=== PATIENT | female | born 1965 | race Two or more races ===

== ENCOUNTER 2020-04-25 14:45 | Outpatient (REF) | payer MEDICARE, MEDICAID, SELFPAY | END 2020-04-25 14:46 | disposition home or self-care (01) | LOC: HO.LAB 14:45 | PROVIDERS: PCP Internal Medicine; Visit Provider Internal Medicine | DX: Z20.828 Contact with and (suspected) exposure to other viral communicable diseases (principal) | CPT/HCPCS: 36415; 87635 ==

== ENCOUNTER 2020-06-30 12:10 | Outpatient (REF) | payer MEDICARE, MEDICAID, SELFPAY ==
--- NOTE | 2020-06-30 | MM_ITS ---
EXAMINATION: MM SCREENING DIGITAL BREAST TOMOSYNTHESIS, BILATERAL CLINICAL INFORMATION: Screening. Asymptomatic. The lifetime risk of breast cancer based on the Tyrer-Cuzick Model is 10.1%. COMPARISON: Mammography: February 19, 2019 and studies dating back to October 31, 2016 TECHNIQUE: Digital breast tomosynthesis is performed in both the craniocaudal and mediolateral oblique views along with computer-aided detection (CAD). Synthesized 2D images are generated from the tomosynthesis. FINDINGS: The breasts are heterogeneously dense, which may obscure small masses (ACR BI-RADS breast composition Category c). There are no significant masses, abnormal calcifications, or other abnormalities. MM/MM tomosynthesis screening BI IMPRESSION: There are no significant changes from prior study. ASSESSMENT: BI-RADS 1: Negative RECOMMENDATION: Routine annual mammography screening. This patient's information was entered into a reminder system with a target due date for their next mammogram.
== END 2020-06-30 12:11 | disposition home or self-care (01) ==
LOC: HO.MAMMO 12:10
PROVIDERS: PCP Internal Medicine; Visit Provider Internal Medicine
DX: M05.9 Rheumatoid arthritis with rheumatoid factor, unspecified (principal); F17.210 Nicotine dependence, cigarettes, uncomplicated; Z12.31 Encounter for screening mammogram for malignant neoplasm of breast; Z79.899 Other long term (current) drug therapy; Z79.891 Long term (current) use of opiate analgesic
CPT/HCPCS: 77063; 77067; Q3014

== ENCOUNTER 2020-07-11 11:06 | Outpatient (REF) | payer MEDICARE, MEDICAID, SELFPAY | END 2020-07-11 11:07 | disposition home or self-care (01) | LOC: HO.LAB 11:06 | PROVIDERS: PCP Internal Medicine; Visit Provider Internal Medicine | DX: Z20.828 Contact with and (suspected) exposure to other viral communicable diseases (principal); K59.4 Anal spasm; K64.9 Unspecified hemorrhoids; K21.9 Gastro-esophageal reflux disease without esophagitis; K59.04 Chronic idiopathic constipation | CPT/HCPCS: C9803; Q3014; U0003 ==

== ENCOUNTER 2020-07-26 11:30 | Outpatient (REF) | payer MEDICARE, MEDICAID, SELFPAY | END 2020-07-26 11:31 | disposition home or self-care (01) | LOC: HO.LAB 11:30 | PROVIDERS: Visit Provider Internal Medicine | DX: Z20.828 Contact with and (suspected) exposure to other viral communicable diseases (principal) | CPT/HCPCS: 36415; C9803; U0003 ==

== ENCOUNTER 2020-09-22 12:34 | Outpatient (REF) | payer MEDICARE, MEDICAID, SELFPAY ==
[2020-09-22 13:20] LABS: Hemoglobin 11.7 g/dl (12.0-16.0); MANUAL DIFF FLAG SCAN; Red Cell Distribution Width 14.6 % (11.0-16.0); SCAN SMEAR FLAG 1
[2020-09-22 13:22] LABS: Basophils Absolute Auto 0.1 X10*3/uL (0.0-0.2); Basophils Percent Auto 0.9 % (0-2); Eosinophils Absolute Auto 0.1 X10*3/uL (0.0-0.4); Eosinophils Percent Auto 1.6 % (0-4); Hematocrit 36.7 % (37-47); Imm Gran Abs Auto 0.02 X10*3/uL (0.00-0.03); Imm Gran Pct Auto 0.3 % (0.0-0.4); Mean Corpuscular HGB Conc 31.9 g/dl (31.0-35.0); Mean Corpuscular Hemoglobin 29.5 pg (27.0-33.0); Mean Corpuscular Volume 92.7 fL (80-98); Mean Platelet Volume 13.9 fL (9.4-12.3); Monocytes Absolute Auto 0.4 X10*3/uL (0.1-1.2); Monocytes Percent Auto 6.4 % (2-11); Neutrophils Absolute Auto 3.3 X10*3/uL (2.0-8.3); Neutrophils Percent Auto 56.8 % (45-73); Platelet Count 131 X10*3/uL (160-400); Red Blood Count 3.96 X10*6/uL (4.20-5.50); White Blood Count 5.7 X10*3/uL (4.8-10.8)
[2020-09-22 13:28] LABS: PLT ABN DIST 1
[2020-09-22 13:40] LABS: Alanine Aminotransferase 41 U/L (0-31); Albumin Level 4.4 g/dL (3.5-5.0); Alkaline Phosphatase 91 U/L (39-117); Anion Gap 10 (12-20); Aspartate Amino Transferase 25 U/L (5-31); Bilirubin Total 0.6 mg/dL (0.0-1.0); Blood Urea Nitrogen 14 mg/dL (9-16); C Reactive Protein 0.05 mg/dL (< or = 0.50); Calcium 10.3 mg/dL (8.4-10.2); Carbon Dioxide 26 mmol/L (22-29); Chloride 109 mmol/L (96-108); Estimated Glomerular Filt Rate > 60; Glucose Random 94 mg/dL (60-115); Potassium 4.3 mmol/L (3.3-5.1); Sodium 141 mmol/L (135-145); Total Protein 6.6 g/dL (6.5-8.0)
[2020-09-22 14:19] LABS: Erythrocyte Sedimentation Rate 2 MM/HR (0-20)
[2020-09-26 13:47] LABS: Calcium (PTHI) 10.4 mg/dL (8.6-10.4); PTHI 111 pg/mL (14-64)
== END 2020-09-22 12:35 | disposition home or self-care (01) ==
LOC: HO.LAB 12:34
PROVIDERS: PCP Student in an Organized Health Care Education/Training Program; Visit Provider Internal Medicine
DX: M05.9 Rheumatoid arthritis with rheumatoid factor, unspecified (principal); E21.2 Other hyperparathyroidism; E78.00 Pure hypercholesterolemia, unspecified; I10 Essential (primary) hypertension
CPT/HCPCS: 36415; 80053; 83970; 85025; 85652; 86140

== ENCOUNTER → 2020-09-28 14:59 | Outpatient (BNVA) | payer MEDICARE, MEDICAID, SELFPAY | PROVIDERS: PCP Internal Medicine; Visit Provider Student in an Organized Health Care Education/Training Program | DX: M05.9 Rheumatoid arthritis with rheumatoid factor, unspecified (principal); F17.200 Nicotine dependence, unspecified, uncomplicated; Z79.899 Other long term (current) drug therapy; Z71.6 Tobacco abuse counseling | CPT/HCPCS: 99212 ==

== ENCOUNTER → 2020-10-04 13:07 | Outpatient (BNVA) | payer MEDICARE, MEDICAID, SELFPAY | PROVIDERS: PCP Internal Medicine; Visit Provider Nurse Practitioner | DX: K59.04 Chronic idiopathic constipation (principal); K21.9 Gastro-esophageal reflux disease without esophagitis; K64.9 Unspecified hemorrhoids; K59.4 Anal spasm; R13.11 Dysphagia, oral phase | CPT/HCPCS: Q3014 ==

== ENCOUNTER 2020-10-19 14:28 | Outpatient (REF) | payer MEDICARE, MEDICAID, SELFPAY ==
--- NOTE | ~2020-10-19 | FL_ITS ---
EXAMINATION: FL BARIUM SWALLOW, MODIFIED CLINICAL INFORMATION: Dysphagia. COMPARISON: None TECHNIQUE: Lateral fluoroscopy was provided in upright sitting chair with oral administration of various consistencies of liquid and solid food by the speech therapist. FINDINGS: On oral administration of thin, thick liquids, semisolid and solid food, there is normal propagation of bolus from the oral cavity through the pharynx into the esophagus without any evidence of obstruction, narrowing. No laryngeal penetration or aspiration seen. FLUOROSCOPY TIME: 1.3 minutes. DOSE AREA PRODUCT: 1.064 uGy-m2 (microgray-meter squared). FL/FL barium swallow modified IMPRESSION: 1. Unremarkable modified barium swallow exam. 2. Correlate with speech therapy results.
== END 2020-10-19 14:29 | disposition home or self-care (01) ==
LOC: HO.XRAY 14:28
PROVIDERS: Visit Provider Nurse Practitioner
DX: R13.11 Dysphagia, oral phase (principal)
CPT/HCPCS: 74230; 92611

== ENCOUNTER 2020-11-29 11:52 | Outpatient (REF) | payer MEDICARE, MEDICAID, SELFPAY ==
[2020-11-29 13:19] LABS: MANUAL DIFF FLAG NO
[2020-11-29 13:42] LABS: Basophils Absolute Auto 0.1 X10*3/uL (0.0-0.2); Basophils Percent Auto 0.5 % (0-2); Eosinophils Absolute Auto 0.2 X10*3/uL (0.0-0.4); Eosinophils Percent Auto 1.7 % (0-4); Hematocrit 41.3 % (37-47); Hemoglobin 13.2 g/dl (12.0-16.0); Imm Gran Abs Auto 0.03 X10*3/uL (0.00-0.03); Imm Gran Pct Auto 0.3 % (0.0-0.4); Lymphocytes Absolute Auto 1.4 X10*3/uL (1.2-4.9); Lymphocytes Percent Auto 13.5 % (20-40); Mean Corpuscular Hemoglobin 29.5 pg (27.0-33.0); Mean Corpuscular Volume 92.2 fL (80-98); Mean Platelet Volume 13.6 fL (9.4-12.3); Monocytes Absolute Auto 0.4 X10*3/uL (0.1-1.2); Monocytes Percent Auto 3.9 % (2-11); Neutrophils Absolute Auto 8.3 X10*3/uL (2.0-8.3); Neutrophils Percent Auto 80.1 % (45-73); Platelet Count 161 X10*3/uL (160-400); Red Blood Count 4.48 X10*6/uL (4.20-5.50); Red Cell Distribution Width 15.7 % (11.0-16.0); White Blood Count 10.4 X10*3/uL (4.8-10.8)
[2020-11-29 13:50] LABS: Alanine Aminotransferase 23 U/L (0-31); Albumin Level 4.7 g/dL (3.5-5.0); Alkaline Phosphatase 92 U/L (39-117); Anion Gap 13 (12-20); Aspartate Amino Transferase 29 U/L (5-31); Bilirubin Total 0.8 mg/dL (0.0-1.0); Blood Urea Nitrogen 15 mg/dL (9-16); C Reactive Protein 0.08 mg/dL (< or = 0.50); Calcium 11.5 mg/dL (8.4-10.2); Carbon Dioxide 27 mmol/L (22-29); Chloride 105 mmol/L (96-108); Estimated Glomerular Filt Rate > 60; Glucose Random 104 mg/dL (60-115); Potassium 4.4 mmol/L (3.3-5.1); Sodium 141 mmol/L (135-145); Total Protein 7.5 g/dL (6.5-8.0)
[2020-11-29 14:33] LABS: Erythrocyte Sedimentation Rate 5 MM/HR (0-20)
== END 2020-11-29 11:53 | disposition home or self-care (01) ==
LOC: HO.LAB 11:52
PROVIDERS: PCP Internal Medicine; Visit Provider Student in an Organized Health Care Education/Training Program
DX: M05.9 Rheumatoid arthritis with rheumatoid factor, unspecified (principal)
CPT/HCPCS: 36415; 80053; 85025; 85652; 86140

== ENCOUNTER → 2020-12-01 14:23 | Outpatient (BNVA) | payer MEDICARE, MEDICAID, SELFPAY | PROVIDERS: PCP Internal Medicine; Visit Provider Student in an Organized Health Care Education/Training Program | DX: M05.9 Rheumatoid arthritis with rheumatoid factor, unspecified (principal); M77.01 Medial epicondylitis, right elbow; Z79.899 Other long term (current) drug therapy | CPT/HCPCS: 99212 ==

== ENCOUNTER 2021-03-03 06:42 | Outpatient (REF) | payer MEDICARE, MEDICAID, SELFPAY ==
--- NOTE | ~2021-03-03 | CT_ITS ---
EXAMINATION: CT ABDOMEN AND PELVIS WITHOUT CONTRAST CLINICAL INFORMATION: Right upper quadrant pain. COMPARISON: CT abdomen/pelvis dated 05/10/2018. Renal ultrasound dated 04/01/2019. TECHNIQUE: Multidetector volumetric imaging was performed from the superior aspect of the liver through the pubic symphysis. Sagittal and coronal reformatted images were obtained on the technologist's workstation. This CT examination was performed using dose optimization techniques as appropriate, variously including the following: *Automated exposure control *Adjustment of mA and/or kV according to patient size (this includes techniques or standardized protocols for targeted exams where dose is matched to indication/reason for exam; i.e. extremities or head) *Use of iterative reconstruction technique DLP: 349 mGy-cm FINDINGS: LUNG BASES: Within the visualized lung bases, there are new small cystic foci with mild peripheral wall thickening, which may represent areas of bronchiectasis versus dilated airspaces. Findings are new when compared to the prior examination. LIVER, GALLBLADDER, AND BILIARY TREE: The liver is normal in size, shape, and attenuation. No focal hepatic lesion or biliary ductal dilatation is present. The gallbladder is nondistended with no evidence of radiopaque gallstones, gallbladder wall thickening, or obvious pericholecystic inflammatory changes. PANCREAS: Unremarkable. SPLEEN: Unremarkable. ADRENAL GLANDS: Unremarkable. KIDNEYS AND URETERS: The kidneys are normal in size, shape, and attenuation. There is a distal right ureteral stone measuring approximately 0.8 x 0.7 x 0.9 cm and 1121 Hounsfield units. This is located approximately 1 cm proximal to the right ureterovesicular junction. There is [id number] right-sided hydroureteronephrosis. No left-sided renal or ureteral stone. No left-sided hydronephrosis or hydroureter. BLADDER: Unremarkable. GASTROINTESTINAL TRACT: No bowel wall thickening or associated inflammatory change. No small or large bowel obstruction. Unremarkable appendix. PERITONEAL CAVITY: No intra-abdominal free air or free fluid. No intra-abdominal mass or organized fluid collection/abscess formation. ABDOMINAL WALL: No significant hernia is appreciated. LYMPH NODES: No significant lymphadenopathy, however, evaluation is limited without IV contrast. VASCULAR: Unremarkable. PELVIC VISCERA: The uterus and adnexa are unremarkable. OSSEOUS STRUCTURES: Unremarkable. CT/CT abdomen pelvis wo con IMPRESSION: 1. Distal right ureteral stone measuring up to 0.9 cm located approximately 1 cm proximal to the right ureterovesicular junction. There is [id number] proximal right-sided hydroureteronephrosis. 2. Small cystic foci within the visualized lung bases with peripheral wall thickening, new when compared to the prior examination. This may represent bronchiectasis versus dilated airspaces. If there is clinical concern, dedicated CT imaging of the chest could help further evaluate.
[2021-03-03] MEDS: Barium Sulfate Oral (Mocha) 450 ML ORAL.SUSP 900 ML PO (09:06)
[2021-03-03 10:22] LABS: MANUAL DIFF FLAG NO
[2021-03-03 10:33] LABS: Basophils Absolute Auto 0.1 X10*3/uL (0.0-0.2); Basophils Percent Auto 0.9 % (0-2); Eosinophils Absolute Auto 0.2 X10*3/uL (0.0-0.4); Eosinophils Percent Auto 2.7 % (0-4); Hemoglobin 11.9 g/dl (12.0-16.0); Imm Gran Abs Auto 0.01 X10*3/uL (0.00-0.03); Imm Gran Pct Auto 0.1 % (0.0-0.4); Lymphocytes Absolute Auto 2.4 X10*3/uL (1.2-4.9); Lymphocytes Percent Auto 31.5 % (20-40); Mean Corpuscular HGB Conc 32.2 g/dl (31.0-35.0); Monocytes Absolute Auto 0.5 X10*3/uL (0.1-1.2); Monocytes Percent Auto 6.5 % (2-11); Neutrophils Absolute Auto 4.4 X10*3/uL (2.0-8.3); Neutrophils Percent Auto 58.3 % (45-73); Platelet Count 129 X10*3/uL (160-400); Red Blood Count 4.11 X10*6/uL (4.20-5.50); Red Cell Distribution Width 15.3 % (11.0-16.0); White Blood Count 7.5 X10*3/uL (4.8-10.8)
[2021-03-03 10:44] LABS: Alanine Aminotransferase 20 U/L (0-31); Albumin Level 4.3 g/dL (3.5-5.0); Alkaline Phosphatase 80 U/L (39-117); Anion Gap 12 (12-20); Aspartate Amino Transferase 22 U/L (5-31); Bilirubin Total 0.3 mg/dL (0.0-1.0); Blood Urea Nitrogen 14 mg/dL (9-16); C Reactive Protein 0.07 mg/dL (< or = 0.50); Calcium 8.9 mg/dL (8.4-10.2); Carbon Dioxide 27 mmol/L (22-29); Chloride 109 mmol/L (96-108); Estimated Glomerular Filt Rate > 60; Glucose Random 80 mg/dL (60-115); Potassium 4.5 mmol/L (3.3-5.1); Sodium 143 mmol/L (135-145); Total Protein 6.9 g/dL (6.5-8.0)
[2021-03-03 11:14] LABS: Erythrocyte Sedimentation Rate 3 MM/HR (0-20)
== END 2021-03-03 06:43 | disposition home or self-care (01) ==
LOC: HO.CT 06:42
PROVIDERS: Absent Provider Student in an Organized Health Care Education/Training Program; PCP Internal Medicine; Visit Provider Internal Medicine
DX: M05.9 Rheumatoid arthritis with rheumatoid factor, unspecified (principal); R10.11 Right upper quadrant pain; N13.39 Other hydronephrosis
CPT/HCPCS: 36415; 74176; 80053; 85025; 85652; 86140

== ENCOUNTER → 2021-03-09 12:24 | Outpatient (BNVA) | payer MEDICARE, MEDICAID, SELFPAY | PROVIDERS: PCP Internal Medicine; Visit Provider Nurse Practitioner Family | DX: M05.9 Rheumatoid arthritis with rheumatoid factor, unspecified (principal); M77.01 Medial epicondylitis, right elbow; Z79.899 Other long term (current) drug therapy | CPT/HCPCS: 99212 ==

== ENCOUNTER → 2021-03-30 12:30 | Outpatient (BNVA) | payer MEDICARE, MEDICAID, SELFPAY | PROVIDERS: PCP Internal Medicine; Visit Provider Nurse Practitioner Family | DX: M05.9 Rheumatoid arthritis with rheumatoid factor, unspecified (principal); Z79.899 Other long term (current) drug therapy | CPT/HCPCS: 99212 ==

== ENCOUNTER → 2021-04-03 13:18 | Outpatient (BNVA) | payer MEDICARE, MEDICAID, SELFPAY | PROVIDERS: PCP Internal Medicine; Visit Provider Nurse Practitioner | CPT/HCPCS: Q3014 ==

== ENCOUNTER 2021-04-05 14:06 | Outpatient (REF) | payer MEDICARE, MEDICAID, SELFPAY ==
[2021-04-05 15:12] LABS: Anion Gap 13 (12-20); Blood Urea Nitrogen 9 mg/dL (9-16); Carbon Dioxide 27 mmol/L (22-29); Chloride 107 mmol/L (96-108); Estimated Glomerular Filt Rate > 60; Potassium 3.8 mmol/L (3.3-5.1); Sodium 143 mmol/L (135-145)
== END 2021-04-05 14:07 | disposition home or self-care (01) ==
LOC: HO.LAB 14:06
PROVIDERS: PCP Internal Medicine; Visit Provider Internal Medicine Nephrology
DX: E83.52 Hypercalcemia (principal); I10 Essential (primary) hypertension
CPT/HCPCS: 36415; 80051; 82310; 82565; 84520

== ENCOUNTER 2021-05-05 11:19 | Outpatient (REF) | payer MEDICARE, MEDICAID, SELFPAY ==
[2021-05-05 11:56] LABS: MANUAL DIFF FLAG NO
[2021-05-05 12:01] LABS: Basophils Percent Auto 0.5 % (0-2); Eosinophils Absolute Auto 0.2 X10*3/uL (0.0-0.4); Eosinophils Percent Auto 2.3 % (0-4); Hematocrit 38.4 % (37-47); Hemoglobin 12.7 g/dl (12.0-16.0); Imm Gran Abs Auto 0.02 X10*3/uL (0.00-0.03); Imm Gran Pct Auto 0.3 % (0.0-0.4); Mean Corpuscular HGB Conc 33.1 g/dl (31.0-35.0); Mean Corpuscular Hemoglobin 29.6 pg (27.0-33.0); Mean Corpuscular Volume 89.5 fL (80-98); Mean Platelet Volume 12.3 fL (9.4-12.3); Monocytes Absolute Auto 0.5 X10*3/uL (0.1-1.2); Monocytes Percent Auto 6.4 % (2-11); Neutrophils Absolute Auto 4.8 X10*3/uL (2.0-8.3); Neutrophils Percent Auto 63.5 % (45-73); Platelet Count 178 X10*3/uL (160-400); Red Blood Count 4.29 X10*6/uL (4.20-5.50); Red Cell Distribution Width 15.5 % (11.0-16.0); White Blood Count 7.5 X10*3/uL (4.8-10.8)
[2021-05-05 12:38] LABS: Alanine Aminotransferase 14 U/L (0-31); Albumin Level 4.6 g/dL (3.5-5.0); Alkaline Phosphatase 66 U/L (39-117); Anion Gap 12 (12-20); Aspartate Amino Transferase 19 U/L (5-31); Bilirubin Total 0.5 mg/dL (0.0-1.0); Blood Urea Nitrogen 13 mg/dL (9-16); Calcium 9.1 mg/dL (8.4-10.2); Carbon Dioxide 26 mmol/L (22-29); Chloride 108 mmol/L (96-108); Cholesterol 196 mg/dL; Estimated Glomerular Filt Rate > 60; Glucose Random 91 mg/dL (60-115); HDL Cholesterol 96 mg/dL; LDL Cholesterol Calculated 91 mg/dl; Potassium 4.6 mmol/L (3.3-5.1); Sodium 141 mmol/L (135-145); Total Protein 7.1 g/dL (6.5-8.0); Triglycerides 49 mg/dL
[2021-05-08 13:41] LABS: Calcium (PTHI) 8.8 mg/dL (8.6-10.4); PTHI 27 pg/mL (14-64)
== END 2021-05-05 11:20 | disposition home or self-care (01) ==
LOC: HO.LAB 11:19
PROVIDERS: PCP Internal Medicine; Visit Provider Internal Medicine
DX: Z00.01 Encounter for general adult medical examination with abnormal findings (principal); I10 Essential (primary) hypertension; N13.39 Other hydronephrosis; R10.11 Right upper quadrant pain
CPT/HCPCS: 36415; 80053; 80061; 83970; 85025

== ENCOUNTER 2021-05-25 12:15 | Outpatient (REF) | payer MEDICARE, MEDICAID, SELFPAY ==
[2021-05-25 13:00] LABS: Basophils Absolute Auto 0.1 X10*3/uL (0.0-0.2); Basophils Percent Auto 0.4 % (0-2); Lymphocytes Absolute Auto 2.1 X10*3/uL (1.2-4.9); MANUAL DIFF FLAG SCAN; Neutrophils Percent Auto 72.8 % (45-73); SCAN SMEAR FLAG 1
[2021-05-25 13:02] LABS: Eosinophils Absolute Auto 0.1 X10*3/uL (0.0-0.4); Eosinophils Percent Auto 0.8 % (0-4); Hematocrit 40.4 % (37.0-47.0); Hemoglobin 13.1 g/dl (12.0-16.0); Imm Gran Abs Auto 0.06 X10*3/uL (0.00-0.03); Imm Gran Pct Auto 0.5 % (0.0-0.4); Lymphocytes Percent Auto 18.7 % (20-40); Mean Corpuscular HGB Conc 32.4 g/dl (31.0-35.0); Mean Corpuscular Hemoglobin 29.4 pg (27.0-33.0); Mean Corpuscular Volume 90.6 fL (80.0-98.0); Mean Platelet Volume 13.7 fL (9.4-12.3); Monocytes Absolute Auto 0.8 X10*3/uL (0.1-1.2); Monocytes Percent Auto 6.8 % (2-11); PLT CLUMP 1; Red Blood Count 4.46 X10*6/uL (4.20-5.50); Red Cell Distribution Width 15.6 % (11.0-16.0)
[2021-05-25 13:15] LABS: PLT ABN DIST 1
[2021-05-25 13:21] LABS: Platelet Count 151 X10*3/uL (160-400); White Blood Count 11.4 X10*3/uL (4.8-10.8)
[2021-05-25 13:22] LABS: SLIDE REVIEW VERIFIED
[2021-05-25 13:34] LABS: Alanine Aminotransferase 28 U/L (0-31); Albumin Level 4.7 g/dL (3.5-5.0); Alkaline Phosphatase 72 U/L (39-117); Anion Gap 14 (12-20); Aspartate Amino Transferase 29 U/L (5-31); Bilirubin Total 0.5 mg/dL (0.0-1.0); Blood Urea Nitrogen 16 mg/dL (9-16); C Reactive Protein 0.08 mg/dL (< or = 0.50); Carbon Dioxide 25 mmol/L (22-29); Chloride 108 mmol/L (96-108); Estimated Glomerular Filt Rate > 60; Glucose Random 95 mg/dL (60-115); Sodium 142 mmol/L (135-145); Total Protein 7.7 g/dL (6.5-8.0)
[2021-05-25 13:52] LABS: Erythrocyte Sedimentation Rate 5 MM/HR (0-20)
== END 2021-05-25 12:16 | disposition home or self-care (01) ==
LOC: HO.LAB 12:15
PROVIDERS: PCP Internal Medicine; Visit Provider Nurse Practitioner Family
DX: M05.9 Rheumatoid arthritis with rheumatoid factor, unspecified (principal); K59.04 Chronic idiopathic constipation; K21.9 Gastro-esophageal reflux disease without esophagitis; Z80.0 Family history of malignant neoplasm of digestive organs; Z79.899 Other long term (current) drug therapy
CPT/HCPCS: 36415; 80053; 85025; 85652; 86140; Q3014

== ENCOUNTER 2021-05-29 12:58 | Outpatient (REF) | payer MEDICARE, MEDICAID, SELFPAY ==
--- NOTE | ~2021-05-29 | XR_ITS ---
EXAMINATION: XR HAND, RIGHT XR HAND, LEFT CLINICAL INFORMATION: Rheumatoid arthritis COMPARISON: None TECHNIQUE: Right hand, 3 views Left ankle, 3 views FINDINGS: Right hand: Bones have normal alignment throughout the hand or wrist. The joint spaces of the wrist are well-preserved. There is 0.3 cm of ulna negative variance. The metacarpophalangeal joints and proximal interphalangeal joints are unremarkable. Small osteophytes and mild joint space narrowing at second and third DIP joints. No periarticular osteoporosis, erosions or periostitis. Left hand: Bones have normal alignment throughout the hand or wrist. The joint spaces of the wrist are well-preserved. There is 0.3 cm of ulna negative variance. The metacarpophalangeal joints and proximal interphalangeal joints are unremarkable. Small osteophytes are noted at several interphalangeal joints. No periarticular osteoporosis, erosions or periostitis. XR/XR hand LT min 3V IMPRESSION: * No radiographic evidence of rheumatoid arthritis in either hand or wrist. 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
--- NOTE | ~2021-05-29 | XR_ITS ---
EXAMINATION: XR HAND, RIGHT XR HAND, LEFT CLINICAL INFORMATION: Rheumatoid arthritis COMPARISON: None TECHNIQUE: Right hand, 3 views Left ankle, 3 views FINDINGS: Right hand: Bones have normal alignment throughout the hand or wrist. The joint spaces of the wrist are well-preserved. There is 0.3 cm of ulna negative variance. The metacarpophalangeal joints and proximal interphalangeal joints are unremarkable. Small osteophytes and mild joint space narrowing at second and third DIP joints. No periarticular osteoporosis, erosions or periostitis. Left hand: Bones have normal alignment throughout the hand or wrist. The joint spaces of the wrist are well-preserved. There is 0.3 cm of ulna negative variance. The metacarpophalangeal joints and proximal interphalangeal joints are unremarkable. Small osteophytes are noted at several interphalangeal joints. No periarticular osteoporosis, erosions or periostitis. XR/XR hand RT min 3V IMPRESSION: * No radiographic evidence of rheumatoid arthritis in either hand or wrist. 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
== END 2021-05-29 12:59 | disposition home or self-care (01) ==
LOC: HO.XRAY 12:58
PROVIDERS: PCP Internal Medicine; Visit Provider Nurse Practitioner Family
DX: M05.9 Rheumatoid arthritis with rheumatoid factor, unspecified (principal); M79.641 Pain in right hand; M79.642 Pain in left hand; Z79.899 Other long term (current) drug therapy
CPT/HCPCS: 73130; 99212

== ENCOUNTER 2021-06-05 11:47 | Outpatient (REF) | payer MEDICARE, MEDICAID, SELFPAY ==
[2021-06-05 12:16] LABS: Basophils Absolute Auto 0.1 X10*3/uL (0.0-0.2); Basophils Percent Auto 0.8 % (0-2); Eosinophils Absolute Auto 0.2 X10*3/uL (0.0-0.4); Eosinophils Percent Auto 1.6 % (0-4); Imm Gran Abs Auto 0.04 X10*3/uL (0.00-0.03); Imm Gran Pct Auto 0.4 % (0.0-0.4); MANUAL DIFF FLAG SCAN; SCAN SMEAR FLAG 1
[2021-06-05 12:17] LABS: Hematocrit 40.8 % (37.0-47.0); Hemoglobin 13.2 g/dl (12.0-16.0); Lymphocytes Absolute Auto 2.1 X10*3/uL (1.2-4.9); Lymphocytes Percent Auto 21.3 % (20-40); Mean Corpuscular HGB Conc 32.4 g/dl (31.0-35.0); Mean Corpuscular Hemoglobin 29.5 pg (27.0-33.0); Mean Corpuscular Volume 91.1 fL (80.0-98.0); Mean Platelet Volume 13.8 fL (9.4-12.3); Monocytes Absolute Auto 0.5 X10*3/uL (0.1-1.2); Monocytes Percent Auto 5.2 % (2-11); Neutrophils Absolute Auto 6.8 x10*3/uL (2.0-8.3); Neutrophils Percent Auto 70.7 % (45-73); Platelet Count 152 X10*3/uL (160-400); Red Blood Count 4.48 X10*6/uL (4.20-5.50); Red Cell Distribution Width 15.4 % (11.0-16.0); White Blood Count 9.7 X10*3/uL (4.8-10.8)
[2021-06-05 12:19] LABS: PLT ABN DIST 1
[2021-06-05 12:35] LABS: SLIDE REVIEW VERIFIED
[2021-06-05 12:51] LABS: Alanine Aminotransferase 60 U/L (0-31); Albumin Level 4.6 g/dL (3.5-5.0); Alkaline Phosphatase 80 U/L (39-117); Anion Gap 16 (12-20); Aspartate Amino Transferase 50 U/L (5-31); Bilirubin Total 0.4 mg/dL (0.0-1.0); Blood Urea Nitrogen 14 mg/dL (9-16); Calcium 9.1 mg/dL (8.4-10.2); Carbon Dioxide 24 mmol/L (22-29); Chloride 107 mmol/L (96-108); Estimated Glomerular Filt Rate > 60; Glucose Random 98 mg/dL (60-115); Potassium 4.6 mmol/L (3.3-5.1); Sodium 142 mmol/L (135-145); Total Protein 7.5 g/dL (6.5-8.0)
== END 2021-06-05 11:48 | disposition home or self-care (01) ==
LOC: HO.LAB 11:47
PROVIDERS: PCP Internal Medicine; Visit Provider Internal Medicine
DX: Z00.00 Encounter for general adult medical examination without abnormal findings (principal); I10 Essential (primary) hypertension; F32.9 Major depressive disorder, single episode, unspecified; F41.8 Other specified anxiety disorders
CPT/HCPCS: 36415; 80053; 85025

== ENCOUNTER 2021-07-27 13:56 | Outpatient (REF) | payer MEDICARE, MEDICAID, SELFPAY ==
[2021-07-27 14:48] LABS: Basophils Absolute Auto 0.1 X10*3/uL (0.0-0.2); Basophils Percent Auto 0.9 % (0-2); Hematocrit 41.5 % (37.0-47.0); Imm Gran Abs Auto 0.03 X10*3/uL (0.00-0.03); Imm Gran Pct Auto 0.4 % (0.0-0.4); MANUAL DIFF FLAG SCAN; SCAN SMEAR FLAG 1
[2021-07-27 14:49] LABS: Eosinophils Absolute Auto 0.1 X10*3/uL (0.0-0.4); Eosinophils Percent Auto 1.5 % (0-4); Hemoglobin 13.5 g/dl (12.0-16.0); Lymphocytes Absolute Auto 1.6 X10*3/uL (1.2-4.9); Lymphocytes Percent Auto 20.6 % (20-40); Mean Corpuscular HGB Conc 32.5 g/dl (31.0-35.0); Mean Corpuscular Hemoglobin 28.4 pg (27.0-33.0); Mean Corpuscular Volume 87.2 fL (80.0-98.0); Mean Platelet Volume 14.3 fL (9.4-12.3); Monocytes Absolute Auto 0.4 X10*3/uL (0.1-1.2); Monocytes Percent Auto 5.4 % (2-11); Neutrophils Absolute Auto 5.7 x10*3/uL (2.0-8.3); Neutrophils Percent Auto 71.2 % (45-73); Platelet Count 150 X10*3/uL (160-400); Red Blood Count 4.76 X10*6/uL (4.20-5.50); Red Cell Distribution Width 13.4 % (11.0-16.0); White Blood Count 7.9 X10*3/uL (4.8-10.8)
[2021-07-27 14:52] LABS: PLT ABN DIST 1
[2021-07-27 15:14] LABS: Alanine Aminotransferase 15 U/L (0-31); Albumin Level 4.5 g/dL (3.5-5.0); Alkaline Phosphatase 87 U/L (39-117); Anion Gap 13 (12-20); Aspartate Amino Transferase 20 U/L (5-31); Bilirubin Total 0.4 mg/dL (0.0-1.0); Blood Urea Nitrogen 13 mg/dL (9-16); C Reactive Protein 0.14 mg/dL (< or = 0.50); Calcium 9.3 mg/dL (8.4-10.2); Carbon Dioxide 25 mmol/L (22-29); Chloride 109 mmol/L (96-108); Estimated Glomerular Filt Rate > 60; Glucose Random 94 mg/dL (60-115); Potassium 4.4 mmol/L (3.3-5.1); Sodium 143 mmol/L (135-145); Total Protein 7.4 g/dL (6.5-8.0)
[2021-07-27 15:50] LABS: Erythrocyte Sedimentation Rate 4 MM/HR (0-20)
== END 2021-07-27 13:57 | disposition home or self-care (01) ==
LOC: HO.LAB 13:56
PROVIDERS: PCP Internal Medicine; Visit Provider Nurse Practitioner Family
DX: M05.9 Rheumatoid arthritis with rheumatoid factor, unspecified (principal); Z79.899 Other long term (current) drug therapy
CPT/HCPCS: 36415; 80053; 85025; 85652; 86140

== ENCOUNTER → 2021-07-31 11:32 | Outpatient (BNVA) | payer MEDICARE, MEDICAID, SELFPAY | PROVIDERS: PCP Internal Medicine; Visit Provider Nurse Practitioner Family | DX: M05.9 Rheumatoid arthritis with rheumatoid factor, unspecified (principal); Z79.899 Other long term (current) drug therapy | CPT/HCPCS: 99212 ==

== ENCOUNTER 2021-08-30 12:43 | Outpatient (REF) | payer MEDICARE, MEDICAID, SELFPAY ==
[2021-08-30 13:11] LABS: MANUAL DIFF FLAG NO
[2021-08-30 14:02] LABS: Basophils Percent Auto 0.6 % (0-2); Eosinophils Absolute Auto 0.1 X10*3/uL (0.0-0.4); Eosinophils Percent Auto 1.1 % (0-4); Hemoglobin 12.9 g/dl (12.0-16.0); Imm Gran Abs Auto 0.02 X10*3/uL (0.00-0.03); Imm Gran Pct Auto 0.3 % (0.0-0.4); Lymphocytes Absolute Auto 1.7 X10*3/uL (1.2-4.9); Lymphocytes Percent Auto 23.8 % (20-40); Mean Corpuscular HGB Conc 33.1 g/dl (31.0-35.0); Mean Corpuscular Hemoglobin 28.4 pg (27.0-33.0); Mean Corpuscular Volume 85.7 fL (80.0-98.0); Mean Platelet Volume 13.2 fL (9.4-12.3); Monocytes Absolute Auto 0.4 X10*3/uL (0.1-1.2); Monocytes Percent Auto 5.9 % (2-11); Neutrophils Percent Auto 68.3 % (45-73); Platelet Count 147 X10*3/uL (160-400); Red Blood Count 4.55 X10*6/uL (4.20-5.50); Red Cell Distribution Width 14.6 % (11.0-16.0); White Blood Count 7.3 X10*3/uL (4.8-10.8)
[2021-08-30 14:39] LABS: Erythrocyte Sedimentation Rate 4 MM/HR (0-20)
[2021-08-30 14:45] LABS: Iron 112 mcg/dL (30-160); Percent Iron Saturation 36 % (15-50); Total Iron Binding Capacity 315 mcg/dL (228-428); Unsaturated Iron Binding 203 ug/dL
[2021-08-30 14:52] LABS: Ferritin 96 ng/mL (10-250)
[2021-08-30 14:57] LABS: Alanine Aminotransferase 12 U/L (0-31); Albumin Level 4.5 g/dL (3.5-5.0); Alkaline Phosphatase 72 U/L (39-117); Anion Gap 11 (12-20); Aspartate Amino Transferase 19 U/L (5-31); Bilirubin Total 0.4 mg/dL (0.0-1.0); C Reactive Protein 0.09 mg/dL (< or = 0.50); Carbon Dioxide 26 mmol/L (22-29); Chloride 108 mmol/L (96-108); Estimated Glomerular Filt Rate > 60; Glucose Random 96 mg/dL (60-115); Potassium 4.5 mmol/L (3.3-5.1); Sodium 140 mmol/L (135-145); Total Protein 7.2 g/dL (6.5-8.0)
[2021-08-30 15:48] LABS: Blood Urea Nitrogen 12 mg/dL (9-16); Calcium 9.5 mg/dL (8.4-10.2)
[2021-08-31 10:29] LABS: HBsAGNum1 0.15 S/CO (0.00-0.99); Hepatitis B Surface Antigen Negative (Negative); ~HepC Num1 0.08 S/CO (0.00-0.79); ~Hepatitis C Antibody Nonreactive (Nonreactive)
[2021-08-31 11:28] LABS: HBS Num1 0.23 mIU/mL (0-7.99); HBc Num1 0.06 S/CO (0.00-0.79); Hepatitis B Core Antibody Nonreactive (Nonreactive); ~Hepatitis B Surface Antibody NONREACTIVE (Nonreactive)
[2021-09-01 09:14] LABS: ~Hepatitis A Antibody IgM Nonreactive (Nonreactive)
[2021-09-01 11:51] LABS: Anti Nuclear Antibody Screen NEGATIVE (NEGATIVE)
[2021-09-04 13:27] LABS: Smooth Muscle Antibody <20 U (<20)
== END 2021-08-30 12:44 | disposition home or self-care (01) ==
LOC: HO.LAB 12:43
PROVIDERS: Absent Provider Nurse Practitioner Family; PCP Internal Medicine; Visit Provider Internal Medicine
DX: E89.2 Postprocedural hypoparathyroidism (principal); F32.5 Major depressive disorder, single episode, in full remission; I10 Essential (primary) hypertension; R74.01 Elevation of levels of liver transaminase levels; M05.9 Rheumatoid arthritis with rheumatoid factor, unspecified; Z79.899 Other long term (current) drug therapy
CPT/HCPCS: 36415; 80053; 82728; 83540; 85025; 85652; 86015; 86038; 86039; 86140; 86704; 86706; 86709; 86803; 87340

== ENCOUNTER 2021-09-12 13:50 | Outpatient (REF) | payer MEDICARE, MEDICAID, SELFPAY ==
--- NOTE | ~2021-09-12 | US_ITS ---
EXAMINATION: US RETROPERITONEAL LIMITED (RENAL ONLY) CLINICAL INFORMATION: No calculus of ureter. COMPARISON: CT abdomen pelvis 03/03/2021. X-ray KUB 04/01/2019. Ultrasound renal 04/01/2019. TECHNIQUE: Real-time imaging of the kidneys and bladder. FINDINGS: RIGHT KIDNEY: 10.9 x 3.6 x 5.1 cm (SAG x AP x TRV). The kidney is normal in size, contour, and echogenicity. Renal cortical thickness is normal. There is a tiny punctate echogenic focus with twinkle artifact in the midpole questionable for a stone. No hydronephrosis. The visualized right proximal ureter is slightly dilated. LEFT KIDNEY: 10.2 x 4.4 x 4.2 cm (SAG x AP x TRV). The kidney is normal in size, contour, and echogenicity. Renal cortical thickness is normal. No calculi or focal parenchymal lesions. No hydronephrosis. US/US renal BI IMPRESSION: Question tiny right renal stone. No hydronephrosis. Mild dilatation of the visualized proximal right ureter. Normal left kidney.
== END 2021-09-12 13:51 | disposition home or self-care (01) ==
LOC: HO.US 13:50
PROVIDERS: Visit Provider Urology
DX: N20.1 Calculus of ureter (principal)
CPT/HCPCS: 76775

== ENCOUNTER 2021-09-28 13:24 | Outpatient (REF) | payer MEDICARE, MEDICAID, SELFPAY ==
--- NOTE | ~2021-09-28 | MM_ITS ---
EXAMINATION: BONE DENSITOMETRY CLINICAL INDICATION: Postmenopausal. COMPARISON: Baseline BD dated 02/04/2018. TECHNIQUE: Using a Rapid Vocabulary DXA System (software version: 13.1) manufactured by [employer], dual-energy x-ray absorptiometry was performed of the lumbar spine and left hip. The images are of good technical quality. Summary results are attached. FINDINGS: AP SPINE L1-L4: Current: BMD 0.894 g/cm2, Z-score -1.3, T-score -2.4, osteopenia, 5.9% decrease from baseline (<5% change is not significant). Baseline: BMD 0.950 g/cm2. LEFT FEMUR, NECK: Current: BMD 0.670 g/cm2, Z-score -1.5, T-score -2.6, osteoporosis. Baseline: BMD 0.777 g/cm2. LEFT FEMUR, TOTAL: Current: BMD 0.704 g/cm2, Z-score -1.6, T-score -2.4, osteopenia, 11.7% decrease from baseline (<5% change is not significant). Baseline: BMD 0.797 g/cm2. IDENTIFIED RISK FACTORS: Rheumatoid arthritis, tobacco use (current smoker), height loss, glucocorticoids (chronic), menopause. HISTORY OF FRACTURE: None listed. MEDICATIONS: Calcium supplements or multivitamin, vitamin D. MM/XR DEXA axial skeleton IMPRESSION: 1. DIAGNOSIS: Osteoporosis based on the lowest T-score value of -2.6 in the femoral neck applying World Health Organization criteria. 2. 10-YEAR FRACTURE RISK PREDICTION, FRAX: According to the guidelines, FRAX calculation should only be performed on patients in the osteopenia bone density category. Therefore, FRAX was not performed on this patient. 3. Treatment Recommendations: NOF guidelines recommend consideration for treatment in postmenopausal women and men age 50 and older presenting with the following: -A hip or vertebral (clinical or morphometric) fracture. -T-score less than or equal to -2.5 at the femoral neck or spine after appropriate evaluation to exclude secondary causes. -Low bone mass at the hip or spine and a 10-year fracture probability by FRAX of greater than or equal to 3% for hip fracture or greater than or equal to 20% for major osteoporotic fracture based on the [place] adapted WHO algorithm. 4. Other Recommendations: All treatment decisions require clinical judgment and consideration of individual patient factors, including patient preferences, comorbidities, previous drug use, risk factors not captured in the FRAX model (e.g. frailty, falls, vitamin D deficiency, increased bone turnover, interval significant decline in bone density) and possible under or overestimation of fracture risk by FRAX. Additional medical evaluation for secondary cause of low bone mineral density may be appropriate. FUTURE SCAN RECOMMENDATION: People with diagnosed cases of osteoporosis or at high risk for fracture should have regular bone mineral density tests. For patients eligible for Medicare, routine testing is allowed once every 2 years. The testing frequency can be increased to one year for patients who have rapidly progressing disease, those who are receiving or discontinuing medical therapy to restore bone mass, or have additional risk factors.
--- NOTE | ~2021-09-28 | MM_ITS ---
EXAMINATION: MM SCREENING DIGITAL BREAST TOMOSYNTHESIS, BILATERAL CLINICAL INFORMATION: Screening. Asymptomatic. The lifetime risk of breast cancer based on the Tyrer-Cuzick Model is 13%. COMPARISON: Mammography: 06/30/2020, 02/19/2019, 02/04/2018 TECHNIQUE: Digital breast tomosynthesis is performed in both the craniocaudal and mediolateral oblique views along with computer-aided detection (CAD). Synthesized 2D images are generated from the tomosynthesis. FINDINGS: There are scattered areas of fibroglandular density (ACR BI-RADS breast composition Category b). There are no significant masses, abnormal calcifications, or other abnormalities. There is stable parenchymal asymmetry mid upper right breast similar to prior studies. No developing density. There are stable calcifications central and central inner right breast on CC view similar to prior exams. The axilla and skin contours are unremarkable. No significant changes. MM/MM tomosynthesis screening BI IMPRESSION: No mammographic evidence of malignancy. ASSESSMENT: BI-RADS 2: Benign RECOMMENDATION: Routine annual mammography screening. This patient's information was entered into a reminder system with a target due date for their next mammogram.
== END 2021-09-28 13:25 | disposition home or self-care (01) ==
LOC: HO.MAMMO 13:24
PROVIDERS: PCP Internal Medicine; Visit Provider Internal Medicine
DX: Z12.31 Encounter for screening mammogram for malignant neoplasm of breast (principal); Z13.820 Encounter for screening for osteoporosis; M81.0 Age-related osteoporosis without current pathological fracture; M05.9 Rheumatoid arthritis with rheumatoid factor, unspecified; Z78.0 Asymptomatic menopausal state; E27.49 Other adrenocortical insufficiency; F17.200 Nicotine dependence, unspecified, uncomplicated; Z79.899 Other long term (current) drug therapy
CPT/HCPCS: 77063; 77067; 77080

== ENCOUNTER → 2021-11-01 11:30 | Outpatient (BNVA) | payer MEDICARE, MEDICAID, SELFPAY | PROVIDERS: PCP Internal Medicine; Visit Provider Nurse Practitioner Family | DX: M05.9 Rheumatoid arthritis with rheumatoid factor, unspecified (principal); Z79.899 Other long term (current) drug therapy | CPT/HCPCS: 99212 ==

== ENCOUNTER → 2021-11-23 16:26 | Outpatient (BNVA) | payer OTHER, MEDICAID, SELFPAY | PROVIDERS: PCP Internal Medicine; Visit Provider Nurse Practitioner | DX: Z13.89 Encounter for screening for other disorder (principal) ==

== ENCOUNTER 2022-01-09 13:35 | Outpatient (REF) | payer MEDICARE, MEDICAID, SELFPAY ==
[2022-01-09 13:45] LABS: MANUAL DIFF FLAG NO
[2022-01-09 13:53] LABS: Basophils Percent Auto 0.4 % (0-2); Eosinophils Absolute Auto 0.1 X10*3/uL (0.0-0.4); Eosinophils Percent Auto 1.1 % (0-4); Hematocrit 38.5 % (37.0-47.0); Hemoglobin 12.5 g/dl (12.0-16.0); Imm Gran Abs Auto 0.05 X10*3/uL (0.00-0.03); Imm Gran Pct Auto 0.5 % (0.0-0.4); Lymphocytes Absolute Auto 1.8 X10*3/uL (1.2-4.9); Mean Corpuscular HGB Conc 32.5 g/dl (31.0-35.0); Mean Corpuscular Hemoglobin 28.5 pg (27.0-33.0); Mean Corpuscular Volume 87.7 fL (80.0-98.0); Mean Platelet Volume 12.8 fL (9.4-12.3); Monocytes Absolute Auto 0.5 X10*3/uL (0.1-1.2); Monocytes Percent Auto 4.5 % (2-11); Neutrophils Absolute Auto 7.7 x10*3/uL (2.0-8.3); Neutrophils Percent Auto 75.5 % (45-73); Platelet Count 150 X10*3/uL (160-400); Red Blood Count 4.39 X10*6/uL (4.20-5.50); White Blood Count 10.1 X10*3/uL (4.8-10.8)
[2022-01-09 15:06] LABS: Erythrocyte Sedimentation Rate 6 MM/HR (0-20)
[2022-01-09 15:54] LABS: Alanine Aminotransferase 12 U/L (0-31); Alkaline Phosphatase 73 U/L (39-117); Anion Gap 13 (12-20); Aspartate Amino Transferase 18 U/L (5-31); Bilirubin Total 0.2 mg/dL (0.0-1.0); Blood Urea Nitrogen 8 mg/dL (9-16); Calcium 8.6 mg/dL (8.4-10.2); Carbon Dioxide 25 mmol/L (22-29); Chloride 107 mmol/L (96-108); Estimated Glomerular Filt Rate > 60; Glucose Random 119 mg/dL (60-115); Potassium 4.8 mmol/L (3.3-5.1); Sodium 140 mmol/L (135-145); Total Protein 6.5 g/dL (6.5-8.0)
== END 2022-01-09 13:36 | disposition home or self-care (01) ==
LOC: HO.LAB 13:35
PROVIDERS: PCP Internal Medicine; Visit Provider Nurse Practitioner Family
DX: M05.9 Rheumatoid arthritis with rheumatoid factor, unspecified (principal)
CPT/HCPCS: 36415; 80053; 85025; 85652; 86140

== ENCOUNTER 2022-02-05 11:44 | Outpatient (REF) | payer MEDICARE, MEDICAID, SELFPAY ==
--- NOTE | ~2022-02-05 | XR_ITS ---
EXAMINATION: XR KNEE, RIGHT CLINICAL INFORMATION: Osteoarthritis. COMPARISON: 05/15/2019. TECHNIQUE: Four views of the right knee. FINDINGS: There is no evidence of acute fracture or dislocation of the right knee. Right knee joint spaces are maintained. There is minimal spurring undersurface of the patella. There is minimal amount of patella fluid. XR/XR knee RT 4V IMPRESSION: No significant bony abnormality of the right knee identified.
[2022-02-05 11:57] LABS: MANUAL DIFF FLAG NO
[2022-02-05 12:30] LABS: Mean Platelet Volume 13.3 fL (9.4-12.3); Monocytes Percent Auto 5.9 % (2-11); Neutrophils Percent Auto 72.5 % (45-73); SCAN SMEAR FLAG 1
[2022-02-05 12:33] LABS: Basophils Absolute Auto 0.1 X10*3/uL (0.0-0.2); Basophils Percent Auto 0.5 % (0-2); Eosinophils Absolute Auto 0.1 X10*3/uL (0.0-0.4); Eosinophils Percent Auto 0.6 % (0-4); Hematocrit 39.1 % (37.0-47.0); Hemoglobin 12.7 g/dl (12.0-16.0); Imm Gran Abs Auto 0.03 X10*3/uL (0.00-0.03); Imm Gran Pct Auto 0.3 % (0.0-0.4); Lymphocytes Percent Auto 20.2 % (20-40); Mean Corpuscular HGB Conc 32.5 g/dl (31.0-35.0); Mean Corpuscular Volume 86.1 fL (80.0-98.0); Monocytes Absolute Auto 0.6 X10*3/uL (0.1-1.2); Neutrophils Absolute Auto 7.1 x10*3/uL (2.0-8.3); Platelet Count 174 X10*3/uL (160-400); Red Blood Count 4.54 X10*6/uL (4.20-5.50); Red Cell Distribution Width 14.7 % (11.0-16.0); White Blood Count 9.8 X10*3/uL (4.8-10.8)
[2022-02-05 12:35] LABS: PLT ABN DIST 1
[2022-02-05 13:04] LABS: Alanine Aminotransferase 11 U/L (0-31); Albumin Level 4.5 g/dL (3.5-5.0); Alkaline Phosphatase 79 U/L (39-117); Anion Gap 13 (12-20); Aspartate Amino Transferase 17 U/L (5-31); Bilirubin Total 0.5 mg/dL (0.0-1.0); Blood Urea Nitrogen 10 mg/dL (9-16); Calcium 8.8 mg/dL (8.4-10.2); Carbon Dioxide 26 mmol/L (22-29); Chloride 107 mmol/L (96-108); Cholesterol 198 mg/dL; Estimated Glomerular Filt Rate > 60; Glucose Random 89 mg/dL (60-115); HDL Cholesterol 84 mg/dL; LDL Cholesterol Calculated 106 mg/dl; Potassium 4.5 mmol/L (3.3-5.1); Sodium 141 mmol/L (135-145); Total Protein 7.2 g/dL (6.5-8.0); Triglycerides 44 mg/dL
[2022-02-05 13:24] LABS: Thyroid Stimulating Hormone 0.86 uIU/mL (0.32-4.0); Vitamin D 25-OH Total 36.5 ng/mL (>30)
== END 2022-02-05 11:45 | disposition home or self-care (01) ==
LOC: HO.XRAY 11:44
PROVIDERS: PCP Internal Medicine; Visit Provider Internal Medicine
DX: D69.6 Thrombocytopenia, unspecified (principal); M17.11 Unilateral primary osteoarthritis, right knee; E21.0 Primary hyperparathyroidism; G89.29 Other chronic pain; I10 Essential (primary) hypertension; M79.7 Fibromyalgia
CPT/HCPCS: 36415; 73564; 80053; 80061; 82306; 84443; 85025

== ENCOUNTER → 2022-04-12 11:49 | Outpatient (BNVA) | payer MEDICARE, MEDICAID, SELFPAY | PROVIDERS: PCP Internal Medicine; Visit Provider Urology | DX: N20.0 Calculus of kidney (principal) | CPT/HCPCS: 51798; 99202 ==

== ENCOUNTER 2022-05-23 14:37 | Outpatient (REF) | payer MEDICARE, MEDICAID, SELFPAY ==
[2022-05-23 15:30] LABS: Anion Gap 15 (12-20); Blood Urea Nitrogen 12 mg/dL (9-16); Calcium 9.5 mg/dL (8.4-10.2); Carbon Dioxide 26 mmol/L (22-29); Chloride 104 mmol/L (96-108); Estimated Glomerular Filt Rate > 60; Potassium 4.1 mmol/L (3.3-5.1); Sodium 141 mmol/L (135-145)
[2022-05-24 15:57] LABS: Calcium (PTHI) 9.4 mg/dL (8.6-10.4); PTHI 37 pg/mL (16-77)
== END 2022-05-23 14:38 | disposition home or self-care (01) ==
LOC: HO.LAB 14:37
PROVIDERS: PCP Internal Medicine; Visit Provider Internal Medicine Nephrology
DX: I10 Essential (primary) hypertension (principal); N20.0 Calculus of kidney
CPT/HCPCS: 36415; 80051; 82310; 82565; 83970; 84520

== ENCOUNTER → 2022-05-29 12:30 | Outpatient (BNVA) | payer MEDICARE, MEDICAID, SELFPAY | PROVIDERS: PCP Internal Medicine; Referring Provider Internal Medicine; Visit Provider Nurse Practitioner | DX: K59.04 Chronic idiopathic constipation (principal); K21.9 Gastro-esophageal reflux disease without esophagitis; K64.9 Unspecified hemorrhoids | CPT/HCPCS: 99212 ==

== ENCOUNTER 2022-06-20 15:12 | Outpatient (REF) | payer MEDICARE, MEDICAID, SELFPAY ==
--- NOTE | 2022-06-20 10:00 | EMG_ITS ---
Please see scanned EMG / Nerve Conduction Report. MTDD
== END 2022-06-20 15:13 | disposition home or self-care (01) ==
LOC: HO.NEURO 15:12
PROVIDERS: PCP Internal Medicine; Visit Provider Internal Medicine
DX: R20.1 Hypoesthesia of skin (principal)
CPT/HCPCS: 95885; 95913

== ENCOUNTER 2022-08-23 14:24 | Outpatient (REF) | payer MEDICARE, MEDICAID, SELFPAY ==
--- NOTE | ~2022-08-23 | XR_ITS ---
EXAMINATION: XR THORACIC SPINE XR LUMBAR SPINE CLINICAL INFORMATION: Fall, pain. COMPARISON: None TECHNIQUE: 3 views thoracic spine and 3 views lumbar spine. FINDINGS: Thoracic Spine: There is mild levoscoliosis mid dorsal spine centered at T5-T6 disc level. Thoracic kyphosis is maintained normal. No acute fracture, dislocation or subluxation seen. There is mild ventral spondylosis mid dorsal spine. No aggressive lytic or sclerotic process. The paravertebral soft tissues are normal. Lumbar Spine: There is normal lumbar lordosis. Loss of L5-S1 disc height is seen. The rest of the disc heights are normal. There is mild superior endplate deformity L3 vertebra of unknown age. There is moderate right L4-L5 facet joint arthropathy and hypertrophy. No aggressive lytic or sclerotic process seen. The paravertebral soft tissues are normal. The SI joints are symmetric and normal. XR/XR thoracic spine 2V IMPRESSION: Mild thoracic levoscoliosis centered at T5-T6 disc level. Minimal ventral spondylosis mid dorsal spine. Mild degenerative disc changes L5-S1 disc level. Mild superior endplate deformity L3 vertebra.
--- NOTE | ~2022-08-23 | XR_ITS ---
EXAMINATION: XR THORACIC SPINE XR LUMBAR SPINE CLINICAL INFORMATION: Fall, pain. COMPARISON: None TECHNIQUE: 3 views thoracic spine and 3 views lumbar spine. FINDINGS: Thoracic Spine: There is mild levoscoliosis mid dorsal spine centered at T5-T6 disc level. Thoracic kyphosis is maintained normal. No acute fracture, dislocation or subluxation seen. There is mild ventral spondylosis mid dorsal spine. No aggressive lytic or sclerotic process. The paravertebral soft tissues are normal. Lumbar Spine: There is normal lumbar lordosis. Loss of L5-S1 disc height is seen. The rest of the disc heights are normal. There is mild superior endplate deformity L3 vertebra of unknown age. There is moderate right L4-L5 facet joint arthropathy and hypertrophy. No aggressive lytic or sclerotic process seen. The paravertebral soft tissues are normal. The SI joints are symmetric and normal. XR/XR lumbar spine 2-3V IMPRESSION: Mild thoracic levoscoliosis centered at T5-T6 disc level. Minimal ventral spondylosis mid dorsal spine. Mild degenerative disc changes L5-S1 disc level. Mild superior endplate deformity L3 vertebra.
== END 2022-08-23 14:25 | disposition home or self-care (01) ==
LOC: HO.XRAY 14:24
PROVIDERS: PCP Internal Medicine; Visit Provider Internal Medicine
DX: M54.50 Low back pain, unspecified (principal); M54.6 Pain in thoracic spine; Z91.81 History of falling
CPT/HCPCS: 72070; 72100

== ENCOUNTER 2022-09-01 14:36 | Emergency (ER) | payer MEDICARE, MEDICAID, SELFPAY ==
--- NOTE | ~2022-09-01 | CT_ITS ---
EXAMINATION: CT CHEST WITHOUT CONTRAST CLINICAL INFORMATION: Status post fall COMPARISON: None TECHNIQUE: Multidetector volumetric CT imaging of the chest was done. Axial MIP volume rendering provided. Sagittal and coronal reformatted images were obtained. This CT examination was performed using dose optimization techniques as appropriate, variously including the following: *Automated exposure control *Adjustment of mA and/or kV according to patient size (this includes techniques or standardized protocols for targeted exams where dose is matched to indication/reason for exam; i.e. extremities or head) *Use of iterative reconstruction technique DLP: 252 mGy-cm FINDINGS: DURABLE MEDICAL EQUIPMENT TECHNICIAN: Unremarkable LUNGS: The lungs are clear with no evidence of inflammation or nodules. MEDIASTINUM: The mediastinum is normal. CORONARY ARTERY CALCIFICATION: None visualized on this study. PLEURA: There is no pleural effusion. No pleural mass or thickening. AXILLA: No lymphadenopathy. UPPER ABDOMEN: Unremarkable. OSSEOUS STRUCTURES: Unremarkable. CT/CT chest wo IV con IMPRESSION: Unremarkable examination. Fleischner guidelines were followed.
--- NOTE | ~2022-09-01 | CT_ITS ---
EXAMINATION: CT ABDOMEN AND PELVIS WITHOUT CONTRAST CLINICAL INFORMATION: Lumbar back pain COMPARISON: Radiograph of lumbar spine from 08/23/[address] scan of the abdomen from 03/03/2020 TECHNIQUE: Multidetector volumetric imaging was performed from the superior aspect of the liver through the pubic symphysis. Sagittal and coronal reformatted images were obtained on the technologist's workstation. This CT examination was performed using dose optimization techniques as appropriate, variously including the following: *Automated exposure control *Adjustment of mA and/or kV according to patient size (this includes techniques or standardized protocols for targeted exams where dose is matched to indication/reason for exam; i.e. extremities or head) *Use of iterative reconstruction technique DLP: 479 mGy-cm FINDINGS: LUNG BASES: The visualized lung bases are unremarkable. LIVER, GALLBLADDER, AND BILIARY TREE: The liver is normal in size, shape, and attenuation. No focal hepatic lesion or biliary ductal dilatation is present. The gallbladder is unremarkable with no evidence of radiopaque gallstones, gallbladder wall thickening, or obvious pericholecystic inflammatory changes. PANCREAS: Unremarkable. SPLEEN: Unremarkable. ADRENAL GLANDS: Unremarkable. KIDNEYS AND URETERS: The kidneys are normal in size, shape, and attenuation. No hydronephrosis, hydroureter, or calculi seen. No perinephric stranding. BLADDER: Unremarkable. GASTROINTESTINAL TRACT: The small and large bowel are unremarkable. The appendix is unremarkable. ABDOMINAL WALL: No significant hernia is appreciated. LYMPH NODES: Normal. VASCULAR: Unremarkable. PELVIC VISCERA: Unremarkable. OSSEOUS STRUCTURES: There is new since 2020 compression deformities with Schmorl's hernia of L3 and L2 vertebral bodies with mild wedging deformity of L3 there are degenerative changes at the level of L5-S1 with vacuum phenomenon. There is mild levoscoliosis. CT/CT abdomen pelvis wo IV con IMPRESSION: Compression deformities of L2 and L3 vertebral bodies. Degenerative changes at the level of L5-S1. Fleischner guidelines were followed.
--- NOTE | ~2022-09-01 | CT_ITS ---
EXAMINATION: NONCONTRAST HEAD CT NONCONTRAST CERVICAL SPINE CT INDICATION INFORMATION: Pain status post fall COMPARISON: Brain MRI 05/10/2018, MRI cervical spine 04/26/2022 TECHNIQUE: Separate noncontrast CT examinations of the head and cervical spine were performed. Coronal and sagittal images were created for each examination at the technologist workstation. This CT examination was performed using dose optimization techniques as appropriate, variously including the following: *Automated exposure control *Adjustment of mA and/or kV according to patient size (this includes techniques or standardized protocols for targeted exams where dose is matched to indication/reason for exam; i.e. extremities or head) *Use of iterative reconstruction technique DLP: 979 mGy-cm FINDINGS: HEAD: No intra or extra-axial fluid collection, hemorrhage, or mass. No ventriculomegaly. No midline shift or herniation. Basal cisterns are patent. Butler-white matter differentiation is maintained. No territorial encephalomalacia. No significant volume loss. There is no abnormal attenuation within the brain parenchyma. No calvarial fracture or soft tissue abnormality. Mild mucosal thickening and/or foamy secretions in the dependent aspect of the left maxillary antrum. Paranasal sinuses and mastoid air cells are otherwise normally aerated. CERVICAL SPINE: Alignment: Straightening of the normal cervical lordosis. Minimal trace grade 1 anterolisthesis at C2-C3 and C3-C4. No additional subluxation. Vertebra: No acute fracture. No prevertebral soft tissue swelling. Degenerative disc disease: Mild disc degenerative change at C4-C5 and C5-C6 with mild disc height loss, endplate sclerosis and proliferative change. Small posterior disc osteophyte complexes at these levels resulting in mild to moderate central canal narrowing. Left-sided predominant uncovertebral osteoarthritis at C5-C6 Other findings: No cervical lymphadenopathy. Visualized major salivary glands and thyroid gland are unremarkable. Visualized lung apices are clear. Couple of surgical clips noted in the lower neck to the thyroid gland. CT/CT cervical spine wo IV con IMPRESSION: 1. No intracranial hemorrhage or calvarial fracture. 2. No traumatic subluxation or acute cervical spine fracture. 3. Mild degenerative disc disease at C4-C5 and C5-C6, similar to prior MRI.
[2022-09-01 14:42] VITALS: BP 207/92; PULSE 74; RESP 18; TEMP 36.3; O2SAT 98; BMI 26.5
--- NOTE | 2022-09-01 14:43 | ED_ITS ---
HPI - Back Pain/Injury General Chief Complaint: Back Pain/Injury <YUKI Ahn - Last Filed: 09/01/22 14:49> Stated Complaint: back pain <YUKI Ahn Last Filed: 09/01/22 14:49> Time Seen by Provider: 09/01/22 14:56 <YUKI Ahn - Last Filed: 09/01/22 14:49> Source: patient <YKUI Danielle Last Filed: 09/01/22 18:46> Mode of arrival: ambulatory <YUKI Danielle Last Filed: 09/01/22 18:46> Limitations: no limitations <YUKI Danielle Last Filed: 09/01/22 18:46> History of Present Illness HPI Narrative: Patient is a 57 year old assigned female at with a history of chronic back pain presenting to the emergency department today with right sided neck pain and right sided low back pain. Patient states that 2 weeks ago she twisted the wrong way to the left and ever since she has had increased right sided neck and low back pain. Patient states that she usually uses a cane to ambulate and takes opiate pain medication but the her usual pain medication isn't helping. Patient denies any dizziness, lightheadedness, abdominal pain, nausea, vomiting, fever, chills, blurry vision, double vision, loss of vision, chest pain, difficulty breathing, shortness of breath, night sweats, pain with urination, increased urinary frequency, increased urinary urgency, blood in her urine or stool, syncope or a near syncopal episode, recent trauma or falls, bowel incontinence, bladder incontinence, bowel retention, bladder retention, or any other complaints at this time. <YUKI Danielle - Last Filed: 09/01/22 18:46> MD elicited complaint: back pain <YUKI Danielle Last Filed: 09/01/22 18:46> Pertinent past history: prior back pain <YUKI Danielle Last Filed: 09/01/22 18:46> Onset (ago): week(s) (2) <YUKI Danielle Last Filed: 09/01/22 18:46> Timing: intermittent <YUKI Danielle Last Filed: 09/01/22 18:46> Severity: mild <YUKI Danielle - Last Filed: 09/01/22 18:46> Pain scale (0-10): 2 <YUKI Danielle - Last Filed: 09/01/22 18:46> Similar Symptoms Previously: Yes <YUKI Danielle - Last Filed: 09/01/22 18:46> Quality: dull <YUKI Danielle - Last Filed: 09/01/22 18:46> Location: lumbar spine <YUKI Danielle - Last Filed: 09/01/22 18:46> Exacerbating factors: none <YUKI Danielle - Last Filed: 09/01/22 18:46> Relieving factors: none <YUKI Danielle - Last Filed: 09/01/22 18:46> Context: turning/twisting <YUKI Danielle - Last Filed: 09/01/22 18:46> Associated symptoms: denies other symptoms <YUKI Danielle - Last Filed: 09/01/22 18:46> Related Data Home Medications: Home Medications Medication Instructions Recorded Confirmed budesonide 90 mcg/actuation breath 2 inh inhalation BID 06/30/20 04/12/22 activated powder inhaler (Pulmicort Flexhaler) gabapentin 800 mg tablet 800 mg PO BID 06/30/20 04/12/22 loratadine 10 mg capsule 10 mg PO DAILY 06/30/20 04/12/22 lorazepam 1 mg tablet 1 mg PO BEDTIME PRN 06/30/20 04/12/22 metoprolol succinate 100 mg 100 mg PO DAILY 06/30/20 04/12/22 tablet,extended release 24 hr naproxen 500 mg tablet (Naprosyn) 500 mg PO BID 06/30/20 04/12/22 nifedipine 60 mg tablet,extended 60 mg PO DAILY 06/30/20 04/12/22 release valsartan 320 mg tablet 320 mg PO DAILY 06/30/20 04/12/22 zolpidem 10 mg tablet 10 mg PO BEDTIME PRN 06/30/20 04/12/22 oxycodone 10 mg tablet 10 mg PO Q6H PRN severe pain 10/04/20 04/12/22 mirtazapine 15 mg tablet 15 mg PO BEDTIME 05/29/21 04/12/22 pregabalin 150 mg capsule 150 mg PO BEDTIME 05/29/21 04/12/22 albuterol sulfate 90 mcg/actuation 0 mcg inhalation 04/12/22 04/12/22 aerosol inhaler cetirizine 10 mg tablet 10 mg PO DAILY 04/12/22 04/12/22 lidocaine 5 % topical patch 0 patch topical 04/12/22 04/12/22 mirtazapine 30 mg tablet 30 mg PO BEDTIME 04/12/22 04/12/22 mirtazapine 7.5 mg tablet 7.5 mg PO BEDTIME 04/12/22 04/12/22 montelukast 10 mg tablet 10 mg PO DAILY 04/12/22 04/12/22 prednisolone acetate 1 % eye 1 drp ophthalmic (eye) DAILY 04/12/22 04/12/22 drops,suspension pregabalin 300 mg capsule 300 mg PO BID 04/12/22 04/12/22 triamcinolone acetonide 55 mcg 1 spray intranasal DAILY 04/12/22 04/12/22 nasal spray aerosol valacyclovir 1 gram tablet 0 mg PO 04/12/22 04/12/22 valsartan 320 1 tab PO DAILY 04/12/22 04/12/22 mg-hydrochlorothiazide 25 mg tablet Previous Rx's Medication Instructions Recorded tizanidine 6 mg capsule 6 mg PO BEDTIME PRN muscle 10/24/21 spasticity #30 caps methotrexate sodium 2.5 mg tablet 25 mg PO QWEEK #40 tabs 01/09/22 folic acid 1 mg tablet 1 mg PO DAILY #90 tabs 01/16/22 diclofenac sodium 1 % topical gel 2 g topical BID #100 grams 03/06/22 polyethylene glycol 3350 17 gram 17 g PO DAILY #28 ea 05/10/22 oral powder packet hydrocortisone 2.5 % topical cream 1 appl IN BID #60 grams 05/29/22 with perineal applicator linaclotide 290 mcg capsule 290 mcg PO DAILY #30 caps 05/29/22 (Linzess) rabeprazole 20 mg tablet,delayed 20 mg PO BID 30 days #60 tabs 05/29/22 release (AcipHex) simethicone 180 mg capsule 180 mg PO QID #120 caps 05/29/22 dicyclomine 20 mg tablet 20 mg PO QID #120 tabs 05/30/22 <YUKI Ahn Last Filed: 09/01/22 14:49> Allergies/Adverse Reactions: Allergies Allergy/AdvReac Type Severity Reaction Status Date / Time Penicillins [PENICILLINS] Allergy Intermediate RASH/HIVES Verified 05/29/22 12:36 dexamethasone Allergy Eye Verified 09/01/22 14:51 Swelling <YUKI Ahn Last Filed: 09/01/22 14:49> Review of Systems Constitutional: Constitutional: Reports no additional constitutional complaints, Denies chills, Denies fever(s) and Denies night sweats <YUKI Danielle Last Filed: 09/01/22 18:46> Eyes: Eyes: Reports no additional eye complaints, Denies blurry vision, Denies change in vision, Denies diplopia, Denies eye discharge, Denies loss of vision and Denies eye pain <YUKI Danielle Last Filed: 09/01/22 18:46> ENT: Denies dizziness and Reports neck pain <YUKI Danielle Last Filed: 09/01/22 18:46> Cardiovascular: Cardiovascular: Reports no additional cardiovascular complaints, Denies chest pain, Denies lightheadedness, Denies Loss of Consciousness and Denies dyspnea <YUKI Danielle Last Filed: 09/01/22 18:46> Respiratory: Respiratory: Reports no additional respiratory complaints and Denies dyspnea <YUKI Danielle Last Filed: 09/01/22 18:46> Gastrointestinal: Gastrointestinal: Reports no additional gastrointestinal complaints, Denies abdominal pain, Denies melena, Denies hematochezia, Denies change in bowel habits and Denies change in stool character <YUKI Danielle Last Filed: 09/01/22 18:46> Genitourinary: Genitourinary: Denies hematuria, Denies urinary frequency, Denies dysuria, Denies urinary incontinence, Denies urinary hesitancy and Denies urinary urgency <YUKI Danielle Last Filed: 09/01/22 18:46> Musculoskeletal: Musculoskeletal: Reports no additional musculoskeletal complaints, Reports back pain, Reports neck pain, Denies numbness and Denies tingling <YUKI Danielle Last Filed: 09/01/22 18:46> Neurologic: Denies dizziness, Denies loss of vision, Denies numbness and Denies tingling <YUKI Danielle - Last Filed: 09/01/22 18:46> Psychiatric: Psychiatric: Reports no additional psychiatric complaints <YUKI Danielle - Last Filed: 09/01/22 18:46> Endocrine: Endocrine: Reports no additional endocrine complaints <YUKI Danielle - Last Filed: 09/01/22 18:46> Hematologic/Lymphatic: Hematologic/Lymphatic: Reports no additional hematologic/lymphatic complaints <YUKI Danielle - Last Filed: 09/01/22 18:46> Allergic/Immunologic: Allergic/Immunologic: Reports no additional allergic/immunologic complaints <YUKI Danielle - Last Filed: 09/01/22 18:46> [facility] Past Medical History Attestation statement: The following information was validated with the patient. <YUKI Danielle - Last Filed: 09/01/22 18:46> Source: old records reviewed and nursing notes reviewed <YUKI Danielle - Last Filed: 09/01/22 18:46> Medical History: Medical History Hx of hemorrhoids Seropositive rheumatoid arthritis Urinary urgency <YUKI Ahn - Last Filed: 09/01/22 14:49> Surgical History: Surgical History History of esophagogastroduodenoscopy (EGD) Hx of colonoscopy <YUKI Ahn - Last Filed: 09/01/22 14:49> Family History Family History: Family History Father Cancer Mother Colon cancer HTN (hypertension) Diabetes Breast cancer Brother Lupus HTN (hypertension) Kidney transplanted Sister HTN (hypertension) Cancer Liver transplanted Other FH: cancer FH: mental illness <YUKI Ahn - Last Filed: 09/01/22 14:49> Social History Social History: Social History Household Members: Spouse Housing: House Alcohol intake: current Alcohol intake frequency: holidays/special occasions only Cigarettes Per Day: 10 Years Smoked: 43 Advance Directives: No Advance Directives Information Provided: No <YUKI Ahn Last Filed: 09/01/22 14:49> Physical Exam Vital Signs: Vital Signs: Last Vital Signs Temp 97.4 F 09/01/22 14:42 Pulse 65 09/01/22 17:18 Resp 18 09/01/22 14:42 BP 144/82 H 09/01/22 17:18 Pulse Ox 94 09/01/22 17:18 O2 Del Method 09/01/22 17:18 BMI result Body Mass Index 26.5 <YUKI Ahn - Last Filed: 09/01/22 14:49> Vital Signs: Last Vital Signs Temp 97.4 F 09/01/22 14:42 Pulse 65 09/01/22 17:18 Resp 18 09/01/22 14:42 BP 144/82 H 09/01/22 17:18 Pulse Ox 94 09/01/22 17:18 O2 Del Method 09/01/22 17:18 BMI result Body Mass Index 26.5 <YUKI Danielle - Last Filed: 09/01/22 18:46> Const: General: cooperative, no acute distress, alert and awake <YUKI Danielle - Last Filed: 09/01/22 18:46> Nutritional Appearance: well nourished <YUKI Danielle - Last Filed: 09/01/22 18:46> Orientation/consciousness: patient oriented x3 <YUKI Danielle Last Filed: 09/01/22 18:46> Limitations: no limitations <YUKI Danielle Last Filed: 09/01/22 18:46> HEENT: Head: Yes normal to inspection and Yes atraumatic <YUKI Danielle - Last Filed: 09/01/22 18:46> Ears: hearing grossly normal bilaterally and external ears normal <YUKI Danielle Last Filed: 09/01/22 18:46> General nose exam: Normal external nose present, no nasal discharge noted and no epistaxis <YUKI Danielle Last Filed: 09/01/22 18:46> Face and sinus: Yes normal facial exam, No abrasion and No laceration <YUKI Danielle Last Filed: 09/01/22 18:46> Mouth: Normal oral and palatal mucosa present, no drooling and no muffled voice <Teetee Patel NH - Last Filed: 09/01/22 18:46> Eyes: General: appearance normal, both eyes and all related structures <Teetee Patel NH - Last Filed: 09/01/22 18:46> Periorbital: periorbital findings normal <Teetee Patel NH - Last Filed: 09/01/22 18:46> Eyelids: Yes eyelids normal <Teetee Patel NH - Last Filed: 09/01/22 18:46> Conjunctivae: conjunctivae normal <Teetee Patel NH - Last Filed: 06/13 18:46> Pupils: Equal, round and reactive pupils present <Teetee Patel NH - Last Filed: 09/01/22 18:46> EOM: EOMs intact bilaterally <Teetee Patel NH - Last Filed: 09/01/22 18:46> Neck: Neck: Yes normal visual inspection, Yes full ROM and Yes no lymphadenopathy <Teetee Patel NH - Last Filed: 09/01/22 18:46> Chest: Chest palpation & inspection: normal inspection of the chest <Teetee Patel NH - Last Filed: 09/01/22 18:46> Resp: Effort & Inspection: normal respiratory effort and able to speak in complete sentences <Teetee Patel NH - Last Filed: 09/01/22 18:46> Cardio: Rate: regular rate <Teetee Patel NH - Last Filed: 09/01/22 18:46> Rhythm: regular rhythm <Teetee Patel NH - Last Filed: 09/01/22 18:46> GI: Inspection: Yes normal to inspection <Teetee Cabrerapadmini NH - Last Filed: 09/01/22 18:46> Palpation (GI): Soft to palpation, not firm, nontender, no guarding and not rigid <Teetee Patel NH - Last Filed: 09/01/22 18:46> : General: Yes no CVA tenderness <Teetee Cabrerapadmini NH - Last Filed: 09/01/22 18:46> Back/Spine/Pelvis: Back: no CVA tenderness <YUKI Danielle - Last Filed: 09/01/22 18:46> Cervical Spine: normal cervical lordosis and cervical ROM normal <YUKI Danielle - Last Filed: 09/01/22 18:46> Thoracic/Lumbar Spine: thoracic and lumbar spine normal to inspection and thoraco-lumbar ROM normal <YUKI Danielle - Last Filed: 09/01/22 18:46> Neuro: General: patient oriented x3 and moves all extremities <YUKI Danielle - Last Filed: 09/01/22 18:46> Cranial nerves: Yes Equal, round and reactive pupils present <YUKI Danielle - Last Filed: 09/01/22 18:46> Cognition (Neuro): normal cognition <YUKI Danielle - Last Filed: 06/13 18:46> Motor exam (neuro): 5/5 motor strength present throughout <YUKI Danielle - Last Filed: 09/01/22 18:46> Sensory Exam: Normal double simultaneous stimulation for sensation <Teetee Patel NH - Last Filed: 09/01/22 18:46> Coordination: [id number] test normal <YUKI Danielle - Last Filed: 09/01/22 18:46> Extrem: General: Yes normal to inspection, Yes full ROM and Yes capillary refill normal <YUKI Danielle - Last Filed: 09/01/22 18:46> Psych: Appearance: grossly normal <YUKI Danielle - Last Filed: 09/01/22 18:46> Mental Status: mental status grossly normal <YUKI Danielle - Last Filed: 09/01/22 18:46> Affect: normal affect <YUKI Danielle - Last Filed: 09/01/22 18:46> Attitude: cooperative <YUKI Danielle - Last Filed: 09/01/22 18:46> Thought process: Normal thought process present <YUKI Danielle - Last Filed: 09/01/22 18:46> Thought content: Normal thought content present <YUKI Danielle - Last Filed: 09/01/22 18:46> Insight: Good insight present (Psych) <YUKI Danielle - Last Filed: 09/01/22 18:46> Course Course Course Narrative: HILL-14:45PM 57yoF with a PMHX of HTN and rheumatoid arthritis who is presenting to the ED with complaints of right sided neck pain/swelling radiating down to her lower back /entire right side including arm and leg. This has been present for the past 2 weeks. Reports that she was seen by her primary care provider recently and had some x-rays which were negative for any acute processes although patient not having worsening pain. Denies any fevers, rashes, recent falls or trauma. Her blood pressure is noted to be elevated in triage although patient reports she just took her blood pressure medication 1 hour to prior to arrival when she has anxiety when she is in the doctor's office. On exam she has tenderness to the right paracervical musculature. No mid cervical tenderness of puffs or deformities noted. Limited range of motion due to pain. No meningeal signs are noted. No rashes are noted signs of trauma. When I reviewed the patient's Mass Pat she just filled 10 mg oxycodone on 08/11/2021 for a 20 day course along with gabapentin prescription. Plan: Patient to be seen in emergency minor care and taken decided the patient needs imaging or not. It appears muscular skeletal to me in nature. She did not fall. Therefore at this time I do not believe she needs a CT scan. <YUKI Ahn - Last Filed: 09/01/22 14:49> Medications Administered Discontinued Medications Generic Name Dose Route Start Last Admin Trade Name Freq PRN Reason Stop Dose Admin Cyclobenzaprine HCl 5 mg 09/01/22 16:40 09/01/22 16:54 Cyclobenzaprine Hcl 5 Mg Tablet PO 09/01/22 16:41 5 mg ONCE ONE Administration Hydromorphone HCl 1 mg 09/01/22 16:40 09/01/22 16:54 Hydromorphone Hcl 1 Mg/Ml Syringe IM 09/01/22 16:41 1 mg ONCE ONE Administration Protocol <YUKI Ahn - Last Filed: 09/01/22 14:49> Medications Administered Discontinued Medications Generic Name Dose Route Start Last Admin Trade Name Freq PRN Reason Stop Dose Admin Cyclobenzaprine HCl 5 mg 09/01/22 16:40 09/01/22 16:54 Cyclobenzaprine Hcl 5 Mg Tablet PO 09/01/22 16:41 5 mg ONCE ONE Administration Hydromorphone HCl 1 mg 09/01/22 16:40 09/01/22 16:54 Hydromorphone Hcl 1 Mg/Ml Syringe IM 09/01/22 16:41 1 mg ONCE ONE Administration Protocol <YUKI Danielle - Last Filed: 09/01/22 18:46> Medical Decision Making Medical Decision Making MDM Narrative: Patient is a 57 year old assigned female at with a history of chronic back pain presenting to the emergency department today with right sided neck and low back pain. Patient's physical exam was unremarkable. Patient's blood work was unremarkable. Patient's head, c-spine, chest, and abdomen/pelvis CTs showed no acute process. However, patient's abdomen/pelvis CT did show some compression deformity in the lumbar spine. This is not consistent with the patient's reported context of when the pain started and I suspect it is chronic in nature. Patient's CT of the cervical spine did show some degenerative disc changes which is consistent with the patient's pain. I explained my physical exam findings as well as all test results to the patient. I answered all questions asked by the patient. Patient received IM Dilaudid and PO Flexeril which she stated helped her symptoms significantly. I stressed the importance of the patient taking her medication as prescribed. I stressed the importance of the patient following up with her primary care provider. I stressed the importance of the patient returning to the emergency department immediately if her symptoms were to worsen or if she were to develop any dizziness, shortness of breath, difficulty breathing, chest pain, blurry vision, loss of vision, nausea, vomiting, abdominal pain, fever, chills, back pain, or any other complaints. Patient verbalized agreement and understanding with this treatment plan and discharge. <YUKI Danielle - Last Filed: 09/01/22 18:46> Differential Diagnosis Differential Diagnoses: The differential diagnosis associated with the presentation includes <YUKI Danielle - Last Filed: 09/01/22 18:46> acute on chronic back pain <YUKI Danielle Last Filed: 09/01/22 18:46> Lab Data MDM Lab Attestation statement: I reviewed the patient's lab results. <YUKI Danielle Last Filed: 09/01/22 18:46> Result Diagrams: 09/01/22 16:26 09/01/22 16:26 <YUKI Ahn - Last Filed: 09/01/22 14:49> Labs: Lab Results 09/01/22 09/01/22 Range/Units 16:26 16:26 WBC 8.8 (4.8-10.8) X10*3/uL RBC 4.70 (4.20-5.50) X10*6/uL Hgb 13.4 (12.0-16.0) g/dl Hct 40.6 (37.0-47.0) % MCV 86.4 (80.0-98.0) fL MCH 28.5 (27.0-33.0) pg MCHC 33.0 (31.0-35.0) g/dl RDW 14.9 (11.0-16.0) % Plt Count 142 L (160-400) X10*3/uL MPV 12.6 H (9.4-12.3) fL Immature Gran % (Auto) Cancelled Neut % (Auto) Cancelled Lymph % (Auto) Cancelled [place] % (Auto) Cancelled Eos % (Auto) Cancelled Baso % (Auto) Cancelled Lymph # (Auto) Cancelled [place] # (Auto) Cancelled Eos # (Auto) Cancelled Baso # (Auto) Cancelled Abs Immat Gran (auto) Cancelled Absolute Neuts (auto) Cancelled Absolute Nucleated RBC 0.000 (0.0-0.012) X10*3/uL Nucleated RBC % (auto) 0.0 (0.0-0.2) /100WBC Neutrophils % (Manual) 61 (45-73) % Band Neutrophils % 0 L (3-5) % Lymphocytes % (Manual) 27 (20-40) % Monocytes % (Manual) 8 (2-11) % Eosinophils % (Manual) 4 (0-4) % Abs Neuts (Manual) 5.4 (2.0-8.3) X10*3/uL Lymphocytes # (Manual) 2.4 (1.2-4.9) X10*3/uL Monocytes # (Manual) 0.7 (0.1-1.2) X10*3/uL Eosinophils # (Manual) 0.4 (0.0-0.4) X10*3/uL Platelet Estimate NORMAL (NORMAL) Plt Morphology Comment NORMAL RBC Morphology NORMAL Sodium 142 (135-145) mmol/L Potassium 4.5 (3.3-5.1) mmol/L Chloride 107 (96-108) mmol/L Carbon Dioxide 27 (22-29) mmol/L Anion Gap 13 (12-20) BUN 16 (9-16) mg/dL Creatinine 0.77 (0.5-1.4) mg/dL Estim Creat Clear Calc 73.7 Estimated GFR > 60 Random Glucose 88 (60-115) mg/dL Calcium 9.5 (8.4-10.2) mg/dL Total Bilirubin 0.5 (0.0-1.0) mg/dL AST 19 (5-31) U/L ALT 18 (0-31) U/L Alkaline Phosphatase 154 H (39-117) U/L Total Protein 7.5 (6.5-8.0) g/dL Albumin 4.7 (3.5-5.0) g/dL <YUKI Ahn - Last Filed: 09/01/22 14:49> Lab Results 09/01/22 09/01/22 Range/Units 16:26 16:26 WBC 8.8 (4.8-10.8) X10*3/uL RBC 4.70 (4.20-5.50) X10*6/uL Hgb 13.4 (12.0-16.0) g/dl Hct 40.6 (37.0-47.0) % MCV 86.4 (80.0-98.0) fL MCH 28.5 (27.0-33.0) pg MCHC 33.0 (31.0-35.0) g/dl RDW 14.9 (11.0-16.0) % Plt Count 142 L (160-400) X10*3/uL MPV 12.6 H (9.4-12.3) fL Immature Gran % (Auto) Cancelled Neut % (Auto) Cancelled Lymph % (Auto) Cancelled [place] % (Auto) Cancelled Eos % (Auto) Cancelled Baso % (Auto) Cancelled Lymph # (Auto) Cancelled [place] # (Auto) Cancelled Eos # (Auto) Cancelled Baso # (Auto) Cancelled Abs Immat Gran (auto) Cancelled Absolute Neuts (auto) Cancelled Absolute Nucleated RBC 0.000 (0.0-0.012) X10*3/uL Nucleated RBC % (auto) 0.0 (0.0-0.2) /100WBC Neutrophils % (Manual) 61 (45-73) % Band Neutrophils % 0 L (3-5) % Lymphocytes % (Manual) 27 (20-40) % Monocytes % (Manual) 8 (2-11) % Eosinophils % (Manual) 4 (0-4) % Abs Neuts (Manual) 5.4 (2.0-8.3) X10*3/uL Lymphocytes # (Manual) 2.4 (1.2-4.9) X10*3/uL Monocytes # (Manual) 0.7 (0.1-1.2) X10*3/uL Eosinophils # (Manual) 0.4 (0.0-0.4) X10*3/uL Platelet Estimate NORMAL (NORMAL) Plt Morphology Comment NORMAL RBC Morphology NORMAL Sodium 142 (135-145) mmol/L Potassium 4.5 (3.3-5.1) mmol/L Chloride 107 (96-108) mmol/L Carbon Dioxide 27 (22-29) mmol/L Anion Gap 13 (12-20) BUN 16 (9-16) mg/dL Creatinine 0.77 (0.5-1.4) mg/dL Estim Creat Clear Calc 73.7 Estimated GFR > 60 Random Glucose 88 (60-115) mg/dL Calcium 9.5 (8.4-10.2) mg/dL Total Bilirubin 0.5 (0.0-1.0) mg/dL AST 19 (5-31) U/L ALT 18 (0-31) U/L Alkaline Phosphatase 154 H (39-117) U/L Total Protein 7.5 (6.5-8.0) g/dL Albumin 4.7 (3.5-5.0) g/dL <YUKI Danielle - Last Filed: 09/01/22 18:46> Radiology Impression Radiologist Impression: My interpretation is in agreement with the radiologist's impression of these imaging studies. EXAMINATION: CT ABDOMEN AND PELVIS WITHOUT CONTRAST? CLINICAL INFORMATION: Lumbar back pain? COMPARISON: Radiograph of lumbar spine from 08/23/[address] scan of the abdomen from 03/03/2020 TECHNIQUE: Multidetector volumetric imaging was performed from the superior aspect of the liver through the pubic symphysis. Sagittal and coronal reformatted images were obtained on the technologist's workstation.? This CT examination was performed using dose optimization techniques as appropriate, variously including the following: *Automated exposure control *Adjustment of mA and/or kV according to patient size (this includes techniques or standardized protocols for targeted exams where dose is matched to indication/reason for exam; i.e. extremities or head) *Use of iterative reconstruction technique DLP: 479 mGy-cm FINDINGS: LUNG BASES: The visualized lung bases are unremarkable.? LIVER, GALLBLADDER, AND BILIARY TREE: The liver is normal in size, shape, and attenuation. No focal hepatic lesion or biliary ductal dilatation is present. The gallbladder is unremarkable with no evidence of radiopaque gallstones, gallbladder wall thickening, or obvious pericholecystic inflammatory changes.? PANCREAS: Unremarkable.? SPLEEN: Unremarkable.? ADRENAL GLANDS: Unremarkable.? KIDNEYS AND URETERS: The kidneys are normal in size, shape, and attenuation. No hydronephrosis, hydroureter, or calculi seen. No perinephric stranding. ? BLADDER: Unremarkable.? GASTROINTESTINAL TRACT: The small and large bowel are unremarkable. The appendix is unremarkable.? ABDOMINAL WALL: No significant hernia is appreciated.? LYMPH NODES: Normal. VASCULAR: Unremarkable. PELVIC VISCERA: Unremarkable.? OSSEOUS STRUCTURES: There is new since 2020 compression deformities with Schmorl's hernia of L3 and L2 vertebral bodies with mild wedging deformity of L3 there are degenerative changes at the level of L5-S1 with vacuum phenomenon. There is mild levoscoliosis.? CT/CT abdomen pelvis wo IV con IMPRESSION: Compression deformities of L2 and L3 vertebral bodies. Degenerative changes at the level of L5-S1. ? Fleischner guidelines were followed. Dictated By: Yann Solis MD Signed By: Electronically signed by Yann Solis MD 09/01/22 1718 -- EXAMINATION: CT CHEST WITHOUT CONTRAST CLINICAL INFORMATION: Status post fall? COMPARISON: None? TECHNIQUE: Multidetector volumetric CT imaging of the chest was done. Axial MIP volume rendering provided. Sagittal and coronal reformatted images were obtained.? This CT examination was performed using dose optimization techniques as appropriate, variously including the following: *Automated exposure control *Adjustment of mA and/or kV according to patient size (this includes techniques or standardized protocols for targeted exams where dose is matched to indication/reason for exam; i.e. extremities or head) *Use of iterative reconstruction technique DLP: 252 mGy-cm FINDINGS: PHARMACEUTICAL COMPOUNDING SUPERVISOR: Unremarkable LUNGS: The lungs are clear with no evidence of inflammation or nodules. ? MEDIASTINUM: The mediastinum is normal.? CORONARY ARTERY CALCIFICATION: None visualized on this study. PLEURA: There is no pleural effusion. No pleural mass or thickening.? AXILLA: No lymphadenopathy.? UPPER ABDOMEN: Unremarkable.? OSSEOUS STRUCTURES: Unremarkable.? CT/CT chest wo IV con IMPRESSION: Unremarkable examination.? ? Fleischner guidelines were followed. Dictated By: Yann Solis MD Signed By: Electronically signed by Yann Solis MD 09/01/22 1634 EXAMINATION: NONCONTRAST HEAD CT NONCONTRAST CERVICAL SPINE CT INDICATION INFORMATION: Pain status post fall COMPARISON: Brain MRI 05/10/2018, MRI cervical spine 04/26/2022 TECHNIQUE: Separate noncontrast CT examinations of the head and cervical spine were performed. Coronal and sagittal images were created for each examination at the technologist workstation. This CT examination was performed using dose optimization techniques as appropriate, variously including the following: *Automated exposure control *Adjustment of mA and/or kV according to patient size (this includes techniques or standardized protocols for targeted exams where dose is matched to indication/reason for exam; i.e. extremities or head) *Use of iterative reconstruction technique DLP: 979 mGy-cm FINDINGS: HEAD: No intra or extra-axial fluid collection, hemorrhage, or mass. No ventriculomegaly. No midline shift or herniation. Basal cisterns are patent. Butelr-white matter differentiation is maintained. No territorial encephalomalacia. ?No significant volume loss. There is no abnormal attenuation within the brain parenchyma. No calvarial fracture or soft tissue abnormality. ?Mild mucosal thickening and/or foamy secretions in the dependent aspect of the left maxillary antrum. Paranasal sinuses and mastoid air cells are otherwise normally aerated. CERVICAL SPINE: Alignment: Straightening of the normal cervical lordosis. Minimal trace grade 1 anterolisthesis at C2-C3 and C3-C4. No additional subluxation. Vertebra: No acute fracture. No prevertebral soft tissue swelling. Degenerative disc disease: Mild disc degenerative change at C4-C5 and C5-C6 with mild disc height loss, endplate sclerosis and proliferative change. Small posterior disc osteophyte complexes at these levels resulting in mild to moderate central canal narrowing. Left-sided predominant uncovertebral osteoarthritis at C5-C6 Other findings: No cervical lymphadenopathy. Visualized major salivary glands and thyroid gland are unremarkable. Visualized lung apices are clear. Couple of surgical clips noted in the lower neck to the thyroid gland. CT/CT head/brain wo IV con IMPRESSION: 1.? No intracranial hemorrhage or calvarial fracture. 2.? No traumatic subluxation or acute cervical spine fracture. 3.? Mild degenerative disc disease at C4-C5 and C5-C6, similar to prior MRI. Dictated By: Godwin Dawson Signed By: Electronically signed by Godwin?Samir 09/01/22 1659 <YUKI Danielle - Last Filed: 09/01/22 18:46> Discharge Plan Discharge Clinical Impression: Low back pain <YUKI Ahn - Last Filed: 09/01/22 14:49> Patient Disposition: Home, Self-Care <YUKI Ahn - Last Filed: 09/01/22 14:49> Instructions: Back Pain (ED) <YUKI Ahn - Last Filed: 09/01/22 14:49> Additional Instructions: Follow up with your primary care provider and your pain specialist. Return to the emergency department immediately if your symptoms worsen or if you develop any dizziness, shortness of breath, difficulty breathing, chest pain, blurry vision, loss of vision, nausea, vomiting, abdominal pain, fever, chills, back pain, or any other complaints. <YUKI Ahn - Last Filed: 09/01/22 14:49> Prescriptions: No Action tizanidine 6 mg capsule 6 mg PO BEDTIME PRN (Reason: muscle spasticity) Qty: 30 5RF methotrexate sodium 2.5 mg tablet 25 mg PO QWEEK Qty: 40 2RF Rx Instructions: 10 tabs once weekly folic acid 1 mg tablet 1 mg PO DAILY Qty: 90 1RF diclofenac sodium 1 % gel 2 g topical BID Qty: 100 3RF Rx Instructions: apply 2gram to affected area twice daily as needed. Do not use with oral naproxen. polyethylene glycol 3350 17 gram powder in packet 17 g PO DAILY Qty: 28 0RF dicyclomine 20 mg tablet 20 mg PO QID Qty: 120 0RF oxycodone 10 mg tablet 10 mg PO Q6H PRN (Reason: severe pain) nifedipine 60 mg tablet extended release 60 mg PO DAILY valsartan 320 mg tablet 320 mg PO DAILY Pulmicort Flexhaler 90 mcg/actuation aerosol powdr breath activated 2 inh inhalation BID metoprolol succinate 100 mg tablet extended release 24 hr 100 mg PO DAILY zolpidem 10 mg tablet 10 mg PO BEDTIME PRN lorazepam 1 mg tablet 1 mg PO BEDTIME PRN gabapentin 800 mg tablet 800 mg PO BID loratadine 10 mg capsule 10 mg PO DAILY naproxen [Naprosyn] 500 mg tablet 500 mg PO BID mirtazapine 15 mg tablet 15 mg PO BEDTIME pregabalin 150 mg capsule 150 mg PO BEDTIME albuterol sulfate 90 mcg/actuation HFA aerosol inhaler 0 mcg inhalation mirtazapine 7.5 mg tablet 7.5 mg PO BEDTIME mirtazapine 30 mg tablet 30 mg PO BEDTIME pregabalin 300 mg capsule 300 mg PO BID montelukast 10 mg tablet 10 mg PO DAILY lidocaine 5 % adhesive patch,medicated 0 patch topical triamcinolone acetonide 55 mcg aerosol,spray 1 spray intranasal DAILY prednisolone acetate 1 % drops,suspension 1 drp ophthalmic (eye) DAILY valacyclovir 1 gram tablet 0 mg PO cetirizine 10 mg tablet 10 mg PO DAILY valsartan-hydrochlorothiazide 320-25 mg tablet 1 tab PO DAILY simethicone 180 mg capsule 180 mg PO QID Qty: 120 6RF rabeprazole [AcipHex] 20 mg tablet,delayed release (DR/EC) 20 mg PO BID 30 Days Qty: 60 6RF hydrocortisone 2.5 % cream with perineal applicator 1 appl IN BID Qty: 60 6RF Linzess 290 mcg capsule 290 mcg PO DAILY Qty: 30 6RF <YUKI Ahn - Last Filed: 09/01/22 14:49> Referrals: Jackie Watt MD [Primary Care Provider] - <YUKI Ahn - Last Filed: 09/01/22 14:49> Interventions: ED Discharge Assessment Last Done: 09/01/22 17:40 <YUKI Ahn - Last Filed: 09/01/22 14:49> Discharge Date/Time: 09/01/22 17:40 <YUKI Ahn - Last Filed: 09/01/22 14:49> Print Language: Wallisian <YUKI Ahn - Last Filed: 09/01/22 14:49>
[2022-09-01 16:37] LABS: Hematocrit 40.6 % (37.0-47.0); Hemoglobin 13.4 g/dl (12.0-16.0); Mean Corpuscular Hemoglobin 28.5 pg (27.0-33.0); Mean Corpuscular Volume 86.4 fL (80.0-98.0); Mean Platelet Volume 12.6 fL (9.4-12.3); Platelet Count 142 X10*3/uL (160-400); Red Cell Distribution Width 14.9 % (11.0-16.0)
[2022-09-01 16:38] LABS: WBC ABN SCTR FOR CBC 1
[2022-09-01 16:51] LABS: Alanine Aminotransferase 18 U/L (0-31); Albumin Level 4.7 g/dL (3.5-5.0); Alkaline Phosphatase 154 U/L (39-117); Anion Gap 13 (12-20); Aspartate Amino Transferase 19 U/L (5-31); Bilirubin Total 0.5 mg/dL (0.0-1.0); Blood Urea Nitrogen 16 mg/dL (9-16); Calcium 9.5 mg/dL (8.4-10.2); Carbon Dioxide 27 mmol/L (22-29); Chloride 107 mmol/L (96-108); Creatinine Clr Calc Pharmacy 73.7; Estimated Glomerular Filt Rate > 60; Glucose Random 88 mg/dL (60-115); Potassium 4.5 mmol/L (3.3-5.1); Sodium 142 mmol/L (135-145); Total Protein 7.5 g/dL (6.5-8.0)
[2022-09-01] MEDS: HYDROmorphone HCl 1 MG/ML SYRINGE IM (16:54)
[2022-09-01] MEDS: Cyclobenzaprine HCl 5 MG TABLET PO (16:54)
[2022-09-01 17:03] LABS: Eosinophils Percent Manual 4 % (0-4); Lymphocytes Percent Manual 27 % (20-40); Monocytes Percent Manual 8 % (2-11); Neutrophils Percent Manual 61 % (45-73)
[2022-09-01 17:04] LABS: Band Neutrophils Percent 0 % (3-5); Platelet Estimate NORMAL (NORMAL); Platelet Morphology Comment NORMAL; RBC Morphology NORMAL
[2022-09-01 17:05] LABS: Eosinophils Absolute Manual 0.4 X10*3/uL (0.0-0.4); Lymphocytes Absolute Manual 2.4 X10*3/uL (1.2-4.9); Monocytes Absolute Manual 0.7 X10*3/uL (0.1-1.2); Neutrophils Absolute Manual 5.4 X10*3/uL (2.0-8.3); White Blood Count 8.8 X10*3/uL (4.8-10.8)
[2022-09-01 17:18] VITALS: BP 144/82; PULSE 65; O2SAT 94
== END 2022-09-01 17:40 | disposition home or self-care (01) ==
PROVIDERS: Physician Assistant Medical; Emergency Provider Student in an Organized Health Care Education/Training Program; PCP Internal Medicine
DX: M54.50 Low back pain, unspecified (principal); M05.9 Rheumatoid arthritis with rheumatoid factor, unspecified; Z87.891 Personal history of nicotine dependence; Z79.891 Long term (current) use of opiate analgesic; Z79.899 Other long term (current) drug therapy
CPT/HCPCS: 36415; 70450; 71250; 72125; 74176; 80053; 85007; 85027; 96372; 99284; J1170

== ENCOUNTER 2022-09-19 13:52 | Outpatient (REF) | payer MEDICARE, MEDICAID, SELFPAY ==
--- NOTE | ~2022-09-19 | US_ITS ---
EXAMINATION: US RETROPERITONEAL LIMITED (RENAL ONLY) CLINICAL INFORMATION: Calculus of kidney. COMPARISON: CT abdomen and pelvis 09/01/2022. Ultrasound renal 09/12/2021. TECHNIQUE: Real-time imaging of the kidneys. FINDINGS: RIGHT KIDNEY: 10.0 x 3.5 x 5.2 cm (SAG x AP x TRV). The kidney is normal in size, contour, and echogenicity. Renal cortical thickness is normal. No calculi or focal parenchymal lesions. No hydronephrosis. There is calcification in the upper pole with no twinkle artifact seen. It measures 0.5 x 0.3 cm. LEFT KIDNEY: 10.3 x 3.7 x 5.0 cm (SAG x AP x TRV). The kidney is normal in size, contour, and echogenicity. Renal cortical thickness is normal. No focal parenchymal lesions or hydronephrosis. There is echogenic stone in midpole measuring 0.4 x 0.1 cm and lower pole measuring 0.3 x 0.3 cm. US/US renal BI IMPRESSION: 1. Obstructive calculi mid and lower pole left kidney. No caliectasis. Few echogenic calcification upper pole right kidney with no twinkle artifact. 2. There is no caliectasis or hydronephrosis.
== END 2022-09-19 13:53 | disposition home or self-care (01) ==
LOC: HO.US 13:52
PROVIDERS: PCP Internal Medicine; Visit Provider Urology
DX: N20.0 Calculus of kidney (principal)
CPT/HCPCS: 76775

== ENCOUNTER 2022-10-25 13:42 | Outpatient (REF) | payer MEDICARE, MEDICAID, SELFPAY ==
[2022-10-25 13:53] LABS: MANUAL DIFF FLAG NO
[2022-10-25 14:32] LABS: Basophils Absolute Auto 0.1 X10*3/uL (0.0-0.2); Basophils Percent Auto 1.1 % (0-2); Eosinophils Absolute Auto 0.2 X10*3/uL (0.0-0.4); Eosinophils Percent Auto 2.1 % (0-4); Hematocrit 41.9 % (37.0-47.0); Hemoglobin 13.6 g/dl (12.0-16.0); Imm Gran Abs Auto 0.02 X10*3/uL (0.00-0.03); Imm Gran Pct Auto 0.3 % (0.0-0.4); Lymphocytes Absolute Auto 1.8 X10*3/uL (1.2-4.9); Mean Corpuscular HGB Conc 32.5 g/dl (31.0-35.0); Mean Corpuscular Hemoglobin 28.2 pg (27.0-33.0); Mean Corpuscular Volume 86.9 fL (80.0-98.0); Mean Platelet Volume 13.7 fL (9.4-12.3); Monocytes Absolute Auto 0.5 X10*3/uL (0.1-1.2); Monocytes Percent Auto 6.4 % (2-11); Neutrophils Absolute Auto 4.5 x10*3/uL (2.0-8.3); Neutrophils Percent Auto 64.1 % (45-73); Platelet Count 166 X10*3/uL (160-400); Red Blood Count 4.82 X10*6/uL (4.20-5.50); Red Cell Distribution Width 14.2 % (11.0-16.0)
[2022-10-25 14:33] LABS: Alanine Aminotransferase 14 U/L (0-31); Albumin Level 4.6 g/dL (3.5-5.0); Alkaline Phosphatase 96 U/L (39-117); Anion Gap 14 (12-20); Aspartate Amino Transferase 21 U/L (5-31); Bilirubin Total 0.7 mg/dL (0.0-1.0); Blood Urea Nitrogen 8 mg/dL (9-16); Calcium 9.1 mg/dL (8.4-10.2); Carbon Dioxide 27 mmol/L (22-29); Chloride 108 mmol/L (96-108); Estimated Glomerular Filt Rate > 60; Glucose Random 111 mg/dL (60-115); Potassium 4.2 mmol/L (3.3-5.1); Sodium 145 mmol/L (135-145); Total Protein 7.3 g/dL (6.5-8.0)
[2022-10-25 14:48] LABS: Vitamin D 25-OH Total 47.5 ng/mL (>30)
[2022-10-29 21:49] LABS: PTHI 34 pg/mL (16-77)
== END 2022-10-25 13:43 | disposition home or self-care (01) ==
LOC: HO.LAB 13:42
PROVIDERS: PCP Internal Medicine; Visit Provider Internal Medicine
DX: I10 Essential (primary) hypertension (principal); M06.9 Rheumatoid arthritis, unspecified; M65.841 Other synovitis and tenosynovitis, right hand; M80.80XD Other osteoporosis with current pathological fracture, unspecified site, subsequent encounter for fracture with routine healing
CPT/HCPCS: 36415; 80053; 82306; 83970; 85025

== ENCOUNTER → 2022-10-26 10:42 | Outpatient (BNVA) | payer MEDICARE, MEDICAID, SELFPAY | PROVIDERS: PCP Internal Medicine; Visit Provider Urology | DX: N20.0 Calculus of kidney (principal); R82.994 Hypercalciuria; N39.8 Other specified disorders of urinary system | CPT/HCPCS: 99212 ==

== ENCOUNTER 2022-10-29 12:25 | Outpatient (REF) | payer MEDICARE, MEDICAID, SELFPAY ==
--- NOTE | ~2022-10-29 | MM_ITS ---
EXAMINATION: MM SCREENING DIGITAL BREAST TOMOSYNTHESIS, BILATERAL CLINICAL INFORMATION: Screening. Asymptomatic. The lifetime risk of breast cancer based on the Tyrer-Cuzick Model is 14. COMPARISON: Mammography: 09/28/2021, 06/30/2020, 02/19/2019 TECHNIQUE: Digital breast tomosynthesis is performed in both the craniocaudal and mediolateral oblique views along with computer-aided detection (CAD). Synthesized 2D images are generated from the tomosynthesis. FINDINGS: There are scattered areas of fibroglandular density (ACR BI-RADS breast composition Category b). Parenchymal pattern is similar to prior exams. Denser breast tissue composition in the upper outer quadrants is similar to prior studies with chronic asymmetry right upper outer quadrant. No developing density or architectural abnormality. No abnormal calcifications. There are some small stable grouped calcifications lower right breast, and posterior medial lower left breast corresponding to the dermal calcifications on tomography. The axilla are unremarkable. There are no significant changes. MM/MM tomosynthesis screening BI IMPRESSION: No mammographic evidence of malignancy. ASSESSMENT: BI-RADS 2: Benign RECOMMENDATION: Routine annual mammography screening. This patient's information was entered into a reminder system with a target due date for their next mammogram.
[2022-10-29 15:58] LABS: MANUAL DIFF FLAG NO
[2022-10-29 17:16] LABS: Basophils Absolute Auto 0.1 X10*3/uL (0.0-0.2); Basophils Percent Auto 0.9 % (0-2); Eosinophils Absolute Auto 0.1 X10*3/uL (0.0-0.4); Eosinophils Percent Auto 1.6 % (0-4); Hematocrit 39.7 % (37.0-47.0); Imm Gran Abs Auto 0.03 X10*3/uL (0.00-0.03); Imm Gran Pct Auto 0.3 % (0.0-0.4); Lymphocytes Absolute Auto 2.2 X10*3/uL (1.2-4.9); Mean Corpuscular HGB Conc 32.7 g/dl (31.0-35.0); Mean Corpuscular Hemoglobin 28.3 pg (27.0-33.0); Mean Corpuscular Volume 86.5 fL (80.0-98.0); Mean Platelet Volume 14.1 fL (9.4-12.3); Monocytes Absolute Auto 0.5 X10*3/uL (0.1-1.2); Monocytes Percent Auto 5.3 % (2-11); Neutrophils Absolute Auto 5.9 x10*3/uL (2.0-8.3); Neutrophils Percent Auto 66.9 % (45-73); Platelet Count 153 X10*3/uL (160-400); Red Blood Count 4.59 X10*6/uL (4.20-5.50); Red Cell Distribution Width 14.1 % (11.0-16.0); White Blood Count 8.8 X10*3/uL (4.8-10.8)
[2022-10-29 17:58] LABS: Alanine Aminotransferase 16 U/L (0-31); Albumin Level 4.3 g/dL (3.5-5.0); Alkaline Phosphatase 80 U/L (39-117); Anion Gap 13 (12-20); Aspartate Amino Transferase 26 U/L (5-31); Bilirubin Total 0.6 mg/dL (0.0-1.0); Blood Urea Nitrogen 10 mg/dL (9-16); C Reactive Protein 0.45 mg/dL (< or = 0.50); Calcium 8.8 mg/dL (8.4-10.2); Carbon Dioxide 24 mmol/L (22-29); Chloride 108 mmol/L (96-108); Estimated Glomerular Filt Rate > 60; Glucose Random 75 mg/dL (60-115); Sodium 141 mmol/L (135-145); Total Protein 6.6 g/dL (6.5-8.0)
[2022-10-29 18:02] LABS: Erythrocyte Sedimentation Rate 5 MM/HR (0-20)
[2022-10-31 04:39] LABS: HBS Num1 0.46 mIU/mL (0-7.99); HBc Num1 0.09 S/CO (0.00-0.79); HBsAGNum1 0.28 S/CO (0.00-0.99); Hepatitis A Antibody IgM 0.15 Index (0-0.79); Hepatitis B Core Antibody Nonreactive (Nonreactive); Hepatitis B Surface Antigen Negative (Negative); ~HepC Num1 0.11 S/CO (0.00-0.79); ~Hepatitis A Antibody IgM Nonreactive (Nonreactive); ~Hepatitis B Surface Antibody NONREACTIVE (Nonreactive); ~Hepatitis C Antibody Nonreactive (Nonreactive)
[2022-10-31 13:42] LABS: TS Negative Control Passed; TS Panel A 0; TS Panel B 0; TS Positive Control Passed; TSpotTB Negative (Negative)
== END 2022-10-29 12:26 | disposition home or self-care (01) ==
LOC: HO.MAMMO 12:25
PROVIDERS: Absent Provider Nurse Practitioner Family; PCP Internal Medicine; Visit Provider Internal Medicine
DX: M05.9 Rheumatoid arthritis with rheumatoid factor, unspecified (principal); M81.0 Age-related osteoporosis without current pathological fracture; K21.9 Gastro-esophageal reflux disease without esophagitis; K59.4 Anal spasm; Z12.31 Encounter for screening mammogram for malignant neoplasm of breast; Z79.899 Other long term (current) drug therapy; Z11.59 Encounter for screening for other viral diseases; Z72.89 Other problems related to lifestyle
CPT/HCPCS: 36415; 77063; 77067; 80053; 85025; 85652; 86140; 86481; 86704; 86706; 86709; 86803; 87340; 99212

== ENCOUNTER 2022-11-07 12:06 | Outpatient (REF) | payer MEDICARE, MEDICAID, SELFPAY ==
--- NOTE | ~2022-11-07 | XR_ITS ---
EXAMINATION: XR HAND, RIGHT CLINICAL INFORMATION: Pain COMPARISON: Previous x-ray May 2021 TECHNIQUE: PA, lateral, and oblique views of the right hand. FINDINGS: Bone alignment is normal. No fracture or dislocation. There is mild osteoarthritis at the DIP joint of the second finger with joint space narrowing and osteophyte formation. Joint spaces are otherwise normal. Soft tissues are normal. 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
== END 2022-11-07 12:07 | disposition home or self-care (01) ==
LOC: HO.HOSX 12:06
PROVIDERS: Visit Provider Orthopaedic Surgery
DX: M65.311 Trigger thumb, right thumb (principal); M65.4 Radial styloid tenosynovitis [de Quervain]; M25.641 Stiffness of right hand, not elsewhere classified; M05.9 Rheumatoid arthritis with rheumatoid factor, unspecified; G56.02 Carpal tunnel syndrome, left upper limb
CPT/HCPCS: 73130; 99202

== ENCOUNTER → 2022-11-13 14:00 | Outpatient (BNVA) | payer MEDICARE, MEDICAID, SELFPAY | PROVIDERS: PCP Internal Medicine; Visit Provider Nurse Practitioner Family | DX: M05.9 Rheumatoid arthritis with rheumatoid factor, unspecified (principal); M81.0 Age-related osteoporosis without current pathological fracture | CPT/HCPCS: 99212 ==

== ENCOUNTER 2022-11-22 08:51 | Outpatient (REF) | payer MEDICARE, MEDICAID, SELFPAY ==
[2022-11-22 09:51] LABS: MANUAL DIFF FLAG NO
[2022-11-22 10:29] LABS: Basophils Absolute Auto 0.1 X10*3/uL (0.0-0.2); Basophils Percent Auto 1.2 % (0-2); Eosinophils Absolute Auto 0.2 X10*3/uL (0.0-0.4); Eosinophils Percent Auto 3.1 % (0-4); Hematocrit 39.5 % (37.0-47.0); Hemoglobin 12.8 g/dl (12.0-16.0); Imm Gran Abs Auto 0.01 X10*3/uL (0.00-0.03); Imm Gran Pct Auto 0.1 % (0.0-0.4); Lymphocytes Absolute Auto 2.2 X10*3/uL (1.2-4.9); Lymphocytes Percent Auto 29.2 % (20-40); Mean Corpuscular HGB Conc 32.4 g/dl (31.0-35.0); Mean Corpuscular Hemoglobin 28.1 pg (27.0-33.0); Mean Corpuscular Volume 86.6 fL (80.0-98.0); Mean Platelet Volume 13.5 fL (9.4-12.3); Monocytes Absolute Auto 0.6 X10*3/uL (0.1-1.2); Monocytes Percent Auto 7.8 % (2-11); Neutrophils Absolute Auto 4.3 x10*3/uL (2.0-8.3); Neutrophils Percent Auto 58.6 % (45-73); Platelet Count 150 X10*3/uL (160-400); Red Blood Count 4.56 X10*6/uL (4.20-5.50); Red Cell Distribution Width 14.6 % (11.0-16.0); White Blood Count 7.4 X10*3/uL (4.8-10.8)
[2022-11-22 10:41] LABS: D Dimer High Sensitivity 360 NG/ML
[2022-11-22 11:09] LABS: Erythrocyte Sedimentation Rate 8 MM/HR (0-20)
[2022-11-22 11:11] LABS: Anion Gap 13 (12-20); Blood Urea Nitrogen 8 mg/dL (9-16); Calcium 8.9 mg/dL (8.4-10.2); Carbon Dioxide 26 mmol/L (22-29); Chloride 105 mmol/L (96-108); Estimated Glomerular Filt Rate > 60; Glucose Random 89 mg/dL (60-115); Potassium 4.3 mmol/L (3.3-5.1); Sodium 140 mmol/L (135-145)
[2022-11-22 11:17] LABS: Troponin-I High Sensitivity < 2.7 ng/L (<3.5-17.0)
== END 2022-11-22 08:52 | disposition home or self-care (01) ==
LOC: HO.LAB 08:51
PROVIDERS: PCP Internal Medicine; Visit Provider Hospitalist
DX: J44.9 Chronic obstructive pulmonary disease, unspecified (principal); I26.99 Other pulmonary embolism without acute cor pulmonale; R07.9 Chest pain, unspecified; R91.8 Other nonspecific abnormal finding of lung field; F17.200 Nicotine dependence, unspecified, uncomplicated
CPT/HCPCS: 36415; 80048; 84484; 85025; 85379; 85652; 99202

== ENCOUNTER 2022-11-23 11:23 | Outpatient (REF) | payer MEDICARE, MEDICAID, SELFPAY ==
--- NOTE | ~2022-11-23 | CT_ITS ---
EXAMINATION: CT ANGIOGRAM OF THE CHEST WITH AND WITHOUT CONTRAST (CT PULMONARY ANGIOGRAM FOR PE) CLINICAL INFORMATION: Reason for Exam R07.9 - Chest pain, unspecified COMPARISON: Previous chest CT August 2022 and chest CTA October 2022 TECHNIQUE: Prior to contrast administration, noncontrast localization images were obtained. Subsequently, multidetector volumetric imaging was performed from the thoracic inlet to below the diaphragms following the administration of 65 mL Omnipaque 350 intravenous contrast. No contrast reaction reported Sagittal, coronal, and MIP oblique sagittal reformatted images were obtained on the CT workstation, uploaded to PACS, and reviewed. This CT examination was performed using dose optimization techniques as appropriate, variously including the following: *Automated exposure control *Adjustment of mA and/or kV according to patient size (this includes techniques or standardized protocols for targeted exams where dose is matched to indication/reason for exam; i.e. extremities or head) *Use of iterative reconstruction technique Total exam dose-length product 104 mGy-cm FINDINGS: QUALITY OF STUDY/CONTRAST BOLUS: Satisfactory. PULMONARY ARTERIES: No pulmonary emboli. Stable curvilinear density in the left lower lobe pulmonary artery extending into proximal segmental branches, for example coronal reconstructed image 62 from most recent exam October 2022 but new from older exam August 2022. THORACIC AORTA: No aneurysm. LUNG: There were scattered areas of mild increased peribronchial attenuation and bronchial wall thickening seen, greatest in the left lower lobe suggestive of bronchitis. Previously identified scattered groundglass attenuation peribronchial nodular opacities on October 2022 exam appear improved. There is heterogeneous attenuation of the lungs likely representing hypoventilatory changes. There are 2 adjacent 3 mm left lower lobe superior segment nodules axial image 22 series 5. In retrospect these are stable from 2022 exam. The lungs are otherwise clear. PLEURA: No pleural effusion or pneumothorax. MEDIASTINUM: Upper normal heart size. No pericardial effusion. No hilar or mediastinal lymphadenopathy. No evidence of septal bowing or right heart strain. CORONARY ARTERY CALCIFICATION: None visualized on this study. CHEST WALL/AXILLA: Asymmetric density in the right lateral breast. Correlation with mammogram findings recommended. OSSEOUS STRUCTURES: No acute or suspicious osseous abnormality. Degenerative changes of the spine. UPPER ABDOMEN: Unremarkable. No reflux of contrast into the hepatic veins to suggest elevated right heart pressures. CT/CT angio chest PE protocol IMPRESSION: No evidence of pulmonary embolism. Stable curvilinear radiopaque density in the left lower lobe pulmonary artery. Clinical correlation recommended. Probable mild bronchitis and airways disease. This is greatest in the left lower lobe. Previously identified bilateral lower lobe groundglass attenuation nodules October 2022 appear improved. Stable solid left lower lobe pulmonary nodules. Moderate to severe coronary artery calcification. According to the UPDATED 2017 Fleischner Society recommendations, the advised follow-up imaging for less than 6 mm solid nodule: Low risk, no chest CT follow-up and high risk, optional chest CT follow-up in one year. VTE: negative
[2022-11-23] MEDS: iohexoL 350 MG/ML 100 ML INFUS..BTL IV (12:06)
== END 2022-11-23 11:24 | disposition home or self-care (01) ==
LOC: HO.CT 11:23
PROVIDERS: PCP Internal Medicine; Visit Provider Hospitalist
DX: R07.9 Chest pain, unspecified (principal); I26.99 Other pulmonary embolism without acute cor pulmonale
CPT/HCPCS: 71275; Q9967

== ENCOUNTER 2022-12-05 15:42 | Outpatient (REF) | payer MEDICARE, MEDICAID, SELFPAY ==
[2022-12-05 16:09] LABS: Imm Gran Abs Auto 0.02 X10*3/uL (0.00-0.03); Imm Gran Pct Auto 0.3 % (0.0-0.4); Lymphocytes Absolute Auto 2.1 X10*3/uL (1.2-4.9); Red Cell Distribution Width 14.6 % (11.0-16.0); SCAN SMEAR FLAG 1
[2022-12-05 16:11] LABS: Basophils Absolute Auto 0.1 X10*3/uL (0.0-0.2); Basophils Percent Auto 0.9 % (0-2); Eosinophils Absolute Auto 0.1 X10*3/uL (0.0-0.4); Eosinophils Percent Auto 1.4 % (0-4); Hematocrit 40.1 % (37.0-47.0); Hemoglobin 13.2 g/dl (12.0-16.0); Lymphocytes Percent Auto 29.9 % (20-40); Mean Corpuscular HGB Conc 32.9 g/dl (31.0-35.0); Mean Corpuscular Hemoglobin 28.6 pg (27.0-33.0); Mean Corpuscular Volume 86.8 fL (80.0-98.0); Monocytes Absolute Auto 0.5 X10*3/uL (0.1-1.2); Monocytes Percent Auto 6.9 % (2-11); Neutrophils Absolute Auto 4.2 x10*3/uL (2.0-8.3); Neutrophils Percent Auto 60.6 % (45-73); Platelet Count 143 X10*3/uL (160-400); Red Blood Count 4.62 X10*6/uL (4.20-5.50)
[2022-12-05 16:20] LABS: MANUAL DIFF FLAG NO; PLT ABN DIST 1
[2022-12-05 16:50] LABS: Alanine Aminotransferase 13 U/L (0-31); Albumin Level 4.5 g/dL (3.5-5.0); Alkaline Phosphatase 88 U/L (39-117); Anion Gap 12 (12-20); Aspartate Amino Transferase 21 U/L (5-31); Bilirubin Total 0.6 mg/dL (0.0-1.0); Blood Urea Nitrogen 10 mg/dL (9-16); C Reactive Protein 0.14 mg/dL (< or = 0.50); Calcium 9.6 mg/dL (8.4-10.2); Carbon Dioxide 30 mmol/L (22-29); Chloride 104 mmol/L (96-108); Estimated Glomerular Filt Rate > 60; Glucose Random 97 mg/dL (60-115); Potassium 3.8 mmol/L (3.3-5.1); Sodium 142 mmol/L (135-145); Total Protein 7.2 g/dL (6.5-8.0)
[2022-12-05 17:29] LABS: Erythrocyte Sedimentation Rate 4 MM/HR (0-20)
== END 2022-12-05 15:43 | disposition home or self-care (01) ==
LOC: HO.LAB 15:42
PROVIDERS: PCP Internal Medicine; Visit Provider Nurse Practitioner Family
DX: M05.9 Rheumatoid arthritis with rheumatoid factor, unspecified (principal)
CPT/HCPCS: 36415; 80053; 85025; 85652; 86140

== ENCOUNTER → 2022-12-11 13:53 | Outpatient (BNVA) | payer MEDICARE, MEDICAID, SELFPAY | PROVIDERS: PCP Internal Medicine; Visit Provider Nurse Practitioner Family | DX: M81.0 Age-related osteoporosis without current pathological fracture (principal); M05.9 Rheumatoid arthritis with rheumatoid factor, unspecified | CPT/HCPCS: 99202; 99212 ==

== ENCOUNTER 2022-12-12 12:58 | Outpatient (REF) | payer MEDICARE, MEDICAID, SELFPAY ==
[2022-12-12 16:18] LABS: Phosphorus 3.1 mg/dL (2.7-4.5)
== END 2022-12-12 12:59 | disposition home or self-care (01) ==
LOC: HO.LAB 12:58
PROVIDERS: Absent Provider Internal Medicine Endocrinology, Diabetes & Metabolism; PCP Internal Medicine; Visit Provider Nurse Practitioner
DX: Z01.818 Encounter for other preprocedural examination (principal); K64.9 Unspecified hemorrhoids; K59.04 Chronic idiopathic constipation; K21.9 Gastro-esophageal reflux disease without esophagitis; K59.4 Anal spasm; M81.0 Age-related osteoporosis without current pathological fracture
CPT/HCPCS: 36415; 84100; 99212

== ENCOUNTER 2022-12-25 07:38 | Outpatient (REF) | payer MEDICARE, MEDICAID, SELFPAY | END 2022-12-25 07:39 | disposition home or self-care (01) | LOC: HO.HOSX 07:38 | PROVIDERS: Visit Provider Orthopaedic Surgery | DX: Z13.89 Encounter for screening for other disorder (principal) ==

== ENCOUNTER → 2023-01-01 11:23 | Outpatient (BNVA) | payer MEDICARE, MEDICAID, SELFPAY | PROVIDERS: PCP Internal Medicine; Visit Provider Internal Medicine Endocrinology, Diabetes & Metabolism | DX: M81.0 Age-related osteoporosis without current pathological fracture (principal) | CPT/HCPCS: 96372; J3111 ==

== ENCOUNTER 2023-01-02 12:56 | Outpatient (REF) | payer MEDICARE, MEDICAID, SELFPAY ==
--- NOTE | 2023-01-02 14:09 | PFT_ITS ---
Forced vital capacity 81%, FEV1 83%. FEF 25/75 is 85% and MVV 88%. Post bronchodilator therapy, there is a significant improvement in FEF 25/75. Total lung capacity 95%. Residual volume 113%. Diffusion capacity 74%. CONCLUSION: The pulmonary function test is basically normal, but exaggerated response to bronchodilator therapy indicates possible small airway obstructive disorder/mild bronchial asthma. Clinical correlation is recommended. MD BENSON Barrow/HERMAN / [phone]
== END 2023-01-02 12:57 | disposition home or self-care (01) ==
LOC: HO.RESP 12:56
PROVIDERS: PCP Internal Medicine; Visit Provider Hospitalist
DX: J44.9 Chronic obstructive pulmonary disease, unspecified (principal)
CPT/HCPCS: 94060; 94727; 94729

== ENCOUNTER → 2023-01-21 10:58 | Outpatient (BNVA) | payer MEDICARE, MEDICAID, SELFPAY | PROVIDERS: Visit Provider Urology | DX: R82.994 Hypercalciuria (principal); N20.0 Calculus of kidney; N39.8 Other specified disorders of urinary system; E21.3 Hyperparathyroidism, unspecified | CPT/HCPCS: 51798; 99212 ==

== ENCOUNTER → 2023-01-23 12:44 | Outpatient (BNVA) | payer MEDICARE, MEDICAID, SELFPAY | PROVIDERS: PCP Internal Medicine; Visit Provider Nurse Practitioner | DX: K21.9 Gastro-esophageal reflux disease without esophagitis (principal); K59.04 Chronic idiopathic constipation; K64.9 Unspecified hemorrhoids; K59.4 Anal spasm; R13.10 Dysphagia, unspecified | CPT/HCPCS: 99212 ==

== ENCOUNTER → 2023-01-24 11:09 | Outpatient (BNVA) | payer MEDICARE, MEDICAID, SELFPAY | PROVIDERS: PCP Internal Medicine; Visit Provider Hospitalist | DX: I26.99 Other pulmonary embolism without acute cor pulmonale (principal); I25.10 Atherosclerotic heart disease of native coronary artery without angina pectoris; R07.9 Chest pain, unspecified; R91.8 Other nonspecific abnormal finding of lung field; J44.9 Chronic obstructive pulmonary disease, unspecified | CPT/HCPCS: 99212 ==

== ENCOUNTER 2023-01-31 10:24 | Outpatient (REF) | payer MEDICARE, MEDICAID, SELFPAY ==
--- NOTE | 2023-01-31 | EMG_ITS ---
Right median and ulnar motor and sensory studies were performed. Right radial sensory studies were performed. Paraspinal muscles were tested with a needle. IMPRESSION: [id number]-[id number] right median neuropathy across carpal tunnel. MD CHLOE Navas/HERMAN / [phone]
== END 2023-01-31 10:25 | disposition home or self-care (01) ==
LOC: HO.NEURO 10:24
PROVIDERS: PCP Internal Medicine; Visit Provider Internal Medicine
DX: G56.01 Carpal tunnel syndrome, right upper limb (principal)
CPT/HCPCS: 95886; 95910

== ENCOUNTER 2023-02-01 11:32 | Outpatient (AMB) | payer MEDICARE, MEDICAID, SELFPAY ==
--- NOTE | 2023-02-01 13:22 | AM.OFFVISNUR ---
Intake Intake Visit Reasons: Evenity #2 Allergies Penicillins [PENICILLINS] Allergy (Intermediate, Verified 01/24/23 11:26) RASH/HIVES alendronate sodium Allergy (Verified 01/24/23 11:26) Wheezing dexamethasone Allergy (Verified 01/24/23 11:26) Eye Swelling Office Meds [id number] Performing Provider: Roddy Queen MD Administered by: Joe Castro RN on 02/01/23 11:45 Dose Route Admin Location Lot Number Expiration Date [facility] [employer] 210 mg subcut abdomen bilateral SQ [id number] 04/20/25 49961-260-86 AMGEN Comments: consent obtained for evenity injections. Coding Diagnoses Assessment & Plan Assessment & Plan Orders: Orders AMB Romosozumab Injection Patient Supplied Today M81.0 - Age-related osteoporosis without current pathological fracture
== END 2023-02-01 12:02 | disposition home or self-care (01) ==
PROVIDERS: PCP Internal Medicine; Visit Provider Internal Medicine Endocrinology, Diabetes & Metabolism
DX: M81.0 Age-related osteoporosis without current pathological fracture (principal)

== ENCOUNTER → 2023-02-01 11:32 | Outpatient (BNVA) | payer MEDICARE, MEDICAID, SELFPAY | PROVIDERS: PCP Internal Medicine; Visit Provider Internal Medicine Endocrinology, Diabetes & Metabolism | DX: M81.0 Age-related osteoporosis without current pathological fracture (principal) | CPT/HCPCS: 96372; J3111 ==

== ENCOUNTER 2023-02-20 10:54 | Outpatient (REF) | payer MEDICARE, MEDICAID, SELFPAY ==
--- NOTE | ~2023-02-20 | CT_ITS ---
EXAMINATION: CT ABDOMEN AND PELVIS WITHOUT CONTRAST CLINICAL INFORMATION: Renal calculus. COMPARISON: 09/01/2022 TECHNIQUE: Multidetector volumetric imaging was performed from the superior aspect of the liver through the pubic symphysis. Sagittal and coronal reformatted images were obtained on the technologist's workstation. This CT examination was performed using dose optimization techniques as appropriate, variously including the following: *Automated exposure control *Adjustment of mA and/or kV according to patient size (this includes techniques or standardized protocols for targeted exams where dose is matched to indication/reason for exam; i.e. extremities or head) *Use of iterative reconstruction technique DLP: 315 mGy-cm FINDINGS: LUNG BASES: Bronchial amaro are chronically mildly thickened. Mild atelectasis within lung bases. No acute findings in the bases compared to 11/23/2022. Again noted is linear hyperdensity within a left lower lobe pulmonary artery suspected to represent cement embolization from lumbar vertebral augmentation procedure. LIVER: The liver has normal size, shape, and attenuation. No evidence of liver mass. GALLBLADDER AND BILIARY TREE: Gallbladder is without radiopaque stones, wall thickening or pericholecystic fluid. No dilated bile ducts. PANCREAS: Normal. No edema, pancreatic ductal dilatation or mass. SPLEEN: Normal. ADRENAL GLANDS: Normal. KIDNEYS AND URETERS: The kidneys have normal size and cortical thickness. No perinephric edema. No urolithiasis or hydroureteronephrosis. BLADDER: Normal. No calculi or wall thickening. BOWEL AND PERITONEUM: Stomach is unremarkable. No dilated loops of bowel. The appendix is normal. No overt bowel wall thickening or mesenteric fat stranding. No free fluid or pneumoperitoneum. ABDOMINAL WALL: Unremarkable. VASCULATURE: There is atherosclerotic calcification of abdominal aorta and iliac arteries without aneurysm. LYMPH NODES: No pathologic sized lymph nodes in the abdomen or pelvis. No inguinal lymphadenopathy. PELVIC VISCERA: No evidence of uterine or adnexal mass. No pelvic free fluid. MUSCULOSKELETAL: Mild levocurvature of the degenerated lumbar spine and cement augmentation of compression fractures of L2 and L3 vertebra. Mild extrusion of cement through the L2 superior endplate into the central third of the disc space. At L5-S1, there is [id number] loss of the disc space, vacuum disc phenomenon, endplate sclerosis, disc bulge, vertebral osteophyte formation and moderate facet arthropathy. CT/CT abdomen pelvis wo IV con IMPRESSION: * No CT imaging evidence of urinary tract calculi or hydronephrosis. * Compared to 09/01/2022, there has been interval vertebral cement augmentation of compressed L2 and L3 vertebra.
== END 2023-02-20 10:55 | disposition home or self-care (01) ==
LOC: HO.CT 10:54
PROVIDERS: Visit Provider Urology
DX: N20.0 Calculus of kidney (principal)
CPT/HCPCS: 74176

== ENCOUNTER 2023-03-04 14:20 | Outpatient (REF) | payer MEDICARE, MEDICAID, SELFPAY ==
[2023-03-04 15:03] LABS: Basophils Absolute Auto 0.1 X10*3/uL (0.0-0.2); Basophils Percent Auto 1.6 % (0-2); Eosinophils Absolute Auto 0.1 X10*3/uL (0.0-0.4); Eosinophils Percent Auto 2.2 % (0-4); Imm Gran Abs Auto 0.01 X10*3/uL (0.00-0.03); Imm Gran Pct Auto 0.2 % (0.0-0.4); MANUAL DIFF FLAG SCAN; Mean Corpuscular HGB Conc 32.5 g/dl (31.0-35.0); Mean Corpuscular Volume 83.9 fL (80.0-98.0); SCAN SMEAR FLAG 1
[2023-03-04 15:05] LABS: Hematocrit 34.5 % (37.0-47.0); Hemoglobin 11.2 g/dl (12.0-16.0); Lymphocytes Absolute Auto 1.7 X10*3/uL (1.2-4.9); Lymphocytes Percent Auto 33.5 % (20-40); Mean Corpuscular Hemoglobin 27.3 pg (27.0-33.0); Monocytes Absolute Auto 0.5 X10*3/uL (0.1-1.2); Monocytes Percent Auto 9.4 % (2-11); Neutrophils Absolute Auto 2.7 x10*3/uL (2.0-8.3); Neutrophils Percent Auto 53.1 % (45-73); Platelet Count 141 X10*3/uL (160-400); Red Blood Count 4.11 X10*6/uL (4.20-5.50); Red Cell Distribution Width 14.7 % (11.0-16.0)
[2023-03-04 15:24] LABS: PLT ABN DIST 1
[2023-03-04 15:40] LABS: Erythrocyte Sedimentation Rate 6 MM/HR (0-20)
[2023-03-04 16:06] LABS: SLIDE REVIEW VERIFIED
[2023-03-05 01:54] LABS: Alanine Aminotransferase 14 U/L (0-31); Albumin Level 4.2 g/dL (3.5-5.0); Alkaline Phosphatase 85 U/L (39-117); Anion Gap 10 (12-20); Aspartate Amino Transferase 20 U/L (5-31); Bilirubin Total 0.5 mg/dL (0.0-1.0); Blood Urea Nitrogen 11 mg/dL (9-16); C Reactive Protein 0.26 mg/dL (< or = 0.50); Calcium 8.3 mg/dL (8.4-10.2); Carbon Dioxide 27 mmol/L (22-29); Chloride 107 mmol/L (96-108); Estimated Glomerular Filt Rate > 60; Glucose Random 88 mg/dL (60-115); Potassium 4.3 mmol/L (3.3-5.1); Sodium 140 mmol/L (135-145)
== END 2023-03-04 14:21 | disposition home or self-care (01) ==
LOC: HO.LAB 14:20
PROVIDERS: Visit Provider Nurse Practitioner Family
DX: M05.9 Rheumatoid arthritis with rheumatoid factor, unspecified (principal)
CPT/HCPCS: 36415; 80053; 85025; 85652; 86140

== ENCOUNTER → 2023-03-05 11:01 | Outpatient (BNVA) | payer MEDICARE, MEDICAID, SELFPAY | PROVIDERS: PCP Internal Medicine; Visit Provider Internal Medicine Endocrinology, Diabetes & Metabolism ==

== ENCOUNTER 2023-03-05 11:12 | Outpatient (REF) | payer MEDICARE, MEDICAID, SELFPAY ==
[2023-03-05 13:24] LABS: Albumin Level 4.2 g/dL (3.5-5.0)
[2023-03-05 13:43] LABS: Vitamin D 25-OH Total 62.3 ng/mL (>30)
[2023-03-07 09:14] LABS: Calcium (PTHI) 8.5 mg/dL (8.6-10.4); PTHI 47 pg/mL (16-77)
== END 2023-03-05 11:13 | disposition home or self-care (01) ==
LOC: HO.10HDL 11:12
PROVIDERS: Visit Provider Internal Medicine Endocrinology, Diabetes & Metabolism
DX: M81.0 Age-related osteoporosis without current pathological fracture (principal)
CPT/HCPCS: 36415; 82040; 82306; 83970

== ENCOUNTER 2023-03-07 10:21 | Outpatient (AMB) | payer MEDICARE, MEDICAID, SELFPAY ==
--- NOTE | 2023-03-07 10:42 | MHC.OFFVIS ---
Intake Vital Signs 03/07/23 10:43 Height 5 ft 3 in Weight 138 lb 3.677 oz BMI 24.5 BP 158/60 H Blood Pressure Location Lt brachial Position Sitting Pulse 74 Pulse Source Pulse Oximeter Temp 97.3 F Temp Source Skin Pulse Oximetry (%) 96 Oxygen Delivery Method Room Air Intake Visit Reasons: rheumatoid arthritis Intake Note: Here for RA follow up. 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 She is now on leflunomide 20 mg daily since the spring. She initially thought it was helping but now she is not quite sure. She describes widespread bone pains . These are present most days but vary in severity. Some days she feels like she cannot move. Usually she has pain in the mornings mostly across the IP joints in the fingers. She notes a few of them are deformed. She is on a host of medications including long-acting oxycodone, Lyrica 300 b.i.d., bedtime tizanidine p.r.n., diclofenac 75 mg twice a day, folic acid 1 mg daily and monthly Evenity for osteoporosis. She was recently told that her calcium was low so she is on increased calcium supplement as well as vitamin-D. There is a prior history of a parathyroidectomy for hyperparathyroidism. For anxiety she is on buspirone, lorazepam, zolpidem. Besides Rheumatology she also sees Pain Management, Psychiatry and Neurology. [facility] Medical History (Updated 03/07/23 @ 14:15 by Godwin Johnson MD) Chest pain COPD (chronic obstructive pulmonary disease) Coronary artery calcification seen on CAT scan Dyspnea Hx of hemorrhoids Pulmonary emboli Pulmonary nodules Seropositive rheumatoid arthritis Urinary urgency Surgical History History of esophagogastroduodenoscopy (EGD) Hx of colonoscopy Family History Father Cancer Mother Colon cancer HTN (hypertension) Diabetes Breast cancer Brother Lupus HTN (hypertension) Kidney transplanted Sister HTN (hypertension) Cancer Liver transplanted Other FH: cancer FH: mental illness Social History (Updated 03/07/23 @ 10:51 by DANIELA Wylie) Household Members: None Housing: House Alcohol intake: former Patient Tobacco Use Status: Former Tobacco user Cigarettes Per Day: 5 Years Smoked: 43 Review of Systems Const Details: Low energy and fatigue. Negative for appetite change, weight change, fever, chills, malaise Eyes Details: Negative for vision change, dry eyes,headaches and dizziness Card Details: Negative chest pain, edema and syncope Resp Details: Negative for SOB, cough and wheezing GI Details: Intermittent heartburn, bloating and constipation. These are chronic complaints. Negative diarrhea and bloody stool. Skin/Breast Details: Negative for itching, rash, hives, Raynaud's symptoms, sun sensitivity, and skin cancer Psych Details: Anxiety and depression apparently controlled with current medications. Lamotrigine was apparently recently discontinued. Endo Details: Negative for polyuria and polydypsia Mason/Lymph Details: Negative for excessive bruising or bleeding. Physical Exam Vital Signs: Last Vital Signs Temp 97.3 F 03/07/23 10:43 Pulse 74 03/07/23 10:43 BP 158/60 H 03/07/23 10:43 Pulse Ox 96 03/07/23 10:43 Oxygen Delivery Method Room Air 03/07/23 10:43 BMI result Body Mass Index 24.5 APPEARANCE: Patient in no acute distress EYES no redness, pupils equal and reactive to light, eyelids normal EARS: External ear normal, canal clear and tympanic membrane normal. NOSE/SINUS: Airflow through both nares, no nasal discharge, no bleeding THROAT: Oral mucosa moist, no ulcerations NECK: No thyromegaly or masses, no adenopathy, trachea midline. HEART: Regulrar rhythm, S1-S2 heard, no murmurs, rubs or gallops. LUNG: Clear to percussion and auscultation ABD: Normal bowel sounds, no organomegaly, masses or tenderness. EXTREMITIES: No edema, no calf tenderness, normal peripheral pulses. JOINT EXAM: Cervical Spine:? Full range of motion with mild pain at the extremes.? Slight tenderness to palpation of the cervical spinal muscles. Thoracic Spine:? No tenderness on palpation. Lumbar Spine: Mild pain with flexion at 60 degrees. There is spinal and paraspinal muscle tenderness. Multiple small healed scars. Hands: LEFT:? Slight tenderness but no swelling in the MCP joints. There is bony enlargement of the 2nd through 4th PIP joints. These there is mild tenderness in those joints, perhaps more prominent at the 2nd PIP. There is mild tenderness and bony enlargement at the 2nd and 3rd DIPs.? No erythema or increased warmth. No thenar atrophy or sensory loss. ? RIGHT: Mild pain with range of motion in the 2nd 3rd fingers. There is slight tenderness but no swelling in the MCP joints. There is mild bony enlargement of the thumb IP and in all the PIP joints. The 2nd 3rd have mild tenderness. Their range of motion is slightly diminished. There is mild bony enlargement and tenderness at the 2nd and 5th distal interphalangeal joints. No sensory loss or thenar atrophy. Wrists:? Right: Slight pain with flexion extension at 75 degrees with some slight tenderness but no swelling. Left: Normal pain-free range of motion without tenderness, swelling, increased warmth or erythema. Elbows: LEFT: Full range of motion without tenderness, swelling, increased warmth or erythema. ? RIGHT:? Full range of motion without tenderness, swelling, increased warmth or erythema. Shoulders: Full range of motion without pain. No tenderness, weakness, swelling, increased warmth or erythema. Hip bursa:? Mild trochanteric tenderness. Knees:? Normal pain-free range of motion with mild patellofemoral crepitus. There is slight medial compartment tenderness without effusion, soft tissue swelling, increased warmth or erythema.? Ankles:? Full motion with mild tenderness. No? swelling, increased warmth or erythema.? Tenderness reported to palpation throughout. ? Feet: Diffuse tenderness over the heel, instep, MTP region and toes. However there is no swelling, increased warmth or erythema.? Tender points: Tenderness to digital palpation at the occiput, trapezius, second rib, lateral epicondyle, knees, greater trochanter and gluteal area bilaterally. ? Results Reviewed Results Reviewed: Laboratory Tests 08/03/04/23 03/04/23 14:28 14:28 14:28 WBC 5.0 Hgb 11.2 L ESR 6 Creatinine 0.81 AST 20 ALT 14 C-Reactive Protein 0.[address] [address] XRay Report Signed Patient: Brisa Romero I MR#: [id number] : 1965 Acct:[id number] Age/Sex: 56 / F ADM Date: 05/29/[address]: Andreea Medina NP Ordering Physician: Andreea Medina NP Date of Service: 05/29/21 Procedure(s): XR hand LT min 3V Accession Number(s): [id number] cc: Andreea Medina NP~ EXAMINATION: XR HAND, RIGHT XR HAND, LEFT CLINICAL INFORMATION: Rheumatoid arthritis? COMPARISON: None? TECHNIQUE: Right hand, 3 views Left ankle, 3 views? FINDINGS: Right hand: Bones have normal alignment throughout the hand or wrist. The joint spaces of the wrist are well-preserved. There is 0.3 cm of ulna negative variance. The metacarpophalangeal joints and proximal interphalangeal joints are unremarkable. Small osteophytes and mild joint space narrowing at second and third DIP joints. No periarticular osteoporosis, erosions or periostitis. Left hand:? Bones have normal alignment throughout the hand or wrist. The joint spaces of the wrist are well-preserved. There is 0.3 cm of ulna negative variance. The metacarpophalangeal joints and proximal interphalangeal joints are unremarkable. Small osteophytes are noted at several interphalangeal joints. No periarticular osteoporosis, erosions or periostitis. XR/XR hand LT min 3V IMPRESSION: *? No radiographic evidence of rheumatoid arthritis in either hand or wrist. *? Mild osteoarthrosis affecting several interphalangeal joints of both hands.? Dictated By: LUL LEE MD Assessment & Plan Assessment & Plan (1) Osteoporosis: Comment: fragility fractures requiring kyphoplasty 10/08/2022. DEXA from September 2021 with T-score of-2.6 in the femoral neck. Patient has a history of hyperparathyroidism and underwent surgery to remove 2 parathyroid glands 12/05/2020. Previously following with [facility] endocrine. New referral placed [facility] endocrine Code(s): M81.0 - Age-related osteoporosis without current pathological fracture Qualifiers: Presence of current pathological fracture: with current pathological fracture (2) Osteoarthritis of hands, bilateral: Code(s): M19.041 - Primary osteoarthritis, right hand; M19.042 - Primary osteoarthritis, left hand (3) Fibromyalgia: Code(s): M79.7 - Fibromyalgia (4) ferry hand current use of immunosuppressive drug: Code(s): Z79.899 - Other shelter (current) drug therapy (5) Seropositive rheumatoid arthritis: Comment: Methotrexate: prior to 2018- October 2021 Leflunomide: October 2022 to present Code(s): M05.9 - Rheumatoid arthritis with rheumatoid factor, unspecified Plan The patient remains with many widespread pains. On exam I do not see signs of an active inflammatory arthritis. The acute phase reactants are normal. I would conclude that the RA is under fairly good control with current treatment. She none the less has widespread pain likely due to some osteoarthritis in the lumbar spine, cervical spine, and the hands. Additionally she has many widespread tender points consistent with underlying fibromyalgia. She is on a host of medications including a long-acting opioid. It is not clearly they all help her a whole lot but it would be difficult to try to taper her off these medicines. The folic acid is not needed as she is no longer on the methotrexate. I encouraged her to try to remain physically active in spite of her pains. She does take some oral diclofenac but wants to try additional medications so we will add some topical diclofenac. I do not think that will add enough to systemically make a difference in terms of side effects for her. She is tolerating the leflunomide so we will continue with that for the RA. We will see her back in 3 months with lab work before that visit. Today's visit reviewing her history and explaining her different causes of musculoskeletal pain took 38 minutes. Orders: Orders Alanine Aminotransferase Today M05.9 - Rheumatoid arthritis with rheumatoid factor, unspecified, Z79.899 - Other silk examiner (current) drug therapy Aspartate Amino Transferase Today M05.9 - Rheumatoid arthritis with rheumatoid factor, unspecified, Z79.899 - Other silk examiner (current) drug therapy Creatinine Today M05.9 - Rheumatoid arthritis with rheumatoid factor, unspecified, Z79.899 - Other shelter (current) drug therapy C Reactive Protein Today M05.9 - Rheumatoid arthritis with rheumatoid factor, unspecified Complete Blood Count Auto Diff Today M05.9 - Rheumatoid arthritis with rheumatoid factor, unspecified, Z79.899 - Other shelter (current) drug therapy Erythrocyte Sedimentation Rate Today M05.9 - Rheumatoid arthritis with rheumatoid factor, unspecified Medications: New diclofenac sodium 1% to affected joints 1 - 2 grams topical BID 100 grams 3RF Discontinued folic acid Discontinued Reason: Patient Completed Course 1 mg PO DAILY 90 tabs 1RF Coding Level of Care Code Est Pt Level 4 (89016) Diagnoses Osteoporosis M81.0 Presence of current pathological fracture: with current pathological fracture Osteoarthritis of hands, bilateral M19.041; M19.042 Fibromyalgia M79.7 ferry hand current use of immunosuppressive drug Z79.899 Seropositive rheumatoid arthritis M05.9
[2023-03-07 10:43] VITALS: BP 158/60; PULSE 74; TEMP 36.3; O2SAT 96; BMI 24.5
== END 2023-03-07 11:37 | disposition home or self-care (01) ==
PROVIDERS: PCP Internal Medicine; Visit Provider Internal Medicine Rheumatology
DX: M05.79 Rheumatoid arthritis with rheumatoid factor of multiple sites without organ or systems involvement (principal); M81.0 Age-related osteoporosis without current pathological fracture; M19.041 Primary osteoarthritis, right hand; M19.042 Primary osteoarthritis, left hand; M79.7 Fibromyalgia; Z79.899 Other long term (current) drug therapy
CPT/HCPCS: 99214

== ENCOUNTER → 2023-03-07 10:21 | Outpatient (BNVA) | payer MEDICARE, MEDICAID, SELFPAY | PROVIDERS: PCP Internal Medicine; Visit Provider Internal Medicine Rheumatology | DX: M81.0 Age-related osteoporosis without current pathological fracture (principal); M19.041 Primary osteoarthritis, right hand; M19.042 Primary osteoarthritis, left hand; M79.7 Fibromyalgia; M05.9 Rheumatoid arthritis with rheumatoid factor, unspecified; Z79.899 Other long term (current) drug therapy | CPT/HCPCS: 99212 ==

== ENCOUNTER 2023-03-13 10:35 | Outpatient (AMB) | payer MEDICARE, MEDICAID, SELFPAY ==
[2023-03-13 10:48] VITALS: BP 142/92; PULSE 76; BMI 24.4
--- NOTE | 2023-03-13 10:48 | MHC.OFFVIS ---
Intake Vital Signs 03/13/23 10:48 Height 5 ft 3 in Weight 138 lb 0.15 oz BMI 24.4 BP 142/92 H Blood Pressure Location Lt brachial Position Sitting Pulse 76 Pulse Source Pulse Oximeter Intake Visit Reasons: F/up osteoporosis Intake Note: Patient present today for Osteoporosis follow up visit. 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 Accompanied by: Self / Same As Patient Allergies Penicillins [PENICILLINS] Allergy (Intermediate, Verified 03/13/23 10:50) RASH/HIVES alendronate sodium Allergy (Verified 03/13/23 10:50) Wheezing dexamethasone Allergy (Verified 03/13/23 10:50) Eye Swelling Medication List - Last Reconciled 03/13/23 by Roddy Queen MD albuterol sulfate 90 mcg/actuation 2 inhalations inhalation QID alum-mag hydroxide-simeth 400-400-40 mg/5 mL (Mylanta Maximum Strength) 5 mL PO QID PRN bisacodyl (Dulcolax (bisacodyl)) 10 mg (2 x 5 mg) PO BEDTIME 30 days buspirone 7.5 mg PO BID calcium citrate 500 mg (2 x 250 mg calcium) PO BID cholecalciferol (vitamin D3) 50 mcg PO DAILY diclofenac sodium 1% 1 - 2 grams topical BID dicyclomine 20 mg PO QID famotidine (Pepcid) 40 mg PO BID fesoterodine ER (Toviaz) 4 mg PO DAILY 30 days fluticasone propionate 50 mcg/actuation sprays intranasal hydrocortisone 2.5% [address] BID leflunomide 20 mg PO DAILY lidocaine 5% 2 patches topical DAILY linaclotide (Linzess) 290 mcg PO DAILY lorazepam 1 mg PO BID PRN metoprolol succinate ER 100 mg PO DAILY montelukast 10 mg PO DAILY naloxone 4 mg/actuation 0 sprays intranasal nifedipine ER 60 mg PO DAILY oxycodone 10 mg PO Q6H PRN oxycodone ER 20 mg PO BID polyethylene glycol 3350 17 grams PO DAILY pregabalin 300 mg PO BID rabeprazole 20 mg PO BID romosozumab-aqqg (Evenity) 210 mg (2.34 mL) subcut .monthly simethicone 180 mg PO QID Symbicort 160-4.5 mcg/actuation (budesonide-formoterol) 2 puffs inhalation BID 30 days NS tizanidine 6 mg PO BEDTIME PRN valacyclovir 1,000 mg PO TID valsartan-hydrochlorothiazide 320-25 mg 1 tab PO DAILY varenicline mg PO zolpidem 10 mg PO BEDTIME HPI HPI Comments History of Present Illness Details 57 YO Female with PMHx hyperparathyroidism status post parathyroid surgery 12/05/20 is seen in consultation at the request of PCP for Osteoporosis. She has previous seen a [facility] [employer] [facility] diagnosed in few yrs ago . Never Received treatment in the past except for alendronate on 11/13/22. history of pathologic fracture fragility fractures requiring kyphoplasty 10/08/2022. Has few servings of dietary calcium per day Not Takes Calcium supplement Not Takes IU of Vitamin D daily. takes PPI, anticoagulant, antiepileptic not taking glucocorticoid medication. 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 Has dentures No planned upcoming dental work or extractions. Does smoke DXA dated 09/28/21 : EXAMINATION: BONE DENSITOMETRY CLINICAL INDICATION: Postmenopausal. COMPARISON: Baseline BD dated 02/04/2018. TECHNIQUE: Using a [employer] DXA System (software version: 13.1) manufactured by [employer] dual-energy x-ray absorptiometry was performed of the lumbar spine and left hip. The images are of good technical quality. Summary results are attached. FINDINGS: AP SPINE L1-L4: Current: BMD 0.894 g/cm2, Z-score -1.3, T-score -2.4, osteopenia, 5.9% decrease from baseline (<5% change is not significant). Baseline: BMD 0.950 g/cm2. LEFT FEMUR, NECK: Current: BMD 0.670 g/cm2, Z-score -1.5, T-score -2.6, osteoporosis. Baseline: BMD 0.777 g/cm2. LEFT FEMUR, TOTAL: Current: BMD 0.704 g/cm2, Z-score -1.6, T-score -2.4, osteopenia, 11.7% decrease from baseline (<5% change is not significant). Baseline: BMD 0.797 g/cm2. IDENTIFIED RISK FACTORS: Rheumatoid arthritis, tobacco use (current smoker), height loss, glucocorticoids (chronic), menopause. HISTORY OF FRACTURE: None listed. MEDICATIONS: Calcium supplements or multivitamin, vitamin D. MM/XR DEXA axial skeleton IMPRESSION: 1. DIAGNOSIS: Osteoporosis based on the lowest T-score value of -2.6 in the femoral neck applying World Health Organization criteria.? ? Labs: [facility] Medical History (Updated 03/13/23 @ 11:09 by Roddy Queen MD) Chest pain COPD (chronic obstructive pulmonary disease) Coronary artery calcification seen on CAT scan Dyspnea Hx of hemorrhoids Hypocalcemia Pulmonary emboli Pulmonary nodules Seropositive rheumatoid arthritis Urinary urgency Surgical History History of esophagogastroduodenoscopy (EGD) Hx of colonoscopy Family History Father Cancer Mother Colon cancer HTN (hypertension) Diabetes Breast cancer Brother Lupus HTN (hypertension) Kidney transplanted Sister HTN (hypertension) Cancer Liver transplanted Other FH: cancer FH: mental illness Social History Household Members: None Housing: House Alcohol intake: former Patient Tobacco Use Status: Former Tobacco user Cigarettes Per Day: 5 Years Smoked: 43 Physical Exam Vital Signs: Last Vital Signs Pulse 76 03/13/23 10:48 BP 142/92 H 03/13/23 10:48 BMI result Body Mass Index 24.4 Assessment & Plan Assessment & Plan (1) Osteoporosis: Comment: fragility fractures requiring kyphoplasty 10/08/2022. DEXA from September 2021 with T-score of-2.6 in the femoral neck. Patient has a history of hyperparathyroidism and underwent surgery to remove 2 parathyroid glands 12/05/2020. Previously following with [facility] endocrine. New referral placed [facility] endocrine Code(s): M81.0 - Age-related osteoporosis without current pathological fracture Qualifiers: Presence of current pathological fracture: with current pathological fracture Plan: This is a 57-year-old female with a history of primary hyperparathyroidism status post parathyroidectomy with normalization of calcium and PTH with recent vertebral of fragility fracture and kyphoplasty. Secondary workup was negative . She received 2 injections of Evenity recently had a slightly low calcium and last dose was held The plan is to continue increased calcium and current vitamin-D supplementation. Will check magnesium and repeat calcium and albumin and if calcium normalizes will resume Evenity . Less likely possibility is the patient has post-surgical hypoparathyroidism and needs activated vitamin-D in combination (2) Hypocalcemia: Code(s): E83.51 - Hypocalcemia Orders: Orders Free T4 (Free Thyroxine) 4 Weeks M81.0 - Age-related osteoporosis without current pathological fracture Thyroid Stimulating Hormone 4 Weeks M81.0 - Age-related osteoporosis without current pathological fracture Magnesium Today E83.51 - Hypocalcemia Coding Level of Care Code Est Pt Level 3 (52506) Diagnoses Osteoporosis M81.0 Presence of current pathological fracture: with current pathological fracture Hypocalcemia E83.51
== END 2023-03-13 12:27 | disposition home or self-care (01) ==
PROVIDERS: PCP Internal Medicine; Visit Provider Internal Medicine Endocrinology, Diabetes & Metabolism
DX: M81.0 Age-related osteoporosis without current pathological fracture (principal); E83.51 Hypocalcemia
CPT/HCPCS: 99213

== ENCOUNTER → 2023-03-13 10:35 | Outpatient (BNVA) | payer MEDICARE, MEDICAID, SELFPAY | PROVIDERS: Visit Provider Internal Medicine Endocrinology, Diabetes & Metabolism ==

== ENCOUNTER 2023-03-13 11:36 | Outpatient (REF) | payer MEDICARE, MEDICAID, SELFPAY ==
[2023-03-13 19:08] LABS: Albumin Level 4.3 g/dL (3.5-5.0); Calcium 9.2 mg/dL (8.4-10.2); Magnesium 2.1 mg/dL (1.6-2.6)
== END 2023-03-13 11:37 | disposition home or self-care (01) ==
LOC: HO.10HDL 11:36
PROVIDERS: Visit Provider Internal Medicine Endocrinology, Diabetes & Metabolism
DX: M81.0 Age-related osteoporosis without current pathological fracture (principal); E83.51 Hypocalcemia; Z79.899 Other long term (current) drug therapy
CPT/HCPCS: 36415; 82040; 82310; 83735; 99212

== ENCOUNTER 2023-03-14 15:14 | Outpatient (AMB) | payer MEDICARE, MEDICAID, SELFPAY ==
--- NOTE | 2023-03-14 15:25 | AM.OFFVISNUR ---
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
== END 2023-03-14 15:37 | disposition home or self-care (01) ==
PROVIDERS: PCP Internal Medicine; Visit Provider Internal Medicine Endocrinology, Diabetes & Metabolism
DX: M81.0 Age-related osteoporosis without current pathological fracture (principal)

== ENCOUNTER → 2023-03-14 15:14 | Outpatient (BNVA) | payer MEDICARE, MEDICAID, SELFPAY | PROVIDERS: PCP Internal Medicine; Visit Provider Internal Medicine Endocrinology, Diabetes & Metabolism | DX: M81.0 Age-related osteoporosis without current pathological fracture (principal) | CPT/HCPCS: 96372; J3111 ==

== ENCOUNTER 2023-03-27 10:22 | Outpatient (AMB) | payer MEDICARE, MEDICAID, SELFPAY ==
--- NOTE | 2023-03-27 10:36 | A.OFFVIS_ITS ---
Intake Vital Signs 03/27/23 10:37 Height 5 ft 3 in Weight 134 lb 7.712 oz BMI 23.8 BP 144/82 H Blood Pressure Location Lt brachial Position Sitting Pulse 65 Intake Visit Reasons: NPV/Chest Pain/Juan Meraz Intake Note: New patient from Dr Meraz c/o chest pains at times at rest and with activity Occupational Therapist Per Diem Required: No Allergies Penicillins [PENICILLINS] Allergy (Intermediate, Verified 03/13/23 10:50) RASH/HIVES alendronate sodium Allergy (Verified 03/13/23 10:50) Wheezing dexamethasone Allergy (Verified 03/13/23 10:50) Eye Swelling Medication List - Last Reconciled 03/27/23 by Pito Sahni MD albuterol sulfate 90 mcg/actuation 2 inhalations inhalation QID alum-mag hydroxide-simeth 400-400-40 mg/5 mL (Mylanta Maximum Strength) 5 mL PO QID PRN bisacodyl (Dulcolax (bisacodyl)) 10 mg (2 x 5 mg) PO BEDTIME 30 days buspirone 7.5 mg PO BID calcium citrate 500 mg (2 x 250 mg calcium) PO BID cholecalciferol (vitamin D3) 50 mcg PO DAILY diclofenac sodium 1% 1 - 2 grams topical BID dicyclomine 20 mg PO QID famotidine (Pepcid) 40 mg PO BID fesoterodine ER (Toviaz) 4 mg PO DAILY 30 days fluticasone propionate 50 mcg/actuation sprays intranasal hydrocortisone 2.5% 1 appl ND BID leflunomide 20 mg PO DAILY lidocaine 5% 2 patches topical DAILY linaclotide (Linzess) 290 mcg PO DAILY lorazepam 1 mg PO BID PRN metoprolol succinate ER 100 mg PO DAILY montelukast 10 mg PO DAILY naloxone 4 mg/actuation 0 sprays intranasal nifedipine ER 60 mg PO DAILY oxycodone 10 mg PO Q6H PRN oxycodone ER 20 mg PO BID polyethylene glycol 3350 17 grams PO DAILY pregabalin 300 mg PO BID rabeprazole 20 mg PO BID romosozumab-aqqg (Evenity) 210 mg (2.34 mL) subcut .monthly simethicone 180 mg PO QID Symbicort 160-4.5 mcg/actuation (budesonide-formoterol) 2 puffs inhalation BID 30 days NS tizanidine 6 mg PO BEDTIME PRN valacyclovir 1,000 mg PO DAILY valsartan-hydrochlorothiazide 320-25 mg 1 tab PO DAILY varenicline mg PO zolpidem 10 mg PO BEDTIME HPI HPI Comments History of Present Illness Details Thank you for referring Brisa in cardiology consultation today for precordial chest discomfort and shortness of breath. She has the pleasant 57-year-old female with significant musculoskeletal issues including rheumatoid arthritis, osteoarthritis, spine disease, COPD, longstanding hypertension. Patient recently had lumbar compression fracture related osteoporosis and underwent vertebroplasty and had unfortunately in embolic event of the cement into 1 of her pulmonary arteries. Multiple imaging with chest CT EF shown no significant pulmonary embolism and preserved perfusion into the pulmonary arteries. She is referred here because since then she has been experiencing precordial chest tightness pressure is a with exertion associated with shortness of breath. However this discomfort does happen including at rest sometimes with anxiety and sometimes without. Symptoms last for few minutes and then subside slowly. She has never had any prolonged episodes. She has not been hospitalized for the same. She also complains of palpitations at that time. She has not had any lightheadedness, loss of consciousness. No heart failure symptoms. She has limited exercise capacity due to her back and arthritis issue and walks with help of a cane. She also has been diagnosed with COPD although PFTs as suggestive overall normal pulmonary functions with small airway obstructive disorder/asthma [facility] Medical History Chest pain COPD (chronic obstructive pulmonary disease) Coronary artery calcification seen on CAT scan Dyspnea Hx of hemorrhoids Hypocalcemia Pulmonary emboli Pulmonary nodules Seropositive rheumatoid arthritis Urinary urgency Surgical History History of esophagogastroduodenoscopy (EGD) Hx of colonoscopy Family History Father Cancer Mother Colon cancer HTN (hypertension) Diabetes Breast cancer Brother Lupus HTN (hypertension) Kidney transplanted Sister HTN (hypertension) Cancer Liver transplanted Other FH: cancer FH: mental illness Social History Household Members: None Housing: House Alcohol intake: former Patient Tobacco Use Status: Former Tobacco user Cigarettes Per Day: 5 Years Smoked: 43 Review of Systems Const Denies chills, Denies daytime sleepiness, Denies fatigue, Denies fever(s), Denies frequent falls, Denies poor appetite, Denies snoring, Denies stops breathing during sleep, Denies weakness, Denies weight gain and Denies weight loss Eyes Denies loss of vision ENT Denies dizziness and Denies hearing loss Card Denies chest pain, Denies claudication, Denies leg edema, Denies lightheadedness, Denies palpitations, Denies dyspnea, Denies dyspnea on exertion and Denies orthopnea Resp Denies cough, Denies excessive phlegm production, Denies dyspnea, Denies dyspnea on exertion, Denies snoring and Denies wheezing GI Denies abdominal pain, Denies hematochezia, Denies change in bowel habits, Denies nausea and Denies vomiting Denies urinary frequency and Denies dysuria Musc Denies arthralgias, Denies muscle weakness, Denies numbness and Denies other (frequent falls) Skin/Breast Denies nail changes and Denies rash Neuro Denies Abnormal speech present, Denies dizziness, Denies frequent falls, Denies loss of vision, Denies memory loss, Denies numbness and Denies weakness Psych Denies depression and Denies memory loss Endo Denies fatigue and Denies palpitations Mason/Lymph Reports easy bruising and Reports other (anemia) Aller/Immun Denies wheezing Physical Exam Vital Signs: Last Vital Signs Pulse 65 03/27/23 10:37 BP 144/82 H 03/27/23 10:37 BMI result Body Mass Index 23.8 Const General: cooperative, comfortable, no acute distress, alert and awake Nutritional Appearance: average body habitus Orientation/consciousness: patient oriented x3 Limitations: ambulation with cane HEENT Head: Yes normocephalic and Yes atraumatic Neck Neck: Yes trachea midline, Yes supple and Yes no JVD Resp Effort & Inspection: normal respiratory effort Auscultation: clear to auscultation bilaterally Cardio Jugular venous distension: no JVD Palpation: normal PMI Rate: regular rate Rhythm: regular rhythm Heart sounds: S1 normal heart sound present, S2 normal heart sound present, no click, no gallops, no murmurs and no rubs GI Auscultation: normal bowel sounds Skin General skin exam: no rashes or lesions noted Neuro General: patient oriented x3 and no focal motor deficits Speech: No Abnormal speech present Extrem General: Yes no clubbing, cyanosis or edema Office Procedures EKG Details: EKG shows normal sinus rhythm with normal EKG 95803-[id number], Complete Assessment & Plan Assessment & Plan (1) Atypical chest pain: Code(s): R07.89 - Other chest pain Plan: Patient with both exertion non exertional chest pain with symptoms of precordial chest pressure. Symptoms atypical for myocardial ischemia although with limited exercise capacity this is difficult to evaluate. Given her risk factors I would suggest her to undergo a vasodilating myocardial perfusion imaging to assess for myocardial ischemia. Will also suggest an echocardiogram to evaluate for hypertensive heart disease and with LV systolic and diastolic function to evaluate for right ventricular systolic pressure. Further treatment based on the findings. Currently a blood pressure is well optimized. Continue current medical therapy. Further treatment based on the findings of the test results. Will follow up in the clinic after 6 weeks. Thank you for allowing me to partake in her care Coding Level of Care Code New Pt Level 4 (94242) Diagnoses Atypical chest pain R07.89 CPT Codes EKG - CPT: 88552-[id number], Complete ([id number])
[2023-03-27 10:37] VITALS: BP 144/82; PULSE 65; BMI 23.8
== END 2023-03-27 11:21 | disposition home or self-care (01) ==
PROVIDERS: PCP Internal Medicine; Visit Provider Internal Medicine Cardiovascular Disease
DX: R07.89 Other chest pain (principal)
CPT/HCPCS: 93010; 99204

== ENCOUNTER → 2023-03-27 10:22 | Outpatient (BNVA) | payer MEDICARE, MEDICAID, SELFPAY | PROVIDERS: PCP Internal Medicine; Visit Provider Internal Medicine Cardiovascular Disease | DX: R07.2 Precordial pain (principal); R06.02 Shortness of breath; I10 Essential (primary) hypertension | CPT/HCPCS: 93005; 99202 ==

== ENCOUNTER 2023-05-08 11:41 | Outpatient (AMB) | payer MEDICARE, MEDICAID, SELFPAY ==
--- NOTE | 2023-05-08 11:44 | A.OFFVIS_ITS ---
Intake Intake Visit Reasons: 6m follow up Intake Note: Patient presents today for a follow-up Nephrolithiasis & Voiding Dysfunction: Meds- None Allergies to Antibiotic- Penicillin Blood Thinner- None PVR- 0 mL Circular Knife Cutter Machine Required: No Accompanied by: Self / Same As Patient Allergies Penicillins [PENICILLINS] Allergy (Intermediate, Verified 05/08/23 11:50) RASH/HIVES alendronate sodium Allergy (Verified 05/08/23 11:50) Wheezing dexamethasone Allergy (Verified 05/08/23 11:50) Eye Swelling HPI HPI Comments History of Present Illness Details Brisa is a 58-year-old female who presents today to the office for a follow-up. 05/08/23? She is being followed for nephrolithiasis and LUTS of urgency and incomplete bladder emptying.?FU s/p CTAP. She has a history of hypercalciuria and status post hyper parathyroidectomy in November 2020. Past Medical history: Hypertension, rheumatoid arthritis, and chronic back pain.? She has history of pulmonary embolism and was on blood thinner.?She has quit smoking and is on nicotine 20 mg patches The patient is using cane to ambulate due to lower back pain and rheumatoid arthritis and braces for both knees She was last seen by me on 01/21/23.? Discussed timed void every 2-3 hours during that time. Toviaz 4 mg QD was ordered during that time. I reviewed the CT abdomen/pelvis results from 02/20/[address] imaging evidence of urinary tract calculi or hydronephrosis. 05/08/23: Evaluation today?UA?Leukocytes : 15 Cecilia/uL; blood: negative; protein: 1 +; bladder scan PVR: 0 mL. 05/08/23: Plan: Cont Monitor Kidneys OAB - Toviaz 4 mg daily PFSH Medical History Chest pain COPD (chronic obstructive pulmonary disease) Coronary artery calcification seen on CAT scan Dyspnea Hx of hemorrhoids Hypocalcemia Pulmonary emboli Pulmonary nodules Seropositive rheumatoid arthritis Urinary urgency Surgical History History of esophagogastroduodenoscopy (EGD) Hx of colonoscopy Family History Father Cancer Mother Colon cancer HTN (hypertension) Diabetes Breast cancer Brother Lupus HTN (hypertension) Kidney transplanted Sister HTN (hypertension) Cancer Liver transplanted Other FH: cancer FH: mental illness Social History Household Members: None Housing: House Alcohol intake: former Patient Tobacco Use Status: Former Tobacco user Cigarettes Per Day: 5 Years Smoked: 43 Review of Systems Const All systems reviewed & are unremarkable except as noted in HPI and below Reports no additional complaints Eyes Reports no additional complaints ENT Reports no additional complaints Card Denies dyspnea Resp Denies cough and Denies dyspnea GI Reports no additional complaints Reports no additional complaints Musc Reports no additional complaints Skin/Breast Denies rash and Denies unusual bruising Neuro Reports no additional complaints Psych Reports no additional complaints Endo Reports no additional complaints Mason/Lymph Reports no additional complaints Aller/Immun Reports no additional complaints Office Procedures Post Void Residual Post Residual Void Post Void Residual (PVR): 0 48968-Dvoc Void Residual by ultrasound Results AMB Urinalysis, Automated UA Leukoctes 15 Cecilia/uL Last Edit by DANIELA Go on 05/08/23 12:07 UA Nitrite Negative Last Edit by DANIELA Go on 05/08/23 12:07 UA Urobilinogen 0.2 mg/dL Last Edit by DANIELA Go on 05/08/23 12:0 7 UA Protein 30 mg/dL Last Edit by DANIELA Go on 05/08/23 12:07 1+ Naila Rowley 05/08/23 12:07 UA pH 6.0 Last Edit by DANIELA Go on 05/08/23 12:07 UA Blood 0 Art/uL Last Edit by DANIELA Go on 05/08/23 12:07 UA Specific [place] 1.015 Last Edit by DANIELA Go on 05/08/23 12: 07 UA Ketone Negative Last Edit by DANIELA Go on 05/08/23 12:07 UA Bilirubin 0 mg/dL Last Edit by DANIELA Go on 05/08/23 12:07 UA Glucose 0 mg/dL Last Edit by DANIELA Go on 05/08/23 12:07 Results Reviewed Results Reviewed: Laboratory Last Values Urine pH (Auto) 6.0 05/08/23 11:50 Specific [place] (Auto) 1.015 05/08/23 11:50 Urine Protein (Auto) 30 mg/dL 05/08/23 11:50 Glucose (UA)(Auto) 0 mg/dL 05/08/23 11:50 Urine Ketones (Auto) Negative 05/08/23 11:50 Urine Blood (Auto) 0 Art/uL 05/08/23 11:50 Urine Nitrite (Auto) Negative 05/08/23 11:50 Urine Bilirubin (Auto) 0 mg/dL 05/08/23 11:50 Urine Urobilinogen (Auto) 0.2 mg/dL 05/08/23 11:50 Leukocyte Esterase (Auto) 15 Cecilia/uL 05/08/23 11:50 Date of Service: 02/20/23 EXAMINATION: CT ABDOMEN AND PELVIS WITHOUT CONTRAST CLINICAL INFORMATION: Renal calculus. COMPARISON: 09/01/2022 FINDINGS: LUNG BASES: Bronchial amaro are chronically mildly thickened. Mild atelectasis within lung bases. No acute findings in the bases compared to 11/23/2022. Again noted is linear hyperdensity within a left lower lobe pulmonary artery suspected to represent cement embolization from lumbar vertebral augmentation procedure. LIVER: The liver has normal size, shape, and attenuation. No evidence of liver mass. GALLBLADDER AND BILIARY TREE: Gallbladder is without radiopaque stones, wall thickening or pericholecystic fluid. No dilated bile ducts. PANCREAS: Normal. No edema, pancreatic ductal dilatation or mass. SPLEEN: Normal. ADRENAL GLANDS: Normal. KIDNEYS AND URETERS: The kidneys have normal size and cortical thickness. No perinephric edema. No urolithiasis or hydroureteronephrosis. BLADDER: Normal. No calculi or wall thickening. BOWEL AND PERITONEUM: Stomach is unremarkable. No dilated loops of bowel. The appendix is normal. No overt bowel wall thickening or mesenteric fat stranding. No free fluid or pneumoperitoneum. ABDOMINAL WALL: Unremarkable. VASCULATURE: There is atherosclerotic calcification of abdominal aorta and iliac arteries without aneurysm. LYMPH NODES: No pathologic sized lymph nodes in the abdomen or pelvis. No inguinal lymphadenopathy. PELVIC VISCERA: No evidence of uterine or adnexal mass. No pelvic free fluid. MUSCULOSKELETAL: Mild levocurvature of the degenerated lumbar spine and cement augmentation of compression fractures of L2 and L3 vertebra. Mild extrusion of cement through the L2 superior endplate into the central third of the disc space. At L5-S1, there is [id number] loss of the disc space, vacuum disc phenomenon, endplate sclerosis, disc bulge, vertebral osteophyte formation and moderate facet arthropathy. IMPRESSION: * No CT imaging evidence of urinary tract calculi or hydronephrosis. * Compared to 09/01/2022, there has been interval vertebral cement augmentation of compressed L2 and L3 vertebra Assessment & Plan Assessment & Plan (1) Hypercalciuria: Code(s): R82.994 - Hypercalciuria (2) Nephrolithiasis: Code(s): N20.0 - Calculus of kidney (3) Voiding dysfunction: Code(s): N39.8 - Other specified disorders of urinary system (4) Hyperparathyroidism: Comment: 2 parathyroid glands removed 12/05/2020 Was following with Endocrine at [facility] in 2020 Code(s): E21.3 - Hyperparathyroidism, unspecified Plan Cont Monitor Kidneys OAB - Toviaz 4 mg daily Orders: Orders AMB Urinalysis Automated 05/08/23 Z13.9 - Encounter for screening, unspecified AMB Post Void Residual by ultrasound 05/08/23 N39.8 - Other specified disorders of urinary system Patient Instructions: The patient had an opportunity to ask questions regarding treatment plan. All questions were answered. Imaging, Laboratory studies and physical exam results were discussed and reviewed in detail. No major barriers to understanding were identified. The patient expressed understanding and agreement with the above treatment plan.? ? ? The patient is aware they should contact our office by phone for worsening of their current condition or the appearance of new symptoms. Compliance is encouraged with any medications and followup testing that is ordered.? ? ? It is a privilege to be allowed the opportunity to participate in the urologic care of your patient. If you have any questions or concerns regarding treatment for the above conditions please do not hesitate to contact me. The office telephone contact is [phone].? ? ? This note is constructed in part using voice recognition software. While every effort has been made to ensure accuracy protective signal repairer errors may have been included.? ? ? Yours sincerely,? ? ? Jt Witt MD? Coding Level of Care Code Est Pt Level 3 (84451) Diagnoses Hypercalciuria R82.994 Nephrolithiasis N20.0 Voiding dysfunction N39.8 Hyperparathyroidism E21.3 CPT Codes Post Residual Void - PVR CPT Code: 25746-Nzst Void Residual by ultrasound ([id number])
== END 2023-05-08 12:25 | disposition home or self-care (01) ==
PROVIDERS: Visit Provider Urology
DX: R82.994 Hypercalciuria (principal); N20.0 Calculus of kidney; N39.8 Other specified disorders of urinary system; E21.3 Hyperparathyroidism, unspecified
CPT/HCPCS: 99213

== ENCOUNTER → 2023-05-08 11:41 | Outpatient (BNVA) | payer MEDICARE, MEDICAID, SELFPAY | PROVIDERS: Visit Provider Urology | DX: N20.0 Calculus of kidney (principal); N39.8 Other specified disorders of urinary system; R82.994 Hypercalciuria; E21.3 Hyperparathyroidism, unspecified | CPT/HCPCS: 51798; 81003; 99212 ==

== ENCOUNTER 2023-05-09 10:02 | Outpatient (REF) | payer MEDICARE, MEDICAID, SELFPAY ==
[2023-05-09 10:44] LABS: MANUAL DIFF FLAG NO
[2023-05-09 10:55] LABS: Basophils Absolute Auto 0.1 X10*3/uL (0.0-0.2); Basophils Percent Auto 1.7 % (0-2); Eosinophils Absolute Auto 0.2 X10*3/uL (0.0-0.4); Eosinophils Percent Auto 4.6 % (0-4); Hematocrit 38.6 % (37.0-47.0); Hemoglobin 12.6 g/dl (12.0-16.0); Imm Gran Abs Auto 0.01 X10*3/uL (0.00-0.03); Imm Gran Pct Auto 0.2 % (0.0-0.4); Lymphocytes Absolute Auto 1.5 X10*3/uL (1.2-4.9); Lymphocytes Percent Auto 27.8 % (20-40); Mean Corpuscular HGB Conc 32.6 g/dl (31.0-35.0); Mean Corpuscular Hemoglobin 27.3 pg (27.0-33.0); Mean Corpuscular Volume 83.7 fL (80.0-98.0); Monocytes Absolute Auto 0.3 X10*3/uL (0.1-1.2); Monocytes Percent Auto 5.5 % (2-11); Neutrophils Absolute Auto 3.2 x10*3/uL (2.0-8.3); Neutrophils Percent Auto 60.2 % (45-73); Platelet Count 161 X10*3/uL (160-400); Red Blood Count 4.61 X10*6/uL (4.20-5.50); Red Cell Distribution Width 14.7 % (11.0-16.0); White Blood Count 5.3 X10*3/uL (4.8-10.8)
[2023-05-09 11:06] LABS: Alanine Aminotransferase 10 U/L (0-31); Albumin Level 4.5 g/dL (3.5-5.0); Alkaline Phosphatase 59 U/L (39-117); Anion Gap 13 (12-20); Aspartate Amino Transferase 15 U/L (5-31); Bilirubin Total 0.4 mg/dL (0.0-1.0); Blood Urea Nitrogen 14 mg/dL (9-16); Calcium 9.3 mg/dL (8.4-10.2); Carbon Dioxide 26 mmol/L (22-29); Chloride 105 mmol/L (96-108); Cholesterol 197 mg/dL (<200); Estimated Glomerular Filt Rate > 60; Glucose Random 96 mg/dL (60-115); HDL Cholesterol 89 mg/dL (>40); LDL Cholesterol Calculated 94 mg/dL (<100); Potassium 3.8 mmol/L (3.3-5.1); Sodium 140 mmol/L (135-145); Total Protein 7.5 g/dL (6.5-8.0); Triglycerides 74 mg/dL (<150)
[2023-05-09 11:11] LABS: Alanine Aminotransferase 10 U/L (0-31); Aspartate Amino Transferase 15 U/L (5-31); C Reactive Protein 0.13 mg/dL (< or = 0.50); Estimated Glomerular Filt Rate > 60
[2023-05-09 11:20] LABS: Free T4 (Free Thyroxine) 1.25 ng/dL (0.71-1.85); Vitamin D 25-OH Total 65.7 ng/mL (>30)
[2023-05-09 11:33] LABS: Erythrocyte Sedimentation Rate 4 MM/HR (0-20)
== END 2023-05-09 10:03 | disposition home or self-care (01) ==
LOC: HO.10HDL 10:02
PROVIDERS: Internal Medicine Endocrinology, Diabetes & Metabolism; Internal Medicine Rheumatology; Visit Provider Internal Medicine
DX: M05.9 Rheumatoid arthritis with rheumatoid factor, unspecified (principal); I10 Essential (primary) hypertension; K21.9 Gastro-esophageal reflux disease without esophagitis; M81.8 Other osteoporosis without current pathological fracture; N39.498 Other specified urinary incontinence; Z72.0 Tobacco use; Z79.899 Other long term (current) drug therapy
CPT/HCPCS: 36415; 80053; 80061; 82306; 82565; 84439; 84443; 84450; 84460; 85025; 85652; 86140

== ENCOUNTER 2023-06-04 11:01 | Outpatient (AMB) | payer MEDICARE, MEDICAID, SELFPAY ==
--- NOTE | 2023-06-04 11:06 | A.OFFVIS_ITS ---
Intake Vital Signs 06/04/23 11:09 Height 5 ft 3 in Weight 128 lb 1.417 oz BMI 22.7 BP 164/108 H Blood Pressure Location Lt brachial Position Sitting Pulse 84 Pulse Source Pulse Oximeter Temp 97.5 F Temp Source Skin Pulse Oximetry (%) 98 Oxygen Delivery Method Room Air Intake Visit Reasons: RA Intake Note: Patient presents today to follow up on RA. Last seen by Dr. Johnson on 03/07/23. c/o right hand 3th to 5th finger pain, swelling, and stiffness. Reports having to trouble extending fingers. c/o jourdan hip pain causing trouble at night, R > L. Director Of Cardiac Rehabilitation Required: No Accompanied by: Self / Same As Patient Allergies [id number] [From Evenity] Allergy (Severe, Verified 06/04/23 11:14) Hives Penicillins [PENICILLINS] Allergy (Intermediate, Verified 06/04/23 11:08) RASH/HIVES alendronate sodium Allergy (Verified 06/04/23 11:08) Wheezing dexamethasone Allergy (Verified 06/04/23 11:08) Eye Swelling Medication List - Last Reconciled 06/04/23 by Godwin Johnson MD albuterol sulfate 90 mcg/actuation 2 inhalations inhalation QID bisacodyl (Dulcolax (bisacodyl)) 10 mg (2 x 5 mg) PO BEDTIME 30 days buspirone 10 mg PO BID calcium citrate 500 mg (2 x 250 mg calcium) PO BID cetirizine 10 mg PO DAILY diclofenac sodium 1% 1 - 2 grams topical BID dicyclomine 20 mg PO QID famotidine 40 mg PO BID fesoterodine ER (Toviaz) 4 mg PO DAILY 30 days fluticasone propionate 50 mcg/actuation sprays intranasal hydrocortisone 2.5% 1 appl MO BID leflunomide 20 mg PO DAILY lidocaine 5% 2 patches topical DAILY linaclotide (Linzess) 290 mcg PO DAILY lorazepam 1 mg PO BID PRN metoprolol succinate ER 100 mg PO DAILY montelukast 10 mg PO DAILY naloxone 4 mg/actuation 0 sprays intranasal naproxen 500 mg PO BID nifedipine ER 60 mg PO DAILY oxycodone 10 mg PO Q6H PRN oxycodone ER 20 mg PO BID polyethylene glycol 3350 17 grams PO DAILY prednisolone acetate 1% drps ophthalmic (eye) prednisolone sodium phosphate 2 mg PO QID pregabalin 300 mg PO BID rabeprazole 20 mg PO BID simethicone 180 mg PO QID Symbicort 160-4.5 mcg/actuation (budesonide-formoterol) 2 puffs inhalation BID 30 days NS tizanidine 6 mg PO BEDTIME PRN triamcinolone acetonide (Nasacort) 1 spray intranasal DAILY valacyclovir 1,000 mg PO DAILY valsartan-hydrochlorothiazide 320-25 mg 1 tab PO DAILY zolpidem 10 mg PO BEDTIME HPI HPI Comments History of Present Illness Details The patient returns for evaluation of her rheumatoid arthritis and osteoarthritis. She remains on leflunomide 20 mg daily, OxyContin, Lyrica, tizanidine p.r.n., naproxen 500 b.i.d. p.r.n. and tizanidine at bedtime. She reports that there was some low back pain radiating to the buttock and down the leg. This is known to be sciatica. It was worse before but is somewhat better now but still present. She also gets stiffness and pain around the 2nd and 3rd fingers in the right hand. There was no injury involved. She was treated with Evenity monthly injections for her osteoporosis. Unfortunately she developed an allergy to it so it had to be stopped. I am not sure what the next plan would be for treatment of her osteoporosis. [facility], [facility] Medical History Chest pain COPD (chronic obstructive pulmonary disease) Coronary artery calcification seen on CAT scan Dyspnea Hx of hemorrhoids Hypocalcemia Pulmonary emboli Pulmonary nodules Seropositive rheumatoid arthritis Urinary urgency Surgical History History of esophagogastroduodenoscopy (EGD) Hx of colonoscopy Family History Father Cancer Mother Colon cancer HTN (hypertension) Diabetes Breast cancer Brother Lupus HTN (hypertension) Kidney transplanted Sister HTN (hypertension) Cancer Liver transplanted Other FH: cancer FH: mental illness Social History Household Members: None Housing: House Alcohol intake: former Patient Tobacco Use Status: Former Tobacco user Cigarettes Per Day: 5 Years Smoked: 43 Review of Systems Const Details: Some fatigue and low energy at times. Negative for appetite change, weight change, fever, chills, malaise Eyes Details: Negative for vision change, dry eyes,headaches and dizziness ENT Details: Negative for hearing change, tinnitus, oral ulcer, nose bleeds and oral dryness. Card Details: Negative chest pain, edema and syncope Resp Details: Negative for SOB, cough and wheezing GI Details: Negative indigestion/heartburn, nausea, abdominal pain, bowel changes, diarrhea, constipation and bloody stool. Psych Details: Negative for anxiety, depression and stress Endo Details: Negative for polyuria and polydypsia Mason/Lymph Details: Negative for excessive bruising or bleeding. Physical Exam Vital Signs: Last Vital Signs Temp 97.5 F 06/04/23 11:09 Pulse 84 06/04/23 11:09 BP 164/108 H 06/04/23 11:09 Pulse Ox 98 06/04/23 11:09 Oxygen Delivery Method Room Air 06/04/23 11:09 BMI result Body Mass Index 22.7 APPEARANCE: Patient in no acute distress EXTREMITIES: No edema, no calf tenderness, normal peripheral pulses. JOINT EXAM: Cervical Spine:? Full range of motion with mild pain at the extremes.? Slight tenderness to palpation of the cervical spinal muscles. Thoracic Spine:? No tenderness on palpation. Lumbar Spine: Mild pain with flexion at 60 degrees. There is spinal and paraspinal muscle tenderness. Multiple small healed scars. Hands: LEFT:? Slight tenderness but no swelling in the MCP joints. There is bony enlargement of the 2nd through 4th PIP joints. These there is mild tenderness in those joints, perhaps more prominent at the 2nd PIP. There is mild tenderness and bony enlargement at the 2nd and 3rd DIPs.? No erythema or increased warmth. No thenar atrophy or sensory loss. ? RIGHT: Mild pain with range of motion in the 2nd and 3rd fingers. There is slight tenderness but no swelling in the MCP joints. There is mild bony enlargement of the thumb IP and in all the PIP joints. The 2nd 3rd have mild tenderness. Their range of motion is slightly diminished. There is mild bony enlargement and tenderness at the 2nd and 5th distal interphalangeal joints. No sensory loss or thenar atrophy. Wrists:? Right: Slight pain with flexion extension at 75 degrees with some slight tenderness but no swelling. Left: Normal pain-free range of motion without tenderness, swelling, increased warmth or erythema. Elbows: LEFT: Full range of motion without tenderness, swelling, increased warmth or erythema. ? RIGHT:? Full range of motion without tenderness, swelling, increased warmth or erythema. Shoulders: Full range of motion without pain. No tenderness, weakness, swelling, increased warmth or erythema. Hip bursa:? Mild trochanteric tenderness. Knees:? Normal pain-free range of motion with mild patellofemoral crepitus. There is slight medial compartment tenderness without effusion, soft tissue swelling, increased warmth or erythema.? Ankles:? Full motion with mild tenderness. No? swelling, increased warmth or erythema.? Tenderness reported to palpation throughout. ? Feet: Diffuse tenderness over the heel, instep, MTP region and toes. However there is no swelling, increased warmth or erythema.? Tender points: Tenderness to digital palpation at the occiput, trapezius, second rib, lateral epicondyle, knees, greater trochanter and gluteal area bilaterally. ? Results Reviewed Results Reviewed: Laboratory Tests 05/09/23 10:15 WBC 5.3 Hgb 12.6 ESR 4 Creatinine 0.73 AST 15 ALT 10 C-Reactive Protein 0.13 Assessment & Plan Assessment & Plan (1) Osteoarthritis of hands, bilateral: Code(s): M19.041 - Primary osteoarthritis, right hand; M19.042 - Primary osteoarthritis, left hand (2) nursing home current use of immunosuppressive drug: Code(s): Z79.899 - Other usp (current) drug therapy (3) Fibromyalgia: Code(s): M79.7 - Fibromyalgia (4) Osteoporosis: Comment: fragility fractures requiring kyphoplasty 10/08/2022. DEXA from September 2021 with T-score of-2.6 in the femoral neck. Patient has a history of hyper parathyroidism and underwent surgery to remove 2 parathyroid glands 12/05/2020. Previously following with [facility] endocrine. New referral placed [facility] [place] endocrine Code(s): M81.0 - Age-related osteoporosis without current pathological fracture Qualifiers: Presence of current pathological fracture: with current pathological fracture (5) Seropositive rheumatoid arthritis: Comment: Methotrexate: prior to 2017- October 2021 Leflunomide: October 2022 to present Code(s): M05.9 - Rheumatoid arthritis with rheumatoid factor, unspecified Plan The patient is complaining quite a bit about her right hand pain. This is mostly about the 2nd 3rd fingers where she has findings of bony enlargement for the most part suggesting osteoarthritis. The blood work again looks good with normal acute phase reactants suggesting that she does not have much in the way of active inflammatory disease. Additionally, she does have many tender points consistent with fibromyalgia. She has been using some topical diclofenac on these fingers without much improvement. I told her I thought the findings in the hand were more consistent with osteoarthritis and that we did not have additional treatment to offer for her at the present time. She is already on multiple medications for pain and fibromyalgia so that could be playing into her discomfort. I recommended some heat on the area and gentle stretching every day. We will continue with the leflunomide as above as the inflammatory arthritis seems controlled with current treatment adn the blood work looks good. She will need to follow through with endocrine evaluation for her osteoporosis at this point. Follow-up at 3 months with blood work before the visit is recommended. Orders: Orders Creatinine Today M05.9 - Rheumatoid arthritis with rheumatoid factor, unspecified, Z79.899 - Other usp (current) drug therapy Erythrocyte Sedimentation Rate Today M05.9 - Rheumatoid arthritis with rheumatoid factor, unspecified Alanine Aminotransferase Today M05.9 - Rheumatoid arthritis with rheumatoid factor, unspecified, Z79.899 - Other senior human resources representative (current) drug therapy C Reactive Protein Today M05.9 - Rheumatoid arthritis with rheumatoid factor, unspecified Complete Blood Count Auto Diff Today M05.9 - Rheumatoid arthritis with rheumatoid factor, unspecified, Z79.899 - Other senior human resources representative (current) drug therapy Aspartate Amino Transferase Today M05.9 - Rheumatoid arthritis with rheumatoid factor, unspecified, Z79.899 - Other senior human resources representative (current) drug therapy Coding Level of Care Code Est Pt Level 4 (37531) Diagnoses Osteoarthritis of hands, bilateral M19.041; M19.042 career development facilitator current use of immunosuppressive drug Z79.899 Fibromyalgia M79.7 Osteoporosis M81.0 Presence of current pathological fracture: with current pathological fracture Seropositive rheumatoid arthritis M05.9
[2023-06-04 11:09] VITALS: BP 164/108; PULSE 84; TEMP 36.4; O2SAT 98; BMI 22.7
== END 2023-06-04 11:57 | disposition home or self-care (01) ==
PROVIDERS: PCP Internal Medicine; Visit Provider Internal Medicine Rheumatology
DX: M19.041 Primary osteoarthritis, right hand (principal); M19.042 Primary osteoarthritis, left hand; Z79.899 Other long term (current) drug therapy; M79.7 Fibromyalgia; M81.0 Age-related osteoporosis without current pathological fracture; M05.79 Rheumatoid arthritis with rheumatoid factor of multiple sites without organ or systems involvement
CPT/HCPCS: 99214

== ENCOUNTER → 2023-06-04 11:01 | Outpatient (BNVA) | payer MEDICARE, MEDICAID, SELFPAY | PROVIDERS: PCP Internal Medicine; Visit Provider Internal Medicine Rheumatology | DX: M19.041 Primary osteoarthritis, right hand (principal); M19.042 Primary osteoarthritis, left hand; M79.7 Fibromyalgia; M81.0 Age-related osteoporosis without current pathological fracture; M05.9 Rheumatoid arthritis with rheumatoid factor, unspecified; Z79.899 Other long term (current) drug therapy | CPT/HCPCS: 99212 ==

== ENCOUNTER 2023-06-05 13:39 | Outpatient (AMB) | payer MEDICARE, MEDICAID, SELFPAY ==
[2023-06-05 13:44] VITALS: BP 204/110; PULSE 106; BMI 22.5
--- NOTE | 2023-06-05 13:44 | HO.NEPHOV_ITS ---
HPI HPI Comments History of Present Illness Details Brisa was seen in the office for her uncontrolled hypertension. She has rheumatological issues and is followed by her retail area manager. She has history of parathyroidectomy with normalization of serum calcium and blood pressure for a while but lately her blood pressure has not been very controlled. She also has had pulmonary embolism and had been on anticoagulation. She has a brother who developed ESRD due to lupus nephritis. She had denies chest pain, shortness of breath, nausea, vomiting, diarrhea, proximal nocturnal dyspnea or orthopnea. She claims to be compliant with her diet and medications. Her renal functions had been stable. [facility] Medical History Chest pain COPD (chronic obstructive pulmonary disease) Coronary artery calcification seen on CAT scan Dyspnea Hx of hemorrhoids Hypocalcemia Pulmonary emboli Pulmonary nodules Seropositive rheumatoid arthritis Urinary urgency Surgical History History of esophagogastroduodenoscopy (EGD) Hx of colonoscopy Family History Father Cancer Mother Colon cancer HTN (hypertension) Diabetes Breast cancer Brother Lupus HTN (hypertension) Kidney transplanted Sister HTN (hypertension) Cancer Liver transplanted Other FH: cancer FH: mental illness Household Members: None Housing: House Alcohol intake: former Patient Tobacco Use Status: Former Tobacco user Cigarettes Per Day: 5 Years Smoked: 43 Vital Signs 06/05/23 13:44 06/05/23 14:31 Height 5 ft 3 in Weight 127 lb 2 oz BMI 22.5 BP 204/110 H 160/100 H Blood Pressure Location Rt brachial Position Sitting Pulse 106 H Pulse Source Pulse Oximeter Physical Exam Vital Signs: Last Vital Signs Pulse 106 H 06/05/23 13:44 BP 160/100 H 06/05/23 14:31 BMI result Body Mass Index 22.5 Const General: comfortable and no acute distress Orientation/consciousness: patient oriented x3 HEENT Head: Yes normocephalic Mouth: Normal oral and palatal mucosa present Eyes EOM: EOMs intact bilaterally Neck Neck: Yes supple Resp Auscultation: clear to auscultation bilaterally Cardio Jugular venous distension: no JVD Rate: regular rate GI Palpation (GI): Soft to palpation Auscultation: normal bowel sounds General: Yes no CVA tenderness Back/Spine/Pelvis Back: no CVA tenderness Skin General skin exam: no rashes or lesions noted Neuro General: patient oriented x3 and moves all extremities Extrem General: Yes no pedal edema Assessment & Plan Assessment & Plan (1) Nephrolithiasis: Code(s): N20.0 - Calculus of kidney (2) Hypertension: Code(s): I10 - Essential (primary) hypertension Qualifiers: Hypertension type: primary hypertension Qualified Code(s): I10 - Essential (primary) hypertension Plan Brisa has longstanding hypertension and is on multiple antihypertensive medications. Blood pressure had been fairly well controlled but lately is quite labile. She has no history of known retinopathy, left ventricular hypertrophy, proteinuria or renal dysfunction. She is on multiple antihypert ensive medications . she had hypercalcemia with the primary hyperparathyroidism and had undergone parathyroid surgery. She should be on a low-sodium diet. I plan to check a renin, aldosterone, Doppler of her renal arteries, antiphospholipid antibody, urinalysis, urine protein creatinine ratio among other workup. She is going to be followed up for ongoing monitoring and continued care. All her questions were answered. Time spent retrieving data, documentation and patient encounter 33 minutes. Coding Level of Care Code Est Pt Level 4 (77698) Diagnoses Nephrolithiasis N20.0 Primary hypertension I10 Hypertension type: primary hypertension
[2023-06-05 14:31] VITALS: BP 160/100
== END 2023-06-05 14:41 | disposition home or self-care (01) ==
PROVIDERS: PCP Internal Medicine; Visit Provider Internal Medicine Nephrology
DX: N20.0 Calculus of kidney (principal); I10 Essential (primary) hypertension
CPT/HCPCS: 99214

== ENCOUNTER → 2023-06-05 13:39 | Outpatient (BNVA) | payer MEDICARE, MEDICAID, SELFPAY | PROVIDERS: PCP Internal Medicine; Visit Provider Internal Medicine Nephrology | DX: N20.0 Calculus of kidney (principal); I10 Essential (primary) hypertension | CPT/HCPCS: 99212 ==

== ENCOUNTER 2023-06-12 13:45 | Outpatient (AMB) | payer MEDICARE, MEDICAID, SELFPAY ==
[2023-06-12 14:03] VITALS: BP 120/74; PULSE 72; BMI 22.4
--- NOTE | 2023-06-12 14:03 | HO.NEPHOV ---
HPI HPI Comments History of Present Illness Details Brisa was seen in the office for her uncontrolled hypertension. She has rheumatoid arthritis and is followed by her bottom painter. She has history of parathyroidectomy with normalization of serum calcium and blood pressure for a while but lately her blood pressure has not been very controlled. She also has had pulmonary embolism and had been on anticoagulation. She had a brother who developed ESRD due to lupus nephritis. She had denies chest pain, shortness of breath, nausea, vomiting, diarrhea, proximal nocturnal dyspnea or orthopnea. She claims to be compliant with her diet and medications. Her renal functions had been stable. At the last visit, her medications were adjusted and blood pressure is better controlled. [facility] Medical History Chest pain COPD (chronic obstructive pulmonary disease) Coronary artery calcification seen on CAT scan Dyspnea Hx of hemorrhoids Hypocalcemia Pulmonary emboli Pulmonary nodules Seropositive rheumatoid arthritis Urinary urgency Surgical History History of esophagogastroduodenoscopy (EGD) Hx of colonoscopy Family History Father Cancer Mother Colon cancer HTN (hypertension) Diabetes Breast cancer Brother Lupus HTN (hypertension) Kidney transplanted Sister HTN (hypertension) Cancer Liver transplanted Other FH: cancer FH: mental illness Household Members: None Housing: House Alcohol intake: former Patient Tobacco Use Status: Former Tobacco user Cigarettes Per Day: 5 Years Smoked: 43 Vital Signs 06/12/23 14:03 Height 5 ft 3 in Weight 126 lb 8 oz BMI 22.4 BP 120/74 Blood Pressure Location Lt brachial Position Sitting Pulse 72 Pulse Source Pulse Oximeter Physical Exam Vital Signs: Last Vital Signs Pulse 72 06/12/23 14:03 BP 120/74 06/12/23 14:03 BMI result Body Mass Index 22.4 Const General: comfortable and no acute distress Orientation/consciousness: patient oriented x3 HEENT Head: Yes normocephalic Mouth: Normal oral and palatal mucosa present Eyes EOM: EOMs intact bilaterally Neck Neck: Yes supple Resp Auscultation: clear to auscultation bilaterally Cardio Jugular venous distension: no JVD Rate: regular rate GI Palpation (GI): Soft to palpation Auscultation: normal bowel sounds General: Yes no CVA tenderness Back/Spine/Pelvis Back: no CVA tenderness Skin General skin exam: no rashes or lesions noted Neuro General: patient oriented x3 and moves all extremities Extrem General: Yes no pedal edema Assessment & Plan Assessment & Plan (1) Seropositive rheumatoid arthritis: Comment: Methotrexate: prior to 2018- October 2021 Leflunomide: October 2022 to present Code(s): M05.9 - Rheumatoid arthritis with rheumatoid factor, unspecified (2) Proteinuria: Code(s): R80.9 - Proteinuria, unspecified Qualifiers: Proteinuria type: other Qualified Code(s): R80.8 - Other proteinuria (3) Hypertension: Code(s): I10 - Essential (primary) hypertension Qualifiers: Hypertension type: primary hypertension Qualified Code(s): I10 - Essential (primary) hypertension Plan Brisa has longstanding hypertension and is on multiple antihypertensive medications. Blood pressure is better controlled since last visit. She has no history of known retinopathy, left ventricular hypertrophy, proteinuria or renal dysfunction. She is on multiple antihypertensive medications . she had hypercalcemia with the primary hyperparathyroidism and had undergone parathyroid surgery. She should be on a low-sodium diet. I plan to check a renin, aldosterone, Doppler of her renal arteries, antiphospholipid antibody, urinalysis, urine protein creatinine ratio among other workup with time if needed. She is going to be followed up for ongoing monitoring and continued care. All her questions were answered. Time spent retrieving data, documentation and patient encounter 23 minutes Orders: Orders Anti DNA DS Antibody 06/12/23 I10 - Essential (primary) hypertension, M05.9 - Rheumatoid arthritis with rheumatoid factor, unspecified, R80.9 - Proteinuria, unspecified Complement C3 06/12/23 I10 - Essential (primary) hypertension, M05.9 - Rheumatoid arthritis with rheumatoid factor, unspecified, R80.9 - Proteinuria, unspecified Protein Creatinine Ratio, Ur 06/12/23 I10 - Essential (primary) hypertension, M05.9 - Rheumatoid arthritis with rheumatoid factor, unspecified, R80.9 - Proteinuria, unspecified Complement C4 06/12/23 I10 - Essential (primary) hypertension, M05.9 - Rheumatoid arthritis with rheumatoid factor, unspecified, R80.9 - Proteinuria, unspecified UA and rflx microscopic 06/12/23 I10 - Essential (primary) hypertension, M05.9 - Rheumatoid arthritis with rheumatoid factor, unspecified, R80.9 - Proteinuria, unspecified Coding Level of Care Code Est Pt Level 3 (49976) Diagnoses Seropositive rheumatoid arthritis M05.9 Other proteinuria R80.8 Proteinuria type: other Primary hypertension I10 Hypertension type: primary hypertension
== END 2023-06-12 15:01 | disposition home or self-care (01) ==
PROVIDERS: PCP Internal Medicine; Visit Provider Internal Medicine Nephrology
DX: I10 Essential (primary) hypertension (principal); M05.9 Rheumatoid arthritis with rheumatoid factor, unspecified; Z79.631 Long term (current) use of antimetabolite agent; E89.2 Postprocedural hypoparathyroidism; R80.8 Other proteinuria; Z84.1 Family history of disorders of kidney and ureter
CPT/HCPCS: 99214

== ENCOUNTER → 2023-06-12 13:45 | Outpatient (BNVA) | payer MEDICARE, MEDICAID, SELFPAY | PROVIDERS: PCP Internal Medicine; Visit Provider Internal Medicine Nephrology | DX: E83.51 Hypocalcemia (principal); R80.8 Other proteinuria; M05.9 Rheumatoid arthritis with rheumatoid factor, unspecified; I10 Essential (primary) hypertension | CPT/HCPCS: 99212 ==

== ENCOUNTER 2023-07-17 12:24 | Outpatient (AMB) | payer MEDICARE, MEDICAID, SELFPAY ==
--- NOTE | 2023-07-17 12:28 | A.OFFVIS_ITS ---
Intake Intake Visit Reasons: 8w follow up Intake Note: Patient presents today via telephone for afollow-up on Nephrolithiasis & Voiding Dysfunction: Meds- Toviaz Allergies to Antibiotic- Penicillin Blood Thinner- None L Electronic Warfare Technician Required: No Accompanied by: Self / Same As Patient Allergies romosozumab-[id number] [From Evenity] Allergy (Severe, Verified 07/25/23 13:50) Hives Penicillins [PENICILLINS] Allergy (Intermediate, Verified 07/25/23 13:50) RASH/HIVES alendronate sodium Allergy (Verified 07/25/23 13:50) Wheezing dexamethasone Allergy (Verified 07/25/23 13:50) Eye Swelling HPI HPI Comments History of Present Illness Details Brisa is a 58-year-old female who presents today to the office for a Telehealth follow-up. Video attempted 07/17/23? She is being followed for nephrolithiasis and LUTS of urgency and incomplete bladder emptying.? The pt states she is doing well, denies dysuria or hematuria or flank pain. She has a history of hypercalciuria and status post hyper parathyroidectomy in November 2020. Past Medical history: Hypertension, rheumatoid arthritis, and chronic back pain.? She has history of pulmonary embolism and was on blood thinner.?She has quit smoking and is on nicotine 20 mg patches The patient is using cane to ambulate due to lower back pain and rheumatoid arthritis and braces for both knees OAB therapy plan includes behaviorial modification-- timed void every 2-3 hours, Toviaz 4 mg QD Review of chart: Results: CT abdomen/pelvis --- 02/20/[address] imaging evidence of urinary tract calculi or hydronephrosis. 07/17/23: Plan: Cont Monitor Kidneys OAB - Toviaz 4 mg daily, Timed voiding. FU in 9 months, renal US prior [facility] Medical History Hypocalcemia Coronary artery calcification seen on CAT scan Dyspnea Pulmonary nodules COPD (chronic obstructive pulmonary disease) Chest pain Pulmonary emboli Urinary urgency Hx of hemorrhoids Seropositive rheumatoid arthritis Surgical History History of esophagogastroduodenoscopy (EGD) Hx of colonoscopy Family History Father Cancer Mother Colon cancer HTN (hypertension) Diabetes Breast cancer Brother Lupus HTN (hypertension) Kidney transplanted Sister HTN (hypertension) Cancer Liver transplanted Other FH: cancer FH: mental illness Social History Household Members: None Housing: House Alcohol intake: former Patient Tobacco Use Status: Former Tobacco user Cigarettes Per Day: 5 Years Smoked: 43 Assessment & Plan Assessment & Plan (1) Hypercalciuria: Code(s): R82.994 - Hypercalciuria (2) Nephrolithiasis: Code(s): N20.0 - Calculus of kidney (3) Voiding dysfunction: Code(s): N39.8 - Other specified disorders of urinary system (4) Hyperparathyroidism: Comment: 2 parathyroid glands removed 12/05/2020 Was following with Endocrine at [facility] in 2020 Code(s): E21.3 - Hyperparathyroidism, unspecified Plan Cont Monitor Kidneys OAB - Toviaz 4 mg daily, Timed voiding. FU in 9 months, renal US prior Patient Instructions: The patient had an opportunity to ask questions regarding treatment plan. All questions were answered. Imaging, Laboratory studies and physical exam results were discussed and reviewed in detail. No major barriers to understanding were identified. The patient expressed understanding and agreement with the above treatment plan. The patient is aware they should contact our office by phone for worsening of their current condition or the appearance of new symptoms. Compliance is encouraged with any medications and followup testing that is ordered. It is a privilege to be allowed the opportunity to participate in the urologic care of your patient. If you have any questions or concerns regarding treatment for the above conditions please do not hesitate to contact me. The office telephone contact is [phone]. This note is constructed in part using voice recognition software. While every effort has been made to ensure accuracy toll ticket clerk errors may have been included. Yours sincerely, Jt Witt MD Telehealth Telehealth Location of provider rendering services: practice address Location of patient: address on file Patient Identification confirmed using: Name, : Yes Telehealth method: voice only Patient verbally consented to treatment: Yes Patient verbally consented to billing insurance company: Yes Patient informed of any privacy concerns related to visit: Yes Minutes spent on Phone/Video with Pt.: 19 Coding Level of Care Code Tele Est Pt Level 4 (49229) Diagnoses Hypercalciuria R82.994 Nephrolithiasis N20.0 Voiding dysfunction N39.8 Hyperparathyroidism E21.3
== END 2023-07-17 16:30 | disposition home or self-care (01) ==
LOC: HO.HUSH 12:24
PROVIDERS: PCP Internal Medicine; Visit Provider Urology
DX: R82.994 Hypercalciuria (principal); N20.0 Calculus of kidney; N39.8 Other specified disorders of urinary system; E21.3 Hyperparathyroidism, unspecified
CPT/HCPCS: 99442

== ENCOUNTER → 2023-07-17 12:24 | Outpatient (BNVA) | payer MEDICARE, MEDICAID, SELFPAY | PROVIDERS: PCP Internal Medicine; Visit Provider Urology ==

== ENCOUNTER 2023-07-18 13:09 | Outpatient (AMB) | payer MEDICARE, MEDICAID, SELFPAY ==
[2023-07-18 13:29] VITALS: BP 142/80; PULSE 87; O2SAT 98; BMI 22.4
--- NOTE | 2023-07-18 13:29 | A.OFFVIS_ITS ---
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 After the procedure the patient developed significant shortness of breath and chest discomfort. She did undergo a CTA at [facility] which I personally reviewed demonstrating a left pulmonary cement emboli. The patient was treated initially was her outcome for about a month. Then she was taking off. She has noticed increasing shortness of breath with minimal activity moderate severity. Also developing chest discomfort. She continues to smoke cigarettes. We did talk about the importance of her quitting. We did talk about the findings on the CT scan also demonstrating pulmonary nodules that need close follow-up. And a brief walking oximetry the patient maintain a pulse ox of 98% which is reassuring and the heart rate was stable. Will plan to get blood works including a D-dimer at this time. If the D-dimer is elevated will go ahead and request a CTA to rule out thromboembolic disease. We know that that cement can be thrombogenic and can increase the risk of clotting. 01/24/2023 the patient is here for pulmona ry follow-up visit. Overall the patient has been doing well. She is working on quitting smoking altogether. She is using the patch. The patient still having some dyspnea on exertion mild in severity. Overall doing better. She did have blood work during the last visit and she did have an elevated D-dimer therefore she underwent a CTA. She still had the area of residual cement within the pulmonary vasculature on the left hemithorax but otherwise no evidence of any thromboembolic disease. The patient's ground-glass opacities have subsided the patient also has pulmonary nodules some of them have improved as well. She will need some degree follow-up for the pulmonary nodule specially with high risk with her smoking history. She also has significant coronary artery disease that is described as moderately severe calcifications of the coronary arteries. Patient does have dyspnea on exertion and has complained of some chest pressure at times. Therefore I will have her undergo an EKG and also a stress test. Patient may benefit from Cardiology consultation if any abnormalities noted. 07/18/2023 the patient is here for a pulmonary follow-up visit. Overall the patient has been doing fairly well from a respiratory status. She does complaint of back pain. Been bothering her significant amount. She is going to be evaluated for sciatica soon. In the meantime we did review her CT scan of the chest that she had back in November 2022 demonstrating the persistence amount of her vessels secondary to her kyphoplasty. In addition to that underlying pu lmonary nodules. She is a high-risk patient because of her smoking history. The patient will need to have a repeat CT scan in a year from her last 1 was be November 2023. she will continue with current respiratory therapy. Will follow-up in December after her CT scan. [facility] Medical History Chest pain COPD (chronic obstructive pulmonary disease) Coronary artery calcification seen on CAT scan Dyspnea Hx of hemorrhoids Hypocalcemia Pulmonary emboli Pulmonary nodules Seropositive rheumatoid arthritis Urinary urgency Surgical History History of esophagogastroduodenoscopy (EGD) Hx of colonoscopy Family History Father Cancer Mother Colon cancer HTN (hypertension) Diabetes Breast cancer Brother Lupus HTN (hypertension) Kidney transplanted Sister HTN (hypertension) Cancer Liver transplanted Other FH: cancer FH: mental illness Social History Household Members: None Housing: House Alcohol intake: former Patient Tobacco Use Status: Former Tobacco user Cigarettes Per Day: 5 Years Smoked: 43 Review of Systems Const Denies fatigue, Denies fever(s), Denies night sweats, Denies poor appetite and Denies weight loss Eyes Details: glasses Reports requires corrective lenses ENT Denies dysphagia Card Denies chest pain and Reports dyspnea on exertion Resp Reports cough and Reports dyspnea on exertion GI Denies dysphagia Musc Reports abnormal gait, Reports back pain and Reports myalgias Skin/Breast Denies pruritus, Denies lesions, Denies rash and Denies jaundice Neuro Denies Abnormal speech present and Reports abnormal gait Psych Reports mood swings Endo Denies fatigue Mason/Lymph Denies as per HPI, Denies easy bleeding and Denies easy bruising Physical Exam Vital Signs: Last Vital Signs Pulse 87 07/18/23 13:29 BP 142/80 H 07/18/23 13:29 Pulse Ox 98 07/18/23 13:29 Oxygen Delivery Method Room Air 07/18/23 13:29 BMI result Body Mass Index 22.4 Const General: cooperative, no acute distress, alert and awake Nutritional Appearance: well nourished Orientation/consciousness: patient oriented x3 Limitations: no limitations HEENT Head: Yes normal to inspection and Yes atraumatic Neck Neck: Yes normal visual inspection, Yes full ROM and Yes no lymphadenopathy Chest Chest palpation & inspection: normal inspection of the chest Resp Effort & Inspection: normal respiratory effort and able to speak in complete sentences Auscultation: no rhonchi, no wheezes and diminished lung sounds Cardio Rate: regular rate Rhythm: regular rhythm GI Palpation (GI): Soft to palpation General: Yes no CVA tenderness Back/Spine/Pelvis Back: no CVA tenderness Neuro General: patient oriented x3 and moves all extremities Speech: No Abnormal speech present Extrem General: Yes normal to inspection Assessment & Plan Assessment & Plan (1) Pulmonary emboli: Code(s): I26.99 - Other pulmonary embolism without acute cor pulmonale Qualifiers: Pulmonary embolism type: unspecified Chronicity: chronic Acute cor pulmonale presence: unspecified Qualified Code(s): I27.82 - Chronic pulmonary embolism (2) Chest pain: Code(s): R07.9 - Chest pain, unspecified Qualifiers: Chest pain type: unspecified Qualified Code(s): R07.9 - Chest pain, unspecified (3) COPD (chronic obstructive pulmonary disease): Code(s): J44.9 - Chronic obstructive pulmonary disease, unspecified Qualifiers: COPD type: chronic bronchitis Chronic bronchitis type: simple Qualified Code(s): J41.0 - Simple chronic bronchitis (4) Pulmonary nodules: Code(s): R91.8 - Other nonspecific abnormal finding of lung field (5) Coronary artery calcification seen on CAT scan: Code(s): I25.10 - Atherosclerotic heart disease of cahto coronary artery without angina pectoris Plan continue Symbicort BISI as needed continue EKG Smoking cessation CT chest 11/2023 F/U 6 months Orders: Orders CT chest wo IV con 11/27/23 R91.8 - Other nonspecific abnormal finding of lung field Medications: New prednisone PO daily; Take 2 tabs daily x 5 days, then 1 tab daily x 5 days 10 days 15 tabs 0RF Coding Level of Care Code Est Pt Level 4 (57041) Diagnoses Chronic pulmonary embolism, unspecified pulmonary embolism type, unspecified whether acute cor pulmonale present I27.82 Pulmonary embolism type: unspecified Chronicity: chronic Acute cor pulmonale presence: unspecified Chest pain, unspecified type R07.9 Chest pain type: unspecified Simple chronic bronchitis J41.0 COPD type: chronic bronchitis Chronic bronchitis type: simple Pulmonary nodules R91.8 Coronary artery calcification seen on CAT scan I25.10 Time Spent (min) 17
== END 2023-07-18 13:57 | disposition home or self-care (01) ==
PROVIDERS: PCP Internal Medicine; Visit Provider Hospitalist
DX: I27.82 Chronic pulmonary embolism (principal); R07.9 Chest pain, unspecified; J41.0 Simple chronic bronchitis; R91.8 Other nonspecific abnormal finding of lung field; I25.10 Atherosclerotic heart disease of native coronary artery without angina pectoris
CPT/HCPCS: 99214

== ENCOUNTER → 2023-07-18 13:09 | Outpatient (BNVA) | payer MEDICARE, MEDICAID, SELFPAY | PROVIDERS: PCP Internal Medicine; Visit Provider Hospitalist | DX: I27.82 Chronic pulmonary embolism (principal); I25.10 Atherosclerotic heart disease of native coronary artery without angina pectoris; R91.8 Other nonspecific abnormal finding of lung field; J41.0 Simple chronic bronchitis; R07.9 Chest pain, unspecified | CPT/HCPCS: 99212 ==

== ENCOUNTER → 2023-07-19 08:00 | Outpatient (REF) | payer MEDICARE, MEDICAID, SELFPAY ==
--- NOTE | ~2023-07-19 | NM_ITS ---
Myocardial perfusion study Indication: Atherosclerotic heart disease to evaluate for myocardial ischemia Technique: The patient was brought in for a Lexiscan perfusion study on 07/19/2023. Patient performed low-level exercise and was injected 0.4 mg of Lexiscan intravenously. Within a minute of injection, 25 mCi of sestamibi was given intravenously. Images were obtained using the SPECT gamma camera interlaced with the gating device. Images were obtained in supine position. Resting perfusion study was performed on 07/23/2023. Patient was administered 25 mCi of sestamibi intravenously at rest. Images were then obtained in supine position. Images obtained with and without CT attenuation. Total DLP 75 mGy-cm. Images were processed with the software and compared side to side in short axis, horizontal long axis and vertical long axis views. Findings: The stress perfusion study showed non attenuated images show normal uptake of radiotracer in all segments of LV myocardium. Attenuation corrected images show mildly reduced uptake in the apex of the LV myocardium. The gated study shows normal LV systolic function with calculated LVEF of 56%. LV cavity is normal in size. The gated study shows normal systolic wall thickening and contraction of segments. Resting study shows no change in perfusion pattern compared to stress perfusion study. Gating at rest reveals normal systolic wall motion with ejection fraction at 57%. The findings are consistent with normal myocardial perfusion. NM/NM cardiolite stress test Impression: 1. Myocardial perfusion imaging study shows normal myocardial perfusion 2. Gated LVEF is 56% 3. Transient ischemic dilatation not present EKG is nondiagnostic for ischemia
--- NOTE | 2023-07-19 08:02 | CA_ITS ---
Transthoracic Echocardiogram Patient (Last, First, Middle): Brisa Romero I Gender: Female Date of : 1965 Age: 58 Procedure Date: 07/19/2023 Procedure Type: Transthoracic Echocardiogram Location: OP Height: 160.02 cm Weight: 58.06 kg BSA: 1.60 m2 Heart Rate: bpm BP: 160 / 96 mmHg Enrollment Consultant: TO Referring MD: Pito Sahni MD Symptoms: I25.10 - Atherosclerotic heart disease of [place] coronary artery without... Study Quality: Adequate ECG Rhythm: Sinus Conclusions: - The left ventricular systolic function is normal. The calculated ejection fraction is 65% by biplane method. - No obvious valvular pathology seen on this study. Findings Left Ventricle Normal left ventricular cavity size. The left ventricular systolic function is normal. The calculated ejection fraction is 65% by biplane method. There is no evidence of regional wall motion abnormalities. Diastolic function is normal for age. LV peak GLS -21.3%. Right Ventricle Normal right ventricular cavity size and systolic function. Atria Both atria are normal in size. Aortic Valve There is a normal trileaflet aortic valve. There is no aortic valve stenosis. There is no aortic valve regurgitation. Mitral Valve The mitral valve appears normal. There is trace mitral valve regurgitation. There is no mitral valve stenosis. Pulmonic Valve The pulmonic valve is likely normal. Tricuspid Valve Normal tricuspid valve structure. There is mild tricuspid valve regurgitation. There is no evidence of pulmonary hypertension. Great Vessels The aortic annulus, sinuses of valsalva, and asc aorta are normal in size. Small plaque is seen in the sino tubular ridge. Venous The inferior vena cava is normal in size and collapses greater than 50% with inspiration. Pericardium/Pleural There is no evidence of pericardial effusion. Prior Study Comparison No prior study available for comparison. Recommendations, Care & Conclusions No obvious valvular pathology seen on this study. Measurements 2D Linear Measurements IVSd: 1.11 0.6-0.9/0.6-1.0 cm LVIDd: 4.43 3.9-5.3/4.2-5.9 cm LVIDd Index: 2.77 2.4-3.2/2.2-3.1 cm/m2 LVIDs: 2.99 2.0-3.6 cm LVPWd: 0.82 0.7-1.1 cm LA Diam: 3.30 2.7-3.8/3.0-4.0 cm LAIDs Index: 2.06 1.5-2.3 cm/m2 LV Mass: 177.64 67-162/88-224 g LV Mass Index: 111.02 43-95/49-115 g/m2 LVOT Diam: 2.00 3.0+(-)1.3 cm 2D Systolic Function EF 4C: 66.60 >55% EF 2C: 63.60 >55% EF BiP: 64.60 >55% Mitral Valve MV Pk E: 0.51 MV PK A: 0.60 MV Decel Time: 278.00 E/A: 0.90 E'Lateral: 6.64 E'Medial: 6.31 E/E' Med: 8.10 E/E' Lat: 7.70 PHT: 81.00 MVA PHT: 2.72 Decel Fergus: 1.85 Aortic Valve AoV Pk Anival: 1.34 AoV Mn Anival: 0.96 AoV VTI: 0.30 AoV Pk Grad: 7.00 Aov Mn Grad: 4.00 BOBBY Cont.VTI: 2.31 LVOT LVOT Pk Anival: 0.99 LVOT Mn Anival: 0.64 LVOT VTI: 0.22 LVOT Pk Grad: 4.00 LVOT Mn Grad: 2.00 LVOT Diam: 2.00 LVOT Area: 3.14 Diastolic Function MV Pk E: 0.51 MV Pk A: 0.60 E/A: 0.90 E'Medial: 6.31 E/E' Med: 8.10 E' Laterial: 6.64 E/E' Lat: 7.70 Right Ventricle TAPSE (mm): 22.20 TVS' Anival: 8.81 Tricuspid Valve TR Pk Anival: 2.52 TR Pk Grad: 25.00 RA Press: 3.00 RVSP: 28.00 Great Vessels Aorta Sinus of Valsalva: 2.79 2.0-3.5 cm Ao Asc: 2.70 2.1-3.4 cm Updated in Other Vendor System with Status of Final Shan Quintana MD electronically signed on 07/21/2023 12:07:22 PM with status of Final
--- NOTE | 2023-07-19 08:02 | CA_ITS ---
Acquisition Time: 2023-07-19 09:07:30 Total Exercise Time: 00:02:00 Test Indications: CP, SOB Medications: SEE H Protocol: LEXISCAN Max HR: 112 BPM 69% of Pred: 161 BPM Max BP: 172/090 mmHG Max Work Load: 1.6 METS Pharmacological stress test with Lexiscan injection, while walking slow on treadmill, with mild shortness of breath, without arrythmia, with elevated BP at baseline and no significant change with injection, with nondiagnostic EKG for ischemia.In recovery she was treated with Aminophylline 75mg IVP to reverse Lexiscan. She had not taken her antihypertensives yet today. Had her take them at the completion of the test. Nuclear images pending. Test reviewed with Dr Quintana Referred By: Pito Sahni Overread By: CONY DIEGO
== END ==
LOC: HO.CARD 08:00
PROVIDERS: PCP Internal Medicine; Visit Provider Internal Medicine Cardiovascular Disease
DX: R07.89 Other chest pain (principal); I25.10 Atherosclerotic heart disease of native coronary artery without angina pectoris; J44.9 Chronic obstructive pulmonary disease, unspecified
CPT/HCPCS: 78452; 93017; 93306; 93356; A9500; J0280; J2785

== ENCOUNTER → 2023-07-19 08:02 | Outpatient (BNV) | payer MEDICARE, MEDICAID, SELFPAY | PROVIDERS: PCP Internal Medicine; Visit Provider Nurse Practitioner Family | DX: I25.10 Atherosclerotic heart disease of native coronary artery without angina pectoris (principal) | CPT/HCPCS: 78452; 93016; 93018; 93306 ==

== ENCOUNTER 2023-07-25 10:27 | Outpatient (AMB) | payer MEDICARE, MEDICAID, SELFPAY ==
[2023-07-25 10:31] VITALS: BP 126/80; PULSE 92; BMI 21.1
--- NOTE | 2023-07-25 10:31 | MHC.OFFVIS ---
Intake Vital Signs 07/25/23 10:31 Height 5 ft 3 in Weight 119 lb 0.794 oz BMI 21.1 BP 126/80 Blood Pressure Location Lt brachial Position Sitting Pulse 92 Intake Visit Reasons: f/up after testing Intake Note: Follow-up after echo and stress c/o sob at times still and can have chest tightness Deportation Officer Required: No Allergies romosozumab-aqqg [From Evenity] Allergy (Severe, Verified 07/18/23 13:31) Hives Penicillins [PENICILLINS] Allergy (Intermediate, Verified 07/18/23 13:31) RASH/HIVES alendronate sodium Allergy (Verified 07/18/23 13:31) Wheezing dexamethasone Allergy (Verified 07/18/23 13:31) Eye Swelling Medication List - Last Reconciled 07/25/23 by Pito Sahni MD albuterol sulfate 90 mcg/actuation 2 inhalations inhalation QID bisacodyl (Dulcolax (bisacodyl)) 10 mg (2 x 5 mg) PO BEDTIME 30 days buspirone 10 mg PO BID calcium citrate 500 mg (2 x 250 mg calcium) PO BID cetirizine 10 mg PO DAILY cholecalciferol (vitamin D3) 50 mcg PO DAILY diclofenac sodium 1% 1 - 2 grams topical BID dicyclomine 20 mg PO QID famotidine 40 mg PO BID fesoterodine ER (Toviaz) 4 mg PO DAILY 30 days fluticasone propionate 50 mcg/actuation sprays intranasal leflunomide 20 mg PO DAILY lidocaine 5% 2 patches topical DAILY linaclotide (Linzess) 290 mcg PO DAILY lorazepam 1 mg PO BID PRN metoprolol succinate ER 100 mg PO DAILY montelukast 10 mg PO DAILY naloxone 4 mg/actuation 0 sprays intranasal naproxen 500 mg PO BID nifedipine ER 60 mg PO BID oxycodone 10 mg PO Q6H PRN oxycodone ER 20 mg PO BID polyethylene glycol 3350 17 grams PO DAILY prednisolone acetate 1% drps ophthalmic (eye) prednisolone sodium phosphate 2 mg PO QID prednisone PO daily; Take 2 tabs daily x 5 days, then 1 tab daily x 5 days 10 days pregabalin 300 mg PO BID rabeprazole 20 mg PO BID simethicone 180 mg PO QID Symbicort 160-4.5 mcg/actuation (budesonide-formoterol) 2 puffs inhalation BID 30 days NS tizanidine 6 mg PO BEDTIME PRN triamcinolone acetonide (Nasacort) 1 spray intranasal DAILY valacyclovir 1,000 mg PO DAILY valsartan-hydrochlorothiazide 320-25 mg 1 tab PO DAILY zolpidem 10 mg PO BEDTIME HPI HPI Comments History of Present Illness Details Brisa comes for follow-up. Recent cardiac workup within normal limits. Myocardial perfusion imaging shows no ischemia. Echocardiogram shows normal structure of the heart. She continues to have intermittent episodes of chest tightness also has exertional shortness of breath. Only using bronchodilators. [facility] Medical History Hypocalcemia Coronary artery calcification seen on CAT scan Dyspnea Pulmonary nodules COPD (chronic obstructive pulmonary disease) Chest pain Pulmonary emboli Urinary urgency Hx of hemorrhoids Seropositive rheumatoid arthritis Surgical History History of esophagogastroduodenoscopy (EGD) Hx of colonoscopy Family History Father Cancer Mother Colon cancer HTN (hypertension) Diabetes Breast cancer Brother Lupus HTN (hypertension) Kidney transplanted Sister HTN (hypertension) Cancer Liver transplanted Other FH: cancer FH: mental illness Social History Household Members: None Housing: House Alcohol intake: former Patient Tobacco Use Status: Former Tobacco user Cigarettes Per Day: 5 Years Smoked: 43 Review of Systems Const Denies chills, Denies fatigue, Denies fever(s), Denies frequent falls, Denies weakness, Denies weight gain and Denies weight loss ENT Denies dizziness Card Denies chest pain, Denies leg edema, Denies lightheadedness, Denies palpitations, Denies dyspnea, Denies dyspnea on exertion, Denies orthopnea and Denies other (loss of consciousness) Resp Denies cough, Denies dyspnea and Denies dyspnea on exertion GI Denies hematochezia and Denies change in stool character Musc Denies abnormal gait, Denies muscle weakness, Denies numbness, Denies radiating pain into limb and Denies tingling Neuro Denies Abnormal speech present, Denies abnormal gait, Denies dizziness, Denies frequent falls, Denies numbness, Denies tingling and Denies weakness Endo Denies fatigue and Denies palpitations Physical Exam Vital Signs: Last Vital Signs Pulse 92 07/25/23 10:31 BP 126/80 07/25/23 10:31 BMI result Body Mass Index 21.1 Const General: cooperative, comfortable, no acute distress, alert and awake Nutritional Appearance: average body habitus Orientation/consciousness: patient oriented x3 Limitations: ambulation with cane Neck Neck: Yes trachea midline, Yes supple and Yes no JVD Resp Effort & Inspection: normal respiratory effort Auscultation: clear to auscultation bilaterally Cardio Jugular venous distension: no JVD Palpation: normal PMI Rate: regular rate Rhythm: regular rhythm Heart sounds: S1 normal heart sound present, S2 normal heart sound present, no click, no gallops, no murmurs and no rubs Neuro General: patient oriented x3 and no focal motor deficits Speech: No Abnormal speech present Extrem General: Yes no clubbing, cyanosis or edema Assessment & Plan Assessment & Plan (1) Coronary artery calcification seen on CAT scan: Code(s): I25.10 - Atherosclerotic heart disease of [place] coronary artery without angina pectoris Plan: Coronary artery calcifications surrogate marker for underlying coronary atherosclerosis although there is no evidence of obstructive coronary artery disease by myocardial perfusion imaging. Echocardiogram also shows normal structure of the heart. Patient's symptoms of chest tightness and shortness of breath do not appear to be related to cardiac etiology and probably related to underlying bronchospastic airway disease. Pursue follow-up with Pulmonary for managing her symptoms. From cardiac perspective I would suggest to continue aggressive medical therapy blood pressure is currently optimized. Her LDL is 94 mg/dL with suggest statin therapy with atorvastatin 20 mg daily to target goal LDL closer to 60 mg/dL to reduce acute events as well as chronic progressive atherosclerotic disease and complications. This was discussed with her. She understands agrees. Will take the liberty to prescribe the same and follow-up lipid panel in 2 months time. Thank you for allowing me to partake in the care. Will follow-up in 1 year's time Coding Level of Care Code Est Pt Level 3 (67140) Diagnoses Coronary artery calcification seen on CAT scan I25.10
== END 2023-07-25 10:48 | disposition home or self-care (01) ==
PROVIDERS: PCP Internal Medicine; Visit Provider Internal Medicine Cardiovascular Disease
DX: I25.10 Atherosclerotic heart disease of native coronary artery without angina pectoris (principal)
CPT/HCPCS: 99213

== ENCOUNTER → 2023-07-25 10:27 | Outpatient (BNVA) | payer MEDICARE, MEDICAID, SELFPAY | PROVIDERS: PCP Internal Medicine; Visit Provider Internal Medicine Cardiovascular Disease | DX: I25.10 Atherosclerotic heart disease of native coronary artery without angina pectoris (principal) | CPT/HCPCS: 99212 ==

== ENCOUNTER 2023-07-25 10:56 | Outpatient (REF) | payer MEDICARE, MEDICAID, SELFPAY ==
[2023-07-25 14:18] LABS: Alanine Aminotransferase 11 U/L (0-31); Aspartate Amino Transferase 17 U/L (5-31); C Reactive Protein 0.12 mg/dL (< or = 0.50); Estimated Glomerular Filt Rate > 60
[2023-07-25 14:37] LABS: Basophils Absolute Auto 0.1 X10*3/uL (0.0-0.2); Basophils Percent Auto 1.2 % (0-2); Eosinophils Absolute Auto 0.2 X10*3/uL (0.0-0.4); Eosinophils Percent Auto 2.3 % (0-4); Hematocrit 41.7 % (37.0-47.0); Hemoglobin 13.8 g/dl (12.0-16.0); Imm Gran Abs Auto 0.02 X10*3/uL (0.00-0.03); Imm Gran Pct Auto 0.3 % (0.0-0.4); Lymphocytes Absolute Auto 1.7 X10*3/uL (1.2-4.9); Lymphocytes Percent Auto 25.8 % (20-40); MANUAL DIFF FLAG SCAN; Mean Corpuscular HGB Conc 33.1 g/dl (31.0-35.0); Mean Corpuscular Hemoglobin 28.3 pg (27.0-33.0); Mean Corpuscular Volume 85.5 fL (80.0-98.0); Monocytes Absolute Auto 0.4 X10*3/uL (0.1-1.2); Monocytes Percent Auto 5.3 % (2-11); Neutrophils Absolute Auto 4.3 x10*3/uL (2.0-8.3); Neutrophils Percent Auto 65.1 % (45-73); PLT CLUMP 1; Red Blood Count 4.88 X10*6/uL (4.20-5.50); Red Cell Distribution Width 16.5 % (11.0-16.0); SCAN SMEAR FLAG 1
[2023-07-25 14:53] LABS: Platelet Count 173 X10*3/uL (160-400); White Blood Count 6.6 X10*3/uL (4.8-10.8)
[2023-07-25 14:54] LABS: SLIDE REVIEW VERIFIED
[2023-07-30 21:59] LABS: Anti DNA DS Antibody 1 IU/mL
== END 2023-07-25 10:57 | disposition home or self-care (01) ==
LOC: HO.10HDL 10:56
PROVIDERS: Internal Medicine Rheumatology; Visit Provider Internal Medicine Nephrology
DX: M05.9 Rheumatoid arthritis with rheumatoid factor, unspecified (principal); M81.0 Age-related osteoporosis without current pathological fracture; E83.51 Hypocalcemia; R80.9 Proteinuria, unspecified; I10 Essential (primary) hypertension; Z78.0 Asymptomatic menopausal state; Z79.899 Other long term (current) drug therapy
CPT/HCPCS: 36415; 81003; 82565; 82570; 84156; 84450; 84460; 85025; 85652; 86140; 86160; 86225; 99212

== ENCOUNTER 2023-07-25 13:43 | Outpatient (AMB) | payer MEDICARE, MEDICAID, SELFPAY ==
--- NOTE | 2023-07-25 13:44 | A.OFFVIS_ITS ---
Intake Vital Signs 07/25/23 13:45 Height 5 ft 3 in Weight 120 lb 13.013 oz BMI 21.4 BP 150/70 H Blood Pressure Location Lt brachial Position Sitting Pulse 63 Pulse Source Pulse Oximeter Intake Visit Reasons: Osteoporosis Intake Note: Patient present today for Osteoporosis follow up visit. 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 Accompanied by: Self / Same As Patient Allergies romosozumab-aqqg [From Evenity] Allergy (Severe, Verified 07/25/23 13:50) Hives Penicillins [PENICILLINS] Allergy (Intermediate, Verified 07/25/23 13:50) RASH/HIVES alendronate sodium Allergy (Verified 07/25/23 13:50) Wheezing dexamethasone Allergy (Verified 07/25/23 13:50) Eye Swelling Medication List - Last Reconciled 07/25/23 by Roddy Queen MD albuterol sulfate 90 mcg/actuation 2 inhalations inhalation QID atorvastatin 20 mg PO DAILY bisacodyl (Dulcolax (bisacodyl)) 10 mg (2 x 5 mg) PO BEDTIME 30 days buspirone 10 mg PO BID calcium citrate 500 mg (2 x 250 mg calcium) PO BID cetirizine 10 mg PO DAILY cholecalciferol (vitamin D3) 50 mcg PO DAILY diclofenac sodium 1% 1 - 2 grams topical BID dicyclomine 20 mg PO QID famotidine 40 mg PO BID fesoterodine ER (Toviaz) 4 mg PO DAILY 30 days fluticasone propionate 50 mcg/actuation sprays intranasal leflunomide 20 mg PO DAILY lidocaine 5% 2 patches topical DAILY linaclotide (Linzess) 290 mcg PO DAILY lorazepam 1 mg PO BID PRN metoprolol succinate ER 100 mg PO DAILY montelukast 10 mg PO DAILY naloxone 4 mg/actuation 0 sprays intranasal naproxen 500 mg PO BID nifedipine ER 60 mg PO BID oxycodone 10 mg PO Q6H PRN oxycodone ER 20 mg PO BID polyethylene glycol 3350 17 grams PO DAILY prednisolone acetate 1% drps ophthalmic (eye) prednisolone sodium phosphate 2 mg PO QID prednisone PO daily; Take 2 tabs daily x 5 days, then 1 tab daily x 5 days 10 days pregabalin 300 mg PO BID rabeprazole 20 mg PO BID simethicone 180 mg PO QID Symbicort 160-4.5 mcg/actuation (budesonide-formoterol) 2 puffs inhalation BID 30 days NS tizanidine 6 mg PO BEDTIME PRN triamcinolone acetonide (Nasacort) 1 spray intranasal DAILY valacyclovir 1,000 mg PO DAILY valsartan-hydrochlorothiazide 320-25 mg 1 tab PO DAILY zolpidem 10 mg PO BEDTIME HPI HPI Comments History of Present Illness Details 58 YO Female with PMHx hyperparathyroid ism status post parathyroid surgery 12/05/20 is seen in consultation at the request of PCP for Osteoporosis. She has previous seen a [facility] diagnosed in few yrs ago . Never Received treatment in the past except for alendronate on 11/13/22. history of pathologic fracture fragility fractures requiring kyphoplasty 10/08/2022. Has few servings of dietary calcium per day Not Takes Calcium supplement Not Takes IU of Vitamin D daily. takes PPI, anticoagulant, antiepileptic not taking glucocorticoid medication. 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 Has dentures No planned upcoming dental work or extractions. Does smoke DXA dated 09/28/21 : EXAMINATION: BONE DENSITOMETRY CLINICAL INDICATION: Postmenopausal. COMPARISON: Baseline BD dated 02/04/2018. TECHNIQUE: Using a [employer] DXA System (software version: 13.1) manufactured by [employer], eliel l-energy x-ray absorptiometry was performed of the lumbar spine and left hip. The images are of good technical quality. Summary results are attached. FINDINGS: AP SPINE L1-L4: Current: BMD 0.894 g/cm2, Z-score -1.3, T-score -2.4, osteopenia, 5.9% decrease from baseline (<5% change is not significant). Baseline: BMD 0.950 g/cm2. LEFT FEMUR, NECK: Current: BMD 0.670 g/cm2, Z-score -1.5, T-score -2.6, osteoporosis. Baseline: BMD 0.777 g/cm2. LEFT FEMUR, TOTAL: Current: BMD 0.704 g/cm2, Z-score -1.6, T-score -2.4, osteopenia, 11.7% decrease from baseline (<5% change is not significant). Baseline: BMD 0.797 g/cm2. IDENTIFIED RISK FACTORS: Rheumatoid arthritis, tobacco use (current smoker), height loss, glucocorticoids (chronic), menopause. HISTORY OF FRACTURE: None listed. MEDICATIONS: Calcium supplements or multivitamin, vitamin D. MM/XR DEXA axial skeleton IMPRESSION: 1. DIAGNOSIS: Osteoporosis based on the lowest T-score value of -2.6 in the femoral neck applying World Health Organization criteria.? ? Labs: Took Evenity 2 doses with rash in mouth, chest pain , rash and difficulty breathing - SOB remains after stopping . However want s to re[facility]iate [facility] Medical History Hypocalcemia Coronary artery calcification seen on CAT scan Dyspnea Pulmonary nodules COPD (chronic obstructive pulmonary disease) Chest pain Pulmonary emboli Urinary urgency Hx of hemorrhoids Seropositive rheumatoid arthritis Surgical History History of esophagogastroduodenoscopy (EGD) Hx of colonoscopy Family History Father Cancer Mother Colon cancer HTN (hypertension) Diabetes Breast cancer Brother Lupus HTN (hypertension) Kidney transplanted Sister HTN (hypertension) Cancer Liver transplanted Other FH: cancer FH: mental illness Social History Household Members: None Housing: House Alcohol intake: former Patient Tobacco Use Status: Former Tobacco user Cigarettes Per Day: 5 Years Smoked: 43 Assessment & Plan Assessment & Plan (1) Osteoporosis: Comment: fragility fractures requiring kyphoplasty 10/08/2022. DEXA from September 2021 with T-score of-2.6 in the femoral neck. Patient has a history of hyperparathyro idism and underwent surgery to remove 2 parathyroid glands 12/05/2020. Previously following with [facility] endocrine. [place] [facility] [place](s[place] M81.0 - Age-related osteoporosis without current pathological fracture Qualifiers: Presence of current pathological fracture: with current pathological fracture Plan: This is a 58-year-old female with a history of primary hyperparathyroidism status post parathyroidectomy with normalization of calcium and PTH with recent vertebral of fragility fracture and kyphoplasty. Secondary workup was negative . She received 2 injections of Evenity recently had a slightly low calcium and last dose was held. She was also experiencing symptoms while taking the Evenity but would like to reinitate The plan is to renitiate Evenity. If issues arise, will switch to different anabolic (2) Hypocalcemia: Code(s): E83.51 - Hypocalcemia Plan: Resolved Coding Level of Care Code Est Pt Level 3 (94134) Diagnoses Osteoporosis M81.0 Presence of current pathological fracture: with current pathological fracture Hypocalcemia E83.51
[2023-07-25 13:45] VITALS: BP 150/70; PULSE 63; BMI 21.4
== END 2023-07-25 14:13 | disposition home or self-care (01) ==
PROVIDERS: PCP Internal Medicine; Visit Provider Internal Medicine Endocrinology, Diabetes & Metabolism
DX: M81.0 Age-related osteoporosis without current pathological fracture (principal); E83.51 Hypocalcemia
CPT/HCPCS: 99213

== ENCOUNTER 2023-07-31 09:59 | Outpatient (REF) | payer MEDICARE, MEDICAID, SELFPAY ==
--- NOTE | ~2023-07-31 | FL_ITS ---
EXAMINATION: XR FLUOROSCOPY UPPER GI WITH AIR CLINICAL INFORMATION: Reflux. Dysphagia. COMPARISON: None TECHNIQUE: Fluoroscopic air contrast upper GI examination was performed utilizing standard techniques with thin and thick barium and effervescent granules. Numerous spot images were obtained. FINDINGS: Lateral cine images of the oropharynx and hypopharynx demonstrate normal swallow mechanism with normal epiglottic inversion and soft palate elevation. There was trace laryngeal penetration above the cords with the thick barium. No subglottic or tracheal aspiration is seen. No nasopharyngeal reflux present. Hypopharyngeal structures appear normal without evidence of mass or diverticulum. There was no significant cricopharyngeal achalasia. Surgical clips are present in the neck, consistent with prior history of parathyroidectomy. Dual and single contrast images of the esophagus demonstrate normal caliber, contour, and mucosal pattern. No evidence of stricture, mass, or ulcerations identified. Primary esophageal peristalsis was normal. Nonpropulsive tertiary contractions are noted in the mid and distal esophagus. A small type I hiatal hernia is present. No significant gastroesophageal reflux was seen during the course of the examination and on reflux views. Dual contrast and single contrast images of the stomach demonstrated mildly diffusely thickened gastric folds, possibly on the basis of poor retention of effervescent granule gas and suboptimal distention, although gastritis not excluded. Contrast freely passed into the gastric antrum and duodenal bulb without delay. Single and air-contrast images of the duodenal bulb demonstrate no abnormality. The duodenal sweep has a normal appearance, course, and mucosal fold appearance. The imaged proximal jejunum has a normal fold pattern and caliber. Vertebroplasty changes are noted in the L2 and L3 vertebral bodies. FLUOROSCOPY TIME: 4 minutes 19 seconds Number of Spot Images: 12 Number of Cine: 10 DOSE AREA PRODUCT: 2002 uGy-m2 (microgray-meter squared) FL/FL barium swallow with air IMPRESSION: 1. Trace laryngeal penetration with thick barium. No gross subglottic aspiration. 2. Postsurgical changes in the neck consistent with prior history of parathyroidectomy. 3. Mild esophageal dysmotility. 4. Small type I hiatal hernia. 5. Thickened gastric folds present, possibly due to poor distention due to loss of insufflation from effervescent granules, although gastritis is also a possibility. Consider follow-up with EGD. 6. Vertebroplasty changes noted in the L2 and L3 vertebral bodies. This procedure was performed by Sunday Loya PA-C, and supervised by Dr. Waller
== END 2023-07-31 10:00 | disposition home or self-care (01) ==
LOC: HO.XRAY 09:59
PROVIDERS: PCP Internal Medicine; Visit Provider Nurse Practitioner
DX: K21.9 Gastro-esophageal reflux disease without esophagitis (principal); R13.10 Dysphagia, unspecified
CPT/HCPCS: 74221

== ENCOUNTER → 2023-07-31 10:01 | Outpatient (BNV) | payer MEDICARE, MEDICAID, SELFPAY | PROVIDERS: PCP Internal Medicine; Visit Provider Radiology Diagnostic Radiology | DX: R13.10 Dysphagia, unspecified (principal); K21.9 Gastro-esophageal reflux disease without esophagitis | CPT/HCPCS: 74221 ==

== ENCOUNTER 2023-09-04 10:59 | Outpatient (AMB) | payer MEDICARE, MEDICAID, SELFPAY ==
[2023-09-04 11:10] VITALS: BP 130/74; PULSE 83; TEMP 36.1; O2SAT 96; BMI 21.1
--- NOTE | 2023-09-04 11:10 | A.OFFVIS_ITS ---
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 Reports having neck injection done 2 weeks ago by [facility]. 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 Ledezma, 58yoF returns for follow-up of her rheumatoid arthritis and osteoarthritis. She remains on leflunomide 20 mg daily, OxyContin, Lyrica, tizanidine p.r.n., naproxen 500 b.i.d. p.r.n. and tizanidine at bedtime. She presents today with warm, erythematous hands with swelling to multiple PIPs and DROM in her fingers. She says that the stiffness in the fingers is worse in the mornings. Her wrists, ankle hurt and reports that there was low back pain radiating to the buttock and down the leg. She reports her hands have been like that since before her last visit 05/2023, She was at some point switched from MTX to Leflunomide because her hands were not improving on the MTX. She states the Leflunomide is not helping just as the MTX. Evinity was stopped due to side effect but no new treatment started for her osteoporosis as yet. Osteoporosis: PMHx hyperparathyroidism status post parathyroid surgery 12/05/20 First diagnosed in few yrs ago Never Received treatment in the past except for alendronate on 11/13/22. history of pathologic fracture fragility fractures requiring kyphoplasty 10/08/2022. Has few servings of dietary calcium per day takes PPI, anticoagulant, antiepileptic not taking glucocorticoid medication. Not Does weight bearing exercise Has history of Kidney stones: Has family history of Osteoporosis and hip fracture in maternal grandmother Does smoke She was treated with Evenity monthly injections for her osteoporosis. Unfortunately she developed an allergy to it so it had to be stopped. 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 [facility] Medical History Hypocalcemia Coronary artery calcification seen on CAT scan Dyspnea Pulmonary nodules COPD (chronic obstructive pulmonary disease) Chest pain Pulmonary emboli Urinary urgency Hx of hemorrhoids Seropositive rheumatoid arthritis Surgical History History of esophagogastroduodenoscopy (EGD) Hx of colonoscopy Family History Father Cancer Mother Colon cancer HTN (hypertension) Diabetes Breast cancer Brother Lupus HTN (hypertension) Kidney transplanted Sister HTN (hypertension) Cancer Liver transplanted Other FH: cancer FH: mental illness Social History Household Members: None Housing: House Alcohol intake: former Patient Tobacco Use Status: Former Tobacco user Cigarettes Per Day: 5 Years Smoked: 43 Review of Systems Const All systems reviewed & are unremarkable except as noted in HPI and below Physical Exam Vital Signs: Last Vital Signs Temp 97 F 09/04/23 11:10 Pulse 83 09/04/23 11:10 BP 130/74 09/04/23 11:10 Pulse Ox 96 09/04/23 11:10 Oxygen Delivery Method Room Air 09/04/23 11:10 BMI result Body Mass Index 21.1 APPEARANCE: Patient in no acute distress HEART:? Regular rhythm, S1-S2 heard, no murmurs, rubs or gallops. LUNG:? Clear to percussion and auscultation EXTREMITIES: No edema, no calf tenderness, normal peripheral pulses. JOINT EXAM: Lumbar Spine: Mild pain with flexion at 60 degrees. There is spinal and paraspinal muscle tenderness. Multiple small healed scars. Hands: LEFT:? Tenderness and redness but no swelling in the MCP joints. There is bony enlargement of the 2nd through 4th PIP joints. There is tenderness, swelling and redness and warmth in those joints, perhaps more prominent at the 2nd and third PIP. There is tenderness and bony enlargement at the 2nd and 3rd DIPs.? No thenar atrophy or sensory loss. ? RIGHT: Pain and stiffness with range of motion in the 2nd and 3rd fingers. There is tenderness and warmth but no swelling in the MCP joints. There is mild bony enlargement of the thumb IP and in all the PIP joints. The 2nd 3rd have tenderness, swelling and warmth. Their range of motion is diminished. There is mild bony enlargement and tenderness at the 2nd and 5th distal interphalangeal joints. No sensory loss or thenar atrophy. Wrists:? Right: Pain with flexion extension at 75 degrees with slight tenderness and warmth but no swelling. Left: Normal pain-free range of motion but tenderness, trace swelling, increased warmth and erythema. Elbows: LEFT: Full range of motion without tenderness, swelling, increased warmth or erythema. ? RIGHT:? Full range of motion without tenderness, swelling, increased warmth or erythema. Shoulders: Full range of motion without pain. No tenderness, weakness, swelling, increased warmth or erythema. Hip bursa:? Mild trochanteric tenderness. Knees:? Normal pain-free range of motion with mild patellofemoral crepitus. There is slight medial compartment tenderness without effusion, soft tissue swelling, increased warmth or erythema.? Ankles:? Full motion with mild tenderness. No? swelling, increased warmth or erythema.? Tenderness reported to palpation throughout. ? Feet: Diffuse tenderness over the heel, instep, MTP region and toes. However there is no swelling, increased warmth or erythema.? Tender points: Tenderness to digital palpation at the occiput, trapezius, second rib, lateral epicondyle, knees, greater trochanter and gluteal area bilaterally. ? Results Reviewed Results Reviewed: Laboratory Tests 10/29/22 05/09/23 07/25/23 15:57 10:15 11:00 WBC RBC Hgb Plt Count ESR BUN 14 Creatinine 0.79 Estimated GFR > 60 AST ALT C-Reactive Protein Hepatitis A IgM Ab Nonreactive Hep Bs Antigen Negative Hep Bs Antibody NONREACTIVE Hep B Core Total Ab Nonreactive Hepatitis C Ab (EIA) Nonreactive TB Test (T-Spot) Com Negative TB Test Nil Control Passed TB Test Positive Cntrl Passed 07/25/23 11:00 WBC 6.6 RBC 4.88 Hgb 13.8 Plt Count 173 ESR 5 BUN Creatinine Estimated GFR AST 17 ALT 11 C-Reactive Protein 0.12 Hepatitis A IgM Ab Hep Bs Antigen Hep Bs Antibody Hep B Core Total Ab Hepatitis C Ab (EIA) TB Test (T-Spot) Com TB Test Nil Control TB Test Positive Cntrl Assessment & Plan Assessment & Plan (1) Osteoarthritis of hands, bilateral: Code(s): M19.041 - Primary osteoarthritis, right hand; M19.042 - Primary osteoarthritis, left hand Qualifiers: Osteoarthritis type: primary Qualified Code(s): M19.041 - Primary osteoarthritis, right hand; M19.042 - Primary osteoarthritis, left hand (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 DEXA from September 2021 with T-score of-2.6 in the femoral neck. Patient has a history of hyperparathyroidism and underwent surgery to remove 2 parathyroid glands 12/05/2020. Previously following with [facility] endocrine. [place] [facility] [place] Code(s): M81.0 - Age-related osteoporosis without current pathological fracture Qualifiers: Osteoporosis type: age-related Presence of current pathological fracture: with current pathological fracture (5) Seropositive rheumatoid arthritis: Comment: Methotrexate: prior to 2018- October 2021 Leflunomide: October 2022 to present Code(s): M05.9 - Rheumatoid arthritis with rheumatoid factor, unspecified Plan #SeroPos RA: The patient continues to complain quite a bit about her hands as she did at prior visit. On PE, they were stiff, swollen, erythematous and tender. She also has some OA and she has been using some topical diclofenac on these fingers without much improvement. I think she needs additional coverage and so I will add on HUMIRA 40 mg QOW. She will continue the Leflunomide 20mg QD. Will will consider to reduce Leflunomide once HUMIRA onboard and is effective. I will also prescribe a course of prednisone in the meantime #FM/OA:Additionally, she does have many tender points consistent with fibromyalgia that no doubt adds to her discomfort. I continue to recommended gentle stretching every day and activities that encourage relaxation. #Assisted Use: The labs are WNL to continue Leflunomide and patient denies any side effects from the medication. TB and Hep panel are ok to start HUMIRA. I discussed with patient that she should hold HUMIRA for fevers, infection, non- healing wound, surgery or cancer diagnosis. We will continue to monitor CBC and CMP. #Osteoporosis: She will need to follow with endocrine evaluation for her osteoporosis. Follow-up at 3 months with blood work before the visit is recommended. I spent 40 minutes reviewing chart, evaluating patient, documenting and ordering. 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
== END 2023-09-04 11:54 | disposition home or self-care (01) ==
PROVIDERS: PCP Internal Medicine; Visit Provider Nurse Practitioner Family
DX: M05.79 Rheumatoid arthritis with rheumatoid factor of multiple sites without organ or systems involvement (principal); M19.041 Primary osteoarthritis, right hand; M19.042 Primary osteoarthritis, left hand; Z79.899 Other long term (current) drug therapy; M79.7 Fibromyalgia; M81.0 Age-related osteoporosis without current pathological fracture
CPT/HCPCS: 99215

== ENCOUNTER → 2023-09-04 10:59 | Outpatient (BNVA) | payer MEDICARE, MEDICAID, SELFPAY | PROVIDERS: PCP Internal Medicine; Visit Provider Nurse Practitioner Family | DX: M19.041 Primary osteoarthritis, right hand (principal); M19.042 Primary osteoarthritis, left hand; M79.7 Fibromyalgia; M81.0 Age-related osteoporosis without current pathological fracture; M05.9 Rheumatoid arthritis with rheumatoid factor, unspecified; Z79.899 Other long term (current) drug therapy | CPT/HCPCS: 99212 ==

== ENCOUNTER 2023-09-18 13:20 | Outpatient (AMB) | payer MEDICARE, MEDICAID, SELFPAY ==
[2023-09-18 13:29] VITALS: BP 160/100; PULSE 98; O2SAT 98; BMI 20.6
--- NOTE | 2023-09-18 13:29 | HO.NEPHOV_ITS ---
HPI HPI Comments History of Present Illness Details Brisa was seen in the office for her uncontrolled hypertension. 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 She has history of parathyroidectomy with normalization of serum calcium and blood pressure for a while but lately her blood pressure has not been very controlled. She also has had pulmonary embolism and had been on anticoagulation. She had a brother who developed ESRD due to lupus nephritis. She had denies chest pain, shortness of breath, nausea, vomiting, diarrhea, proximal nocturnal dyspnea or orthopnea. She claims to be compliant with her diet and medications. Her renal functions had been stable. She has been having flare of RA and is on prednisone. She is on leflunomide. She is being contemplating to start on Esther. She has been taking Valsartan / HCTZ bid and nifedipine once a day( got herself mixed up) [facility] Medical History Hypocalcemia Coronary artery calcification seen on CAT scan Dyspnea Pulmonary nodules COPD (chronic obstructive pulmonary disease) Chest pain Pulmonary emboli Urinary urgency Hx of hemorrhoids Seropositive rheumatoid arthritis Surgical History History of esophagogastroduodenoscopy (EGD) Hx of colonoscopy Family History Father Cancer Mother Colon cancer HTN (hypertension) Diabetes Breast cancer Brother Lupus HTN (hypertension) Kidney transplanted Sister HTN (hypertension) Cancer Liver transplanted Other FH: cancer FH: mental illness Social History Household Members: None Housing: House Alcohol intake: former Patient Tobacco Use Status: Former Tobacco user Cigarettes Per Day: 5 Years Smoked: 43 Vital Signs 09/18/23 13:29 Height 5 ft 3 in Weight 116 lb 8 oz BMI 20.6 BP 160/100 H Blood Pressure Location Lt brachial Position Sitting Pulse 98 Pulse Source Pulse Oximeter Pulse Oximetry (%) 98 Oxygen Delivery Method Room Air Physical Exam Vital Signs: Last Vital Signs Pulse 98 09/18/23 13:29 BP 180/120 H 09/18/23 13:29 Pulse Ox 98 09/18/23 13:29 Oxygen Delivery Method Room Air 09/18/23 13:29 BMI result Body Mass Index 20.6 Const General: comfortable and no acute distress Orientation/consciousness: patient oriented x3 HEENT Head: Yes normocephalic Mouth: Normal oral and palatal mucosa present Eyes EOM: EOMs intact bilaterally Neck Neck: Yes supple Resp Auscultation: clear to auscultation bilaterally Cardio Jugular venous distension: no JVD Rate: regular rate GI Palpation (GI): Soft to palpation Auscultation: normal bowel sounds General: Yes no CVA tenderness Back/Spine/Pelvis Back: no CVA tenderness Skin General skin exam: no rashes or lesions noted Neuro General: patient oriented x3 and moves all extremities Extrem General: Yes no pedal edema Assessment & Plan Assessment & Plan (1) Hypertension: Code(s): I10 - Essential (primary) hypertension Qualifiers: Hypertension type: primary hypertension Qualified Code(s): I10 - Essential (primary) hypertension Plan Brisa has longstanding hypertension and is on multiple antihypertensive medications. Blood pressure is better controlled since last visit. She has no history of known retinopathy, left ventricular hypertrophy, proteinuria or renal dysfunction. She is on multiple antihypertensive medications . She had hypercalcemia with the primary hyperparathyroidism and had undergone parathyroid surgery. She should be on a low-sodium diet. She should continue metoprolol 100 mg daily along with Nifedipine 120 mg daily and Valsartan/HCTZ 320/25 mg AM. I plan to start Spironolactone 25 mg next week if her BP remains labile. I plan to check a renin, aldosterone, Doppler of her renal arteries, antiphospholipid antibody, urinalysis, urine protein creatinine ratio among other workup with time if needed. She is going to be followed up for ongoing monitoring and continued care. All her questions were answered. Medications: Changed From nifedipine ER 120 mg PO DAILY To nifedipine ER 120 mg (2 x 60 mg) PO DAILY 180 tabs 3RF 90 days Coding Level of Care Code Est Pt Level 4 (74726) Diagnoses Primary hypertension I10 Hypertension type: primary hypertension Results Reviewed Nephrology Results: Hgb 13.8 g/dl (12.0-16.0) 07/25/23 WBC 6.6 X10*3/uL (4.8-10.8) 07/25/23 Plt Count 173 X10*3/uL (160-400) 07/25/23 Creatinine 0.79 mg/dL (0.5-1.4) 07/25/23 Urine Protein Negative mg/dL (Neg-Trace) 07/25/23 Urine Creatinine 59.91 mg/dL 07/25/23 Protein/Creatinin Ratio TNP 07/25/23
== END 2023-09-18 14:09 | disposition home or self-care (01) ==
PROVIDERS: PCP Internal Medicine; Visit Provider Internal Medicine Nephrology
DX: I10 Essential (primary) hypertension (principal)
CPT/HCPCS: 99214

== ENCOUNTER → 2023-09-18 13:20 | Outpatient (BNVA) | payer MEDICARE, MEDICAID, SELFPAY | PROVIDERS: PCP Internal Medicine; Visit Provider Internal Medicine Nephrology | DX: M05.9 Rheumatoid arthritis with rheumatoid factor, unspecified (principal); M25.442 Effusion, left hand; M25.441 Effusion, right hand; I10 Essential (primary) hypertension; Z79.899 Other long term (current) drug therapy | CPT/HCPCS: 99212 ==

== ENCOUNTER 2023-09-18 14:20 | Outpatient (AMB) | payer MEDICARE, MEDICAID, SELFPAY ==
--- NOTE | 2023-09-18 14:23 | MHC.OFFVIS ---
Intake Vital Signs 09/18/23 14:24 Height 5 ft 3 in Weight 115 lb 11.883 oz BMI 20.5 BP 180/100 H Blood Pressure Location Rt brachial Position Sitting Respiration 15 Pulse 96 Pulse Source Pulse Oximeter Pulse Oximetry (%) 97 Oxygen Delivery Method Room Air Intake Visit Reasons: cont rt hand pain/swelling Allergies [id number] [From Evenity] Allergy (Severe, Verified 09/19/23 15:25) Hives Penicillins [PENICILLINS] Allergy (Intermediate, Verified 09/19/23 15:25) RASH/HIVES alendronate sodium Allergy (Verified 09/19/23 15:25) Wheezing dexamethasone Allergy (Verified 09/19/23 15:25) Eye Swelling Medication List - Last Reconciled 09/18/23 by Deepthi Orona RN adalimumab (Humira(CF) Pen) 40 mg (0.4 mL) subcut Q2W albuterol sulfate 90 mcg/actuation 2 inhalations inhalation QID atorvastatin 20 mg PO DAILY bisacodyl 10 mg (2 x 5 mg) PO BEDTIME buspirone 10 mg PO BID calcium citrate 500 mg (2 x 250 mg calcium) PO BID cetirizine 10 mg PO DAILY cholecalciferol (vitamin D3) 50 mcg PO DAILY diclofenac sodium 1% 1 - 2 grams topical BID dicyclomine 20 mg PO QID famotidine 40 mg PO BID fesoterodine ER (Toviaz) 4 mg PO DAILY 30 days fluticasone propionate 50 mcg/actuation sprays intranasal leflunomide 20 mg PO DAILY lidocaine 5% 2 patches topical DAILY linaclotide (Linzess) 290 mcg PO DAILY lorazepam 1 mg PO BID PRN metoprolol succinate ER 100 mg PO DAILY mometasone-formoterol 200-5 mcg/actuation (Dulera) 2 puffs inhalation Q12H 30 days montelukast 10 mg PO DAILY naloxone 4 mg/actuation 0 sprays intranasal naproxen 500 mg PO BID nifedipine ER 120 mg (2 x 60 mg) PO DAILY 90 days oxycodone 10 mg PO Q6H PRN oxycodone ER 20 mg PO BID polyethylene glycol 3350 17 grams PO DAILY prednisolone acetate 1% drps ophthalmic (eye) prednisolone sodium phosphate 2 mg PO QID prednisone take two tablets per day for 2 weeks, then 1 tablet per day x 1 week. pregabalin 300 mg PO BID rabeprazole 20 mg PO BID simethicone 180 mg PO QID tizanidine 6 mg PO BEDTIME PRN triamcinolone acetonide (Nasacort) 1 spray intranasal DAILY valacyclovir 1,000 mg PO DAILY valsartan-hydrochlorothiazide 320-25 mg 1 tab PO DAILY zolpidem 10 mg PO BEDTIME HPI HPI Comments History of Present Illness Details Ms. Brisa Romero 58-year-old female presents today as a walk-in for urgent visit due to swelling to her right PIP joint and hand pain. She is currently on a prednisone taper. Upon inquiry the patient but her Humira. She was off the misunderstanding that she needed to finish the prednisone before starting Humira [facility] Medical History (Updated 09/22/23 @ 22:22 by Gabrielle Mendez [facility]) Swelling of finger joint of right hand Swelling of finger joint of left hand Hypocalcemia Coronary artery calcification seen on CAT scan Dyspnea Pulmonary nodules COPD (chronic obstructive pulmonary disease) Chest pain Pulmonary emboli Urinary urgency Hx of hemorrhoids Seropositive rheumatoid arthritis Surgical History History of esophagogastroduodenoscopy (EGD) Hx of colonoscopy Family History Father Cancer Mother Colon cancer HTN (hypertension) Diabetes Breast cancer Brother Lupus HTN (hypertension) Kidney transplanted Sister HTN (hypertension) Cancer Liver transplanted Other FH: cancer FH: mental illness Social History Household Members: None Housing: House Alcohol intake: former Patient Tobacco Use Status: Former Tobacco user Cigarettes Per Day: 5 Years Smoked: 43 Review of Systems Const All systems reviewed & are unremarkable except as noted in HPI and below Physical Exam Vital Signs: Last Vital Signs Pulse 96 09/18/23 14:24 Resp 15 09/18/23 14:24 BP 180/100 H 09/18/23 14:24 Pulse Ox 97 09/18/23 14:24 Oxygen Delivery Method Room Air 09/18/23 14:24 BMI result Body Mass Index 20.5 APPEARANCE: Patient in no acute distress HEART:? Regular rhythm, S1-S2 heard, no murmurs, rubs or gallops. LUNG:? Clear to auscultation EXTREMITIES: No edema, no calf tenderness, normal peripheral pulses. JOINT EXAM: Hands: LEFT:? Tenderness and redness but no swelling in the MCP joints. There is bony enlargement of the 2nd through 4th PIP joints. There is tenderness, swelling and redness and warmth in those joints, perhaps more prominent at the 2nd and third PIP. There is tenderness and bony enlargement at the 2nd and 3rd DIPs.? No thenar atrophy or sensory loss. ? RIGHT: Pain and stiffness with range of motion in the 2nd and 3rd fingers. There is tenderness and warmth but no swelling in the MCP joints. There is mild bony enlargement of the thumb IP and in all the PIP joints. The 2nd 3rd have tenderness, swelling and warmth. Their range of motion is diminished. There is mild bony enlargement and tenderness at the 2nd and 5th distal interphalangeal joints. No sensory loss or thenar atrophy. Wrists:? Right: Pain with flexion extension at 75 degrees with slight tenderness and warmth but no swelling. Left: Normal pain-free range of motion but tenderness, trace swelling, increased warmth and erythema. Feet: Diffuse tenderness over the heel, instep, MTP region and toes. However there is no swelling, increased warmth or erythema.? ? 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 I will also extend her prednisone taper so that she will have adequate coverage until Humira onboards. # long-term use: The patient will also schedule a Humira teaching session with the nurse. I also discussed with the patient when to hold the medication in the event of fevers, infections, surgery, and nonhealing wounds. I spent 25 minutes with the patient assessing, educating and counseling the patient and documenting Medications: Changed From prednisone take two tablets per day for 2 weeks, then 1 tablet per day x 1 week. 40 tabs 0RF M05.9 - Rheumatoid arthritis with rheumatoid factor, unspecified To prednisone take 4 tablets per day for 3 days, 3 tablets per day for 3 days, 2 tablets per day for 3 days 1 tablets per day for 3 days stopped. 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
[2023-09-18 14:24] VITALS: BP 180/100; PULSE 96; RESP 15; O2SAT 97; BMI 20.5
== END 2023-09-18 15:06 | disposition home or self-care (01) ==
PROVIDERS: PCP Internal Medicine; Visit Provider Nurse Practitioner Family
DX: M05.79 Rheumatoid arthritis with rheumatoid factor of multiple sites without organ or systems involvement (principal); M25.442 Effusion, left hand; M25.441 Effusion, right hand; Z79.899 Other long term (current) drug therapy
CPT/HCPCS: 99214

== ENCOUNTER → 2023-09-19 13:29 | Outpatient (BNVA) | payer MEDICARE, MEDICAID, SELFPAY | PROVIDERS: PCP Internal Medicine; Visit Provider Nurse Practitioner Family | DX: M06.9 Rheumatoid arthritis, unspecified (principal); Z71.89 Other specified counseling | CPT/HCPCS: 99211 ==

== ENCOUNTER 2023-09-23 15:31 | Outpatient (AMB) | payer MEDICARE, MEDICAID, SELFPAY ==
[2023-09-23 15:34] VITALS: BP 162/92; PULSE 87; BMI 20.3
--- NOTE | 2023-09-23 15:34 | MHC.OFFVIS ---
Intake Vital Signs 09/23/23 15:34 Height 5 ft 3 in Weight 114 lb 13.773 oz BMI 20.3 BP 162/92 H Blood Pressure Location Lt brachial Position Sitting Pulse 87 Pulse Source Pulse Oximeter Intake Visit Reasons: f/u osteoporosis-confirmed Intake Note: Patient present today for Osteoporosis follow up visit. 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 Accompanied by: Self / Same As Patient Allergies romosozumab-aqqg [From Evenity] Allergy (Severe, Verified 09/23/23 15:40) Hives Penicillins [PENICILLINS] Allergy (Intermediate, Verified 09/23/23 15:40) RASH/HIVES alendronate sodium Allergy (Verified 09/23/23 15:40) Wheezing dexamethasone Allergy (Verified 09/23/23 15:40) Eye Swelling adalimumab [From Humira] Adverse Reaction (Intermediate, Verified 09/23/23 15:40) Chest Pain HPI HPI Comments History of Present Illness Details 58 YO Female with PMHx hyperparathyroidism status post parathyroid surgery 12/05/20 is seen in consultation at the request of PCP for Osteoporosis. She has previous seen a [facility] diagnosed in few yrs ago . Never Received treatment in the past except for alendronate on 11/13/22. history of pathologic fracture fragility fractures requiring kyphoplasty 10/08/2022. Has few servings of dietary calcium per day Not Takes Calcium supplement Not Takes IU of Vitamin D daily. takes PPI, anticoagulant, antiepileptic not taking glucocorticoid medication. 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 Has dentures No planned upcoming dental work or extractions. Does smoke DXA dated 09/28/21 : EXAMINATION: BONE DENSITOMETRY CLINICAL INDICATION: Postmenopausal. COMPARISON: Baseline BD dated 02/04/2018. TECHNIQUE: Using a [employer] DXA System (software version: 13.1) manufactured by [employer], dual-energy x-ray absorptiometry was performed of the lumbar spine and left hip. The images are of good technical quality. Summary results are attached. FINDINGS: AP SPINE L1-L4: Current: BMD 0.894 g/cm2, Z-score -1.3, T-score -2.4, osteopenia, 5.9% decrease from baseline (<5% change is not significant). Baseline: BMD 0.950 g/cm2. LEFT FEMUR, NECK: Current: BMD 0.670 g/cm2, Z-score -1.5, T-score -2.6, osteoporosis. Baseline: BMD 0.777 g/cm2. LEFT FEMUR, TOTAL: Current: BMD 0.704 g/cm2, Z-score -1.6, T-score -2.4, osteopenia, 11.7% decrease from baseline (<5% change is not significant). Baseline: BMD 0.797 g/cm2. IDENTIFIED RISK FACTORS: Rheumatoid arthritis, tobacco use (current smoker), height loss, glucocorticoids (chronic), menopause. HISTORY OF FRACTURE: None listed. MEDICATIONS: Calcium supplements or multivitamin, vitamin D. MM/XR DEXA axial skeleton IMPRESSION: 1. DIAGNOSIS: Osteoporosis based on the lowest T-score value of -2.6 in the femoral neck applying World Health Organization criteria.? ? Labs: Took Evenity 2 doses with rash in mouth, chest pain , rash and difficulty breathing - SOB remains after stopping . [facility] Medical History (Updated 09/22/23 @ 22:22 by ANA MARÍA Adler-RAMÍREZ) Swelling of finger joint of right hand Swelling of finger joint of left hand Hypocalcemia Coronary artery calcification seen on CAT scan Dyspnea Pulmonary nodules COPD (chronic obstructive pulmonary disease) Chest pain Pulmonary emboli Urinary urgency Hx of hemorrhoids Seropositive rheumatoid arthritis Surgical History History of esophagogastroduodenoscopy (EGD) Hx of colonoscopy Family History Father Cancer Mother Colon cancer HTN (hypertension) Diabetes Breast cancer Brother Lupus HTN (hypertension) Kidney transplanted Sister HTN (hypertension) Cancer Liver transplanted Other FH: cancer FH: mental illness Social History Household Members: None Housing: House Alcohol intake: former Patient Tobacco Use Status: Former Tobacco user Cigarettes Per Day: 5 Years Smoked: 43 Physical Exam Vital Signs: Last Vital Signs Pulse 87 09/23/23 15:34 BP 162/92 H 09/23/23 15:34 BMI result Body Mass Index 20.3 Assessment & Plan Assessment & Plan (1) Osteoporosis: Comment: fragility fractures requiring kyphoplasty 10/08/2022. DEXA from September 2021 with T-score of-2.6 in the femoral neck. Patient has a history of hyperparathyroidism and underwent surgery to remove 2 parathyroid glands 12/05/2020. Previously following with [facility] endocrine. New referral placed [facility] endocrine Code(s): M81.0 - Age-related osteoporosis without current pathological fracture Qualifiers: Osteoporosis type: age-related Presence of current pathological fracture: with current pathological fracture Plan: This is a 58-year-old female with a history of primary hyperparathyroidism status post parathyroidectomy with normalization of calcium and PTH with recent vertebral of fragility fracture and kyphoplasty. Secondary workup was negative . She received 2 injections of Evenity recently had a slightly low calcium and last dose was held. Hypocalcemia resolved. She was also experiencing symptoms while taking the Evenity but would like to reinitate The plan is to renitiate Evenity. Patient will call nurse when she is ready to resume theEvenity injections (2) Hypocalcemia: Code(s): E83.51 - Hypocalcemia Plan: Resolved Coding Level of Care Code Est Pt Level 3 (58327) Diagnoses Osteoporosis M81.0 Osteoporosis type: age-related Presence of current pathological fracture: with current pathological fracture Hypocalcemia E83.51
== END 2023-09-23 15:57 | disposition home or self-care (01) ==
PROVIDERS: PCP Internal Medicine; Visit Provider Internal Medicine Endocrinology, Diabetes & Metabolism
DX: M81.0 Age-related osteoporosis without current pathological fracture (principal)
CPT/HCPCS: 99213

== ENCOUNTER → 2023-09-23 15:31 | Outpatient (BNVA) | payer MEDICARE, MEDICAID, SELFPAY | PROVIDERS: PCP Internal Medicine; Visit Provider Internal Medicine Endocrinology, Diabetes & Metabolism | DX: M81.0 Age-related osteoporosis without current pathological fracture (principal); E83.51 Hypocalcemia | CPT/HCPCS: 99212 ==

== ENCOUNTER 2023-09-24 11:56 | Outpatient (REF) | payer MEDICARE, MEDICAID, SELFPAY ==
[2023-09-24 14:30] LABS: Cholesterol 184 mg/dL (<200); HDL Cholesterol 94 mg/dL (>40); LDL Cholesterol Calculated 80 mg/dL (<100); Triglycerides 52 mg/dL (<150)
== END 2023-09-24 11:57 | disposition home or self-care (01) ==
LOC: HO.10HDL 11:56
PROVIDERS: Visit Provider Internal Medicine Cardiovascular Disease
DX: I25.10 Atherosclerotic heart disease of native coronary artery without angina pectoris (principal)
CPT/HCPCS: 36415; 80061

== ENCOUNTER 2023-09-25 14:52 | Outpatient (AMB) | payer MEDICARE, MEDICAID, SELFPAY ==
--- NOTE | 2023-09-25 15:13 | HO.NEPHOV ---
HPI HPI Comments History of Present Illness Details Brisa was seen in the office for her uncontrolled hypertension. 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 She has history of parathyroidectomy with normalization of serum calcium and blood pressure for a while but lately her blood pressure has not been very controlled. She also has had pulmonary embolism and had been on anticoagulation. She had a brother who developed ESRD due to lupus nephritis. She had denies chest pain, nausea, vomiting, diarrhea, proximal nocturnal dyspnea or orthopnea. She claims to be compliant with her diet and medications. Her renal functions had been stable. She has been having flare of RA and is on prednisone. She is on leflunomide. She is being contemplating to start on Esther. [facility] Medical History (Updated 09/22/23 @ 22:22 by JOSE Adler) Swelling of finger joint of right hand Swelling of finger joint of left hand Hypocalcemia Coronary artery calcification seen on CAT scan Dyspnea Pulmonary nodules COPD (chronic obstructive pulmonary disease) Chest pain Pulmonary emboli Urinary urgency Hx of hemorrhoids Seropositive rheumatoid arthritis Surgical History History of esophagogastroduodenoscopy (EGD) Hx of colonoscopy Family History Father Cancer Mother Colon cancer HTN (hypertension) Diabetes Breast cancer Brother Lupus HTN (hypertension) Kidney transplanted Sister HTN (hypertension) Cancer Liver transplanted Other FH: cancer FH: mental illness Social History Household Members: None Housing: House Alcohol intake: former Patient Tobacco Use Status: Former Tobacco user Cigarettes Per Day: 5 Years Smoked: 43 Vital Signs 09/25/23 15:14 Height 5 ft 3 in Weight 114 lb BMI 20.2 BP 124/70 Blood Pressure Location Lt brachial Position Sitting Pulse 94 Pulse Source Pulse Oximeter Pulse Oximetry (%) 96 Oxygen Delivery Method Room Air Physical Exam Vital Signs: Last Vital Signs Pulse 94 09/25/23 15:14 BP 152/84 H 09/25/23 15:14 Pulse Ox 96 09/25/23 15:14 Oxygen Delivery Method Room Air 09/25/23 15:14 BMI result Body Mass Index 20.2 Const General: comfortable and no acute distress Orientation/consciousness: patient oriented x3 HEENT Head: Yes normocephalic Mouth: Normal oral and palatal mucosa present Eyes EOM: EOMs intact bilaterally Neck Neck: Yes supple Resp Auscultation: clear to auscultation bilaterally Cardio Jugular venous distension: no JVD Rate: regular rate GI Palpation (GI): Soft to palpation Auscultation: normal bowel sounds General: Yes no CVA tenderness Back/Spine/Pelvis Back: no CVA tenderness Skin General skin exam: no rashes or lesions noted Neuro General: patient oriented x3 and moves all extremities Extrem General: Yes no pedal edema Assessment & Plan Assessment & Plan (1) Hypertension: Code(s): I10 - Essential (primary) hypertension Qualifiers: Hypertension type: primary hypertension Qualified Code(s): I10 - Essential (primary) hypertension Plan Brisa has longstanding hypertension and is on multiple antihypertensive medications. Blood pressure is better controlled since last visit. She has no history of known retinopathy, left ventricular hypertrophy, proteinuria or renal dysfunction. She is on multiple antihypertensive medications . She had hypercalcemia with the primary hyperparathyroidism and had undergone parathyroid surgery. She should be on a low-sodium diet. She should continue metoprolol 100 mg daily along with Nifedipine 120 mg daily and Valsartan/HCTZ 320/25 mg AM. I plan to start Spironolactone 25 mg next week if her BP remains labile. I ordered Doppler of renal arteries. I plan to check a renin, aldosterone, antiphospholipid antibody, urinalysis, urine protein creatinine ratio among other workup with time if needed. She is going to be followed up for ongoing monitoring and continued care. All her questions were answered. Orders: Orders US renal BI Today I10 - Essential (primary) hypertension US renal doppler Today I10 - Essential (primary) hypertension Coding Level of Care Code Est Pt Level 4 (05972) Diagnoses Primary hypertension I10 Hypertension type: primary hypertension Results Reviewed Nephrology Results: No Data to Display
[2023-09-25 15:14] VITALS: BP 124/70; PULSE 94; O2SAT 96; BMI 20.2
== END 2023-09-25 15:36 | disposition home or self-care (01) ==
PROVIDERS: PCP Internal Medicine; Visit Provider Internal Medicine Nephrology
DX: I10 Essential (primary) hypertension (principal)
CPT/HCPCS: 99214

== ENCOUNTER → 2023-09-25 14:52 | Outpatient (BNVA) | payer MEDICARE, MEDICAID, SELFPAY | PROVIDERS: PCP Internal Medicine; Visit Provider Internal Medicine Nephrology | DX: I10 Essential (primary) hypertension (principal) | CPT/HCPCS: 99212 ==

== ENCOUNTER 2023-10-01 07:04 | Day surgery (SDC) | payer MEDICARE, MEDICAID, SELFPAY ==
--- NOTE | 2023-09-27 12:07 | HO.ANESPROP2 ---
Documented by User: Annamarie Milan NP 09/27/23 12:13 HPI - Anesthesia Eval Consult details Narrative: 58yo F for Upper Endoscopy and Colonoscopy 07/2023 Cardiac w/u was negative. Pt with intermit chest tightness and sob. Unlikely cardiac etiology. Follows [facility] renal for htn. Stable at 09/25/23 office visit. 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) Fibromyalgia (Acute) Osteoarthritis of hands, bilateral (Acute) Coronary artery calcification seen on CAT scan (Acute) Pulmonary nodules (Acute) COPD (chronic obstructive pulmonary disease) (Acute) Pulmonary emboli (Acute) Hyperparathyroidism (Acute) History of carpal tunnel surgery of right wrist (Acute) Carpal tunnel syndrome of left wrist (Acute) Osteoporosis (Acute) Voiding dysfunction (Acute) Hypercalciuria (Acute) Nephrolithiasis (Acute) Family history of colon cancer in mother (Acute) Chronic idiopathic constipation (Acute) GERD (gastroesophageal reflux disease) (Acute) Bleeding hemorrhoids (Acute) Proctalgia fugax (Acute) Seropositive rheumatoid arthritis (Acute) Past Medical History Medical History Hx of nephrolithotomy with removal of calculi Swelling of finger joint of right hand Swelling of finger joint of left hand Hypocalcemia Coronary artery calcification seen on CAT scan Dyspnea Pulmonary nodules COPD (chronic obstructive pulmonary disease) Chest pain Pulmonary emboli Urinary urgency Hx of hemorrhoids Seropositive rheumatoid arthritis Family History Family History Father Cancer Mother Colon cancer HTN (hypertension) Diabetes Breast cancer Brother Lupus HTN (hypertension) Kidney transplanted Sister HTN (hypertension) Cancer Liver transplanted Other FH: cancer FH: mental illness Surgical History Surgical History Hx of tubal ligation Hx of hand surgery Hx of parathyroidectomy Hx of kyphoplasty History of back surgery History of esophagogastroduodenoscopy (EGD) Hx of colonoscopy Social History Social History Household Members: None Housing: House Alcohol intake: former Patient Tobacco Use Status: Current everyday Tobacco user Tobacco use type: Cigarette Cigarettes Per Day: 5 Years Smoked: 43 Use of substances other than those prescribed or required for medical reasons: No Are you DNR?: No Advance Directives: No Advance Directives Information Provided: Yes Meds Allergies Allergy/AdvReac Type Severity Reaction Status Date / Time romosozumab-aqqg Allergy Severe Hives Verified 10/01/23 07:34 [From Evenity] Penicillins [PENICILLINS] Allergy Intermediate RASH/HIVES Verified 10/01/23 07:34 dexamethasone Allergy Eye Verified 10/01/23 07:34 Swelling adalimumab [From Humira] AdvReac Intermediate Chest Pain Verified 10/01/23 07:34 Home Medications Medication Instructions Recorded Confirmed Last Taken Type metoprolol succinate 100 mg 100 mg PO DAILY 06/30/20 10/01/23 10/01/23 06:30 History tablet,extended release 24 hr oxycodone 10 mg tablet 10 mg PO Q6H PRN severe pain 10/04/20 10/01/23 Unknown History montelukast 10 mg tablet 10 mg PO DAILY 04/12/22 10/01/23 Unknown History valsartan 320 1 tab PO DAILY 04/12/22 10/01/23 Unknown History mg-hydrochlorothiazide 25 mg tablet albuterol sulfate 90 mcg/actuation 2 inh inhalation QID 10/29/22 10/01/23 Unknown History aerosol inhaler fluticasone propionate 50 spray intranasal 10/29/22 09/19/23 Unknown History mcg/actuation nasal spray,suspension lorazepam 1 mg tablet 1 mg PO BID PRN (Drug) Ingestion 10/29/22 10/01/23 Unknown History zolpidem 10 mg tablet 10 mg PO BEDTIME 10/29/22 10/01/23 Unknown History oxycodone 20 mg tablet,crush 20 mg PO BID 11/13/22 10/01/23 Unknown History resistant,extended release 12 hr lidocaine 5 % topical patch 2 patch topical DAILY 11/22/22 10/01/23 Unknown History naloxone 4 mg/actuation nasal spray 0 spray intranasal 11/22/22 09/19/23 Unknown History pregabalin 300 mg capsule 300 mg PO BID 11/22/22 10/01/23 Unknown History valacyclovir 1 gram tablet 1,000 mg PO DAILY 03/27/23 10/01/23 Unknown History buspirone 10 mg tablet 10 mg PO BID 06/04/23 10/01/23 Unknown History cetirizine 10 mg tablet 10 mg PO DAILY 06/04/23 10/01/23 Unknown History naproxen 500 mg tablet 500 mg PO BID 06/04/23 10/01/23 Unknown History prednisolone acetate 1 % eye drp ophthalmic (eye) 06/04/23 09/19/23 Unknown History drops,suspension prednisolone sodium phosphate 5 mg 2 mg PO QID 06/04/23 09/19/23 Unknown History base/5 mL (6.7 mg/5 mL) oral soln triamcinolone acetonide 55 mcg 1 spray intranasal DAILY 06/04/23 10/01/23 Unknown History nasal spray aerosol (Nasacort) Exam Pertinent Lab Results Pertinent Lab Results: Laboratory Tests 05/09/23 05/09/23 07/25/23 10:15 10:15 11:00 WBC Hgb Hct Plt Count Sodium 140 Potassium 3.8 Chloride 105 Carbon Dioxide 26 BUN 14 Creatinine 0.79 07/25/23 11:00 WBC 6.6 Hgb 13.8 Hct 41.7 Plt Count 173 Sodium Potassium Chloride Carbon Dioxide BUN Creatinine Narrative Narrative: EKG 03/2023 normal sinus rhythm with normal EKG ECHO 06/2023 Conclusions: - The left ventricular systolic function is normal. The calculated ejection fraction is 65% by biplane method. - No obvious valvular pathology seen on this study. NM cardiolite stress test 06/2023 Impression: 1. Myocardial perfusion imaging study shows normal myocardial perfusion 2. Gated LVEF is 56% 3. Transient ischemic dilatation not present EKG is nondiagnostic for ischemia Assessment and Plan Assessment Anesthesia Assessment: Chart Reviewed Documented by User: Татьяна Morrell MD 10/01/23 08:25 [facility] Past Medical History Medical History Hx of nephrolithotomy with removal of calculi Swelling of finger joint of right hand Swelling of finger joint of left hand Hypocalcemia Coronary artery calcification seen on CAT scan Dyspnea Pulmonary nodules COPD (chronic obstructive pulmonary disease) Chest pain Pulmonary emboli Urinary urgency Hx of hemorrhoids Seropositive rheumatoid arthritis Family History Family History Father Cancer Mother Colon cancer HTN (hypertension) Diabetes Breast cancer Brother Lupus HTN (hypertension) Kidney transplanted Sister HTN (hypertension) Cancer Liver transplanted Other FH: cancer FH: mental illness Family history of problems with anesthesia: No Surgical History Surgical History Hx of tubal ligation Hx of hand surgery Hx of parathyroidectomy Hx of kyphoplasty History of back surgery History of esophagogastroduodenoscopy (EGD) Hx of colonoscopy History of Problems with Anesthesia: No Social History Social History Household Members: None Housing: House Alcohol intake: former Patient Tobacco Use Status: Current everyday Tobacco user Tobacco use type: Cigarette Cigarettes Per Day: 5 Years Smoked: 43 Use of substances other than those prescribed or required for medical reasons: No Are you DNR?: No Advance Directives: No Advance Directives Information Provided: Yes Meds Allergies Allergy/AdvReac Type Severity Reaction Status Date / Time romosozumab-aqqg Allergy Severe Hives Verified 10/01/23 07:34 [From Evenity] Penicillins [PENICILLINS] Allergy Intermediate RASH/HIVES Verified 10/01/23 07:34 dexamethasone Allergy Eye Verified 10/01/23 07:34 Swelling adalimumab [From Humira] AdvReac Intermediate Chest Pain Verified 10/01/23 07:34 Home Medications Medication Instructions Recorded Confirmed Last Taken Type metoprolol succinate 100 mg 100 mg PO DAILY 06/30/20 10/01/23 10/01/23 06:30 History tablet,extended release 24 hr oxycodone 10 mg tablet 10 mg PO Q6H PRN severe pain 10/04/20 10/01/23 Unknown History montelukast 10 mg tablet 10 mg PO DAILY 04/12/22 10/01/23 Unknown History valsartan 320 1 tab PO DAILY 04/12/22 10/01/23 Unknown History mg-hydrochlorothiazide 25 mg tablet albuterol sulfate 90 mcg/actuation 2 inh inhalation QID 10/29/22 10/01/23 Unknown History aerosol inhaler fluticasone propionate 50 spray intranasal 10/29/22 09/19/23 Unknown History mcg/actuation nasal spray,suspension lorazepam 1 mg tablet 1 mg PO BID PRN (Drug) Ingestion 10/29/22 10/01/23 Unknown History zolpidem 10 mg tablet 10 mg PO BEDTIME 10/29/22 10/01/23 Unknown History oxycodone 20 mg tablet,crush 20 mg PO BID 11/13/22 10/01/23 Unknown History resistant,extended release 12 hr lidocaine 5 % topical patch 2 patch topical DAILY 11/22/22 10/01/23 Unknown History naloxone 4 mg/actuation nasal spray 0 spray intranasal 11/22/22 09/19/23 Unknown History pregabalin 300 mg capsule 300 mg PO BID 11/22/22 10/01/23 Unknown History valacyclovir 1 gram tablet 1,000 mg PO DAILY 03/27/23 10/01/23 Unknown History buspirone 10 mg tablet 10 mg PO BID 06/04/23 10/01/23 Unknown History cetirizine 10 mg tablet 10 mg PO DAILY 06/04/23 10/01/23 Unknown History naproxen 500 mg tablet 500 mg PO BID 06/04/23 10/01/23 Unknown History prednisolone acetate 1 % eye drp ophthalmic (eye) 06/04/23 09/19/23 Unknown History drops,suspension prednisolone sodium phosphate 5 mg 2 mg PO QID 06/04/23 09/19/23 Unknown History base/5 mL (6.7 mg/5 mL) oral soln triamcinolone acetonide 55 mcg 1 spray intranasal DAILY 06/04/23 10/01/23 Unknown History nasal spray aerosol (Nasacort) Exam Airway Mallampati Class: II TM Dist: >3cm Neck ROM: Full Heart: rrr Lungs: cta Assessment and Plan Assessment Anesthesia Assessment: Anesthesia Plan Discussed Final Anesthetic Review Family History of Problems with Anesthesia: No History of Problems with Anesthesia: No NPO: Yes ASA Class: III Final Preanesthetic Review: No Changes in Pt Med Stat, Meds/Allgs Chart Reviewed, Consent Obtained/Reviewed and Anes Risks/Benef Reviewed Patient Risk: Intermediate Procedure Risk: Low Anesthetic Plan Anesthetic Plan: MAC: Disposition: Standard PACU
--- NOTE | 2023-10-01 06:13 | MHC.SHP ---
Pre-Procedural Eval Section A - 24 Hr Update-Section A only Date of Service: 10/01/23 Section B - Complete if H&P > 30 days Chief Complaint: hemorrhoids,idiopathic constipation,reflux disease Details of Present Illness: mother CRC Relevant Family History (Specify if Yes): Yes Relevant Social History: Tobacco Use Present Medications: see Short Stay Collaborative assessment Medical History: Significant History (Hx of nephrolithotomy with removal of calculi Swelling of finger joint of right hand Swelling of finger joint of left hand Hypocalcemia Coronary artery calcification seen on CAT scan Dyspnea Pulmonary nodules COPD (chronic obstructive pulmonary disease) Chest pain Pulmonary emboli Urinary urgency Hx) History of Previous Operations: Relevant previous surgery/procedure and date(s) (Hx of tubal ligation Hx of hand surgery Hx of parathyroidectomy Hx of kyphoplasty History of back surgery History of esophagogastroduodenoscopy (EGD) Hx of colonoscopy) Allergies: Allergies Allergy/AdvReac Type Severity Reaction Status Date / Time romosozumab-aqqg Allergy Severe Hives Verified 09/25/23 15:13 [From Evenity] Penicillins [PENICILLINS] Allergy Intermediate RASH/HIVES Verified 09/25/23 15:13 alendronate sodium Allergy Wheezing Verified 09/25/23 15:13 dexamethasone Allergy Eye Verified 09/25/23 15:13 Swelling adalimumab [From Humira] AdvReac Intermediate Chest Pain Verified 09/25/23 15:13 Review of Systems Sugical H&P ROS: Negative: Constitution, Cardiovascular, Respiratory, Neurological, Psychiatric, Hem-Onc, Allergic/Immunologic, Gastrointestinal, Genitourinary, Musculoskeletal, Integumentary, Endocrine and Eyes/Ears/Nose/Throat Exam Surgical H&P Exam: Normal: HEENT, Normal: Heart, Normal: Lungs, Normal: Extremities, Normal: Abdomen, Normal: Skin and Normal: Neurological Plan Diagnosis/Plan: Unchanged I have reviewed the history and physical and performed a pertinent physical examination on my patient. No changes have occurred unless specified. Time Spent With Patient Time: Total time managing care of this patient today ____ minutes.
[2023-10-01 07:30] VITALS: BMI 20.5
[2023-10-01 07:50] VITALS: BP 140/87; PULSE 79; RESP 16; TEMP 36.4; O2SAT 98
[2023-10-01] MEDS: Lactated Ringers 1,000 ML 100 ML IVCONT (08:04)
--- NOTE | 2023-10-01 08:51 | W.PM.OPN ---
Operative Note Operative Note Date of Service: 10/01/23 Narrative: Operative Information Procedure Description: EGD, Colonoscopy Indication: GERD, dysphagia, hx of colon poylps and FH of CRC Anesthesia: [] FLEXIBLE TRANSORAL UPPER GASTROINTESTINAL ENDOSCOPY AND COLONOSCOPY PROCEDURE NOTE UPPER ENDOSCOPY Consent: Indications for the procedure and potential complications of bleeding, perforation, reaction to medications and missed diagnosis were discussed with the patient and informed consent was obtained. Instrument: Olympus GIF H 190 J mid size upper endoscope Monitoring: Vital signs and clinical assessment, continuous EKG monitoring, Pulse oximetry, Carbon Dioxide monitoring and blood pressure monitoring were done throughout the procedure. Procedure: The patient was placed in the left lateral decubitis position and pre-procedure medications were administered and a bite block was placed. The endoscope was inserted into the mouth and advanced under direct vision to the third part of duodenum. A careful inspection was made as the upper endoscope was withdrawn including a retroflexed examination of the proximal stomach; Findings and interventions are described below. Findings: Larynx:normal Esophagus: GE junction at 35 cm, diaphragm hiatus at 35 cm, mild esophagitis, bx taken from GEJ, distal and proximal esophagus, balloon dilation of LES and UES to 20 mm, no tears seen Stomach: Patchy erythema with few erosions seen in distal body. Biopsies were obtained. Grade 2 flap valve on retroflexed examination of the cardia. Duodenum: Mild bulbar duodenitis, bx taken Intervention: Biopsies as noted above, balloon dilation COLONOSCOPY Instrument: Olympus variable stiffness pediatric scope 190L Colonoscopy Monitoring: Vital signs and clinical assessment, continuous EKG monitoring, Pulse oximetry, Carbon Dioxide monitoring and blood pressure monitoring were done throughout the procedure. Colon withdrawal time was 13 minutes. Procedure: The patient was placed in the left lateral decubitis position and pre-procedure medications were administered. After a digital rectal examination of the ano-rectum, the video colonoscope was inserted into the rectum and advanced through the colon to the cecum/TI. The colonoscope was slowly withdrawn in a retrograde panoramic fashion and the colon mucosa was carefully examined including a retroflexed view of the rectum. Findings and interventions are described below. Procedure Difficulty:moderate Findings: Terminal Ileum-normal Cecum:normal Ascending Colon: normal Transverse Colon -normal Descending Colon:normal Sigmoid Colon: normal Rectum: Retroflexion with small internal hemorrhoids, grade I Anorectum - normal Colon preparation: Kincaid Bowel Preparation Scale Right colon; 2 Transverse colon: 2 Left colon; 2 (0 = Unprepared colon segment with mucosa not seen due to solid stool that cannot be cleared. 1 = Portion of mucosa of the colon segment seen, but other areas of the colon segment not well seen due to staining, residual stool and/or opaque liquid. 2 = Minor amount of residual staining, small fragments of stool and/or opaque liquid, but mucosa of colon segment seen well. 3 = Entire mucosa of colon segment seen well with no residual staining, small fragments of stool or opaque liquid) Impression and Post Procedure Diagnosis: Endoscopy Findings: gastritis duodenitis mild esophagitis Colonoscopy Findings: internal hemorrhoids Plan: Await Pathology results Repeat Colonoscopy in 5 years due to FH of CRC or earlier if clinically indicated High fiber diet leaflet avoid straining at stool, epsom salts and sitz bath, anusol supps or cream check compliance with PPI, consider changing naprosyn to celebrex --if ongoing dysphagia, manometry or MORALES Above findings were reviewed with the patient and relevant handouts were provided if indicated.
[2023-10-01 09:20] VITALS: BP 106/65; PULSE 65; RESP 14; TEMP 36.1; O2SAT 100
[2023-10-01 09:35] VITALS: BP 134/78; PULSE 71; RESP 16; TEMP 36.6; O2SAT 97
--- NOTE | 2023-10-01 10:09 | PC.NURSE ---
dr. lomax visited patient in discharge.
== END 2023-10-01 10:10 | disposition home or self-care (01) ==
PROVIDERS: PCP Internal Medicine; Visit Provider Internal Medicine Gastroenterology
PROC: (CPT 43249; principal; 2023-10-01 08:30)
DX: K29.60 Other gastritis without bleeding (principal); K20.80 Other esophagitis without bleeding; K29.80 Duodenitis without bleeding; K64.8 Other hemorrhoids; K21.9 Gastro-esophageal reflux disease without esophagitis; K59.04 Chronic idiopathic constipation; Z86.010 Personal history of colon polyps; Z80.0 Family history of malignant neoplasm of digestive organs; J44.9 Chronic obstructive pulmonary disease, unspecified; M05.9 Rheumatoid arthritis with rheumatoid factor, unspecified; Z86.711 Personal history of pulmonary embolism; Z79.899 Other long term (current) drug therapy
CPT/HCPCS: 43249; 43239; G0105; 88305; 88313; 88342; C1726; J2704

== ENCOUNTER → 2023-10-01 07:04 | Outpatient (BNV) | payer MEDICARE, MEDICAID, SELFPAY | PROVIDERS: PCP Internal Medicine; Visit Provider Internal Medicine Gastroenterology | DX: Z12.11 Encounter for screening for malignant neoplasm of colon (principal); Z86.010 Personal history of colon polyps; Z80.0 Family history of malignant neoplasm of digestive organs; K64.0 First degree hemorrhoids; K21.00 Gastro-esophageal reflux disease with esophagitis, without bleeding; R13.10 Dysphagia, unspecified; K29.70 Gastritis, unspecified, without bleeding; K29.80 Duodenitis without bleeding | CPT/HCPCS: 43239; 43249; G0105 ==

== ENCOUNTER 2023-10-17 08:58 | Outpatient (REF) | payer MEDICARE, MEDICAID, SELFPAY ==
--- NOTE | ~2023-10-17 | US_ITS ---
EXAMINATION: ULTRASOUND RENAL WITH DOPPLER CLINICAL INFORMATION: Hypertension COMPARISON: CT without contrast from 02/20/2023 TECHNIQUE: Real-time grayscale, color Doppler, and duplex Doppler evaluation of the kidneys and renal vasculature was performed. FINDINGS: RENAL MEASUREMENTS: Right: 10.4 x 4.0 x 5.0 cm (Sag x AP x TV) Left: 10.3 x 4.5 x 4.6 cm (Sag x AP x TV) The renal parenchyma appears normal. No hydronephrosis. Multiple punctate nonshadowing echogenic foci seen in the bilateral kidneys which could represent nonshadowing stones however none were present on the prior exam and are likely artifactual in nature. These measure up to 2-3 mm in size bilaterally DOPPLER INTERROGATION: Aorta: 51.2 cm/sec Right Main Renal Artery: Proximal: 128 cm/sec Mid: 91.8 cm/sec Distal: 122 cm/sec Right Segmental Renal Artery Resistive Indices: Upper: 0.73 Mid: 0.77 Lower: 0.73 Left Main Renal Artery: Proximal: 97.6 cm/sec Mid: 102 cm/sec Distal: 61.2 cm/sec Left Segmental Renal Artery Resistive Indices: Upper: 0.81 Mid: 0.73 Lower: 0.73 The bilateral renal veins are patent. US/US renal doppler IMPRESSION: 1. Normal appearance of the bilateral kidneys. No hydronephrosis. 2. Normal Doppler evaluation of the bilateral renal arteries.
--- NOTE | ~2023-10-17 | US_ITS ---
EXAMINATION: ULTRASOUND RENAL WITH DOPPLER CLINICAL INFORMATION: Hypertension COMPARISON: CT without contrast from 02/20/2023 TECHNIQUE: Real-time grayscale, color Doppler, and duplex Doppler evaluation of the kidneys and renal vasculature was performed. FINDINGS: RENAL MEASUREMENTS: Right: 10.4 x 4.0 x 5.0 cm (Sag x AP x TV) Left: 10.3 x 4.5 x 4.6 cm (Sag x AP x TV) The renal parenchyma appears normal. No hydronephrosis. Multiple punctate nonshadowing echogenic foci seen in the bilateral kidneys which could represent nonshadowing stones however none were present on the prior exam and are likely artifactual in nature. These measure up to 2-3 mm in size bilaterally DOPPLER INTERROGATION: Aorta: 51.2 cm/sec Right Main Renal Artery: Proximal: 128 cm/sec Mid: 91.8 cm/sec Distal: 122 cm/sec Right Segmental Renal Artery Resistive Indices: Upper: 0.73 Mid: 0.77 Lower: 0.73 Left Main Renal Artery: Proximal: 97.6 cm/sec Mid: 102 cm/sec Distal: 61.2 cm/sec Left Segmental Renal Artery Resistive Indices: Upper: 0.81 Mid: 0.73 Lower: 0.73 The bilateral renal veins are patent. US/US renal BI IMPRESSION: 1. Normal appearance of the bilateral kidneys. No hydronephrosis. 2. Normal Doppler evaluation of the bilateral renal arteries.
== END 2023-10-17 08:59 | disposition home or self-care (01) ==
LOC: HO.US 08:58
PROVIDERS: PCP Internal Medicine; Visit Provider Internal Medicine Nephrology
DX: I10 Essential (primary) hypertension (principal)
CPT/HCPCS: 76775; 93975

== ENCOUNTER 2023-10-18 14:44 | Outpatient (REF) | payer MEDICARE, MEDICAID, SELFPAY ==
[2023-10-22 15:47] LABS: H Pylori Breath Test Negative (Negative)
== END 2023-10-18 14:45 | disposition home or self-care (01) ==
LOC: HO.LNP 14:44
PROVIDERS: Visit Provider Internal Medicine Gastroenterology
DX: Z11.2 Encounter for screening for other bacterial diseases (principal)
CPT/HCPCS: 83013; 99211

== ENCOUNTER 2023-10-25 12:39 | Outpatient (AMB) | payer MEDICARE, MEDICAID, SELFPAY ==
--- NOTE | 2023-10-25 12:43 | A.OFFVIS_ITS ---
Intake Vital Signs 10/25/23 12:53 Height 5 ft 3 in Weight 116 lb 13.52 oz BMI 20.7 BP 135/82 Blood Pressure Location Lt brachial Position Sitting Pulse 80 Intake Visit Reasons: s/p double Allergies [id number] [From Evenity] Allergy (Severe, Verified 10/25/23 12:53) Hives Penicillins [PENICILLINS] Allergy (Intermediate, Verified 10/25/23 12:53) RASH/HIVES dexamethasone Allergy (Verified 10/25/23 12:53) Eye Swelling adalimumab [From Humira] Adverse Reaction (Intermediate, Verified 10/25/23 12:53) Chest Pain HPI s/p double HPI Details Assessment & Plan (1) GERD (gastroesophageal reflux diseas e): Code(s): K21.9 - Gastro-esophageal reflux disease without esophagitis Plan: She is very unhappy with the new check in system. She continues to have very bad GERD despite being on the AcipHex bid. BUT her anxiety is very bad and she takes daily diclofenac. We will get HP stool, barium swallow and EGD added to her colonoscopy. She cannot identify any other new medication she did start a new osteoporosis medication but her heartburn problems proceeded this. Prior to that she was on alendronate which does contribute to GERD so this is probably move in a better direction. (Sammy (romosozumab-aqqg)) Will add famotidine for breakthrough, but educated to us prn since she has osteoporosis. She continues on her Linzess, dicyclomine, simethicone with good control of her bowels.. She also has bisacodyl for p.r.n. use for her constipation. She also uses Proctosol cream when she has hemorrhoidal complications with good results. The she continues to struggle with back pain after her compression fractures and she says that she is going to need more work on her back before it alleviates her symptoms. ROV after barium swallow. (2) Chronic idiopathic constipation: Code(s): K59.04 - Chronic idiopathic constipation (3) Bleeding hemorrhoids: Code(s): K64.9 - Unspecified hemorrhoids (4) Proctalgia fugax: Code(s): K59.4 - Anal spasm (5) Dysphagia: Code(s): R13.10 - Dysphagia, unspecified Orders: Orders FL barium swallow Today K21.9 - Gastro-eso phageal reflux dis ease without esoph agitis, R13.10 - D ysphagia, unspecif ied H pylori Ag Stool Today R13.10 - Dysphagia , unspecified Medications: New famotidine (Pepcid ) 40 mg PO BID 60 t abs 3RF K21.9 - Gastro-eso phageal reflux dis ease without esoph agitis, R13.10 - D ysphagia, unspecif ied LABS: Laboratory Tests 10/18/23 12:31 H. pylori Breath T est Negative BARIUM SWALLOW 07/31/23 FINDINGS: Lateral cine images of the oropharynx and hypopharynx demonstrate normal swallow mechanism with normal epiglottic inversion and soft palate elevation. There was trace laryngeal penetration above the cords with the thick barium. No subglottic or tracheal aspiration is seen. No nasopharyngeal reflux present. Hypopharyngeal structures appear normal without evidence of mass or diverticulum. There was no significant cricopharyngeal achalasia. Surgical clips are present in the neck, consistent with prior history of parathyroidectomy. Dual and single contrast images of the esophagus demonstrate normal caliber, contour, and mucosal pattern. No evidence of stricture, mass, or ulcerations identified. Primary esophageal peristalsis was normal. Nonpropulsive tertiary contractions are noted in the mid and distal esophagus. A small type I hiatal hernia is present. No significant gastroesophageal reflux was seen during the course of the examination and on reflux views. Dual contrast and single contrast images of the stomach demonstrated mildly diffusely thickened gastric folds, possibly on the basis of poor retention of effervescent granule gas and suboptimal distention, although gastritis not excluded. Contrast freely passed into the gastric antrum and duodenal bulb without delay. Single and air-contrast images of the duodenal bulb demonstrate no abnormality. The duodenal sweep has a normal appearance, course, and mucosal fold appearance. The imaged proximal jejunum has a normal fold pattern and caliber. Vertebroplasty changes are noted in the L2 and L3 vertebral bodies. FLUOROSCOPY TIME: 4 minutes 19 seconds Number of Spot Images: 12 Number of Cine: 10 DOSE AREA PRODUCT: 2002 uGy-m2 (microgray-meter squared) FL/FL barium swallow with air IMPRESSION: 1. Trace laryngeal penetration with thic k barium. No gross subglottic aspiration. 2. Postsurgical changes in the neck cons istent with prior history of parathyroidectomy. 3. Mild esophageal dysmotility. 4. Small type I hiatal hernia. 5. Thickened gastric folds present, poss ibly due to poor distention due to loss of insufflation from effervescent granules, although gastritis is also a possibility. Consider follow-up with EGD. 6. Vertebroplasty changes noted in the L 2 and L3 vertebral bodies. EGD/COLONOSCOPY 10/01/23 Findings: Larynx:normal Esophagus: GE junction at 35 cm, diaphragm hiatus at 35 cm, mild esophagitis, bx taken from GEJ, distal and proximal esophagus, balloon dilation of LES and UES to 20 mm, no tears seen Stomach: Patchy erythema with few erosions seen in distal body. Biopsies were obtained. Grade 2 flap valve on retroflexed examination of the cardia. Duodenum: Mild bulbar duodenitis, bx taken Findings: Terminal Ileum-normal Cecum:normal Ascending Colon: normal Transverse Colon -normal Descending Colon:normal Sigmoid Colon: normal Rectum: Retroflexion with small internal hemorrhoids, grade I Anorectum - normal Impression and Post Procedure Diagnosis: Endoscopy Findings: gastritis duodenitis mild esophagitis Colonoscopy Findings: internal hemorrhoids Plan: Await Pathology results Repeat Colonoscopy in 5 years due to FH of CRC or earlier if clinically indicated High fiber diet leaflet avoid straining at stool, epsom salts and sitz bath, anusol supps or cream check compliance with PPI, consider changing naprosyn to celebrex --if ongoing dysphagia, manometry or MORALES BIOPSY Received: 10/01/23 Diagnosis A. Duodenum, biopsy: Chronic inactive duodenitis. B. Stomach, biopsy: Antral-type and oxyntic mucosa with moderate chronic inactive inflammation; no Helicobacter organisms seen. C. GE junction, biopsy: - Cardiofundic-type mucosa with mild chr onic inactive inflammation; no intestinal metaplasia seen. - No squamous epithelium seen. D. Esophagus, distal, biopsy: Squamous epithelium within normal limits; no inflammation seen. E. Esophagus, proximal, biopsy: Squamous epithelium within normal limits; no inflammation seen CORRESPONDENCE On 05/10/23 @ 09:14 Beatriz Shipman Wrote To SarikaOctober noted, i will add an alert for july to reach out to patient to reschedule then, will need the clearance in place first Beatriz Shipman removed from item. On 05/10/23 @ 09:03 Jelly Brar Wrote To Beatriz Shipman (2) yes notified OR- will need to be R/S sometime in July. On 05/10/23 @ 08:53 Beatriz Shipman Wrote To SarikaOctober (2) is this being canceld again? On 05/10/23 @ 08:45 Jelly Brar Wrote To SarikaOctober (2) Sorry procedure is 06/06, not 05/27. On 05/10/23 @ 08:43 Jelly Brar Wrote To SarikaOctober (2) Looks like she did not have her echo/ stress test on 05/07, she is rescheduled for 07/19. Her EGD/[place] is 05/27 with F/U appt on 06/20- October would you like me to cancel this appt? I will call her to cancel, and notify OR. On 04/09/23 @ 15:48 Jelly Brar Wrote To Jelly Brar noted On 04/09/23 @ 15:35 Wendy Baum Wrote To Jelly Brar I say have her PCP tell us when it is okay to proceed before rescheduling. On 04/09/23 @ 11:23 Jelly Brar Wrote To SarikaOctober spoke with patient regarding upper endoscopy/ colonoscopy on 04/12 that she will need to R/S and have cardiology workup first. Patient reported her PCP wanted her to put her procedures on hold also since she was having S/E from [facility] - currently off this. Patients upper/ colo R/S for 05/27. On 04/09/23 @ 10:57 Jelly Brar Wrote To SarikaOctober Trip October, * see notes below. Looks like Brisa's upper Endo and colo will have to be R/S. Do you need to put in cardiac pre op exam? not sure how that works. On 04/09/23 @ 10:28 Annamarie Milan Wrote To Jelly Brar Trip [place], Looks like Dr Sahni wants her to have an echo and a stress due to complaints of chest pain. We should have those results before proceeding with GI procedures. Thanks. On 04/09/23 @ 09:38 Jelly Brar Wrote To Annamarie Milan Trip De Luna, looking ahead, Brisa was seen by cardiology (Dr. Sahni) on 03/27 for chest pain and SOB having this since she underwent Vertebroplasty in september and small amt of cement went into left P.A. She has f/u in cardiology 05/13, looks like she is having an echo. Should I message cardiology if the procedure should be postponed until further w/u? thoughts? TY TODAY'S VISIT She is on bid Aciphex, famotidine for breakthrough, but educated to us prn since she has osteoporosis. She continues on her Linzess, dicyclomine, simethicone with good control of her bowels.. She also has bisacodyl for p.r.n. use for her constipation. She also uses Proctosol cream when she has hemorrhoidal complications with good results. Her uncle a few weeks ago from stomach ca. She had a very upset stomach from drinking the HP prep and from holding her aciphex for 2 weeks (Dr. Braga ordered). She was also given carafate but this did not help at all. Her stomach has settled after restarting her rabeprazole. For now she is satisfied with her GI regimen and agreeable to a 6 month follow- up. [facility] Medical History Hx of nephrolithotomy with removal of calculi Swelling of finger joint of right hand Swelling of finger joint of left hand Hypocalcemia Coronary artery calcification seen on CAT scan Dyspnea Pulmonary nodules COPD (chronic obstructive pulmonary disease) Chest pain Pulmonary emboli Urinary urgency Hx of hemorrhoids Seropositive rheumatoid arthritis Surgical History Hx of tubal ligation Hx of hand surgery Hx of parathyroidectomy Hx of kyphoplasty History of back surgery History of esophagogastroduodenoscopy (EGD) Hx of colonoscopy Family History Father Cancer Mother Colon cancer HTN (hypertension) Diabetes Breast cancer Brother Lupus HTN (hypertension) Kidney transplanted Sister HTN (hypertension) Cancer Liver transplanted Other FH: cancer FH: mental illness Social History Household Members: None Housing: House Alcohol intake: former Patient Tobacco Use Status: Current everyday Tobacco user Tobacco use type: Cigarette Cigarettes Per Day: 5 Years Smoked: 43 Review of Systems Const Denies fatigue, Denies fever(s), Denies night sweats, Denies poor appetite and Denies weight loss Eyes Details: glasses Reports requires corrective lenses ENT Reports Normal hearing present, Denies dental pain, Denies dysphagia, Denies hearing loss, Denies mouth pain, Denies odynophagia, Denies throat swelling, Denies tongue swelling and Reports other (Dentition adequate) Card Reports no additional complaints Resp Reports no additional complaints GI Details: Denies abdominal pain, Denies melena, Denies bloating, Denies hematochezia, Reports constipation, Reports GI cramping, Denies dysphagia, Denies excessive flatus, Denies early satiety, Reports dyspepsia, Reports heartburn, Denies diarrhea, Denies nausea, Denies odynophagia, Denies vomiting and Denies hematemesis Musc Reports back pain Skin/Breast Denies pruritus, Denies lesions, Denies rash and Denies jaundice Neuro Reports Normal hearing present and Denies Abnormal speech present Endo Denies fatigue Aller/Immun Denies throat swelling and Denies tongue swelling Physical Exam Vital Signs: Last Vital Signs Pulse 80 10/25/23 12:53 BP 135/82 10/25/23 12:53 BMI result Body Mass Index 20.7 Const General: cooperative, no acute distress, well developed and well groomed Nutritional Appearance: average body habitus and well nourished Orientation/consciousness: oriented to person, oriented to place and oriented to time Limitations: No language barrier HEENT Head: Yes normocephalic and Yes atraumatic Eyes General: appearance normal, both eyes and all related structures Pupils: Equal, round and reactive pupils present Neck Neck: Yes normal visual inspection and Yes no lymphadenopathy Thyroid: Thyroid normal Resp Effort & Inspection: normal respiratory effort and able to speak in complete sentences Auscultation: clear to auscultation bilaterally Cardio Rate: regular rate Rhythm: regular rhythm Heart sounds: Normal, physiologic split S2 sound present Peripheral pulses: radial pulses present and posterior tibial pulses present GI Inspection: No distended and No Abdominal panniculus present Palpation (GI): Soft to palpation, nontender, no guarding, not rigid and No hepatosplenomegaly present Percussion: Yes normal to percussion Auscultation: normal bowel sounds Rectal Exam - Female: deferred Skin General skin exam: no rashes or lesions noted, turgor normal, skin not dry, no jaundice, No spider nevi and no striae Rashes: no rashes Nails: normal Neuro General: oriented to person, oriented to place and oriented to time Cranial nerves: Yes Equal, round and reactive pupils present and Yes Normal hearing present Speech: No Abnormal speech present Extrem General: Yes normal to inspection, No clubbing, No cyanosis and No edema Psych Appearance: grossly normal and well kempt Mental Status: mental status grossly normal Speech and movement: Normal speech and movement present Affect: normal affect Attitude: cooperative Thought process: Normal thought process present and not confabulating Thought content: Normal thought content present Insight: Fair insight present (Psych) and Limited insight present (Psych) Judgement: Fair judgement present (Psych) and Limited judgement present (Psych) Results Reviewed Results Reviewed: Laboratory Tests 10/18/23 12:31 H. pylori Breath Test Negative BARIUM SWALLOW 07/31/23 FINDINGS: Lateral cine images of the oropharynx and hypopharynx demonstrate normal swallow mechanism with normal epiglottic inversion and soft palate elevation. There was trace laryngeal penetration above the cords with the thick barium. No subglottic or tracheal aspiration is seen. No nasopharyngeal reflux present. Hypopharyngeal structures appear normal without evidence of mass or diverticulum. There was no significant cricopharyngeal achalasia. Surgical clips are present in the neck, consistent with prior history of parathyroidectomy. Dual and single contrast images of the esophagus demonstrate normal caliber, contour, and mucosal pattern. No evidence of stricture, mass, or ulcerations identified. Primary esophageal peristalsis was normal. Nonpropulsive tertiary contractions are noted in the mid and distal esophagus. A small type I hiatal hernia is present. No significant gastroesophageal reflux was seen during the course of the examination and on reflux views. Dual contrast and single contrast images of the stomach demonstrated mildly diffusely thickened gastric folds, possibly on the basis of poor retention of effervescent granule gas and suboptimal distention, although gastritis not excluded. Contrast freely passed into the gastric antrum and duodenal bulb without delay. Single and air-contrast images of the duodenal bulb demonstrate no abnormality. The duodenal sweep has a normal appearance, course, and mucosal fold appearance. The imaged proximal jejunum has a normal fold pattern and caliber. Vertebroplasty changes are noted in the L2 and L3 vertebral bodies. FLUOROSCOPY TIME: 4 minutes 19 seconds Number of Spot Images: 12 Number of Cine: 10 DOSE AREA PRODUCT: 2002 uGy-m2 (microgray-meter squared) FL/FL barium swallow with air IMPRESSION: 1. Trace laryngeal penetration with thick barium. No gross subglottic aspiration. 2. Postsurgical changes in the neck consistent with prior history of parathyroidectomy. 3. Mild esophageal dysmotility. 4. Small type I hiatal hernia. 5. Thickened gastric folds present, possibly due to poor distention due to loss of insufflation from effervescent granules, although gastritis is also a possibility. Consider follow-up with EGD. 6. Vertebroplasty changes noted in the L2 and L3 vertebral bodies. EGD/COLONOSCOPY 10/01/23 Findings: Larynx:normal Esophagus: GE junction at 35 cm, diaphragm hiatus at 35 cm, mild esophagitis, bx taken from GEJ, distal and proximal esophagus, balloon dilation of LES and UES to 20 mm, no tears seen Stomach: Patchy erythema with few erosions seen in distal body. Biopsies were obtained. Grade 2 flap valve on retroflexed examination of the cardia. Duodenum: Mild bulbar duodenitis, bx taken Findings: Terminal Ileum-normal Cecum:normal Ascending Colon: normal Transverse Colon -normal Descending Colon:normal Sigmoid Colon: normal Rectum: Retroflexion with small internal hemorrhoids, grade I Anorectum - normal Impression and Post Procedure Diagnosis: Endoscopy Findings: gastritis duodenitis mild esophagitis Colonoscopy Findings: internal hemorrhoids Plan: Await Pathology results Repeat Colonoscopy in 5 years due to FH of CRC or earlier if clinically indicated High fiber diet leaflet avoid straining at stool, epsom salts and sitz bath, anusol supps or cream check compliance with PPI, consider changing naprosyn to celebrex --if ongoing dysphagia, manometry or MORALES BIOPSY Received: 10/01/23 Diagnosis A. Duodenum, biopsy: Chronic inactive duodenitis. B. Stomach, biopsy: Antral-type and oxyntic mucosa with moderate chronic inactive inflammation; no Helicobacter organisms seen. C. GE junction, biopsy: - Cardiofundic-type mucosa with mild chronic inactive inflammation; no intestinal metaplasia seen. - No squamous epithelium seen. D. Esophagus, distal, biopsy: Squamous epithelium within normal limits; no inflammation seen. E. Esophagus, proximal, biopsy: Squamous epithelium within normal limits; no inflammation seen Assessment & Plan Assessment & Plan (1) GERD (gastroesophageal reflux disease): Code(s): K21.9 - Gastro-esophageal reflux disease without esophagitis (2) Chronic idiopathic constipation: Code(s): K59.04 - Chronic idiopathic constipation (3) Proctalgia fugax: Code(s): K59.4 - Anal spasm Plan She is on bid Aciphex, famotidine for breakthrough, but educated to us prn since she has osteoporosis. She continues on her Linzess, dicyclomine, simethicone with good control of her bowels.. She also has bisacodyl for p.r.n. use for her constipation. She also uses Proctosol cream when she has hemorrhoidal complications with good results. Her uncle a few weeks ago from stomach ca. She had a very upset stomach from drinking the HP prep and from holding her aciphex for 2 weeks (Dr. Braga ordered). She was also given carafate but this did not help at all. Her stomach has settled after restarting her rabeprazole. For now she is satisfied with her GI regimen and agreeable to a 6 month follow- up. Medications: Refilled dicyclomine 20 mg PO QID 120 tabs 2RF simethicone 180 mg PO QID 120 caps 2RF R14.0 - Abdominal distension (gaseous) bisacodyl 10 mg (2 x 5 mg) PO BEDTIME 60 tabs 6RF K59.04 - Chronic idiopathic constipation linaclotide (Linzess) 290 mcg PO DAILY 30 caps 6RF K59.04 - Chronic idiopathic constipation Discontinued sucralfate (Carafate) swish in mouth and swallow; use after food/drink Discontinued Reason: Doctor's Order 10 mL PO QID 1,000 mL 0RF Coding Level of Care Code Est Pt Level 3 (68190) Diagnoses GERD (gastroesophageal reflux disease) K21.9 Chronic idiopathic constipation K59.04 Proctalgia fugax K59.4
[2023-10-25 12:53] VITALS: BP 135/82; PULSE 80; BMI 20.7
== END 2023-10-25 13:44 | disposition home or self-care (01) ==
PROVIDERS: PCP Internal Medicine; Visit Provider Nurse Practitioner
DX: K21.9 Gastro-esophageal reflux disease without esophagitis (principal); K59.04 Chronic idiopathic constipation; K59.4 Anal spasm
CPT/HCPCS: 99213

== ENCOUNTER → 2023-10-25 12:39 | Outpatient (BNVA) | payer MEDICARE, MEDICAID, SELFPAY | PROVIDERS: PCP Internal Medicine; Visit Provider Nurse Practitioner | DX: K21.9 Gastro-esophageal reflux disease without esophagitis (principal); K59.04 Chronic idiopathic constipation; K59.4 Anal spasm | CPT/HCPCS: 99212 ==

== ENCOUNTER 2023-10-30 12:38 | Outpatient (REF) | payer MEDICARE, MEDICAID, SELFPAY ==
[2023-10-30 14:18] LABS: Basophils Absolute Auto 0.1 X10*3/uL (0.0-0.2); Basophils Percent Auto 1.1 % (0-2); Eosinophils Absolute Auto 0.1 X10*3/uL (0.0-0.4); Eosinophils Percent Auto 1.1 % (0-4); Hematocrit 39.3 % (37.0-47.0); Hemoglobin 12.9 g/dl (12.0-16.0); Imm Gran Abs Auto 0.02 X10*3/uL (0.00-0.03); Imm Gran Pct Auto 0.4 % (0.0-0.4); Lymphocytes Absolute Auto 1.4 X10*3/uL (1.2-4.9); Lymphocytes Percent Auto 25.9 % (20-40); MANUAL DIFF FLAG SCAN; Mean Corpuscular HGB Conc 32.8 g/dl (31.0-35.0); Mean Corpuscular Hemoglobin 29.1 pg (27.0-33.0); Mean Corpuscular Volume 88.7 fL (80.0-98.0); Monocytes Absolute Auto 0.3 X10*3/uL (0.1-1.2); Monocytes Percent Auto 5.5 % (2-11); Neutrophils Absolute Auto 3.6 x10*3/uL (2.0-8.3); PLT CLUMP 1; Red Blood Count 4.43 X10*6/uL (4.20-5.50); Red Cell Distribution Width 13.8 % (11.0-16.0); SCAN SMEAR FLAG 1
[2023-10-30 14:30] LABS: Platelet Count 121 X10*3/uL (160-400); White Blood Count 5.5 X10*3/uL (4.8-10.8)
[2023-10-30 14:31] LABS: SLIDE REVIEW VERIFIED
[2023-10-30 14:52] LABS: Alanine Aminotransferase 9 U/L (0-31); Aspartate Amino Transferase 15 U/L (5-31); C Reactive Protein 0.25 mg/dL (< or = 0.50); Estimated Glomerular Filt Rate > 60
[2023-10-30 14:55] LABS: Erythrocyte Sedimentation Rate 10 MM/HR (0-20)
== END 2023-10-30 12:39 | disposition home or self-care (01) ==
LOC: HO.LAB 12:38
PROVIDERS: PCP Internal Medicine; Visit Provider Nurse Practitioner Family
DX: M05.9 Rheumatoid arthritis with rheumatoid factor, unspecified (principal); Z79.899 Other long term (current) drug therapy
CPT/HCPCS: 36415; 82565; 84450; 84460; 85025; 85652; 86140

== ENCOUNTER 2023-11-01 12:54 | Outpatient (REF) | payer MEDICARE, MEDICAID, SELFPAY | END 2023-11-01 12:55 | disposition home or self-care (01) | LOC: HO.MAMMO 12:54 | PROVIDERS: PCP Internal Medicine; Visit Provider Internal Medicine | DX: Z12.31 Encounter for screening mammogram for malignant neoplasm of breast (principal) | CPT/HCPCS: 77063; 77067 ==

== ENCOUNTER → 2023-11-01 13:00 | Outpatient (BNV) | payer MEDICARE, MEDICAID, SELFPAY | PROVIDERS: PCP Internal Medicine; Visit Provider Radiology Diagnostic Radiology | DX: Z12.31 Encounter for screening mammogram for malignant neoplasm of breast (principal) | CPT/HCPCS: 77063; 77067 ==

== ENCOUNTER 2023-11-06 13:40 | Outpatient (AMB) | payer MEDICARE, MEDICAID, SELFPAY ==
--- NOTE | 2023-11-06 13:47 | MHC.OFFVIS ---
Vital Signs 11/06/23 13:55 Height 5 ft 3 in Weight 115 lb 15.41 oz BMI 20.5 BP 128/76 Blood Pressure Location Rt brachial Position Sitting Pulse 93 Pulse Source Pulse Oximeter Pulse Oximetry (%) 99 Oxygen Delivery Method Room Air Intake Visit Reasons: RA Intake Note: Patient last seen 09/18/23, presents today for follow up. 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 Brisa Romero 58-year-old female presents today as a walk-in for urgent visit due to swelling to her right PIP joint and hand pain. She is currently on a prednisone taper. She did start Humira and had 2 injections but can not tell if it has making a difference. [facility] Medical History Hx of nephrolithotomy with removal of calculi Swelling of finger joint of right hand Swelling of finger joint of left hand Hypocalcemia Coronary artery calcification seen on CAT scan Dyspnea Pulmonary nodules COPD (chronic obstructive pulmonary disease) Chest pain Pulmonary emboli Urinary urgency Hx of hemorrhoids Seropositive rheumatoid arthritis Surgical History Hx of tubal ligation Hx of hand surgery Hx of parathyroidectomy Hx of kyphoplasty History of back surgery History of esophagogastroduodenoscopy (EGD) Hx of colonoscopy Family History Father Cancer Mother Colon cancer HTN (hypertension) Diabetes Breast cancer Brother Lupus HTN (hypertension) Kidney transplanted Sister HTN (hypertension) Cancer Liver transplanted Other FH: cancer FH: mental illness Social History Household Members: None Housing: House Alcohol intake: former Patient Tobacco Use Status: Current everyday Tobacco user Tobacco use type: Cigarette Cigarettes Per Day: 5 Years Smoked: 43 Review of Systems Const All systems reviewed & are unremarkable except as noted in HPI and below Physical Exam Vital Signs: Last Vital Signs Pulse 93 11/06/23 13:55 BP 128/76 11/06/23 13:55 Pulse Ox 99 11/06/23 13:55 Oxygen Delivery Method Room Air 11/06/23 13:55 BMI result Body Mass Index 20.5 APPEARANCE: Patient in no acute distress HEART:? Regular rhythm, S1-S2 heard, no murmurs, rubs or gallops. LUNG:? Clear to auscultation EXTREMITIES: No edema, no calf tenderness, normal peripheral pulses. JOINT EXAM: Hands: LEFT:? Most of the Tenderness and redness to the MCP, DIP and PIP joints has resolved except 3rd PIP joint. There is bony enlargement of the 2nd through 4th PIP joints. ? RIGHT: Resolved Pain and stiffness with range of motion in the 2nd and 3rd fingers. There is no more tenderness and warmth but no swelling in the MCP joints. There is mild bony enlargement of the thumb IP and in all the PIP joints. The 2nd 3rd have tenderness, swelling and warmth is resolved. Their range of motion is diminished. There is mild bony enlargement and but no more tenderness at the 2nd and 5th distal interphalangeal joints. No sensory loss or thenar atrophy. Wrists:? Right: Mild Pain with flexion extension at 75 degrees with slight tenderness and warmth but no swelling. Left: Normal pain-free range of motion but no tenderness, trace swelling, increased warmth and erythema. Feet: Diffuse tenderness over the heel, instep, MTP region and toes. However there is no swelling, increased warmth or erythema.? ? Assessment & Plan Assessment & Plan (1) Seropositive rheumatoid arthritis: Comment: Methotrexate: prior to 2018- October 2021 Leflunomide: October 2022 to present Humira 2023 Code(s): M05.9 - Rheumatoid arthritis with rheumatoid factor, unspecified Category: Medical (2) Swelling of finger joint of right hand: Code(s): M25.441 - Effusion, right hand Category: Medical (3) intermediate current use of immunosuppressive drug: Code(s): Z79.899 - Other terminal operator (current) drug therapy Category: Medical Plan #SeroPos RA/hand pain and swelling: The patient will continue Humira 40 mg every other week and continue leflunomide 20 mg per day. Most of the swelling to her hands are resolved except for the 3rd PIP left. ESR/CRP within normal range. The patient has a complex picture with osteoporosis. She is concerned whether the Humira can be taken in addition with her osteoporosis medication. We will stop Prednisone. #Long-term use: Continuous lab monitoring of CBC and CMP - within normal range to continue Medications. I also discussed with the patient when to hold the medication in the event of fevers, infections, surgery, and nonhealing wounds. Obtain labs before next visit I spent 25 minutes with the patient assessing, educating and counseling the patient and documenting Coding Level of Care Code Est Pt Level 3 (77507) Complex EM visit Add On G2211 Diagnoses Seropositive rheumatoid arthritis M05.9 Swelling of finger joint of right hand M25.441 intermediate current use of immunosuppressive drug Z79.899
[2023-11-06 13:55] VITALS: BP 128/76; PULSE 93; O2SAT 99; BMI 20.5
== END 2023-11-06 14:27 | disposition home or self-care (01) ==
PROVIDERS: PCP Internal Medicine; Visit Provider Nurse Practitioner Family
DX: M05.79 Rheumatoid arthritis with rheumatoid factor of multiple sites without organ or systems involvement (principal); M25.441 Effusion, right hand; Z79.899 Other long term (current) drug therapy
CPT/HCPCS: 99213; G2211

== ENCOUNTER → 2023-11-06 13:40 | Outpatient (BNVA) | payer MEDICARE, MEDICAID, SELFPAY | PROVIDERS: PCP Internal Medicine; Visit Provider Nurse Practitioner Family | DX: M05.9 Rheumatoid arthritis with rheumatoid factor, unspecified (principal); M25.441 Effusion, right hand; Z79.899 Other long term (current) drug therapy | CPT/HCPCS: 99212 ==

== ENCOUNTER 2023-11-08 13:22 | Outpatient (AMB) | payer MEDICARE, MEDICAID, SELFPAY ==
[2023-11-08 13:37] VITALS: BP 130/80; PULSE 75; O2SAT 98; BMI 20.8
--- NOTE | 2023-11-08 13:37 | HO.NEPHOV ---
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 She has history of parathyroidectomy with normalization of serum calcium and blood pressure for a while but lately her blood pressure has not been very controlled. She also has had pulmonary embolism and had been on anticoagulation. She had a brother who developed ESRD due to lupus nephritis. She had denies chest pain, nausea, vomiting, diarrhea, proximal nocturnal dyspnea or orthopnea. She claims to be compliant with her diet and medications. Her renal functions had been stable. She has been having flare of RA and is on prednisone. She is on leflunomide. She started on Esther. [facility] Medical History Hx of nephrolithotomy with removal of calculi Swelling of finger joint of right hand Swelling of finger joint of left hand Hypocalcemia Coronary artery calcification seen on CAT scan Dyspnea Pulmonary nodules COPD (chronic obstructive pulmonary disease) Chest pain Pulmonary emboli Urinary urgency Hx of hemorrhoids Seropositive rheumatoid arthritis Surgical History Hx of tubal ligation Hx of hand surgery Hx of parathyroidectomy Hx of kyphoplasty History of back surgery History of esophagogastroduodenoscopy (EGD) Hx of colonoscopy Family History Father Cancer Mother Colon cancer HTN (hypertension) Diabetes Breast cancer Brother Lupus HTN (hypertension) Kidney transplanted Sister HTN (hypertension) Cancer Liver transplanted Other FH: cancer FH: mental illness Social History Household Members: None Housing: House Alcohol intake: former Patient Tobacco Use Status: Current everyday Tobacco user Tobacco use type: Cigarette Cigarettes Per Day: 5 Years Smoked: 43 Physical Exam Vital Signs: Last Vital Signs Pulse 75 11/08/23 13:37 BP 142/80 H 11/08/23 13:37 Pulse Ox 98 11/08/23 13:37 Oxygen Delivery Method Room Air 11/08/23 13:37 BMI result Body Mass Index 20.8 Const General: comfortable and no acute distress Orientation/consciousness: patient oriented x3 HEENT Head: Yes normocephalic Mouth: Normal oral and palatal mucosa present Eyes EOM: EOMs intact bilaterally Neck Neck: Yes supple Resp Auscultation: clear to auscultation bilaterally Cardio Jugular venous distension: no JVD Rate: regular rate GI Palpation (GI): Soft to palpation Auscultation: normal bowel sounds General: Yes no CVA tenderness Back/Spine/Pelvis Back: no CVA tenderness Skin General skin exam: no rashes or lesions noted Neuro General: patient oriented x3 and moves all extremities Extrem General: Yes no pedal edema Results Reviewed Nephrology Results: Hgb 12.9 g/dl (12.0-16.0) 10/30/23 WBC 5.5 X10*3/uL (4.8-10.8) 10/30/23 Plt Count 121 X10*3/uL (160-400) L 10/30/23 Creatinine 0.72 mg/dL (0.5-1.4) 10/30/23 Renal US 10/17/23 Assessment & Plan Assessment & Plan (1) Hypertension: Code(s): I10 - Essential (primary) hypertension Category: Medical Qualifiers: Hypertension type: primary hypertension Qualified Code(s): I10 - Essential (primary) hypertension Plan Brisa has longstanding hypertension and is on multiple antihypertensive medications. Blood pressure is better controlled since last visit. She has no history of known retinopathy, left ventricular hypertrophy, proteinuria or renal dysfunction. She is on multiple antihypertensive medications . She had hypercalcemia with the primary hyperparathyroidism and had undergone parathyroid surgery. She should be on a low-sodium diet. She should continue metoprolol 100 mg daily along with Nifedipine 120 mg daily and Valsartan/HCTZ 320/25 mg AM. I plan to start Spironolactone 25 mg next week if her BP remains labile. Doppler of renal arteries were normal. I plan to check a renin, aldosterone, antiphospholipid antibody, urinalysis, urine protein creatinine ratio among other workup with time if needed. She is going to be followed up for ongoing monitoring and continued care. All her questions were answered.
== END 2023-11-08 13:59 | disposition home or self-care (01) ==
PROVIDERS: PCP Internal Medicine; Visit Provider Internal Medicine Nephrology
DX: I10 Essential (primary) hypertension (principal)
CPT/HCPCS: 99214

== ENCOUNTER → 2023-11-08 13:22 | Outpatient (BNVA) | payer MEDICARE, MEDICAID, SELFPAY | PROVIDERS: PCP Internal Medicine; Visit Provider Internal Medicine Nephrology | DX: I10 Essential (primary) hypertension (principal) | CPT/HCPCS: 99212 ==

== ENCOUNTER 2023-11-28 11:06 | Outpatient (REF) | payer MEDICARE, MEDICAID, SELFPAY ==
--- NOTE | ~2023-11-28 | CT_ITS ---
EXAMINATION: CT CHEST WITHOUT CONTRAST CLINICAL INFORMATION: Pulmonary nodule follow-up. COMPARISON: CTA chest 09/23/2022, 09/01/2022. TECHNIQUE: Multidetector volumetric CT imaging of the chest was done. Axial MIP volume rendering provided. Sagittal and coronal reformatted images were obtained. This CT examination was performed using dose optimization techniques as appropriate, variously including the following: *Automated exposure control *Adjustment of mA and/or kV according to patient size (this includes techniques or standardized protocols for targeted exams where dose is matched to indication/reason for exam; i.e. extremities or head) *Use of iterative reconstruction technique DLP: 123 mGy-cm FINDINGS: LUNGS: Stable 4 mm and 3 mm pulmonary nodules in the superior segment of the left lower lobe. Mild centrilobular emphysema. Diffuse airway wall thickening consistent with chronic airways disease. Cystic changes in the bilateral lower lobes are stable. Subpleural reticular changes may reflect early interstitial disease and are unchanged. No consolidation. MEDIASTINUM: No adenopathy. No aortic aneurysm. No pericardial effusion. High density material at the bifurcation of the left lower lobe pulmonary arteries consistent with an embolized vertebral augmentation cement and unchanged compared to previous imaging. CORONARY ARTERY CALCIFICATION: None visualized on this study. PLEURA: There is no pleural effusion. No pleural mass or thickening. AXILLA: No lymphadenopathy. UPPER ABDOMEN: Unremarkable. OSSEOUS STRUCTURES: Degenerative changes in the spine. Vertebral augmentation cement at L2 incompletely visualized. CT/CT chest wo IV con IMPRESSION: Stable sub-6 mm pulmonary nodules in the left lower lobe for which no imaging follow-up is recommended as per Fleischner Society guidelines. Mild emphysema. Chronic airways disease. Stable subpleural reticular changes may reflect early/mild interstitial lung disease. Fleischner guidelines were followed.
== END 2023-11-28 11:07 | disposition home or self-care (01) ==
LOC: HO.CT 11:06
PROVIDERS: PCP Internal Medicine; Visit Provider Hospitalist
DX: R91.8 Other nonspecific abnormal finding of lung field (principal)
CPT/HCPCS: 71250

== ENCOUNTER 2024-01-02 11:08 | Outpatient (REF) | payer MEDICARE, MEDICAID, SELFPAY ==
[2024-01-02 13:11] LABS: MANUAL DIFF FLAG NO
[2024-01-02 13:25] LABS: Basophils Absolute Auto 0.1 X10*3/uL (0.0-0.2); Basophils Percent Auto 1.1 % (0-2); Eosinophils Absolute Auto 0.1 X10*3/uL (0.0-0.4); Eosinophils Percent Auto 1.6 % (0-4); Hemoglobin 11.9 g/dl (12.0-16.0); Imm Gran Abs Auto 0.01 X10*3/uL (0.00-0.03); Imm Gran Pct Auto 0.2 % (0.0-0.4); Lymphocytes Absolute Auto 1.8 X10*3/uL (1.2-4.9); Lymphocytes Percent Auto 30.8 % (20-40); Mean Corpuscular HGB Conc 33.1 g/dl (31.0-35.0); Mean Corpuscular Hemoglobin 28.6 pg (27.0-33.0); Mean Corpuscular Volume 86.5 fL (80.0-98.0); Mean Platelet Volume 13.4 fL (9.4-12.3); Monocytes Absolute Auto 0.5 X10*3/uL (0.1-1.2); Monocytes Percent Auto 8.8 % (2-11); Neutrophils Absolute Auto 3.3 x10*3/uL (2.0-8.3); Neutrophils Percent Auto 57.5 % (45-73); Platelet Count 157 X10*3/uL (160-400); Red Blood Count 4.16 X10*6/uL (4.20-5.50); Red Cell Distribution Width 14.8 % (11.0-16.0); White Blood Count 5.7 X10*3/uL (4.8-10.8)
[2024-01-02 14:09] LABS: Alanine Aminotransferase 12 U/L (0-31); Alkaline Phosphatase 61 U/L (39-117); Anion Gap 9 (12-20); Aspartate Amino Transferase 18 U/L (5-31); Bilirubin Total 0.4 mg/dL (0.0-1.0); Blood Urea Nitrogen 8 mg/dL (9-16); Calcium 8.6 mg/dL (8.4-10.2); Carbon Dioxide 27 mmol/L (22-29); Chloride 108 mmol/L (96-108); Cholesterol 192 mg/dL (<200); Erythrocyte Sedimentation Rate 6 MM/HR (0-20); Estimated Glomerular Filt Rate > 60; Glucose Random 87 mg/dL (60-115); HDL Cholesterol 84 mg/dL (>40); LDL Cholesterol Calculated 95 mg/dL (<100); Potassium 3.7 mmol/L (3.3-5.1); Sodium 141 mmol/L (135-145); Total Protein 6.8 g/dL (6.5-8.0); Triglycerides 66 mg/dL (<150)
== END 2024-01-02 11:09 | disposition home or self-care (01) ==
LOC: HO.10HDL 11:08
PROVIDERS: Visit Provider Nurse Practitioner Family
DX: M05.9 Rheumatoid arthritis with rheumatoid factor, unspecified (principal); E78.5 Hyperlipidemia, unspecified; Z79.899 Other long term (current) drug therapy
CPT/HCPCS: 36415; 80053; 80061; 85025; 85652; 86140

== ENCOUNTER 2024-01-17 15:29 | Outpatient (AMB) | payer MEDICARE, MEDICAID, SELFPAY ==
[2024-01-17 15:30] VITALS: BP 158/60; PULSE 82; O2SAT 97; BMI 21.1
--- NOTE | 2024-01-17 15:30 | MHC.OFFVIS ---
Vital Signs 01/17/24 15:30 Height 5 ft 3 in Weight 119 lb 0.794 oz BMI 21.1 BP 158/60 H Blood Pressure Location Rt brachial Position Sitting Pulse 82 Pulse Source Pulse Oximeter Pulse Oximetry (%) 97 Oxygen Delivery Method Room Air Intake Visit Reasons: RA Intake Note: Pt last seen by Gabrielle on 11/06/23 presents today for follow up. States Harvey is not helping her anymore. 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 Accompanied by: Self / Same As Patient Allergies romosozumab-aqqg [From Evenity] Allergy (Severe, Verified 01/17/24 15:42) Hives Penicillins [PENICILLINS] Allergy (Intermediate, Verified 01/17/24 15:42) RASH/HIVES dexamethasone Allergy (Verified 01/17/24 15:42) Eye Swelling adalimumab [From Humira] Adverse Reaction (Intermediate, Verified 01/17/24 15:42) Chest Pain Medication List - Last Reconciled 01/17/24 by Freddy Burden MD acetaminophen ER 650 mg PO TID PRN adalimumab (Humira(CF) Pen) 40 mg (0.4 mL) subcut Q2W albuterol sulfate 90 mcg/actuation 2 inhalations inhalation QID atorvastatin 40 mg PO DAILY 90 days bisacodyl 10 mg (2 x 5 mg) PO BEDTIME buspirone 15 mg PO BID calcium citrate 500 mg (2 x 250 mg calcium) PO BID celecoxib 100 mg PO DAILY cetirizine 10 mg PO DAILY cholecalciferol (vitamin D3) 50 mcg PO DAILY diclofenac sodium 1% 1 - 2 grams topical BID dicyclomine 20 mg PO QID famotidine 40 mg PO BID fesoterodine ER 4 mg PO DAILY fluticasone propionate 50 mcg/actuation sprays intranasal hydrocortisone 2.5% 1 appl DE BID leflunomide 20 mg PO DAILY lidocaine 5% 2 patches topical DAILY linaclotide (Linzess) 290 mcg PO DAILY lorazepam 1 mg PO BID PRN metoprolol succinate ER 100 mg PO DAILY mometasone-formoterol 200-5 mcg/actuation (Dulera) 2 puffs inhalation Q12H 30 days montelukast 10 mg PO DAILY naloxone 4 mg/actuation 0 sprays intranasal nifedipine ER 120 mg (2 x 60 mg) PO DAILY 90 days oxycodone 10 mg PO Q6H PRN oxycodone ER 20 mg PO BID polyethylene glycol 3350 17 grams PO DAILY prednisolone acetate 1% drps ophthalmic (eye) prednisolone sodium phosphate 2 mg PO QID pregabalin 300 mg PO BID rabeprazole 20 mg PO BID simethicone 180 mg PO QID tizanidine 6 mg PO BEDTIME PRN triamcinolone acetonide (Nasacort) 1 spray intranasal DAILY valacyclovir 1,000 mg PO DAILY valsartan-hydrochlorothiazide 320-25 mg 1 tab PO DAILY zolpidem 10 mg PO BEDTIME HPI Comments Details: This is a 58-year-old female with seropositive RA who presents for follow-up. She was last seen by Gabrielle Roman 2 months ago. She states that once the prednisone was discontinued she was starting to have more joint pain or swelling. She was started on prednisone taper by her PCP. She is having more pain hands, wrists, fingers. She is having some blurry vision that she attributes to Humira. Patient stated that she is doing reasonably well while she is on methotrexate, then when she went to [facility] her methotrexate was discontinued, when she returned back to [facility] Rheumatology she was started on leflunomide, Humira was added afterwards. She states that she has had episodes suggestive of Raynaud's almost all her life. [facility] Medical History (Updated 01/17/24 @ 16:29 by Freddy Burden MD) Hx of nephrolithotomy with removal of calculi Swelling of finger joint of right hand Swelling of finger joint of left hand Hypocalcemia Coronary artery calcification seen on CAT scan Dyspnea Pulmonary nodules COPD (chronic obstructive pulmonary disease) Chest pain Pulmonary emboli Urinary urgency Hx of hemorrhoids Seropositive rheumatoid arthritis Surgical History Hx of tubal ligation Hx of hand surgery Hx of parathyroidectomy Hx of kyphoplasty History of back surgery History of esophagogastroduodenoscopy (EGD) Hx of colonoscopy Family History Father Cancer Mother Colon cancer HTN (hypertension) Diabetes Breast cancer Brother Lupus HTN (hypertension) Kidney transplanted Sister HTN (hypertension) Cancer Liver transplanted Other FH: cancer FH: mental illness Social History Household Members: None Housing: House Alcohol intake: former Patient Tobacco Use Status: Current everyday Tobacco user Tobacco use type: Cigarette Cigarettes Per Day: 5 Years Smoked: 43 Review of Systems [facility] [place] arthralgias, Reports joint swelling and Reports stiffness Physical Exam Vital Signs: Last Vital Signs Pulse 82 01/17/24 15:30 BP 158/60 H 01/17/24 15:30 Pulse Ox 97 01/17/24 15:30 Oxygen Delivery Method Room Air 01/17/24 15:30 BMI result Body Mass Index 21.1 Const General: cooperative, healthy appearing and comfortable Nutritional Appearance: average body habitus Orientation/consciousness: patient oriented x3 Limitations: ambulation with cane HEENT Head: Yes normocephalic and Yes atraumatic Mouth: moist mucous membranes Resp Effort & Inspection: normal respiratory effort and able to speak in complete sentences Auscultation: clear to auscultation bilaterally Cardio Rate: regular rate Rhythm: regular rhythm Skin General skin exam: no rashes or lesions noted Neuro General: patient oriented x3 Extrem Other: Left 3rd MCP swelling and tenderness Left 2nd and 3rd PIP swelling and tenderness Right 3rd PIP swelling and tenderness Finger and toe Nailfold capillaroscopy shows multiple dilated loops, few parallel hemorrhages Assessment & Plan Assessment & Plan (1) Seropositive rheumatoid arthritis: Comment: +RF+CCP dx 2018 Methotrexate: prior to 2018- October 2021 effective per patient Leflunomide: October 2022 to present not effective Humira 2023 Code(s): M05.9 - Rheumatoid arthritis with rheumatoid factor, unspecified Category: Medical Plan: This is a 58-year-old female with seropositive RA who presents for follow-up. This is her 1st visit with me. She used to follow-up with Gabrielle Roman. She is on leflunomide 20 mg daily and Humira 40 mg every other week she is also on prednisone prescribed by her PCP. On exam she has multiple swollen and tender joints. Patient stated that she had done much better when she was taking methotrexate. DC leflunomide and Humira. 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 Brother with lupus. Few dilated loops on nailfold capillaroscopy. History suggestive of Raynaud's. Mild interstitial changes on CT chest. Mild esophageal dysmotility on barium swallow. Will order comprehensive serology to rule out any overlap with other autoimmune rheumatic diseases Plan I spent 47 minutes reviewing patient's chart, looking at old EMR chart, evaluating patient, ordering diagnostic workup, counseling patient and documenting in the chart Orders: Orders Complete Blood Count Auto Diff 2 Months Z79.899 - Other ocean transportation intermediary (current) drug therapy Comprehensive Met. Panel 2 Months Z79.899 - Other senior living (current) drug therapy Erythrocyte Sedimentation Rate 2 Months Z79.899 - Other ocean transportation intermediary (current) drug therapy Beta-2 Glycoprotein Antibody 2 Months D68.61 - Antiphospholipid syndrome Cardiolipin Antibodies 2 Months D68.61 - Antiphospholipid syndrome Anti Extractable Nuclear Ag 2 Months M32.9 - Systemic lupus erythematosus, unspecified Anti DNA DS Antibody 2 Months M32.9 - Systemic lupus erythematosus, unspecified MSA Panel Extended 2 Months G72.9 - Myopathy, unspecified Scleroderma 12 Panel 2 Months M34.9 - Systemic sclerosis, unspecified Creatine Kinase Total 2 Months G72.9 - Myopathy, unspecified C Reactive Protein 2 Months Z79.899 - Other senior living (current) drug therapy Lupus Anticoagulant Panel 2 Months D68.61 - Antiphospholipid syndrome Complement C3 2 Months M32.9 - Systemic lupus erythematosus, unspecified Complement C4 2 Months M32.9 - Systemic lupus erythematosus, unspecified DNA Double Stranded-Crithidia 2 Months M32.9 - Systemic lupus erythematosus, unspecified Protein Creatinine Ratio, Ur 2 Months M32.9 - Systemic lupus erythematosus, unspecified Sjogren's Antibodies 2 Months M32.9 - Systemic lupus erythematosus, unspecified UA w Microscopic 2 Months M32.9 - Systemic lupus erythematosus, unspecified Medications: New methotrexate sodium 20 mg (8 x 2.5 mg) PO QWEEK 64 tabs 0RF folic acid 1 mg PO DAILY 90 tabs 1RF Discontinued adalimumab (Humira(CF) Pen) Discontinued Reason: Doctor's Order 40 mg (0.4 mL) subcut Q2W 2 ea 2RF leflunomide Discontinued Reason: Doctor's Order 20 mg PO DAILY 90 tabs 0RF M05.9 - Rheumatoid arthritis with rheumatoid factor, unspecified Coding Level of Care Code Est Pt Level 5 (49237) Complex EM visit Add On G2211 Diagnoses Seropositive rheumatoid arthritis M05.9 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
== END 2024-01-17 16:15 | disposition home or self-care (01) ==
PROVIDERS: PCP Internal Medicine; Visit Provider Student in an Organized Health Care Education/Training Program
DX: M05.79 Rheumatoid arthritis with rheumatoid factor of multiple sites without organ or systems involvement (principal); Z79.899 Other long term (current) drug therapy; R76.8 Other specified abnormal immunological findings in serum
CPT/HCPCS: 99215; G2211

== ENCOUNTER → 2024-01-17 15:29 | Outpatient (BNVA) | payer MEDICARE, MEDICAID, SELFPAY | PROVIDERS: PCP Internal Medicine; Visit Provider Student in an Organized Health Care Education/Training Program | DX: M05.9 Rheumatoid arthritis with rheumatoid factor, unspecified (principal); R76.8 Other specified abnormal immunological findings in serum; Z79.899 Other long term (current) drug therapy | CPT/HCPCS: 99212 ==

== ENCOUNTER 2024-01-21 10:55 | Outpatient (AMB) | payer MEDICARE, MEDICAID, SELFPAY ==
[2024-01-21 11:05] VITALS: BP 136/70; PULSE 73; O2SAT 97; BMI 21.1
--- NOTE | 2024-01-21 11:05 | A.OFFVIS_ITS ---
Vital Signs 01/21/24 11:05 Height 5 ft 3 in Weight 119 lb 0.794 oz BMI 21.1 BP 136/70 Blood Pressure Location Lt brachial Position Sitting Pulse 73 Pulse Source Pulse Oximeter Pulse Oximetry (%) 97 Oxygen Delivery Method Room Air Intake Visit Reasons: copd Physical Damage Appraiser Required: No Allergies [id number] [From Evenity] Allergy (Severe, Verified 01/21/24 11:08) Hives Penicillins [PENICILLINS] Allergy (Intermediate, Verified 01/21/24 11:08) RASH/HIVES dexamethasone Allergy (Verified 01/21/24 11:08) Eye Swelling adalimumab [From Humira] Adverse Reaction (Intermediate, Verified 01/21/24 11:08) Chest Pain HPI Comments Details: The patient is a 58 year woman with known history of tobacco dependency who apparently underwent a kyphoplasty for compression fractures back in September 2022. After the procedure the patient developed significant shortness of breath and chest discomfort. She did undergo a CTA at [facility] which I personally reviewed demonstrating a left pulmonary cement emboli. The patient was treated initially was her outcome for about a month. Then she was taking off. She has noticed increasing shortness of breath with minimal activity moderate severity. Also developing chest discomfort. She continues to smoke cigarettes. We did talk about the importance of her quitting. We did talk about the findings on the CT scan also demonstrating pulmonary nodules that need close follow-up. And a brief walking oximetry the patient maintain a pulse ox of 98% which is reas suring and the heart rate was stable. Will plan to get blood works including a D-dimer at this time. If the D-dimer is elevated will go ahead and request a CTA to rule out thromboembolic disease. We know that that cement can be thrombogenic and can increase the risk of clotting. 01/24/2023 the patient is here for pulmonary follow-up visit. Overall the patient has been doing well. She is working on quitting smoking altogether. She is using the patch. The patient still having some dyspnea on exertion mild in severity. Overall doing better. She did have blood work during the last visit and she did have an elevated D-dimer therefore she underwent a CTA. She still had the area of residual cement within the pulmonary vasculature on the left hemithorax but otherwise no evidence of any thromboembolic disease. The patient's ground-glass opacities have subsided the patient also has pulmonary nodules some of them have improved as well. She will need some degree follow-up for the pulmonary nodule specially with high risk with her smoking history. She also has significant coronary artery disease that is described as moderately severe calcifications of the coronary arteries. Patient does have dyspnea on exertion and has complained of some chest pressure at times. Therefore I will have her undergo an EKG and also a stress test. Patient may benefit from Cardiology consultation if any abnormalities noted. 07/18/2023 the patient is here for a pulmonary follow-up visit. Overall the patient has been doing fairly well from a respiratory status. She does complaint of back pain. Been bothering her significant amount. She is going to be evaluated for sciatica soon. In the meantime we did review her CT scan of the chest that she had back in November 2022 demonstrating the persistence amount of her vessels secondary to her kyphoplasty. In addition to that underlying pulmonary nodules. She is a high-risk patient because of her smoking history. The patient will need to have a repeat CT scan in a year from her last 1 was be November 2023. she will continue with current respiratory therapy. Will follow-up in December after her CT scan. 01/21/2024 the patient is here for a pulmonary follow-up visit. Overall the patient has been doing okay. She has been developing worsening chest congestion. Also some chest tightness. In addition to that her arthritis has been more active. She had been on biologic therapy for her rheumatoid arthritis and then switched over to methotrexate. She has been on methotrexate now just for several weeks. Still not controlling her arthritis. We did talk about methotrexate be in an excellent medication for rheumatoid arthritis. Although the patient is aware that in some cases it can result in worsening adverse pulmonary symptoms. She did have a CT scan in November which is personally reviewed. I do not believe she was on the methotrexate done. She had a slight area of ground-glass opacity. She also has evidence of chronic bronchitis. We are going to go ahead and treat her for bronchitis with doxycycline. She is going to try to provide us with a sputum culture. In the meantime the patient also has some wheezing and will place her on low dose prednisone taper to see if we can provide some relief. Will monitor closely her symptoms. If the patient continues to have worsening cough, will consider additional imaging at that po int. To make sure that she has not developing any adverse effects from the medication. She continues with respiratory therapy. Will follow-up until 3 months. If she does not worsening symptoms prior to this she will call for an earlier assessment. [facility] Medical History (Updated 01/21/24 @ 22:29 by John Meraz MD) Bronchitis Hx of nephrolithotomy with removal of calculi Swelling of finger joint of right hand Swelling of finger joint of left hand Hypocalcemia Coronary artery calcification seen on CAT scan Dyspnea Pulmonary nodules COPD (chronic obstructive pulmonary disease) Chest pain Pulmonary emboli Urinary urgency Hx of hemorrhoids Seropositive rheumatoid arthritis Surgical History Hx of tubal ligation Hx of hand surgery Hx of parathyroidectomy Hx of kyphoplasty History of back surgery History of esophagogastroduodenoscopy (EGD) Hx of colonoscopy Family History Father Cancer Mother Colon cancer HTN (hypertension) Diabetes Breast cancer Brother Lupus HTN (hypertension) Kidney transplanted Sister HTN (hypertension) Cancer Liver transplanted Other FH: cancer FH: mental illness Social History Household Members: None Housing: House Alcohol intake: former Patient Tobacco Use Status: Current everyday Tobacco user Tobacco use type: Cigarette Cigarettes Per Day: 5 Years Smoked: 43 Review of Systems Const Denies fatigue, Denies fever(s), Denies night sweats, Denies poor appetite and Denies weight loss Eyes Details: glasses Reports requires corrective lenses ENT Denies dysphagia Card Denies chest pain and Reports dyspnea on exertion Resp Reports chest congestion, Reports cough, Reports dyspnea on exertion and Reports wheezing GI Denies dysphagia Musc Reports abnormal gait, Reports back pain, Reports myalgias, Reports arthralgias, Reports joint swelling and Reports limited range of motion Skin/Breast Denies pruritus, Denies lesions, Denies rash and Denies jaundice Neuro Denies Abnormal speech present and Reports abnormal gait Psych Reports mood swings Endo Denies fatigue Mason/Lymph Denies as per HPI, Denies easy bleeding and Denies easy bruising Aller/Immun Reports wheezing Physical Exam Vital Signs: Last Vital Signs Pulse 73 01/21/24 11:05 BP 136/70 01/21/24 11:05 Pulse Ox 97 01/21/24 11:05 Oxygen Delivery Method Room Air 01/21/24 11:05 BMI result Body Mass Index 21.1 Const General: cooperative, no acute distress, alert and awake Nutritional Appearance: well nourished Orientation/consciousness: patient oriented x3 Limitations: no limitations HEENT Head: Yes normal to inspection and Yes atraumatic Neck Neck: Yes normal visual inspection, Yes full ROM and Yes no lymphadenopathy Chest Chest palpation & inspection: normal inspection of the chest Resp Effort & Inspection: normal respiratory effort Auscultation: no rhonchi, wheezes and diminished lung sounds Cardio Rate: regular rate Rhythm: regular rhythm GI Palpation (GI): Soft to palpation General: Yes no CVA tenderness Back/Spine/Pelvis Back: no CVA tenderness Neuro General: patient oriented x3 and moves all extremities Speech: No Abnormal speech present Extrem General: Yes normal to inspection Assessment & Plan Assessment & Plan (1) Pulmonary emboli: Code(s): I26.99 - Other pulmonary embolism without acute cor pulmonale Category: Medical Qualifiers: Acute cor pulmonale presence: unspecified Chronicity: chronic Pulmonary embolism type: unspecified Qualified Code(s): I27.82 - Chronic pulmonary embolism (2) Chest pain: Code(s): R07.9 - Chest pain, unspecified Category: Medical Qualifiers: Chest pain type: unspecified Qualified Code(s): R07.9 - Chest pain, unspecified (3) COPD (chronic obstructive pulmonary disease): Code(s): J44.9 - Chronic obstructive pulmonary disease, unspecified Category: Medical Qualifiers: COPD type: COPD with acute lower respiratory infection Qualified Code(s): J44.0 - Chronic obstructive pulmonary disease with (acute) lower respiratory infection (4) Pulmonary nodules: Code(s): R91.8 - Other nonspecific abnormal finding of lung field Category: Medical (5) Coronary artery calcification seen on CAT scan: Code(s): I25.10 - Atherosclerotic heart disease of [place] coronary artery without angina pectoris Category: Medical (6) Bronchitis: Code(s): J40 - Bronchitis, not specified as acute or chronic Category: Medical Plan stop Dulera start Breo 200 start Doxycycline start prednisone taper sputum cx BISI as needed Smoking cessation F/U 3-4 months Orders: Orders Sputum Cult + Gram stain Today J40 - Bronchitis, not specified as acute or chronic Medications: New prednisone PO daily; Take tabs daily x 10 days, then 1 tab daily x 10 days 30 tabs 0RF 20 days fluticasone furoate-vilanterol 200-25 mcg/dose (Breo Ellipta) 1 inh inhalation DAILY 60 ea 11RF 30 days Coding Level of Care Code Est Pt Level 4 (56460) Diagnoses Chronic pulmonary embolism, unspecified pulmonary embolism type, unspecified whether acute cor pulmonale present I27.82 Acute cor pulmonale presence: unspecified Chronicity: chronic Pulmonary embolism type: unspecified Chest pain, unspecified type R07.9 Chest pain type: unspecified Chronic obstructive pulmonary disease with acute lower respiratory infection J44.0 COPD type: COPD with acute lower respiratory infection Pulmonary nodules R91.8 Coronary artery calcification seen on CAT scan I25.10 Bronchitis J40 Time Spent (min) 17
== END 2024-01-21 11:34 | disposition home or self-care (01) ==
PROVIDERS: PCP Internal Medicine; Visit Provider Hospitalist
DX: I27.82 Chronic pulmonary embolism (principal); R07.9 Chest pain, unspecified; J44.0 Chronic obstructive pulmonary disease with (acute) lower respiratory infection; R91.8 Other nonspecific abnormal finding of lung field; I25.10 Atherosclerotic heart disease of native coronary artery without angina pectoris; J40 Bronchitis, not specified as acute or chronic
CPT/HCPCS: 99214

== ENCOUNTER → 2024-01-21 10:55 | Outpatient (BNVA) | payer MEDICARE, MEDICAID, SELFPAY | PROVIDERS: PCP Internal Medicine; Visit Provider Hospitalist | DX: I27.82 Chronic pulmonary embolism (principal); R07.9 Chest pain, unspecified; J44.0 Chronic obstructive pulmonary disease with (acute) lower respiratory infection; R91.8 Other nonspecific abnormal finding of lung field; I25.10 Atherosclerotic heart disease of native coronary artery without angina pectoris; J40 Bronchitis, not specified as acute or chronic | CPT/HCPCS: 99212 ==

== ENCOUNTER 2024-01-28 12:37 | Outpatient (REF) | payer MEDICARE, MEDICAID, SELFPAY | END 2024-01-28 12:38 | disposition home or self-care (01) | LOC: HO.LNP 12:37 | PROVIDERS: Visit Provider Hospitalist | DX: J40 Bronchitis, not specified as acute or chronic (principal) | CPT/HCPCS: 87070; 87205 ==

== ENCOUNTER 2024-02-26 16:31 | Outpatient (REF) | payer MEDICARE, MEDICAID, SELFPAY ==
[2024-02-26 16:48] LABS: MANUAL DIFF FLAG NO
[2024-02-26 17:36] LABS: Basophils Absolute Auto 0.1 X10*3/uL (0.0-0.2); Basophils Percent Auto 0.9 % (0-2); Eosinophils Absolute Auto 0.1 X10*3/uL (0.0-0.4); Eosinophils Percent Auto 2.1 % (0-4); Hematocrit 35.5 % (37.0-47.0); Hemoglobin 11.8 g/dl (12.0-16.0); Imm Gran Abs Auto 0.03 X10*3/uL (0.00-0.03); Imm Gran Pct Auto 0.4 % (0.0-0.4); Lymphocytes Absolute Auto 1.7 X10*3/uL (1.2-4.9); Lymphocytes Percent Auto 24.9 % (20-40); Mean Corpuscular HGB Conc 33.2 g/dl (31.0-35.0); Mean Corpuscular Hemoglobin 29.5 pg (27.0-33.0); Mean Corpuscular Volume 88.8 fL (80.0-98.0); Mean Platelet Volume 12.5 fL (9.4-12.3); Monocytes Absolute Auto 0.5 X10*3/uL (0.1-1.2); Neutrophils Absolute Auto 4.3 x10*3/uL (2.0-8.3); Neutrophils Percent Auto 64.7 % (45-73); Platelet Count 191 X10*3/uL (160-400); Red Cell Distribution Width 16.7 % (11.0-16.0); White Blood Count 6.7 X10*3/uL (4.8-10.8)
[2024-02-26 17:41] LABS: Alanine Aminotransferase 20 U/L (0-31); Albumin Level 4.4 g/dL (3.5-5.0); Alkaline Phosphatase 87 U/L (39-117); Anion Gap 13 (12-20); Aspartate Amino Transferase 24 U/L (5-31); Bilirubin Total 0.3 mg/dL (0.0-1.0); Blood Urea Nitrogen 10 mg/dL (9-16); C Reactive Protein 0.18 mg/dL (< or = 0.50); Calcium 9.7 mg/dL (8.4-10.2); Carbon Dioxide 29 mmol/L (22-29); Chloride 103 mmol/L (96-108); Estimated Glomerular Filt Rate > 60; Glucose Random 81 mg/dL (60-115); Potassium 3.6 mmol/L (3.3-5.1); Sodium 141 mmol/L (135-145); Total Protein 7.4 g/dL (6.5-8.0)
[2024-02-26 17:44] LABS: Appearance Urine Clear; Color Urine Yellow; Glucose Urine UA Negative (Negative); Leukocyte Esterase Urine Trace (Negative); Nitrite Urine Negative (Negative); PH 7.5 (5.0-9.0); Specific Gravity - Urine <= 1.005 (1.005-1.025); UMIC TRIGGER UA YES; Urine Blood Negative (Negative); Urine Ketones Negative (Negative); Urine Protein Negative (Neg-Trace)
[2024-02-26 17:48] LABS: Bacteria Urine None Seen (None Seen); Hyaline Casts Urine 0-2 /LPF (0-2); RBC Urine 0-2 /HPF (0-2); Squamous Epithelial Cell Urine 0-2 /HPF (0-2); WBC Urine 0-5 /HPF (0-5)
[2024-02-26 18:00] LABS: Erythrocyte Sedimentation Rate 11 MM/HR (0-20)
[2024-02-26 18:23] LABS: Total Protein Urine Random < 7 mg/dL (<12)
[2024-02-27 14:08] LABS: Anti DNA DS Antibody 1 IU/mL; Antibody to SS-A Antigen <1.0 NEG AI (<1.0 NEG); Antibody to SS-B Antigen <1.0 NEG AI (<1.0 NEG); SM/Ribonucleoprotein Ab <1.0 NEG AI (<1.0 NEG); Smith Protein <1.0 NEG AI (<1.0 NEG)
[2024-02-27 17:13] LABS: Complement C3 57 mg/dL (83-193)
[2024-02-27 19:38] LABS: Cardiolipin IgG Ab <2.0 GPL-U/mL; Cardiolipin IgM Ab <2.0 MPL-U/mL
[2024-03-05 08:23] LABS: PTT (LAC) Screen 36 sec (<=40)
[2024-03-05 21:33] LABS: Centromere Protein A Ab <11 SI (<11); Centromere Protein B Ab <11 SI (<11); Fibrillarin Ab <11 SI (<11); PM SCL 100 Ab <11 SI (<11); PM SCL 75 Ab <11 SI (<11); RNA Polymerase III RP11 Ab <11 SI (<11); RNA Polymerase III RP155 Ab <11 SI (<11); SCL-70 Extractable Nuclear Ab 21 SI (<11); Th-To Ab <11 SI (<11); U1 SNRNP RNP 70KD <11 SI (<11); U1 SNRNP RNP A <11 SI (<11); U1 SNRNP RNP C <11 SI (<11)
[2024-03-06 01:24] LABS: Cytosolic 5'nuc 1A Ab IgG <5 Units; Ej Ab <11 SI (<11); HMGCR Ab IgG <2 CU (<20); Jo-1 Ab <11 SI (<11); MDA5 Ab <11 SI (<11); Mi-2 alpha Ab <11 SI (<11); Mi-2 beta Ab 14 SI (<11); NXP-2 (MJ) Ab <11 SI (<11); Oj Ab <11 SI (<11); Pl-12 Ab <11 SI (<11); Pl-7 Ab 41 SI (<11); SRP Ab <11 SI (<11); TIF1 gamma Ab <11 SI (<11)
[2024-03-08 16:09] LABS: DNAds, Crithidia Antibody Negative (Negative)
[2024-03-08 23:09] LABS: Beta-2 Glycoprotein IgA <2.0 U/mL (<20.0); Beta-2 Glycoprotein IgG <2.0 U/mL (<20.0); Beta-2 Glycoprotein IgM <2.0 U/mL (<20.0)
== END 2024-02-26 16:32 | disposition home or self-care (01) ==
LOC: HO.LAB 16:31
PROVIDERS: PCP Internal Medicine; Visit Provider Student in an Organized Health Care Education/Training Program
DX: M34.9 Systemic sclerosis, unspecified (principal); M32.9 Systemic lupus erythematosus, unspecified; D68.61 Antiphospholipid syndrome; G72.9 Myopathy, unspecified; Z79.899 Other long term (current) drug therapy
CPT/HCPCS: 36415; 80053; 81001; 82550; 82570; 83516; 83520; 84156; 84182; 85025; 85597; 85598; 85613; 85652; 85730; 86140; 86146; 86147; 86160; 86225; 86235; 86255

== ENCOUNTER 2024-03-04 15:49 | Outpatient (AMB) | payer MEDICARE, MEDICAID, SELFPAY ==
[2024-03-04 15:55] VITALS: BP 148/84; PULSE 85; O2SAT 98; BMI 21.2
--- NOTE | 2024-03-04 15:55 | MHC.OFFVIS ---
Vital Signs 03/04/24 15:55 Height 5 ft 3 in Weight 119 lb 14.903 oz BMI 21.2 BP 148/84 H Blood Pressure Location Lt brachial Position Sitting Pulse 85 Pulse Source Pulse Oximeter Pulse Oximetry (%) 98 Oxygen Delivery Method Room Air Intake Visit Reasons: RA/cm Intake Note: Patient is here for follow up on RA today. Accompanied by: Significant Other Allergies romosozumab-aqqg [From Evenity] Allergy (Severe, Verified 01/21/24 11:08) Hives Penicillins [PENICILLINS] Allergy (Intermediate, Verified 01/21/24 11:08) RASH/HIVES dexamethasone Allergy (Verified 01/21/24 11:08) Eye Swelling adalimumab [From Humira] Adverse Reaction (Intermediate, Verified 01/21/24 11:08) Chest Pain Medication List - Last Reconciled 03/04/24 by Freddy Burden MD acetaminophen ER 650 mg PO TID PRN albuterol sulfate 90 mcg/actuation 2 inhalations inhalation QID atorvastatin 40 mg PO DAILY 90 days bisacodyl 10 mg (2 x 5 mg) PO BEDTIME Breo Ellipta 200-25 mcg/dose (fluticasone furoate-vilanterol) 1 inh inhalation DAILY 30 days NS buspirone 15 mg PO BID calcium citrate 500 mg (2 x 250 mg calcium) PO BID celecoxib 100 mg PO DAILY cetirizine 10 mg PO DAILY cholecalciferol (vitamin D3) 50 mcg PO DAILY diclofenac sodium 1% 1 - 2 grams topical BID dicyclomine 20 mg PO QID doxycycline monohydrate 100 mg PO BID 14 days famotidine 40 mg PO BID fesoterodine ER 4 mg PO DAILY fluticasone propionate 50 mcg/actuation sprays intranasal folic acid 1 mg PO DAILY hydrocortisone 2.5% (Procto-Med HC) 1 appl NC BID PRN lidocaine 5% 2 patches topical DAILY linaclotide (Linzess) 290 mcg PO DAILY lorazepam 1 mg PO BID PRN methotrexate sodium 20 mg (8 x 2.5 mg) PO QWEEK metoprolol succinate ER 100 mg PO DAILY mometasone-formoterol 200-5 mcg/actuation (Dulera) 2 puffs inhalation Q12H 30 days montelukast 10 mg PO DAILY naloxone 4 mg/actuation 0 sprays intranasal nifedipine ER 120 mg (2 x 60 mg) PO DAILY 90 days oxycodone 10 mg PO Q6H PRN oxycodone ER 20 mg PO BID polyethylene glycol 3350 17 grams PO DAILY prednisolone acetate 1% drps ophthalmic (eye) prednisolone sodium phosphate 2 mg PO QID prednisone PO daily; Take tabs daily x 10 days, then 1 tab daily x 10 days 20 days pregabalin 300 mg PO BID rabeprazole 20 mg PO BID simethicone 180 mg PO QID tizanidine 6 mg PO BEDTIME PRN triamcinolone acetonide (Nasacort) 1 spray intranasal DAILY valacyclovir 1,000 mg PO DAILY valsartan-hydrochlorothiazide 320-25 mg 1 tab PO DAILY zolpidem 10 mg PO BEDTIME HPI Comments Details: This is a 58-year-old female with seropositive RA who presents for follow-up. She states that she has not been doing well recently. She continues to have pain and swelling of her fingers. Symptoms are more severe in the morning. Particularly of her right 3rd PIP, right 3rd DIP and right 2nd DIP. She also Has pain and swelling of her toes. [facility] Medical History Bronchitis Hx of nephrolithotomy with removal of calculi Swelling of finger joint of right hand Swelling of finger joint of left hand Hypocalcemia Coronary artery calcification seen on CAT scan Dyspnea Pulmonary nodules COPD (chronic obstructive pulmonary disease) Chest pain Pulmonary emboli Urinary urgency Hx of hemorrhoids Seropositive rheumatoid arthritis Surgical History Hx of tubal ligation Hx of hand surgery Hx of parathyroidectomy Hx of kyphoplasty History of back surgery History of esophagogastroduodenoscopy (EGD) Hx of colonoscopy Family History Father Cancer Mother Colon cancer HTN (hypertension) Diabetes Breast cancer Brother Lupus HTN (hypertension) Kidney transplanted Sister HTN (hypertension) Cancer Liver transplanted Other FH: cancer FH: mental illness Social History Household Members: None Housing: House Alcohol intake: former Patient Tobacco Use Status: Current everyday Tobacco user Tobacco use type: Cigarette Cigarettes Per Day: 5 Years Smoked: 43 Female Reproductive History Menstrual Total pregnancies: 3 Number of Living Children: 3 Review of Systems [facility] Reports arthralgias, Reports joint swelling and Reports stiffness Physical Exam Vital Signs: Last Vital Signs Pulse 85 03/04/24 15:55 BP 148/84 H 03/04/24 15:55 Pulse Ox 98 03/04/24 15:55 Oxygen Delivery Method Room Air 03/04/24 15:55 BMI result Body Mass Index 21.2 Const General: cooperative, healthy appearing and comfortable Nutritional Appearance: average body habitus Orientation/consciousness: patient oriented x3 Limitations: ambulation with cane HEENT Head: Yes normocephalic and Yes atraumatic Mouth: moist mucous membranes Resp Effort & Inspection: normal respiratory effort and able to speak in complete sentences Auscultation: clear to auscultation bilaterally Cardio Rate: regular rate Rhythm: regular rhythm Skin General skin exam: no rashes or lesions noted Neuro General: patient oriented x3 Extrem Other: Prominent Heberden's and Antione's nodes bilaterally Right 3rd PIP swelling and tenderness Right 2nd DIP swelling and tenderness Finger and toe Nailfold capillaroscopy shows multiple dilated loops, few parallel hemorrhages Assessment & Plan Assessment & Plan (1) Seropositive rheumatoid arthritis: Comment: +RF+CCP dx 2018 Methotrexate: prior to 2018- October 2021 effective per patient Leflunomide: October 2022 DC 12/2023 not effective Humira 2023 DC 12/2023 ineffective MTX restarted 12/2023 Code(s): M05.9 - Rheumatoid arthritis with rheumatoid factor, unspecified Category: Medical Plan: This is a 58-year-old female with seropositive RA who presents for follow-up. She remains on methotrexate 20 mg weekly plus folic acid 1 mg daily. Upon evaluation today she has pain and swelling of her right 3rd PIP as well as multiple tender Heberden's nodes. Her symptoms today are likely due to osteoarthritis. Advised patient to follow-up with hand surgeon. She has done multiple surgical procedures with Dr. Henson in the past. Advised patient to follow-up with Dr. Henson, consider injection of right 3rd PIP I think her arthritic pains are due to degenerative arthritis today. 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 Brother with lupus. Few dilated loops on nailfold capillaroscopy. History suggestive of Raynaud's. Mild interstitial changes on CT chest. Mild esophageal dysmotility on barium swallow. Comprehensive serology to rule out any overlap with other autoimmune rheumatic diseases was ordered last visit, results pending (4) Osteoarthritis of hands, bilateral: Code(s): M19.041 - Primary osteoarthritis, right hand; M19.042 - Primary osteoarthritis, left hand Category: Medical Qualifiers: Osteoarthritis type: primary Qualified Code(s): M19.041 - Primary osteoarthritis, right hand; M19.042 - Primary osteoarthritis, left hand Plan: As mentioned above, follow-up with Dr. Henson. Other options include taking prednisone 2.5 mg daily chronically, patient does have known history of osteoporosis and steroids might further we can her bones however this would be a small dose. Advised patient to restart her osteoporosis treatment. (5) Osteoporosis: Comment: History of hyper parathyroidism and fragility fractures Code(s): M81.0 - Age-related osteoporosis without current pathological fracture Category: Medical Qualifiers: Osteoporosis type: age-related Presence of current pathological fracture: with current pathological fracture Encounter type: subsequent encounter Fracture healing: with routine healing Qualified Code(s): M80.00XD - Age-related osteoporosis with current pathological fracture, unspecified site, subsequent encounter for fracture with routine healing Plan: Return to Dr. Queen. Consider restarting therapy for osteoporosis Plan I spent 47 minutes reviewing patient's chart, looking at old EMR chart, evaluating patient, ordering diagnostic workup, counseling patient and documenting in the chart Orders: Orders Complete Blood Count Auto Diff 3 Months M05.9 - Rheumatoid arthritis with rheumatoid factor, unspecified C Reactive Protein 3 Months M05.9 - Rheumatoid arthritis with rheumatoid factor, unspecified Erythrocyte Sedimentation Rate 3 Months M05.9 - Rheumatoid arthritis with rheumatoid factor, unspecified Comprehensive Met. 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
== END 2024-03-04 16:24 | disposition home or self-care (01) ==
PROVIDERS: PCP Internal Medicine; Visit Provider Student in an Organized Health Care Education/Training Program
DX: M05.79 Rheumatoid arthritis with rheumatoid factor of multiple sites without organ or systems involvement (principal); Z79.899 Other long term (current) drug therapy; R76.8 Other specified abnormal immunological findings in serum; M19.041 Primary osteoarthritis, right hand; M19.042 Primary osteoarthritis, left hand; M80.00XD Age-related osteoporosis with current pathological fracture, unspecified site, subsequent encounter for fracture with routine healing
CPT/HCPCS: 99215; G2211

== ENCOUNTER → 2024-03-04 15:49 | Outpatient (BNVA) | payer MEDICARE, MEDICAID, SELFPAY | PROVIDERS: PCP Internal Medicine; Visit Provider Student in an Organized Health Care Education/Training Program | DX: M19.041 Primary osteoarthritis, right hand (principal); M19.042 Primary osteoarthritis, left hand; M05.9 Rheumatoid arthritis with rheumatoid factor, unspecified; R76.8 Other specified abnormal immunological findings in serum; M80.00XD Age-related osteoporosis with current pathological fracture, unspecified site, subsequent encounter for fracture with routine healing; X58.XXXD Exposure to other specified factors, subsequent encounter; Z79.899 Other long term (current) drug therapy | CPT/HCPCS: 99212 ==

== ENCOUNTER 2024-03-06 16:13 | Outpatient (AMB) | payer MEDICARE, MEDICAID, SELFPAY ==
--- NOTE | 2024-03-06 16:37 | HO.NEPHOV ---
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 She has rheumatoid arthritis and is followed by her machine helper. She has history of parathyroidectomy with normalization of serum calcium. She also has had pulmonary embolism and had been on anticoagulation. She had a brother who developed ESRD due to lupus nephritis. She had denies chest pain, nausea, vomiting, diarrhea, proximal nocturnal dyspnea or orthopnea. She claims to be compliant with her diet and medications. Her renal functions had been stable. She is on RA & is methotrexate. [facility] Medical History Bronchitis Hx of nephrolithotomy with removal of calculi Swelling of finger joint of right hand Swelling of finger joint of left hand Hypocalcemia Coronary artery calcification seen on CAT scan Dyspnea Pulmonary nodules COPD (chronic obstructive pulmonary disease) Chest pain Pulmonary emboli Urinary urgency Hx of hemorrhoids Seropositive rheumatoid arthritis Surgical History Hx of tubal ligation Hx of hand surgery Hx of parathyroidectomy Hx of kyphoplasty History of back surgery History of esophagogastroduodenoscopy (EGD) Hx of colonoscopy Family History Father Cancer Mother Colon cancer HTN (hypertension) Diabetes Breast cancer Brother Lupus HTN (hypertension) Kidney transplanted Sister HTN (hypertension) Cancer Liver transplanted Other FH: cancer FH: mental illness Social History Household Members: None Housing: House Alcohol intake: former Patient Tobacco Use Status: Current everyday Tobacco user Tobacco use type: Cigarette Cigarettes Per Day: 5 Years Smoked: 43 Review of Systems Const All systems reviewed & are unremarkable except as noted in HPI and below Physical Exam Vital Signs: Last Vital Signs Pulse 81 03/06/24 16:40 BP 122/80 03/06/24 16:40 Pulse Ox 97 03/06/24 16:40 Oxygen Delivery Method Room Air 03/06/24 16:40 BMI result Body Mass Index 21.1 Const General: comfortable and no acute distress Orientation/consciousness: patient oriented x3 HEENT Head: Yes normocephalic Mouth: Normal oral and palatal mucosa present Eyes EOM: EOMs intact bilaterally Neck Neck: Yes supple Resp Auscultation: clear to auscultation bilaterally Cardio Jugular venous distension: no JVD Rate: regular rate Heart sounds: Murmur heart sound present GI Palpation (GI): Soft to palpation Auscultation: normal bowel sounds Skin General skin exam: no rashes or lesions noted Neuro General: patient oriented x3 and moves all extremities Results Reviewed Nephrology Results: Hgb 11.8 g/dl (12.0-16.0) L 02/26/24 WBC 6.7 X10*3/uL (4.8-10.8) 02/26/24 Plt Count 191 X10*3/uL (160-400) 02/26/24 Sodium 141 mmol/L (135-145) 02/26/24 Potassium 3.6 mmol/L (3.3-5.1) 02/26/24 Chloride 103 mmol/L (96-108) 02/26/24 Carbon Dioxide 29 mmol/L (22-29) 02/26/24 BUN 10 mg/dL (9-16) 02/26/24 Creatinine 0.71 mg/dL (0.5-1.4) 02/26/24 Calcium 9.7 mg/dL (8.4-10.2) 02/26/24 Urine Protein Negative mg/dL (Neg-Trace) 02/26/24 Urine Creatinine 22.00 mg/dL 02/26/24 Protein/Creatinin Ratio TNP 02/26/24 Assessment & Plan Assessment & Plan (1) Hypertension: Code(s): I10 - Essential (primary) hypertension Category: Medical Qualifiers: Hypertension type: primary hypertension Qualified Code(s): I10 - Essential (primary) hypertension Plan Brisa has longstanding hypertension and is on multiple antihypertensive medications. Blood pressure is at goal now. She has no history of known retinopathy, left ventricular hypertrophy, proteinuria or renal dysfunction. She is on multiple antihypertensive medications . She had hypercalcemia with the primary hyperparathyroidism and had undergone parathyroid surgery. She should be on a low-sodium diet. Doppler of renal arteries were normal. She is going to be followed up for ongoing monitoring and continued care. All her questions were answered. Coding Level of Care Code Est Pt Level 4 (26534) Diagnoses Primary hypertension I10 Hypertension type: primary hypertension
[2024-03-06 16:40] VITALS: BP 122/80; PULSE 81; O2SAT 97; BMI 21.1
== END 2024-03-06 17:01 | disposition home or self-care (01) ==
PROVIDERS: PCP Internal Medicine; Visit Provider Internal Medicine Nephrology
DX: I10 Essential (primary) hypertension (principal)
CPT/HCPCS: 99214

== ENCOUNTER → 2024-03-06 16:13 | Outpatient (BNVA) | payer MEDICARE, MEDICAID, SELFPAY | PROVIDERS: PCP Internal Medicine; Visit Provider Internal Medicine Nephrology | DX: I10 Essential (primary) hypertension (principal); Z86.711 Personal history of pulmonary embolism; Z79.01 Long term (current) use of anticoagulants; Z79.899 Other long term (current) drug therapy | CPT/HCPCS: 99212 ==

== ENCOUNTER 2024-03-24 13:56 | Outpatient (AMB) | payer MEDICARE, MEDICAID, SELFPAY ==
--- NOTE | 2024-03-24 13:58 | A.OFFVIS_ITS ---
Vital Signs 03/24/24 14:01 Height 5 ft 3.09 in Weight 125 lb 14.143 oz BMI 22.2 BP 178/92 H Blood Pressure Location Rt brachial Position Sitting Pulse 65 Pulse Source Pulse Oximeter Intake Visit Reasons: Osteoporosis Intake Note: Patient present today for Osteoporosis follow up visit. 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 She has previous seen a [place] [facility] diagnosed in few yrs ago . Never Received treatment in the past except for alendronate on 11/13/22. history of pathologic fracture fragility fractures requiring kyphoplasty 10/08/2022. Has few servings of dietary calcium per day Not Takes Calcium supplement Not Takes IU of Vitamin D daily. takes PPI, anticoagulant, antiepileptic not taking glucocorticoid medication. 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 Has dentures No planned upcoming dental work or extractions. Does smoke DXA dated 09/28/21 : EXAMINATION: BONE DENSITOMETRY CLINICAL INDICATION: Postmenopausal. COMPARISON: Baseline BD dated 02/04/2018. TECHNIQUE: Using a [employer] DXA System (software version: 13.1) manufactured by [employer], dual-energy x-ray absorptiometry was performed of the lumbar spine and left hip. The images are of good technical quality. Summary results are attached. FINDINGS: AP SPINE L1-L4: Current: BMD 0.894 g/cm2, Z-score -1.3, T-score -2.4, osteopenia, 5.9% decrease from baseline (<5% change is not significant). Baseline: BMD 0.950 g/cm2. LEFT FEMUR, NECK: Current: BMD 0.670 g/cm2, Z-score -1.5, T-score -2.6, osteoporosis. Baseline: BMD 0.777 g/cm2. LEFT FEMUR, TOTAL: Current: BMD 0.704 g/cm2, Z-score -1.6, T-score -2.4, osteopenia, 11.7% decrease from baseline (<5% change is not significant). Baseline: BMD 0.797 g/cm2. IDENTIFIED RISK FACTORS: Rheumatoid arthritis, tobacco use (current smoker), height loss, glucocorticoids (chronic), menopause. HISTORY OF FRACTURE: None listed. MEDICATIONS: Calcium supplements or multivitamin, vitamin D. MM/XR DEXA axial skeleton IMPRESSION: 1. DIAGNOSIS: Osteoporosis based on the lowest T-score value of -2.6 in the femoral neck applying World Health Organization criteria.? ? Labs: Took Evenity 2 doses with rash in mouth, chest pain , rash and difficulty breathing - SOB remains after stopping . Reinitiated on steroids by Rheumatology [facility] Medical History Bronchitis Hx of nephrolithotomy with removal of calculi Swelling of finger joint of right hand Swelling of finger joint of left hand Hypocalcemia Coronary artery calcification seen on CAT scan Dyspnea Pulmonary nodules COPD (chronic obstructive pulmonary disease) Chest pain Pulmonary emboli Urinary urgency Hx of hemorrhoids Seropositive rheumatoid arthritis Surgical History Hx of tubal ligation Hx of hand surgery Hx of parathyroidectomy Hx of kyphoplasty History of back surgery History of esophagogastroduodenoscopy (EGD) Hx of colonoscopy Family History Father Cancer Mother Colon cancer HTN (hypertension) Diabetes Breast cancer Brother Lupus HTN (hypertension) Kidney transplanted Sister HTN (hypertension) Cancer Liver transplanted Other FH: cancer FH: mental illness Social History Household Members: None Housing: House Alcohol intake: former Patient Tobacco Use Status: Current everyday Tobacco user Tobacco use type: Cigarette Cigarettes Per Day: 5 Years Smoked: 43 Physical Exam Vital Signs: BMI result Body Mass Index 22.2 Assessment & Plan Assessment & Plan (1) Osteoporosis: Comment: History of hyper parathyroidism and fragility fractures Code(s): M81.0 - Age-related osteoporosis without current pathological fracture Category: Medical Qualifiers: Osteoporosis type: age-related Presence of current pathological fracture: with current pathological fracture Encounter type: subsequent encounter Fracture healing: with routine healing Qualified Code(s): M80.00XD - Age-related osteoporosis with current pathological fracture, unspecified site, subsequent encounter for fracture with routine healing Plan: This is a 58-year-old female with a history of primary hyperparathyroidism status post parathyroidectomy with normalization of calcium and PTH with recent vertebral of fragility fracture and kyphoplasty. Secondary workup was negative . She received 2 injections of Evenity recently had a slightly low calcium and last dose was held. Hypocalcemia resolved. She was also experiencing symptoms while taking the Evenity After long conversation with the patient, we decided to reinitiate Evenity for full 1 years course. Will try to get approval again for Evenity . Coding Level of Care Code Est Pt Level 3 (20451) Diagnoses Age-related osteoporosis with current pathological fracture with routine healing, subsequent encounter M80.00XD Osteoporosis type: age-related Presence of current pathological fracture: with current pathological fracture Encounter type: subsequent encounter Fracture healing: with routine healing
[2024-03-24 14:01] VITALS: BP 178/92; PULSE 65; BMI 22.2
== END 2024-03-24 14:35 | disposition home or self-care (01) ==
PROVIDERS: PCP Internal Medicine; Visit Provider Internal Medicine Endocrinology, Diabetes & Metabolism
DX: M80.00XD Age-related osteoporosis with current pathological fracture, unspecified site, subsequent encounter for fracture with routine healing (principal)
CPT/HCPCS: 99213

== ENCOUNTER → 2024-03-24 13:56 | Outpatient (BNVA) | payer MEDICARE, MEDICAID, SELFPAY | PROVIDERS: PCP Internal Medicine; Visit Provider Internal Medicine Endocrinology, Diabetes & Metabolism | DX: M80.00XD Age-related osteoporosis with current pathological fracture, unspecified site, subsequent encounter for fracture with routine healing (principal) | CPT/HCPCS: 99212 ==

== ENCOUNTER 2024-04-09 13:56 | Outpatient (AMB) | payer MEDICARE, MEDICAID, SELFPAY ==
--- NOTE | 2024-04-09 14:34 | AM.OFFVISNUR ---
Intake Visit Reasons: Evenity #1 Allergies romosozumab-aqqg [From Evenity] Allergy (Severe, Verified 03/24/24 14:07) Hives Penicillins [PENICILLINS] Allergy (Intermediate, Verified 03/24/24 14:07) RASH/HIVES dexamethasone Allergy (Verified 03/24/24 14:07) Eye Swelling adalimumab [From Humira] Adverse Reaction (Intermediate, Verified 03/24/24 14:07) Chest Pain Office Meds romosozumab-aqqg 210 mg/2.34 mL(105 mg/1.17 mL x2)subcutaneous syringe Performing Provider: Roddy Queen MD Performing Location: [facility] Administered by: Beatriz García RN on 04/09/24 14:34 Dose Route Admin Location Dispensed Lot Number Expiration Date NDC Produce Specialist 210 mg subcut bilateral upper arms 2.34 mL [id number] 07/21/25 74441-946-91 [facility] Comments: Restarting evenity injections per Dr. Queen We discussed the symptoms and she feels that the symptoms may not be related to the Evenity but due to her rheumatological problems as willing to restart it again . Consent form signed by patient. Pt tolerated injection well. Pt observed 15 minutes following injection without any adverse reactions. Pt advised to watch site for site reactions and to call us if they were to occur. Pt advised to iris the areas and to take a photo as well. Assessment & Plan Assessment & Plan Orders: Orders AMB Romosozumab Injection Patient Supplied Today M80.00XD - Age-related osteoporosis with current pathological fracture, unspecified site, subsequent encounter for fracture with routine healing Medications: New romosozumab-aqqg 210 mg (2.34 mL) subcut ONCE 2.34 mL 0RF M80.00XD - Age-related osteoporosis with current pathological fracture, unspecified site, subsequent encounter for fracture with routine healing
== END 2024-04-09 14:36 | disposition home or self-care (01) ==
PROVIDERS: PCP Internal Medicine
DX: M80.00XD Age-related osteoporosis with current pathological fracture, unspecified site, subsequent encounter for fracture with routine healing (principal)

== ENCOUNTER → 2024-04-09 13:56 | Outpatient (BNVA) | payer MEDICARE, MEDICAID, SELFPAY | PROVIDERS: PCP Internal Medicine | DX: M80.00XA Age-related osteoporosis with current pathological fracture, unspecified site, initial encounter for fracture (principal) | CPT/HCPCS: 96372; J3111 ==

== ENCOUNTER 2024-04-21 12:26 | Outpatient (REF) | payer MEDICARE, MEDICAID, SELFPAY ==
--- NOTE | ~2024-04-21 | US_ITS ---
EXAMINATION: US RETROPERITONEAL LIMITED (RENAL ONLY) CLINICAL INFORMATION: Calculus of kidney. COMPARISON: Ultrasound renal with Doppler 10/17/2023. CT abdomen and pelvis 02/20/2023. Renal ultrasound 09/19/2022. X-ray abdomen KUB 04/01/2019. TECHNIQUE: Real-time imaging of the kidneys. FINDINGS: RIGHT KIDNEY: 10.1 x 3.8 x 4.7 cm (SAG x AP x TRV). The kidney is normal in size, contour, and echogenicity. Renal cortical thickness is normal. No focal parenchymal lesions or hydronephrosis. There are two renal calculi in the lower pole measuring 0.2cm and the upper pole measuring 0.3cm. LEFT KIDNEY: 10.2 x 3.9 x 4.3 cm (SAG x AP x TRV). The kidney is normal in size, contour, and echogenicity. Renal cortical thickness is normal. No focal parenchymal lesions or hydronephrosis. There is a 0.3cm lower pole nonobstructing calculus. US/US renal BI IMPRESSION: Bilateral nonobstructing renal calculi. Electronically signed by: Allyson Leung MD 04/28/2024 09:24 AM EDT
== END 2024-04-21 12:27 | disposition home or self-care (01) ==
LOC: HO.US 12:26
PROVIDERS: PCP Internal Medicine; Visit Provider Urology
DX: N20.0 Calculus of kidney (principal)
CPT/HCPCS: 76775

== ENCOUNTER 2024-04-28 13:53 | Outpatient (AMB) | payer MEDICARE, MEDICAID, SELFPAY ==
[2024-04-28 14:03] VITALS: BP 128/60; PULSE 78; O2SAT 99; BMI 21.5
--- NOTE | 2024-04-28 14:03 | A.OFFVIS_ITS ---
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 After the procedure the patient developed significant shortness of breath and chest discomfort. She did undergo a CTA at [facility] which I personally reviewed demonstrating a left pulmonary cement emboli. The patient was treated initially was her outcome for about a month. Then she was taking off. She has noticed increasing shortness of breath with minimal activity moderate severity. Also developing chest discomfort. She continues to smoke cigarettes. We did talk about the importance of her quitting. We did talk about the findings on the CT scan also demonstrating pulmonary nodules that need close follow-up. And a brief walking oximetry the patient maintain a pulse ox of 98% which is reassuring and the heart rate was stable. Will plan to get blood works including a D-dimer at this time. If the D-dimer is elevated will go ahead and request a CTA to rule out thromboembolic disease. We know that that cement can be thrombogenic and can increase the risk of clotting. 01/24/2023 the patient is here for pulmonary follow-up visit. Overall the patient has been doing well. She is working on quitting smoking altogether. She is using the patch. The patient still having some dyspnea on exertion mild in severity. Overall doing better. She did have blood work during the last visit and she did have an elevated D-dimer therefore she underwent a CTA. She still had the area of residual cement within the pulmonary vasculature on the left hemithorax but otherwise no evidence of any thromboembolic disease. The patient's ground-glass opacities have subsided the patient also has pulmonary nodules some of them have improved as well. She will need some degree follow-up for the pulmonary nodule specially with high risk with her smoking history. She also has significant coronary artery disease that is described as moderately severe calcifications of the coronary arteries. Patient does have dyspnea on exertion and has complained of some chest pressure at times. Therefore I will have her undergo an EKG and also a stress test. Patient may benefit from Cardiology consultation if any abnormalities noted. 07/18/2023 the patient is here for a pulmonary follow-up visit. Overall the patient has been doing fairly well from a respiratory status. She does complaint of back pain. Been bothering her significant amount. She is going to be evaluated for sciatica soon. In the meantime we did review her CT scan of the chest that she had back in November 2022 demonstrating the persistence amount of her vessels secondary to her kyphoplasty. In addition to that underlying pulmonary nodules. She is a high-risk patient because of her smoking history. The patient will need to have a repeat CT scan in a year from her last 1 was be November 2023. she will continue with current respiratory therapy. Will follow-up in December after her CT scan. 01/21/2024 the patient is here for a pulmonary follow-up visit. Overall the patient has been doing okay. She has been developing worsening chest congestion. Also some chest tightness. In addition to that her arthritis has been more active. She had been on biologic therapy for her rheumatoid arthritis and then switched over to methotrexate. She has been on methotrexate now just for several weeks. Still not controlling her arthritis. We did talk about methotrexate be in an excellent medication for rheumatoid arthritis. Although the patient is aware that in some cases it can result in worsening adverse pulmonary symptoms. She did have a CT scan in November which is personally reviewed. I do not believe she was on the methotrexate done. She had a slight area of ground-glass opacity. She also has evidence of chronic bronchitis. We are going to go ahead and treat her for bronchitis with doxycycline. She is going to try to provide us with a sputum culture. In the meantime the patient also has some wheezing and will place her on low dose prednisone taper to see if we can provide some relief. Will monitor closely her symptoms. If the patient continues to have worsening cough, will consider additional imaging at that point. To make sure that she has not developing any adverse effects from the medication. She continues with respiratory therapy. Will follow-up until 3 months. If she does not worsening symptoms prior to this she will call for an earlier assessment. 04/28/2024 the patient is here for a pulmonary follow-up visit. The patient continues to struggle with her breathing. She has still having significant chest congestion shortness breath and chest tightness. She does not feel like the Breo has been helping. She did see her primary care doctor recently and she was placed on another course of antibiotics and prednisone. She felt better and then she stopped the prednisone. Once she stopped the prednisone her arthritis became very active. Therefore she started small dose again. She has also been cutting down the smoking. She is only smoking about 2 cigarettes a day. She needs to quit altogether. She is wanting to try the Nicorette gum. The patient is also following closely with Rheumatology. He again looked at her CT scan of the chest demonstrating some evidence of bronchitis. The patient also has pulmonary nodules. She will need to have follow-up. But at this point she does not need any additional imaging at this time. Will go ahead and treat her effec tively with maximizing her respiratory therapy, started her on azithromycin 3 times a week. The patient may also be a good candidate for Dalires to minimize her prednisone use in to improve her chronic bronchitis symptoms. She needs to be careful because she does not have too much weight to lose. If she notices significant weight loss then will have to either decrease it or stop it. The patient also monitor for any GI symptoms. [facility] Medical History Bronchitis Hx of nephrolithotomy with removal of calculi Swelling of finger joint of right hand Swelling of finger joint of left hand Hypocalcemia Coronary artery calcification seen on CAT scan Dyspnea Pulmonary nodules COPD (chronic obstructive pulmonary disease) Chest pain Pulmonary emboli Urinary urgency Hx of hemorrhoids Seropositive rheumatoid arthritis Surgical History Hx of tubal ligation Hx of hand surgery Hx of parathyroidectomy Hx of kyphoplasty History of back surgery History of esophagogastroduodenoscopy (EGD) Hx of colonoscopy Family History Father Cancer Mother Colon cancer HTN (hypertension) Diabetes Breast cancer Brother Lupus HTN (hypertension) Kidney transplanted Sister HTN (hypertension) Cancer Liver transplanted Other FH: cancer FH: mental illness Social History Household Members: None Housing: House Alcohol intake: former Patient Tobacco Use Status: Current everyday Tobacco user Tobacco use type: Cigarette Cigarettes Per Day: 5 Years Smoked: 43 Review of Systems Const Denies fatigue, Denies fever(s), Denies night sweats, Denies poor appetite and Denies weight loss Eyes Details: glasses Reports requires corrective lenses ENT Denies dysphagia Card Denies chest pain and Reports dyspnea on exertion Resp Reports chest congestion, Reports cough, Reports dyspnea on exertion and Reports wheezing GI Denies dysphagia Musc Reports abnormal gait, Reports back pain, Reports myalgias, Reports arthralgias, Reports joint swelling and Reports limited range of motion Skin/Breast Denies pruritus, Denies lesions, Denies rash and Denies jaundice Neuro Denies Abnormal speech present and Reports abnormal gait Psych Reports mood swings Endo Denies fatigue Mason/Lymph Denies as per HPI, Denies easy bleeding and Denies easy bruising Aller/Immun Reports wheezing Physical Exam Vital Signs: Last Vital Signs Pulse 78 04/28/24 14:03 BP 128/60 04/28/24 14:03 Pulse Ox 99 04/28/24 14:03 Oxygen Delivery Method Room Air 04/28/24 14:03 BMI result Body Mass Index 21.5 Const General: cooperative, no acute distress, alert and awake Nutritional Appearance: well nourished Orientation/consciousness: patient oriented x3 Limitations: no limitations HEENT Head: Yes normal to inspection and Yes atraumatic Neck Neck: Yes normal visual inspection, Yes full ROM and Yes no lymphadenopathy Chest Chest palpation & inspection: normal inspection of the chest Resp Effort & Inspection: normal respiratory effort and prolonged expiratory phase Auscultation: no rhonchi, wheezes and diminished lung sounds Cardio Rate: regular rate Rhythm: regular rhythm GI Palpation (GI): Soft to palpation General: Yes no CVA tenderness Back/Spine/Pelvis Back: no CVA tenderness Neuro General: patient oriented x3 and moves all extremities Speech: No Abnormal speech present Extrem General: Yes normal to inspection Results Reviewed Results Reviewed: [address] [address] [address] Scan Report Signed Patient: Brisa Romero I MR#: [id number] : 1965 Acct:[id number] Age/Sex: 58 / F ADM Date: 11/28/23 Loc: HO.CT Attending Dr: John Meraz MD Ordering Physician: John Meraz MD Date of Service: 11/28/23 Procedure(s): CT chest wo IV con Accession Number(s): [id number] cc: Jackie Watt MD; John Meraz MD~ EXAMINATION: CT CHEST WITHOUT CONTRAST CLINICAL INFORMATION: Pulmonary nodule follow-up. COMPARISON: CTA chest 09/23/2022, 09/01/2022. TECHNIQUE: Multidetector volumetric CT imaging of the chest was done. Axial MIP volume rendering provided. Sagittal and coronal reformatted images were obtained. This CT examination was performed using dose optimization techniques as appropriate, variously including the following: *Automated exposure control *Adjustment of mA and/or kV according to patient size (this includes techniques or standardized protocols for targeted exams where dose is matched to indication/reason for exam; i.e. extremities or head) *Use of iterative reconstruction technique DLP: 123 mGy-cm FINDINGS: LUNGS: Stable 4 mm and 3 mm pulmonary nodules in the superior segment of the left lower lobe. Mild centrilobular emphysema. Diffuse airway wall thickening consistent with chronic airways disease. Cystic changes in the bilateral lower lobes are stable. Subpleural reticular changes may reflect early interstitial disease and are unchanged. No consolidation. MEDIASTINUM: No adenopathy. No aortic aneurysm. No pericardial effusion. High density material at the bifurcation of the left lower lobe pulmonary arteries consistent with an embolized vertebral augmentation cement and unchanged compared to previous imaging. CORONARY ARTERY CALCIFICATION: None visualized on this study. PLEURA: There is no pleural effusion. No pleural mass or thickening. AXILLA: No lymphadenopathy. UPPER ABDOMEN: Unremarkable. OSSEOUS STRUCTURES: Degenerative changes in the spine. Vertebral augmentation cement at L2 incompletely visualized. CT/CT chest wo IV con IMPRESSION: Stable sub-6 mm pulmonary nodules in the left lower lobe for which no imaging follow-up is recommended as per Fleischner Society guidelines. Mild emphysema. Chronic airways disease. Stable subpleural reticular changes may reflect early/mild interstitial lung disease. Fleischner guidelines were followed. Dictated By: Williams Robert MD Signed By: <Electronically signed by Williams Robert MD in OV> 12/17/23 1039 DD/ 1137 TD/TT: Sexual Abuse Counsellor: AMIRA Assessment & Plan Assessment & Plan (1) COPD (chronic obstructive pulmonary disease): Code(s): J44.9 - Chronic obstructive pulmonary disease, unspecified Category: Medical Qualifiers: COPD type: COPD with acute lower respiratory infection Qualified Code(s): J44.0 - Chronic obstructive pulmonary disease with (acute) lower respiratory infection (2) Pulmonary nodules: Code(s): R91.8 - Other nonspecific abnormal finding of lung field Category: Medical (3) Coronary artery calcification seen on CAT scan: Code(s): I25.10 - Atherosclerotic heart disease of [place] coronary artery without angina pectoris Category: Medical (4) Bronchitis: Code(s): J40 - Bronchitis, not specified as acute or chronic Category: Medical (5) Pulmonary emboli: Code(s): I26.99 - Other pulmonary embolism without acute cor pulmonale Category: Medical Qualifiers: Acute cor pulmonale presence: unspecified Chronicity: chronic Pulmonary embolism type: unspecified Qualified Code(s): I27.82 - Chronic pulmonary embolism Plan stop Breo 200 start Breztri start Azithromycin MWF start Daliresp taper off Prednisone BISI as needed Smoking cessation: nicorette gum F/U 2 months Medications: New azithromycin Take 1 tablet on Saturday/Saturday/Saturday 250 mg PO 3XW 28 days 12 tabs 6RF K21.9 - Gastro-esophageal reflux disease without esophagitis kevdajlmni-[id number]-kcqstdlpyo 160-9-4.8 mcg/actuation (Breztri Aerosphere) 2 inhalations inhalation BID 10.7 grams 11RF roflumilast (Daliresp) 500 mcg PO DAILY 30 days 30 tabs 6RF Discontinued Breo Ellipta 200-25 mcg/dose (fluticasone furoate-vilanterol) Discontinued Reason: Doctor's Order 1 inh inhalation DAILY 30 days 60 ea 11RF NS Coding Level of Care Code Est Pt Level 4 (04447) Complex EM visit Add On G2211 Diagnoses Chronic obstructive pulmonary disease with acute lower respiratory infection J44.0 COPD type: COPD with acute lower respiratory infection Pulmonary nodules R91.8 Coronary artery calcification seen on CAT scan I25.10 Bronchitis J40 Chronic pulmonary embolism, unspecified pulmonary embolism type, unspecified whether acute cor pulmonale present I27.82 Acute cor pulmonale presence: unspecified Chronicity: chronic Pulmonary embolism type: unspecified Time Spent (min) 20
== END 2024-04-28 14:33 | disposition home or self-care (01) ==
PROVIDERS: PCP Internal Medicine; Visit Provider Hospitalist
DX: J44.0 Chronic obstructive pulmonary disease with (acute) lower respiratory infection (principal); R91.8 Other nonspecific abnormal finding of lung field; I25.10 Atherosclerotic heart disease of native coronary artery without angina pectoris; J40 Bronchitis, not specified as acute or chronic; I27.82 Chronic pulmonary embolism
CPT/HCPCS: 99214; G2211

== ENCOUNTER → 2024-04-28 13:53 | Outpatient (BNVA) | payer MEDICARE, MEDICAID, SELFPAY | PROVIDERS: PCP Internal Medicine; Visit Provider Hospitalist | DX: J44.0 Chronic obstructive pulmonary disease with (acute) lower respiratory infection (principal); J40 Bronchitis, not specified as acute or chronic; R91.8 Other nonspecific abnormal finding of lung field; I25.10 Atherosclerotic heart disease of native coronary artery without angina pectoris; I27.82 Chronic pulmonary embolism | CPT/HCPCS: 99212 ==

== ENCOUNTER 2024-04-30 14:46 | Outpatient (AMB) | payer MEDICARE, MEDICAID, SELFPAY ==
[2024-04-30 14:52] VITALS: BP 146/88; PULSE 90; BMI 21.8
--- NOTE | 2024-04-30 14:52 | MHC.OFFVIS ---
Vital Signs 04/30/24 14:52 Height 5 ft 3 in Weight 123 lb 0.287 oz BMI 21.8 BP 146/88 H Blood Pressure Location Lt brachial Position Sitting Pulse 90 Intake Visit Reasons: F/u 6 months [facility]IC Intake Note: Brisa presents to in office 6 months follow up of CIC. CC: Medical Supervisor Required: No Allergies Penicillins [PENICILLINS] Allergy (Intermediate, Verified 06/16/24 14:27) RASH/HIVES dexamethasone Allergy (Verified 06/16/24 14:27) Eye Swelling adalimumab [From Humira] Adverse Reaction (Intermediate, Verified 06/16/24 14:27) Chest Pain HPI HPI F/u 6 months CIC: Details: Assessment & Plan (1) GERD (gastroesophageal reflux disease): Code(s): K21.9 - Gastro-esophageal reflux disease without esophagitis (2) Chronic idiopathic constipation: Code(s): K59.04 - Chronic idiopathic constipation (3) Proctalgia fugax: Code(s): K59.4 - Anal spasm Plan She is on bid Aciphex, famotidine for breakthrough, but educated to us prn since she has osteoporosis. She continues on her Linzess, dicyclomine, simethicone with good control of her bowels.. She also has bisacodyl for p.r.n. use for her constipation. She also uses Proctosol cream when she has hemorrhoidal complications with good results. Her uncle a few weeks ago from stomach ca. She had a very upset stomach from drinking the HP prep and from holding her aciphex for 2 weeks (Dr. Braga ordered). She was also given carafate but this did not help at all. Her stomach has settled after restarting her rabeprazole. For now she is satisfied with her GI regimen and agreeable to a 6 month follow-up. Medications: Refilled dicyclomine 20 mg PO QID 120 tabs 2RF simethicone 180 mg PO QID 120 caps 2RF R14.0 - Abdominal distension (gaseous) bisacodyl 10 mg (2 x 5 mg) PO BEDTIME 60 tabs 6RF K59.04 - Chronic idiopathic constipation linaclotide (Linzess) 290 mcg PO DAILY 30 caps 6RF K59.04 - Chronic idiopathic constipation Discontinued sucralfate (Carafate) swish in mouth and swallow; use after food/drink Discontinued Reason: Doctor's Order 10 mL PO QID 1,000 mL 0RF Correspondence On 05/10/23 @ 09:14 Beatriz Shipman Wrote To Sarika noted, i will add an alert for july to reach out to patient to reschedule then, will need the clearance in place first Beatriz Shipman removed from item. On 05/10/23 @ 09:03 Jelly Brar Wrote To Beatriz Shipman (2) yes notified OR- will need to be R/S sometime in July. On 05/10/23 @ 08:53 Beatriz Shipman Wrote To SarikaOctober (2) is this being canceled again? On 05/10/23 @ 08:45 Jelly Brar Wrote To Sarika (2) Sorry procedure is 06/06, not 05/27. On 05/10/23 @ 08:43 Jelly Brar Wrote To Sarika (2) Looks like she did not have her echo/ stress test on 05/07, she is rescheduled for 07/19. Her EGD/[place] is 05/27 with F/U appt on 06/20- October would you like me to cancel this appt? I will call her to cancel, and notify OR. On 04/09/23 @ 15:48 Jelly Brar Wrote To Jelly Brar noted On 04/09/23 @ 15:35 Sarika Wrote To Jelly Brar I say have her PCP tell us when it is okay to proceed before rescheduling. On 04/09/23 @ 11:23 Jelly Brar Wrote To Sarika spoke with patient regarding upper endoscopy/ colonoscopy on 04/12 that she will need to R/S and have cardiology workup first. Patient reported her PCP wanted her to put her procedures on hold also since she was having S/E from [facility] - currently off this. Patients upper/ colo R/S for 05/27. On 04/09/23 @ 10:57 Jelly Brar Wrote To SarikaOctober Trip October, * see notes below. Looks like Brisa's upper Endo and colo will have to be R/S. Do you need to put in cardiac pre op exam? not sure how that works. On 04/09/23 @ 10:28 Annamarie Milan Wrote To Jelly Brar Trip [place], Looks like Dr Sahni wants her to have an echo and a stress due to complaints of chest pain. We should have those results before proceeding with GI procedures. Thanks. On 04/09/23 @ 09:38 Jelly Brar Wrote To Annamarie Milan Trip [place], looking ahead, Brisa was seen by cardiology (Dr. Sahni) on 03/27 for chest pain and SOB having this since she underwent Vertebroplasty in september and small amt of cement went into left P.A. She has f/u in cardiology 05/13, looks like she is having an echo. Should I message cardiology if the procedure should be postponed until further w/u? thoughts? TY TODAY'S VISIT She is on bid Aciphex, famotidine for breakthrough, but educated to us prn since she has osteoporosis. She continues on her Linzess, dicyclomine, simethicone with good control of her bowels.. She also has bisacodyl for p.r.n. use for her constipation. She also uses Proctosol cream when she has hemorrhoidal complications with good results. She was just dx'd with chronic bronchitis by Dr. Meraz. She has had some medication changes, and she has been on prednisone. She is feeling very bloated and is having a lot of loud flatulence - that comes w/o warning. She is now on Daliresp adn having diarrhea and bloating. Will decrease LInzess to 145mcg - she has not needed to use the bisacodyl which is reasonable. I am also going to advise that she stay away from the MiraLax. She is having a lot of bloating and was taking simethicone 4 times a day and this does not seem to be helping the problem so I think were going to stop this and her famotidine and put her on Creon to try to simplify her regimen and her pill complexity. She is going to continue on the rabeprazole for now and she is going to add Tums to her regimen for breakthrough heartburn which is still problem for her. I am not sure if this is due to bowel hyperactivity causing more reflux or the bloating but hopefully we can make this better going forward Return office visit in 4 weeks [facility] Medical History Bronchitis Hx of nephrolithotomy with removal of calculi Swelling of finger joint of right hand Swelling of finger joint of left hand Hypocalcemia Coronary artery calcification seen on CAT scan Dyspnea Pulmonary nodules COPD (chronic obstructive pulmonary disease) Chest pain Pulmonary emboli Urinary urgency Hx of hemorrhoids Seropositive rheumatoid arthritis Surgical History Hx of tubal ligation Hx of hand surgery Hx of parathyroidectomy Hx of kyphoplasty History of back surgery History of esophagogastroduodenoscopy (EGD) Hx of colonoscopy Family History Father Cancer Mother Colon cancer HTN (hypertension) Diabetes Breast cancer Brother Lupus HTN (hypertension) Kidney transplanted Sister HTN (hypertension) Cancer Liver transplanted Other FH: cancer FH: mental illness Social History Household Members: None Housing: House Alcohol intake: former Patient Tobacco Use Status: Current everyday Tobacco user Tobacco use type: Cigarette Cigarettes Per Day: 5 Years Smoked: 43 Review of Systems Const Denies fatigue, Denies fever(s), Denies night sweats, Denies poor appetite and Denies weight loss Eyes Details: glasses Reports requires corrective lenses ENT Reports Normal hearing present, Denies dental pain, Denies dysphagia, Denies hearing loss, Denies mouth pain, Denies odynophagia, Denies throat swelling, Denies tongue swelling and Reports other (Dentition adequate) Card Reports no additional complaints and Reports dyspnea on exertion Resp Reports dyspnea on exertion GI Details: Denies abdominal pain, Denies melena, Denies bloating, Denies hematochezia, Reports constipation, Denies GI cramping, Denies dysphagia, Denies excessive flatus, Denies early satiety, Reports heartburn, Reports diarrhea, Denies nausea, Denies odynophagia, Denies vomiting and Denies hematemesis Skin/Breast Denies pruritus, Denies lesions, Denies rash and Denies jaundice Neuro Reports Normal hearing present and Denies Abnormal speech present Endo Denies fatigue Aller/Immun Denies throat swelling and Denies tongue swelling Physical Exam Vital Signs: Last Vital Signs Pulse 90 04/30/24 14:52 BP 146/88 H 04/30/24 14:52 BMI result Body Mass Index 21.8 Const General: cooperative, no acute distress, well developed and well groomed Nutritional Appearance: average body habitus and well nourished Orientation/consciousness: oriented to person, oriented to place and oriented to time Limitations: No language barrier HEENT Head: Yes normocephalic and Yes atraumatic Eyes General: appearance normal, both eyes and all related structures Pupils: Equal, round and reactive pupils present Neck Neck: Yes normal visual inspection and Yes no lymphadenopathy Thyroid: Thyroid normal Resp Effort & Inspection: normal respiratory effort and able to speak in complete sentences Auscultation: clear to auscultation bilaterally Cardio Rate: regular rate Rhythm: regular rhythm Heart sounds: Normal, physiologic split S2 sound present Peripheral pulses: radial pulses present and posterior tibial pulses present GI Inspection: No distended and No Abdominal panniculus present Palpation (GI): Soft to palpation, nontender, no guarding, not rigid and No hepatosplenomegaly present Percussion: Yes normal to percussion Auscultation: normal bowel sounds Rectal Exam - Female: deferred Skin General skin exam: no rashes or lesions noted, turgor normal, skin not dry, no jaundice, No spider nevi and no striae Rashes: no rashes Nails: normal Neuro General: oriented to person, oriented to place and oriented to time Cranial nerves: Yes Equal, round and reactive pupils present and Yes Normal hearing present Speech: No Abnormal speech present Extrem General: Yes normal to inspection, No clubbing, No cyanosis and No edema Psych Appearance: grossly normal and well kempt Mental Status: mental status grossly normal Speech and movement: Normal speech and movement present Affect: normal affect Attitude: cooperative Thought process: Normal thought process present and not confabulating Thought content: Normal thought content present Insight: Fair insight present (Psych) Judgement: Fair judgement present (Psych) Assessment & Plan Assessment & Plan (1) GERD (gastroesophageal reflux disease): Code(s): K21.9 - Gastro-esophageal reflux disease without esophagitis Category: Medical (2) Chronic idiopathic constipation: Code(s): K59.04 - Chronic idiopathic constipation Category: Medical (3) Proctalgia fugax: Code(s): K59.4 - Anal spasm Category: Medical (4) Family history of colon cancer in mother: Comment: 09/2023 scope=neg exam repeat 5 years; 2018 scope hyperplastic polyps repeat 2022 Code(s): Z80.0 - Family history of malignant neoplasm of digestive organs Category: Medical Plan She is on bid Aciphex, famotidine for breakthrough, but educated to us prn since she has osteoporosis. She continues on her Linzess, dicyclomine, simethicone with good control of her bowels.. She also has bisacodyl for p.r.n. use for her constipation. She also uses Proctosol cream when she has hemorrhoidal complications with good results. She was just dx'd with chronic bronchitis by Dr. Meraz. She has had some medication changes, and she has been on prednisone. She is feeling very bloated and is having a lot of loud flatulence - that comes w/o warning. She is now on Daliresp and is having diarrhea and bloating. Will decrease LInzess to 145mcg - she has not needed to use the bisacodyl which is reasonable. I am also going to advise that she stay away from the MiraLax. She is having a lot of bloating and was taking simethicone 4 times a day and this does not seem to be helping the problem so I think were going to stop this and her famotidine and put her on Creon to try to simplify her regimen and her pill complexity. She is going to continue on the rabeprazole for now and she is going to add Tums to her regimen for breakthrough heartburn which is still problem for her. I am not sure if this is due to bowel hyperactivity causing more reflux or the bloating but hopefully we can make this better going forward Return office visit in 4 weeks Medications: New [id number] 24,000-76,000 -120,000 unit (Creon) 2 caps PO BID 120 caps 6RF 30 days K58.9 - Irritable bowel syndrome, unspecified linaclotide (Linzess) 145 mcg PO QAM 30 caps 6RF K59.04 - Chronic idiopathic constipation Discontinued famotidine Discontinued Reason: Doctor's Order 40 mg PO BID 180 tabs 0RF K21.9 - Gastro-esophageal reflux disease without esophagitis, R13.10 - Dysphagia, unspecified linaclotide Discontinued Reason: Doctor's Order 290 mcg PO DAILY 30 caps 6RF K59.04 - Chronic idiopathic constipation On Hold bisacodyl Hold Comment: Doctor's Order 10 mg (2 x 5 mg) PO BEDTIME 60 tabs 0RF K59.04 - Chronic idiopathic constipation bisacodyl Hold Comment: Doctor's Order 10 mg (2 x 5 mg) PO BEDTIME 60 tabs 6RF K59.04 - Chronic idiopathic constipation Coding Level of Care Code Est Pt Level 3 (66031) Diagnoses GERD (gastroesophageal reflux disease) K21.9 Chronic idiopathic constipation K59.04 Proctalgia fugax K59.4 Family history of colon cancer in mother Z80.0
== END 2024-04-30 16:02 | disposition home or self-care (01) ==
PROVIDERS: PCP Internal Medicine; Visit Provider Nurse Practitioner
DX: K21.9 Gastro-esophageal reflux disease without esophagitis (principal); K59.04 Chronic idiopathic constipation; K59.4 Anal spasm; Z80.0 Family history of malignant neoplasm of digestive organs
CPT/HCPCS: 99213

== ENCOUNTER → 2024-04-30 14:46 | Outpatient (BNVA) | payer MEDICARE, MEDICAID, SELFPAY | PROVIDERS: PCP Internal Medicine; Visit Provider Nurse Practitioner | DX: K59.04 Chronic idiopathic constipation (principal); K21.9 Gastro-esophageal reflux disease without esophagitis; K59.4 Anal spasm; R13.10 Dysphagia, unspecified; Z80.0 Family history of malignant neoplasm of digestive organs | CPT/HCPCS: 99212 ==

== ENCOUNTER 2024-05-07 13:59 | Outpatient (AMB) | payer MEDICARE, MEDICAID, SELFPAY ==
--- NOTE | 2024-05-07 14:32 | AM.OFFVISNUR ---
Intake Visit Reasons: evenity #2 Allergies Penicillins [PENICILLINS] Allergy (Intermediate, Verified 04/30/24 15:01) RASH/HIVES dexamethasone Allergy (Verified 04/30/24 15:01) Eye Swelling adalimumab [From Humira] Adverse Reaction (Intermediate, Verified 04/30/24 15:01) Chest Pain Office Meds romosozumab-aqqg 210 mg/2.34 mL(105 mg/1.17 mL x2)subcutaneous syringe Performing Provider: Roddy Queen MD Performing Location: [facility] Endocrinology Administered by: Beatriz García RN on 05/07/24 14:32 Dose Route Admin Location Dispensed Lot Number Expiration Date [facility] Medical Claims Assistant 210 mg subcut bilateral upper arms 2.34 mL [id number] 04/20/26 [id number] [facility] Comments: Consent form signed. Pt tolerated injection well. No adverse reactions with previous injections. Assessment & Plan Assessment & Plan Orders: Orders AMB Romosozumab Injection Patient Supplied Today M80.00XD - Age-related osteoporosis with current pathological fracture, unspecified site, subsequent encounter for fracture with routine healing Medications: New romosozumab-aqqg 210 mg (2.34 mL) subcut ONCE 2.34 mL 0RF M80.00XD - Age-related osteoporosis with current pathological fracture, unspecified site, subsequent encounter for fracture with routine healing
== END 2024-05-07 14:28 | disposition home or self-care (01) ==
PROVIDERS: PCP Internal Medicine
DX: M80.00XD Age-related osteoporosis with current pathological fracture, unspecified site, subsequent encounter for fracture with routine healing (principal)

== ENCOUNTER → 2024-05-07 13:59 | Outpatient (BNVA) | payer MEDICARE, MEDICAID, SELFPAY | PROVIDERS: PCP Internal Medicine | DX: M80.00XD Age-related osteoporosis with current pathological fracture, unspecified site, subsequent encounter for fracture with routine healing (principal) | CPT/HCPCS: 96372; J3111 ==

== ENCOUNTER 2024-05-21 12:52 | Outpatient (AMB) | payer MEDICARE, MEDICAID, SELFPAY ==
--- NOTE | 2024-05-21 10:43 | MHC.OFFVIS ---
Intake Visit Reasons: 9 Month F/U Intake Note: Patient is present for 9m f/u Urology Medication:fesoterodine Antibiotic Allergy:penicillins Blood Thinner:none Nitrogen Operator Required: No Allergies Penicillins [PENICILLINS] Allergy (Intermediate, Verified 05/21/24 13:01) RASH/HIVES dexamethasone Allergy (Verified 05/21/24 13:01) Eye Swelling adalimumab [From Humira] Adverse Reaction (Intermediate, Verified 05/21/24 13:01) Chest Pain Medication List - Last Reconciled 05/21/24 by Jt Witt MD acetaminophen ER 650 mg PO TID PRN albuterol sulfate mg inhalation albuterol sulfate 90 mcg/actuation 2 inhalations inhalation QID atorvastatin 40 mg PO DAILY 90 days azithromycin 250 mg PO 3XW 28 days bisacodyl 10 mg (2 x 5 mg) PO BEDTIME gwjuwtwnzp-hsnsrxkf-vnnfmqfitb 160-9-4.8 mcg/actuation (Breztri Aerosphere) 2 inhalations inhalation BID buspirone 15 mg PO BID celecoxib 100 mg PO DAILY cetirizine 10 mg PO DAILY cholecalciferol (vitamin D3) 50 mcg PO DAILY diclofenac sodium 1% 1 - 2 grams topical BID dicyclomine 20 mg PO QID fluticasone propionate 50 mcg/actuation sprays intranasal folic acid 1 mg PO DAILY hydrocortisone 2.5% (Procto-Med HC) 1 appl MA BID PRN lidocaine 5% 2 patches topical DAILY linaclotide (Linzess) 145 mcg PO QAM twyjbu-rzpqhbnd-orifogl 24,000-76,000 -120,000 unit (Creon) 2 caps PO BID 30 days lorazepam 1 mg PO BID PRN lurasidone 20 mg PO DAILY methotrexate sodium 20 mg (8 x 2.5 mg) PO QWEEK metoprolol succinate ER 100 mg PO DAILY mometasone-formoterol 200-5 mcg/actuation (Dulera) 2 puffs inhalation Q12H 30 days montelukast 10 mg PO DAILY naloxone 4 mg/actuation 0 sprays intranasal nebulizer and compressor (Vios Aerosol Delivery System) As directed nicotine (polacrilex) (Nicorette) 4 mg buccal Q4H PRN nifedipine ER 120 mg (2 x 60 mg) PO DAILY 90 days nortriptyline 10 mg PO BEDTIME oxycodone 10 mg PO Q6H PRN oxycodone mg PO oxycodone ER (OxyContin) 30 mg PO BID polyethylene glycol 3350 17 grams PO DAILY prednisolone acetate 1% drps ophthalmic (eye) prednisolone sodium phosphate mg PO prednisone mg PO pregabalin 300 mg PO BID rabeprazole 20 mg PO BID roflumilast (Daliresp) 500 mcg PO DAILY 30 days romosozumab-aqqg (Evenity) 210 mg (2.34 mL) subcut .qmonthly tamsulosin (Flomax) 0.4 mg PO BEDTIME tizanidine 6 mg PO BEDTIME PRN triamcinolone acetonide (Nasacort) 1 spray intranasal DAILY valacyclovir 1,000 mg PO DAILY valsartan-hydrochlorothiazide 320-25 mg 1 tab PO DAILY vibegron (Gemtesa) 75 mg PO DAILY zolpidem 10 mg PO BEDTIME HPI Comments Details: 05/21/24--Brisa is a 59-year-old female who is followed for nephrolithiasis and overactive bladder symptoms. Pt is on pain management, opiods for chronic back pain. History of hypercalcemia and hypercalciuria, hyperparathyroid, status post hyperparathyroidectomy in 2020. Discussed renal ultrasound results. renal ultrasound 04/21/2024 bilateral kidney stones 2-3 mm. Further evaluation with 24 hour urine. The patient is on Toviaz for urinary symptoms of urge. She states that she sometimes has the urge to go every hour and when she tries to urinate she has to bear down and push to empty the bladder. I instructed not to push when voiding. Will change medication therapy Gemtesa 75 mg daily and Flomax 0.4 mg at night. Review of chart: 07/17/23?Brisa is a 58-year-old female who presents today to the office for a Telehealth follow-up. Video attempted She is being followed for nephrolithiasis and LUTS of urgency and incomplete bladder emptying.? The pt states she is doing well, denies dysuria or hematuria or flank pain. She has a history of hypercalciuria and status post hyperparathyroidectomy in November 2020. Past Medical history: Hypertension, rheumatoid arthritis, and chronic back pain.? She has history of pulmonary embolism and was on blood thinner.?She has quit smoking and is on nicotine 20 mg patches The patient is using cane to ambulate due to lower back pain and rheumatoid arthritis and braces for both knees OAB therapy plan includes behaviorial modification-- timed void every 2-3 hours, Toviaz 4 mg QD Review of testing: Results: CT abdomen/pelvis --- 02/20/[address] imaging evidence of urinary tract calculi or hydronephrosis. PFSH Medical History Bronchitis Hx of nephrolithotomy with removal of calculi Swelling of finger joint of right hand Swelling of finger joint of left hand Hypocalcemia Coronary artery calcification seen on CAT scan Dyspnea Pulmonary nodules COPD (chronic obstructive pulmonary disease) Chest pain Pulmonary emboli Urinary urgency Hx of hemorrhoids Seropositive rheumatoid arthritis Surgical History Hx of tubal ligation Hx of hand surgery Hx of parathyroidectomy Hx of kyphoplasty History of back surgery History of esophagogastroduodenoscopy (EGD) Hx of colonoscopy Family History Father Cancer Mother Colon cancer HTN (hypertension) Diabetes Breast cancer Brother Lupus HTN (hypertension) Kidney transplanted Sister HTN (hypertension) Cancer Liver transplanted Other FH: cancer FH: mental illness Social History Household Members: None Housing: House Alcohol intake: former Patient Tobacco Use Status: Current everyday Tobacco user Tobacco use type: Cigarette Cigarettes Per Day: 5 Years Smoked: 43 Review of Systems Const All systems reviewed & are unremarkable except as noted in HPI and below Reports no additional complaints Eyes Reports no additional complaints ENT Reports no additional complaints Card Reports no additional complaints Resp Reports no additional complaints GI Reports no additional complaints Reports as per HPI Musc Reports no additional complaints Skin/Breast Reports system reviewed and no additional complaints, except as documented Neuro Reports no additional complaints Psych Reports no additional complaints Endo Reports no additional complaints Mason/Lymph Reports no additional complaints Aller/Immun Reports no additional complaints Results AMB Urinalysis, Automated UA Leukoctes 0 Cecilia/uL Last Edit by DRU Lugo on 05/21/24 13:12 UA Nitrite Negative Last Edit by DRU Lugo on 05/21/24 13:12 UA Urobilinogen 0.2 mg/dL Last Edit by DRU Lugo on 05/21/24 13:12 UA Protein 0 mg/dL Last Edit by DRU Lugo on 05/21/24 13:12 UA pH 7.0 Last Edit by Alejandrina Schwarz CCM on 05/21/24 13:12 UA Blood 0 Art/uL Last Edit by DRU Lugo on 05/21/24 13:12 UA Specific [place] 1.010 Last Edit by Alejandrina Schwarz CCM on 05/21/24 13:12 UA Ketone Negative Last Edit by DRU Lugo on 05/21/24 13:12 UA Bilirubin 0 mg/dL Last Edit by DRU Lugo on 05/21/24 13:12 UA Glucose 0 mg/dL Last Edit by Alejandrina Schwarz [facility] on 05/21/24 13:12 Results Reviewed Results Reviewed: Laboratory Last Values Urine pH (Auto) 7.0 05/21/24 13:11 Specific [place] (Auto) 1.010 05/21/24 13:11 Urine Protein (Auto) 0 mg/dL 05/21/24 13:11 Glucose (UA)(Auto) 0 mg/dL 05/21/24 13:11 Urine Ketones (Auto) Negative 05/21/24 13:11 Urine Blood (Auto) 0 Art/uL 05/21/24 13:11 Urine Nitrite (Auto) Negative 05/21/24 13:11 Urine Bilirubin (Auto) 0 mg/dL 05/21/24 13:11 Urine Urobilinogen (Auto) 0.2 mg/dL 05/21/24 13:11 Leukocyte Esterase (Auto) 0 Cecilia/uL 05/21/24 13:11 Date of Service: 04/21/24 US RETROPERITONEAL LIMITED (RENAL ONLY) CLINICAL INFORMATION: Calculus of kidney. COMPARISON: Ultrasound renal with Doppler 10/17/2023. CT abdomen and pelvis 02/20/2023. Renal ultrasound 09/19/2022. X-ray abdomen KUB 04/01/2019. TECHNIQUE: Real-time imaging of the kidneys. FINDINGS: RIGHT KIDNEY: 10.1 x 3.8 x 4.7 cm (SAG x AP x TRV). The kidney is normal in size, contour, and echogenicity. Renal cortical thickness is normal. No focal parenchymal lesions or hydronephrosis. There are two renal calculi in the lower pole measuring 0.2cm and the upper pole measuring 0.3cm. LEFT KIDNEY: 10.2 x 3.9 x 4.3 cm (SAG x AP x TRV). The kidney is normal in size, contour, and echogenicity. Renal cortical thickness is normal. No focal parenchymal lesions or hydronephrosis. There is a 0.3cm lower pole nonobstructing calculus. IMPRESSION: Bilateral nonobstructing renal calculi. Date of Service: 02/20/23 EXAMINATION: CT ABDOMEN AND PELVIS WITHOUT CONTRAST CLINICAL INFORMATION: Renal calculus. COMPARISON: 09/01/2022 FINDINGS: LUNG BASES: Bronchial amaro are chronically mildly thickened. Mild atelectasis within lung bases. No acute findings in the bases compared to 11/23/2022. Again noted is linear hyperdensity within a left lower lobe pulmonary artery suspected to represent cement embolization from lumbar vertebral augmentation procedure. LIVER: The liver has normal size, shape, and attenuation. No evidence of liver mass. GALLBLADDER AND BILIARY TREE: Gallbladder is without radiopaque stones, wall thickening or pericholecystic fluid. No dilated bile ducts. PANCREAS: Normal. No edema, pancreatic ductal dilatation or mass. SPLEEN: Normal. ADRENAL GLANDS: Normal. KIDNEYS AND URETERS: The kidneys have normal size and cortical thickness. No perinephric edema. No urolithiasis or hydroureteronephrosis. BLADDER: Normal. No calculi or wall thickening. BOWEL AND PERITONEUM: Stomach is unremarkable. No dilated loops of bowel. The appendix is normal. No overt bowel wall thickening or mesenteric fat stranding. No free fluid or pneumoperitoneum. ABDOMINAL WALL: Unremarkable. VASCULATURE: There is atherosclerotic calcification of abdominal aorta and iliac arteries without aneurysm. LYMPH NODES: No pathologic sized lymph nodes in the abdomen or pelvis. No inguinal lymphadenopathy. PELVIC VISCERA: No evidence of uterine or adnexal mass. No pelvic free fluid. MUSCULOSKELETAL: Mild levocurvature of the degenerated lumbar spine and cement augmentation of compression fractures of L2 and L3 vertebra. Mild extrusion of cement through the L2 superior endplate into the central third of the disc space. At L5-S1, there is obtjdenn-pf-eapycv loss of the disc space, vacuum disc phenomenon, endplate sclerosis, disc bulge, vertebral osteophyte formation and moderate facet arthropathy. IMPRESSION: * No CT imaging evidence of urinary tract calculi or hydronephrosis. * Compared to 09/01/2022, there has been interval vertebral cement augmentation of compressed L2 and L3 vertebra Assessment & Plan Assessment & Plan (1) Hypercalciuria: Code(s): R82.994 - Hypercalciuria Category: Medical (2) Nephrolithiasis: Code(s): N20.0 - Calculus of kidney Category: Medical (3) Voiding dysfunction: Code(s): N39.8 - Other specified disorders of urinary system Category: Medical (4) Hyperparathyroidism: Comment: 2 parathyroid glands removed 12/05/2020 Was following with Endocrine at [facility] in 2020 Code(s): E21.3 - Hyperparathyroidism, unspecified Category: Medical (5) Slowing of urinary stream: Code(s): R39.198 - Other difficulties with micturition Category: Medical Plan Cont Monitor Kidneys. Further evaluation with 24 hour urine. OAB - The patient is on Toviaz for urinary symptoms of urge. She states that she sometimes has the urge to go every hour and when she tries to urinate she has to bear down and push to empty the bladder. Will change medication therapy Gemtesa 75 mg daily and Slow urinary stream. Flomax 0.4 mg at night. Orders: Orders AMB Urinalysis Automated Today Z13.9 - Encounter for screening, unspecified Medications: New tamsulosin (Flomax) 0.4 mg PO BEDTIME 30 caps 3RF to help with urination vibegron (Gemtesa) 75 mg PO DAILY 30 tabs 3RF Discontinued fesoterodine ER Discontinued Reason: Doctor's Order 4 mg PO DAILY 30 tabs 5RF N32.81 - Overactive bladder Patient Instructions: The patient had an opportunity to ask questions regarding treatment plan. The patient expressed understanding and agreement with the above treatment plan. The patient is aware they should contact our office by phone for worsening of their current condition or the appearance of new symptoms. Compliance is encouraged with any medications and followup testing that is ordered. It is a privilege to be allowed the opportunity to participate in the urologic care of your patient. If you have any questions or concerns regarding treatment for the above conditions please do not hesitate to contact me. The office telephone contact is [phone]. This note is constructed in part using voice recognition software. While every effort has been made to ensure accuracy museum guide errors may have been included. Yours sincerely, Jt Witt MD Coding Level of Care Code Est Pt Level 4 (53075) Diagnoses Hypercalciuria R82.994 Nephrolithiasis N20.0 Voiding dysfunction N39.8 Hyperparathyroidism E21.3 Slowing of urinary stream R39.198
== END 2024-05-21 13:35 | disposition home or self-care (01) ==
LOC: HO.HUSH 12:53
PROVIDERS: PCP Internal Medicine; Visit Provider Urology
DX: R82.994 Hypercalciuria (principal); N20.0 Calculus of kidney; N39.8 Other specified disorders of urinary system; E21.3 Hyperparathyroidism, unspecified; R39.198 Other difficulties with micturition; Z13.9 Encounter for screening, unspecified
CPT/HCPCS: 99214

== ENCOUNTER → 2024-05-21 12:52 | Outpatient (BNVA) | payer MEDICARE, MEDICAID, SELFPAY | PROVIDERS: PCP Internal Medicine; Visit Provider Urology | DX: N20.0 Calculus of kidney (principal); R82.994 Hypercalciuria; E21.3 Hyperparathyroidism, unspecified; N39.8 Other specified disorders of urinary system; R39.198 Other difficulties with micturition | CPT/HCPCS: 81003; 99212 ==

== ENCOUNTER 2024-05-23 10:00 | Outpatient (REF) | payer MEDICARE, MEDICAID, SELFPAY ==
[2024-05-23 11:15] LABS: Calcium 9.5 mg/dL (8.4-10.2); Magnesium 2.2 mg/dL (1.6-2.6)
[2024-05-23 11:35] LABS: Thyroid Stimulating Hormone 1.63 uIU/mL (0.32-4.0)
== END 2024-05-23 10:01 | disposition home or self-care (01) ==
LOC: HO.LAB 10:00
PROVIDERS: PCP Internal Medicine; Visit Provider Internal Medicine
DX: M06.9 Rheumatoid arthritis, unspecified (principal); M54.50 Low back pain, unspecified; R25.2 Cramp and spasm; R53.83 Other fatigue
CPT/HCPCS: 36415; 82310; 83735; 84443

== ENCOUNTER 2024-05-28 12:22 | Outpatient (AMB) | payer MEDICARE, MEDICAID, SELFPAY ==
--- NOTE | 2024-05-28 12:40 | A.OFFVIS_ITS ---
Vital Signs 05/28/24 12:44 Height 5 ft 3 in Weight 123 lb 7.342 oz BMI 21.9 BP 138/83 Blood Pressure Location Lt brachial Position Sitting Pulse 81 Intake Visit Reasons: follow up Intake Note: Brisa presents in office today in follow up of CIC. CC: Patient c/o acid reflux and heartburn. She states that she would like to increase the Linzess. Digital Media Analyst Required: No Accompanied by: Self / Same As Patient Allergies Penicillins [PENICILLINS] Allergy (Intermediate, Verified 07/09/24 13:32) RASH/HIVES dexamethasone Allergy (Verified 07/09/24 13:32) Eye Swelling adalimumab [From Humira] Adverse Reaction (Intermediate, Verified 07/09/24 13:32) Chest Pain HPI HPI follow up: Details: Assessment & Plan (1) GERD (gastroesophageal reflux disease): Code(s): K21.9 - Gastro-esophageal reflux disease without esophagitis (2) Chronic idiopathic constipation: Code(s): K59.04 - Chronic idiopathic constipation (3) Proctalgia fugax: Code(s): K59.4 - Anal spasm Plan She is on bid Aciphex, famotidine for breakthrough, but educated to us prn since she has osteoporosis. She continues on her Linzess, dicyclomine, simethicone with good control of her bowels.. She also has bisacodyl for p.r.n. use for her constipation. She also uses Proctosol cream when she has hemorrhoidal complications with good results. Her uncle a few weeks ago from stomach ca. She had a very upset stomach from drinking the HP prep and from holding her aciphex for 2 weeks (Dr. Braga ordered). She was also given carafate but this did not help at all. Her stomach has settled after restarting her rabeprazole. For now she is satisfied with her GI regimen and agreeable to a 6 month follow- up. Medications: Refilled dicyclomine 20 mg PO QID 120 tabs 2RF simethicone 180 mg PO QID 120 caps 2RF R14.0 - Abdominal distension (gaseous) bisacodyl 10 mg (2 x 5 mg) PO BEDTIME 60 tabs 6RF K59.04 - Chronic idiopathic constipation linaclotide (Linzess) 290 mcg PO DAILY 30 caps 6RF K59.04 - Chronic idiopathic constipation Discontinued sucralfate (Carafate) swish in mouth and swallow; use after food/drink Discontinued Reason: Doctor's Order 10 mL PO QID 1,000 mL 0RF CORRESPONDENCE On 05/10/23 @ 09:14 Beatriz Shipman Wrote To Sarika noted, i will add an alert for july to reach out to patient to reschedule then, will need the clearance in place first Beatriz Shipman removed from item. On 05/10/23 @ 09:03 Jelly Brar Wrote To Beatriz Shipman (2) yes notified OR- will need to be R/S sometime in July. On 05/10/23 @ 08:53 Beatriz Shipman Wrote To Sarika (2) is this being canceld again? On 05/10/23 @ 08:45 Jelly Brar Wrote To Sarika (2) Sorry procedure is 06/06, not 05/27. On 05/10/23 @ 08:43 Jelly Brar Wrote To Sarika (2) Looks like she did not have her echo/ stress test on 05/07, she is rescheduled for 07/19. Her EGD/[place] is 05/27 with F/U appt on 06/20- October would you like me to cancel this appt? I will call her to cancel, and notify OR. On 04/09/23 @ 15:48 Jelly Brar Wrote To Jelly Brar noted On 04/09/23 @ 15:35 Wendy Baum Wrote To Jelly Brar I say have her PCP tell us when it is okay to proceed before rescheduling. On 04/09/23 @ 11:23 Jelly Brar Wrote To Sarika spoke with patient regarding upper endoscopy/ colonoscopy on 04/12 that she will need to R/S and have cardiology workup first. Patient reported her PCP wanted her to put her procedures on hold also since she was having S/E from [facility] - currently off this. Patients upper/ colo R/S for 05/27. On 04/09/23 @ 10:57 Jelly Brar Wrote To SarikaOctober Hi October, * see notes below. Looks like Brisa's upper Endo and colo will have to be R/S. Do you need to put in cardiac pre op exam? not sure how that works. On 04/09/23 @ 10:28 Annamarie Milan Wrote To Jelly Brar Trip [place], Looks like Dr Sahni wants her to have an echo and a stress due to complaints of chest pain. We should have those results before proceeding with GI procedures. Thanks. On 04/09/23 @ 09:38 Jelly Brar Wrote To Annamarie Milan Hi Annamarie, looking ahead, Brisa was seen by cardiology (Dr. Sahni) on 03/27 for chest pain and SOB having this since she underwent Vertebroplasty in september and small amt of cement went into left P.A. She has f/u in cardiology 05/13, looks like she is having an echo. Should I message cardiology if the procedure should be postponed until further w/u? thoughts? TY TODAY'S VISIT She is on bid Aciphex, famotidine, Linzess, dicyclomine, simethicone and Proctosol cream. The Linzess at 145 micro g is no longer moving her bowels well so will increase it to 290 micro g and add bisacodyl. Otherwise she feels her symptoms are well controlled. She is agreeable to six-month follow-up and will call for sooner appointment if this does not work. [facility] Medical History (Updated 07/28/24 @ 13:07 by Pito Sahni MD) Chest pain Atypical chest pain Bronchitis Hx of nephrolithotomy with removal of calculi Swelling of finger joint of right hand Swelling of finger joint of left hand Hypocalcemia Coronary artery calcification seen on CAT scan Dyspnea Pulmonary nodules COPD (chronic obstructive pulmonary disease) Pulmonary emboli Urinary urgency Hx of hemorrhoids Seropositive rheumatoid arthritis Surgical History Hx of tubal ligation Hx of hand surgery Hx of parathyroidectomy Hx of kyphoplasty History of back surgery History of esophagogastroduodenoscopy (EGD) Hx of colonoscopy Family History Father Cancer Mother Colon cancer HTN (hypertension) Diabetes Breast cancer Brother Lupus HTN (hypertension) Kidney transplanted Sister HTN (hypertension) Cancer Liver transplanted Other FH: cancer FH: mental illness Social History Household Members: None Housing: House Alcohol intake: former Patient Tobacco Use Status: Current everyday Tobacco user Tobacco use type: Cigarette Cigarettes Per Day: 4 Years Smoked: 43 Review of Systems Const Denies fatigue, Denies fever(s), Denies night sweats, Denies poor appetite and Denies weight loss ENT Reports Normal hearing present, Denies dental pain, Denies dysphagia, Denies hearing loss, Denies mouth pain, Denies odynophagia, Denies throat swelling, Denies tongue swelling and Reports other (Dentition adequate) Card Reports no additional complaints Resp Reports no additional complaints GI Details: Denies abdominal pain, Denies melena, Reports bloating, Denies hematochezia, Reports constipation, Reports GI cramping, Denies dysphagia, Denies excessive flatus, Denies early satiety, Reports heartburn, Denies diarrhea, Denies nausea, Denies odynophagia, Denies vomiting and Denies hematemesis Skin/Breast Denies pruritus, Denies lesions, Denies rash and Denies jaundice Neuro Reports Normal hearing present and Denies Abnormal speech present Endo Denies fatigue Aller/Immun Denies throat swelling and Denies tongue swelling Physical Exam Vital Signs: Last Vital Signs Pulse 81 05/28/24 12:44 BP 138/83 05/28/24 12:44 BMI result Body Mass Index 21.9 Const General: cooperative, no acute distress, well developed and well groomed Nutritional Appearance: average body habitus and well nourished Orientation/consciousness: oriented to person, oriented to place and oriented to time Limitations: No language barrier and ambulation with cane HEENT Head: Yes normocephalic and Yes atraumatic Eyes General: appearance normal, both eyes and all related structures Pupils: Equal, round and reactive pupils present Neck Neck: Yes normal visual inspection and Yes no lymphadenopathy Thyroid: Thyroid normal Resp Effort & Inspection: normal respiratory effort and able to speak in complete sentences Auscultation: clear to auscultation bilaterally Cardio Rate: regular rate Rhythm: regular rhythm Heart sounds: Normal, physiologic split S2 sound present Peripheral pulses: radial pulses present and posterior tibial pulses present GI Inspection: No distended and No Abdominal panniculus present Palpation (GI): Soft to palpation, nontender, no guarding, not rigid and No hepatosplenomegaly present Percussion: Yes normal to percussion Auscultation: normal bowel sounds Rectal Exam - Female: deferred Skin General skin exam: no rashes or lesions noted, turgor normal, skin not dry, no jaundice, No spider nevi and no striae Rashes: no rashes Nails: normal Neuro General: oriented to person, oriented to place and oriented to time Cranial nerves: Yes Equal, round and reactive pupils present and Yes Normal hearing present Speech: No Abnormal speech present Extrem General: Yes normal to inspection, No clubbing, No cyanosis and No edema Psych Appearance: grossly normal and well kempt Mental Status: mental status grossly normal Speech and movement: Normal speech and movement present Affect: normal affect Attitude: cooperative Thought process: Normal thought process present and not confabulating Thought content: Normal thought content present Insight: Fair insight present (Psych) Judgement: Fair judgement present (Psych) Assessment & Plan Assessment & Plan (1) Chronic idiopathic constipation: Code(s): K59.04 - Chronic idiopathic constipation Category: Medical (2) GERD (gastroesophageal reflux disease): Code(s): K21.9 - Gastro-esophageal reflux disease without esophagitis Category: Medical (3) Proctalgia fugax: Code(s): K59.4 - Anal spasm Category: Medical Plan She is on bid Aciphex, famotidine, Linzess, dicyclomine, simethicone and Proctosol cream. The Linzess at 145 micro g is no longer moving her bowels well so will increase it to 290 micro g and add bisacodyl. Otherwise she feels her symptoms are well controlled. She is agreeable to six-month follow-up and will call for sooner appointment if this does not work. Medications: New linaclotide (Linzess) 290 mcg PO QAM 30 caps 6RF 30 days K59.04 - Chronic idiopathic constipation simethicone after meals 180 mg PO QID 120 caps 3RF 30 days Changed From udwmez-jdqbmfyb-tymlpis 24,000-76,000 -120,000 unit 2 caps PO BID 30 days 120 caps 6RF K58.9 - Irritable bowel syndrome, unspecified To yjvxas-vbdsfybh-dnkpnjq 24,000-76,000 -120,000 unit (Creon) 2 caps PO BID 120 caps 6RF 30 days K58.9 - Irritable bowel syndrome, unspecified Refilled bisacodyl 10 mg (2 x 5 mg) PO BEDTIME 60 tabs 6RF K59.04 - Chronic idiopathic constipation rabeprazole 20 mg PO BID 60 tabs 6RF dicyclomine 20 mg PO QID 120 tabs 0RF Discontinued linaclotide Discontinued Reason: Doctor's Order 145 mcg PO QAM 30 caps 6RF K59.04 - Chronic idiopathic constipation Resumed bisacodyl 10 mg (2 x 5 mg) PO BEDTIME 60 tabs 0RF K59.04 - Chronic idiopathic constipation bisacodyl 10 mg (2 x 5 mg) PO BEDTIME 60 tabs 6RF K59.04 - Chronic idiopathic constipation Coding Level of Care Code Est Pt Level 3 (62033) Diagnoses Chronic idiopathic constipation K59.04 GERD (gastroesophageal reflux disease) K21.9 Proctalgia fugax K59.4
[2024-05-28 12:44] VITALS: BP 138/83; PULSE 81; BMI 21.9
== END 2024-05-28 13:37 | disposition home or self-care (01) ==
LOC: HO.HGI 12:22
PROVIDERS: PCP Internal Medicine; Visit Provider Nurse Practitioner
DX: K59.04 Chronic idiopathic constipation (principal); K21.9 Gastro-esophageal reflux disease without esophagitis; K59.4 Anal spasm
CPT/HCPCS: 99213

== ENCOUNTER → 2024-05-28 12:22 | Outpatient (BNVA) | payer MEDICARE, MEDICAID, SELFPAY | PROVIDERS: PCP Internal Medicine; Visit Provider Nurse Practitioner | DX: K59.04 Chronic idiopathic constipation (principal); K21.9 Gastro-esophageal reflux disease without esophagitis; K59.4 Anal spasm; K58.1 Irritable bowel syndrome with constipation; R14.0 Abdominal distension (gaseous); Z79.899 Other long term (current) drug therapy | CPT/HCPCS: 99212 ==

== ENCOUNTER 2024-06-04 13:53 | Outpatient (AMB) | payer MEDICARE, MEDICAID, SELFPAY ==
--- NOTE | 2024-06-04 14:51 | AM.OFFVISNUR ---
Intake Visit Reasons: evenity #3 Allergies Penicillins [PENICILLINS] Allergy (Intermediate, Verified 05/28/24 12:47) RASH/HIVES dexamethasone Allergy (Verified 05/28/24 12:47) Eye Swelling adalimumab [From Humira] Adverse Reaction (Intermediate, Verified 05/28/24 12:47) Chest Pain Office Meds romosozumab-aqqg 210 mg/2.34 mL(105 mg/1.17 mL x2)subcutaneous syringe Performing Provider: Roddy Queen MD Performing Location: [facility] [place] Endocrinology Administered by: Beatriz García RN on 06/04/24 14:51 Dose Route Admin Location Dispensed Lot Number Expiration Date NDC Fish Technologist 210 mg subcut bilateral upper arms 2.34 mL [id number] 04/20/26 13197-506-79 AMGEN Comments: Pt signed consent form. Pt tolerated injection well. Pt denies any problems with previous injections. Pt is seeing Dr. Queen on 06/16 Assessment & Plan Assessment & Plan Orders: Orders AMB Romosozumab Injection Patient Supplied Today M80.00XD - Age-related osteoporosis with current pathological fracture, unspecified site, subsequent encounter for fracture with routine healing Medications: New romosozumab-aqqg 210 mg (2.34 mL) subcut ONCE 2.34 mL 0RF M80.00XD - Age-related osteoporosis with current pathological fracture, unspecified site, subsequent encounter for fracture with routine healing
== END 2024-06-04 14:50 | disposition home or self-care (01) ==
PROVIDERS: PCP Internal Medicine
DX: M80.00XD Age-related osteoporosis with current pathological fracture, unspecified site, subsequent encounter for fracture with routine healing (principal)

== ENCOUNTER → 2024-06-04 13:53 | Outpatient (BNVA) | payer MEDICARE, MEDICAID, SELFPAY | PROVIDERS: PCP Internal Medicine | DX: M80.00XD Age-related osteoporosis with current pathological fracture, unspecified site, subsequent encounter for fracture with routine healing (principal) | CPT/HCPCS: 96372; J3111 ==

== ENCOUNTER 2024-06-11 12:37 | Outpatient (AMB) | payer MEDICARE, MEDICAID, SELFPAY ==
--- NOTE | 2024-06-11 12:38 | A.OFFVIS_ITS ---
Vital Signs 06/11/24 12:45 Height 5 ft 3 in Weight 125 lb 0.034 oz BMI 22.1 BP 138/80 Blood Pressure Location Lt brachial Position Sitting Pulse 80 Pulse Source Pulse Oximeter Pulse Oximetry (%) 97 Oxygen Delivery Method Room Air Intake Visit Reasons: RA/CM Intake Note: Patient presents for RA. Allergies Penicillins [PENICILLINS] Allergy (Intermediate, Verified 06/11/24 12:44) RASH/HIVES dexamethasone Allergy (Verified 06/11/24 12:44) Eye Swelling adalimumab [From Humira] Adverse Reaction (Intermediate, Verified 06/11/24 12:44) Chest Pain Medication List - Last Reconciled 06/11/24 by Freddy Burden MD albuterol sulfate mg inhalation albuterol sulfate 90 mcg/actuation 2 inhalations inhalation QID atorvastatin 40 mg PO DAILY 90 days azithromycin 250 mg PO 3XW 28 days bisacodyl 10 mg (2 x 5 mg) PO BEDTIME zxvnzxghcq-iecfridp-anjzwvwklk 160-9-4.8 mcg/actuation (Breztri Aerosphere) 2 inhalations inhalation BID buspirone 15 mg PO BID cetirizine 10 mg PO DAILY cholecalciferol (vitamin D3) 50 mcg PO DAILY diclofenac sodium 1% 1 - 2 grams topical BID dicyclomine 20 mg PO QID fluticasone propionate 50 mcg/actuation sprays intranasal folic acid 1 mg PO DAILY hydrocortisone 2.5% (Procto-Med HC) 1 appl CA BID PRN lidocaine 5% 2 patches topical DAILY linaclotide (Linzess) 290 mcg PO QAM 30 days gopeqf-krnylobo-kxwkkzx 24,000-76,000 -120,000 unit (Creon) 2 caps PO BID 30 days lorazepam 1 mg PO BID PRN lurasidone 20 mg PO DAILY methotrexate sodium 20.8 mg (8.32 x 2.5 mg) PO QWEEK metoprolol succinate ER 100 mg PO DAILY mometasone-formoterol 200-5 mcg/actuation (Dulera) 2 puffs inhalation Q12H 30 days montelukast 10 mg PO DAILY naloxone 4 mg/actuation 0 sprays intranasal nebulizer and compressor (Vios Aerosol Delivery System) As directed nicotine (polacrilex) (Nicorette) 4 mg buccal Q4H PRN nifedipine ER 120 mg (2 x 60 mg) PO DAILY 90 days nortriptyline 10 mg PO BEDTIME oxycodone 10 mg PO Q6H PRN oxycodone mg PO oxycodone ER (OxyContin) 30 mg PO BID polyethylene glycol 3350 17 grams PO DAILY prednisolone acetate 1% drps ophthalmic (eye) prednisolone sodium phosphate mg PO prednisolone sodium phosphate mg PO pregabalin 300 mg PO BID rabeprazole 20 mg PO BID roflumilast (Daliresp) 500 mcg PO DAILY 30 days romosozumab-aqqg (Evenity) 210 mg (2.34 mL) subcut .qmonthly simethicone 180 mg PO QID 30 days tamsulosin (Flomax) 0.4 mg PO BEDTIME tizanidine 6 mg PO BEDTIME PRN triamcinolone acetonide (Nasacort) 1 spray intranasal DAILY valacyclovir 1,000 mg PO DAILY valsartan-hydrochlorothiazide 320-25 mg 1 tab PO DAILY vibegron (Gemtesa) 75 mg PO DAILY zolpidem 10 mg PO BEDTIME HPI Comments Details: This is a 59-year-old female with seropositive RA who presents for follow-up. She states that she has not been doing well recently. She continues to have pain and swelling of her fingers. Symptoms are more severe in the morning. Particularly of her right 3rd PIP, right 3rd DIP and right 2nd DIP. She also Has pain and swelling of her toes. She stated that prednisone is only helpful for her joint pains when the dose is above 20 mg a day. 2.5 mg a day was not helpful. She has been having worsening burning pain on the outer aspect of her legs. She states that she was on pregabalin and gabapentin in the past. Gabapentin was discontinued. She has an appointment next week with her neurologist [facility] Medical History Bronchitis Hx of nephrolithotomy with removal of calculi Swelling of finger joint of right hand Swelling of finger joint of left hand Hypocalcemia Coronary artery calcification seen on CAT scan Dyspnea Pulmonary nodules COPD (chronic obstructive pulmonary disease) Chest pain Pulmonary emboli Urinary urgency Hx of hemorrhoids Seropositive rheumatoid arthritis Surgical History Hx of tubal ligation Hx of hand surgery Hx of parathyroidectomy Hx of kyphoplasty History of back surgery History of esophagogastroduodenoscopy (EGD) Hx of colonoscopy Family History Father Cancer Mother Colon cancer HTN (hypertension) Diabetes Breast cancer Brother Lupus HTN (hypertension) Kidney transplanted Sister HTN (hypertension) Cancer Liver transplanted Other FH: cancer FH: mental illness Social History Household Members: None Housing: House Alcohol intake: former Patient Tobacco Use Status: Current everyday Tobacco user Tobacco use type: Cigarette Cigarettes Per Day: 5 Years Smoked: 42 Female Reproductive History Menstrual Total pregnancies: 3 Number of Living Children: 3 Review of Systems Musc Reports arthralgias, Reports joint swelling and Reports stiffness Physical Exam Vital Signs: Last Vital Signs Pulse 80 06/11/24 12:45 BP 138/80 06/11/24 12:45 Pulse Ox 97 06/11/24 12:45 Oxygen Delivery Method Room Air 06/11/24 12:45 BMI result Body Mass Index 22.1 Const General: cooperative, healthy appearing and comfortable Nutritional Appearance: average body habitus Orientation/consciousness: patient oriented x3 Limitations: ambulation with cane HEENT Head: Yes normocephalic and Yes atraumatic Mouth: moist mucous membranes Resp Effort & Inspection: normal respiratory effort and able to speak in complete sentences Auscultation: clear to auscultation bilaterally Cardio Rate: regular rate Rhythm: regular rhythm Skin General skin exam: no rashes or lesions noted Neuro General: patient oriented x3 Extrem Other: Prominent Heberden's and Antione's nodes bilaterally Subtle Right 3rd PIP swelling and tenderness Right 2nd DIP swelling and tenderness Right 4th and 5th fingers nailfold capillaroscopy shows few dilated loops Proximal muscle strength 5/5 all 4 extremities Assessment & Plan Assessment & Plan (1) Seropositive rheumatoid arthritis: Comment: +RF+CCP dx 2017 Methotrexate: prior to 2018- October 2021 effective per patient Leflunomide: October 2022 DC 12/2023 not effective Hum2023 DC 12/2023 ineffective MTX restarted 12/2023 Code(s): M05.9 - Rheumatoid arthritis with rheumatoid factor, unspecified Category: Medical Plan: This is a 59-year-old female with seropositive RA who presents for follow-up. She remains on methotrexate 20 mg weekly plus folic acid 1 mg daily. She continues to complain of swelling and stiffness of her fingers. On exam however her symptoms are rather consistent with hand osteoarthritis. 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 Brother with lupus. Few dilated loops on nailfold capillaroscopy. History suggestive of Raynaud's. Mild interstitial changes on CT chest. Mild esophageal dysmotility on barium swallow. Comprehensive serologies showed mildly positive anti Scl 70 antibody as well as positive PL 7 antibody. On exam there is no skin thickening, no muscle weakness on exam. Continue to monitor patient for the development of overlap with another autoimmune rheumatic disease (4) Osteoarthritis of hands, bilateral: Code(s): M19.041 - Primary osteoarthritis, right hand; M19.042 - Primary osteoarthritis, left hand Category: Medical Qualifiers: Osteoarthritis type: primary Qualified Code(s): M19.041 - Primary osteoarthritis, right hand; M19.042 - Primary osteoarthritis, left hand Plan: Did not respond to Tylenol, Celebrex, naproxen, low doses of prednisone. I suggested re-evaluation by hand surgeon and consideration of cortisone injection. Patient is not interested. She is also not interested in going back to hand therapy. I suggested buying a paraffin wax machine. (5) Osteoporosis: Comment: History of hyper parathyroidism and fragility fractures Code(s): M81.0 - Age-related osteoporosis without current pathological fracture Category: Medical Qualifiers: Osteoporosis type: age-related Presence of current pathological fracture: with current pathological fracture Encounter type: subsequent encounter Fracture healing: with routine healing Qualified Code(s): M80.00XD - Age-related osteoporosis with current pathological fracture, unspecified site, subsequent encounter for fracture with routine healing Plan: Follows up with Dr. Queen. Recently restarted Evenity (6) Peripheral neuropathy: Code(s): G62.9 - Polyneuropathy, unspecified Category: Medical Qualifiers: Peripheral neuropathy type: idiopathic neuropathy, unspecified Qualified Code(s): G60.9 - Hereditary and idiopathic neuropathy, unspecified Plan: Slightly worsening symptoms. In the past patient was on gabapentin and Lyrica together. Patient has a follow-up appointment with neurologist next week Plan I spent 27 minutes reviewing patient's chart, looking at old EMR chart, evaluating patient, ordering diagnostic workup, counseling patient and documenting in the chart Orders: Orders Comprehensive Met. Panel 4 Months M05.9 - Rheumatoid arthritis with rheumatoid factor, unspecified Erythrocyte Sedimentation Rate 4 Months M05.9 - Rheumatoid arthritis with rheumatoid factor, unspecified Complement C4 4 Months M32.9 - Systemic lupus erythematosus, unspecified Complement C3 4 Months M32.9 - Systemic lupus erythematosus, unspecified Complete Blood Count Auto Diff 4 Months M05.9 - Rheumatoid arthritis with rheumatoid factor, unspecified C Reactive Protein 4 Months M05.9 - Rheumatoid arthritis with rheumatoid factor, unspecified Coding Level of Care Code Est Pt Level 4 (71088) Complex EM visit Add On G2211 Diagnoses Seropositive rheumatoid arthritis M05.9 residential methotrexate user Z79.899 RENETTA positive R76.8 Primary osteoarthritis of both hands M19.041; M19.042 Osteoarthritis type: primary Age-related osteoporosis with current pathological fracture with routine healing, subsequent encounter M80.00XD Osteoporosis type: age-related Presence of current pathological fracture: with current pathological fracture Encounter type: subsequent encounter Fracture healing: with routine healing Idiopathic peripheral neuropathy G60.9 Peripheral neuropathy type: idiopathic neuropathy, unspecified
[2024-06-11 12:45] VITALS: BP 138/80; PULSE 80; O2SAT 97; BMI 22.1
== END 2024-06-11 14:17 | disposition home or self-care (01) ==
PROVIDERS: PCP Internal Medicine; Visit Provider Student in an Organized Health Care Education/Training Program
DX: M05.79 Rheumatoid arthritis with rheumatoid factor of multiple sites without organ or systems involvement (principal); Z79.899 Other long term (current) drug therapy; R76.8 Other specified abnormal immunological findings in serum; M19.041 Primary osteoarthritis, right hand; M19.042 Primary osteoarthritis, left hand; M80.00XD Age-related osteoporosis with current pathological fracture, unspecified site, subsequent encounter for fracture with routine healing; G60.9 Hereditary and idiopathic neuropathy, unspecified
CPT/HCPCS: 99214; G2211

== ENCOUNTER → 2024-06-11 12:37 | Outpatient (BNVA) | payer MEDICARE, MEDICAID, SELFPAY | PROVIDERS: PCP Internal Medicine; Visit Provider Student in an Organized Health Care Education/Training Program | DX: M05.9 Rheumatoid arthritis with rheumatoid factor, unspecified (principal); M19.041 Primary osteoarthritis, right hand; M19.042 Primary osteoarthritis, left hand; M80.00XD Age-related osteoporosis with current pathological fracture, unspecified site, subsequent encounter for fracture with routine healing; R76.8 Other specified abnormal immunological findings in serum; G60.9 Hereditary and idiopathic neuropathy, unspecified; Z79.899 Other long term (current) drug therapy | CPT/HCPCS: 99212 ==

== ENCOUNTER 2024-06-16 13:55 | Outpatient (AMB) | payer MEDICARE, MEDICAID, SELFPAY ==
--- NOTE | 2024-06-16 14:18 | MHC.OFFVIS ---
Vital Signs 06/16/24 14:22 Height 5 ft 3 in Weight 130 lb 11.746 oz BMI 23.2 BP 118/62 Blood Pressure Location Rt brachial Position Sitting Pulse 72 Pulse Source Pulse Oximeter Intake Visit Reasons: f/u osteoporosis-lvm Intake Note: Patient present today for Osteoporosis follow up visit. Md Senior Research Scientist Required: No Accompanied by: Self / Same As Patient Allergies Penicillins [PENICILLINS] Allergy (Intermediate, Verified 06/16/24 14:27) RASH/HIVES dexamethasone Allergy (Verified 06/16/24 14:27) Eye Swelling adalimumab [From Humira] Adverse Reaction (Intermediate, Verified 06/16/24 14:27) Chest Pain Medication List - Last Reconciled 06/16/24 by Roddy Queen MD albuterol sulfate mg inhalation albuterol sulfate 90 mcg/actuation 2 inhalations inhalation QID atorvastatin 40 mg PO DAILY 90 days azithromycin 250 mg PO 3XW 28 days bisacodyl 10 mg (2 x 5 mg) PO BEDTIME viyhwpxfkl-twgagnfa-nnjaazhaqo 160-9-4.8 mcg/actuation (Breztri Aerosphere) 2 inhalations inhalation BID buspirone 15 mg PO BID cetirizine 10 mg PO DAILY cholecalciferol (vitamin D3) 50 mcg PO DAILY diclofenac sodium 1% 1 - 2 grams topical BID dicyclomine 20 mg PO QID fluticasone propionate 50 mcg/actuation sprays intranasal folic acid 1 mg PO DAILY hydrocortisone 2.5% (Procto-Med HC) 1 appl [place] BID PRN lidocaine 5% 2 patches topical DAILY linaclotide (Linzess) 290 mcg PO QAM 30 days jtlzlu-pmerqpae-oueuwsb 24,000-76,000 -120,000 unit (Creon) 2 caps PO BID 30 days lorazepam 1 mg PO BID PRN lurasidone 20 mg PO DAILY methotrexate sodium 20.8 mg (8.32 x 2.5 mg) PO QWEEK metoprolol succinate ER 100 mg PO DAILY mometasone-formoterol 200-5 mcg/actuation (Dulera) 2 puffs inhalation Q12H 30 days montelukast 10 mg PO DAILY naloxone 4 mg/actuation 0 sprays intranasal nebulizer and compressor ([employer] Aerosol Delivery System) As directed nicotine (polacrilex) (Nicorette) 4 mg buccal Q4H PRN nifedipine ER 120 mg (2 x 60 mg) PO DAILY 90 days nortriptyline 10 mg PO BEDTIME oxycodone 10 mg PO Q6H PRN oxycodone mg PO oxycodone ER (OxyContin) 30 mg PO BID polyethylene glycol 3350 17 grams PO DAILY prednisolone acetate 1% drps ophthalmic (eye) prednisolone sodium phosphate mg PO prednisolone sodium phosphate mg PO pregabalin 300 mg PO BID rabeprazole 20 mg PO BID roflumilast (Daliresp) 500 mcg PO DAILY 30 days romosozumab-aqqg (Evenity) 210 mg (2.34 mL) subcut .qmonthly simethicone 180 mg PO QID 30 days tamsulosin (Flomax) 0.4 mg PO BEDTIME tizanidine 6 mg PO BEDTIME PRN triamcinolone acetonide (Nasacort) 1 spray intranasal DAILY valacyclovir 1,000 mg PO DAILY valsartan-hydrochlorothiazide 320-25 mg 1 tab PO DAILY vibegron (Gemtesa) 75 mg PO DAILY zolpidem 10 mg PO BEDTIME HPI Comments Details: 59 YO Female with PMHx hyperparathyroidism status post parathyroid surgery 12/05/20 is seen in consultation at the request of PCP for Osteoporosis. She has previous seen a [facility] diagnosed in few yrs ago . Never Received treatment in the past except for alendronate on 11/13/22. history of pathologic fracture fragility fractures requiring kyphoplasty 10/08/2022. Has few servings of dietary calcium per day Not Takes Calcium supplement Not Takes IU of Vitamin D daily. takes PPI, anticoagulant, antiepileptic not taking glucocorticoid medication. 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 Has dentures No planned upcoming dental work or extractions. Does smoke DXA dated 09/28/21 : EXAMINATION: BONE DENSITOMETRY CLINICAL INDICATION: Postmenopausal. COMPARISON: Baseline BD dated 02/04/2018. TECHNIQUE: Using a [employer]Point DXA System (software version: 13.1) manufactured by [employer], dual-energy x-ray absorptiometry was performed of the lumbar spine and left hip. The images are of good technical quality. Summary results are attached. FINDINGS: AP SPINE L1-L4: Current: BMD 0.894 g/cm2, Z-score -1.3, T-score -2.4, osteopenia, 5.9% decrease from baseline (<5% change is not significant). Baseline: BMD 0.950 g/cm2. LEFT FEMUR, NECK: Current: BMD 0.670 g/cm2, Z-score -1.5, T-score -2.6, osteoporosis. Baseline: BMD 0.777 g/cm2. LEFT FEMUR, TOTAL: Current: BMD 0.704 g/cm2, Z-score -1.6, T-score -2.4, osteopenia, 11.7% decrease from baseline (<5% change is not significant). Baseline: BMD 0.797 g/cm2. IDENTIFIED RISK FACTORS: Rheumatoid arthritis, tobacco use (current smoker), height loss, glucocorticoids (chronic), menopause. HISTORY OF FRACTURE: None listed. MEDICATIONS: Calcium supplements or multivitamin, vitamin D. MM/XR DEXA axial skeleton IMPRESSION: 1. DIAGNOSIS: Osteoporosis based on the lowest T-score value of -2.6 in the femoral neck applying World Health Organization criteria.? ? Labs: Took Evenity 2 doses with rash in mouth, chest pain , rash and difficulty breathing - SOB remains after stopping . Reinitiated on steroids by Rheumatology. Jagjit are swollen and numbness and tingling in hands , hip and joint pain. PFSH Medical History Bronchitis Hx of nephrolithotomy with removal of calculi Swelling of finger joint of right hand Swelling of finger joint of left hand Hypocalcemia Coronary artery calcification seen on CAT scan Dyspnea Pulmonary nodules COPD (chronic obstructive pulmonary disease) Chest pain Pulmonary emboli Urinary urgency Hx of hemorrhoids Seropositive rheumatoid arthritis Surgical History Hx of tubal ligation Hx of hand surgery Hx of parathyroidectomy Hx of kyphoplasty History of back surgery History of esophagogastroduodenoscopy (EGD) Hx of colonoscopy Family History Father Cancer Mother Colon cancer HTN (hypertension) Diabetes Breast cancer Brother Lupus HTN (hypertension) Kidney transplanted Sister HTN (hypertension) Cancer Liver transplanted Other FH: cancer FH: mental illness Social History Household Members: None Housing: House Alcohol intake: former Patient Tobacco Use Status: Current everyday Tobacco user Tobacco use type: Cigarette Cigarettes Per Day: 5 Years Smoked: 43 Assessment & Plan Assessment & Plan (1) Osteoporosis: Comment: History of hyper parathyroidism and fragility fractures Code(s): M81.0 - Age-related osteoporosis without current pathological fracture Category: Medical Qualifiers: Encounter type: subsequent encounter Fracture healing: with routine healing Osteoporosis type: age-related Presence of current pathological fracture: with current pathological fracture Qualified Code(s): M80.00XD - Age-related osteoporosis with current pathological fracture, unspecified site, subsequent encounter for fracture with routine healing Plan: This is a [id number] female with a history of primary hyperparathyroidism status post parathyroidectomy with normalization of calcium and PTH with recent vertebral of fragility fracture and kyphoplasty. Secondary workup was negative . She is currently on Evenity for 3 mos duration Plan is to delay the next injection of Evenity for 3 weeks. If patient's symptoms of side, may introduce another dose of Evenity to see if they correlate. If symptoms correlate with the Evenity could switch to another anabolic like Tymlos at that point Coding Level of Care Code Est Pt Level 3 (01619) Diagnoses Age-related osteoporosis with current pathological fracture with routine healing, subsequent encounter M80.00XD Encounter type: subsequent encounter Fracture healing: with routine healing Osteoporosis type: age-related Presence of current pathological fracture: with current pathological fracture
[2024-06-16 14:22] VITALS: BP 118/62; PULSE 72; BMI 23.2
== END 2024-06-16 14:56 | disposition home or self-care (01) ==
PROVIDERS: PCP Internal Medicine; Visit Provider Internal Medicine Endocrinology, Diabetes & Metabolism
DX: M80.00XD Age-related osteoporosis with current pathological fracture, unspecified site, subsequent encounter for fracture with routine healing (principal)
CPT/HCPCS: 99213

== ENCOUNTER → 2024-06-16 13:55 | Outpatient (BNVA) | payer MEDICARE, MEDICAID, SELFPAY | PROVIDERS: PCP Internal Medicine; Visit Provider Internal Medicine Endocrinology, Diabetes & Metabolism | DX: M80.00XD Age-related osteoporosis with current pathological fracture, unspecified site, subsequent encounter for fracture with routine healing (principal); X58.XXXD Exposure to other specified factors, subsequent encounter | CPT/HCPCS: 99212 ==

== ENCOUNTER 2024-07-09 13:22 | Outpatient (AMB) | payer MEDICARE, MEDICAID, SELFPAY ==
[2024-07-09 13:27] VITALS: BP 132/74; PULSE 79; O2SAT 98; BMI 22.6
--- NOTE | 2024-07-09 13:27 | MHC.OFFVIS ---
Vital Signs 07/09/24 13:27 Height 5 ft 3 in Weight 127 lb 13.89 oz BMI 22.6 BP 132/74 Blood Pressure Location Rt brachial Position Sitting Pulse 79 Pulse Source Pulse Oximeter Pulse Oximetry (%) 98 Oxygen Delivery Method Room Air Intake Visit Reasons: COPD Allergies Penicillins [PENICILLINS] Allergy (Intermediate, Verified 07/09/24 13:32) RASH/HIVES dexamethasone Allergy (Verified 07/09/24 13:32) Eye Swelling adalimumab [From Humira] Adverse Reaction (Intermediate, Verified 07/09/24 13:32) Chest Pain HPI Comments Details: The patient is a 59 year woman with known history of tobacco dependency who apparently underwent a kyphoplasty for compression fractures back in September 2022. After the procedure the patient developed significant shortness of breath and chest discomfort. She did undergo a CTA at [facility] which I personally reviewed demonstrating a left pulmonary cement emboli. The patient was treated initially was her outcome for about a month. Then she was taking off. She has noticed increasing shortness of breath with minimal activity moderate severity. Also developing chest discomfort. She continues to smoke cigarettes. We did talk about the importance of her quitting. We did talk about the findings on the CT scan also demonstrating pulmonary nodules that need close follow-up. And a brief walking oximetry the patient maintain a pulse ox of 98% which is reassuring and the heart rate was stable. Will plan to get blood works including a D-dimer at this time. If the D-dimer is elevated will go ahead and request a CTA to rule out thromboembolic disease. We know that that cement can be thrombogenic and can increase the risk of clotting. 01/24/2023 the patient is here for pulmonary follow-up visit. Overall the patient has been doing well. She is working on quitting smoking altogether. She is using the patch. The patient still having some dyspnea on exertion mild in severity. Overall doing better. She did have blood work during the last visit and she did have an elevated D-dimer therefore she underwent a CTA. She still had the area of residual cement within the pulmonary vasculature on the left hemithorax but otherwise no evidence of any thromboembolic disease. The patient's ground-glass opacities have subsided the patient also has pulmonary nodules some of them have improved as well. She will need some degree follow-up for the pulmonary nodule specially with high risk with her smoking history. She also has significant coronary artery disease that is described as moderately severe calcifications of the coronary arteries. Patient does have dyspnea on exertion and has complained of some chest pressure at times. Therefore I will have her undergo an EKG and also a stress test. Patient may benefit from Cardiology consultation if any abnormalities noted. 07/18/2023 the patient is here for a pulmonary follow-up visit. Overall the patient has been doing fairly well from a respiratory status. She does complaint of back pain. Been bothering her significant amount. She is going to be evaluated for sciatica soon. In the meantime we did review her CT scan of the chest that she had back in November 2022 demonstrating the persistence amount of her vessels secondary to her kyphoplasty. In addition to that underlying pulmonary nodules. She is a high-risk patient because of her smoking history. The patient will need to have a repeat CT scan in a year from her last 1 was be November 2023. she will continue with current respiratory therapy. Will follow-up in December after her CT scan. 01/21/2024 the patient is here for a pulmonary follow-up visit. Overall the patient has been doing okay. She has been developing worsening chest congestion. Also some chest tightness. In addition to that her arthritis has been more active. She had been on biologic therapy for her rheumatoid arthritis and then switched over to methotrexate. She has been on methotrexate now just for several weeks. Still not controlling her arthritis. We did talk about methotrexate be in an excellent medication for rheumatoid arthritis. Although the patient is aware that in some cases it can result in worsening adverse pulmonary symptoms. She did have a CT scan in November which is personally reviewed. I do not believe she was on the methotrexate done. She had a slight area of ground-glass opacity. She also has evidence of chronic bronchitis. We are going to go ahead and treat her for bronchitis with doxycycline. She is going to try to provide us with a sputum culture. In the meantime the patient also has some wheezing and will place her on low dose prednisone taper to see if we can provide some relief. Will monitor closely her symptoms. If the patient continues to have worsening cough, will consider additional imaging at that point. To make sure that she has not developing any adverse effects from the medication. She continues with respiratory therapy. Will follow-up until 3 months. If she does not worsening symptoms prior to this she will call for an earlier assessment. 04/28/2024 the patient is here for a pulmonary follow-up visit. The patient continues to struggle with her breathing. She has still having significant chest congestion shortness breath and chest tightness. She does not feel like the Breo has been helping. She did see her primary care doctor recently and she was placed on another course of antibiotics and prednisone. She felt better and then she stopped the prednisone. Once she stopped the prednisone her arthritis became very active. Therefore she started small dose again. She has also been cutting down the smoking. She is only smoking about 2 cigarettes a day. She needs to quit altogether. She is wanting to try the Nicorette gum. The patient is also following closely with Rheumatology. He again looked at her CT scan of the chest demonstrating some evidence of bronchitis. The patient also has pulmonary nodules. She will need to have follow-up. But at this point she does not need any additional imaging at this time. Will go ahead and treat her effectively with maximizing her respiratory therapy, started her on azithromycin 3 times a week. The patient may also be a good candidate for Daliresp to minimize her prednisone use in to improve her chronic bronchitis symptoms. She needs to be careful because she does not have too much weight to lose. If she notices significant weight loss then will have to either decrease it or stop it. The patient also monitor for any GI symptoms. 07/09/2024 the patient is here for pulmonary follow-up visit. Overall the patient has been doing fair. She has significant arthritic bodies and significant swelling of her small joints due to her rheumatoid arthritis. She has been on the methotrexate 20 mg weekly and also has been under folic acid. Seems like it does help but not enough. She also has osteoporosis making it difficult to place her on prednisone. But at this time she looks extremely uncomfortable and I will send her some prednisone for her to taper down. The patient also has been having worsening respiratory symptoms. She finds that the azithromycin has been helpful although it does not help her throughout. Therefore will try to increase the dose of the 500 mg dose to see if this does more effective. If it does not work she can always call and we can think about another option. The patient continues with respiratory therapy and she does use it regularly. She also continues on the Daliresp. Which will continue for now as well. Therefore, the patient will try the additional medicines and will follow-up in a couple months and see there is any progress. She has any worsening issues she will call for an earlier assessment. [facility] Medical History Bronchitis Hx of nephrolithotomy with removal of calculi Swelling of finger joint of right hand Swelling of finger joint of left hand Hypocalcemia Coronary artery calcification seen on CAT scan Dyspnea Pulmonary nodules COPD (chronic obstructive pulmonary disease) Chest pain Pulmonary emboli Urinary urgency Hx of hemorrhoids Seropositive rheumatoid arthritis Surgical History Hx of tubal ligation Hx of hand surgery Hx of parathyroidectomy Hx of kyphoplasty History of back surgery History of esophagogastroduodenoscopy (EGD) Hx of colonoscopy Family History Father Cancer Mother Colon cancer HTN (hypertension) Diabetes Breast cancer Brother Lupus HTN (hypertension) Kidney transplanted Sister HTN (hypertension) Cancer Liver transplanted Other FH: cancer FH: mental illness Social History (Updated 07/09/24 @ 13:32 by Eli Moreno CMA) Household Members: None Housing: House Alcohol intake: former Patient Tobacco Use Status: Current everyday Tobacco user Tobacco use type: Cigarette Cigarettes Per Day: 4 Years Smoked: 43 Review of Systems Const Denies fatigue, Denies fever(s), Denies night sweats, Denies poor appetite and Denies weight loss Eyes Details: glasses Reports requires corrective lenses ENT Denies dysphagia Card Denies chest pain and Reports dyspnea on exertion Resp Reports chest congestion, Reports cough, Reports dyspnea on exertion and Reports wheezing GI Denies dysphagia Musc Reports abnormal gait, Reports back pain, Reports myalgias, Reports arthralgias, Reports joint swelling and Reports limited range of motion Skin/Breast Denies pruritus, Denies lesions, Denies rash and Denies jaundice Neuro Denies Abnormal speech present and Reports abnormal gait Psych Reports mood swings Endo Denies fatigue Mason/Lymph Denies as per HPI, Denies easy bleeding and Denies easy bruising Aller/Immun Reports wheezing Physical Exam Vital Signs: Last Vital Signs Pulse 79 07/09/24 13:27 BP 132/74 07/09/24 13:27 Pulse Ox 98 07/09/24 13:27 Oxygen Delivery Method Room Air 07/09/24 13:27 BMI result Body Mass Index 22.6 Const General: cooperative, no acute distress, alert and awake Nutritional Appearance: well nourished Orientation/consciousness: patient oriented x3 Limitations: no limitations HEENT Head: Yes normal to inspection and Yes atraumatic Neck Neck: Yes normal visual inspection, Yes full ROM and Yes no lymphadenopathy Chest Chest palpation & inspection: normal inspection of the chest Resp Effort & Inspection: normal respiratory effort and prolonged expiratory phase Auscultation: no rhonchi, no wheezes and diminished lung sounds Cardio Rate: regular rate Rhythm: regular rhythm GI Palpation (GI): Soft to palpation General: Yes no CVA tenderness Back/Spine/Pelvis Back: no CVA tenderness Neuro General: patient oriented x3 and moves all extremities Speech: No Abnormal speech present Extrem Right upper extremity: Extremity exam: right hand Details: tenderness and swelling Left upper extremity: hand Details: tenderness and swelling Office Procedures Flu Questionnaire Does the patient have a severe egg allergy?: No Does the patient have severe life threatening allergies?: No Does the patient have a fever or illness today?: No Has the patient ever had Guillain-Markham Syndrome?: No Has the patient ever had any past reaction to a flu shot?: No Immunizations Fluarix Triv [id number] (PF) 45 mcg (15 mcg x 3)/0.5 mL IM syringe Performing Provider: John Meraz MD Performing Location: [facility] Administered by: Lianet Oleary LPN on 07/09/24 14:09 Dose Route Admin Location Dispensed Lot Number Expiration Date NDC Cryptologic Technician Technical 0.5 mL IM Left Deltoid 0.5 mL [id number] 01/18/25 [id number] [employer] VIS Given Date VIS Provided VIS Publication Date 07/09/24 Single Vaccine 21 Eligibility Eligibility Date Funding Source Not [facility] Eligible 07/09/24 Private Assessment & Plan Assessment & Plan (1) COPD (chronic obstructive pulmonary disease): Code(s): J44.9 - Chronic obstructive pulmonary disease, unspecified Category: Medical Qualifiers: COPD type: COPD with acute lower respiratory infection Qualified Code(s): J44.0 - Chronic obstructive pulmonary disease with (acute) lower respiratory infection (2) Pulmonary nodules: Code(s): R91.8 - Other nonspecific abnormal finding of lung field Category: Medical (3) Coronary artery calcification seen on CAT scan: Code(s): I25.10 - Atherosclerotic heart disease of [place] coronary artery without angina pectoris Category: Medical (4) Bronchitis: Code(s): J40 - Bronchitis, not specified as acute or chronic Category: Medical (5) Pulmonary emboli: Code(s): I26.99 - Other pulmonary embolism without acute cor pulmonale Category: Medical Qualifiers: Acute cor pulmonale presence: unspecified Chronicity: chronic Pulmonary embolism type: unspecified Qualified Code(s): I27.82 - Chronic pulmonary embolism (6) Seropositive rheumatoid arthritis: Comment: +RF+CCP dx 2017 Methotrexate: prior to 2017- October 2021 effective per patient Leflunomide: October 2022 DC 12/2023 not effective Humira 2023 DC 12/2023 ineffective MTX restarted 12/2023 Code(s): M05.9 - Rheumatoid arthritis with rheumatoid factor, unspecified Category: Medical Plan Breztri increase Azithromycin 500mg MWF Daliresp taper Prednisone BISI as needed Smoking cessation: nicorette gum start nasonex nasal spray Flu shot F/U 2-3 months Orders: Orders Influenza [id number] Immunization Today J40 - Bronchitis, not specified as acute or chronic, J44.0 - Chronic obstructive pulmonary disease with (acute) lower respiratory infection Medications: New azithromycin Saturday, Saturday, Saturday 500 mg PO QWEEK 12 tabs 6RF 28 days prednisone 20 mg (4 x 5 mg) PO DAILY 120 tabs 1RF 30 days mometasone 50 mcg/actuation (Nasonex 24hr Allergy) administer into each nostril 2 sprays intranasal DAILY 17 grams 11RF 30 days Discontinued azithromycin Take 1 tablet on Saturday/Saturday/Saturday Discontinued Reason: Doctor's Order 250 mg PO 3XW 28 days 12 tabs 6RF K21.9 - Gastro-esophageal reflux disease without esophagitis Coding Level of Care Code Est Pt Level 4 (64083) Complex EM visit Add On G2211 Diagnoses Chronic obstructive pulmonary disease with acute lower respiratory infection J44.0 COPD type: COPD with acute lower respiratory infection Pulmonary nodules R91.8 Coronary artery calcification seen on CAT scan I25.10 Bronchitis J40 Chronic pulmonary embolism, unspecified pulmonary embolism type, unspecified whether acute cor pulmonale present I27.82 Acute cor pulmonale presence: unspecified Chronicity: chronic Pulmonary embolism type: unspecified Seropositive rheumatoid arthritis M05.9 Time Spent (min) 17
== END 2024-07-09 14:09 | disposition home or self-care (01) ==
PROVIDERS: PCP Internal Medicine; Visit Provider Hospitalist
DX: J44.0 Chronic obstructive pulmonary disease with (acute) lower respiratory infection (principal); R91.8 Other nonspecific abnormal finding of lung field; I25.10 Atherosclerotic heart disease of native coronary artery without angina pectoris; J40 Bronchitis, not specified as acute or chronic; I27.82 Chronic pulmonary embolism; M05.9 Rheumatoid arthritis with rheumatoid factor, unspecified
CPT/HCPCS: 99214; G2211

== ENCOUNTER → 2024-07-09 13:22 | Outpatient (BNVA) | payer MEDICARE, MEDICAID, SELFPAY | PROVIDERS: PCP Internal Medicine; Visit Provider Hospitalist | DX: J44.0 Chronic obstructive pulmonary disease with (acute) lower respiratory infection (principal); J40 Bronchitis, not specified as acute or chronic; R91.8 Other nonspecific abnormal finding of lung field; I25.10 Atherosclerotic heart disease of native coronary artery without angina pectoris; I27.82 Chronic pulmonary embolism; M05.9 Rheumatoid arthritis with rheumatoid factor, unspecified; K21.9 Gastro-esophageal reflux disease without esophagitis; F17.210 Nicotine dependence, cigarettes, uncomplicated; Z23 Encounter for immunization | CPT/HCPCS: 90471; 90656; 99212 ==

== ENCOUNTER 2024-07-21 13:45 | Outpatient (REF) | payer MEDICARE, MEDICAID, SELFPAY ==
[2024-07-21 14:14] LABS: Hematocrit 37.4 % (37.0-47.0); Hemoglobin 12.6 g/dl (12.0-16.0); Mean Corpuscular HGB Conc 33.7 g/dl (31.0-35.0); Mean Corpuscular Hemoglobin 28.5 pg (27.0-33.0); Mean Corpuscular Volume 84.6 fL (80.0-98.0); PLT CLUMP 1; Red Blood Count 4.42 X10*6/uL (4.20-5.50); Red Cell Distribution Width 15.6 % (11.0-16.0)
[2024-07-21 14:17] LABS: WBC ABN SCTR FOR CBC 1
[2024-07-21 14:33] LABS: Eosinophils Percent Manual 4 % (0-4); Lymphocytes Percent Manual 36 % (20-40); Monocytes Percent Manual 4 % (2-11); Neutrophils Percent Manual 56 % (45-73)
[2024-07-21 14:38] LABS: Alanine Aminotransferase 22 U/L (0-31); Albumin Level 4.1 g/dL (3.5-5.0); Alkaline Phosphatase 73 U/L (39-117); Anion Gap 9 (12-20); Aspartate Amino Transferase 24 U/L (5-31); Bilirubin Total 0.4 mg/dL (0.0-1.0); Blood Urea Nitrogen 10 mg/dL (9-16); C Reactive Protein < 0.10 mg/dL (< or = 0.50); Calcium 8.8 mg/dL (8.4-10.2); Carbon Dioxide 28 mmol/L (22-29); Chloride 106 mmol/L (96-108); Estimated Glomerular Filt Rate > 60; Glucose Random 83 mg/dL (60-115); Sodium 139 mmol/L (135-145)
[2024-07-21 14:39] LABS: RBC Morphology NORMAL; White Blood Count 10.2 X10*3/uL (4.8-10.8)
[2024-07-21 14:40] LABS: Band Neutrophils Percent 0 % (3-5); Neutrophils Absolute Manual 5.7 X10*3/uL (2.0-8.3)
[2024-07-21 14:51] LABS: Erythrocyte Sedimentation Rate 3 MM/HR (0-20)
== END 2024-07-21 13:46 | disposition home or self-care (01) ==
LOC: HO.LAB 13:45
PROVIDERS: PCP Internal Medicine; Visit Provider Student in an Organized Health Care Education/Training Program
DX: M05.9 Rheumatoid arthritis with rheumatoid factor, unspecified (principal)
CPT/HCPCS: 36415; 80053; 85007; 85027; 85652; 86140

== ENCOUNTER 2024-07-28 11:15 | Outpatient (AMB) | payer MEDICARE, MEDICAID, SELFPAY ==
[2024-07-28 11:17] VITALS: BP 120/82; PULSE 81; BMI 22.6
--- NOTE | 2024-07-28 11:17 | MHC.OFFVIS ---
Vital Signs 07/28/24 11:17 Height 5 ft 3 in Weight 127 lb 13.89 oz BMI 22.6 BP 120/82 Blood Pressure Location Lt brachial Position Sitting Pulse 81 Intake Visit Reasons: 1 year follow up Intake Note: 1 year follow-up with ekg feeling ok Shiatsu Therapist Required: No Allergies Penicillins [PENICILLINS] Allergy (Intermediate, Verified 07/09/24 13:32) RASH/HIVES dexamethasone Allergy (Verified 07/09/24 13:32) Eye Swelling adalimumab [From Humira] Adverse Reaction (Intermediate, Verified 07/09/24 13:32) Chest Pain Medication List - Last Reconciled 07/28/24 by Pito Sahni MD albuterol sulfate mg inhalation albuterol sulfate 90 mcg/actuation 2 inhalations inhalation QID atorvastatin 40 mg PO DAILY 90 days azithromycin 500 mg PO QWEEK 28 days bisacodyl 10 mg (2 x 5 mg) PO BEDTIME xtyfeelarv-rvxnpqwq-ammnmkidgc 160-9-4.8 mcg/actuation (Breztri Aerosphere) 2 inhalations inhalation BID buspirone 15 mg PO BID cetirizine 10 mg PO DAILY cholecalciferol (vitamin D3) 50 mcg PO DAILY diclofenac sodium 1% 1 - 2 grams topical BID dicyclomine 20 mg PO QID folic acid 1 mg PO DAILY hydrocortisone 2.5% (Procto-Med HC) 1 appl [place] BID PRN lidocaine 5% 2 patches topical DAILY linaclotide (Linzess) 290 mcg PO QAM 30 days ocloqd-vvqrknjg-hibxlfh 24,000-76,000 -120,000 unit (Creon) 2 caps PO BID 30 days lorazepam 1 mg PO BID PRN lurasidone 20 mg PO DAILY methotrexate sodium 20 mg (8 x 2.5 mg) PO QWEEK metoprolol succinate ER 100 mg PO DAILY montelukast 10 mg PO DAILY naloxone 4 mg/actuation 0 sprays intranasal nebulizer and compressor (Vios Aerosol Delivery System) As directed nicotine (polacrilex) (Nicorette) 4 mg buccal Q4H PRN nifedipine ER 120 mg (2 x 60 mg) PO DAILY 90 days nortriptyline 10 mg PO BEDTIME oxycodone mg PO oxycodone ER (OxyContin) 30 mg PO BID polyethylene glycol 3350 17 grams PO DAILY prednisolone acetate 1% drps ophthalmic (eye) prednisolone sodium phosphate mg PO prednisolone sodium phosphate mg PO prednisone 20 mg (4 x 5 mg) PO DAILY 30 days pregabalin 300 mg PO BID rabeprazole 20 mg PO BID roflumilast (Daliresp) 500 mcg PO DAILY 30 days romosozumab-aqqg (Evenity) 210 mg (2.34 mL) subcut .qmonthly simethicone 180 mg PO QID 30 days tamsulosin (Flomax) 0.4 mg PO BEDTIME tizanidine 6 mg PO BEDTIME PRN triamcinolone acetonide (Nasacort) 1 spray intranasal DAILY valacyclovir 1,000 mg PO DAILY valsartan-hydrochlorothiazide 320-25 mg 1 tab PO DAILY vibegron (Gemtesa) 75 mg PO DAILY zolpidem 10 mg PO BEDTIME HPI Comments Details: Brisa comes for follow-up, accompanied by her daughter. She has been following with Pulmonary closely. She is on optimal pulmonary therapy as per her. She continues to have exertional shortness of breath. However more recently she said over the last few months she has been having recurrent retrosternal chest tightness and pressure especially when she is anxious or under stressful situations. Symptoms then resolved after she relaxes. Symptoms happen about 2-3 times a week. Unfortunately she continues to smoke. She is currently on high-intensity statin therapy with atorvastatin 40 although her LDL is not well optimized. She says she has been taking it. She is currently not taking aspirin therapy. No obvious exertional symptoms but she is limited because of exertional shortness of breath. Currently on metoprolol 120 mg daily. [facility] Medical History (Updated 07/28/24 @ 13:07 by Pito Sahni MD) Chest pain Atypical chest pain Bronchitis Hx of nephrolithotomy with removal of calculi Swelling of finger joint of right hand Swelling of finger joint of left hand Hypocalcemia Coronary artery calcification seen on CAT scan Dyspnea Pulmonary nodules COPD (chronic obstructive pulmonary disease) Pulmonary emboli Urinary urgency Hx of hemorrhoids Seropositive rheumatoid arthritis Surgical History Hx of tubal ligation Hx of hand surgery Hx of parathyroidectomy Hx of kyphoplasty History of back surgery History of esophagogastroduodenoscopy (EGD) Hx of colonoscopy Family History Father Cancer Mother Colon cancer HTN (hypertension) Diabetes Breast cancer Brother Lupus HTN (hypertension) Kidney transplanted Sister HTN (hypertension) Cancer Liver transplanted Other FH: cancer FH: mental illness Social History Household Members: None Housing: House Alcohol intake: former Patient Tobacco Use Status: Current everyday Tobacco user Tobacco use type: Cigarette Cigarettes Per Day: 4 Years Smoked: 43 Review of Systems Const Denies chills, Denies fatigue, Denies fever(s), Denies frequent falls, Denies weakness, Denies weight gain and Denies weight loss ENT Denies dizziness Card Denies chest pain, Denies leg edema, Denies lightheadedness, Denies palpitations, Denies dyspnea, Denies dyspnea on exertion, Denies orthopnea and Denies other (loss of consciousness) Resp Denies cough, Denies dyspnea and Denies dyspnea on exertion GI Denies hematochezia and Denies change in stool character Musc Denies abnormal gait, Denies muscle weakness, Denies numbness, Denies radiating pain into limb and Denies tingling Neuro Denies Abnormal speech present, Denies abnormal gait, Denies dizziness, Denies frequent falls, Denies numbness, Denies tingling and Denies weakness Endo Denies fatigue and Denies palpitations Physical Exam Vital Signs: Last Vital Signs Pulse 81 07/28/24 11:17 BP 120/82 07/28/24 11:17 BMI result Body Mass Index 22.6 Const General: cooperative, comfortable, no acute distress, alert and awake Nutritional Appearance: average body habitus Orientation/consciousness: patient oriented x3 Limitations: ambulation with cane Neck Neck: Yes trachea midline, Yes supple and Yes no JVD Resp Effort & Inspection: normal respiratory effort Auscultation: clear to auscultation bilaterally Cardio Jugular venous distension: no JVD Palpation: normal PMI Rate: regular rate Rhythm: regular rhythm Heart sounds: S1 normal heart sound present, S2 normal heart sound present, no click, no gallops, no murmurs and no rubs Neuro General: patient oriented x3 and no focal motor deficits Speech: No Abnormal speech present Extrem General: Yes no clubbing, cyanosis or edema Office Procedures EKG Details: EKG shows normal sinus rhythm [place] [id number], Complete Assessment & Plan Assessment & Plan (1) Chest pain: Code(s): R07.9 - Chest pain, unspecified Category: Medical Qualifiers: Chest pain type: unspecified Qualified Code(s): R07.9 - Chest pain, unspecified Plan: Patient with increasing symptoms of retrosternal chest pain under stressful situation or under anxiety. Coronary artery disease needs to be ruled out given her presence of coronary disease calcium on CT scan of the chest. There is high likelihood of underlying obstructive coronary artery disease and/or vaso spasm. She is currently on dual therapy with nifedipine and metoprolol which are both dual antianginal agents. Will suggest her to undergo coronary CTA for further evaluation. Meanwhile I have advised her to take low-dose aspirin therapy. I am also going to start on isosorbide mononitrate 30 mg daily to improve her symptoms. This may help with vasospastic angina as well. Also advise complete smoking cessation. Also advised to increase her atorvastatin to 80 mg and add ezetimibe 10 mg to regimen. Follow-up lipid panel in 2 months. Target goal LDL closer to 60 mg/dL. Importance of medical therapy was discussed. (2) Hypertension: Code(s): I10 - Essential (primary) hypertension Category: Medical Qualifiers: Hypertension type: primary hypertension Qualified Code(s): I10 - Essential (primary) hypertension Plan: Hypertension which is currently overall well optimized on current medical therapy. Importance of good blood pressure control was discussed. Continue current therapy. Goal blood pressure less 130/84. Low-salt diet was discussed. Maintain activity level as tolerated. Will follow up in the clinic in 2 months time, sooner p.r.n.. Thank you for allowing me to partake in his care Coding Level of Care Code Est Pt Level 4 (48789) Complex EM visit Add On G2211 Diagnoses Chest pain, unspecified type R07.9 Chest pain type: unspecified Primary hypertension I10 Hypertension type: primary hypertension CPT Codes EKG - CPT: [id number], Complete ([id number])
== END 2024-07-28 12:56 | disposition home or self-care (01) ==
PROVIDERS: PCP Internal Medicine; Visit Provider Internal Medicine Cardiovascular Disease
DX: R07.9 Chest pain, unspecified (principal); I10 Essential (primary) hypertension
CPT/HCPCS: 93010; 99214; G2211

== ENCOUNTER → 2024-07-28 11:15 | Outpatient (BNVA) | payer MEDICARE, MEDICAID, SELFPAY | PROVIDERS: PCP Internal Medicine; Visit Provider Internal Medicine Cardiovascular Disease | DX: R07.9 Chest pain, unspecified (principal); I10 Essential (primary) hypertension | CPT/HCPCS: 93005; 99212 ==

== ENCOUNTER 2024-08-13 14:25 | Outpatient (AMB) | payer MEDICARE, MEDICAID, SELFPAY ==
--- NOTE | 2024-08-13 14:30 | A.OFFVIS_ITS ---
Vital Signs 08/13/24 14:32 Height 5 ft 3 in Weight 132 lb 15.02 oz BMI 23.5 BP 146/72 H Blood Pressure Location Rt brachial Position Sitting Pulse 92 Pulse Source Pulse Oximeter Intake Visit Reasons: Osteoporosis/evenity #4 Intake Note: Patient present today for Osteoporosis, Evenity number 4. 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 Required: No Accompanied by: Spouse Allergies Penicillins [PENICILLINS] Allergy (Intermediate, Verified 08/13/24 14:33) RASH/HIVES dexamethasone Allergy (Verified 08/13/24 14:33) Eye Swelling adalimumab [From Humira] Adverse Reaction (Intermediate, Verified 08/13/24 14:33) Chest Pain Medication List - Last Reconciled 08/13/24 by Roddy Queen MD albuterol sulfate mg inhalation albuterol sulfate 90 mcg/actuation 2 inhalations inhalation QID aspirin (Adult Low Dose Aspirin) 81 mg PO DAILY atorvastatin 80 mg PO DAILY azithromycin 500 mg PO QWEEK 28 days bisacodyl 10 mg (2 x 5 mg) PO BEDTIME khmsiukdqn-xfdmxjuw-eatkkllwmh 160-9-4.8 mcg/actuation (Breztri Aerosphere) 2 inhalations inhalation BID buspirone 15 mg PO BID cetirizine 10 mg PO DAILY cholecalciferol (vitamin D3) 50 mcg PO DAILY diclofenac sodium 1% 1 - 2 grams topical BID dicyclomine 20 mg PO QID ezetimibe 10 mg PO DAILY folic acid 1 mg PO DAILY hydrocortisone 2.5% (Procto-Med HC) 1 appl [place] BID PRN isosorbide mononitrate ER 30 mg PO DAILY lidocaine 5% 2 patches topical DAILY linaclotide (Linzess) 290 mcg PO QAM 30 days jhcpky-aqbkvbwg-hybmfrl 24,000-76,000 -120,000 unit (Creon) 2 caps PO BID 30 days lorazepam 1 mg PO BID PRN lurasidone 20 mg PO DAILY lurasidone mg PO DAILY methotrexate sodium 20 mg (8 x 2.5 mg) PO QWEEK metoprolol succinate ER 100 mg PO DAILY mometasone 50 mcg/actuation intranasal DAILY montelukast 10 mg PO DAILY naloxone 4 mg/actuation 0 sprays intranasal nebulizer and compressor (KartMe Aerosol Delivery System) As directed nicotine (polacrilex) (Nicorette) 4 mg buccal Q4H PRN nifedipine ER 120 mg (2 x 60 mg) PO DAILY 90 days nortriptyline 10 mg PO BEDTIME oxycodone mg PO oxycodone ER (OxyContin) 30 mg PO BID polyethylene glycol 3350 17 grams PO DAILY prednisolone acetate 1% drps ophthalmic (eye) prednisolone sodium phosphate mg PO prednisolone sodium phosphate mg PO prednisone 20 mg (4 x 5 mg) PO DAILY 30 days pregabalin 300 mg PO BID rabeprazole 20 mg PO BID roflumilast (Daliresp) 500 mcg PO DAILY 30 days romosozumab-aqqg (Evenity) 210 mg (2.34 mL) subcut .qmonthly simethicone 180 mg PO QID 30 days tamsulosin (Flomax) 0.4 mg PO BEDTIME tizanidine 6 mg PO BEDTIME PRN triamcinolone acetonide (Nasacort) 1 spray intranasal DAILY valacyclovir 1,000 mg PO DAILY valsartan-hydrochlorothiazide 320-25 mg 1 tab PO DAILY vibegron (Gemtesa) 75 mg PO DAILY zolpidem 10 mg PO BEDTIME HPI Comments Details: 59 YO Female with PMHx hyperparathyroidism status post parathyroid surgery 12/05/20 is seen in consultation at the request of PCP for Osteoporosis. She has previous seen a [facility] diagnosed in few yrs ago . Never Received treatment in the past except for alendronate on 11/13/22. history of pathologic fracture fragility fractures requiring kyphoplasty 10/08/2022. Has few servings of dietary calcium per day Not Takes Calcium supplement Not Takes IU of Vitamin D daily. takes PPI, anticoagulant, antiepileptic not taking glucocorticoid medication. 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 Has dentures No planned upcoming dental work or extractions. Does smoke DXA dated 09/28/21 : EXAMINATION: BONE DENSITOMETRY CLINICAL INDICATION: Postmenopausal. COMPARISON: Baseline BD dated 02/04/2018. TECHNIQUE: Using a [employer] DXA System (software version: 13.1) manufactured by [employer], dual-energy x-ray absorptiometry was performed of the lumbar spine and left hip. The images are of good technical quality. Summary results are attached. FINDINGS: AP SPINE L1-L4: Current: BMD 0.894 g/cm2, Z-score -1.3, T-score -2.4, osteopenia, 5.9% decrease from baseline (<5% change is not significant). Baseline: BMD 0.950 g/cm2. LEFT FEMUR, NECK: Current: BMD 0.670 g/cm2, Z-score -1.5, T-score -2.6, osteoporosis. Baseline: BMD 0.777 g/cm2. LEFT FEMUR, TOTAL: Current: BMD 0.704 g/cm2, Z-score -1.6, T-score -2.4, osteopenia, 11.7% decrease from baseline (<5% change is not significant). Baseline: BMD 0.797 g/cm2. IDENTIFIED RISK FACTORS: Rheumatoid arthritis, tobacco use (current smoker), height loss, glucocorticoids (chronic), menopause. HISTORY OF FRACTURE: None listed. MEDICATIONS: Calcium supplements or multivitamin, vitamin D. MM/XR DEXA axial skeleton IMPRESSION: 1. DIAGNOSIS: Osteoporosis based on the lowest T-score value of -2.6 in the femoral neck applying World Health Organization criteria.? ? Labs: Took Evenity 2 doses with rash in mouth, chest pain , rash and difficulty breathing - SOB remains after stopping . Reinitiated on steroids by Rheumatology. Jagjit are swollen and numbness and tingling in hands , hip and joint pain. We delayed the Evenity injection and patient has still persisted in having the same symptoms. [facility] Medical History (Updated 07/28/24 @ 13:07 by Pito Sahni MD) Chest pain Atypical chest pain Bronchitis Hx of nephrolithotomy with removal of calculi Swelling of finger joint of right hand Swelling of finger joint of left hand Hypocalcemia Coronary artery calcification seen on CAT scan Dyspnea Pulmonary nodules COPD (chronic obstructive pulmonary disease) Pulmonary emboli Urinary urgency Hx of hemorrhoids Seropositive rheumatoid arthritis Surgical History Hx of tubal ligation Hx of hand surgery Hx of parathyroidectomy Hx of kyphoplasty History of back surgery History of esophagogastroduodenoscopy (EGD) Hx of colonoscopy Family History Father Cancer Mother Colon cancer HTN (hypertension) Diabetes Breast cancer Brother Lupus HTN (hypertension) Kidney transplanted Sister HTN (hypertension) Cancer Liver transplanted Other FH: cancer FH: mental illness Social History Household Members: None Housing: House Alcohol intake: former Patient Tobacco Use Status: Current everyday Tobacco user Tobacco use type: Cigarette Cigarettes Per Day: 4 Years Smoked: 43 Physical Exam Vital Signs: BMI result Body Mass Index 23.5 Assessment & Plan Assessment & Plan (1) Osteoporosis: Comment: History of hyper parathyroidism and fragility fractures Code(s): M81.0 - Age-related osteoporosis without current pathological fracture Category: Medical Qualifiers: Osteoporosis type: age-related Presence of current pathological fracture: with current pathological fracture Encounter type: subsequent encounter Fracture healing: with routine healing Qualified Code(s): M80.00XD - Age-related osteoporosis with current pathological fracture, unspecified site, subsequent encounter for fracture with routine healing Plan: This is a 59-year-old female with a history of primary hyperparathyroidism status post parathyroidectomy with normalization of calcium and PTH with recent vertebral of fragility fracture and kyphoplasty. Secondary workup was negative . She is currently on Evenity for 3 mos duration. She c ontinues to have nonspecific symptoms even after not receiving Evenity Plan is to continue the Evenity injections. I did tell the patient that if she has a worsening of her symptoms after the injection to let me know if we feel it is correlated to the Evenity, can switch to another anabolic but patient at this point wants to continue with the Evenity injections Coding Level of Care Code Est Pt Level 3 (41049) Diagnoses Age-related osteoporosis with current pathological fracture with routine healing, subsequent encounter M80.00XD Osteoporosis type: age-related Presence of current pathological fracture: with current pathological fracture Encounter type: subsequent encounter Fracture healing: with routine healing
[2024-08-13 14:32] VITALS: BP 146/72; PULSE 92; BMI 23.5
== END 2024-08-13 15:18 | disposition home or self-care (01) ==
PROVIDERS: PCP Internal Medicine; Visit Provider Internal Medicine Endocrinology, Diabetes & Metabolism
DX: M80.00XD Age-related osteoporosis with current pathological fracture, unspecified site, subsequent encounter for fracture with routine healing (principal)
CPT/HCPCS: 99213

== ENCOUNTER → 2024-08-13 14:25 | Outpatient (BNVA) | payer MEDICARE, MEDICAID, SELFPAY | PROVIDERS: PCP Internal Medicine; Visit Provider Internal Medicine Endocrinology, Diabetes & Metabolism | DX: M80.00XD Age-related osteoporosis with current pathological fracture, unspecified site, subsequent encounter for fracture with routine healing (principal) | CPT/HCPCS: 96372; 99212; J3111 ==

== ENCOUNTER 2024-08-14 10:02 | Outpatient (REF) | payer MEDICARE, MEDICAID, SELFPAY ==
[2024-08-14 11:48] LABS: Anion Gap 11 (12-20); Blood Urea Nitrogen 13 mg/dL (9-16); Calcium 9.5 mg/dL (8.4-10.2); Carbon Dioxide 29 mmol/L (22-29); Chloride 100 mmol/L (96-108); Estimated Glomerular Filt Rate > 60; Glucose Random 85 mg/dL (60-115); Potassium 4.2 mmol/L (3.3-5.1); Sodium 136 mmol/L (135-145)
== END 2024-08-14 10:03 | disposition home or self-care (01) ==
LOC: HO.LAB 10:02
PROVIDERS: PCP Internal Medicine; Visit Provider Internal Medicine Cardiovascular Disease
DX: R07.9 Chest pain, unspecified (principal)
CPT/HCPCS: 36415; 80048

== ENCOUNTER → 2024-08-19 09:15 | Outpatient (REF) | payer MEDICARE, MEDICAID, SELFPAY ==
--- NOTE | 2024-08-19 09:24 | ECG_ITS ---
Test Reason : COPD Blood Pressure : */* mmHG Vent. Rate : 70 BPM Atrial Rate : 70 BPM P-R Int : 166 ms QRS Dur : 86 ms QT Int : 406 ms P-R-T Axes : 57 41 49 degrees QTcB Int : 438 ms Normal sinus rhythm Normal ECG When compared with ECG of 10-May-2018 13:03, No significant change was found Referred By: John Meraz Electronically Signed By: PERI STALLINGS
--- OUTSIDE RECORDS SUMMARY | 2024-08-19 10:46 | XMS_ITS | Clinical Summary ---
Author Organization [facility] Address [address] [place] [address] Phone Care Team Providers Care Validation Intern Name Role Phone Jackie Watt MD Primary Care Provider Allergies Active Allergy Reactions Criticality Noted Date Comments Bupropion Other (see comments) 10/05/2020 Citalopram Other (see comments) 10/05/2020 Duloxetine Other (see comments) 10/05/2020 Hydrochlorothiazide Other (see comments) 2020 Lisinopril Other (see comments) 10/05/2020 Nicotine Other (see comments) 10/05/2020 Penicillins Other (see comments) 10/05/2020 Medications albuterol HFA (PROVENTIL HFA;VENTOLIN HFA) 108 (90 Base) MCG/ACT inhaler Active folic acid (FOLVITE) 1 MG tablet Take 1 tablet by mouth 1 (one) time each day Active gabapentin (NEURONTIN) 800 MG tablet Take 1 tablet by mouth 1 (one) time each day Active lidocaine (LIDODERM) 5 % patch Active LORazepam (ATIVAN) 1 MG tablet Take 1 tablet by mouth 1 (one) time each day Active metoprolol succinate XL (TOPROL-XL) 100 MG 24 hr tablet Take 1 tablet by mouth 1 (one) time each day Active triamcinolone (NASACORT) 55 MCG/ACT nasal inhaler Active valsartan (DIOVAN) 320 MG tablet Take 1 tablet by mouth 1 (one) time each day Active zolpidem (AMBIEN) 10 MG tablet Take 1 tablet by mouth at bed time Active Hydrocortisone, Perianal, 2.5 % cream Active Linzess 290 MCG capsule Take 1 capsule by mouth 1 (one) time each day 1 Active Pulmicort Flexhaler 90 MCG/ACT inhaler INHALE 2 PUFFS BY MOUTH INTO THE LUNGS EVERY DAY 1 Active NIFEdipine CC (ADALAT CC) 60 MG 24 hr tablet Take 1 tablet by mouth 1 (one) time each day 1 Active oxyCODONE (ROXICODONE) 10 MG immediate release tablet TAKE 1 TABLET BY MOUTH EVERY 6 HOURS NEEDED FOR SEVERE PAIN 1 Active pregabalin (LYRICA) 150 MG capsule Take 1 capsule by mouth 2 (two) times a day 1 Active simethicone (MYLICON,GAS-X) 180 MG capsule Take 180 mg by mouth every 6 (six) hours if needed for flatulence Active RABEprazole (ACIPHEX) 20 MG EC tablet Take 20 mg by mouth 1 (one) time each day before breakfast Do not crush, chew, or split. Active cetirizine (ZyrTEC) 10 MG tablet Take 10 mg by mouth 1 (one) time each day Active montelukast (SINGULAIR) 10 MG tablet Take 10 mg by mouth every night Active KETOPROFEN EX Apply topically Active sulfacetamide-p rednisoLONE (BLEPHAMIDE) 10-0.2 % ophthalmic suspension 1 drop Active valACYclovir (Valtrex) 1 g tablet Take 1,000 mg by mouth 1 (one) time each day Active Active Problems Problem Noted Date Diagnosed Date Hypertension 05/10/2021 Renal stone 05/10/2021 Essential hypertension 10/05/2020 Hypercalcemia 10/05/2020 Family History Medical History Relation Comments Hypertension Father Diabetes Mother Heart disease Mother Hypertension Mother Kidney disease Sibling 1 Hypertension Sibling 2 Relation Status Comments Father Alive Mother Sibling 1 Sibling 2 Social History Tobacco Use Types Packs/Day Years Used Date Smoking Tobacco: Every Day Smokeless Tobacco: Never Tobacco Cessation:Ready to Q uit: Not Asked; Counseling Given: Not Answered Alcohol Use Standard Drinks/Week Comments Yes 0 (1 standard drink = 0.6 oz pure alcohol) Alcoholic Drinks/day: Occasional social drink Comments Unknown Sex and Gender Information Value Date Recorded Sex Assigned at Not on file Legal Sex Female 4:55 PM EST Gender Identity Not on file Sexual Orientation Not on file Last Filed Vital Signs Vital Sign Reading Time Taken Comments Blood Pressure 120/72 05/30/2022 3:56 PM EST Pulse 64 05/30/2022 3:56 PM EST Temperature - - Respiratory Rate - - Oxygen Saturation 97% 05/10/2021 1:58 PM EDT Inhaled Oxygen Concentration - - Weight 65.5 kg (144 lb 6.4 oz) 05/30/2022 3:56 P M EST Height 160 cm (5' 3 ) 04/06/2020 12:00 PM EDT Body Mass Index 25.58 04/06/2020 12:00 PM EDT Plan of Treatment Health Maintenance Due Date Last Done Comments Breast Cancer Screening 1965 Pneumococcal Vaccine: Pediat rics (0 to 5 Years) and At-Risk Patients (6 to 64 Years) (1 of 2 - PCV) 1970 Colorectal Cancer Screening: Annual FOBT 2013 Colorectal Cancer Screening: Colonoscopy 2013 Colorectal Cancer Screening: Sigmoidoscopy 2013 Influenza Vaccine (#1) 2024 Hepatitis B Vaccine Aged Out No longe r eligible based on patient's age to complete this topic Insurance [place]ID [place] ([id number]) [place] ([id number]) Care Teams Validation Intern Relationship Specialty Start Date End Date Jackie Watt MD [address] [place] [address] [address] [place], [place] PCP - General 08/01/20
== END ==
LOC: HO.CARD 09:15
PROVIDERS: PCP Internal Medicine; Visit Provider Hospitalist
DX: J44.9 Chronic obstructive pulmonary disease, unspecified (principal)
CPT/HCPCS: 93005

== ENCOUNTER 2024-09-04 14:16 | Outpatient (AMB) | payer MEDICARE, MEDICAID, SELFPAY ==
--- OUTSIDE RECORDS SUMMARY | 2024-09-04 14:18 | XMS_ITS | Clinical Summary ---
Author Organization [facility] Address [address] [place] [address] Phone Care Team Providers Care Line Fisher Name Role Phone Jackie Watt MD Primary [...] Insurance [place] ([id number]) [place] ([id number]) Care Teams Line Fisher Relationship Specialty Start Date End Date Jackie Watt MD [address] [place] [address] [address] [place], [place] PCP - General 08/01/20
--- NOTE | 2024-09-04 14:19 | HO.NEPHOV ---
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 She has history of parathyroidectomy with normalization of serum calcium. She also has had pulmonary embolism and had been on anticoagulation. She had a brother who developed ESRD due to lupus nephritis. She had denies chest pain, nausea, vomiting, diarrhea, proximal nocturnal dyspnea or orthopnea. She claims to be compliant with her diet and medications. Her renal functions had been stable. She is on RA & is methotrexate. [facility] Medical History (Updated 07/28/24 @ 13:07 by Pito Sahni MD) Chest pain Atypical chest pain Bronchitis Hx of nephrolithotomy with removal of calculi Swelling of finger joint of right hand Swelling of finger joint of left hand Hypocalcemia Coronary artery calcification seen on CAT scan Dyspnea Pulmonary nodules COPD (chronic obstructive pulmonary disease) Pulmonary emboli Urinary urgency Hx of hemorrhoids Seropositive rheumatoid arthritis Surgical History Hx of tubal ligation Hx of hand surgery Hx of parathyroidectomy Hx of kyphoplasty History of back surgery History of esophagogastroduodenoscopy (EGD) Hx of colonoscopy Family History Father Cancer Mother Colon cancer HTN (hypertension) Diabetes Breast cancer Brother Lupus HTN (hypertension) Kidney transplanted Sister HTN (hypertension) Cancer Liver transplanted Other FH: cancer FH: mental illness Social History Household Members: None Housing: House Alcohol intake: former Patient Tobacco Use Status: Current everyday Tobacco user Tobacco use type: Cigarette Cigarettes Per Day: 4 Years Smoked: 43 Review of Systems Const All systems reviewed & are unremarkable except as noted in HPI and below Physical Exam Vital Signs: Last Vital Signs Pulse 81 09/04/24 14:21 BP 170/90 H 09/04/24 14:21 Pulse Ox 97 09/04/24 14:21 Oxygen Delivery Method Room Air 09/04/24 14:21 BMI result Body Mass Index 24.0 Const General: comfortable and no acute distress Orientation/consciousness: patient oriented x3 HEENT Head: Yes normocephalic Mouth: Normal oral and palatal mucosa present Eyes EOM: EOMs intact bilaterally Neck Neck: Yes supple Resp Auscultation: clear to auscultation bilaterally Cardio Jugular venous distension: no JVD Rate: regular rate GI Palpation (GI): Soft to palpation Auscultation: normal bowel sounds General: Yes no CVA tenderness Back/Spine/Pelvis Back: no CVA tenderness Skin General skin exam: no rashes or lesions noted Neuro General: patient oriented x3 and moves all extremities Extrem General: Yes no pedal edema Results Reviewed Nephrology Results: Sodium 136 mmol/L (135-145) 08/14/24 Potassium 4.2 mmol/L (3.3-5.1) 08/14/24 Chloride 100 mmol/L (96-108) 08/14/24 Carbon Dioxide 29 mmol/L (22-29) 08/14/24 BUN 13 mg/dL (9-16) 08/14/24 Creatinine 0.66 mg/dL (0.5-1.4) 08/14/24 Calcium 9.5 mg/dL (8.4-10.2) 08/14/24 Assessment & Plan Assessment & Plan (1) Nephrolithiasis: Code(s): N20.0 - Calculus of kidney Category: Medical (2) Hypercalciuria: Code(s): R82.994 - Hypercalciuria Category: Medical (3) Hypertension: Code(s): I10 - Essential (primary) hypertension Category: Medical Qualifiers: Hypertension type: primary hypertension Qualified Code(s): I10 - Essential (primary) hypertension Plan Brisa has longstanding hypertension and is on multiple antihypertensive medications. Blood pressure is at goal now. She has no history of known retinopathy, left ventricular hypertrophy, proteinuria or renal dysfunction. She is on multiple antihypertensive medications . She had hypercalcemia with the primary hyperparathyroidism and had undergone parathyroid surgery. She should be on a low-sodium diet. Doppler of renal arteries were normal. She still has 2 small stones on right and one on the left. She is on HCTZ( on ARB/HCTZ).She is going to be followed up for ongoing monitoring and continued care. All her questions were answered. Orders: Orders UA and rflx microscopic 6 Months I10 - Essential (primary) hypertension, N20.0 - Calculus of kidney, R82.994 - Hypercalciuria Protein Creatinine Ratio, Ur 6 Months I10 - Essential (primary) hypertension, N20.0 - Calculus of kidney, R82.994 - Hypercalciuria Creatinine 6 Months I10 - Essential (primary) hypertension, N20.0 - Calculus of kidney, R82.994 - Hypercalciuria Blood Urea Nitrogen 6 Months I10 - Essential (primary) hypertension, N20.0 - Calculus of kidney, R82.994 - Hypercalciuria Electrolytes 6 Months I10 - Essential (primary) hypertension, N20.0 - Calculus of kidney, R82.994 - Hypercalciuria Coding Level of Care Code Est Pt Level 4 (69737) Diagnoses Nephrolithiasis N20.0 Hypercalciuria R82.994 Primary hypertension I10 Hypertension type: primary hypertension
[2024-09-04 14:21] VITALS: BP 170/90; PULSE 81; O2SAT 97; BMI 24.0
== END 2024-09-04 14:48 | disposition home or self-care (01) ==
PROVIDERS: PCP Internal Medicine; Visit Provider Internal Medicine Nephrology
DX: N20.0 Calculus of kidney (principal); R82.994 Hypercalciuria; I10 Essential (primary) hypertension
CPT/HCPCS: 99214

== ENCOUNTER → 2024-09-04 14:16 | Outpatient (BNVA) | payer MEDICARE, MEDICAID, SELFPAY | PROVIDERS: PCP Internal Medicine; Visit Provider Internal Medicine Nephrology | DX: I10 Essential (primary) hypertension (principal); N20.0 Calculus of kidney; R82.994 Hypercalciuria; M06.9 Rheumatoid arthritis, unspecified | CPT/HCPCS: 99212 ==

== ENCOUNTER 2024-09-10 13:21 | Outpatient (AMB) | payer MEDICARE, MEDICAID, SELFPAY ==
--- NOTE | 2024-09-10 14:02 | AM.OFFVISNUR ---
Intake Visit Reasons: Evenity #5 Allergies Penicillins [PENICILLINS] Allergy (Intermediate, Verified 09/04/24 14:21) RASH/HIVES dexamethasone Allergy (Verified 09/04/24 14:21) Eye Swelling adalimumab [From Humira] Adverse Reaction (Intermediate, Verified 09/04/24 14:21) Chest Pain Office Meds romosozumab-aqqg 210 mg/2.34 mL(105 mg/1.17 mL x2)subcutaneous syringe Performing Provider: Roddy Queen MD Performing Location: [facility] Administered by: Beatriz García RN on 09/10/24 14:02 Dose Route Admin Location Dispensed Lot Number Expiration Date ND Clam Sorter 210 mg subcut bilateral upper arms 2.34 mL [id number] 10/19/26 13309-325-97 [facility] Comments: Consent form signed by patient. Pt tolerated injection well and denies any problems with previous injections. Assessment & Plan Assessment & Plan Orders: Orders AMB Romosozumab Injection Patient Supplied Today M80.00XD - Age-related osteoporosis with current pathological fracture, unspecified site, subsequent encounter for fracture with routine healing Medications: New romosozumab-aqqg 210 mg (2.34 mL) subcut ONCE 2.34 mL 0RF M80.00XD - Age-related osteoporosis with current pathological fracture, unspecified site, subsequent encounter for fracture with routine healing Coding
--- OUTSIDE RECORDS SUMMARY | 2024-09-10 14:15 | XMS_ITS | Clinical Summary ---
Author Organization [facility] Address [address] [place] [address] Phone Care Team Providers Care Record Press Tender Name Role Phone Jackie Watt MD Primary [...] Insurance [place]ID [place] ([id number]) [place] ([id number]) Care Teams Record Press Tender Relationship Specialty Start Date End Date Jackie Watt MD [address] [place] [address] [address] [place], [place] PCP - General 08/01/20
== END 2024-09-10 14:04 | disposition home or self-care (01) ==
PROVIDERS: PCP Internal Medicine
DX: M80.00XD Age-related osteoporosis with current pathological fracture, unspecified site, subsequent encounter for fracture with routine healing (principal)

== ENCOUNTER → 2024-09-10 13:21 | Outpatient (BNVA) | payer MEDICARE, MEDICAID, SELFPAY | PROVIDERS: PCP Internal Medicine | DX: M80.00XD Age-related osteoporosis with current pathological fracture, unspecified site, subsequent encounter for fracture with routine healing (principal) | CPT/HCPCS: 96372; J3111 ==

== ENCOUNTER 2024-09-12 09:00 | Outpatient (REF) | payer MEDICARE, MEDICAID, SELFPAY ==
[2024-09-12 09:23] LABS: MANUAL DIFF FLAG NO
[2024-09-12 10:24] LABS: Basophils Absolute Auto 0.1 X10*3/uL (0.0-0.2); Eosinophils Absolute Auto 0.2 X10*3/uL (0.0-0.4); Eosinophils Percent Auto 3.4 % (0-4); Hematocrit 35.8 % (37.0-47.0); Hemoglobin 12.4 g/dl (12.0-16.0); Imm Gran Abs Auto 0.02 X10*3/uL (0.00-0.03); Imm Gran Pct Auto 0.3 % (0.0-0.4); Lymphocytes Percent Auto 29.2 % (20-40); Mean Corpuscular HGB Conc 34.6 g/dl (31.0-35.0); Mean Corpuscular Volume 83.8 fL (80.0-98.0); Mean Platelet Volume 13.3 fL (9.4-12.3); Monocytes Absolute Auto 0.4 X10*3/uL (0.1-1.2); Monocytes Percent Auto 6.3 % (2-11); Neutrophils Absolute Auto 4.1 x10*3/uL (2.0-8.3); Neutrophils Percent Auto 59.8 % (45-73); Platelet Count 151 X10*3/uL (160-400); Red Blood Count 4.27 X10*6/uL (4.20-5.50); Red Cell Distribution Width 14.8 % (11.0-16.0); White Blood Count 6.9 X10*3/uL (4.8-10.8)
[2024-09-12 10:31] LABS: Alanine Aminotransferase 16 U/L (0-31); Albumin Level 4.2 g/dL (3.5-5.0); Alkaline Phosphatase 94 U/L (39-117); Anion Gap 12 (12-20); Aspartate Amino Transferase 28 U/L (5-31); Bilirubin Total 0.5 mg/dL (0.0-1.0); Blood Urea Nitrogen 7 mg/dL (9-16); C Reactive Protein 0.73 mg/dL (< or = 0.50); Calcium 9.2 mg/dL (8.4-10.2); Carbon Dioxide 26 mmol/L (22-29); Chloride 105 mmol/L (96-108); Cholesterol 172 mg/dL (<200); Estimated Glomerular Filt Rate > 60; Glucose Random 88 mg/dL (60-115); HDL Cholesterol 81 mg/dL (>40); LDL Cholesterol Calculated 82 mg/dL (<100); Potassium 3.8 mmol/L (3.3-5.1); Sodium 139 mmol/L (135-145); Total Protein 7.5 g/dL (6.5-8.0); Triglycerides 48 mg/dL (<150)
[2024-09-12 11:29] LABS: Erythrocyte Sedimentation Rate 7 MM/HR (0-20)
[2024-09-14 09:44] LABS: Complement C3 118 mg/dL (83-193)
== END 2024-09-12 09:01 | disposition home or self-care (01) ==
LOC: HO.LAB 09:00
PROVIDERS: Absent Provider Student in an Organized Health Care Education/Training Program; PCP Internal Medicine; Visit Provider Internal Medicine
DX: I25.10 Atherosclerotic heart disease of native coronary artery without angina pectoris (principal); M32.9 Systemic lupus erythematosus, unspecified; M05.9 Rheumatoid arthritis with rheumatoid factor, unspecified; I10 Essential (primary) hypertension; M06.9 Rheumatoid arthritis, unspecified; M19.049 Primary osteoarthritis, unspecified hand; M79.7 Fibromyalgia; Z72.0 Tobacco use
CPT/HCPCS: 36415; 80053; 80061; 85025; 85652; 86140; 86160

== ENCOUNTER 2024-09-15 14:00 | Outpatient (AMB) | payer MEDICARE, MEDICAID, SELFPAY ==
--- NOTE | 2024-09-15 14:01 | MHC.OFFVIS ---
Vital Signs 09/15/24 14:02 Height 5 ft 3 in Weight 135 lb 9.349 oz BMI 24.0 BP 142/90 H Blood Pressure Location Lt brachial Position Sitting Pulse 75 Pulse Source Pulse Oximeter Pulse Oximetry (%) 96 Oxygen Delivery Method Room Air Intake Visit Reasons: COPD Allergies Penicillins [PENICILLINS] Allergy (Intermediate, Verified 09/15/24 14:06) RASH/HIVES dexamethasone Allergy (Verified 09/15/24 14:06) Eye Swelling adalimumab [From Humira] Adverse Reaction (Intermediate, Verified 09/15/24 14:06) Chest Pain HPI Comments Details: The patient is a 59 year woman with known history of tobacco dependency who apparently underwent a kyphoplasty for compression fractures back in September 2022. After the procedure the patient developed significant shortness of breath and chest discomfort. She did undergo a CTA at [email or web address] which I personally reviewed demonstrating a left pulmonary cement emboli. The patient was treated initially was her outcome for about a month. Then she was taking off. She has noticed increasing shortness of breath with minimal activity moderate severity. Also developing chest discomfort. She continues to smoke cigarettes. We did talk about the importance of her quitting. We did talk about the findings on the CT scan also demonstrating pulmonary nodules that need close follow-up. And a brief walking oximetry the patient maintain a pulse ox of 98% which is reassuring and the heart rate was stable. Will plan to get blood works including a D-dimer at this time. If the D-dimer is elevated will go ahead and request a CTA to rule out thromboembolic disease. We know that that cement can be thrombogenic and can increase the risk of clotting. 01/24/2023 the patient is here for pulmonary follow-up visit. Overall the patient has been doing well. She is working on quitting smoking altogether. She is using the patch. The patient still having some dyspnea on exertion mild in severity. Overall doing better. She did have blood work during the last visit and she did have an elevated D-dimer therefore she underwent a CTA. She still had the area of residual cement within the pulmonary vasculature on the left hemithorax but otherwise no evidence of any thromboembolic disease. The patient's ground-glass opacities have subsided the patient also has pulmonary nodules some of them have improved as well. She will need some degree follow-up for the pulmonary nodule specially with high risk with her smoking history. She also has significant coronary artery disease that is described as moderately severe calcifications of the coronary arteries. Patient does have dyspnea on exertion and has complained of some chest pressure at times. Therefore I will have her undergo an EKG and also a stress test. Patient may benefit from Cardiology consultation if any abnormalities noted. 07/18/2023 the patient is here for a pulmonary follow-up visit. Overall the patient has been doing fairly well from a respiratory status. She does complaint of back pain. Been bothering her significant amount. She is going to be evaluated for sciatica soon. In the meantime we did review her CT scan of the chest that she had back in November 2022 demonstrating the persistence amount of her vessels secondary to her kyphoplasty. In addition to that underlying pulmonary nodules. She is a high-risk patient because of her smoking history. The patient will need to have a repeat CT scan in a year from her last 1 was be November 2023. she will continue with current respiratory therapy. Will follow-up in December after her CT scan. 01/21/2024 the patient is here for a pulmonary follow-up visit. Overall the patient has been doing okay. She has been developing worsening chest congestion. Also some chest tightness. In addition to that her arthritis has been more active. She had been on biologic therapy for her rheumatoid arthritis and then switched over to methotrexate. She has been on methotrexate now just for several weeks. Still not controlling her arthritis. We did talk about methotrexate be in an excellent medication for rheumatoid arthritis. Although the patient is aware that in some cases it can result in worsening adverse pulmonary symptoms. She did have a CT scan in November which is personally reviewed. I do not believe she was on the methotrexate done. She had a slight area of ground-glass opacity. She also has evidence of chronic bronchitis. We are going to go ahead and treat her for bronchitis with doxycycline. She is going to try to provide us with a sputum culture. In the meantime the patient also has some wheezing and will place her on low dose prednisone taper to see if we can provide some relief. Will monitor closely her symptoms. If the patient continues to have worsening cough, will consider additional imaging at that point. To make sure that she has not developing any adverse effects from the medication. She continues with respiratory therapy. Will follow-up until 3 months. If she does not worsening symptoms prior to this she will call for an earlier assessment. 04/28/2024 the patient is here for a pulmonary follow-up visit. The patient continues to struggle with her breathing. She has still having significant chest congestion shortness breath and chest tightness. She does not feel like the Breo has been helping. She did see her primary care doctor recently and she was placed on another course of antibiotics and prednisone. She felt better and then she stopped the prednisone. Once she stopped the prednisone her arthritis became very active. Therefore she started small dose again. She has also been cutting down the smoking. She is only smoking about 2 cigarettes a day. She needs to quit altogether. She is wanting to try the Nicorette gum. The patient is also following closely with Rheumatology. He again looked at her CT scan of the chest demonstrating some evidence of bronchitis. The patient also has pulmonary nodules. She will need to have follow-up. But at this point she does not need any additional imaging at this time. Will go ahead and treat her effectively with maximizing her respiratory therapy, started her on azithromycin 3 times a week. The patient may also be a good candidate for Daliresp to minimize her prednisone use in to improve her chronic bronchitis symptoms. She needs to be careful because she does not have too much weight to lose. If she notices significant weight loss then will have to either decrease it or stop it. The patient also monitor for any GI symptoms. 07/09/2024 the patient is here for pulmonary follow-up visit. Overall the patient has been doing fair. She has significant arthritic bodies and significant swelling of her small joints due to her rheumatoid arthritis. She has been on the methotrexate 20 mg weekly and also has been under folic acid. Seems like it does help but not enough. She also has osteoporosis making it difficult to place her on prednisone. But at this time she looks extremely uncomfortable and I will send her some prednisone for her to taper down. The patient also has been having worsening respiratory symptoms. She finds that the azithromycin has been helpful although it does not help her throughout. Therefore will try to increase the dose of the 500 mg dose to see if this does more effective. If it does not work she can always call and we can think about another option. The patient continues with respiratory therapy and she does use it regularly. She also continues on the Daliresp. Which will continue for now as well. Therefore, the patient will try the additional medicines and will follow-up in a couple months and see there is any progress. She has any worsening issues she will call for an earlier assessment. 09/15/2024 the patient is here for a pulmonary follow-up visit. Overall she is doing better from a respiratory status. The addition of the azithromycin has been affecting beneficial. She did have an EKG which was normal. She also had a CTA demonstrating a single-vessel disease with 25% obstruction of the RCA. She will follow-up with cardiology. In the meantime the patient did have a CT scan of the chest back in 12/09/2023 which I personally reviewed demonstrating a 6 mm pulmonary nodule. She will need to have a repeat CT scan sometime in November of 2024. The patient continues to smoke so therefore she is high risk for cancer. In the meantime the patient continues to struggle with her arthritis. 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 The patient also has been struggling with her smoking. She has been finding of the Nicorette gum helpful. Although she needs more. Will go ahead and place her on a small patch of 7 mg and also she can do the Nicorette gum as needed. She will continue with the current respiratory regimen. She seems to be tolerating the medicines well. Will follow up sometime in December after her CT scan to address her 6 mm pulmonary nodule. [facility] Medical History (Updated 07/28/24 @ 13:07 by Pito Sahni MD) Chest pain Atypical chest pain Bronchitis Hx of nephrolithotomy with removal of calculi Swelling of finger joint of right hand Swelling of finger joint of left hand Hypocalcemia Coronary artery calcification seen on CAT scan Dyspnea Pulmonary nodules COPD (chronic obstructive pulmonary disease) Pulmonary emboli Urinary urgency Hx of hemorrhoids Seropositive rheumatoid arthritis Surgical History Hx of tubal ligation Hx of hand surgery Hx of parathyroidectomy Hx of kyphoplasty History of back surgery History of esophagogastroduodenoscopy (EGD) Hx of colonoscopy Family History Father Cancer Mother Colon cancer HTN (hypertension) Diabetes Breast cancer Brother Lupus HTN (hypertension) Kidney transplanted Sister HTN (hypertension) Cancer Liver transplanted Other FH: cancer FH: mental illness Social History Household Members: None Housing: House Alcohol intake: former Patient Tobacco Use Status: Current everyday Tobacco user Tobacco use type: Cigarette Cigarettes Per Day: 4 Years Smoked: 43 Review of Systems Const Denies fatigue, Denies fever(s), Denies night sweats, Denies poor appetite and Denies weight loss Eyes Details: glasses Reports requires corrective lenses ENT Denies dysphagia Card Denies chest pain and Reports dyspnea on exertion Resp Reports chest congestion, Reports cough, Reports dyspnea on exertion and Reports wheezing GI Denies dysphagia Musc Reports abnormal gait, Reports back pain, Reports myalgias, Reports arthralgias, Reports joint swelling and Reports limited range of motion Skin/Breast Denies pruritus, Denies lesions, Denies rash and Denies jaundice Neuro Denies Abnormal speech present and Reports abnormal gait Psych Reports mood swings Endo Denies fatigue Mason/Lymph Denies as per HPI, Denies easy bleeding and Denies easy bruising Aller/Immun Reports wheezing Physical Exam Vital Signs: Last Vital Signs Pulse 75 09/15/24 14:02 BP 142/90 H 09/15/24 14:02 Pulse Ox 96 09/15/24 14:02 Oxygen Delivery Method Room Air 09/15/24 14:02 BMI result Body Mass Index 24.0 Const General: cooperative, no acute distress, alert and awake Nutritional Appearance: well nourished Orientation/consciousness: patient oriented x3 Limitations: no limitations HEENT Head: Yes normal to inspection and Yes atraumatic Neck Neck: Yes normal visual inspection, Yes full ROM and Yes no lymphadenopathy Chest Chest palpation & inspection: normal inspection of the chest Resp Effort & Inspection: normal respiratory effort and No prolonged expiratory phase Auscultation: no rhonchi, no wheezes and diminished lung sounds Cardio Rate: regular rate Rhythm: regular rhythm GI Palpation (GI): Soft to palpation General: Yes no CVA tenderness Back/Spine/Pelvis Back: no CVA tenderness Neuro General: patient oriented x3 and moves all extremities Speech: No Abnormal speech present Extrem Right upper extremity: Extremity exam: right hand Details: tenderness and swelling Left upper extremity: hand Details: tenderness and swelling Assessment & Plan Assessment & Plan (1) COPD (chronic obstructive pulmonary disease): Code(s): J44.9 - Chronic obstructive pulmonary disease, unspecified Category: Medical Qualifiers: COPD type: COPD with acute lower respiratory infection Qualified Code(s): J44.0 - Chronic obstructive pulmonary disease with (acute) lower respiratory infection (2) Pulmonary nodules: Code(s): R91.8 - Other nonspecific abnormal finding of lung field Category: Medical (3) Coronary artery calcification seen on CAT scan: Code(s): I25.10 - Atherosclerotic heart disease of [place] coronary artery without angina pectoris Category: Medical (4) Pulmonary emboli: Code(s): I26.99 - Other pulmonary embolism without acute cor pulmonale Category: Medical Qualifiers: Acute cor pulmonale presence: unspecified Chronicity: chronic Pulmonary embolism type: unspecified Qualified Code(s): I27.82 - Chronic pulmonary embolism (5) Seropositive rheumatoid arthritis: Comment: +RF+CCP dx 2017 Methotrexate: prior to 2017- October 2021 effective per patient Leflunomide: October 2022 DC 12/2023 not effective Humira 2023 DC 12/2023 ineffective MTX restarted 12/2023 Code(s): M05.9 - Rheumatoid arthritis with rheumatoid factor, unspecified Category: Medical Plan [facility] Azithromycin 500mg MWF, EKG normal Daliresp taper Prednisone BISI as needed Smoking cessation: nicorette gum and low dose patch nasonex nasal spray CT chest 11/2024 F/U December 2024 Orders: Orders CT chest wo IV con 12/14/24 R91.8 - Other nonspecific abnormal finding of lung field Medications: New nicotine (Nicoderm CQ) 1 patch transdermal Q24H 28 ea 10RF 28 days prednisone 10 mg PO DAILY 30 tabs 1RF 30 days Refilled nicotine (polacrilex) (Nicorette) 4 mg buccal Q4H PRN 110 ea 1RF nicotine cravings Coding Level of Care Code Est Pt Level 4 (45238) Complex EM visit Add On G2211 Diagnoses Chronic obstructive pulmonary disease with acute lower respiratory infection J44.0 COPD type: COPD with acute lower respiratory infection Pulmonary nodules R91.8 Coronary artery calcification seen on CAT scan I25.10 Chronic pulmonary embolism, unspecified pulmonary embolism type, unspecified whether acute cor pulmonale present I27.82 Acute cor pulmonale presence: unspecified Chronicity: chronic Pulmonary embolism type: unspecified Seropositive rheumatoid arthritis M05.9 Time Spent (min) 17
[2024-09-15 14:02] VITALS: BP 142/90; PULSE 75; O2SAT 96; BMI 24.0
--- OUTSIDE RECORDS SUMMARY | 2024-09-15 17:32 | XMS_ITS | Clinical Summary ---
Author Organization [facility] Address [address] [place] [address] Phone Care Team Providers Care Carport Erector Name Role Phone Jackie Watt MD Primary [...] Insurance [place] ([id number]) [place] ([id number]) Care Teams Carport Erector Relationship Specialty Start Date End Date Jackie Watt MD [address] [place] [address] [address] [place], [place] PCP - General 08/01/20
== END 2024-09-15 14:28 | disposition home or self-care (01) ==
PROVIDERS: PCP Internal Medicine; Visit Provider Hospitalist
DX: J44.0 Chronic obstructive pulmonary disease with (acute) lower respiratory infection (principal); R91.8 Other nonspecific abnormal finding of lung field; I25.10 Atherosclerotic heart disease of native coronary artery without angina pectoris; I27.82 Chronic pulmonary embolism; M05.9 Rheumatoid arthritis with rheumatoid factor, unspecified
CPT/HCPCS: 99214; G2211

== ENCOUNTER → 2024-09-15 14:00 | Outpatient (BNVA) | payer MEDICARE, MEDICAID, SELFPAY | PROVIDERS: PCP Internal Medicine; Visit Provider Hospitalist | DX: J44.0 Chronic obstructive pulmonary disease with (acute) lower respiratory infection (principal); R91.8 Other nonspecific abnormal finding of lung field; I25.10 Atherosclerotic heart disease of native coronary artery without angina pectoris; I27.82 Chronic pulmonary embolism; M05.9 Rheumatoid arthritis with rheumatoid factor, unspecified; F17.210 Nicotine dependence, cigarettes, uncomplicated | CPT/HCPCS: 99212 ==

== ENCOUNTER 2024-10-02 13:51 | Outpatient (AMB) | payer MEDICARE, MEDICAID, SELFPAY ==
[2024-10-02 13:55] VITALS: BP 170/90; PULSE 74; BMI 24.1
--- NOTE | 2024-10-02 13:55 | MHC.OFFVIS ---
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 Allergies Penicillins [PENICILLINS] Allergy (Intermediate, Verified 10/02/24 13:59) RASH/HIVES dexamethasone Allergy (Verified 10/02/24 13:59) Eye Swelling adalimumab [From Humira] Adverse Reaction (Intermediate, Verified 10/02/24 13:59) Chest Pain Medication List - Last Reconciled 10/02/24 by HERMINIA Medrano albuterol sulfate mg inhalation albuterol sulfate 90 mcg/actuation 2 inhalations inhalation QID aspirin (Adult Low Dose Aspirin) 81 mg PO DAILY atorvastatin 80 mg PO DAILY azithromycin 500 mg PO QWEEK 28 days bisacodyl 10 mg (2 x 5 mg) PO BEDTIME dagdogzril-amstejui-alubxivftx 160-9-4.8 mcg/actuation (Breztri Aerosphere) 2 inhalations inhalation BID buspirone 15 mg PO BID cetirizine 10 mg PO DAILY cholecalciferol (vitamin D3) 50 mcg PO DAILY diclofenac sodium 1% 1 - 2 grams topical BID dicyclomine 20 mg PO QID ezetimibe 10 mg PO DAILY folic acid 1 mg PO DAILY isosorbide mononitrate ER 30 mg PO DAILY lidocaine 5% 2 patches topical DAILY linaclotide (Linzess) 290 mcg PO QAM 30 days qomche-pbmgiivv-yboxlmt 24,000-76,000 -120,000 unit (Creon) 2 caps PO BID 30 days lorazepam 1 mg PO BID lurasidone mg PO DAILY methotrexate sodium 20 mg (8 x 2.5 mg) PO QWEEK metoprolol succinate ER 100 mg PO DAILY mometasone 50 mcg/actuation intranasal DAILY montelukast 10 mg PO DAILY naloxone 4 mg/actuation 0 sprays intranasal nebulizer and compressor ([employer] Aerosol Delivery System) As directed nicotine (Nicoderm CQ) 1 patch transdermal Q24H 28 days nicotine (polacrilex) (Nicorette) 4 mg buccal Q4H PRN nifedipine ER 120 mg (2 x 60 mg) PO DAILY 90 days nortriptyline 10 mg PO BEDTIME oxycodone mg PO oxycodone ER (OxyContin) 30 mg PO BID polyethylene glycol 3350 17 grams PO DAILY prednisolone acetate 1% drps ophthalmic (eye) prednisolone sodium phosphate mg PO prednisolone sodium phosphate mg PO prednisone 20 mg (4 x 5 mg) PO DAILY 30 days pregabalin 300 mg PO BID Procto-Med HC 2.5% (hydrocortisone) 1 appl ME BID PRN NS rabeprazole 20 mg PO BID roflumilast (Daliresp) 500 mcg PO DAILY 30 days romosozumab-aqqg (Evenity) 210 mg (2.34 mL) subcut .qmonthly simethicone 180 mg PO QID 30 days simethicone (Gas-X Extra Strength) 125 mg PO TID PRN tamsulosin (Flomax) 0.4 mg PO BEDTIME tizanidine 6 mg PO BEDTIME PRN valacyclovir 1,000 mg PO DAILY valsartan-hydrochlorothiazide 320-25 mg 1 tab PO DAILY vibegron (Gemtesa) 75 mg PO DAILY zolpidem 10 mg PO BEDTIME HPI HPI 2m follow up: Details: Brisa is a 59-year-old female with past medical history of hypertension, hyperlipidemia, rheumatoid arthritis, who recently reported chest discomfort, who underwent a CTA of the coronaries and now presents for follow-up. Today she reports that her chest discomfort has improved overall. She has been experiencing a flare of her rheumatoid arthritis and has some generalized joint pains and swelling. She has been mostly sedentary overall in the last few weeks. She ambulates with a cane. She has chronic shortness of breath which she relates to her COPD. She has had no change to her breathing recently. No PND, orthopnea or edema. No heart palpitations, lightheadedness, presyncope, syncope. Continues to smoke 3-5 cigarettes per day. Tells me she has a piece of cement that travel to her left lung post kyphoplasty. Taking all meds as directed. is present. [facility] Medical History Chest pain Atypical chest pain Bronchitis Hx of nephrolithotomy with removal of calculi Swelling of finger joint of right hand Swelling of finger joint of left hand Hypocalcemia Coronary artery calcification seen on CAT scan Dyspnea Pulmonary nodules COPD (chronic obstructive pulmonary disease) Pulmonary emboli Urinary urgency Hx of hemorrhoids Seropositive rheumatoid arthritis Surgical History Hx of tubal ligation Hx of hand surgery Hx of parathyroidectomy Hx of kyphoplasty History of back surgery History of esophagogastroduodenoscopy (EGD) Hx of colonoscopy Family History Father Cancer Mother Colon cancer HTN (hypertension) Diabetes Breast cancer Brother Lupus HTN (hypertension) Kidney transplanted Sister HTN (hypertension) Cancer Liver transplanted Other FH: cancer FH: mental illness Social History Household Members: None Housing: House Alcohol intake: former Patient Tobacco Use Status: Current everyday Tobacco user Tobacco use type: Cigarette Cigarettes Per Day: 4 Years Smoked: 43 Review of Systems Const All systems reviewed & are unremarkable except as noted in HPI and below ENT Denies dizziness Card Denies chest pain, Denies chest pain at rest, Denies chest pain with activity, Denies rapid heart rate, Denies pedal edema, Denies edema, Denies leg edema, Denies lightheadedness, Denies palpitations, Reports dyspnea, Reports dyspnea on exertion and Denies orthopnea Resp Denies cough, Reports dyspnea and Reports dyspnea on exertion GI Denies hematochezia and Denies change in stool character Musc Details: Rheumatoid arthritis flare Reports abnormal gait (uses cane), Reports limited range of motion, Denies muscle cramps, Denies muscle weakness, Denies numbness, Denies radiating pain into limb, Reports stiffness and Denies tingling Neuro Reports abnormal gait (uses cane), Denies dizziness, Denies numbness and Denies tingling Endo Denies palpitations Physical Exam Vital Signs: Last Vital Signs Pulse 74 10/02/24 13:55 BP 170/90 H 10/02/24 13:55 BMI result Body Mass Index 24.1 Const General: cooperative, healthy appearing, comfortable and no acute distress Orientation/consciousness: patient oriented x3 Neck Neck: Yes normal visual inspection Resp Effort & Inspection: normal respiratory effort Auscultation: clear to auscultation bilaterally, no rales, no rhonchi and no wheezes Cardio Rate: regular rate Rhythm: regular rhythm Heart sounds: S1 normal heart sound present, S2 normal heart sound present, no gallops, no murmurs and no rubs Neuro General: patient oriented x3 Extrem Other: swelling of finger joints noted General: Yes normal to inspection, No no pedal edema and No calf tenderness Psych Appearance: grossly normal Mental Status: mental status grossly normal Speech and movement: Normal speech and movement present Assessment & Plan Assessment & Plan (1) Chest pain: Code(s): R07.9 - Chest pain, unspecified Category: Medical Qualifiers: Chest pain type: unspecified Qualified Code(s): R07.9 - Chest pain, unspecified Plan: History exertional shortness of breath and chest tightness when anxious or when in stressful situation. Cardiac risk factors of rheumatoid arthritis, hypertension, hyperlipidemia, smoking, sedentary. Pharmacological nuclear stress test done 07/23/2023 showed normal myocardial perfusion imaging. Echocardiogram done 07/19/2023 showed EF 65%, no valve or regional wall motion abnormalities. EKG done last visit shows normal sinus rhythm with nonspecific T-wave abnormality. She then had CTA of the coronary arteries done 08/19/2024 which shows only RCA with minimal stenosis, less than 25%. Remaining vessels normal. Test results reviewed with her in detail. Diagnosis of mild nonobstructive coronary artery disease discussed. Will continue with risk factor modification. Continue aspirin, atorvastatin. Continue the isosorbide as well as metoprolol, nifedipine, valsartan/hydrochlorothiazide for good blood pressure control. Signs and symptoms of angina reviewed with her. Cardiology follow-up 6 months, sooner if needed. (2) CAD (coronary artery disease): Comment: CTA of the coronary arteries, 08/19/2024, RCA minimal stenosis less than 25%, other vessels normal. Code(s): I25.10 - Atherosclerotic heart disease of [place] coronary artery without angina pectoris Category: Medical (3) Hyperlipidemia: Code(s): E78.5 - Hyperlipidemia, unspecified Category: Medical Plan: LDL goal less than 100, ideally less than 70. On last visit her atorvastatin was increased from 40 mg daily up to 80 mg daily. She has been experiencing increased joint pain which could be related to rheumatoid arthritis versus statin use. She is going to trial reduction of atorvastatin back to 40 mg daily to see if she has some improvement in the symptom. She does have a follow-up with Rheumatology as well. Labs that were done on 09/12/2024 showed LDL 82. (4) Hypertension: Code(s): I10 - Essential (primary) hypertension Category: Medical Qualifiers: Hypertension type: primary hypertension Qualified Code(s): I10 - Essential (primary) hypertension Plan: History of hypertension. Currently on isosorbide, metoprolol, nifedipine, valsartan/heart or thiazide. Blood pressure elevated today initially 170/90, recheck done by me 158/82. She says home blood pressures do run in the 130s over 80s at times, other times higher. She is currently experiencing pain which can contribute to elevated blood pressure readings. Her isosorbide is not needed for her coronary artery disease but I will keep it on her list for her hypertension. She is pursuing RA treatment, and trialing a reduction in her statin. She will periodically check blood pressures at home and call if her systolic is running consistently greater than 140. 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 Plan Time spent on chart review, documentation, interview and assessment Coding Level of Care Code Est Pt Level 4 (36326) Complex EM visit Add On G2211 Diagnoses Chest pain, unspecified type R07.9 Chest pain type: unspecified CAD (coronary artery disease) I25.10 Hyperlipidemia E78.5 Primary hypertension I10 Hypertension type: primary hypertension Time Spent (min) 30
--- OUTSIDE RECORDS SUMMARY | 2024-10-02 15:36 | XMS_ITS | Clinical Summary ---
Author Organization [facility] Address [address] [place] [address] Phone Care Team Providers Care Wire Frame Maker Name Role Phone Jackie Watt MD Primary Care Provider [phone] Allergies Active Allergy Reactions Criticality Noted Date [...] Insurance [place]ICA[place] ([id number]) [place] ([id number]) Care Teams Wire Frame Maker Relationship Specialty Start Date End Date Jackie Watt MD [address] [place] [address] [address] [place], [place] PCP - General 08/01/20
== END 2024-10-02 14:42 | disposition home or self-care (01) ==
LOC: HO.HCS 13:52
PROVIDERS: PCP Internal Medicine; Visit Provider Nurse Practitioner Family
DX: R07.9 Chest pain, unspecified (principal); I25.10 Atherosclerotic heart disease of native coronary artery without angina pectoris; E78.5 Hyperlipidemia, unspecified; I10 Essential (primary) hypertension
CPT/HCPCS: 99214; G2211

== ENCOUNTER → 2024-10-02 13:51 | Outpatient (BNVA) | payer MEDICARE, MEDICAID, SELFPAY | PROVIDERS: PCP Internal Medicine; Visit Provider Nurse Practitioner Family | DX: I10 Essential (primary) hypertension (principal); I25.10 Atherosclerotic heart disease of native coronary artery without angina pectoris; E78.5 Hyperlipidemia, unspecified; R07.9 Chest pain, unspecified; F17.210 Nicotine dependence, cigarettes, uncomplicated | CPT/HCPCS: 99212 ==

== ENCOUNTER 2024-10-06 12:22 | Outpatient (AMB) | payer MEDICARE, MEDICAID, SELFPAY ==
--- NOTE | 2024-10-06 12:32 | A.OFFVIS_ITS ---
Vital Signs 10/06/24 12:33 Height 5 ft 3 in Weight 131 lb 6.328 oz BMI 23.3 BP 138/82 Blood Pressure Location Lt brachial Position Sitting Pulse 84 Pulse Source Pulse Oximeter Pulse Oximetry (%) 97 Oxygen Delivery Method Room Air Intake Visit Reasons: RA Intake Note: Patient last seen by Doctor Freddy Burden on 06/11/24. Presents for RA follow up and test results. Patient states she is in a great deal of pain today, feels she may need more medication management for her RA. Allergies Penicillins [PENICILLINS] Allergy (Intermediate, Verified 10/06/24 12:36) RASH/HIVES dexamethasone Allergy (Verified 10/06/24 12:36) Eye Swelling adalimumab [From Humira] Adverse Reaction (Intermediate, Verified 10/06/24 12:36) Chest Pain Medication List - Last Reconciled 10/06/24 by Ruby Keen MD albuterol sulfate mg inhalation albuterol sulfate 90 mcg/actuation 2 inhalations inhalation QID aspirin (Adult Low Dose Aspirin) 81 mg PO DAILY atorvastatin 80 mg PO DAILY azithromycin 500 mg PO QWEEK 28 days bisacodyl 10 mg (2 x 5 mg) PO BEDTIME [id number]-ijuedlei-bsgyuyxbvz 160-9-4.8 mcg/actuation (Breztri Aerosphere) 2 inhalations inhalation BID buspirone 15 mg PO BID cetirizine 10 mg PO DAILY cholecalciferol (vitamin D3) 50 mcg PO DAILY diclofenac sodium 1% 1 - 2 grams topical BID dicyclomine 20 mg PO QID ezetimibe 10 mg PO DAILY folic acid 1 mg PO DAILY isosorbide mononitrate ER 30 mg PO DAILY lidocaine 5% 2 patches topical DAILY linaclotide (Linzess) 290 mcg PO QAM 30 days fimzlv-hwnyegjb-rzsqowf 24,000-76,000 -120,000 unit (Creon) 2 caps PO BID 30 days lorazepam 1 mg PO BID lurasidone mg PO DAILY methotrexate sodium 20 mg (8 x 2.5 mg) PO QWEEK metoprolol succinate ER 100 mg PO DAILY mometasone 50 mcg/actuation intranasal DAILY montelukast 10 mg PO DAILY naloxone 4 mg/actuation 0 sprays intranasal nebulizer and compressor (Vios Aerosol Delivery System) As directed nicotine (Nicoderm CQ) 1 patch transdermal Q24H 28 days nicotine (polacrilex) (Nicorette) 4 mg buccal Q4H PRN nifedipine ER 120 mg (2 x 60 mg) PO DAILY 90 days nortriptyline 10 mg PO BEDTIME oxycodone mg PO oxycodone ER (OxyContin) 30 mg PO BID polyethylene glycol 3350 17 grams PO DAILY prednisolone acetate 1% drps ophthalmic (eye) prednisolone sodium phosphate mg PO prednisolone sodium phosphate mg PO pregabalin 300 mg PO BID Procto-Med HC 2.5% (hydrocortisone) 1 appl NM BID PRN NS rabeprazole 20 mg PO BID roflumilast (Daliresp) 500 mcg PO DAILY 30 days romosozumab-aqqg (Evenity) 210 mg (2.34 mL) subcut .qmonthly simethicone 180 mg PO QID 30 days simethicone (Gas-X Extra Strength) 125 mg PO TID PRN tamsulosin (Flomax) 0.4 mg PO BEDTIME tizanidine 6 mg PO BEDTIME PRN valacyclovir 1,000 mg PO DAILY valsartan-hydrochlorothiazide 320-25 mg 1 tab PO DAILY vibegron (Gemtesa) 75 mg PO DAILY zolpidem 10 mg PO BEDTIME HPI Comments Details: Patient is a 59-year-old female with COPD, hypertension complicated by coronary artery disease, hyperlipidemia, hyperparathyroidism, GERD, osteoporosis, fibromyalgia and seropositive rheumatoid arthritis/likely overlap syndrome here today for follow up Interval History: Patient last seen 06/11/[address] Burden. At that time she was having joint pain especially involving her hands as well as her toes. This pain required her to take 20 mg of prednisolone daily. She also complained of worsening of the burning pain on the outer aspect of her legs for which she is following up with Neurology for. The exam at that time was more consistent with hand osteoarthritis and no changes were made to her medication. Today patient has been having worsening of her underlying disease. With a flare involving her hands, knees, elbows and shoulders. Rheumatologic History: Seropositive rheumatoid arthritis +RF+CCP dx 2018 Methotrexate: prior to 2017- October 2021 effective per patient Leflunomide: October 2022 DC 12/2023 not effective Hum2023 DC 12/2023 ineffective MTX restarted 12/2023 Overlap syndrome Few dilated loops on nailfold capillaroscopy. History suggestive of Raynaud's. Mild interstitial changes on CT chest. Mild esophageal dysmotility on barium swallow. Comprehensive serologies showed positive RENETTA, mildly positive anti Scl 70 antibody as well as positive PL 7 antibody. On exam there is no skin thickening, no muscle weakness on exam. Current Rheumatology Medication(s): Methotrexate 20 mg weekly Folic acid 1 mg daily Evenity (prescribed by Dr. Queen endocrinology) [facility] Medical History Chest pain Atypical chest pain Bronchitis Hx of nephrolithotomy with removal of calculi Swelling of finger joint of right hand Swelling of finger joint of left hand Hypocalcemia Coronary artery calcification seen on CAT scan Dyspnea Pulmonary nodules COPD (chronic obstructive pulmonary disease) Pulmonary emboli Urinary urgency Hx of hemorrhoids Seropositive rheumatoid arthritis Surgical History Hx of tubal ligation Hx of hand surgery Hx of parathyroidectomy Hx of kyphoplasty History of back surgery History of esophagogastroduodenoscopy (EGD) Hx of colonoscopy Family History Father Cancer Mother Colon cancer HTN (hypertension) Diabetes Breast cancer Brother Lupus HTN (hypertension) Kidney transplanted Sister HTN (hypertension) Cancer Liver transplanted Other FH: cancer FH: mental illness Social History Household Members: None Housing: House Alcohol intake: former Patient Tobacco Use Status: Current everyday Tobacco user Tobacco use type: Cigarette Cigarettes Per Day: 4 Years Smoked: 43 Review of Systems Const Details: Review of Systems Constitutional: Denies fever, chills, weight loss ENT: Denies vision changes, eye pain or eye redness, dental caries, dry mouth GI: Denies nausea, vomiting, diarrhea, abdominal pain, change in BM Pulm: Denies SOB, BYRD, hemoptysis, wheezing Cards: Denies chest pain, palpitations Skin: Denies Raynaud's, rash, nail changes, photosensitivity, 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 Well appearing and in no apparent painful distress HEENT Conjunctiva and sclera clear. ?Pupils equal round and reactive to light. ?No lymphadenopathy. ? CHEST/RESPIRATORY SYSTEM Normal respiratory effort and able to speak in complete sentences. ?Clear to auscultation bilaterally. ?No crackles, rales, rhonchi, wheezes heard. CARDIAC SYSTEM Regular rate and rhythm. ?S1 and S2 heard no murmurs. ?Radial pulses intact bilaterally MSK Hands: ?Unable to make a fist. Hands held in mild flexion with obvious swelling warmth and tenderness to palpation of several joints of the MCPs, PIPs and even DIPs. Wrists: ?Diffuse raise of motion secondary to pain. Swelling to bilateral wrists with tenderness to palpation and warmth. Elbows: Full range of motion. But pains at the extremes of motion. Tenderness to palpation bilaterally. Shoulders: Unable to do active range of motion due to pain. Hips: Examined in chair as patient not able to sit on the table. Unable to fully examined the hips. Knees: ?Full range of motion. ?Tenderness to palpation of bilateral knee joints. Ankles: Full range of motion. ?No tenderness, swelling, increased warmth or erythema.? Feet: ?Positive squeeze test with tenderness to palpation of several MTPs. Tender points:?No tenderness to palpation of the bilateral trapezius, supraspinatus, greater trochanters, anterior costochondral junctions, bilateral gluteal areas, bilateral suboccipital muscle insertions SKIN Skin intact without rashes. Results Reviewed Results Reviewed: Laboratory Tests 07/21/24 09/12/24 14:06 09:21 WBC 6.9 RBC 4.27 Hgb 12.4 Hct 35.8 L Plt Count 151 L ESR 7 Sodium 139 Potassium 3.8 Chloride 105 Carbon Dioxide 26 BUN 7 L Creatinine 0.67 Total Bilirubin 0.5 AST 28 ALT 16 Alkaline Phosphatase 94 C-Reactive Protein < 0.10 0.73 H Immunology labs 08/30/21 02/26/24 09/12/24 13:10 16:45 09:21 RENETTA Screen NEGATIVE Mi-2-Beta Ab [address]-7 Antibody 41 H Scl-70 Scleroderma Ab 21 H Complement C3 57 L 118 Complement C4 12 L 20 Infectious serologies 10/29/22 15:57 Hepatitis A IgM Ab Nonreactive Hep Bs Antigen Negative Hep Bs Antibody NONREACTIVE Hep B Core Total Ab Nonreactive Hepatitis C Ab (EIA) Nonreactive TB Test (T-Spot) Com Negative Assessment & Plan Assessment & Plan (1) Seropositive rheumatoid arthritis: Comment: +RF+CCP dx 2018 Methotrexate: prior to 2018- October 2021 effective per patient Leflunomide: October 2022 DC 12/2023 not effective Humira 2023 DC 12/2023 ineffective MTX restarted 12/2023 Code(s): M05.9 - Rheumatoid arthritis with rheumatoid factor, unspecified Category: Medical Plan: #Seropositive RA/Overlap syndrome Patient is a 59-year-old female with seropositive rheumatoid arthritis and likely connective tissue disease overlap syndrome based on positive RENETTA, positive PL 7 and mi 2 beta, Scl 70 and history of low complements which have now resolved. She also has a history of Raynaud's, ulcers and early ILD changes on CT done about a year ago. Today patient is definitely in a flare of her underlying arthritis as evidenced by synovitis involving almost every joint in her body. Despite methotrexate monotherapy. Given her overlap syndrome and her early ILD changes on CT scan the best medication moving forward would be tocilizumab which has shown good efficacy in RA as well as shown efficacy in ILD related to scleroderma/connective tissue disease. I also had a long discussion with the patient and the patient's daughter about her smoking. I explained to her that the smoking makes her rheumatoid arthritis that much more difficult to treat due to the citrullination of proteins with in the lungs which again we will then travel to the joint and insight inflammation. We will also start a prednisone taper. She is to continue the methotrexate at her current dose. Plan - Start Actemra 162mg SC every 2 weeks - Continue methotrexate 20mg weekly, split dosing - Folic acid 1mg daily, consider increasing if patient continues to complain of ulcers - Prednisone 15 mg for 2 weeks then 10 mg for 2 weeks and 5 mg for 2 weeks then stop - Labs today: CBC, CMP, ESR, CRP, hepatitis panel, T spot, C3, C4, double- stranded DNA, lipid panel - RTC 3 months - Labs before visit: CBC, CMP, ESR, CRP, lipid panel, C3, C4 (2) Osteoporosis: Comment: History of hyper parathyroidism and fragility fractures Code(s): M81.0 - Age-related osteoporosis without current pathological fracture Category: Medical Qualifiers: Osteoporosis type: age-related Presence of current pathological fracture: with current pathological fracture Encounter type: subsequent encounter Fracture healing: with routine healing Qualified Code(s): M80.00XD - Age-related osteoporosis with current pathological fracture, unspecified site, subsequent encounter for fracture with routine healing Plan: #Osteoporosis Patient with osteoporosis and a history of fragility fractures currently on Evenity as per endocrinology. (3) Encounter for monitoring tocilizumab therapy: Code(s): Z51.81 - Encounter for therapeutic drug level monitoring; Z79.620 - intermediate (current) use of immunosuppressive biologic Plan: #Long-term Use of Tocilizumab Discussed the risks and benefits of tocilizumab with the management of this patient's rheumatic condition. ? 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 Limit alcohol and avoid Bactrim ? Monitoring: ?CBC, BMP, LFTs every 3-4 months and hepatitis serologies as needed Plan I spent 45 minutes reviewing the record and labs, taking a history, examining the patient, discussing the treatment plan, ordering diagnostic work up, answered questions from the patient and the daughter and documenting in the medical record Orders: Orders C Reactive Protein Today M05.9 - Rheumatoid arthritis with rheumatoid factor, unspecified Erythrocyte Sedimentation Rate Today M05.9 - Rheumatoid arthritis with rheumatoid factor, unspecified Lipid Panel Today M05.9 - Rheumatoid arthritis with rheumatoid factor, unspecified Complement C4 Today M35.1 - Other overlap syndromes Complete Blood Count Auto Diff 3 Months M05.9 - Rheumatoid arthritis with rheumatoid factor, unspecified Comprehensive Met. Panel 3 Months M05.9 - Rheumatoid arthritis with rheumatoid factor, unspecified Complement C3 3 Months M05.9 - Rheumatoid arthritis with rheumatoid factor, unspecified Complement C4 3 Months M05.9 - Rheumatoid arthritis with rheumatoid factor, unspecified Erythrocyte Sedimentation Rate 3 Months M05.9 - Rheumatoid arthritis with rheumatoid factor, unspecified Complete Blood Count Auto Diff Today M05.9 - Rheumatoid arthritis with rheumatoid factor, unspecified Comprehensive Met. Panel Today M05.9 - Rheumatoid arthritis with rheumatoid factor, unspecified Hepatitis A,B,C Profile Today M05.9 - Rheumatoid arthritis with rheumatoid factor, unspecified T Spot TB Today M05.9 - Rheumatoid arthritis with rheumatoid factor, unspecified Complement C3 Today M35.1 - Other overlap syndromes Anti DNA DS Antibody Today M35.1 - Other overlap syndromes C Reactive Protein 3 Months M05.9 - Rheumatoid arthritis with rheumatoid factor, unspecified Anti DNA DS Antibody 3 Months M05.9 - Rheumatoid arthritis with rheumatoid factor, unspecified Lipid Panel 3 Months M05.9 - Rheumatoid arthritis with rheumatoid factor, unspecified Creatine Kinase Total Today M05.9 - Rheumatoid arthritis with rheumatoid factor, unspecified Aldolase Today M05.9 - Rheumatoid arthritis with rheumatoid factor, unspecified Medications: New tocilizumab-aazg 162 mg (0.9 mL) subcut Q2W 1.8 mL 5RF M05.9 - Rheumatoid arthritis with rheumatoid factor, unspecified prednisone Take 3 tablets daily for 14 days then 2 tablets for 14 days then 1 tablet for 14 days 5 mg PO DIRECTED 84 tabs 0RF M05.9 - Rheumatoid arthritis with rheumatoid factor, unspecified Changed From methotrexate sodium 20 mg (8 x 2.5 mg) PO QWEEK 102 tabs 0RF M05.9 - Rheumatoid arthritis with rheumatoid factor, unspecified To methotrexate sodium 20 mg (8 x 2.5 mg) PO QWEEK 90 days 104 tabs 1RF M05.9 - Rheumatoid arthritis with rheumatoid factor, unspecified Refilled folic acid 1 mg PO DAILY 90 tabs 1RF M05.9 - Rheumatoid arthritis with rheumatoid factor, unspecified Coding Level of Care Code Est Pt Level 5 (28354) Complex EM visit Add On G2211 Diagnoses Seropositive rheumatoid arthritis M05.9 Age-related osteoporosis with current pathological fracture with routine healing, subsequent encounter M80.00XD Osteoporosis type: age-related Presence of current pathological fracture: with current pathological fracture Encounter type: subsequent encounter Fracture healing: with routine healing Encounter for monitoring tocilizumab therapy Z51.81; Z79.620 Encounter for methotrexate monitoring Z51.81; Z79.631
[2024-10-06 12:33] VITALS: BP 138/82; PULSE 84; O2SAT 97; BMI 23.3
--- OUTSIDE RECORDS SUMMARY | 2024-10-06 14:39 | XMS_ITS | Clinical Summary ---
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
== END 2024-10-06 13:46 | disposition home or self-care (01) ==
LOC: HO.RHE 12:23
PROVIDERS: PCP Internal Medicine; Visit Provider Student in an Organized Health Care Education/Training Program
DX: M05.79 Rheumatoid arthritis with rheumatoid factor of multiple sites without organ or systems involvement (principal); M80.00XD Age-related osteoporosis with current pathological fracture, unspecified site, subsequent encounter for fracture with routine healing; Z51.81 Encounter for therapeutic drug level monitoring; Z79.620 Long term (current) use of immunosuppressive biologic; Z79.631 Long term (current) use of antimetabolite agent
CPT/HCPCS: 99215; G2211

== ENCOUNTER → 2024-10-06 12:22 | Outpatient (BNVA) | payer MEDICARE, MEDICAID, SELFPAY | PROVIDERS: PCP Internal Medicine; Visit Provider Student in an Organized Health Care Education/Training Program | DX: M05.9 Rheumatoid arthritis with rheumatoid factor, unspecified (principal); Z51.81 Encounter for therapeutic drug level monitoring; M80.00XD Age-related osteoporosis with current pathological fracture, unspecified site, subsequent encounter for fracture with routine healing; Z79.631 Long term (current) use of antimetabolite agent; Z79.620 Long term (current) use of immunosuppressive biologic | CPT/HCPCS: 99212 ==

== ENCOUNTER 2024-10-07 15:51 | Outpatient (AMB) | payer MEDICARE, MEDICAID, SELFPAY ==
--- NOTE | 2024-10-07 16:27 | AM.OFFVISNUR ---
Intake Visit Reasons: evenity #6 Allergies Penicillins [PENICILLINS] Allergy (Intermediate, Verified 10/06/24 12:36) RASH/HIVES dexamethasone Allergy (Verified 10/06/24 12:36) Eye Swelling adalimumab [From Humira] Adverse Reaction (Intermediate, Verified 10/06/24 12:36) Chest Pain Office Meds romosozumab-aqqg 210 mg/2.34 mL(105 mg/1.17 mL x2)subcutaneous syringe Performing Provider: Roddy Queen MD Performing Location: [facility] Administered by: Beatriz García RN on 10/07/24 16:27 Dose Route Admin Location Dispensed Lot Number Expiration Date [facility] Food Storeroom Clerk 210 mg subcut bilateral upper arms 2.34 mL [id number] 10/19/26 81432-749-04 [facility] Comments: Consent form signed by patient. Pt tolerated injection well. Pt denies any adverse reactions to previous injections. Assessment & Plan Assessment & Plan Orders: Orders AMB Romosozumab Injection Patient Supplied Today M80.00XD - Age-related osteoporosis with current pathological fracture, unspecified site, subsequent encounter for fracture with routine healing Medications: New romosozumab-aqqg 210 mg (2.34 mL) subcut ONCE 2.34 mL 0RF M80.00XD - Age-related osteoporosis with current pathological fracture, unspecified site, subsequent encounter for fracture with routine healing Coding
--- OUTSIDE RECORDS SUMMARY | 2024-10-07 17:41 | XMS_ITS | Clinical Summary ---
Author Organization [facility] Address [address] [place] [address] Phone Care Team Providers Care Change Management Coordinator Name Role Phone Jackie Watt MD Primary [...] Insurance [place] ([id number]) [place] ([id number]) Care Teams Change Management Coordinator Relationship Specialty Start Date End Date Jackie Watt MD [address] [place] [address] [address] [place], [place] PCP - General 08/01/20
== END 2024-10-07 16:23 | disposition home or self-care (01) ==
LOC: HO.ENCR 15:52
PROVIDERS: PCP Internal Medicine
DX: M80.00XD Age-related osteoporosis with current pathological fracture, unspecified site, subsequent encounter for fracture with routine healing (principal)

== ENCOUNTER → 2024-10-07 15:51 | Outpatient (BNVA) | payer MEDICARE, MEDICAID, SELFPAY | PROVIDERS: PCP Internal Medicine | DX: M80.00XA Age-related osteoporosis with current pathological fracture, unspecified site, initial encounter for fracture (principal) | CPT/HCPCS: 96372; J3111 ==

== ENCOUNTER 2024-10-10 09:56 | Outpatient (REF) | payer MEDICARE, MEDICAID, SELFPAY ==
[2024-10-10 11:11] LABS: Alanine Aminotransferase 13 U/L (0-31); Albumin Level 4.2 g/dL (3.5-5.0); Alkaline Phosphatase 96 U/L (39-117); Anion Gap 10 (12-20); Aspartate Amino Transferase 23 U/L (5-31); Bilirubin Total 0.4 mg/dL (0.0-1.0); Blood Urea Nitrogen 13 mg/dL (9-16); C Reactive Protein 0.26 mg/dL (< or = 0.50); Calcium 9.1 mg/dL (8.4-10.2); Carbon Dioxide 27 mmol/L (22-29); Chloride 105 mmol/L (96-108); Cholesterol 163 mg/dL (<200); Estimated Glomerular Filt Rate > 60; Glucose Random 82 mg/dL (60-115); HDL Cholesterol 75 mg/dL (>40); LDL Cholesterol Calculated 77 mg/dL (<100); Potassium 3.8 mmol/L (3.3-5.1); Sodium 138 mmol/L (135-145); Total Protein 7.5 g/dL (6.5-8.0); Triglycerides 56 mg/dL (<150)
[2024-10-10 11:22] LABS: Erythrocyte Sedimentation Rate 4 MM/HR (0-20)
[2024-10-12 04:16] LABS: HBS Num1 2.88 mIU/mL (0-7.99); HBc Num1 0.06 S/CO (0.00-0.79); HBsAGNum1 0.39 S/CO (0.00-0.99); Hepatitis A Antibody IgM 0.17 Index (0-0.79); Hepatitis B Core Antibody Nonreactive (Nonreactive); Hepatitis B Surface Antigen Negative (Negative); ~Hepatitis A Antibody IgM Nonreactive (Nonreactive); ~Hepatitis B Surface Antibody NONREACTIVE (Nonreactive); ~Hepatitis C Antibody Nonreactive (Nonreactive)
[2024-10-12 08:58] LABS: Complement C3 117 mg/dL (83-193)
[2024-10-12 18:04] LABS: Anti DNA DS Antibody 1 IU/mL
[2024-10-14 20:53] LABS: Aldolase 3.8 U/L (<=8.1)
== END 2024-10-10 09:57 | disposition home or self-care (01) ==
LOC: HO.LAB 09:56
PROVIDERS: PCP Internal Medicine; Visit Provider Student in an Organized Health Care Education/Training Program
DX: M05.9 Rheumatoid arthritis with rheumatoid factor, unspecified (principal); M35.1 Other overlap syndromes; Z13.6 Encounter for screening for cardiovascular disorders
CPT/HCPCS: 36415; 80053; 80061; 82085; 82550; 85652; 86140; 86160; 86225; 86704; 86706; 86709; 86803; 87340

== ENCOUNTER 2024-10-16 12:13 | Outpatient (REF) | payer MEDICARE, MEDICAID, SELFPAY ==
[2024-10-16 13:10] LABS: Imm Gran Abs Auto 0.04 X10*3/uL (0.00-0.03); Imm Gran Pct Auto 0.4 % (0.0-0.4); MANUAL DIFF FLAG SCAN; Red Cell Distribution Width 14.5 % (11.0-16.0); SCAN SMEAR FLAG 1
[2024-10-16 13:11] LABS: Basophils Absolute Auto 0.1 X10*3/uL (0.0-0.2); Basophils Percent Auto 0.9 % (0-2); Eosinophils Absolute Auto 0.2 X10*3/uL (0.0-0.4); Eosinophils Percent Auto 1.5 % (0-4); Hematocrit 39.3 % (37.0-47.0); Hemoglobin 13.4 g/dl (12.0-16.0); Lymphocytes Absolute Auto 3.3 X10*3/uL (1.2-4.9); Lymphocytes Percent Auto 32.5 % (20-40); Mean Corpuscular HGB Conc 34.1 g/dl (31.0-35.0); Mean Corpuscular Hemoglobin 28.2 pg (27.0-33.0); Mean Corpuscular Volume 82.7 fL (80.0-98.0); Monocytes Absolute Auto 0.5 X10*3/uL (0.1-1.2); Monocytes Percent Auto 5.1 % (2-11); Neutrophils Absolute Auto 6.1 x10*3/uL (2.0-8.3); Neutrophils Percent Auto 59.6 % (45-73); PLT CLUMP 1; Red Blood Count 4.75 X10*6/uL (4.20-5.50)
[2024-10-16 13:13] LABS: PLT ABN DIST 1; White Blood Count 10.3 X10*3/uL (4.8-10.8)
[2024-10-16 13:25] LABS: Mean Platelet Volume 13.6 fL (9.4-12.3); Platelet Count 167 X10*3/uL (160-400)
[2024-10-16 13:26] LABS: SLIDE REVIEW VERIFIED
[2024-10-19 19:19] LABS: TS Negative Control Passed; TS Panel A 0; TS Panel B 0; TS Positive Control Passed; TSpotTB Negative (Negative)
== END 2024-10-16 12:14 | disposition home or self-care (01) ==
LOC: HO.LAB 12:13
PROVIDERS: PCP Internal Medicine; Visit Provider Student in an Organized Health Care Education/Training Program
DX: M05.9 Rheumatoid arthritis with rheumatoid factor, unspecified (principal)
CPT/HCPCS: 36415; 85025; 86481

== ENCOUNTER 2024-10-30 15:57 | Outpatient (AMB) | payer MEDICARE, MEDICAID, SELFPAY ==
--- NOTE | 2024-10-30 15:58 | MHC.OFFVIS ---
Intake Visit Reasons: 14w/[employer]/med review Allergies Penicillins [PENICILLINS] Allergy (Intermediate, Verified 10/30/24 15:58) RASH/HIVES dexamethasone Allergy (Verified 10/30/24 15:58) Eye Swelling adalimumab [From Humira] Adverse Reaction (Intermediate, Verified 10/30/24 15:58) Chest Pain HPI Comments Details: 10/30/24-- 59 year old female presenting with follow-up for nephrolithiasis management. She had previously undergone a 24-hour urine collection to evaluate her renal stone disease risk factors. The results indicated a urine calcium level of 113 mg, which is well within the normal range, reducing the risk of calcium stone formation. The oxalate level was at the low end of the spectrum at 20 mg, and urinary sodium was 82 mmol, both falling within normal parameters. It was noted that her mean urine volume was slightly above one liter, lower than preferred for reducing nephrolithiasis risk. She was counseled to increase her daily fluid intake by 24 to 32 ounces to achieve a target urine output of two liters daily. Additionally, incorporating citrate into her diet through lemonade or lemon in water was suggested to provide further protection against stone formation. Results: 24 hr urine-- - Urine calcium excretion: 113 mg (normal < 200 mg) - Urine oxalate excretion: 20 mg (normal 20 - 40 mg) - Urine sodium excretion: 82 mmol (normal 50 - 150 mmol) - Urine volume: slightly over one liter, advised to increase to about two liters per day. 05/21/24--Brisa is a 59-year-old female who is followed for nephrolithiasis and overactive bladder symptoms. Pt is on pain management, opiods for chronic back pain. History of hypercalcemia and hypercalciuria, hyperparathyroid, status post hyperparathyroidectomy in 2020. Discussed renal ultrasound results. renal ultrasound 04/21/2024 bilateral kidney stones 2-3 mm. Further evaluation with 24 hour urine. The patient is on Toviaz for urinary symptoms of urge. She states that she sometimes has the urge to go every hour and when she tries to urinate she has to bear down and push to empty the bladder. I instructed not to push when voiding. Will change medication therapy Gemtesa 75 mg daily and Flomax 0.4 mg at night. 07/17/23?Brisa is a 58-year-old female who presents today to the office for a Telehealth follow-up. Video attempted She is being followed for nephrolithiasis and LUTS of urgency and incomplete bladder emptying.? The pt states she is doing well, denies dysuria or hematuria or flank pain. She has a history of hypercalciuria and status post hyperparathyroidectomy in November 2020. Past Medical history: Hypertension, rheumatoid arthritis, and chronic back pain.? She has history of pulmonary embolism and was on blood thinner.?She has quit smoking and is on nicotine 20 mg patches The patient is using cane to ambulate due to lower back pain and rheumatoid arthritis and braces for both knees OAB therapy plan includes behaviorial modification-- timed void every 2-3 hours, Toviaz 4 mg QD Review of testing: Results: CT abdomen/pelvis --- 02/20/[address] imaging evidence of urinary tract calculi or hydronephrosis. PFSH Medical History Chest pain Atypical chest pain Bronchitis Hx of nephrolithotomy with removal of calculi Swelling of finger joint of right hand Swelling of finger joint of left hand Hypocalcemia Coronary artery calcification seen on CAT scan Dyspnea Pulmonary nodules COPD (chronic obstructive pulmonary disease) Pulmonary emboli Urinary urgency Hx of hemorrhoids Seropositive rheumatoid arthritis Surgical History Hx of tubal ligation Hx of hand surgery Hx of parathyroidectomy Hx of kyphoplasty History of back surgery History of esophagogastroduodenoscopy (EGD) Hx of colonoscopy Family History Father Cancer Mother Colon cancer HTN (hypertension) Diabetes Breast cancer Brother Lupus HTN (hypertension) Kidney transplanted Sister HTN (hypertension) Cancer Liver transplanted Other FH: cancer FH: mental illness Social History Household Members: None Housing: House Alcohol intake: former Patient Tobacco Use Status: Current everyday Tobacco user Tobacco use type: Cigarette Cigarettes Per Day: 4 Years Smoked: 43 Telehealth Telehealth Telehealth Platform: D[employer]imity Location of provider rendering services: practice address Location of patient: address on file Patient Identification confirmed using: Name, : Yes Telehealth method: voice only Patient verbally consented to treatment: Yes Patient verbally consented to billing insurance company: Yes Patient informed of any privacy concerns related to visit: Yes Minutes spent on Phone/Video with Pt.: 14 Results Reviewed Results Reviewed: Date of Service: 02/20/23 EXAMINATION: CT ABDOMEN AND PELVIS WITHOUT CONTRAST CLINICAL INFORMATION: Renal calculus. COMPARISON: 09/01/2022 FINDINGS: LUNG BASES: Bronchial amaro are chronically mildly thickened. Mild atelectasis within lung bases. No acute findings in the bases compared to 11/23/2022. Again noted is linear hyperdensity within a left lower lobe pulmonary artery suspected to represent cement embolization from lumbar vertebral augmentation procedure. LIVER: The liver has normal size, shape, and attenuation. No evidence of liver mass. GALLBLADDER AND BILIARY TREE: Gallbladder is without radiopaque stones, wall thickening or pericholecystic fluid. No dilated bile ducts. PANCREAS: Normal. No edema, pancreatic ductal dilatation or mass. SPLEEN: Normal. ADRENAL GLANDS: Normal. KIDNEYS AND URETERS: The kidneys have normal size and cortical thickness. No perinephric edema. No urolithiasis or hydroureteronephrosis. BLADDER: Normal. No calculi or wall thickening. BOWEL AND PERITONEUM: Stomach is unremarkable. No dilated loops of bowel. The appendix is normal. No overt bowel wall thickening or mesenteric fat stranding. No free fluid or pneumoperitoneum. ABDOMINAL WALL: Unremarkable. VASCULATURE: There is atherosclerotic calcification of abdominal aorta and iliac arteries without aneurysm. LYMPH NODES: No pathologic sized lymph nodes in the abdomen or pelvis. No inguinal lymphadenopathy. PELVIC VISCERA: No evidence of uterine or adnexal mass. No pelvic free fluid. MUSCULOSKELETAL: Mild levocurvature of the degenerated lumbar spine and cement augmentation of compression fractures of L2 and L3 vertebra. Mild extrusion of cement through the L2 superior endplate into the central third of the disc space. At L5-S1, there is jabewaat-he-obmqtc loss of the disc space, vacuum disc phenomenon, endplate sclerosis, disc bulge, vertebral osteophyte formation and moderate facet arthropathy. IMPRESSION: * No CT imaging evidence of urinary tract calculi or hydronephrosis. * Compared to 09/01/2022, there has been interval vertebral cement augmentation of compressed L2 and L3 vertebra Assessment & Plan Assessment & Plan (1) Hypercalciuria: Code(s): R82.994 - Hypercalciuria Category: Medical (2) Nephrolithiasis: Code(s): N20.0 - Calculus of kidney Category: Medical (3) Voiding dysfunction: Code(s): N39.8 - Other specified disorders of urinary system Category: Medical (4) Hyperparathyroidism: Comment: 2 parathyroid glands removed 12/05/2020 Was following with Endocrine at [facility] in 2020 Code(s): E21.3 - Hyperparathyroidism, unspecified Category: Medical (5) Slowing of urinary stream: Code(s): R39.198 - Other difficulties with micturition Category: Medical Plan Plan - Increase daily fluid intake by 24 to 32 ounces. - Aim for a daily urine output of approximately two liters. - Add lemon to your water or consume lemonade to increase citrate intake. - Follow up with a kidney ultrasound in nine months. - Cont gemtesa and flomax Orders: Orders US renal BI 9 Months N20.0 - Calculus of kidney Patient Instructions: The patient had an opportunity to ask questions regarding treatment plan. The patient expressed understanding and agreement with the above treatment plan. The patient is aware they should contact our office by phone for worsening of their current condition or the appearance of new symptoms. Compliance is encouraged with any medications and followup testing that is ordered. It is a privilege to be allowed the opportunity to participate in the urologic care of your patient. If you have any questions or concerns regarding treatment for the above conditions please do not hesitate to contact me. The office telephone contact is [phone]. This note is constructed in part using voice recognition software. While every effort has been made to ensure accuracy instructor business education errors may have been included. Yours sincerely, Jt Witt MD Scribe Plan - Not visible on output: Patient was informed and verbally consented to the use of an ambient scribe for clinic note documentation during this visit. Coding Level of Care Code Tele Est Pt Level 3 (35215) Complex EM visit Add On G2211 Diagnoses Hypercalciuria R82.994 Nephrolithiasis N20.0 Voiding dysfunction N39.8 Hyperparathyroidism E21.3 Slowing of urinary stream R39.198
--- OUTSIDE RECORDS SUMMARY | 2024-10-30 15:59 | XMS_ITS | Clinical Summary ---
Author Organization [facility] Address [address] [place] [address] Phone Care Team Providers Care Leaded Glass Installer Name Role Phone Jackie Watt MD Primary [...] Comments Breast Cancer Screening 1965 Pneumococcal Vaccine: Peds ( 0 to 5 Years) and At-Risk Patients (6 to 49 Years) (1 of 2 - PCV) 1970 Colorectal Cancer Screening: Annual FOBT 2013 Colorectal Cancer Screening: Colonoscopy 2013 Colorectal Cancer Screening: Sigmoidoscopy 2013 Influenza Vaccine (Season Ended) 2025 Hepatitis B Vaccine Aged Out No longe r eligible based on patient's age to complete this topic Insurance Medicaid [place] Aetna MCR Adv PPO ([id number]) Medicaid [place] Aetna MCR Adv PPO ([id number]) Care Teams Leaded Glass Installer Relationship Specialty Start Date End Date Jackie Watt MD [address] [place] [address] PCP - General 08/01/20
== END 2024-10-30 16:40 | disposition home or self-care (01) ==
LOC: HO.HUSH 15:57
PROVIDERS: PCP Internal Medicine; Visit Provider Urology
DX: R82.994 Hypercalciuria (principal); N20.0 Calculus of kidney; N39.8 Other specified disorders of urinary system; E21.3 Hyperparathyroidism, unspecified; R39.198 Other difficulties with micturition
CPT/HCPCS: 99213; G2211

== ENCOUNTER → 2024-10-30 15:57 | Outpatient (BNVA) | payer MEDICARE, MEDICAID, SELFPAY | PROVIDERS: PCP Internal Medicine; Visit Provider Urology ==

== ENCOUNTER 2024-11-04 15:58 | Outpatient (AMB) | payer MEDICARE, MEDICAID, SELFPAY ==
--- NOTE | 2024-11-04 16:15 | AM.OFFVISNUR ---
Intake Visit Reasons: Evenity #7 Allergies Penicillins [PENICILLINS] Allergy (Intermediate, Verified 10/30/24 15:58) RASH/HIVES dexamethasone Allergy (Verified 10/30/24 15:58) Eye Swelling adalimumab [From Humira] Adverse Reaction (Intermediate, Verified 10/30/24 15:58) Chest Pain Office Meds romosozumab-aqqg 210 mg/2.34 mL(105 mg/1.17 mL x2)subcutaneous syringe Performing Provider: Roddy Queen MD Performing Location[place] [facility] [place] [facility] Administered by: Lyn Marti RN on 11/04/24 16:15 Dose Route Admin Location Dispensed Lot Number Expiration Date NDC Scuba Instructor 210 mg subcut bilateral upper arms 2.34 mL [id number] 11/18/26 64244-928-47 [facility] Assessment & Plan Assessment & Plan Orders: Orders AMB Romosozumab Injection Patient Supplied Today M80.00XD - Age-related osteoporosis with current pathological fracture, unspecified site, subsequent encounter for fracture with routine healing Medications: New romosozumab-aqqg 210 mg (2.34 mL) subcut ONCE 2.34 mL 0RF M80.00XD - Age-related osteoporosis with current pathological fracture, unspecified site, subsequent encounter for fracture with routine healing Coding
--- OUTSIDE RECORDS SUMMARY | 2024-11-04 18:11 | XMS_ITS | Clinical Summary ---
Author Organization [facility] Address [address] [place] [address] Phone Care Team Providers Care Mail Deliverer Name Role Phone Jackie Watt MD Primary Care Provider [phone] Allergies Active Allergy Reactions Criticality Noted Date [...] Comments Breast Cancer Screening 1965 Pneumococcal Vaccine: 50+ Ye ars (1 of 2 - PCV) 1983 Colorectal Cancer Screening: Annual FOBT 2013 Colorectal Cancer Screening: Colonoscopy 2013 Colorectal Cancer Screening: Sigmoidoscopy 2013 Influenza Vaccine (Season Ended) 2025 Hepatitis B Vaccine Aged Out No longe r eligible based on patient's age to complete this topic Insurance Medicaid [place] Aetna [facility] Adv PPO ([id number]) Medicaid [place] Aetna MCR Adv PPO ([id number]) Care Teams Mail Deliverer Relationship Specialty Start Date End Date Jackie Watt MD [address] [facility] [address] [place], [place] PCP - General 08/01/20
== END 2024-11-04 16:18 | disposition home or self-care (01) ==
LOC: HO.ENCR 15:59
PROVIDERS: PCP Internal Medicine; Visit Provider Internal Medicine Endocrinology, Diabetes & Metabolism
DX: M80.00XD Age-related osteoporosis with current pathological fracture, unspecified site, subsequent encounter for fracture with routine healing (principal)

== ENCOUNTER → 2024-11-04 15:58 | Outpatient (BNVA) | payer MEDICARE, MEDICAID, SELFPAY | PROVIDERS: PCP Internal Medicine; Visit Provider Internal Medicine Endocrinology, Diabetes & Metabolism | DX: M80.00XD Age-related osteoporosis with current pathological fracture, unspecified site, subsequent encounter for fracture with routine healing (principal); X58.XXXD Exposure to other specified factors, subsequent encounter | CPT/HCPCS: 96372; J3111 ==

== ENCOUNTER 2024-11-05 13:10 | Outpatient (REF) | payer MEDICARE, MEDICAID, SELFPAY ==
--- OUTSIDE RECORDS SUMMARY | 2024-11-05 16:09 | XMS_ITS | Clinical Summary ---
Author Organization [facility] Address [address] [place] [address] Phone Care Team Providers Care Spectrographer Name Role Phone Jackie Watt MD Primary [...] complete this topic Insurance Medicaid [place] Aetna [facility] Adv PPO ([id number]) Medicaid [place] Aetna MCR Adv PPO ([id number]) Care Teams Spectrographer Relationship Specialty Start Date End Date Jackie Watt MD [address] [facility] [address] [place], [place] PCP - General 08/01/20
== END 2024-11-05 13:11 | disposition home or self-care (01) ==
LOC: HO.MAMMO 13:10
PROVIDERS: PCP Internal Medicine; Visit Provider Internal Medicine
DX: Z12.31 Encounter for screening mammogram for malignant neoplasm of breast (principal)
CPT/HCPCS: 77063; 77067

== ENCOUNTER → 2024-11-05 13:15 | Outpatient (BNV) | payer MEDICARE, MEDICAID, SELFPAY | PROVIDERS: PCP Internal Medicine; Visit Provider Internal Medicine | DX: Z12.31 Encounter for screening mammogram for malignant neoplasm of breast (principal) | CPT/HCPCS: 77063; 77067 ==

== ENCOUNTER 2024-11-10 14:47 | Outpatient (AMB) | payer MEDICARE, MEDICAID, SELFPAY ==
[2024-11-10 14:57] VITALS: BP 140/74; PULSE 84; O2SAT 98; BMI 23.1
--- NOTE | 2024-11-10 14:57 | A.OFFVIS_ITS ---
Vital Signs 11/10/24 14:57 Height 5 ft 3 in Weight 130 lb 8.218 oz BMI 23.1 BP 140/74 H Blood Pressure Location Lt brachial Position Sitting Pulse 84 Pulse Source Pulse Oximeter Pulse Oximetry (%) 98 Oxygen Delivery Method Room Air Intake Visit Reasons: discuss labs/medication Intake Note: Patient last seen by Doctor Ruby Keen on 10/06/24. Presents today for RA and discuss treatment follow up and test results. Allergies Penicillins [PENICILLINS] Allergy (Intermediate, Verified 11/10/24 15:01) RASH/HIVES dexamethasone Allergy (Verified 11/10/24 15:01) Eye Swelling adalimumab [From Humira] Adverse Reaction (Intermediate, Verified 11/10/24 15:01) Chest Pain Medication List - Last Reconciled 11/10/24 by Ruby Keen MD albuterol sulfate mg inhalation albuterol sulfate 90 mcg/actuation 2 inhalations inhalation QID aspirin (Adult Low Dose Aspirin) 81 mg PO DAILY atorvastatin 80 mg PO DAILY azithromycin 500 mg PO QWEEK 28 days bisacodyl 10 mg (2 x 5 mg) PO BEDTIME bpntwklbyw-jqlzfnrq-bzrgigbiwc 160-9-4.8 mcg/actuation (Breztri Aerosphere) 2 inhalations inhalation BID buspirone 15 mg PO BID cetirizine 10 mg PO DAILY cholecalciferol (vitamin D3) 50 mcg PO DAILY diclofenac sodium 1% 1 - 2 grams topical BID dicyclomine 20 mg PO QID ezetimibe 10 mg PO DAILY folic acid 1 mg PO DAILY isosorbide mononitrate ER 30 mg PO DAILY levofloxacin 500 mg PO DAILY 14 days lidocaine 5% 2 patches topical DAILY linaclotide (Linzess) 290 mcg PO QAM 30 days cxidow-ocgabaed-zmdnprs 24,000-76,000 -120,000 unit (Creon) 2 caps PO BID 30 days lorazepam 1 mg PO BID lurasidone mg PO DAILY methotrexate sodium 20 mg (8 x 2.5 mg) PO QWEEK 90 days metoprolol succinate ER 100 mg PO DAILY mometasone 50 mcg/actuation intranasal DAILY montelukast 10 mg PO DAILY naloxone 4 mg/actuation 0 sprays intranasal nebulizer and compressor (Vios Aerosol Delivery System) As directed nicotine (Nicoderm CQ) 1 patch transdermal Q24H 28 days nicotine (polacrilex) (Nicorette) 4 mg buccal Q4H PRN nifedipine ER 120 mg (2 x 60 mg) PO DAILY nortriptyline 10 mg PO BEDTIME oxycodone mg PO oxycodone ER (OxyContin) 30 mg PO BID polyethylene glycol 3350 17 grams PO DAILY prednisolone acetate 1% drps ophthalmic (eye) prednisolone sodium phosphate mg PO prednisolone sodium phosphate mg PO prednisone 5 mg PO DIRECTED pregabalin 300 mg PO BID Procto-Med HC 2.5% (hydrocortisone) 1 appl AR BID PRN NS rabeprazole 20 mg PO BID roflumilast (Daliresp) 500 mcg PO DAILY 30 days romosozumab-aqqg (Evenity) 210 mg (2.34 mL) subcut .qmonthly simethicone 180 mg PO QID 30 days simethicone (Gas-X Extra Strength) 125 mg PO TID PRN tamsulosin (Flomax) 0.4 mg PO BEDTIME tizanidine 6 mg PO BEDTIME PRN tocilizumab-aazg 162 mg (0.9 mL) subcut Q2W valacyclovir 1,000 mg PO DAILY valsartan-hydrochlorothiazide 320-25 mg 1 tab PO DAILY vibegron (Gemtesa) 75 mg PO DAILY zolpidem 10 mg PO BEDTIME HPI Comments Details: Patient is a 59-year-old female with COPD, hypertension complicated by coronary artery disease, hyperlipidemia, hyperparathyroidism, GERD, osteoporosis, fibromyalgia and seropositive rheumatoid arthritis/likely overlap syndrome here today for follow up Interval History: Patient last seen 10/06/24 with me. At that time she was having worsening of her underlying disease. With a flare involving her hands, knees, elbows and shoulders. She was given a prednisone taper and started on Actemra in addition to her methotrexate Today, Patient is complaining of significant dry skin complicated by getting cuts Toe nails are changing Rheumatologic History: Seropositive rheumatoid arthritis +RF+CCP dx 2018 Methotrexate: prior to 2018- October 2021 effective per patient Leflunomide: October 2022 DC 12/2023 not effective Humira 2023 DC 12/2023 ineffective MTX restarted 12/2023 Overlap syndrome Few dilated loops on nailfold capillaroscopy. History suggestive of Raynaud's. Mild interstitial changes on CT chest. Mild esophageal dysmotility on barium swallow. Comprehensive serologies showed positive RENETTA, mildly positive anti Scl 70 antibody as well as positive PL 7 antibody. On exam there is no skin thickening, no muscle weakness on exam. Current Rheumatology Medication(s): Methotrexate 20 mg weekly Folic acid 1 mg daily Evenity (prescribed by Dr. Queen endocrinology) Actemra 162 mg every 2 weeks sc Prednisone taper PFSH Medical History Chest pain Atypical chest pain Bronchitis Hx of nephrolithotomy with removal of calculi Swelling of finger joint of right hand Swelling of finger joint of left hand Hypocalcemia Coronary artery calcification seen on CAT scan Dyspnea Pulmonary nodules COPD (chronic obstructive pulmonary disease) Pulmonary emboli Urinary urgency Hx of hemorrhoids Seropositive rheumatoid arthritis Surgical History Hx of tubal ligation Hx of hand surgery Hx of parathyroidectomy Hx of kyphoplasty History of back surgery History of esophagogastroduodenoscopy (EGD) Hx of colonoscopy Family History Father Cancer Mother Colon cancer HTN (hypertension) Diabetes Breast cancer Brother Lupus HTN (hypertension) Kidney transplanted Sister HTN (hypertension) Cancer Liver transplanted Other FH: cancer FH: mental illness Social History Household Members: None Housing: House Alcohol intake: former Patient Tobacco Use Status: Current everyday Tobacco user Tobacco use type: Cigarette Cigarettes Per Day: 4 Years Smoked: 43 Review of Systems Const Details: Review of Systems Constitutional: Denies fever, chills, weight loss ENT: Denies vision changes, eye pain or eye redness, dental caries, dry mouth GI: Denies nausea, vomiting, diarrhea, abdominal pain, change in BM Pulm: Denies SOB, BYRD, hemoptysis, wheezing Cards: Denies chest pain, palpitations Skin: Denies Raynaud's, rash, nail changes, photosensitivity, BREAST PULLER: Denies headaches, weakness, paresthesias, recurrent falls MSK: as per HPI All other systems reviewed and are unremarkable except noted above Physical Exam Vital Signs: BMI result Body Mass Index 23.1 Vital signs reviewed Physical Examination CONSTITUITIONAL Patient alert and cooperative. Well appearing and in no apparent painful distress HEENT Conjunctiva and sclera clear. ?Pupils equal round and reactive to light. ?No lymphadenopathy. ? CHEST/RESPIRATORY SYSTEM Normal respiratory effort and able to speak in complete sentences. ?Clear to auscultation bilaterally. ?No crackles, rales, rhonchi, wheezes heard. CARDIAC SYSTEM Regular rate and rhythm. ?S1 and S2 heard no murmurs. ?Radial pulses intact bilaterally MSK Hands: ?Good cap blocker strength bilaterally. No deformities noted. ?No synovitis noted to the MCPs, PIPs or DIPs. ?No tenderness to palpation of these joints. Wrists: ?Full range of motion at the wrists without pain. ?No tenderness to palpation or synovitis noted to the wrists. Elbows: Full range of motion without pain. No tenderness, weakness, swelling, increased warmth or erythema. Shoulders: Full range of motion without pain. No tenderness, weakness, swelling, increased warmth or erythema. Hips: Full range of motion without pain. Hip bursa: No tenderness to palpation Knees: ?Full range of motion. ?No tenderness, swelling, increased warmth or erythema.?No effusion or crepitations Ankles: Full range of motion. ?No tenderness, swelling, increased warmth or erythema.? Feet: ?Negative squeeze test. ?No tenderness to palpation or swelling of the MTPs. Tender points:?No tenderness to palpation of the bilateral trapezius, supraspinatus, greater trochanters, anterior costochondral junctions, bilateral gluteal areas, bilateral suboccipital muscle insertions SKIN Skin of her hands erythematous and shiny likely early scleroderma changes. Results Reviewed Results Reviewed: Laboratory Tests 10/10/24 10/16/24 10:11 12:24 WBC 10.3 RBC 4.75 Hgb 13.4 Hct 39.3 Plt Count 167 ESR 4 Sodium 138 Potassium 3.8 Chloride 105 Carbon Dioxide 27 BUN 13 Creatinine 0.70 AST 23 ALT 13 Alkaline Phosphatase 96 Total Creatine Kinase 143 H C-Reactive Protein 0.26 Cholesterol 163 LDL Cholesterol, Calc 77 HDL Cholesterol 75 Aldolase 3.8 Immunology labs 02/26/24 10/10/24 16:45 10:11 ION-1 Antibody <11 EJ Antibody <11 OJ Antibody <11 Mi-2-Alpha Ab <11 Mi-2-Beta Ab 14 H NXP-2 Ab <11 PL-[address]-12 Antibody <11 SRP Ab <11 MDA5 Ab <11 Myos P155/140 TIF1-g Ab <11 SS-A/Ro Antibody <1.0 NEG SS-B/La Antibody <1.0 NEG Sm (Kwon) Antibody <1.0 NEG U1 snRNA A Antibody <11 U1 snRNA C Antibody <11 U1 snRNA 70kD Antibody <11 SM/PHYSICAL AERODYNAMICIST IgG Antibody <1.0 NEG Scl-70 Scleroderma Ab 21 H A-PM Scleroderma 75 Ab <11 A-PM Scleroderma 100 Ab <11 Double Strand DNA Ab 1 Anti-ds DNA (Crithidia) Negative Th/To PHYSICAL AERODYNAMICIST Ab <11 U3-PHYSICAL AERODYNAMICIST (Fibrillarin) Ab <11 RNA Polymerase III RP11 Ab <11 RNA Polymerase III RP155 Ab <11 Centromere B Antibody <11 Centromere Protein A Ab <11 HMGCR IgG Antibody <2 NT5C1A IgG Antibody <5 Beta-2-GPI IgG Ab <2.0 Beta-2-GPI IgA Ab <2.0 Beta-2-GPI IgM Ab <2.0 Anti-Cardiolipin IgG Ab <2.0 Anti-Cardiolipin IgM Ab <2.0 Complement C3 57 L 117 Complement C4 12 L 20 Infectious serologies 10/10/24 10/16/24 10:11 12:24 Hepatitis A IgM Ab Nonreactive Hep Bs Antigen Negative Hep Bs Antibody NONREACTIVE Hep B Core Total Ab Nonreactive Hepatitis C Ab (EIA) Nonreactive TB Test (T-Spot) Com Negative Assessment & Plan Assessment & Plan (1) Seropositive rheumatoid arthritis: Comment: +RF+CCP dx 2018 Methotrexate: prior to 2018- October 2021 effective per patient Leflunomide: October 2022 DC 12/2023 not effective Humira 2023 DC 12/2023 ineffective MTX restarted 12/2023 Code(s): M05.9 - Rheumatoid arthritis with rheumatoid factor, unspecified Category: Medical Plan: #Seropositive RA/Overlap syndrome Patient is a 59-year-old female with seropositive rheumatoid arthritis and likely connective tissue disease overlap syndrome based on positive RENETTA, positive PL 7 and mi 2 beta, Scl 70 and history of low complements which have now resolved. She also has a history of Raynaud's, ulcers and early ILD changes on CT done about a year ago. Flare resolved on prednisolone taper. We will need to start Actemra for continued maintenance of remission. I again had a long discussion with the patient and the patient's partner about her smoking. I explained to her that the smoking makes her rheumatoid arthritis that much more difficult to treat due to the citrullination of proteins with in the lungs which again we will then travel to the joint and insight inflammation. Plan - Actemra 162mg SC every 2 weeks - Continue methotrexate 20mg weekly, split dosing - Folic acid 1mg daily, consider increasing if patient continues to complain of ulcers - complete prednisone taper - RTC 3 months - Labs before visit: CBC, CMP, ESR, CRP, lipid panel, C3, C4 (2) Osteoporosis: Comment: History of hyper parathyroidism and fragility fractures Code(s): M81.0 - Age-related osteoporosis without current pathological fracture Category: Medical Qualifiers: Osteoporosis type: age-related Presence of current pathological fracture: with current pathological fracture Encounter type: subsequent encounter Fracture healing: with routine healing Qualified Code(s): M80.00XD - Age-related osteoporosis with current pathological fracture, unspecified site, subsequent encounter for fracture with routine healing Plan: #Osteoporosis Patient with osteoporosis and a history of fragility fractures currently on Evenity as per endocrinology. (3) Encounter for monitoring tocilizumab therapy: Code(s): Z51.81 - Encounter for therapeutic drug level monitoring; Z79.620 - custodial (current) use of immunosuppressive biologic Plan: #Long-term Use of Tocilizumab Discussed the risks and benefits of tocilizumab with the management of this patient's rheumatic condition. ? Benefits include decreased pain, improved mortality, improved quality of life Risks include LFT abnormalities, elevated triglycerides, GI perforations Contraindicated in a patient with history of diverticulitis Monitoring: ?CBC, CMP, triglycerides (4) Encounter for methotrexate monitoring: Code(s): Z51.81 - Encounter for therapeutic drug level monitoring; Z79.631 - superintendent [employer] (current) use of antimetabolite agent Plan: #Long-term Current Use of Methotrexate Discussed with patient the benefits and risks of methotrexate for managing their rheumatic condition Benefits include reduced pain, reduced mortality, maintenance of remission and reduction of flares Risks include oral ulcers, photosensitivity, hepatotoxicity, hematologic toxicity, pneumonitis, flu-like symptoms (especially day after administration), nodulosis, lymphomas ? Limit alcohol and avoid Bactrim ? Monitoring: ?CBC, BMP, LFTs every 3-4 months and hepatitis serologies as needed Plan I spent 36 minutes reviewing the record and labs, taking a history, examining the patient, discussing the treatment plan, ordering diagnostic work up, answered questions from the patient and the daughter and documenting in the medical record Coding Level of Care Code Est Pt Level 4 (49103) Complex EM visit Add On G2211 Diagnoses Seropositive rheumatoid arthritis M05.9 Age-related osteoporosis with current pathological fracture with routine healing, subsequent encounter M80.00XD Osteoporosis type: age-related Presence of current pathological fracture: with current pathological fracture Encounter type: subsequent encounter Fracture healing: with routine healing Encounter for monitoring tocilizumab therapy Z51.81; Z79.620 Encounter for methotrexate monitoring Z51.81; Z79.631
--- OUTSIDE RECORDS SUMMARY | 2024-11-10 17:40 | XMS_ITS | Clinical Summary ---
Author Organization [facility] Address [address] [place] [address] Phone Care Team Providers Care Lens Matcher Name Role Phone Jackie Watt MD Primary Care Provider [phone] Allergies Active Allergy Reactions Criticality Noted Date [...] complete this topic Insurance Medicaid [place] Aetna [facility] Adv PPO ([id number]) Medicaid [place] A[employer] MCR Adv PPO ([id number]) Care Teams Lens Matcher Relationship Specialty Start Date End Date Jackie Watt MD [address] [facility] [address] [place], [place] PCP - General 08/01/20
== END 2024-11-10 15:56 | disposition home or self-care (01) ==
LOC: HO.RHE 14:48
PROVIDERS: PCP Internal Medicine; Visit Provider Student in an Organized Health Care Education/Training Program
DX: M05.79 Rheumatoid arthritis with rheumatoid factor of multiple sites without organ or systems involvement (principal); M80.00XD Age-related osteoporosis with current pathological fracture, unspecified site, subsequent encounter for fracture with routine healing; Z51.81 Encounter for therapeutic drug level monitoring; Z79.620 Long term (current) use of immunosuppressive biologic; Z79.631 Long term (current) use of antimetabolite agent
CPT/HCPCS: 99214; G2211

== ENCOUNTER → 2024-11-10 14:47 | Outpatient (BNVA) | payer MEDICARE, MEDICAID, SELFPAY | PROVIDERS: PCP Internal Medicine; Visit Provider Student in an Organized Health Care Education/Training Program | DX: M05.9 Rheumatoid arthritis with rheumatoid factor, unspecified (principal); M80.00XD Age-related osteoporosis with current pathological fracture, unspecified site, subsequent encounter for fracture with routine healing; Z51.81 Encounter for therapeutic drug level monitoring; Z79.620 Long term (current) use of immunosuppressive biologic; Z79.631 Long term (current) use of antimetabolite agent | CPT/HCPCS: 99212 ==

== ENCOUNTER 2024-12-08 13:31 | Outpatient (AMB) | payer MEDICARE, MEDICAID, SELFPAY ==
--- NOTE | 2024-12-08 13:36 | A.OFFVIS_ITS ---
Vital Signs 12/08/24 13:39 Height 5 ft 2.72 in Weight 128 lb 15.527 oz BMI 23.0 BP 146/88 H Blood Pressure Location Rt brachial Position Sitting Pulse 76 Pulse Source Pulse Oximeter Pulse Oximetry (%) 98 Oxygen Delivery Method Room Air Intake Visit Reasons: Osteoporosis/Evenity #8 Intake Note: Patient present today for Osteoporosis, Evenity number 8. 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 Accompanied by: Self / Same As Patient Allergies Penicillins [PENICILLINS] Allergy (Intermediate, Verified 12/08/24 13:44) RASH/HIVES dexamethasone Allergy (Verified 12/08/24 13:44) Eye Swelling adalimumab [From Humira] Adverse Reaction (Intermediate, Verified 12/08/24 13:44) Chest Pain Medication List - Last Reconciled 12/08/24 by Roddy Queen MD albuterol sulfate mg inhalation albuterol sulfate 90 mcg/actuation 2 inhalations inhalation QID aspirin (Adult Low Dose Aspirin) 81 mg PO DAILY atorvastatin 80 mg PO DAILY azithromycin 500 mg PO QWEEK 28 days bisacodyl 10 mg (2 x 5 mg) PO BEDTIME sueodmoswm-ulvdcteu-iujwhmdock 160-9-4.8 mcg/actuation (Breztri Aerosphere) 2 inhalations inhalation BID buspirone 15 mg PO BID cetirizine 10 mg PO DAILY cholecalciferol (vitamin D3) 50 mcg PO DAILY diclofenac sodium 1% 1 - 2 grams topical BID dicyclomine 20 mg PO QID ezetimibe 10 mg PO DAILY folic acid 1 mg PO DAILY isosorbide mononitrate ER 30 mg PO DAILY levofloxacin 500 mg PO DAILY 14 days lidocaine 5% 2 patches topical DAILY linaclotide (Linzess) 290 mcg PO QAM 30 days iexzyn-xbmayfpj-dbzpljy 24,000-76,000 -120,000 unit (Creon) 2 caps PO BID 30 days lorazepam 1 mg PO BID lurasidone mg PO DAILY methotrexate sodium 20 mg (8 x 2.5 mg) PO QWEEK 90 days metoprolol succinate ER 100 mg PO DAILY mometasone 50 mcg/actuation intranasal DAILY montelukast 10 mg PO DAILY naloxone 4 mg/actuation 0 sprays intranasal nebulizer and compressor (Zayante Aerosol Delivery System) As directed nicotine (Nicoderm CQ) 1 patch transdermal Q24H 28 days nicotine (polacrilex) (Nicorette) 4 mg buccal Q4H PRN nifedipine ER 120 mg (2 x 60 mg) PO DAILY nortriptyline 10 mg PO BEDTIME oxycodone mg PO oxycodone ER (OxyContin) 30 mg PO BID polyethylene glycol 3350 17 grams PO DAILY prednisolone acetate 1% drps ophthalmic (eye) prednisolone sodium phosphate mg PO prednisolone sodium phosphate mg PO prednisone 5 mg PO DIRECTED pregabalin 300 mg PO BID Procto-Med HC 2.5% (hydrocortisone) 1 appl NV BID PRN NS rabeprazole 20 mg PO BID roflumilast 500 mcg PO DAILY romosozumab-aqqg (Evenity) 210 mg (2.34 mL) subcut .qmonthly simethicone 180 mg PO QID 30 days simethicone (Gas-X Extra Strength) 125 mg PO TID PRN tamsulosin (Flomax) 0.4 mg PO BEDTIME tizanidine 6 mg PO BEDTIME PRN tocilizumab-aazg 162 mg (0.9 mL) subcut Q2W valacyclovir 1,000 mg PO DAILY valsartan-hydrochlorothiazide 320-25 mg 1 tab PO DAILY vibegron (Gemtesa) 75 mg PO DAILY zolpidem 10 mg PO BEDTIME HPI Comments Details: 59 YO Female with PMHx hyperparathyroidism status post parathyroid surgery 12/05/20 is seen in consultation at the request of PCP for Osteoporosis. She has previous seen a [facility] diagnosed in few yrs ago . Never Received treatment in the past except for alendronate on 11/13/22. history of pathologic fracture fragility fractures requiring kyphoplasty 10/08/2022. Has few servings of dietary calcium per day Not Takes Calcium supplement Not Takes IU of Vitamin D daily. takes PPI, anticoagulant, antiepileptic not taking glucocorticoid medication. 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 Has dentures No planned upcoming dental work or extractions. Does smoke DXA dated 09/28/21 : EXAMINATION: BONE DENSITOMETRY CLINICAL INDICATION: Postmenopausal. COMPARISON: Baseline BD dated 02/04/2018. TECHNIQUE: Using a [employer] DXA System (software version: 13.1) manufactured by [employer], dual-energy x-ray absorptiometry was performed of the lumbar spine and left hip. The images are of good technical quality. Summary results are attached. FINDINGS: AP SPINE L1-L4: Current: BMD 0.894 g/cm2, Z-score -1.3, T-score -2.4, osteopenia, 5.9% decrease from baseline (<5% change is not significant). Baseline: BMD 0.950 g/cm2. LEFT FEMUR, NECK: Current: BMD 0.670 g/cm2, Z-score -1.5, T-score -2.6, osteoporosis. Baseline: BMD 0.777 g/cm2. LEFT FEMUR, TOTAL: Current: BMD 0.704 g/cm2, Z-score -1.6, T-score -2.4, osteopenia, 11.7% decrease from baseline (<5% change is not significant). Baseline: BMD 0.797 g/cm2. IDENTIFIED RISK FACTORS: Rheumatoid arthritis, tobacco use (current smoker), height loss, glucocorticoids (chronic), menopause. HISTORY OF FRACTURE: None listed. MEDICATIONS: Calcium supplements or multivitamin, vitamin D. MM/XR DEXA axial skeleton IMPRESSION: 1. DIAGNOSIS: Osteoporosis based on the lowest T-score value of -2.6 in the femoral neck applying World Health Organization criteria.? ? Labs: Took Evenity 2 doses with rash in mouth, chest pain , rash and difficulty breathing - SOB remains after stopping . Reinitiated on steroids by R heumatology. Jagjit are swollen and numbness and tingling in hands , hip and joint pain. We delayed the Evenity injection and patient has still persisted in having the same symptoms. Went back on Evenity injection # 8. Is today The patient is a 59-year-old female presenting with osteoporosis management and associated balance issues. She is receiving consecutive eventing injections to manage high-risk osteoporosis, with the eighth injection recently administered. She has had no fractures since prior to commencing osteoporosis treatment but reports episodes of falling, which may indicate deteriorating balance. Her medical history includes significant gastroesophageal reflux disease (GERD), chronic esophagitis, and a treatment regimen that includes omeprazole. She frequently experiences severe reflux episodes necessitating emergency intervention. The combination of steroid use and GERD presents a challenge in osteoporosis management, particularly concerning oral medications like alendro mazin, which could exacerbate her reflux symptoms and esophagitis. As an alternative, an intravenous bisphosphonate, Reclast, is considered to bypass gastrointestinal complications. The patient's balance issues prompt discussions on interventions such as exercise programs to fortify bone health and prevent falls. Recommendations emphasize continued calcium and vitamin D supplementation, home safety measures, and routine monitoring to optimize her osteoporosis treatment plan. [facility] Medical History Chest pain Atypical chest pain Bronchitis Hx of nephrolithotomy with removal of calculi Swelling of finger joint of right hand Swelling of finger joint of left hand Hypocalcemia Coronary artery calcification seen on CAT scan Dyspnea Pulmonary nodules COPD (chronic obstructive pulmonary disease) Pulmonary emboli Urinary urgency Hx of hemorrhoids Seropositive rheumatoid arthritis Surgical History Hx of tubal ligation Hx of hand surgery Hx of parathyroidectomy Hx of kyphoplasty History of back surgery History of esophagogastroduodenoscopy (EGD) Hx of colonoscopy Family History Father Cancer Mother Colon cancer HTN (hypertension) Diabetes Breast cancer Brother Lupus HTN (hypertension) Kidney transplanted Sister HTN (hypertension) Cancer Liver transplanted Other FH: cancer FH: mental illness Social History Household Members: None Housing: House Alcohol intake: former Patient Tobacco Use Status: Current everyday Tobacco user Tobacco use type: Cigarette Cigarettes Per Day: 4 Years Smoked: 43 Physical Exam Vital Signs: Last Vital Signs Pulse 76 12/08/24 13:39 BP 146/88 H 12/08/24 13:39 Pulse Ox 98 12/08/24 13:39 Oxygen Delivery Method Room Air 12/08/24 13:39 BMI result Body Mass Index 23.0 Assessment & Plan Assessment & Plan (1) Osteoporosis: Comment: History of hyper parathyroidism and fragility fractures Code(s): M81.0 - Age-related osteoporosis without current pathological fracture Category: Medical Qualifiers: Encounter type: subsequent encounter Fracture healing: with routine healing Osteoporosis type: age-related Presence of current pathological fracture: with current pathological fracture Qualified Code(s): M80.00XD - Age- related osteoporosis with current pathological fracture, unspecified site, subsequent encounter for fracture with routine healing Plan: This is a 59-year-old female with a history of primary hyperparathyroidism status post parathyroidectomy with normalization of calcium and PTH with recent vertebral of fragility fracture and kyphoplasty. Secondary workup was negative . She is currently on Evenity for 8 mos duration. Plan is to continue the Evenity injections for a total of 1 year. At that point, in 4 months we will switch to an anti resorptive like Reclast considering significant GERD. We will recheck DEXA bone density 1. Osteoporosis with high fracture risk Continue with current injections, consider switching to Reclast IV post regimen due to GERD. Discussed bone density test and fall prevention. 3. Long-term steroid use Monitor as part of osteoporosis management plan. The patient had an opportunity to ask questions regarding treatment plan. The patient expressed understanding and agreement with the above treatment plan. During our visit, I expressed the plan of continuing with the current sequence of eventing injections, recognizing the patient's GERD concerns. After the initial 12-month treatment, we discussed a strategy to use Reclast IV to reduce esophageal irritation. I cautioned about potential side effects with oral bisphosphonates like alendronate and recommended annual IV dosing only if necessary. A follow-up bone density examination was planned to evaluate the progression of bone health under current treatment. Precautionary measures against falls were emphasized through home safety and possible enrollment in balance enhancement programs. Medication compliance with GERD treatments and avoiding esophageal irritation were underscored. - Continue current osteoporosis and GERD medications as prescribed. - Consider enrolling in Better Bones and Balance program for fall prevention. - Ensure home is safe by keeping common areas well-lit. - Schedule a follow-up for a bone density test. - Discuss any new balance or reflux problems promptly. . Patient was informed and verbally consented to the use of an ambient scribe for clinic note documentation during this visit. Orders: Orders XR DEXA axial skeleton Today M80.00XD - Age-related osteoporosis with current pathological fracture, unspecified site, subsequent encounter for fracture with routine healing Coding Level of Care Code Est Pt Level 3 (46545) Diagnoses Age-related osteoporosis with current pathological fracture with routine heal ing, subsequent encounter M80.00XD Encounter type: subsequent encounter Fracture healing: with routine healing Osteoporosis type: age-related Presence of current pathological fracture: with current pathological fracture
[2024-12-08 13:39] VITALS: BP 146/88; PULSE 76; O2SAT 98; BMI 23.0
--- OUTSIDE RECORDS SUMMARY | 2024-12-08 14:41 | XMS_ITS | Clinical Summary ---
Author Organization [facility] Address [address] [place] [address] Phone Care Team Providers Care Carpenters Helper Name Role Phone Jackie Watt MD Primary [...] complete this topic Insurance Medicaid [place] Aetna [facility] Adv PPO ([id number]) Medicaid [place] Aetna [facility] Adv PPO ([id number]) Care Teams Carpenters Helper Relationship Specialty Start Date End Date Jackie Watt MD [address] [facility] [address] [address] [place], [place] PCP - General 08/01/20
== END 2024-12-08 14:20 | disposition home or self-care (01) ==
LOC: HO.ENCR 13:31
PROVIDERS: PCP Internal Medicine; Visit Provider Internal Medicine Endocrinology, Diabetes & Metabolism
DX: M80.00XD Age-related osteoporosis with current pathological fracture, unspecified site, subsequent encounter for fracture with routine healing (principal)
CPT/HCPCS: 99213

== ENCOUNTER → 2024-12-08 13:31 | Outpatient (BNVA) | payer MEDICARE, MEDICAID, SELFPAY | PROVIDERS: PCP Internal Medicine; Visit Provider Internal Medicine Endocrinology, Diabetes & Metabolism | DX: M80.00XD Age-related osteoporosis with current pathological fracture, unspecified site, subsequent encounter for fracture with routine healing (principal); X58.XXXD Exposure to other specified factors, subsequent encounter | CPT/HCPCS: 96372; 99212; J3111 ==

== ENCOUNTER 2024-12-10 10:30 | Outpatient (REF) | payer MEDICARE, MEDICAID, SELFPAY ==
--- NOTE | ~2024-12-10 | US_ITS ---
EXAMINATION: MM DIAGNOSTIC DIGITAL BREAST TOMOSYNTHESIS, RIGHT Limited right breast ultrasound. CLINICAL INFORMATION: Call back from screening for asymmetry in the superior right breast on MLO view anterior depth with questioned distortion. COMPARISON: Mammography: Priors on PACS. TECHNIQUE: Digital breast tomosynthesis is performed in both the craniocaudal and mediolateral oblique views along with computer-aided detection (CAD). Synthesized 2D images are generated from the tomosynthesis. FINDINGS: The breasts are heterogeneously dense, which may obscure small masses (ACR BI-RADS breast composition Category c). Previously seen asymmetry in the superior right breast on MLO view does not persist on additional imaging projections no distortion is seen. This likely represented overlapping breast tissue. There are no significant masses, abnormal calcifications, or other abnormalities. Targeted color Doppler ultrasound scanning in the superior right breast from 10-2 o'clock demonstrates normal fibroglandular breast tissue. There is no sonographic abnormal findings. US/US breast RT limited mamm only IMPRESSION: No mammographic or sonographic abnormal findings. Negative. ASSESSMENT: BI-RADS BI-RADS 1 - Negative RECOMMENDATION: 1 year F/U Results were provided to the patient at time of visit by the technologist. This patient's information was entered into a reminder system with a target due date for their next mammogram. Electronically signed by: Ashlie Escobedo DO 12/10/2024 11:35 AM EDT
--- NOTE | ~2024-12-10 | MM_ITS ---
EXAMINATION: DXA BONE DENSITY AXIAL HISTORY: M80.00XD - Age-related osteoporosis with current pathological fracture, ... TECHNIQUE: [employer] Dual energy absorptiometry (DEXA) of the lumbar spine, total left hip, and femoral neck was performed. COMPARISON: Comparison is made with the prior examination dated 09/28/2021. FINDINGS: The bone mineral density of the lumbar spine is 1.097, corresponding to a T-score of -0.6, and a Z-score of 0.7. This is indicative of normal bone mineral density. This represents a BMD change of 18.2% compared to the prior exam. This is statistically significant. The bone mineral density of the left total hip is 0.823, corresponding to a T-score of -1.5, and a Z-score of -0.5. This is indicative of osteopenia. This represents a BMD change of 16.9% compared to the prior exam. This is statistically significant. The bone mineral density of the left femoral neck is 0.753, corresponding to a T-score of -2.0, and a Z-score of -0.8. This is indicative of osteopenia. This represents a BMD change of 12.4% compared to the prior exam. MM/XR DEXA axial skeleton IMPRESSION: Based on bone mineral density, and according to World Health Organization (WHO) criteria, the diagnosis is consistent with osteopenia. All bone density values are in grams per centimeter squared (g/cm2). Statistically, 68% of repeat scans fall within 1 SD (+/- 0.010 g/cm2 for AP spine L1-L4) and 1 SD (+/- 0.012 g/cm2 for femur total) FRAX is a trademark of the [employer]'s [place] for Metabolic Bone Disease, a World Health Organization (WHO) Collaborating Center. Electronically signed by: Roddy Lockett MD 12/10/2024 12:42 PM EDT
--- NOTE | ~2024-12-10 | CT_ITS ---
CLINICAL HISTORY: R91.8 - Other nonspecific abnormal finding of lung field CT chest without contrast Comparison: CT/KS/SR - CT CHEST WO IV CON - 11/28/23 11:18 EDT Findings: The heart is normal size. The visualized thyroid and mediastinum are unremarkable. No consolidation or effusion. Intraseptal thickening of the bilateral lungs. There is bronchial wall thickening bilaterally. Patchy ground-glass opacities of the bilateral lungs likely represent inflammation. Subpleural ground-glass opacity could represent early fibrotic changes. Focal area of bronchiectasis of the left lower lobe image 80. Stable in size of the 4 mm nodules of the left lower lobe series 4, image 53. 2 mm subpleural nodule of the right upper lobe image 31. The upper abdomen is unremarkable. No acute fractures. IMPRESSION: Stable in size of the left lower lobe pulmonary nodules. Fleischner Society 2017 Guidelines for incidentally detected indeterminate nodules in persons 35 years of age or older. Single Solid Nodules: 5 mm or smaller nodules need no follow-up in low risk, and [address] follow-up is optional in high risk patients. 6-8 mm nodules have optional [address] follow-up in low risk, and 6-[address] follow-up followed by 18-[address] follow-up if no change in high risk patients. 9 mm or larger nodules should consider CT, PET/CT, or biopsy at 3 months regardless of patient risk. Multiple Solid Nodules: 5 mm or smaller nodules need no follow-up in low risk, and [address] follow-up is optional in high risk patients. 6-8 mm nodules need 3-[address] follow-up followed by an optional 18-[address] follow-up regardless of patient risk. 9 mm or larger nodules should consider 3-[address] follow-up. For low risk 18-24 month follow-up is optional, whereas for high risk it is needed. Single Ground Glass Nodules: 5 mm or smaller nodules need no followup 6 mm and larger nodules need CT at 6-12 months to confirm persistence, then CT every 2 years until 5 years Single Subsolid Nodules: 5 mm or smaller nodules need no followup 6 mm and larger nodules need CT at 3-6 months to confirm persistence. If no change and solid component /T/lt;6 mm, then CT every year until 5 years Multiple Ground Glass or Subsolid Nodules: 5 mm or smaller nodules need CT at 3-6 months. If stable, optional CT at 2 and 4 years. 6 mm or larger nodules need CT at 3-6 months. Subsequent management based on most suspicious nodule This document has been electronically signed by: Theresa Fitzgerald MD on 12/11/2024 07:35:59
--- OUTSIDE RECORDS SUMMARY | 2024-12-10 11:03 | XMS_ITS | Clinical Summary ---
Author Organization [facility] Address [address] [place] [address] Phone Care Team Providers Care Weed Cooking Operator Name Role Phone Jackie Watt MD Primary [...] complete this topic Insurance Medicaid [place] Aetna [facility] Adv PPO ([id number]) Medicaid [place] Aetna [facility] Adv PPO ([id number]) Care Teams Weed Cooking Operator Relationship Specialty Start Date End Date Jackie Watt MD [address] [facility] [address] [place], [place] PCP - General 08/01/20
== END 2024-12-10 10:31 | disposition home or self-care (01) ==
LOC: HO.MAMMO 10:30
PROVIDERS: PCP Internal Medicine; Visit Provider Internal Medicine
DX: M81.0 Age-related osteoporosis without current pathological fracture (principal); R91.8 Other nonspecific abnormal finding of lung field; N64.89 Other specified disorders of breast; R92.331 Mammographic heterogeneous density, right breast
CPT/HCPCS: 71250; 76642; 77061; 77065; 77080

== ENCOUNTER → 2024-12-10 10:30 | Outpatient (BNV) | payer MEDICARE, MEDICAID, SELFPAY | PROVIDERS: PCP Internal Medicine; Visit Provider Internal Medicine | DX: E28.39 Other primary ovarian failure (principal); R92.8 Other abnormal and inconclusive findings on diagnostic imaging of breast | CPT/HCPCS: 76642; 77065; 77080; G0279 ==

== ENCOUNTER 2024-12-26 08:21 | Outpatient (REF) | payer MEDICARE, MEDICAID, SELFPAY ==
[2024-12-26 09:06] LABS: Basophils Absolute Auto 0.1 X10*3/uL (0.0-0.2); Basophils Percent Auto 1.4 % (0-2); Eosinophils Absolute Auto 0.3 X10*3/uL (0.0-0.4); Eosinophils Percent Auto 3.8 % (0-4); Hematocrit 38.2 % (37.0-47.0); Hemoglobin 12.9 g/dl (12.0-16.0); Imm Gran Abs Auto 0.02 X10*3/uL (0.00-0.03); Imm Gran Pct Auto 0.3 % (0.0-0.4); Lymphocytes Percent Auto 30.4 % (20-40); MANUAL DIFF FLAG SCAN; Mean Corpuscular HGB Conc 33.8 g/dl (31.0-35.0); Mean Corpuscular Hemoglobin 29.4 pg (27.0-33.0); Monocytes Absolute Auto 0.8 X10*3/uL (0.1-1.2); Monocytes Percent Auto 12.5 % (2-11); Neutrophils Absolute Auto 3.4 x10*3/uL (2.0-8.3); Neutrophils Percent Auto 51.6 % (45-73); PLT CLUMP 1; Red Blood Count 4.39 X10*6/uL (4.20-5.50); Red Cell Distribution Width 16.5 % (11.0-16.0); SCAN SMEAR FLAG 1
[2024-12-26 09:11] LABS: White Blood Count 6.6 X10*3/uL (4.8-10.8)
[2024-12-26 09:26] LABS: Alanine Aminotransferase 13 U/L (0-31); Albumin Level 4.4 g/dL (3.5-5.0); Alkaline Phosphatase 82 U/L (39-117); Anion Gap 8 (12-20); Aspartate Amino Transferase 22 U/L (5-31); Bilirubin Total 0.4 mg/dL (0.0-1.0); Blood Urea Nitrogen 10 mg/dL (9-16); C Reactive Protein 1.31 mg/dL (< or = 0.50); Calcium 9.4 mg/dL (8.4-10.2); Carbon Dioxide 29 mmol/L (22-29); Chloride 107 mmol/L (96-108); Cholesterol 174 mg/dL (<200); Estimated Glomerular Filt Rate > 60; Glucose Random 84 mg/dL (60-115); HDL Cholesterol 77 mg/dL (>40); LDL Cholesterol Calculated 87 mg/dL (<100); Potassium 4.1 mmol/L (3.3-5.1); Sodium 140 mmol/L (135-145); Total Protein 6.9 g/dL (6.5-8.0); Triglycerides 51 mg/dL (<150)
[2024-12-26 09:32] LABS: Erythrocyte Sedimentation Rate 7 MM/HR (0-20)
[2024-12-26 09:42] LABS: Platelet Count 120 X10*3/uL (160-400)
[2024-12-26 09:43] LABS: SLIDE REVIEW VERIFIED
[2024-12-28 12:08] LABS: Complement C3 124 mg/dL (83-193)
[2024-12-29 22:08] LABS: Anti DNA DS Antibody 1 IU/mL
== END 2024-12-26 08:22 | disposition home or self-care (01) ==
LOC: HO.LAB 08:21
PROVIDERS: Absent Provider Student in an Organized Health Care Education/Training Program; PCP Internal Medicine; Referring Provider Nurse Practitioner Family; Visit Provider Internal Medicine
DX: M05.9 Rheumatoid arthritis with rheumatoid factor, unspecified (principal); M79.7 Fibromyalgia; Z72.0 Tobacco use; Z13.6 Encounter for screening for cardiovascular disorders
CPT/HCPCS: 36415; 80053; 80061; 85025; 85652; 86140; 86160; 86225

== ENCOUNTER 2024-12-31 12:49 | Outpatient (AMB) | payer MEDICARE, MEDICAID, SELFPAY ==
--- NOTE | 2024-12-31 12:51 | MHC.OFFVIS ---
Vital Signs 12/31/24 12:52 Height 5 ft 2.72 in Weight 125 lb 0.034 oz BMI 22.3 BP 132/72 Blood Pressure Location Lt brachial Position Sitting Pulse 78 Pulse Source Pulse Oximeter Pulse Oximetry (%) 98 Oxygen Delivery Method Room Air Intake Visit Reasons: discuss labs Intake Note: Patient presents for follow up on blood work. Patient states her vision and changed, her skin feels sensitive and tight. Allergies Penicillins [PENICILLINS] Allergy (Intermediate, Verified 12/31/24 12:54) RASH/HIVES dexamethasone Allergy (Verified 12/31/24 12:54) Eye Swelling adalimumab [From Humira] Adverse Reaction (Intermediate, Verified 12/31/24 12:54) Chest Pain Medication List - Last Reconciled 12/31/24 by Ruby Keen MD albuterol sulfate mg inhalation albuterol sulfate 90 mcg/actuation 2 inhalations inhalation QID aspirin (Adult Low Dose Aspirin) 81 mg PO DAILY atorvastatin 80 mg PO DAILY azithromycin 500 mg PO QWEEK 28 days bisacodyl 10 mg (2 x 5 mg) PO BEDTIME inleyvxion-dzijwlsh-wkdgmnxksw 160-9-4.8 mcg/actuation (Breztri Aerosphere) 2 inhalations inhalation BID buspirone 15 mg PO BID cetirizine 10 mg PO DAILY cholecalciferol (vitamin D3) 50 mcg PO DAILY diclofenac sodium 1% 1 - 2 grams topical BID dicyclomine 20 mg PO QID ezetimibe 10 mg PO DAILY folic acid 1 mg PO DAILY isosorbide mononitrate ER 30 mg PO DAILY levofloxacin 500 mg PO DAILY 14 days lidocaine 5% 2 patches topical DAILY linaclotide (Linzess) 290 mcg PO QAM 30 days tcuhrg-pwkyklly-affygfz 24,000-76,000 -120,000 unit (Creon) 2 caps PO BID 30 days lorazepam 1 mg PO BID lurasidone mg PO DAILY methotrexate sodium 20 mg (8 x 2.5 mg) PO QWEEK 90 days metoprolol succinate ER 100 mg PO DAILY mometasone 50 mcg/actuation intranasal DAILY montelukast 10 mg PO DAILY naloxone 4 mg/actuation 0 sprays intranasal nebulizer and compressor (Vios Aerosol Delivery System) As directed nicotine (Nicoderm CQ) 1 patch transdermal Q24H 28 days nicotine (polacrilex) (Nicorette) 4 mg buccal Q4H PRN nifedipine ER 120 mg (2 x 60 mg) PO DAILY nortriptyline 10 mg PO BEDTIME oxycodone mg PO oxycodone ER (OxyContin) 30 mg PO BID polyethylene glycol 3350 17 grams PO DAILY prednisolone acetate 1% drps ophthalmic (eye) prednisolone sodium phosphate mg PO prednisolone sodium phosphate mg PO pregabalin 300 mg PO BID Procto-Med HC 2.5% (hydrocortisone) 1 appl FL BID PRN NS rabeprazole 20 mg PO BID roflumilast 500 mcg PO DAILY romosozumab-aqqg (Evenity) 210 mg (2.34 mL) subcut .qmonthly simethicone 180 mg PO QID 30 days simethicone (Gas-X Extra Strength) 125 mg PO TID PRN tamsulosin (Flomax) 0.4 mg PO BEDTIME tizanidine 6 mg PO BEDTIME PRN tocilizumab (Actemra ACTPen) 162 mg (0.9 mL) subcut Q2W valacyclovir 1,000 mg PO DAILY valsartan-hydrochlorothiazide 320-25 mg 1 tab PO DAILY vibegron (Gemtesa) 75 mg PO DAILY zolpidem 10 mg PO BEDTIME HPI Comments Details: Patient is a 59-year-old female with COPD, hypertension complicated by coronary artery disease, hyperlipidemia, hyperparathyroidism, GERD, osteoporosis, fibromyalgia and seropositive rheumatoid arthritis/likely overlap syndrome here today for follow up Interval History: Patient last seen 11/10/24 with me. At that time she was following up for her seropositive rheumatoid arthritis recently started on Actemra in addition to her methotrexate. She was also tapering off her prednisone dose Today, Was on Tyenne but then was changed to Actemra. Has not started this medication as yet Complaining of skin tightening and vision changes Whole body aches Rheumatologic History: Seropositive rheumatoid arthritis +RF+CCP dx 2017 Methotrexate: prior to 2017- October 2021 effective per patient Leflunomide: October 2022 DC 12/2023 not effective Hum2023 DC 12/2023 ineffective MTX restarted 12/2023 Overlap syndrome Few dilated loops on nailfold capillaroscopy. History suggestive of Raynaud's. Mild interstitial changes on CT chest. Mild esophageal dysmotility on barium swallow. Comprehensive serologies showed positive RENETTA, mildly positive anti Scl 70 antibody as well as positive PL 7 antibody. On exam there is no skin thickening, no muscle weakness on exam. Current Rheumatology Medication(s): Methotrexate 20 mg weekly Folic acid 1 mg daily Evenity (prescribed by Dr. Queen endocrinology) Actemra 162 mg every 2 weeks sc Prednisone taper PFSH Medical History Chest pain Atypical chest pain Bronchitis Hx of nephrolithotomy with removal of calculi Swelling of finger joint of right hand Swelling of finger joint of left hand Hypocalcemia Coronary artery calcification seen on CAT scan Dyspnea Pulmonary nodules COPD (chronic obstructive pulmonary disease) Pulmonary emboli Urinary urgency Hx of hemorrhoids Seropositive rheumatoid arthritis Surgical History Hx of tubal ligation Hx of hand surgery Hx of parathyroidectomy Hx of kyphoplasty History of back surgery History of esophagogastroduodenoscopy (EGD) Hx of colonoscopy Family History Father Cancer Mother Colon cancer HTN (hypertension) Diabetes Breast cancer Brother Lupus HTN (hypertension) Kidney transplanted Sister HTN (hypertension) Cancer Liver transplanted Other FH: cancer FH: mental illness Social History Household Members: None Housing: House Alcohol intake: former Patient Tobacco Use Status: Current everyday Tobacco user Tobacco use type: Cigarette Cigarettes Per Day: 4 Years Smoked: 43 Review of Systems Const Details: Review of Systems Constitutional: Denies fever, chills, weight loss ENT: Denies vision changes, eye pain or eye redness, dental caries, dry mouth GI: Denies nausea, vomiting, diarrhea, abdominal pain, change in BM Pulm: Denies SOB, BYRD, hemoptysis, wheezing Cards: Denies chest pain, palpitations Skin: Denies Raynaud's, rash, nail changes, photosensitivity, LOADING MACHINE ADJUSTER: Denies headaches, weakness, paresthesias, recurrent falls MSK: as per HPI All other systems reviewed and are unremarkable except noted above Physical Exam Vital Signs: Last Vital Signs Pulse 78 12/31/24 12:52 BP 132/72 12/31/24 12:52 Pulse Ox 98 12/31/24 12:52 Oxygen Delivery Method Room Air 12/31/24 12:52 BMI result Body Mass Index 22.3 Vital signs reviewed Physical Examination CONSTITUITIONAL Patient alert and cooperative. Well appearing and in no apparent painful distress HEENT Conjunctiva and sclera clear. ?Pupils equal round and reactive to light. ?No lymphadenopathy. ? CHEST/RESPIRATORY SYSTEM Normal respiratory effort and able to speak in complete sentences. ?Clear to auscultation bilaterally. ?No crackles, rales, rhonchi, wheezes heard. CARDIAC SYSTEM Regular rate and rhythm. ?S1 and S2 heard no murmurs. ?Radial pulses intact bilaterally MSK Hands: ?Good manager hvac strength bilaterally. No deformities noted. ?Tenderness to palpation of the MCPs bilaterally. Wrists: ?Full range of motion at the wrists without pain. ?No tenderness to palpation or synovitis noted to the wrists. Elbows: Full range of motion without pain. No tenderness, weakness, swelling, increased warmth or erythema. Shoulders: Decreased range of motion bilaterally with tenderness to palpation of the bilateral subacromial bursa. Knees: ?No tenderness, swelling, increased warmth or erythema.?Crepitations felt bilaterally. Tenderness to palpation of the bilateral pes anserine bursa. Ankles: Full range of motion. ?No tenderness, swelling, increased warmth or erythema.? Feet: ?Negative squeeze test. ?No tenderness to palpation or swelling of the MTPs. Tender points:?Tenderness to palpation of the bilateral trapezius, supraspinatus, greater trochanters, anterior costochondral junctions, bilateral gluteal areas, bilateral suboccipital muscle insertions SKIN Skin of her hands erythematous and shiny likely early scleroderma changes. MRSS 0 Office Procedures AMB Joint Injection/Aspiration Joint Injection/Aspiration Details: Procedure was explained to the patient and consent was obtained. ? The area of interest was identified and confirmed with patient. ?This was subsequently cleaned with chlorhexidine x3. ? The area was then anesthetized using ethyl chloride spray. 40 mg Kenalog with 1 cc 1% lidocaine was injected without issue. ?Minimal to no bleeding. ?Patient tolerated procedure. Primary Site: right knee Prep: site was prepped using aseptic technique and ethochloride spray was applied Injected: 40 mg of, Kenalog, with 1 mL of, 1% plain lidocaine and in the joint Approach Used: anterolateral Procedure: The patient tolerated the procedure well Coding 08796 - Large joint Procedure code (CPT) selection complete AMB Joint Injection/Aspiration Joint Injection/Aspiration Details: Procedure was explained to the patient and consent was obtained. ? The area of interest was identified and confirmed with patient. ?This was subsequently cleaned with chlorhexidine x3. ? The area was then anesthetized using ethyl chloride spray. 40 mg Kenalog with 1 cc 1% lidocaine was injected without issue. ?Minimal to no bleeding. ?Patient tolerated procedure. Primary Site: left knee Prep: site was prepped using aseptic technique and ethochloride spray was applied Injected: 40 mg of, Kenalog, with 1 mL of, 1% plain lidocaine and in the joint Approach Used: anterolateral Procedure: The patient tolerated the procedure well Coding 80051 - Large joint Procedure code (CPT) selection complete Office Meds lidocaine (PF) 10 mg/mL (1 %) injection solution Performing Provider: Ruby Keen MD Performing Location: [facility] Administered by: Ruby Keen MD on 12/31/24 15:05 Dose Route Admin Location Dispensed Lot Number Expiration Date [facility] Tracer Lathe Set Up Operator 1 mL Infiltration right knee 2 mL [id number] 09/19/26 80471-286-05 [employer] Kenalog 40 mg/mL suspension for injection Performing Provider: Ruby Keen MD Performing Location: [facility] Administered by: Ruby Keen MD on 12/31/24 15:05 Dose Route Admin Location Dispensed Lot Number Expiration Date [facility] Tracer Lathe Set Up Operator 40 mg intra-articular right knee 1 mL [id number] 10/20/26 2383-1673-76 [facility] lidocaine (PF) 10 mg/mL (1 %) injection solution Performing Provider: Ruby Keen MD Performing Location: [facility] Administered by: Ruby Keen MD on 12/31/24 15:05 Dose Route Admin Location Dispensed Lot Number Expiration Date [facility] Tracer Lathe Set Up Operator 1 mL Infiltration left knee 2 mL [id number] 09/19/26 15786-130-39 [employer] Kenalog 40 mg/mL suspension for injection Performing Provider: Ruby Keen MD Performing Location: [facility] Administered by: Ruby Keen MD on 12/31/24 15:05 Dose Route Admin Location Dispensed Lot Number Expiration Date [facility] Tracer Lathe Set Up Operator 40 mg intra-articular left knee 1 mL [id number] 10/20/26 8572-2671-19 [facility] Results Reviewed Results Reviewed: Laboratory Tests 10/10/24 12/26/24 10:11 08:35 WBC 6.6 RBC 4.39 Hgb 12.9 Hct 38.2 Plt Count 120 L D ESR 7 Sodium 140 Potassium 4.1 Chloride 107 Carbon Dioxide 29 BUN 10 Creatinine 0.64 AST 22 ALT 13 Alkaline Phosphatase 82 C-Reactive Protein 0.26 1.31 H Triglycerides 51 Cholesterol 174 LDL Cholesterol, Calc 87 HDL Cholesterol 77 Immunology labs 02/26/24 10/10/24 16:45 10:11 ION-1 Antibody <11 EJ Antibody <11 OJ Antibody <11 Mi-2-Alpha Ab <11 Mi-2-Beta Ab 14 H NXP-2 Ab <11 PL-7 [address]-12 Antibody <11 SRP Ab <11 MDA5 Ab <11 Myos P155/140 TIF1-g Ab <11 SS-A/Ro Antibody <1.0 NEG SS-B/La Antibody <1.0 NEG Sm (Kwon) Antibody <1.0 NEG U1 snRNA A Antibody <11 U1 snRNA C Antibody <11 U1 snRNA 70kD Antibody <11 SM/FINANCIAL SALES ASSOCIATE IgG Antibody <1.0 NEG Scl-70 Scleroderma Ab 21 H A-PM Scleroderma 75 Ab <11 A-PM Scleroderma 100 Ab <11 Double Strand DNA Ab 1 Anti-ds DNA (Crithidia) Negative Th/To FINANCIAL SALES ASSOCIATE Ab <11 U3-FINANCIAL SALES ASSOCIATE (Fibrillarin) Ab <11 RNA Polymerase III RP11 Ab <11 RNA Polymerase III RP155 Ab <11 Centromere B Antibody <11 Centromere Protein A Ab <11 HMGCR IgG Antibody <2 NT5C1A IgG Antibody <5 Beta-2-GPI IgG Ab <2.0 Beta-2-GPI IgA Ab <2.0 Beta-2-GPI IgM Ab <2.0 Anti-Cardiolipin IgG Ab <2.0 Anti-Cardiolipin IgM Ab <2.0 Complement C3 57 L 117 Complement C4 12 L 20 Infectious serologies 10/10/24 10/16/24 10:11 12:24 Hepatitis A IgM Ab Nonreactive Hep Bs Antigen Negative Hep Bs Antibody NONREACTIVE Hep B Core Total Ab Nonreactive Hepatitis C Ab (EIA) Nonreactive TB Test (T-Spot) Com Negative Assessment & Plan Assessment & Plan (1) Seropositive rheumatoid arthritis: Comment: +RF+CCP dx 2018 Methotrexate: prior to 2018- October 2021 effective per patient Leflunomide: October 2022 DC 12/2023 not effective Humira 2023 DC 12/2023 ineffective MTX restarted 12/2023 Code(s): M05.9 - Rheumatoid arthritis with rheumatoid factor, unspecified Category: Medical Plan: #Seropositive RA/Overlap syndrome Patient is a 59-year-old female with seropositive rheumatoid arthritis and likely connective tissue disease overlap syndrome based on positive RENETTA, positive PL 7 and mi 2 beta, Scl 70 and history of low complements which have now resolved. She also has a history of Raynaud's, ulcers and early ILD changes on CT done about a year ago. Flare resolved on prednisone taper. Inflammatory markers elevated likely on a background of her not being on the Actemra. She does have some tenderness to palpation of her MCPs today. However she also has evidence of fibromyalgia with positive tender points throughout her body. Discussed that fibromyalgia is a noninflammatory non autoimmune until on rheumatic disease. And she would need to do consistent stretches to help with this. We will need to monitor her skin tightening. If this does not improve with the tocilizumab we may need to add mycophenolate Plan - Actemra 162mg SC every 2 weeks - Continue methotrexate 20mg weekly, split dosing - Folic acid 1mg daily, consider increasing if patient continues to complain of ulcers - RTC 3 months - Labs before visit: CBC, CMP, ESR, CRP, lipid panel, C3, C4 (2) Osteoporosis: Comment: History of hyper parathyroidism and fragility fractures Code(s): M81.0 - Age-related osteoporosis without current pathological fracture Category: Medical Qualifiers: Encounter type: subsequent encounter Fracture healing: with routine healing Osteoporosis type: age-related Presence of current pathological fracture: with current pathological fracture Qualified Code(s): M80.00XD - Age-related osteoporosis with current pathological fracture, unspecified site, subsequent encounter for fracture with routine healing Plan: #Osteoporosis Patient with osteoporosis and a history of fragility fractures currently on Evenity as per endocrinology. (3) Fibromyalgia: Code(s): M79.7 - Fibromyalgia Category: Medical Plan: #Fibromyalgia Patient's presentation is complicated by fibromyalgia. Recommended stretches which I showed her on my phone on you to. Advised her to do 2 days a week of stretching for the next several months. (4) Primary osteoarthritis of both knees: Code(s): M17.0 - Bilateral primary osteoarthritis of knee Plan: #Bilateral knee OA (5) Encounter for monitoring tocilizumab therapy: Code(s): Z51.81 - Encounter for therapeutic drug level monitoring; Z79.620 - [facility] (current) use of immunosuppressive biologic Plan: #Long-term Use of Tocilizumab Discussed the risks and benefits of tocilizumab with the management of this patient's rheumatic condition. ? Benefits include decreased pain, improved mortality, improved quality of life Risks include LFT abnormalities, elevated triglycerides, GI perforations Contraindicated in a patient with history of diverticulitis Monitoring: ?CBC, CMP, triglycerides (6) Encounter for methotrexate monitoring: Code(s): Z51.81 - Encounter for therapeutic drug level monitoring; Z79.631 - superintendent terminal (current) use of antimetabolite agent Plan: #Long-term Current Use of Methotrexate Discussed with patient the benefits and risks of methotrexate for managing their rheumatic condition Benefits include reduced pain, reduced mortality, maintenance of remission and reduction of flares Risks include oral ulcers, photosensitivity, hepatotoxicity, hematologic toxicity, pneumonitis, flu-like symptoms (especially day after administration), nodulosis, lymphomas ? Limit alcohol and avoid Bactrim ? Monitoring: ?CBC, BMP, LFTs every 3-4 months and hepatitis serologies as needed Plan I spent 40 minutes reviewing the record and labs, taking a history, examining the patient, discussing the treatment plan, ordering diagnostic work up, answered questions from the patient and documenting in the medical record Orders: Orders AMB Joint Injection/Aspiration Today M17.0 - Bilateral primary osteoarthritis of knee AMB Joint Injection/Aspiration Today M17.0 - Bilateral primary osteoarthritis of knee Coding Level of Care Code Est Pt Level 5 (97118) Complex EM visit Add On G2211 Diagnoses Seropositive rheumatoid arthritis M05.9 Age-related osteoporosis with current pathological fracture with routine healing, subsequent encounter M80.00XD Encounter type: subsequent encounter Fracture healing: with routine healing Osteoporosis type: age-related Presence of current pathological fracture: with current pathological fracture Fibromyalgia M79.7 Primary osteoarthritis of both knees M17.0 Encounter for monitoring tocilizumab therapy Z51.81; Z79.620 Encounter for methotrexate monitoring Z51.81; Z79.631 CPT Codes Coding - 02733 Large joint: 49254 - Large joint ([id number]) Coding - Large joint: - Large joint ([id number])
[2024-12-31 12:52] VITALS: BP 132/72; PULSE 78; O2SAT 98; BMI 22.3
--- OUTSIDE RECORDS SUMMARY | 2024-12-31 14:46 | XMS_ITS | Clinical Summary ---
Author Organization [facility] Address [address] [place] [address] Phone Care Team Providers Care Lay Out Helper Name Role Phone Jackie Watt MD [...] complete this topic Insurance Medicaid [place] Aetna [facility] Adv PPO ([id number]) Medicaid [place] Aetna [facility] Adv PPO ([id number]) Care Teams Lay Out Helper Relationship Specialty Start Date End Date Jackie Watt MD [address] [facility] [address] [place], [place] PCP - General 08/01/20
== END 2024-12-31 13:53 | disposition home or self-care (01) ==
LOC: HO.RHE 12:49
PROVIDERS: PCP Internal Medicine; Visit Provider Student in an Organized Health Care Education/Training Program
DX: M05.79 Rheumatoid arthritis with rheumatoid factor of multiple sites without organ or systems involvement (principal); M80.00XD Age-related osteoporosis with current pathological fracture, unspecified site, subsequent encounter for fracture with routine healing; M79.7 Fibromyalgia; M17.0 Bilateral primary osteoarthritis of knee; Z51.81 Encounter for therapeutic drug level monitoring; Z79.620 Long term (current) use of immunosuppressive biologic; Z79.631 Long term (current) use of antimetabolite agent
CPT/HCPCS: 20610; 99215

== ENCOUNTER → 2024-12-31 12:49 | Outpatient (BNVA) | payer MEDICARE, MEDICAID, SELFPAY | PROVIDERS: PCP Internal Medicine; Visit Provider Student in an Organized Health Care Education/Training Program | DX: M17.0 Bilateral primary osteoarthritis of knee (principal); M79.7 Fibromyalgia; M05.9 Rheumatoid arthritis with rheumatoid factor, unspecified; Z51.81 Encounter for therapeutic drug level monitoring; Z79.620 Long term (current) use of immunosuppressive biologic | CPT/HCPCS: 20610; 99212; J2003; J3300 ==

== ENCOUNTER 2025-01-05 14:22 | Outpatient (AMB) | payer MEDICARE, MEDICAID, SELFPAY ==
[2025-01-05 14:33] VITALS: BP 180/90; PULSE 69; O2SAT 97; BMI 22.5
--- NOTE | 2025-01-05 14:33 | MHC.OFFVIS ---
Vital Signs 01/05/25 14:33 Height 5 ft 3 in Weight 126 lb 12.253 oz BMI 22.5 BP 180/90 H Blood Pressure Location Lt brachial Position Sitting Pulse 69 Pulse Source Pulse Oximeter Pulse Oximetry (%) 97 Oxygen Delivery Method Room Air Intake Visit Reasons: COPD Ict Account Manager Required: No Accompanied by: Self / Same As Patient Allergies Penicillins [PENICILLINS] Allergy (Intermediate, Verified 01/05/25 14:36) RASH/HIVES dexamethasone Allergy (Verified 01/05/25 14:36) Eye Swelling adalimumab [From Humira] Adverse Reaction (Intermediate, Verified 01/05/25 14:36) Chest Pain HPI Comments Details: The patient is a 59 year woman with known history of tobacco dependency who apparently underwent a kyphoplasty for compression fractures back in September 2022. After the procedure the patient developed significant shortness of breath and chest discomfort. She did undergo a CT[facility] at [facility] which I personally reviewed demonstrating a left pulmonary cement emboli. The patient was treated initially was her outcome for about a month. Then she was taking off. She has noticed increasing shortness of breath with minimal activity moderate severity. Also developing chest discomfort. She continues to smoke cigarettes. We did talk about the importance of her quitting. We did talk about the findings on the CT scan also demonstrating pulmonary nodules that need close follow-up. And a brief walking oximetry the patient maintain a pulse ox of 98% which is reassuring and the heart rate was stable. Will plan to get blood works including a D-dimer at this time. If the D-dimer is elevated will go ahead and request a CTA to rule out thromboembolic disease. We know that that cement can be thrombogenic and can increase the risk of clotting. 01/24/2023 the patient is here for pulmonary follow-up visit. Overall the patient has been doing well. She is working on quitting smoking altogether. She is using the patch. The patient still having some dyspnea on exertion mild in severity. Overall doing better. She did have blood work during the last visit and she did have an elevated D-dimer therefore she underwent a CTA. She still had the area of residual cement within the pulmonary vasculature on the left hemithorax but otherwise no evidence of any thromboembolic disease. The patient's ground-glass opacities have subsided the patient also has pulmonary nodules some of them have improved as well. She will need some degree follow-up for the pulmonary nodule specially with high risk with her smoking history. She also has significant coronary artery disease that is described as moderately severe calcifications of the coronary arteries. Patient does have dyspnea on exertion and has complained of some chest pressure at times. Therefore I will have her undergo an EKG and also a stress test. Patient may benefit from Cardiology consultation if any abnormalities noted. 07/18/2023 the patient is here for a pulmonary follow-up visit. Overall the patient has been doing fairly well from a respiratory status. She does complaint of back pain. Been bothering her significant amount. She is going to be evaluated for sciatica soon. In the meantime we did review her CT scan of the chest that she had back in November 2022 demonstrating the persistence amount of her vessels secondary to her kyphoplasty. In addition to that underlying pulmonary nodules. She is a high-risk patient because of her smoking history. The patient will need to have a repeat CT scan in a year from her last 1 was be November 2023. she will continue with current respiratory therapy. Will follow-up in December after her CT scan. 01/21/2024 the patient is here for a pulmonary follow-up visit. Overall the patient has been doing okay. She has been developing worsening chest congestion. Also some chest tightness. In addition to that her arthritis has been more active. She had been on biologic therapy for her rheumatoid arthritis and then switched over to methotrexate. She has been on methotrexate now just for several weeks. Still not controlling her arthritis. We did talk about methotrexate be in an excellent medication for rheumatoid arthritis. Although the patient is aware that in some cases it can result in worsening adverse pulmonary symptoms. She did have a CT scan in November which is personally reviewed. I do not believe she was on the methotrexate done. She had a slight area of ground-glass opacity. She also has evidence of chronic bronchitis. We are going to go ahead and treat her for bronchitis with doxycycline. She is going to try to provide us with a sputum culture. In the meantime the patient also has some wheezing and will place her on low dose prednisone taper to see if we can provide some relief. Will monitor closely her symptoms. If the patient continues to have worsening cough, will consider additional imaging at that point. To make sure that she has not developing any adverse effects from the medication. She continues with respiratory therapy. Will follow-up until 3 months. If she does not worsening symptoms prior to this she will call for an earlier assessment. 04/28/2024 the patient is here for a pulmonary follow-up visit. The patient continues to struggle with her breathing. She has still having significant chest congestion shortness breath and chest tightness. She does not feel like the Breo has been helping. She did see her primary care doctor recently and she was placed on another course of antibiotics and prednisone. She felt better and then she stopped the prednisone. Once she stopped the prednisone her arthritis became very active. Therefore she started small dose again. She has also been cutting down the smoking. She is only smoking about 2 cigarettes a day. She needs to quit altogether. She is wanting to try the Nicorette gum. The patient is also following closely with Rheumatology. He again looked at her CT scan of the chest demonstrating some evidence of bronchitis. The patient also has pulmonary nodules. She will need to have follow-up. But at this point she does not need any additional imaging at this time. Will go ahead and treat her effectively with maximizing her respiratory therapy, started her on azithromycin 3 times a week. The patient may also be a good candidate for Daliresp to minimize her prednisone use in to improve her chronic bronchitis symptoms. She needs to be careful because she does not have too much weight to lose. If she notices significant weight loss then will have to either decrease it or stop it. The patient also monitor for any GI symptoms. 07/09/2024 the patient is here for pulmonary follow-up visit. Overall the patient has been doing fair. She has significant arthritic bodies and significant swelling of her small joints due to her rheumatoid arthritis. She has been on the methotrexate 20 mg weekly and also has been under folic acid. Seems like it does help but not enough. She also has osteoporosis making it difficult to place her on prednisone. But at this time she looks extremely uncomfortable and I will send her some prednisone for her to taper down. The patient also has been having worsening respiratory symptoms. She finds that the azithromycin has been helpful although it does not help her throughout. Therefore will try to increase the dose of the 500 mg dose to see if this does more effective. If it does not work she can always call and we can think about another option. The patient continues with respiratory therapy and she does use it regularly. She also continues on the Daliresp. Which will continue for now as well. Therefore, the patient will try the additional medicines and will follow-up in a couple months and see there is any progress. She has any worsening issues she will call for an earlier assessment. 09/15/2024 the patient is here for a pulmonary follow-up visit. Overall she is doing better from a respiratory status. The addition of the azithromycin has been affecting beneficial. She did have an EKG which was normal. She also had a CTA demonstrating a single-vessel disease with 25% obstruction of the RCA. She will follow-up with cardiology. In the meantime the patient did have a CT scan of the chest back in 12/09/2023 which I personally reviewed demonstrating a 6 mm pulmonary nodule. She will need to have a repeat CT scan sometime in November of 2024. The patient continues to smoke so therefore she is high risk for cancer. In the meantime the patient continues to struggle with her arthritis. She is going to follow-up with a new auto fleet manager soon. The patient also has been struggling with her smoking. She has been finding of the Nicorette gum helpful. Although she needs more. Will go ahead and place her on a small patch of 7 mg and also she can do the Nicorette gum as needed. She will continue with the current respiratory regimen. She seems to be tolerating the medicines well. Will follow up sometime in December after her CT scan to address her 6 mm pulmonary nodule. 01/05/2025 the patient is here for a pulmonary follow-up visit. The patient overall has been doing okay from a respiratory status. Recently she did have a respiratory illness and she did get antibiotics prednisone she is back to his baseline. She did follow-up with Rheumatology and her medications were adjusted. She is optimistic that she is going to feel better from a rheumatological standpoint. We did review her recent CT scan of the chest demonstrating stable pulmonary nodules this was done in November 2024. No evidence of any interstitial lung disease what is reassuring. Overall the patient is doing well she continues her respiratory therapy. Will plan to follow-up in 4-6 months. If she has any issues prior to this she will call for an earlier assessment. [facility] Medical History Chest pain Atypical chest pain Bronchitis Hx of nephrolithotomy with removal of calculi Swelling of finger joint of right hand Swelling of finger joint of left hand Hypocalcemia Coronary artery calcification seen on CAT scan Dyspnea Pulmonary nodules COPD (chronic obstructive pulmonary disease) Pulmonary emboli Urinary urgency Hx of hemorrhoids Seropositive rheumatoid arthritis Surgical History Hx of tubal ligation Hx of hand surgery Hx of parathyroidectomy Hx of kyphoplasty History of back surgery History of esophagogastroduodenoscopy (EGD) Hx of colonoscopy Family History Father Cancer Mother Colon cancer HTN (hypertension) Diabetes Breast cancer Brother Lupus HTN (hypertension) Kidney transplanted Sister HTN (hypertension) Cancer Liver transplanted Other FH: cancer FH: mental illness Social History Household Members: None Housing: House Alcohol intake: former Patient Tobacco Use Status: Current everyday Tobacco user Tobacco use type: Cigarette Cigarettes Per Day: 4 Years Smoked: 43 Review of Systems Const Denies fatigue, Denies fever(s), Denies night sweats, Denies poor appetite and Denies weight loss Eyes Details: glasses Reports requires corrective lenses ENT Denies dysphagia Card Denies chest pain and Reports dyspnea on exertion Resp Reports chest congestion, Reports cough, Reports dyspnea on exertion and Reports wheezing GI Denies dysphagia Musc Reports abnormal gait, Reports back pain, Reports myalgias, Reports arthralgias, Reports joint swelling and Reports limited range of motion Skin/Breast Denies pruritus, Denies lesions, Denies rash and Denies jaundice Neuro Denies Abnormal speech present and Reports abnormal gait Psych Reports mood swings Endo Denies fatigue Mason/Lymph Denies as per HPI, Denies easy bleeding and Denies easy bruising Aller/Immun Reports wheezing Physical Exam Vital Signs: Last Vital Signs Pulse 69 01/05/25 14:33 BP 180/90 H 01/05/25 14:33 Pulse Ox 97 01/05/25 14:33 Oxygen Delivery Method Room Air 01/05/25 14:33 BMI result Body Mass Index 22.5 Const General: cooperative, no acute distress, alert and awake Nutritional Appearance: well nourished Orientation/consciousness: patient oriented x3 Limitations: no limitations HEENT Head: Yes normal to inspection and Yes atraumatic Neck Neck: Yes normal visual inspection, Yes full ROM and Yes no lymphadenopathy Chest Chest palpation & inspection: normal inspection of the chest Resp Effort & Inspection: normal respiratory effort and No prolonged expiratory phase Auscultation: no rhonchi, no wheezes and diminished lung sounds Cardio Rate: regular rate Rhythm: regular rhythm GI Palpation (GI): Soft to palpation General: Yes no CVA tenderness Back/Spine/Pelvis Back: no CVA tenderness Neuro General: patient oriented x3 and moves all extremities Speech: No Abnormal speech present Extrem Right upper extremity: Extremity exam: right hand Details: tenderness and swelling Left upper extremity: hand Details: tenderness and swelling Assessment & Plan Assessment & Plan (1) COPD (chronic obstructive pulmonary disease): Code(s): J44.9 - Chronic obstructive pulmonary disease, unspecified Category: Medical Qualifiers: COPD type: COPD with acute lower respiratory infection Qualified Code(s): J44.0 - Chronic obstructive pulmonary disease with (acute) lower respiratory infection (2) Pulmonary nodules: Code(s): R91.8 - Other nonspecific abnormal finding of lung field Category: Medical (3) Coronary artery calcification seen on CAT scan: Code(s): I25.10 - Atherosclerotic heart disease of [place] coronary artery without angina pectoris Category: Medical (4) Pulmonary emboli: Code(s): I26.99 - Other pulmonary embolism without acute cor pulmonale Category: Medical Qualifiers: Acute cor pulmonale presence: unspecified Chronicity: chronic Pulmonary embolism type: unspecified Qualified Code(s): I27.82 - Chronic pulmonary embolism (5) Seropositive rheumatoid arthritis: Comment: +RF+CCP dx 2018 Methotrexate: prior to 2017- October 2021 effective per patient Leflunomide: October 2022 DC 12/2023 not effective Humira 2023 DC 12/2023 ineffective MTX restarted 12/2023 Code(s): M05.9 - Rheumatoid arthritis with rheumatoid factor, unspecified Category: Medical Plan Breztri conitnue Azithromycin 500mg MWF, EKG normal consider stopping Daliresp BISI as needed Smoking cessation nasonex nasal spray F/U 6 months Coding Level of Care Code Est Pt Level 4 (75573) Diagnoses Chronic obstructive pulmonary disease with acute lower respiratory infection J44.0 COPD type: COPD with acute lower respiratory infection Pulmonary nodules R91.8 Coronary artery calcification seen on CAT scan I25.10 Chronic pulmonary embolism, unspecified pulmonary embolism type, unspecified whether acute cor pulmonale present I27.82 Acute cor pulmonale presence: unspecified Chronicity: chronic Pulmonary embolism type: unspecified Seropositive rheumatoid arthritis M05.9 Time Spent (min) 17
--- OUTSIDE RECORDS SUMMARY | 2025-01-05 16:38 | XMS_ITS | Clinical Summary ---
Author Organization [facility] Address [address] [place] [address] Phone Care Team Providers Care Patient Services Manager Name Role Phone Jackie Watt MD Primary [...] complete this topic Insurance Medicaid [place] Aetna [facility] Adv PPO ([id number]) Medicaid [place] Aet[place] M[facility] Adv PPO ([id number]) Care Teams Patient Services Manager Relationship Specialty Start Date End Date Jackie Watt MD [address] [facility] [address] [place], [place] PCP - General 08/01/20
== END 2025-01-05 14:56 | disposition home or self-care (01) ==
LOC: HO.HPS 14:23
PROVIDERS: PCP Internal Medicine; Visit Provider Hospitalist
DX: J44.0 Chronic obstructive pulmonary disease with (acute) lower respiratory infection (principal); R91.8 Other nonspecific abnormal finding of lung field; I25.10 Atherosclerotic heart disease of native coronary artery without angina pectoris; I27.82 Chronic pulmonary embolism; M05.9 Rheumatoid arthritis with rheumatoid factor, unspecified
CPT/HCPCS: 99214

== ENCOUNTER → 2025-01-05 14:22 | Outpatient (BNVA) | payer MEDICARE, MEDICAID, SELFPAY | PROVIDERS: PCP Internal Medicine; Visit Provider Hospitalist | DX: K21.9 Gastro-esophageal reflux disease without esophagitis (principal); J44.0 Chronic obstructive pulmonary disease with (acute) lower respiratory infection; R91.8 Other nonspecific abnormal finding of lung field; I25.10 Atherosclerotic heart disease of native coronary artery without angina pectoris; I27.82 Chronic pulmonary embolism; M05.9 Rheumatoid arthritis with rheumatoid factor, unspecified | CPT/HCPCS: 99212 ==

== ENCOUNTER 2025-01-06 15:59 | Outpatient (AMB) | payer MEDICARE, MEDICAID, SELFPAY ==
--- NOTE | 2025-01-06 16:37 | AM.OFFVISNUR ---
Intake Visit Reasons: Evenity #9 Allergies Penicillins (PENICILLINS) Allergy (Intermediate, Verified 01/05/25 14:36) RASH/HIVES dexamethasone Allergy (Verified 01/05/25 14:36) Eye Swelling adalimumab (From Humira) Adverse Reaction (Intermediate, Verified 01/05/25 14:36) Chest Pain Office Meds romosozumab-aqqg 210 mg/2.34 mL(105 mg/1.17 mL x2)subcutaneous syringe Performing Provider: Roddy Queen MD [place] [facility] [place] Administered by: Beatriz Narvaez RN on 01/06/25 16:37 Dose Route Admin Location Dispensed Lot Number Expiration Date [place] Shank Archer 210 mg subcut bilateral upper arms 2.34 mL [id number] 04/20/27 00465-416-83 [facility] Total Dispensed Waste 2.34 mL 0 % Comments: Patient tolerated injections well. Patient denies any problems with previous injections Assessment & Plan Assessment & Plan Orders: Orders AMB Romosozumab Injection Patient Supplied Today M80.00XD - Age-related osteoporosis with current pathological fracture, unspecified site, subsequent encounter for fracture with routine healing Coding
--- OUTSIDE RECORDS SUMMARY | 2025-01-06 18:00 | XMS_ITS | Clinical Summary ---
Author Organization [facility] Address [address] [place] [address] Phone Care Team Providers Care Supervisor Gluing Name Role Phone Jackie Watt MD Primary [...] complete this topic Insurance Medicaid [place] Aetna [facility] Adv PPO ([id number]) Medicaid [place] Aet[place] MCR Adv PPO ([id number]) Care Teams Supervisor Gluing Relationship Specialty Start Date End Date Jackie Watt MD [address] [facility] [address] [place], [place] PCP - General 08/01/20
== END 2025-01-06 16:37 | disposition home or self-care (01) ==
LOC: HO.ENCR 15:59
PROVIDERS: PCP Internal Medicine; Visit Provider Internal Medicine Endocrinology, Diabetes & Metabolism
DX: M80.00XD Age-related osteoporosis with current pathological fracture, unspecified site, subsequent encounter for fracture with routine healing (principal)

== ENCOUNTER → 2025-01-06 15:59 | Outpatient (BNVA) | payer MEDICARE, MEDICAID, SELFPAY | PROVIDERS: PCP Internal Medicine; Visit Provider Internal Medicine Endocrinology, Diabetes & Metabolism | DX: M80.00XD Age-related osteoporosis with current pathological fracture, unspecified site, subsequent encounter for fracture with routine healing (principal); Z79.620 Long term (current) use of immunosuppressive biologic | CPT/HCPCS: 96372; J3111 ==

== ENCOUNTER 2025-01-12 12:43 | Outpatient (AMB) | payer MEDICARE, MEDICAID, SELFPAY ==
--- NOTE | 2025-01-12 12:46 | MHC.OFFVIS ---
Vital Signs 01/12/25 13:00 Height 5 ft 3 in Weight 126 lb BMI 22.3 BP 146/82 H Blood Pressure Location Rt brachial Position Sitting Pulse 70 Pulse Source Pulse Oximeter Pulse Oximetry (%) 97 Oxygen Delivery Method Room Air Intake Visit Reasons: 6 mo f/u r/s 12/01/24 Intake Note: Est pt for mgmt of IBS, CIC, GERD CC: C.O. GERD persistence w/ Epigastric pain. Pt also reports having difficulties with obtaining their miralax due to financial constraints. The pharmacy is currently trying to charge the pt $70 USD for their miralax generic packets. Pt is hoping we can either Rx an alternative that would be covered under her insurance or file a PA. Graphic Design Manager Required: No Accompanied by: Self / Same As Patient Allergies Penicillins (PENICILLINS) Allergy (Intermediate, Verified 01/12/25 12:57) RASH/HIVES dexamethasone Allergy (Verified 01/12/25 12:57) Eye Swelling adalimumab (From Humira) Adverse Reaction (Intermediate, Verified 01/12/25 12:57) Chest Pain HPI HPI 6 mo f/u r/s 12/01/24: Details: Assessment & Plan (1) Chronic idiopathic constipation: Code(s): K59.04 - Chronic idiopathic constipation Category: Medical (2) GERD (gastroesophageal reflux disease): Code(s): K21.9 - Gastro-esophageal reflux disease without esophagitis Category: Medical (3) Proctalgia fugax: Code(s): K59.4 - Anal spasm Category: Medical Plan She is on bid Aciphex, famotidine, Linzess, dicyclomine, simethicone and Proctosol cream. The Linzess at 145 micro g is no longer moving her bowels well so will increase it to 290 micro g and add bisacodyl. Otherwise she feels her symptoms are well controlled. She is agreeable to six-month follow-up and will call for sooner appointment if this does not work. Medications: New linaclotide (Linzess) 290 mcg PO QAM 30 caps 6RF 30 days K59.04 - Chronic idiopathic constipation simethicone after meals 180 mg PO QID 120 caps 3RF 30 days Changed From qmzuwr-sejoruoa-nhhjwth 24,000-76,000 -120,000 unit 2 caps PO BID 30 days 120 caps 6RF K58.9 - Irritable bowel syndrome, unspecified To pqjxpi-lfdcfytu-lzqytqw 24,000-76,000 -120,000 unit (Creon) 2 caps PO BID 120 caps 6RF 30 days K58.9 - Irritable bowel syndrome, unspecified Refilled bisacodyl 10 mg (2 x 5 mg) PO BEDTIME 60 tabs 6RF K59.04 - Chronic idiopathic constipation rabeprazole 20 mg PO BID 60 tabs 6RF dicyclomine 20 mg PO QID 120 tabs 0RF Discontinued linaclotide Discontinued Reason: Doctor's Order 145 mcg PO QAM 30 caps 6RF K59.04 - Chronic idiopathic constipation Resumed bisacodyl 10 mg (2 x 5 mg) PO BEDTIME 60 tabs 0RF K59.04 - Chronic idiopathic constipation bisacodyl 10 mg (2 x 5 mg) PO BEDTIME 60 tabs 6RF K59.04 - Chronic idiopathic constipation TODAYS VISIT She is on bid Aciphex, famotidine, Linzess 290mcg, dicyclomine, simethicone and Proctosol cream. She is doing well on the Linzess 290mcg over the 145mcg and has not needed the bisacodyl. She has occasional CP that si s tightness that is relieved with standing and stretching. She sees cardiology regularly, it may be breakthrough GERD. I advise her to try TUMS to see if this is breakthrough GERD vs musculoskeletal. RROV 6 mos. PFSH Medical History Chest pain Atypical chest pain Bronchitis Hx of nephrolithotomy with removal of calculi Swelling of finger joint of right hand Swelling of finger joint of left hand Hypocalcemia Coronary artery calcification seen on CAT scan Dyspnea Pulmonary nodules COPD (chronic obstructive pulmonary disease) Pulmonary emboli Urinary urgency Hx of hemorrhoids Seropositive rheumatoid arthritis Surgical History Hx of tubal ligation Hx of hand surgery Hx of parathyroidectomy Hx of kyphoplasty History of back surgery History of esophagogastroduodenoscopy (EGD) Hx of colonoscopy Family History Father Cancer Mother Colon cancer HTN (hypertension) Diabetes Breast cancer Brother Lupus HTN (hypertension) Kidney transplanted Sister HTN (hypertension) Cancer Liver transplanted Other FH: cancer FH: mental illness Social History Household Members: None Housing: House Alcohol intake: former Patient Tobacco Use Status: Current everyday Tobacco user Tobacco use type: Cigarette Cigarettes Per Day: 4 Years Smoked: 43 Review of Systems Const Denies fatigue, Denies fever(s), Denies night sweats, Denies poor appetite and Denies weight loss Eyes Details: glasses Reports requires corrective lenses ENT Reports Normal hearing present, Denies dental pain, Denies dysphagia, Denies hearing loss, Denies mouth pain, Denies odynophagia, Denies throat swelling, Denies tongue swelling and Reports other (Dentition adequate) Card Reports no additional complaints Resp Reports no additional complaints GI Details: Denies abdominal pain, Denies melena, Reports bloating, Denies hematochezia, Reports constipation, Denies GI cramping, Denies dysphagia, Denies excessive flatus, Denies early satiety, Reports heartburn, Denies diarrhea, Denies nausea, Denies odynophagia, Denies vomiting and Denies hematemesis Skin/Breast Denies pruritus, Denies lesions, Denies rash and Denies jaundice Neuro Reports Normal hearing present and Denies Abnormal speech present Endo Denies fatigue Aller/Immun Denies throat swelling and Denies tongue swelling Physical Exam Const General: cooperative, no acute distress, well developed and well groomed Nutritional Appearance: well nourished Orientation/consciousness: oriented to person, oriented to place and oriented to time Limitations: No language barrier and ambulation with cane HEENT Head: Yes normocephalic and Yes atraumatic Eyes General: appearance normal, both eyes and all related structures Pupils: Equal, round and reactive pupils present Neck Neck: Yes normal visual inspection and Yes no lymphadenopathy Thyroid: Thyroid normal Resp Effort & Inspection: normal respiratory effort and able to speak in complete sentences Auscultation: clear to auscultation bilaterally Cardio Rate: regular rate Rhythm: regular rhythm Heart sounds: Normal, physiologic split S2 sound present Peripheral pulses: radial pulses present and posterior tibial pulses present GI Inspection: No distended and No Abdominal panniculus present Palpation (GI): Soft to palpation, nontender, no guarding, not rigid and No hepatosplenomegaly present Percussion: Yes normal to percussion Auscultation: normal bowel sounds Rectal Exam - Female: deferred Skin General skin exam: no rashes or lesions noted, turgor normal, skin not dry, no jaundice, No spider nevi and no striae Rashes: no rashes Nails: normal Neuro General: oriented to person, oriented to place and oriented to time Cranial nerves: Yes Equal, round and reactive pupils present and Yes Normal hearing present Speech: No Abnormal speech present Extrem General: Yes normal to inspection, No clubbing, No cyanosis and No edema Psych Appearance: grossly normal and well kempt Mental Status: mental status grossly normal Speech and movement: Normal speech and movement present Affect: normal affect Attitude: cooperative Thought process: Normal thought process present and not confabulating Thought content: Normal thought content present Insight: Good insight present (Psych) Judgement: Good judgement present (Psych) Assessment & Plan Assessment & Plan (1) GERD (gastroesophageal reflux disease): Code(s): K21.9 - Gastro-esophageal reflux disease without esophagitis Category: Medical (2) Chronic idiopathic constipation: Code(s): K59.04 - Chronic idiopathic constipation Category: Medical (3) Proctalgia fugax: Code(s): K59.4 - Anal spasm Category: Medical Plan She is on bid Aciphex, famotidine, Linzess 290mcg, dicyclomine, simethicone and Proctosol cream. She is doing well on the Linzess 290mcg over the 145mcg and has not needed the bisacodyl. She has occasional CP that si s tightness that is relieved with standing and stretching. She sees cardiology regularly, it may be breakthrough GERD. I advise her to try TUMS to see if this is breakthrough GERD vs musculoskeletal. RROV 6 mos. Medications: New polyethylene glycol 3350 (Miralax) 17 grams PO DAILY 510 grams 6RF 30 days K59.04 - Chronic idiopathic constipation Refilled [id number]-yxbfgsxf-ikurgam 24,000-76,000 -120,000 unit (Creon) 2 caps PO BID 120 caps 6RF K58.9 - Irritable bowel syndrome, unspecified dicyclomine 20 mg PO QID 120 tabs 6RF simethicone (Gas-X Extra Strength) 125 mg PO TID PRN 90 tabs 6RF abdominal distention rabeprazole 20 mg PO BID 60 tabs 6RF dicyclomine 20 mg PO QID 120 tabs 0RF linaclotide (Linzess) 290 mcg PO QAM 30 caps 6RF 30 days K59.04 - Chronic idiopathic constipation Discontinued polyethylene glycol 3350 Discontinued Reason: Doctor's Order 17 grams PO DAILY 28 ea 0RF Coding Level of Care Code Est Pt Level 3 (31165) Diagnoses GERD (gastroesophageal reflux disease) K21.9 Chronic idiopathic constipation K59.04 Proctalgia fugax K59.4
[2025-01-12 13:00] VITALS: BP 146/82; PULSE 70; O2SAT 97; BMI 22.3
--- OUTSIDE RECORDS SUMMARY | 2025-01-12 14:17 | XMS_ITS | Clinical Summary ---
Author Organization [facility] Address [address] [place] [address] Phone Care Team Providers Care Exhibit Designer Name Role Phone Jackie Watt MD Primary [...] complete this topic Insurance Medicaid [place] Aetna [facility] Adv PPO ([id number]) Medicaid [place] Aetna [facility] Adv PPO ([id number]) Care Teams Exhibit Designer Relationship Specialty Start Date End Date Jackie Watt MD [address] [facility] [address] [place], [place] PCP - General 08/01/20
== END 2025-01-12 13:29 | disposition home or self-care (01) ==
LOC: HO.HGI 12:43
PROVIDERS: PCP Internal Medicine; Visit Provider Nurse Practitioner
DX: K21.9 Gastro-esophageal reflux disease without esophagitis (principal); K59.04 Chronic idiopathic constipation; K59.4 Anal spasm
CPT/HCPCS: 99213

== ENCOUNTER → 2025-01-12 12:43 | Outpatient (BNVA) | payer MEDICARE, MEDICAID, SELFPAY | PROVIDERS: PCP Internal Medicine; Visit Provider Nurse Practitioner | DX: K21.9 Gastro-esophageal reflux disease without esophagitis (principal); K59.04 Chronic idiopathic constipation; K59.4 Anal spasm | CPT/HCPCS: 99212 ==

== ENCOUNTER 2025-02-03 16:01 | Outpatient (AMB) | payer MEDICARE, MEDICAID, SELFPAY ==
--- NOTE | 2025-02-03 16:17 | AM.OFFVISNUR ---
Intake Visit Reasons: Evenity#10 Allergies Penicillins (PENICILLINS) Allergy (Intermediate, Verified 01/12/25 12:57) RASH/HIVES dexamethasone Allergy (Verified 01/12/25 12:57) Eye Swelling adalimumab (From Humira) Adverse Reaction (Intermediate, Verified 01/12/25 12:57) Chest Pain Office Meds romosozumab-aqqg 210 mg/2.34 mL(105 mg/1.17 mL x2)subcutaneous syringe Performing Provider: Roddy Queen MD Performing Location: [facility] Endocrinology Administered by: Beatriz Narvaez RN on 02/03/25 16:17 Dose Route Admin Location Dispensed Lot Number Expiration Date NDC Painting Trades Worker 210 mg subcut bilateral upper arms 2.34 mL [id number] 05/21/27 47694-949-88 [facility] Total Dispensed Waste 2.34 mL 0 % Comments: Patient tolerated injection well. Denies any problems with previous injections. Patient already scheduled for f/u in x4 weeks with Dr. Queen Assessment & Plan Assessment & Plan Orders: Orders AMB Romosozumab Injection Patient Supplied Today M80.00XD - Age-related osteoporosis with current pathological fracture, unspecified site, subsequent encounter for fracture with routine healing Coding
== END 2025-02-03 16:15 | disposition home or self-care (01) ==
LOC: HO.ENCR 16:02
PROVIDERS: PCP Internal Medicine; Visit Provider Internal Medicine Endocrinology, Diabetes & Metabolism
DX: M80.00XD Age-related osteoporosis with current pathological fracture, unspecified site, subsequent encounter for fracture with routine healing (principal)

== ENCOUNTER → 2025-02-03 16:01 | Outpatient (BNVA) | payer MEDICARE, MEDICAID, SELFPAY | PROVIDERS: PCP Internal Medicine; Visit Provider Internal Medicine Endocrinology, Diabetes & Metabolism | DX: M80.00XD Age-related osteoporosis with current pathological fracture, unspecified site, subsequent encounter for fracture with routine healing (principal) | CPT/HCPCS: 96372; J3111 ==

== ENCOUNTER 2025-02-25 16:14 | Outpatient (REF) | payer MEDICARE, MEDICAID, SELFPAY ==
[2025-02-25 17:30] LABS: Appearance Urine Clear; Glucose Urine UA Negative (Negative); PH 6.5 (5.0-9.0); Specific Gravity - Urine 1.015 (1.005-1.025); UMIC TRIGGER UA YES
[2025-02-25 17:33] LABS: Anion Gap 14 (12-20); Blood Urea Nitrogen 8 mg/dL (9-16); Carbon Dioxide 26 mmol/L (22-29); Chloride 104 mmol/L (96-108); Estimated Glomerular Filt Rate > 60; Potassium 3.8 mmol/L (3.3-5.1); Sodium 140 mmol/L (135-145)
[2025-02-25 18:23] LABS: Protein/Creatinine Ratio, Ur 0.12 (<0.2); Total Protein Urine Random 12 mg/dL (<12)
== END 2025-02-25 16:15 | disposition home or self-care (01) ==
LOC: HO.LAB 16:14
PROVIDERS: PCP Internal Medicine; Visit Provider Internal Medicine Nephrology
DX: I10 Essential (primary) hypertension (principal); N20.0 Calculus of kidney; R82.994 Hypercalciuria
CPT/HCPCS: 36415; 80051; 81001; 82565; 82570; 84156; 84520

== ENCOUNTER 2025-03-09 15:59 | Outpatient (AMB) | payer MEDICARE, MEDICAID, SELFPAY ==
--- NOTE | 2025-03-09 16:00 | A.OFFVIS_ITS ---
Vital Signs 03/09/25 16:02 Height 5 ft 2.87 in Weight 116 lb 9.992 oz BMI 20.7 BP 130/64 Blood Pressure Location Lt brachial Position Sitting Pulse 84 Pulse Source Pulse Oximeter Pulse Oximetry (%) 97 Oxygen Delivery Method Room Air Intake Visit Reasons: f/u osteoporosis/ Evenity #11. Intake Note: Patient present today for Osteoporosis follow up and Evenity # 11. Sterile Instrument Technician Required: No Accompanied by: Self / Same As Patient Allergies Penicillins (PENICILLINS) Allergy (Intermediate, Verified 03/09/25 16:05) RASH/HIVES dexamethasone Allergy (Verified 03/09/25 16:05) Eye Swelling adalimumab (From Humira) Adverse Reaction (Intermediate, Verified 03/09/25 16:05) Chest Pain HPI Comments Details: 59 YO Female with PMHx hyperparathyroidism status post parathyroid surgery 12/05/20 is seen in consultation at the request of PCP for Osteoporosis. She has previous seen a [facility] diagnosed in few yrs ago . Never Received treatment in the past except for alendronate on 11/13/22. history of pathologic fracture fragility fractures requiring kyphoplasty 10/08/2022. Has few servings of dietary calcium per day Not Takes Calcium supplement Not Takes IU of Vitamin D daily. takes PPI, anticoagulant, antiepileptic not taking glucocorticoid medication. Not Does weight bearing exercise 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: lost 2 inches REPEATER CHIEF history: age 49 - nl menses prior Has history of Kidney stones: Has family history of Osteoporosis and hip fracture in maternal grandmother UTD on dental cleanings and sees dentist every 12 months. Has dentures No planned upcoming dental work or extractions. Does smoke DXA dated 09/28/21 : EXAMINATION: BONE DENSITOMETRY CLINICAL INDICATION: Postmenopausal. COMPARISON: Baseline BD dated 02/04/2018. TECHNIQUE: Using a [employer] DXA System (software version: 13.1) manufactured by [employer], dual-energy x-ray absorptiometry was performed of the lumbar spine and left hip. The images are of good technical quality. Summary results are attached. FINDINGS: AP SPINE L1-L4: Current: BMD 0.894 g/cm2, Z-score -1.3, T-score -2.4, osteopenia, 5.9% decrease from baseline (<5% change is not significant). Baseline: BMD 0.950 g/cm2. LEFT FEMUR, NECK: Current: BMD 0.670 g/cm2, Z-score -1.5, T-score -2.6, osteoporosis. Baseline: BMD 0.777 g/cm2. LEFT FEMUR, TOTAL: Current: BMD 0.704 g/cm2, Z-score -1.6, T-score -2.4, osteopenia, 11.7% decrease from baseline (<5% change is not significant). Baseline: BMD 0.797 g/cm2. IDENTIFIED RISK FACTORS: Rheumatoid arthritis, tobacco use (current smoker), height loss, glucocorticoids (chronic), menopause. HISTORY OF FRACTURE: None listed. MEDICATIONS: Calcium supplements or multivitamin, vitamin D. MM/XR DEXA axial skeleton IMPRESSION: 1. DIAGNOSIS: Osteoporosis based on the lowest T-score value of -2.6 in the femoral neck applying World Health Organization criteria.? ? Labs: Is going to receive an Evenity injection today the 11th month and will receive another of any injection in 03/2025. For full 1 years course. DEXA has improved tremendously [facility] Medical History Chest pain Atypical chest pain Bronchitis Hx of nephrolithotomy with removal of calculi Swelling of finger joint of right hand Swelling of finger joint of left hand Hypocalcemia Coronary artery calcification seen on CAT scan Dyspnea Pulmonary nodules COPD (chronic obstructive pulmonary disease) Pulmonary emboli Urinary urgency Hx of hemorrhoids Seropositive rheumatoid arthritis Surgical History Hx of tubal ligation Hx of hand surgery Hx of parathyroidectomy Hx of kyphoplasty History of back surgery History of esophagogastroduodenoscopy (EGD) Hx of colonoscopy Family History Father Cancer Mother Colon cancer HTN (hypertension) Diabetes Breast cancer Brother Lupus HTN (hypertension) Kidney transplanted Sister HTN (hypertension) Cancer Liver transplanted Other FH: cancer FH: mental illness Social History Household Members: None Housing: House Alcohol intake: former Patient Tobacco Use Status: Current everyday Tobacco user Tobacco use type: Cigarette Cigarettes Per Day: 4 Years Smoked: 43 Assessment & Plan Assessment & Plan (1) Osteoporosis: Comment: History of hyper parathyroidism and fragility fractures Code(s): M81.0 - Age-related osteoporosis without current pathological fracture Category: Medical Qualifiers: Encounter type: subsequent encounter Fracture healing: with routine healing Osteoporosis type: age-related Presence of current pathological fracture: with current pathological fracture Qualified Code(s): M80.00XD - Age- related osteoporosis with current pathological fracture, unspecified site, subsequent encounter for fracture with routine healing Plan: This is a 59-year-old female with a history of primary hyperparathyroidism status post parathyroidectomy with normalization of calcium and PTH with recent vertebral of fragility fracture and kyphoplasty. Secondary workup was negative . She is currently on Evenity for 10 mos duration. Plan is to continue the Evenity injections for a total of 1 year. At that point, in 2 months we will switch to an anti resorptive like Reclast considering significant GERD. . . Orders: Orders Albumin Level 2 Months M80.00XD - Age-related osteoporosis with current pathological fracture, unspecified site, subsequent encounter for fracture with routine healing Basic Metabolic Panel 2 Months M80.00XD - Age-related osteoporosis with current pathological fracture, unspecified site, subsequent encounter for fracture with routine healing Calcium 2 Months M80.00XD - Age-related osteoporosis with current pathological fracture, unspecified site, subsequent encounter for fracture with routine healing Referrals Infusion Center Notification M80.00XD - Age-related osteoporosis with current pathological fracture, unspecified site, subsequent encounter for fracture with routine healing Coding Level of Care Code Est Pt Level 3 (98490) Diagnoses Age-related osteoporosis with current pathological fracture with routine healing, subsequent encounter M80.00XD Encounter type: subsequent encounter Fracture healing: with routine healing Osteoporosis type: age-related Presence of current pathological fracture: with current pathological fracture
[2025-03-09 16:02] VITALS: BP 130/64; PULSE 84; O2SAT 97; BMI 20.7
--- OUTSIDE RECORDS SUMMARY | 2025-03-09 17:29 | XMS_ITS | Clinical Summary ---
Author Organization [facility] Address [address] [place] [address] Phone Care Team Providers Care Diagnostic Technologist Name Role Phone Jackie Watt MD Primary [...] Cancer Screening: Sigmoidoscopy 2013 Influenza Vaccine (#1) 2025 Hepatitis B Vaccine Aged Out No longe r eligible based on patient's age to complete this topic Insurance Medicaid [place] Aetna [facility] Adv PPO ([id number]) Medicaid [place] Aetna M[facility] Adv PPO ([id number]) Care Teams Diagnostic Technologist Relationship Specialty Start Date End Date Jackie Watt MD [address] [facility] [address] [place], [place] PCP - General 08/01/20
== END 2025-03-09 16:23 | disposition home or self-care (01) ==
LOC: HO.ENCR 15:59
PROVIDERS: PCP Internal Medicine; Visit Provider Internal Medicine Endocrinology, Diabetes & Metabolism
DX: M80.00XD Age-related osteoporosis with current pathological fracture, unspecified site, subsequent encounter for fracture with routine healing (principal)
CPT/HCPCS: 99213

== ENCOUNTER → 2025-03-09 15:59 | Outpatient (BNVA) | payer MEDICARE, MEDICAID, SELFPAY | PROVIDERS: PCP Internal Medicine; Visit Provider Internal Medicine Endocrinology, Diabetes & Metabolism | DX: M81.0 Age-related osteoporosis without current pathological fracture (principal) | CPT/HCPCS: 96372; 99212; J3111 ==

== ENCOUNTER 2025-03-10 15:55 | Outpatient (AMB) | payer MEDICARE, MEDICAID, SELFPAY ==
--- NOTE | 2025-03-10 16:02 | HO.NEPHOV ---
Vital Signs 03/10/25 16:07 Height 5 ft 3 in Weight 118 lb 4 oz BMI 20.9 BP 130/66 Blood Pressure Location Rt brachial Position Sitting Pulse 69 Pulse Source Pulse Oximeter Pulse Oximetry (%) 96 Oxygen Delivery Method Room Air Intake Visit Reasons: Hypercalciuria-Conf Radio Time Sales Supervisor Required: No Accompanied by: Self / Same As Patient Allergies Penicillins (PENICILLINS) Allergy (Intermediate, Verified 03/10/25 16:07) RASH/HIVES dexamethasone Allergy (Verified 03/10/25 16:07) Eye Swelling adalimumab (From Humira) Adverse Reaction (Intermediate, Verified 03/10/25 16:07) Chest Pain HPI Comments Details: Brisa was seen in the office for her hypertension. She has rheumatoid arthritis and is followed by her winter sports manager. She has history of parathyroidectomy with normalization of serum calcium. She also has had pulmonary embolism and had been on anticoagulation. She had a brother who developed ESRD due to lupus nephritis. She had denies chest pain, nausea, vomiting, diarrhea, proximal nocturnal dyspnea or orthopnea. She claims to be compliant with her diet and medications. Her renal functions had been stable. She is on RA & is methotrexate. [facility] Medical History Chest pain Atypical chest pain Bronchitis Hx of nephrolithotomy with removal of calculi Swelling of finger joint of right hand Swelling of finger joint of left hand Hypocalcemia Coronary artery calcification seen on CAT scan Dyspnea Pulmonary nodules COPD (chronic obstructive pulmonary disease) Pulmonary emboli Urinary urgency Hx of hemorrhoids Seropositive rheumatoid arthritis Surgical History Hx of tubal ligation Hx of hand surgery Hx of parathyroidectomy Hx of kyphoplasty History of back surgery History of esophagogastroduodenoscopy (EGD) Hx of colonoscopy Family History Father Cancer Mother Colon cancer HTN (hypertension) Diabetes Breast cancer Brother Lupus HTN (hypertension) Kidney transplanted Sister HTN (hypertension) Cancer Liver transplanted Other FH: cancer FH: mental illness Social History Household Members: None Housing: House Alcohol intake: former Patient Tobacco Use Status: Current everyday Tobacco user Tobacco use type: Cigarette Cigarettes Per Day: 4 Years Smoked: 43 Review of Systems Const All systems reviewed & are unremarkable except as noted in HPI and below Physical Exam Vital Signs: Last Vital Signs Pulse 69 03/10/25 16:07 BP 130/66 03/10/25 16:07 Pulse Ox 96 03/10/25 16:07 Oxygen Delivery Method Room Air 03/10/25 16:07 BMI result Body Mass Index 20.9 Const General: comfortable and no acute distress Orientation/consciousness: patient oriented x3 HEENT Head: Yes normocephalic Mouth: Normal oral and palatal mucosa present Eyes EOM: EOMs intact bilaterally Neck Neck: Yes supple Resp Auscultation: clear to auscultation bilaterally Cardio Jugular venous distension: no JVD Rate: regular rate GI Palpation (GI): Soft to palpation Auscultation: normal bowel sounds General: Yes no CVA tenderness Back/Spine/Pelvis Back: no CVA tenderness Skin General skin exam: no rashes or lesions noted Neuro General: patient oriented x3 and moves all extremities Extrem General: Yes no pedal edema Results Reviewed Nephrology Results: Sodium, (135-145) 140 mmol/L 02/25/25 Potassium, (3.3-5.1) 3.8 mmol/L 02/25/25 Chloride, (96-108) 104 mmol/L 02/25/25 Carbon Dioxide, (22-29) 26 mmol/L 02/25/25 BUN, (9-16) 8 mg/dL L 02/25/25 Creatinine, (0.5-1.4) 0.65 mg/dL 02/25/25 Urine Protein, (Neg-Trace) Negative mg/dL 02/25/25 Urine Creatinine 100.38 mg/dL 02/25/25 Protein/Creatinin Ratio, (<0.2) 0.12 02/25/25 Renal US 04/21/24 Assessment & Plan Assessment & Plan (1) Hypertension: Code(s): I10 - Essential (primary) hypertension Category: Medical Qualifiers: Hypertension type: primary hypertension Qualified Code(s): I10 - Essential (primary) hypertension (2) Nephrolithiasis: Code(s): N20.0 - Calculus of kidney Category: Medical (3) Hypercalciuria: Code(s): R82.994 - Hypercalciuria Category: Medical Plan Brisa has longstanding hypertension and is on multiple antihypertensive medications. Blood pressure is at goal now. She has no history of known retinopathy, left ventricular hypertrophy, proteinuria or renal dysfunction. She is on multiple antihypertensive medications . She had hypercalcemia with the primary hyperparathyroidism and had undergone parathyroid surgery. She should be on a low-sodium diet. Doppler of renal arteries were normal. She still has 2 small stones on right and one on the left. She is on HCTZ( on ARB/HCTZ).She is going to be followed up for ongoing monitoring and continued care. All her questions were answered. Orders: Orders Creatinine 6 Months I10 - Essential (primary) hypertension, N20.0 - Calculus of kidney, R82.994 - Hypercalciuria Blood Urea Nitrogen 6 Months I10 - Essential (primary) hypertension, N20.0 - Calculus of kidney, R82.994 - Hypercalciuria Electrolytes 6 Months I10 - Essential (primary) hypertension, N20.0 - Calculus of kidney, R82.994 - Hypercalciuria Calcium 6 Months I10 - Essential (primary) hypertension, N20.0 - Calculus of kidney, R82.994 - Hypercalciuria Protein Creatinine Ratio, Ur 6 Months I10 - Essential (primary) hypertension, N20.0 - Calculus of kidney, R82.994 - Hypercalciuria Coding Level of Care Code Est Pt Level 4 (67028) Diagnoses Primary hypertension I10 Hypertension type: primary hypertension Nephrolithiasis N20.0 Hypercalciuria R82.994
[2025-03-10 16:07] VITALS: BP 130/66; PULSE 69; O2SAT 96; BMI 20.9
--- OUTSIDE RECORDS SUMMARY | 2025-03-10 16:33 | XMS_ITS | Clinical Summary ---
Author Organization [facility] Address [address] [place] [address] Phone Care Team Providers Care Airline Radio Operator Name Role Phone Jackie Watt MD [...] complete this topic Insurance Medicaid [place] Aetna [facility] Adv PPO ([id number]) Medicaid [place] Aetna [facility] Adv PPO ([id number]) Care Teams Airline Radio Operator Relationship Specialty Start Date End Date Jackie Watt MD [address] [facility] [address] [place], [place] PCP - General 08/01/20
== END 2025-03-10 16:36 | disposition home or self-care (01) ==
LOC: HO.HKA 15:55
PROVIDERS: PCP Internal Medicine; Visit Provider Internal Medicine Nephrology
DX: I10 Essential (primary) hypertension (principal); N20.0 Calculus of kidney; R82.994 Hypercalciuria
CPT/HCPCS: 99214

== ENCOUNTER → 2025-03-10 15:55 | Outpatient (BNVA) | payer MEDICARE, MEDICAID, SELFPAY | PROVIDERS: PCP Internal Medicine; Visit Provider Internal Medicine Nephrology | DX: N20.0 Calculus of kidney (principal); I10 Essential (primary) hypertension; R82.994 Hypercalciuria | CPT/HCPCS: 99212 ==

== ENCOUNTER 2025-03-12 13:17 | Outpatient (REF) | payer MEDICARE, MEDICAID, SELFPAY | END 2025-03-12 13:18 | disposition home or self-care (01) | LOC: HO.RHESR 13:17 | PROVIDERS: Visit Provider Student in an Organized Health Care Education/Training Program | DX: Z13.89 Encounter for screening for other disorder (principal) ==

== ENCOUNTER 2025-03-12 14:54 | Outpatient (REF) | payer MEDICARE, MEDICAID, SELFPAY ==
[2025-03-12 17:29] LABS: MN% 81.1 %; PMN% 18.9 %
[2025-03-12 17:33] LABS: RBC Synovial Fluid < 0.002 X10*6/uL
[2025-03-12 20:06] LABS: BF Shift QC OK YES; Lymphocytes Synovial Fluid 6 %; Monocytes Synovial Fluid 2 %; Other Cells Synovial Fluid 92
== END 2025-03-12 14:55 | disposition home or self-care (01) ==
LOC: HO.LNP 14:54
PROVIDERS: PCP Internal Medicine; Visit Provider Student in an Organized Health Care Education/Training Program
DX: M71.22 Synovial cyst of popliteal space [Baker], left knee (principal); M05.9 Rheumatoid arthritis with rheumatoid factor, unspecified
CPT/HCPCS: 20610; 87070; 87073; 87205; 89051; 89060; 99212; J2003; J3300

== ENCOUNTER 2025-03-12 14:54 | Outpatient (AMB) | payer MEDICARE, MEDICAID, SELFPAY ==
--- OUTSIDE RECORDS SUMMARY | 2025-03-12 14:56 | XMS_ITS | Clinical Summary ---
Author Organization [facility] Address [address] [place] [address] Phone Care Team Providers Care Architect Internship Name Role Phone Jackie Watt MD Primary [...] complete this topic Insurance Medicaid [place] Aetna [facility] Adv PPO ([id number]) Medicaid [place] Aetna [facility] Adv PPO ([id number]) Care Teams Architect Internship Relationship Specialty Start Date End Date Jackie Watt MD [address] [facility] [address] [place], [place] PCP - General 08/01/20
[2025-03-12 15:08] VITALS: BP 132/76; PULSE 73; O2SAT 99; BMI 21.0
--- NOTE | 2025-03-12 15:08 | MHC.OFFVIS ---
Vital Signs 03/12/25 15:08 Height 5 ft 3 in Weight 118 lb 6.212 oz BMI 21.0 BP 132/76 Blood Pressure Location Lt brachial Position Sitting Pulse 73 Pulse Source Pulse Oximeter Pulse Oximetry (%) 99 Oxygen Delivery Method Room Air Intake Visit Reasons: US drain Barnhart's cyst Intake Note: Patient is here for US drain Barnhart's cyst. Allergies Penicillins (PENICILLINS) Allergy (Intermediate, Verified 03/12/25 15:09) RASH/HIVES dexamethasone Allergy (Verified 03/12/25 15:09) Eye Swelling adalimumab (From Humira) Adverse Reaction (Intermediate, Verified 03/12/25 15:09) Chest Pain HPI Comments Details: Patient is a 59-year-old female with COPD, hypertension complicated by coronary artery disease, hyperlipidemia, hyperparathyroidism, GERD, osteoporosis, fibromyalgia and seropositive rheumatoid arthritis/likely overlap syndrome here today for follow up Interval History: Patient last seen 12/31/24 with me Today, - Urgent visit for left posterior knee swelling and pain Rheumatologic History: Seropositive rheumatoid arthritis +RF+CCP dx 2017 Methotrexate: prior to 2017- October 2021 effective per patient Leflunomide: October 2022 DC 12/2023 not effective Humira 2023 DC 12/2023 ineffective MTX restarted 12/2023 Overlap syndrome Few dilated loops on nailfold capillaroscopy. History suggestive of Raynaud's. Mild interstitial changes on CT chest. Mild esophageal dysmotility on barium swallow. Comprehensive serologies showed positive RENETTA, mildly positive anti Scl 70 antibody as well as positive PL 7 antibody. On exam there is no skin thickening, no muscle weakness on exam. Current Rheumatology Medication(s): Methotrexate 20 mg weekly Folic acid 1 mg daily Evenity (prescribed by Dr. Queen endocrinology) Actemra 162 mg every 2 weeks sc Prednisone taper PFSH Medical History Chest pain Atypical chest pain Bronchitis Hx of nephrolithotomy with removal of calculi Swelling of finger joint of right hand Swelling of finger joint of left hand Hypocalcemia Coronary artery calcification seen on CAT scan Dyspnea Pulmonary nodules COPD (chronic obstructive pulmonary disease) Pulmonary emboli Urinary urgency Hx of hemorrhoids Seropositive rheumatoid arthritis Surgical History Hx of tubal ligation Hx of hand surgery Hx of parathyroidectomy Hx of kyphoplasty History of back surgery History of esophagogastroduodenoscopy (EGD) Hx of colonoscopy Family History Father Cancer Mother Colon cancer HTN (hypertension) Diabetes Breast cancer Brother Lupus HTN (hypertension) Kidney transplanted Sister HTN (hypertension) Cancer Liver transplanted Other FH: cancer FH: mental illness Social History Household Members: None Housing: House Alcohol intake: former Patient Tobacco Use Status: Current everyday Tobacco user Tobacco use type: Cigarette Cigarettes Per Day: 4 Years Smoked: 43 Physical Exam Vital Signs: Last Vital Signs Pulse 73 03/12/25 15:08 BP 132/76 03/12/25 15:08 Pulse Ox 99 03/12/25 15:08 Oxygen Delivery Method Room Air 03/12/25 15:08 BMI result Body Mass Index 21.0 Office Procedures AMB Joint Injection/Aspiration Joint Injection/Aspiration Details: Date: 03/12/25 Study Type: Limited Ultrasound with Guidance of needle placement Indication: Left posterior knee pain Study Site: Left posterior knee Equipment: Cooley US Brief History: Patient with seropositive rheumatoid arthritis on methotrexate and Actemra presented with pain and swelling to her left posterior knee Findings: Cystic collection was identified anterior to the femur next to the head of the semimembranosus tendon Procedure: Procedure was explained to the patient and informed consent was obtained. ? Risks associated with the procedure were discussed with the patient including but not limited to bleeding, infection, drug reactions and reactions to the topical anesthetic. Patient made aware of signs to look out for infectious complications. The area of interest was identified using ultrasound. ?This was subsequently cleaned with chlorhexidine x 2. ? The area was then anesthetized using ethyl chloride spray. 10cc viscous straw colored fluid removed and sent for analysis 40 mg Kenalog with 1 cc 1% lidocaine was injectedinto the remaining sac without issue. ?Minimal to no bleeding. ?Patient tolerated procedure. Impressions: Successful drainage of left knee Barnhart's cyst and administration of 40 mg Kenalog Primary Site: right knee (Right posterior knee Barnhart's cyst) Prep: site was prepped using sterile technique and ethochloride spray was applied Injected: 40 mg of, Kenalog, with 1 mL of and 1% plain lidocaine Procedure: The patient tolerated the procedure well Coding 55051 - Large joint Additional procedure code (CPT) needed (13835. Ultrasound guidance for needle placement, imaging supervision and interpretation) Office Meds lidocaine (PF) 10 mg/mL (1 %) injection solution Performing Provider: Ruby Keen MD Performing Location: [facility] [place] [facility] Documented (not given) by: Ruby Keen MD on 03/12/25 15:49 Dose Route Admin Location Dispensed Lot Number Expiration Date ND Machine Tank Operator 1 mL Infiltration mL Total Dispensed Waste n/a n/a Kenalog 40 mg/mL suspension for injection Performing Provider: Ruby Keen MD Performing Location: [facility] [place] [facility] Documented (not given) by: Ruby Keen MD on 03/12/25 15:49 Dose Route Admin Location Dispensed Lot Number Expiration Date [place] Machine Tank Operator 40 mg intra-articular mL Total Dispensed Waste n/a n/a Results Reviewed Results Reviewed: Laboratory Tests 12/26/24 02/25/25 08:35 16:28 WBC 6.6 RBC 4.39 Hgb 12.9 Hct 38.2 Plt Count 120 L D ESR 7 Sodium 140 Potassium 3.8 Chloride 104 Carbon Dioxide 26 BUN 8 L Creatinine 0.65 AST 22 ALT 13 C-Reactive Protein 1.31 H Assessment & Plan Assessment & Plan (1) Synovial cyst of left popliteal space: Code(s): M71.22 - Synovial cyst of popliteal space [Barnhrat], left knee Plan: #Left knee Backer's cyst Patient with seropositive rheumatoid arthritis here today for an urgent visit for left posterior knee swelling found to have a Barnhart's cyst on ultrasound. Status post ultrasound-guided aspiration and injection of steroids Plan - s/p Barnhart's cyst aspiration and steroid injection - Fluid sent for analysis: cells, culture, crystals - RTC for regular follow up Plan I spent 30 minutes reviewing the record and labs, taking a history, examining the patient, discussing the treatment plan, and documenting in the medical record Orders: Orders AMB Joint Injection/Aspiration Today M71.22 - Synovial cyst of popliteal space [Barnhart], left knee Medications: New Kenalog (triamcinolone acetonide) 40 mg intra-articular ONCE 1 mL 0RF NS M71.22 - Synovial cyst of popliteal space [Barnhart], left knee lidocaine (PF) 1 mL Infiltration ONCE 2 mL 0RF M71.22 - Synovial cyst of popliteal space [Barnhart], left knee Coding Level of Care Code Est Pt Level 3 (90066) Diagnoses Synovial cyst of left popliteal space M71.22 CPT Codes Coding - 10123 Large joint: 45503 - Large joint ([id number])
== END 2025-03-12 15:44 | disposition home or self-care (01) ==
LOC: HO.RHES 14:54
PROVIDERS: PCP Internal Medicine; Visit Provider Student in an Organized Health Care Education/Training Program
DX: M71.22 Synovial cyst of popliteal space [Baker], left knee (principal)
CPT/HCPCS: 20610; 76942; 99213

== ENCOUNTER 2025-04-08 14:02 | Outpatient (AMB) | payer MEDICARE, MEDICAID, SELFPAY ==
--- NOTE | 2025-04-08 14:57 | AM.OFFVISNUR ---
Intake Visit Reasons: Evenity #12 Allergies Penicillins (PENICILLINS) Allergy (Intermediate, Verified 03/12/25 15:09) RASH/HIVES dexamethasone Allergy (Verified 03/12/25 15:09) Eye Swelling adalimumab (From Humira) Adverse Reaction (Intermediate, Verified 03/12/25 15:09) Chest Pain Office Meds romosozumab-aqqg 210 mg/2.34 mL(105 mg/1.17 mL x2)subcutaneous syringe Performing Provider: Roddy Queen MD Performing Location[place] [facility] [place] Administered by: Beatriz Narvaez RN on 04/08/25 14:57 Dose Route Admin Location Dispensed Lot Number Expiration Date [facility] [place] 210 mg subcut bilateral upper arms 2.34 mL [id number] 04/20/27 66051-975-66 [employer]GEN Total Dispensed Waste 2.34 mL 0 % Comments: Patient here for 12th evenity injection. Patient tolerated well. Plan is to transition patient to IV reclast. Patient is aware we will outreach her to complete labs prior to infusion scheduling her. Assessment & Plan Assessment & Plan Orders: Orders AMB Romosozumab Injection Patient Supplied Today M80.00XD - Age-related osteoporosis with current pathological fracture, unspecified site, subsequent encounter for fracture with routine healing Coding
--- OUTSIDE RECORDS SUMMARY | 2025-04-08 16:03 | XMS_ITS | Clinical Summary ---
Author Organization [facility] Address [address] [place] [address] Phone Care Team Providers Care Dope Pourer Name Role Phone Jackie Watt MD Primary Care Provider [phone] Allergies Active Allergy Reactions Criticality Noted Date [...] complete this topic Insurance Medicaid [place] Aetna [facility] Adv PPO ([id number]) Medicaid [place] Aetna M[facility] Adv PPO ([id number]) Care Teams Dope Pourer Relationship Specialty Start Date End Date Jackie Watt MD [address] [facility] [address] [place], [place] PCP - General 08/01/20
== END 2025-04-08 14:52 | disposition home or self-care (01) ==
LOC: HO.ENCR 14:03
PROVIDERS: PCP Internal Medicine; Visit Provider Internal Medicine Endocrinology, Diabetes & Metabolism
DX: M80.00XD Age-related osteoporosis with current pathological fracture, unspecified site, subsequent encounter for fracture with routine healing (principal)

== ENCOUNTER → 2025-04-08 14:02 | Outpatient (BNVA) | payer MEDICARE, MEDICAID, SELFPAY | PROVIDERS: PCP Internal Medicine; Visit Provider Internal Medicine Endocrinology, Diabetes & Metabolism | DX: M80.00XD Age-related osteoporosis with current pathological fracture, unspecified site, subsequent encounter for fracture with routine healing (principal); Z79.620 Long term (current) use of immunosuppressive biologic | CPT/HCPCS: 96372; J3111 ==

== ENCOUNTER 2025-04-09 14:01 | Outpatient (REF) | payer MEDICARE, MEDICAID, SELFPAY ==
--- NOTE | ~2025-04-09 | XR_ITS ---
EXAMINATION: XR LUMBOSACRAL SPINE CLINICAL INFORMATION: M80.88XA - Other osteoporosis with current pathological fracture, verteb... COMPARISON: August 23, 2022 TECHNIQUE: AP, and lateral: Flexion, neutral, and extension view x-rays of the lumbar spine. FINDINGS: There are 5 nonrib-bearing lumbar segments. There is 21 degrees levoscoliosis. Flexion and extension, there is no sign of instability. L2 demonstrates mild superior endplate compression fracture with central vertebral body methacrylate. Superior endplate fracture is slightly more pronounced than on the prior. L3 demonstrates mild to moderate superior endplate compression fracture with central vertebral body methacrylate. Wedging is slightly more pronounced than on the prior. Mild disc space narrowing is noted at L1-2, L2-3, and L5-S1. Facet sclerosis is present at L4-5 and L5-S1. Moderate vascular calcifications are present in the abdominal aorta. XR/XR lumbar spine 2-3V IMPRESSION: Mild to moderate levoscoliosis increased from 11 degrees previously and now measuring 21 degrees. Mild multifocal degenerative changes. Post kyphoplasty L2 and L3 superior endplate compression fractures with slightly more loss of height than on the prior prekyphoplasty images. Electronically signed by: Angel Lewis MD 04/09/2025 03:58 PM EDT RP
== END 2025-04-09 14:02 | disposition home or self-care (01) ==
LOC: HO.HOSX 14:01
PROVIDERS: PCP Internal Medicine; Visit Provider Neurological Surgery
DX: M80.88XA Other osteoporosis with current pathological fracture, vertebra(e), initial encounter for fracture (principal); G95.20 Unspecified cord compression
CPT/HCPCS: 72100; 99202

== ENCOUNTER 2025-04-09 14:01 | Outpatient (AMB) | payer MEDICARE, MEDICAID, SELFPAY ==
--- NOTE | 2025-04-09 14:34 | A.SPINEOV_ITS ---
Vital Signs 04/09/25 14:37 Height 5 ft 3 in Weight 125 lb BMI 22.1 Intake Visit Reasons: neck pain/numbness tingling Intake Note: Ms. Romero is here today c/o Neck pain and numbness Sr Risk Management Consultant Required: No Allergies Penicillins (PENICILLINS) Allergy (Intermediate, Verified 04/09/25 14:37) RASH/HIVES dexamethasone Allergy (Verified 04/09/25 14:37) Eye Swelling adalimumab (From Humira) Adverse Reaction (Intermediate, Verified 04/09/25 14:37) Chest Pain Physical Exam Vital Signs: BMI result Body Mass Index 22.1 Assessment & Plan Assessment & Plan (1) Osteoporotic compression fracture of spine: Code(s): M80.88XA - Other osteoporosis with current pathological fracture, vertebra(e), initial encounter for fracture Category: Medical (2) Cervical cord compression with myelopathy: Code(s): G95.20 - Unspecified cord compression Category: Medical Plan Dear colleague Thank you for referring Brisa Fernandez to the office today with a chief complaint of balance problems. HPI: This 60-year-old female with an extensive medical history for which she is taking 20 medications comes into the office complaining of dexterity loss, increased numbness in her hands and balance problems. She has fallen frequently. The symptoms are progressive. She also has back pain and after long period of sitting she gets numbness down her legs. She had previous kyphoplasty and L2 L3-4 osteoporotic compression fracture. An MRI of the cervical spine shows moderate spinal cord compression at C5-6. There is no CSF surrounding the spinal cord anymore. At C4-C5 there is a posterior disc bulge causing flattening of the ventral part of the spinal cord. I also reviewed images of the lumbar spine and compared with the previous CT of the lumbar spine and an standing x-ray obtained today. The L2-3 level shows a deformity in the coronal plane with collapse of the disc space on the right side, which was not present at a CT scan of 2022. Physical Exam: She ambulates with a cane. I was not able to find any signs of cervical myelopathy on physical exam. Impression/Plan: This patient is suffering from cervical myelopathy by history without symptoms on exam. The patient states that her symptoms are progressive. The MRI does show spinal cord compression, especially at C5-6. Based on her history I offered her an anterior diskectomy and fusion C5-6, possibly also to include C4-C5. Before we go that route we need a clearance of her nuclear power reactor operator fur weigher and the wheel shop supervisor needs to give approval to stop methotrexate and Actemra. As far as the predominantly right leg pain and numbness after prolonged sitting. I think the collapse of the L2-3 disc space on the right side maybe responsible for these symptoms. I think we should 1st address the cervical part before we can discuss the lumbar part further. Her osteoporosis may prevent me from doing anything in the lumbar spine. The patient will return to my clinic as soon as she has obtained the surgical clearances. Thank you for allowing me to participate in your patients care. total time spent was 50 minutes in counseling ,coordination of plan, personal review of imaging, surgical decision making and subsequent plan Eliecer Kumari MD, PhD Spine Fellowship Trained Neurosurgeon Director, [facility] Orders: Orders XR lumbar spine 2-3V Today M80.88XA - Other osteoporosis with current pathological fracture, vertebra(e), initial encounter for fracture Coding Level of Care Code New Pt Level 4 (55413) Diagnoses Osteoporotic compression fracture of spine M80.88XA Cervical cord compression with myelopathy G95.20
[2025-04-09 14:37] VITALS: BMI 22.1
== END 2025-04-09 15:56 | disposition home or self-care (01) ==
LOC: HO.HNS 14:02
PROVIDERS: PCP Internal Medicine; Visit Provider Neurological Surgery
DX: M80.88XA Other osteoporosis with current pathological fracture, vertebra(e), initial encounter for fracture (principal); G95.20 Unspecified cord compression
CPT/HCPCS: 99204

== ENCOUNTER → 2025-04-09 15:37 | Outpatient (BNV) | payer MEDICARE, MEDICAID, SELFPAY | PROVIDERS: PCP Internal Medicine; Visit Provider Radiology Diagnostic Radiology | DX: M51.360 Other intervertebral disc degeneration, lumbar region with discogenic back pain only (principal) | CPT/HCPCS: 72100 ==

== ENCOUNTER 2025-04-10 10:05 | Outpatient (REF) | payer MEDICARE, MEDICAID, SELFPAY ==
--- OUTSIDE RECORDS SUMMARY | 2025-04-10 10:08 | XMS_ITS | Clinical Summary ---
Author Organization [facility] Address [address] [place] [address] Phone Care Team Providers Care Highway Worker Name Role Phone Jackie Watt MD Primary [...] complete this topic Insurance Medicaid [place] Aetna [facility] Adv PPO ([id number]) Medicaid [place] Aetna [facility] Adv PPO ([id number]) Care Teams Highway Worker Relationship Specialty Start Date End Date Jackie Watt MD [address] [facility] [address] [place], [place] PCP - General 08/01/20
[2025-04-10 11:35] LABS: Alanine Aminotransferase 18 U/L (0-31); Aspartate Amino Transferase 26 U/L (5-31); Estimated Glomerular Filt Rate > 60
[2025-04-10 11:38] LABS: Hematocrit 40.3 % (37.0-47.0); Hemoglobin 13.8 g/dl (12.0-16.0); Imm Gran Abs Auto 0.02 X10*3/uL (0.00-0.03); Imm Gran Pct Auto 0.3 % (0.0-0.4); Lymphocytes Absolute Auto 2.5 X10*3/uL (1.2-4.9); MANUAL DIFF FLAG SCAN; Mean Corpuscular HGB Conc 34.2 g/dl (31.0-35.0); Mean Corpuscular Hemoglobin 30.1 pg (27.0-33.0); Mean Corpuscular Volume 88.0 fL (80.0-98.0); NRBC Abs Auto 0.000 X10*3/uL (0.0-0.012); NRBC Pct Auto 0.0 /100WBC (0.0-0.2); PLT CLUMP 1; Red Blood Count 4.58 X10*6/uL (4.20-5.50); SCAN SMEAR FLAG 1
[2025-04-10 11:42] LABS: Alanine Aminotransferase 16 U/L (0-31); Albumin Level 4.7 g/dL (3.5-5.0); Alkaline Phosphatase 62 U/L (39-117); Anion Gap 10 (12-20); Aspartate Amino Transferase 25 U/L (5-31); Blood Urea Nitrogen 6 mg/dL (9-16); Calcium 9.1 mg/dL (8.4-10.2); Carbon Dioxide 29 mmol/L (22-29); Chloride 100 mmol/L (96-108); Cholesterol 186 mg/dL (<200); Estimated Glomerular Filt Rate > 60; HDL Cholesterol 87 mg/dL (>40); Potassium 3.8 mmol/L (3.3-5.1); Sodium 135 mmol/L (135-145); Total Protein 6.7 g/dL (6.5-8.0); Triglycerides 51 mg/dL (<150)
[2025-04-10 11:56] LABS: Platelet Count 114 X10*3/uL (160-400); White Blood Count 6.7 X10*3/uL (4.8-10.8)
[2025-04-10 12:03] LABS: Thyroid Stimulating Hormone 1.65 uIU/mL (0.32-4.0)
== END 2025-04-10 10:06 | disposition home or self-care (01) ==
LOC: HO.LAB 10:05
PROVIDERS: Absent Provider Internal Medicine; PCP Internal Medicine; Visit Provider Student in an Organized Health Care Education/Training Program
DX: I10 Essential (primary) hypertension (principal); M05.9 Rheumatoid arthritis with rheumatoid factor, unspecified; M81.8 Other osteoporosis without current pathological fracture; E78.00 Pure hypercholesterolemia, unspecified; R63.4 Abnormal weight loss; M79.605 Pain in left leg
CPT/HCPCS: 36415; 80053; 80061; 82306; 82565; 84443; 84450; 84460; 85025; 85652; 86140

== ENCOUNTER 2025-04-15 11:53 | Outpatient (REF) | payer MEDICARE, MEDICAID, SELFPAY ==
--- OUTSIDE RECORDS SUMMARY | 2025-05-25 14:43 | XMS_ITS | Clinical Summary ---
Author Organization [facility] Address [address] [place] [address] Phone Care Team Providers Care Portfolio Assistant Name Role Phone Jackie Watt MD Primary [...] complete this topic Insurance Medicaid [place] Aetna [facility] Adv PPO ([id number]) Medicaid [place] Aetna M[facility] Adv PPO ([id number]) Care Teams Portfolio Assistant Relationship Specialty Start Date End Date Jackie Watt MD [address] [facility] [address] [place], [place] PCP - General 08/01/20
== END 2025-04-15 11:54 | disposition home or self-care (01) ==
LOC: HO.RHESR 11:53
PROVIDERS: Visit Provider Student in an Organized Health Care Education/Training Program
DX: Z13.89 Encounter for screening for other disorder (principal)

== ENCOUNTER 2025-04-15 15:06 | Outpatient (AMB) | payer MEDICARE, MEDICAID, SELFPAY ==
--- NOTE | 2025-04-15 15:39 | MHC.OFFVIS ---
Vital Signs 04/15/25 15:45 Height 5 ft 3 in Weight 117 lb 8.102 oz BMI 20.8 BP 142/90 H Blood Pressure Location Lt brachial Position Sitting Pulse 70 Pulse Source Pulse Oximeter Pulse Oximetry (%) 97 Oxygen Delivery Method Room Air Intake Visit Reasons: Ultrasound barnhart's cyst Intake Note: Patient presents for Ultrasound Barnhart's Cyst follow up. Allergies Penicillins (PENICILLINS) Allergy (Intermediate, Verified 04/15/25 15:42) RASH/HIVES dexamethasone Allergy (Verified 04/15/25 15:42) Eye Swelling adalimumab (From Humira) Adverse Reaction (Intermediate, Verified 04/15/25 15:42) Chest Pain Medication List - Last Reconciled 04/15/25 by Ruby Keen MD acetaminophen ER 650 mg PO TID PRN albuterol sulfate mg inhalation albuterol sulfate 90 mcg/actuation 2 inhalations inhalation QID aspirin 81 mg PO DAILY azithromycin 500 mg PO QWEEK 28 days bisacodyl 10 mg (2 x 5 mg) PO BEDTIME tslfwyovcf-vsjxnmez-gdadibanso 160-9-4.8 mcg/actuation (Breztri Aerosphere) 2 inhalations inhalation BID buspirone 15 mg PO BID celecoxib 100 mg PO DAILY cetirizine 10 mg PO DAILY cholecalciferol (vitamin D3) 50 mcg PO DAILY dicyclomine 20 mg PO QID ezetimibe 10 mg PO DAILY folic acid 1 mg PO DAILY hydrocortisone 2.5% 1 appl UT BID isosorbide mononitrate ER 30 mg PO DAILY lidocaine 1.8% (ZTlido) 1 patch topical DAILY PRN linaclotide (Linzess) 290 mcg PO QAM 30 days iptiyx-jbijisxu-pmbwule 24,000-76,000 -120,000 unit (Creon) 2 caps PO BID lorazepam 1 mg PO BID lurasidone mg PO DAILY methotrexate sodium 20 mg (8 x 2.5 mg) PO QWEEK metoprolol succinate ER 100 mg PO DAILY mometasone 50 mcg/actuation intranasal DAILY montelukast 10 mg PO DAILY naloxone 4 mg/actuation 0 sprays intranasal nebulizer and compressor ([employer] Aerosol Delivery System) As directed nicotine (polacrilex) (Nicorette) 4 mg buccal Q4H PRN nifedipine ER 120 mg (2 x 60 mg) PO DAILY nortriptyline 25 mg PO BEDTIME 90 days oxycodone mg PO oxycodone ER (OxyContin) 30 mg PO BID polyethylene glycol 3350 (Miralax) 17 grams PO DAILY 30 days prednisolone acetate 1% drps ophthalmic (eye) prednisolone sodium phosphate mg PO pregabalin 300 mg PO BID rabeprazole 20 mg PO BID roflumilast 500 mcg PO DAILY romosozumab-aqqg (Evenity) 210 mg (2.34 mL) subcut .qmonthly rosuvastatin 10 mg PO DAILY simethicone (Gas-X Extra Strength) 125 mg PO TID PRN tamsulosin (Flomax) 0.4 mg PO BEDTIME tizanidine 6 mg PO BEDTIME PRN tocilizumab (Actemra ACTPen) 162 mg (0.9 mL) subcut Q2W valacyclovir 1,000 mg PO DAILY valsartan-hydrochlorothiazide 320-25 mg 1 tab PO DAILY vibegron (Gemtesa) 75 mg PO DAILY zolpidem 10 mg PO BEDTIME PRN 30 days HPI Comments Details: Patient is a 59-year-old female with COPD, hypertension complicated by coronary artery disease, hyperlipidemia, hyperparathyroidism, GERD, osteoporosis, fibromyalgia and seropositive rheumatoid arthritis/likely overlap syndrome here today for follow up Interval History: Patient last seen 03/12/25 with me - On methotrexate 20mg weekly, folic acid 1mg daily, and actemra 162mg every 2 weeks - Urgent visit for left posterior knee swelling and pain - US guided barnhart's cyst aspiration and steroid injection performed Patient did well but noted recurrent swelling of the cyst Sent to ortho for eval for cyst removal and told ortho does not perform that procedure Today - On methotrexate 20mg weekly, folic acid 1mg daily, and actemra 162mg every 2 weeks - Complaining of worsening joint pain to bilateral hands - Also with recurrent swelling of the posterior left knee Rheumatologic History: Seropositive rheumatoid arthritis +RF+CCP dx 2018 Methotrexate: prior to 2017- October 2021 effective per patient Leflunomide: October 2022 DC 12/2023 not effective Humira 2023 DC 12/2023 ineffective MTX restarted 12/2023 Overlap syndrome Few dilated loops on nailfold capillaroscopy. History suggestive of Raynaud's. Mild interstitial changes on CT chest. Mild esophageal dysmotility on barium swallow. Comprehensive serologies showed positive RENETTA, mildly positive anti Scl 70 antibody as well as positive PL 7 antibody. On exam there is no skin thickening, no muscle weakness on exam. Current Rheumatology Medication(s): Methotrexate 20 mg weekly Folic acid 1 mg daily Evenity (prescribed by Dr. Queen endocrinology) Actemra 162 mg every 2 weeks sc COUNT INCLUDES THE [facility] Medical History Chest pain Atypical chest pain Bronchitis Hx of nephrolithotomy with removal of calculi Swelling of finger joint of right hand Swelling of finger joint of left hand Hypocalcemia Coronary artery calcification seen on CAT scan Dyspnea Pulmonary nodules COPD (chronic obstructive pulmonary disease) Pulmonary emboli Urinary urgency Hx of hemorrhoids Seropositive rheumatoid arthritis Surgical History Hx of tubal ligation Hx of hand surgery Hx of parathyroidectomy Hx of kyphoplasty History of back surgery History of esophagogastroduodenoscopy (EGD) Hx of colonoscopy Family History Father Cancer Mother Colon cancer HTN (hypertension) Diabetes Breast cancer Brother Lupus HTN (hypertension) Kidney transplanted Sister HTN (hypertension) Cancer Liver transplanted Other FH: cancer FH: mental illness Social History Household Members: None Housing: House Alcohol intake: former Patient Tobacco Use Status: Current everyday Tobacco user Tobacco use type: Cigarette Cigarettes Per Day: 4 Years Smoked: 43 Review of Systems Const Details: Review of Systems Constitutional: Denies fever, chills, weight loss ENT: Denies vision changes, eye pain or eye redness, dental caries, dry mouth GI: Denies nausea, vomiting, diarrhea, abdominal pain, change in BM Pulm: Denies SOB, BYRD, hemoptysis, wheezing Cards: Denies chest pain, palpitations Skin: Denies Raynaud's, rash, nail changes, photosensitivity, HEAVY EQUIPMENT SALES ASSOCIATE: Denies headaches, weakness, paresthesias, recurrent falls MSK: as per HPI All other systems reviewed and are unremarkable except noted above Physical Exam Exam Exam: Vital signs reviewed Physical Examination CONSTITUITIONAL Patient alert and cooperative. Well appearing and in no apparent painful distress MSK Hands Right Hand: Able to make a fist. No swelling but TTP of the MCPs and PIPs. No tenderness to palpation of the DIPs. Left Hand: Able to make a fist. No swelling but TTP of the MCPs and PIPs. No tenderness to palpation of the DIPs. Herbedens nodes noted bilaterally Wrists Right Wrist: Full ROM to flexion and extension. No swelling but TTP Left Wrist: Full ROM to flexion and extension. No swelling but TTP Elbows Right Elbow: No swelling or TTP. No TTP of the medial epicondyle. No TTP of the lateral epicondyle Left Elbow: No swelling or TTP. No TTP of the medial epicondyle. No TTP of the lateral epicondyle Shoulders Right shoulder: Decreased ROM. No swelling noted. No TTP of the AC joint. No TTP of the subacromial bursa. No TTP of the posterior shoulder Left shoulder: Decreased ROM.No swelling noted. No TTP of the AC joint. No TTP of the subacromial bursa. No TTP of the posterior shoulder Knees Right knee: No swelling noted. No TTP of the knee joint line. No TTP of pes anserine bursa Left knee: Decreased ROM. Swelling noted to popliteal fossa No TTP of the knee joint line. No TTP of pes anserine bursa. Ankles Right ankle: Good ankle dorsiflexion and plantar flexion. No swelling. No TTP of the ankle joint Left ankle: Good ankle dorsiflexion and plantar flexion. No swelling. No TTP of the ankle joint Feet Right foot: Negative squeeze test Left foot: Negative squeeze test Tender points? No tenderness to palpation of the bilateral trapezius, supraspinatus, anterior costochondral junctions, bilateral suboccipital muscle insertions SKIN No rashes Vital Signs: Last Vital Signs Pulse 70 04/15/25 15:45 BP 142/90 H 04/15/25 15:45 Pulse Ox 97 04/15/25 15:45 Oxygen Delivery Method Room Air 04/15/25 15:45 BMI result Body Mass Index 20.8 Office Procedures AMB Joint Injection/Aspiration Joint Injection/Aspiration Details: Date: 04/15/27 Study Type: Limited Ultrasound with Guidance of needle placement Indication: Left posterior knee swelling Study Site: Left Posterior Knee Equipment: [employer] Findings: Orthogonal views of the posterior aspect of the left knee were obtained in grayscale and Doppler. Posterior trans view of the left knee revealed a large cystic structure noted in the popliteal fossa in the region of the medial head of the gastrocnemius and the semimembranosus tendon by visual estimation (machine unable to give numerical diameters) Procedure: Procedure was explained to the patient and informed consent was obtained for ultrasound-guided glucocorticoid injection of the left posterior knee Risks associated with the procedure were discussed with the patient including but not limited to bleeding, infection, drug reactions and reactions to the topical anesthetic. Patient made aware of signs to look out for infectious complications. The left posterior knee was sterilely prepped with chlorhexidine and anesthetized with lidocaine spray. A 22 gauge 1.5 in needle was advanced into the cyst under direct ultrasound visualization using in plane technique. 7cc viscous straw colored fluired removed, and 80 mg of Kenalog was injected. The procedure was well tolerated. Impressions: Left knee Barnhart's cyst Successful aspiration and injection of the left posterior knee using ultrasound guidance Primary Site: left knee Prep: site was prepped using aseptic technique and ethochloride spray was applied Injected: 80 mg of and Kenalog Procedure: The patient tolerated the procedure well Coding 07343 - Large joint Additional procedure code (CPT) needed (Ultrasound guided: 27698) Office Meds Kenalog 40 mg/mL suspension for injection Performing Provider: Ruby Keen MD Performing Location: [facility] [place] [facility] Administered by: Ruby Keen MD on 04/16/25 15:51 Dose Route Admin Location Dispensed Lot Number Expiration Date [facility] Property Preservation Specialist 80 mg intrabursal left knee 2 mL [id number] 11/19/26 [id number] [employer] Total Dispensed Waste 2 mL 0 % Results Reviewed Results Reviewed: Laboratory Tests 04/10/25 10:25 WBC 6.7 RBC 4.58 Hgb 13.8 Hct 40.3 Plt Count 114 L ESR 2 Sodium 135 Potassium 3.8 Chloride 100 Carbon Dioxide 29 BUN 6 L Creatinine 0.68 AST 25 ALT 16 C-Reactive Protein < 0.04 25-OH Vitamin D Total 31.1 Immunology labs 02/26/24 10/10/24 16:45 10:11 ION-1 Antibody <11 EJ Antibody <11 OJ Antibody <11 Mi-2-Alpha Ab <11 Mi-2-Beta Ab 14 H NXP-2 Ab <11 PL-[address]-12 Antibody <11 SRP Ab <11 MDA5 Ab <11 Myos P155/140 TIF1-g Ab <11 SS-A/Ro Antibody <1.0 NEG SS-B/La Antibody <1.0 NEG Sm (Kwon) Antibody <1.0 NEG U1 snRNA A Antibody <11 U1 snRNA C Antibody <11 U1 snRNA 70kD Antibody <11 SM/METAL WINDOW SCREEN ASSEMBLER IgG Antibody <1.0 NEG Scl-70 Scleroderma Ab 21 H A-PM Scleroderma 75 Ab <11 A-PM Scleroderma 100 Ab <11 Double Strand DNA Ab 1 Anti-ds DNA (Crithidia) Negative Th/To METAL WINDOW SCREEN ASSEMBLER Ab <11 U3-METAL WINDOW SCREEN ASSEMBLER (Fibrillarin) Ab <11 RNA Polymerase III RP11 Ab <11 RNA Polymerase III RP155 Ab <11 Centromere B Antibody <11 Centromere Protein A Ab <11 HMGCR IgG Antibody <2 NT5C1A IgG Antibody <5 Beta-2-GPI IgG Ab <2.0 Beta-2-GPI IgA Ab <2.0 Beta-2-GPI IgM Ab <2.0 Anti-Cardiolipin IgG Ab <2.0 Anti-Cardiolipin IgM Ab <2.0 Complement C3 57 L 117 Complement C4 12 L 20 Infectious serologies 10/10/24 10/16/24 10:11 12:24 Hepatitis A IgM Ab Nonreactive Hep Bs Antigen Negative Hep Bs Antibody NONREACTIVE Hep B Core Total Ab Nonreactive Hepatitis C Ab (EIA) Nonreactive TB Test (T-Spot) Com Negative Body Fluids 03/12/25 14:54 Synovial WBC 0.420 Synovial RBC < 0.002 Synovial Lymphocytes 6 Synovial Monocytes 2 Synovial Other Cells 92 Assessment & Plan Assessment & Plan (1) Seropositive rheumatoid arthritis: Comment: +RF+CCP dx 2018 Methotrexate: prior to 2018- October 2021 effective per patient Leflunomide: October 2022 DC 12/2023 not effective Humira 2023 DC 12/2023 ineffective MTX restarted 12/2023 Code(s): M05.9 - Rheumatoid arthritis with rheumatoid factor, unspecified Category: Medical Plan: #Seropositive RA/Overlap syndrome Patient is a 60-year-old female with seropositive rheumatoid arthritis and likely connective tissue disease overlap syndrome based on positive RENETTA, positive PL 7 and mi 2 beta, Scl 70 and history of low complements which have now resolved. She also has a history of Raynaud's, ulcers and early ILD changes on CT done about a year ago. Currently in a flare of her disease. She is close to her Actemra due and will benefit from increased frequency of Actemra. Plan - Actemra 162mg SC every week - Continue methotrexate 20mg weekly, split dosing - Folic acid 1mg daily, consider increasing if patient continues to complain of ulcers - Prednisone Take 20mg for 7 days then 15mg for 7 days then 10mg for 7 days then 5mg for 7 days then stop - RTC 4 months - Labs before visit: CBC, CMP, ESR, CRP, lipid panel, C3, C4 (2) Synovial cyst of left popliteal space: Code(s): M71.22 - Synovial cyst of popliteal space [Barnhart], left knee Plan: #Left knee Backer's cyst Patient with seropositive rheumatoid arthritis here today for an urgent visit for left posterior knee swelling found to have a Barnhart's cyst on ultrasound. Status post ultrasound-guided aspiration and injection of steroids. This is the second time for this procedure. Last fluid analysis consistent with non inflammatory collection Plan - s/p Barnhart's cyst aspiration and steroid injection - RTC for regular follow up (3) Osteoporosis: Comment: History of hyper parathyroidism and fragility fractures Code(s): M81.0 - Age-related osteoporosis without current pathological fracture Category: Medical Qualifiers: Osteoporosis type: age-related Presence of current pathological fracture: with current pathological fracture Encounter type: subsequent encounter Fracture healing: with routine healing Qualified Code(s): M80.00XD - Age-related osteoporosis with current pathological fracture, unspecified site, subsequent encounter for fracture with routine healing Plan: #Osteoporosis Patient with osteoporosis and a history of fragility fractures currently on Evenity as per endocrinology. (4) Fibromyalgia: Code(s): M79.7 - Fibromyalgia Category: Medical Plan: #Fibromyalgia Patient's presentation is complicated by fibromyalgia. Recommended stretches which I showed her on my phone on you to. Advised her to do 2 days a week of stretching for the next several months. (5) Encounter for monitoring tocilizumab therapy: Code(s): Z51.81 - Encounter for therapeutic drug level monitoring; Z79.620 - FDC (current) use of immunosuppressive biologic Plan: #Long-term Use of Tocilizumab Discussed the risks and benefits of tocilizumab with the management of this patient's rheumatic condition. ? Benefits include decreased pain, improved mortality, improved quality of life Risks include LFT abnormalities, elevated triglycerides, GI perforations Contraindicated in a patient with history of diverticulitis Monitoring: ?CBC, CMP, triglycerides (6) Encounter for methotrexate monitoring: Code(s): Z51.81 - Encounter for therapeutic drug level monitoring; Z79.631 - superintendent container terminal (current) use of antimetabolite agent Plan: #Long-term Current Use of Methotrexate Discussed with patient the benefits and risks of methotrexate for managing their rheumatic condition Benefits include reduced pain, reduced mortality, maintenance of remission and reduction of flares Risks include oral ulcers, photosensitivity, hepatotoxicity, hematologic toxicity, pneumonitis, flu-like symptoms (especially day after administration), nodulosis, lymphomas ? Limit alcohol and avoid Bactrim ? Monitoring: ?CBC, BMP, LFTs every 3-4 months and hepatitis serologies as needed Plan I spent 30 minutes reviewing the record and labs, taking a history, examining the patient, discussing the treatment plan, ordering diagnostic work up and documenting in the medical record Orders: Orders AMB Joint Injection/Aspiration 04/15/25 M71.22 - Synovial cyst of popliteal space [Barnhart], left knee Medications: New celecoxib 100 mg PO DAILY 90 caps 0RF M19.041 - Primary osteoarthritis, right hand, M19.042 - Primary osteoarthritis, left hand Coding Level of Care Code Est Pt Level 4 (94141) Complex EM visit Add On G2211 Diagnoses Seropositive rheumatoid arthritis M05.9 Synovial cyst of left popliteal space M71.22 Age-related osteoporosis with current pathological fracture with routine healing, subsequent encounter M80.00XD Osteoporosis type: age-related Presence of current pathological fracture: with current pathological fracture Encounter type: subsequent encounter Fracture healing: with routine healing Fibromyalgia M79.7 Encounter for monitoring tocilizumab therapy Z51.81; Z79.620 Encounter for methotrexate monitoring Z51.81; Z79.631 CPT Codes Coding - 88509 Large joint: 79463 - Large joint ([id number])
[2025-04-15 15:45] VITALS: BP 142/90; PULSE 70; O2SAT 97; BMI 20.8
--- OUTSIDE RECORDS SUMMARY | 2025-04-15 19:23 | XMS_ITS | Clinical Summary ---
Author Organization [facility] Address [address] [place] [address] Phone Care Team Providers Care Continuous Drier Helper Name Role Phone Jackie Watt MD [...] complete this topic Insurance Medicaid [place] Aetna [facility] Adv PPO ([id number]) Medicaid [place] Aetna M[facility] Adv PPO ([id number]) Care Teams Continuous Drier Helper Relationship Specialty Start Date End Date Jackie Watt MD [address] [facility] [address] [place], [place] PCP - General 08/01/20
== END 2025-04-15 16:59 | disposition home or self-care (01) ==
LOC: HO.RHES 15:07
PROVIDERS: PCP Internal Medicine; Visit Provider Student in an Organized Health Care Education/Training Program
DX: M05.79 Rheumatoid arthritis with rheumatoid factor of multiple sites without organ or systems involvement (principal); M71.22 Synovial cyst of popliteal space [Baker], left knee; M80.00XD Age-related osteoporosis with current pathological fracture, unspecified site, subsequent encounter for fracture with routine healing; M79.7 Fibromyalgia; Z51.81 Encounter for therapeutic drug level monitoring; Z79.620 Long term (current) use of immunosuppressive biologic; Z79.631 Long term (current) use of antimetabolite agent
CPT/HCPCS: 20611; 99214

== ENCOUNTER → 2025-04-15 15:06 | Outpatient (BNVA) | payer MEDICARE, MEDICAID, SELFPAY | PROVIDERS: PCP Internal Medicine; Visit Provider Student in an Organized Health Care Education/Training Program | DX: M71.22 Synovial cyst of popliteal space [Baker], left knee (principal); M79.7 Fibromyalgia; M05.79 Rheumatoid arthritis with rheumatoid factor of multiple sites without organ or systems involvement; M81.0 Age-related osteoporosis without current pathological fracture; Z51.81 Encounter for therapeutic drug level monitoring; Z79.620 Long term (current) use of immunosuppressive biologic; Z79.631 Long term (current) use of antimetabolite agent | CPT/HCPCS: 20611; 99212; J3301 ==

== ENCOUNTER 2025-04-27 14:14 | Outpatient (AMB) | payer MEDICARE, MEDICAID, SELFPAY ==
--- NOTE | 2025-04-27 14:18 | A.OFFVIS_ITS ---
Intake Visit Reasons: Last seen 11/26/24 eCW Allergies Penicillins (PENICILLINS) Allergy (Intermediate, Verified 04/27/25 14:26) RASH/HIVES dexamethasone Allergy (Verified 04/27/25 14:26) Eye Swelling adalimumab (From Humira) Adverse Reaction (Intermediate, Verified 04/27/25 14:26) Chest Pain Medication List - Last Reconciled 04/27/25 by Norma Brunson, ANISHA acetaminophen ER 650 mg PO TID PRN albuterol sulfate mg inhalation albuterol sulfate 90 mcg/actuation 2 inhalations inhalation QID aspirin 81 mg PO DAILY azithromycin 500 mg PO QWEEK 28 days bisacodyl 10 mg (2 x 5 mg) PO BEDTIME quatbacmtp-kasjvris-idevbjijgw 160-9-4.8 mcg/actuation (Breztri Aerosphere) 2 inhalations inhalation BID buspirone 15 mg PO BID celecoxib 100 mg PO DAILY cetirizine 10 mg PO DAILY cholecalciferol (vitamin D3) 50 mcg PO DAILY dicyclomine 20 mg PO QID ezetimibe 10 mg PO DAILY folic acid 1 mg PO DAILY hydrocortisone 2.5% 1 appl GA BID isosorbide mononitrate ER 30 mg PO DAILY lidocaine 1.8% (ZTlido) 1 patch topical DAILY PRN linaclotide (Linzess) 290 mcg PO QAM 30 days sxiyuq-mxzvznqg-anfbjdn 24,000-76,000 -120,000 unit (Creon) 2 caps PO BID lorazepam 1 mg orally 1/2 tablet in the morning and 1 tablet at bedtime; lurasidone mg PO DAILY methotrexate sodium 20 mg (8 x 2.5 mg) PO QWEEK metoprolol succinate ER 100 mg PO DAILY mometasone 50 mcg/actuation intranasal DAILY montelukast 10 mg PO DAILY naloxone 4 mg/actuation 0 sprays intranasal nebulizer and compressor (Vios Aerosol Delivery System) As directed nicotine (polacrilex) (Nicorette) 4 mg buccal Q4H PRN nifedipine ER 120 mg (2 x 60 mg) PO DAILY nortriptyline 25 mg PO BEDTIME 90 days oxycodone mg PO oxycodone ER (OxyContin) 30 mg PO BID polyethylene glycol 3350 (Miralax) 17 grams PO DAILY 30 days prednisolone acetate 1% drps ophthalmic (eye) prednisolone sodium phosphate mg PO prednisone 5 mg PO DIRECTED pregabalin 300 mg PO BID rabeprazole 20 mg PO BID roflumilast 500 mcg PO DAILY romosozumab-aqqg (Evenity) 210 mg (2.34 mL) subcut .qmonthly rosuvastatin 10 mg PO DAILY simethicone (Gas-X Extra Strength) 125 mg PO TID PRN tamsulosin (Flomax) 0.4 mg PO BEDTIME tizanidine 6 mg PO BID PRN tocilizumab (Actemra ACTPen) 162 mg (0.9 mL) subcut QWEEK valacyclovir 1,000 mg PO DAILY valsartan-hydrochlorothiazide 320-25 mg 1 tab PO DAILY vibegron (Gemtesa) 75 mg PO DAILY zolpidem 10 mg PO BEDTIME PRN 30 days HPI Comments Details: Concerned about forgetfulness and difficulty concentrating. Had 2 episodes of right sided numbness that lasted about 5 minutes. The first was on 04/23/2025 and then again 04/26/2025. No associated symptoms. No headache at the time. No dizziness or vision changes. Had 2 falls in last 6 months, last was 2 weeks ago. Legs feel heavy at times, using cane. Had L chapin's cyst. Some stress, feels jumpy and agitated, working with psychiatrist. Ongoing FM pains, worse depending on weather. Muscle relaxer twice a day helps. Ongoing numbness and tingling in legs and arms. Gets some twitches in arms when holding things. Sleep was not so good. FM pains and OA pains worse with colder weather. Was having stabbing and burning pains along with numbness/tingling intermittently in arms an legs. Occasionally dropping things. High level of anxiety. Decreased strength and stiffness in hands, fingers lock in curled position. Has some tremors in right hand that come and go. Quit smoking with Chantix for 4 months but started smoking again on 05/14/23 when anxiety increased. Was having some increased mental fog. Had 2 lumbar vertebral compression 2022 from osteoporosis and had vertebroplasty 10/16/22 and had an embolus to the left lung. Seeing rejector and orthopedics. Seeing Dr. Pablo in [place]. Previously with insomnia, anxiety, panic attacks and cognitive issues after running out of Lorazepam and Zolpidem. Post herpetic pain has gone but still has loss of sensation. Whole body hurts, worse depending on weather, and Gabapentin does not help. Has some tremors in hands and feet. She has always been tremulous and has tremors on her mother's family. Still has left V1 numbness. 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 She had shingles 11/03/16 left V1 with corneal involvement, treated with prednisone. She has > 20-year history of whole body pain involving the neck, back, arms, hands joints with trouble writing dropping things, tingling and numbness. 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 She has been worked up with a normal lipid profile slightly elevated TSH, normal sedimentation rate of 3, normal vitamin levels and metabolic panel her RENETTA was +1:1280 with a speckled pattern. [facility] Medical History Chest pain Atypical chest pain Bronchitis Hx of nephrolithotomy with removal of calculi Swelling of finger joint of right hand Swelling of finger joint of left hand Hypocalcemia Coronary artery calcification seen on CAT scan Dyspnea Pulmonary nodules COPD (chronic obstructive pulmonary disease) Pulmonary emboli Urinary urgency Hx of hemorrhoids Seropositive rheumatoid arthritis Surgical History Hx of tubal ligation Hx of hand surgery Hx of parathyroidectomy Hx of kyphoplasty History of back surgery History of esophagogastroduodenoscopy (EGD) Hx of colonoscopy Family History Father Cancer Mother Colon cancer HTN (hypertension) Diabetes Breast cancer Brother Lupus HTN (hypertension) Kidney transplanted Sister HTN (hypertension) Cancer Liver transplanted Other FH: cancer FH: mental illness Social History Household Members: None Housing: House Alcohol intake: former Patient Tobacco Use Status: Current everyday Tobacco user Tobacco use type: Cigarette Cigarettes Per Day: 4 Years Smoked: 43 Review of Systems Const Denies chills, Denies daytime sleepiness, Reports difficulty sleeping, Reports fatigue, Denies fever(s), Denies frequent falls, Reports headache(s), Denies increased appetite, Denies poor appetite, Denies snoring, Denies weakness, Denies weight gain and Denies weight loss Eyes Denies loss of vision ENT Denies vertigo, Denies dizziness, Reports headache(s) and Reports neck pain Card Denies chest pain at rest, Denies chest pain with activity, Denies syncope, Denies leg edema, Denies palpitations, Denies dyspnea and Denies dyspnea on exertion Resp Denies cough, Denies dyspnea, Denies dyspnea on exertion and Denies snoring GI Denies abdominal pain, Denies constipation, Denies heartburn, Denies diarrhea and Denies nausea Denies urinary frequency, Denies urinary incontinence and Denies urinary urgency Musc Denies abnormal gait, Reports back pain, Reports myalgias, Reports arthralgias, Reports muscle weakness, Reports neck pain, Reports numbness and Reports tingling Neuro Denies abnormal gait, Denies vertigo, Denies dizziness, Denies syncope, Denies frequent falls, Reports headache(s), Denies lack of coordination, Denies loss of vision, Reports memory loss, Reports numbness, Denies Other visual disturbances, Denies restless legs, Denies seizure-like activity, Reports tingling, Denies paresthesias, Denies tremor(s) and Denies weakness Psych Reports anxiety, Reports depression, Denies auditory hallucinations, Reports memory loss and Denies visual hallucinations Endo Reports fatigue and Denies palpitations Physical Exam Const Other: General Appearance:? normal, in no acute distress. Heart:? S1, S2 normal, no murmurs. Lungs:? clear anteriorly and posteriorly. Musculoskeletal:? normal. Extremities:? no edema. Psych:? alert, as below. Neuro Other: Abnormal Neurological Findings:?Generalized whole body, skin, joint, and muscle tenderness and sensitivity. Generalized upper and lower extremity weakness (R > L), submaximal effort on motor testing. Walking with cane.?MMSE 26/30 Mental Status: alert, as below. Cranial Nerves: Pupils are equal, round, and reactive to light. External ocular muscles are intact. Visual tripp are full, no ptosis. Face is symmetrical, no facial weakness or droop. Facial sensations are normal. Tongue protrudes in midline. Palate elevates symmetrically. Shoulder shrugging is normal Motor Examination: As above. Sensory Exam: Normal light touch, temperature, pinprick, vibration, and joint- position sensations. Rhomberg sign is absent. Coordination: No ataxia. No titubation. Gait Exam: With cane. Cerebellar Signs: Dwsjvz-zh-skfz is okay. Extrapyramidal System: No tremor, rigidity with normal facial expressions. No bradykinesia. No bradyphrenia. Normal arm swing and posture. No propulsion or retropulsion. Speech: Normal. MMSE Level of Consciousness: Alert. Orientation: Knows correct year, month, day and season. Not date. Knows correct city, county and state. Knows correct location and floor. Registration: Able to register 3 objects. Attention: Serial 7's performed accurately to 79 (with some difficulty) Recall: Able to recall 2 out of 3 objects. Language: Normal spontaneous speech, fluency, repetition, naming, comprehension, reading, and writing. Total Score: 26/30. Results Reviewed Results Reviewed: Laboratory Tests 04/10/25 10:25 WBC 6.7 RBC 4.58 Hgb 13.8 Hct 40.3 MCV 88.0 MCH 30.1 MCHC 34.2 RDW 15.4 Plt Count 114 L MPV 12.6 H ESR 2 Sodium 135 Potassium 3.8 Chloride 100 Carbon Dioxide 29 Anion Gap 10 L BUN 6 L Creatinine 0.68 Estimated GFR > 60 Random Glucose 86 Calcium 9.1 Total Bilirubin 0.6 AST 25 ALT 16 Alkaline Phosphatase 62 C-Reactive Protein < 0.04 Total Protein 6.7 Albumin 4.7 25-OH Vitamin D Total 31.1 TSH 1.65 07/21/24 NCV/EMG ALL Mild Carpal tunnel syndrome on the left in the upper extremities. Normal motor and sensory nerve conduction velocities in the lower extremities. Normal EMG in the left C5-T1 and left L4-S1 innervated muscles. Assessment & Plan Assessment & Plan (1) Fibromyalgia: Code(s): M79.7 - Fibromyalgia Category: Medical Plan: Continue pregabalin 300mg 1 capsule twice a day. (2) Insomnia: Code(s): G47.00 - Insomnia, unspecified Category: Medical Qualifiers: Insomnia type: unspecified Qualified Code(s): G47.00 - Insomnia, unspecified Plan: Continue zolpidem 10mg 1 tablet at bedtime as needed for sleep. (3) Anxiety: Code(s): F41.9 - Anxiety disorder, unspecified Category: Medical Plan: Continue lorazepam 1mg 1/2 tablet in the morning and 1 tablet at bedtime #45 for 30 days. (4) Tension headache: Code(s): G44.209 - Tension-type headache, unspecified, not intractable Category: Medical Plan: Continue nortriptyline 25mg 1 capsule at bedtime. (5) Muscle spasm: Code(s): M62.838 - Other muscle spasm Category: Medical Plan: Continue tizanidine 6mg 1 capsule twice a day as needed for muscle spasms. (6) MCI (mild cognitive impairment): Code(s): G31.84 - Mild cognitive impairment of uncertain or unknown etiology Category: Medical Plan: Lab results from 03/2025 reviewed. Vitamin B12 and folate ordered. EEG and MRI brain ordered. She was on multiple medications that could contribute to cognitive symptoms (including pregabalin, zolpidem, lorazepam, tizanidine, oxycodone, oxycodone ER, etc) which she was educated on. Risks vs benefits of prescribed medications reviewed. Additional factors include psychiatric symptoms (anxiety, depression, etc.) and insomia - continue to work with psychiatrist, maintain regular sleep routine. Orders: Orders Vitamin B12 and Folate Today Norma Brunson CNP G31.84 - Mild cognitive impairment of uncertain or unknown etiology EEG Awake and Drowsy Today Norma Brunson CNP G31.84 - Mild cognitive impairment of uncertain or unknown etiology MR head/brain wo con Today Norma Brunson CNP G31.84 - Mild cognitive impairment of uncertain or unknown etiology Medications: Changed From tizanidine 6 mg PO BEDTIME PRN 30 caps 5RF muscle spasticity To tizanidine 6 mg PO BID PRN Andreea Medina NP Coding Level of Care Code Est Pt Level 4 (72601) Diagnoses Fibromyalgia M79.7 Insomnia, unspecified type G47.00 Insomnia type: unspecified Anxiety F41.9 Tension headache G44.209 Muscle spasm M62.838 MCI (mild cognitive impairment) G31.84
--- OUTSIDE RECORDS SUMMARY | 2025-04-27 17:29 | XMS_ITS | Clinical Summary ---
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
== END 2025-04-27 15:17 | disposition home or self-care (01) ==
LOC: HO.HSM 14:15
PROVIDERS: PCP Internal Medicine; Visit Provider Registered Nurse
DX: M79.7 Fibromyalgia (principal); G47.00 Insomnia, unspecified; F41.9 Anxiety disorder, unspecified; G44.209 Tension-type headache, unspecified, not intractable; M62.838 Other muscle spasm; G31.84 Mild cognitive impairment of uncertain or unknown etiology
CPT/HCPCS: 99214

== ENCOUNTER → 2025-04-27 14:14 | Outpatient (BNVA) | payer MEDICARE, MEDICAID, SELFPAY | PROVIDERS: PCP Internal Medicine; Visit Provider Registered Nurse | DX: M79.7 Fibromyalgia (principal); G47.00 Insomnia, unspecified; F41.9 Anxiety disorder, unspecified; G44.209 Tension-type headache, unspecified, not intractable; M62.838 Other muscle spasm; G31.84 Mild cognitive impairment of uncertain or unknown etiology | CPT/HCPCS: 99212 ==

== ENCOUNTER 2025-05-04 12:37 | Outpatient (AMB) | payer MEDICARE, MEDICAID, SELFPAY ==
--- NOTE | 2025-05-04 12:51 | A.OFFVIS_ITS ---
Vital Signs 05/04/25 13:00 Height 5 ft 3 in Weight 112 lb 3.445 oz BMI 19.9 BP 142/90 H Blood Pressure Location Lt brachial Position Sitting Pulse 80 Pulse Source Pulse Oximeter Pulse Oximetry (%) 98 Oxygen Delivery Method Room Air Intake Visit Reasons: follow up RA Intake Note: Patient presents for RA follow up. Patient is requesting Diclofenac gel. Patient also stated her vision on both eyes have been changing drastically. Allergies Penicillins (PENICILLINS) Allergy (Intermediate, Verified 05/04/25 12:59) RASH/HIVES dexamethasone Allergy (Verified 05/04/25 12:59) Eye Swelling adalimumab (From Humira) Adverse Reaction (Intermediate, Verified 05/04/25 12:59) Chest Pain Medication List - Last Reconciled 05/04/25 by Ruby Keen MD acetaminophen ER 650 mg PO TID PRN albuterol sulfate mg inhalation albuterol sulfate 90 mcg/actuation 2 inhalations inhalation QID aspirin 81 mg PO DAILY azithromycin 500 mg PO QWEEK 28 days bisacodyl 10 mg (2 x 5 mg) PO BEDTIME onmqgeldzw-keimsauw-nzsbntlteu 160-9-4.8 mcg/actuation (Breztri Aerosphere) 2 inhalations inhalation BID buspirone 15 mg PO BID celecoxib 100 mg PO DAILY cetirizine 10 mg PO DAILY cholecalciferol (vitamin D3) 50 mcg PO DAILY dicyclomine 20 mg PO QID ezetimibe 10 mg PO DAILY folic acid 1 mg PO DAILY hydrocortisone 2.5% 1 appl FL BID isosorbide mononitrate ER 30 mg PO DAILY lidocaine 1.8% (ZTlido) 1 patch topical DAILY PRN linaclotide (Linzess) 290 mcg PO QAM 30 days thpjkb-xjisdarx-fptcfli (pork) 24,000-76,000 -120,000 unit (Creon) 2 caps PO BID lorazepam 1 mg orally 1/2 tablet in the morning and 1 tablet at bedtime; lurasidone mg PO DAILY methotrexate sodium 20 mg (8 x 2.5 mg) PO QWEEK metoprolol succinate ER 100 mg PO DAILY mometasone 50 mcg/actuation intranasal DAILY montelukast 10 mg PO DAILY naloxone 4 mg/actuation 0 sprays intranasal nebulizer and compressor (Vitals [email or web address]) Aerosol Delivery System) As directed nicotine (polacrilex) (Nicorette) 4 mg buccal Q4H PRN nifedipine ER 120 mg (2 x 60 mg) PO DAILY nortriptyline 25 mg PO BEDTIME 90 days oxycodone mg PO oxycodone ER (OxyContin) 30 mg PO BID polyethylene glycol 3350 (Miralax) 17 grams PO DAILY 30 days prednisolone acetate 1% drps ophthalmic (eye) prednisolone sodium phosphate mg PO prednisone 5 mg PO DIRECTED pregabalin 300 mg PO BID 30 days rabeprazole 20 mg PO BID roflumilast 500 mcg PO DAILY rosuvastatin 10 mg PO DAILY simethicone (Gas-X Extra Strength) 125 mg PO TID PRN tamsulosin (Flomax) 0.4 mg PO BEDTIME tizanidine 6 mg PO BID PRN tocilizumab (Actemra ACTPen) 162 mg (0.9 mL) subcut QWEEK valacyclovir 1,000 mg PO DAILY valsartan-hydrochlorothiazide 320-25 mg 1 tab PO DAILY vibegron (Gemtesa) 75 mg PO DAILY zolpidem 10 mg PO BEDTIME PRN 30 days HPI Comments Details: Patient is a 60-year-old female with COPD, hypertension complicated by coronary artery disease, hyperlipidemia, hyperparathyroidism, GERD, osteoporosis, fibromyalgia and seropositive rheumatoid arthritis/likely overlap syndrome here today for follow up Interval History: Patient last seen 04/15/25 with me - On methotrexate 20mg weekly, folic acid 1mg daily, and actemra 162mg every 2 weeks - Urgent visit for left posterior knee swelling and pain - US guided barnhart's cyst aspiration and steroid injection performed, this was the second time - Also in a flare of her disease - given prednisone course and actemra frequency increased Patient did well but noted recurrent swelling of the cyst Sent to ortho for eval for cyst removal and told ortho does not perform that procedure Today - On methotrexate 20mg weekly, folic acid 1mg daily, and actemra 162mg every week - On prednisone taper - Found after day 3 on 20mg of the prednisone her hand sx improved however after the taper she noticed recurrence of sx - Posterior left knee swelling recurring Rheumatologic History: Seropositive rheumatoid arthritis +RF+CCP dx 2018 Methotrexate: prior to 2017- October 2021 effective per patient Leflunomide: October 2022 DC 12/2023 not effective Hum2023 DC 12/2023 ineffective MTX restarted 12/2023 Overlap syndrome Few dilated loops on nailfold capillaroscopy. History suggestive of Raynaud's. Mild interstitial changes on CT chest. Mild esophageal dysmotility on barium swallow. Comprehensive serologies showed positive RENETTA, mildly positive anti Scl 70 antibody as well as positive PL 7 antibody. On exam there is no skin thickening, no muscle weakness on exam. Current Rheumatology Medication(s): Methotrexate 20 mg weekly Folic acid 1 mg daily Evenity (prescribed by Dr. Queen endocrinology) Actemra 162 mg every week SC PFSH Medical History Chest pain Atypical chest pain Bronchitis Hx of nephrolithotomy with removal of calculi Swelling of finger joint of right hand Swelling of finger joint of left hand Hypocalcemia Coronary artery calcification seen on CAT scan Dyspnea Pulmonary nodules COPD (chronic obstructive pulmonary disease) Pulmonary emboli Urinary urgency Hx of hemorrhoids Seropositive rheumatoid arthritis Surgical History Hx of tubal ligation Hx of hand surgery Hx of parathyroidectomy Hx of kyphoplasty History of back surgery History of esophagogastroduodenoscopy (EGD) Hx of colonoscopy Family History Father Cancer Mother Colon cancer HTN (hypertension) Diabetes Breast cancer Brother Lupus HTN (hypertension) Kidney transplanted Sister HTN (hypertension) Cancer Liver transplanted Other FH: cancer FH: mental illness Social History Household Members: None Housing: House Alcohol intake: former Patient Tobacco Use Status: Current everyday Tobacco user Tobacco use type: Cigarette Cigarettes Per Day: 4 Years Smoked: 43 Review of Systems Const Details: Review of Systems Constitutional: Denies fever, chills, weight loss ENT: Denies vision changes, eye pain or eye redness, dental caries, dry mouth GI: Denies nausea, vomiting, diarrhea, abdominal pain, change in BM Pulm: Denies SOB, BYRD, hemoptysis, wheezing Cards: Denies chest pain, palpitations Skin: Denies Raynaud's, rash, nail changes, photosensitivity, RIM BUSTER: Denies headaches, weakness, paresthesias, recurrent falls MSK: as per HPI All other systems reviewed and are unremarkable except noted above Physical Exam Exam Exam: Vital signs reviewed Physical Examination CONSTITUITIONAL Patient alert and cooperative. Well appearing and in no apparent painful distress MSK Hands * Right Hand: Able to make a fist. No swelling, improved hands. Only TTP of the 2nd and 3rd * Left Hand: Able to make a fist. No swelling, improved hands. Only TTP of the 2nd and 3rd * Herbedens nodes noted bilaterally Wrists * Right Wrist: Full ROM to flexion and extension. No swelling but TTP * Left Wrist: Full ROM to flexion and extension. No swelling or TTP Elbows * Right Elbow: No swelling or TTP. No TTP of the medial epicondyle. No TTP of the lateral epicondyle * Left Elbow: No swelling or TTP. No TTP of the medial epicondyle. No TTP of the lateral epicondyle Shoulders * Right shoulder: Decreased ROM. No swelling noted. No TTP of the AC joint. No TTP of the subacromial bursa. No TTP of the posterior shoulder * Left shoulder: Decreased ROM. No swelling noted. No TTP of the AC joint. No TTP of the subacromial bursa. No TTP of the posterior shoulder Knees * Right knee: No swelling noted. No TTP of the knee joint line. No TTP of pes anserine bursa * Left knee: Decreased ROM. Swelling noted to popliteal fossa No TTP of the knee joint line. No TTP of pes anserine bursa. Ankles * Right ankle: Good ankle dorsiflexion and plantar flexion. No swelling. No TTP of the ankle joint * Left ankle: Good ankle dorsiflexion and plantar flexion. No swelling. No TTP of the ankle joint Feet * Right foot: Negative squeeze test * Left foot: Negative squeeze test Tender points? * No tenderness to palpation of the bilateral trapezius, supraspinatus, anterior costochondral junctions, bilateral suboccipital muscle insertions SKIN No rashes Vital Signs: Last Vital Signs Pulse 80 05/04/25 13:00 BP 142/90 H 05/04/25 13:00 Pulse Ox 98 05/04/25 13:00 Oxygen Delivery Method Room Air 05/04/25 13:00 BMI result Body Mass Index 19.9 Results Reviewed Results Reviewed: Laboratory Tests 04/10/25 10:25 WBC 6.7 RBC 4.58 Hgb 13.8 Hct 40.3 Plt Count 114 L ESR 2 Sodium 135 Potassium 3.8 Chloride 100 Carbon Dioxide 29 BUN 6 L Creatinine 0.68 AST 25 ALT 16 C-Reactive Protein < 0.04 25-OH Vitamin D Total 31.1 Immunology labs 02/26/24 10/10/24 16:45 10:11 ION-1 Antibody <11 EJ Antibody <11 OJ Antibody <11 Mi-2-Alpha Ab <11 Mi-2-Beta Ab 14 H NXP-2 Ab <11 PL-[address]-12 Antibody <11 SRP Ab <11 MDA5 Ab <11 Myos P155/140 TIF1-g Ab <11 SS-A/Ro Antibody <1.0 NEG SS-B/La Antibody <1.0 NEG Sm (Kwon) Antibody <1.0 NEG U1 snRNA A Antibody <11 U1 snRNA C Antibody <11 U1 snRNA 70kD Antibody <11 SM/PRIMARY TEACHING ASSISTANT IgG Antibody <1.0 NEG Scl-70 Scleroderma Ab 21 H A-PM Scleroderma 75 Ab <11 A-PM Scleroderma 100 Ab <11 Double Strand DNA Ab 1 Anti-ds DNA (Crithidia) Negative Th/To PRIMARY TEACHING ASSISTANT Ab <11 U3-PRIMARY TEACHING ASSISTANT (Fibrillarin) Ab <11 RNA Polymerase III RP11 Ab <11 RNA Polymerase III RP155 Ab <11 Centromere B Antibody <11 Centromere Protein A Ab <11 HMGCR IgG Antibody <2 NT5C1A IgG Antibody <5 Beta-2-GPI IgG Ab <2.0 Beta-2-GPI IgA Ab <2.0 Beta-2-GPI IgM Ab <2.0 Anti-Cardiolipin IgG Ab <2.0 Anti-Cardiolipin IgM Ab <2.0 Complement C3 57 L 117 Complement C4 12 L 20 Infectious serologies 10/10/24 10/16/24 10:11 12:24 Hepatitis A IgM Ab Nonreactive Hep Bs Antigen Negative Hep Bs Antibody NONREACTIVE Hep B Core Total Ab Nonreactive Hepatitis C Ab (EIA) Nonreactive TB Test (T-Spot) Com Negative Body Fluids 03/12/25 14:54 Synovial WBC 0.420 Synovial RBC < 0.002 Synovial Lymphocytes 6 Synovial Monocytes 2 Synovial Other Cells 92 Assessment & Plan Assessment & Plan (1) Seropositive rheumatoid arthritis: Comment: +RF+CCP dx 2017 Methotrexate: prior to 2017- October 2021 effective per patient Leflunomide: October 2022 DC 12/2023 not effective Humira 2023 DC 12/2023 ineffective MTX restarted 12/2023 Code(s): M05.9 - Rheumatoid arthritis with rheumatoid factor, unspecified Category: Medical Plan: #Seropositive RA/Overlap syndrome Patient is a 60-year-old female with seropositive rheumatoid arthritis and likely connective tissue disease overlap syndrome based on positive RENETTA, positive PL 7 and mi 2 beta, Scl 70 and history of low complements which have now resolved. She also has a history of Raynaud's, ulcers and early ILD changes on CT done about a year ago. Flare resolving but still having difficulty tapering the prednisone Plan - Actemra 162mg SC every week - Stop PO Mtx and start SC Mtx 25mg SC weekly - Folic acid 1mg daily, consider increasing if patient continues to complain of ulcers - Complete prednisone course - RTC 4 months - Labs before visit: CBC, CMP, ESR, CRP, lipid panel, C3, C4 (2) Synovial cyst of left popliteal space: Code(s): M71.22 - Synovial cyst of popliteal space [Barnhart], left knee Plan: #Left knee Backer's cyst Patient with seropositive rheumatoid arthritis here today for an urgent visit for left posterior knee swelling found to have a Barnhart's cyst on ultrasound. Status post ultrasound-guided aspiration and injection of steroids x 2. T Recurrence only after a few weeks Plan - Refer to ortho for eval (3) Osteoporosis: Comment: History of hyper parathyroidism and fragility fractures Code(s): M81.0 - Age-related osteoporosis without current pathological fracture Category: Medical Qualifiers: Osteoporosis type: age-related Presence of current pathological fracture: with current pathological fracture Encounter type: subsequent encounter Fracture healing: with routine healing Qualified Code(s): M80.00XD - Age-related osteoporosis with current pathological fracture, unspecified site, subsequent encounter for fracture with routine healing Plan: #Osteoporosis Patient with osteoporosis and a history of fragility fractures currently on Evenity as per endocrinology. (4) Fibromyalgia: Code(s): M79.7 - Fibromyalgia Category: Medical Plan: #Fibromyalgia Patient's presentation is complicated by fibromyalgia. Recommended stretches which I showed her on my phone on you to. Advised her to do 2 days a week of stretching for the next several months. (5) Encounter for monitoring tocilizumab therapy: Code(s): Z51.81 - Encounter for therapeutic drug level monitoring; Z79.620 - long-term (current) use of immunosuppressive biologic Plan: #Long-term Use of Tocilizumab Discussed the risks and benefits of tocilizumab with the management of this patient's rheumatic condition. ? Benefits include decreased pain, improved mortality, improved quality of life Risks include LFT abnormalities, elevated triglycerides, GI perforations Contraindicated in a patient with history of diverticulitis Monitoring: ?CBC, CMP, triglycerides (6) Encounter for methotrexate monitoring: Code(s): Z51.81 - Encounter for therapeutic drug level monitoring; Z79.631 - long-term (current) use of antimetabolite agent Plan: #Long-term Current Use of Methotrexate Discussed with patient the benefits and risks of methotrexate for managing their rheumatic condition Benefits include reduced pain, reduced mortality, maintenance of remission and reduction of flares Risks include oral ulcers, photosensitivity, hepatotoxicity, hematologic toxicity, pneumonitis, flu-like symptoms (especially day after administration), nodulosis, lymphomas ? Limit alcohol and avoid Bactrim ? Monitoring: ?CBC, BMP, LFTs every 3-4 months and hepatitis serologies as needed Plan I spent 30 minutes reviewing the record and labs, taking a history, examining the patient, discussing the treatment plan, ordering diagnostic work up and documenting in the medical record Orders: Referrals Orthopedics Referral M17.0 - Bilateral primary osteoarthritis of knee Medications: New methotrexate (PF) (Rasuvo (PF)) 25 mg (0.5 mL) subcut QWEEK 2 mL 5RF M05.9 - Rheumatoid arthritis with rheumatoid factor, unspecified methotrexate (PF) (Rasuvo (PF)) 25 mg (0.5 mL) subcut QWEEK 2 mL 5RF M05.9 - Rheumatoid arthritis with rheumatoid factor, unspecified Discontinued methotrexate sodium Discontinued Reason: Doctor's Order 20 mg (8 x 2.5 mg) PO QWEEK 104 tabs 1RF M05.9 - Rheumatoid arthritis with rheumatoid factor, unspecified Coding Level of Care Code Est Pt Level 4 (31771) Complex EM visit Add On G2211 Diagnoses Seropositive rheumatoid arthritis M05.9 Synovial cyst of left popliteal space M71.22 Age-related osteoporosis with current pathological fracture with routine healing, subsequent encounter M80.00XD Osteoporosis type: age-related Presence of current pathological fracture: with current pathological fracture Encounter type: subsequent encounter Fracture healing: with routine healing Fibromyalgia M79.7 Encounter for monitoring tocilizumab therapy Z51.81; Z79.620 Encounter for methotrexate monitoring Z51.81; Z79.631
[2025-05-04 13:00] VITALS: BP 142/90; PULSE 80; O2SAT 98; BMI 19.9
--- OUTSIDE RECORDS SUMMARY | 2025-05-04 15:14 | XMS_ITS | Clinical Summary ---
Author Organization [facility] Address [address] [place] [address] Phone Care Team Providers Care Fire Captain Name Role Phone Jackie Watt MD Primary [...] complete this topic Insurance Medicaid [place] Aetna [facility] Adv PPO ([id number]) Medicaid [place] Aetna [facility] Adv PPO ([id number]) Care Teams Fire Captain Relationship Specialty Start Date End Date Jackie Watt MD [address] [facility] [address] [place], [place] PCP - General 08/01/20
== END 2025-05-04 13:45 | disposition home or self-care (01) ==
LOC: HO.RHES 12:38
PROVIDERS: PCP Internal Medicine; Visit Provider Student in an Organized Health Care Education/Training Program
DX: M05.9 Rheumatoid arthritis with rheumatoid factor, unspecified (principal); M71.22 Synovial cyst of popliteal space [Baker], left knee; M80.00XD Age-related osteoporosis with current pathological fracture, unspecified site, subsequent encounter for fracture with routine healing; M79.7 Fibromyalgia; Z51.81 Encounter for therapeutic drug level monitoring; Z79.620 Long term (current) use of immunosuppressive biologic; Z79.631 Long term (current) use of antimetabolite agent
CPT/HCPCS: 99214; G2211

== ENCOUNTER → 2025-05-04 12:37 | Outpatient (BNVA) | payer MEDICARE, MEDICAID, SELFPAY | PROVIDERS: PCP Internal Medicine; Visit Provider Student in an Organized Health Care Education/Training Program | DX: M05.79 Rheumatoid arthritis with rheumatoid factor of multiple sites without organ or systems involvement (principal); M71.22 Synovial cyst of popliteal space [Baker], left knee; M81.0 Age-related osteoporosis without current pathological fracture; M79.7 Fibromyalgia; Z79.620 Long term (current) use of immunosuppressive biologic; Z79.631 Long term (current) use of antimetabolite agent | CPT/HCPCS: 99212 ==

== ENCOUNTER 2025-05-13 13:54 | Outpatient (REF) | payer MEDICARE, MEDICAID, SELFPAY ==
[2025-05-13 15:09] LABS: Albumin Level 4.3 g/dL (3.5-5.0); Anion Gap 9 (12-20); Blood Urea Nitrogen 16 mg/dL (9-16); Calcium 8.1 mg/dL (8.4-10.2); Carbon Dioxide 30 mmol/L (22-29); Chloride 108 mmol/L (96-108); Estimated Glomerular Filt Rate > 60; Potassium 4.1 mmol/L (3.3-5.1); Sodium 143 mmol/L (135-145)
--- OUTSIDE RECORDS SUMMARY | 2025-05-13 17:47 | XMS_ITS | Clinical Summary ---
Author Organization [facility] Address [address] [place] [address] Phone Care Team Providers Care Box Nailer Name Role Phone Jackie Watt MD Primary [...] complete this topic Insurance Medicaid [place] Aetna [facility] Adv PPO ([id number]) Medicaid [place] Aetna [facility] Adv PPO ([id number]) Care Teams Box Nailer Relationship Specialty Start Date End Date Jackie Watt MD [address] [facility] [address] [place], [place] PCP - General 08/01/20
== END 2025-05-13 13:55 | disposition home or self-care (01) ==
LOC: HO.LAB 13:54
PROVIDERS: Absent Provider Registered Nurse; PCP Internal Medicine; Referring Provider Internal Medicine Endocrinology, Diabetes & Metabolism; Visit Provider Internal Medicine Nephrology
DX: M80.00XD Age-related osteoporosis with current pathological fracture, unspecified site, subsequent encounter for fracture with routine healing (principal)
CPT/HCPCS: 36415; 80048; 82040

== ENCOUNTER 2025-05-25 14:50 | Outpatient (AMB) | payer MEDICARE, MEDICAID, SELFPAY ==
[2025-05-25 14:55] VITALS: BP 130/68; PULSE 88; BMI 19.5
--- NOTE | 2025-05-25 14:55 | MHC.OFFVIS ---
Vital Signs 05/25/25 14:55 Height 5 ft 3 in Weight 110 lb 3.698 oz BMI 19.5 BP 130/68 Blood Pressure Location Lt brachial Position Sitting Pulse 88 Intake Visit Reasons: 6m follow up Intake Note: 6 month follow-up with ekg hearts ok Allergies Penicillins (PENICILLINS) Allergy (Intermediate, Verified 05/04/25 12:59) RASH/HIVES dexamethasone Allergy (Verified 05/04/25 12:59) Eye Swelling adalimumab (From Humira) Adverse Reaction (Intermediate, Verified 05/04/25 12:59) Chest Pain Medication List - Last Reconciled 05/25/25 by Pito Sahni MD acetaminophen ER 650 mg PO TID PRN albuterol sulfate mg inhalation albuterol sulfate 90 mcg/actuation 2 inhalations inhalation QID aspirin 81 mg PO DAILY azithromycin 500 mg PO QWEEK 28 days bisacodyl 10 mg (2 x 5 mg) PO BEDTIME bfkupalpey-rlpzryqp-tjduehfviw 160-9-4.8 mcg/actuation (Breztri Aerosphere) 2 inhalations inhalation BID buspirone 15 mg PO BID calcium citrate 500 mg (2 x 250 mg calcium) PO BID celecoxib 100 mg PO DAILY cetirizine 10 mg PO DAILY cholecalciferol (vitamin D3) 50 mcg PO DAILY dicyclomine 20 mg PO QID ezetimibe 10 mg PO DAILY folic acid 1 mg PO DAILY hydrocortisone 2.5% 1 appl SC BID isosorbide mononitrate ER 30 mg PO DAILY lidocaine 1.8% (ZTlido) 1 patch topical DAILY PRN linaclotide (Linzess) 290 mcg PO QAM 30 days huzsjn-vizhiqoz-uqfurqo (pork) 24,000-76,000 -120,000 unit (Creon) 2 caps PO BID lorazepam 1 mg orally 1/2 tablet in the morning and 1 tablet at bedtime; lurasidone mg PO DAILY methotrexate (PF) (Rasuvo (PF)) 25 mg (0.5 mL) subcut QWEEK metoprolol succinate ER 100 mg PO DAILY mometasone 50 mcg/actuation intranasal DAILY montelukast 10 mg PO DAILY naloxone 4 mg/actuation 0 sprays intranasal nebulizer and compressor (Vios Aerosol Delivery System) As directed nifedipine ER 120 mg (2 x 60 mg) PO DAILY nortriptyline 25 mg PO BEDTIME 90 days oxycodone mg PO oxycodone ER (OxyContin) 30 mg PO BID polyethylene glycol 3350 (Miralax) 17 grams PO DAILY 30 days prednisolone acetate 1% drps ophthalmic (eye) prednisolone sodium phosphate mg PO prednisone 5 mg PO DIRECTED pregabalin 300 mg PO BID 30 days rabeprazole 20 mg PO BID roflumilast 500 mcg PO DAILY rosuvastatin 10 mg PO DAILY simethicone (Gas-X Extra Strength) 125 mg PO TID PRN tamsulosin (Flomax) 0.4 mg PO BEDTIME tizanidine 6 mg PO BID PRN tocilizumab (Actemra ACTPen) 162 mg (0.9 mL) subcut QWEEK valacyclovir 1,000 mg PO DAILY valsartan-hydrochlorothiazide 320-25 mg 1 tab PO DAILY vibegron (Gemtesa) 75 mg PO DAILY zolpidem 10 mg PO BEDTIME PRN 30 days HPI Comments Details: Brisa comes for follow-up. Overall she has been doing well from cardiac perspective. She has had no cardiac complaints. She is mostly flare-up of her rheumatologic issues at this point time. She unfortunately continues smoke. She takes all her medications. He has no exertional chest pain or shortness of breath. No prolonged palpitation irregular heartbeat. No lightheadedness, syncope. [facility] Medical History Chest pain Atypical chest pain Bronchitis Hx of nephrolithotomy with removal of calculi Swelling of finger joint of right hand Swelling of finger joint of left hand Hypocalcemia Coronary artery calcification seen on CAT scan Dyspnea Pulmonary nodules COPD (chronic obstructive pulmonary disease) Pulmonary emboli Urinary urgency Hx of hemorrhoids Seropositive rheumatoid arthritis Surgical History Hx of tubal ligation Hx of hand surgery Hx of parathyroidectomy Hx of kyphoplasty History of back surgery History of esophagogastroduodenoscopy (EGD) Hx of colonoscopy Family History Father Cancer Mother Colon cancer HTN (hypertension) Diabetes Breast cancer Brother Lupus HTN (hypertension) Kidney transplanted Sister HTN (hypertension) Cancer Liver transplanted Other FH: cancer FH: mental illness Social History Household Members: None Housing: House Alcohol intake: former Patient Tobacco Use Status: Current everyday Tobacco user Tobacco use type: Cigarette Cigarettes Per Day: 4 Years Smoked: 43 Review of Systems Const Denies chills, Denies fatigue, Denies fever(s), Denies frequent falls, Denies weakness, Denies weight gain and Denies weight loss ENT Denies dizziness Card Denies chest pain, Denies leg edema, Denies lightheadedness, Denies palpitations, Denies dyspnea, Denies dyspnea on exertion, Denies orthopnea and Denies other (loss of consciousness) Resp Denies cough, Denies dyspnea and Denies dyspnea on exertion GI Denies hematochezia and Denies change in stool character Musc Denies abnormal gait, Denies muscle weakness, Denies numbness, Denies radiating pain into limb and Denies tingling Neuro Denies abnormal gait, Denies dizziness, Denies frequent falls, Denies numbness, Denies tingling and Denies weakness Endo Denies fatigue and Denies palpitations Physical Exam Vital Signs: Last Vital Signs Pulse 88 05/25/25 14:55 BP 130/68 05/25/25 14:55 BMI result Body Mass Index 19.5 Const General: cooperative, comfortable and no acute distress Nutritional Appearance: underweight and other (Frail elderly woman) Orientation/consciousness: patient oriented x3 Limitations: ambulation with cane Neck Neck: Yes normal visual inspection Resp Effort & Inspection: normal respiratory effort Auscultation: clear to auscultation bilaterally, no rales, no rhonchi and no wheezes Cardio Rate: regular rate Rhythm: regular rhythm Heart sounds: S1 normal heart sound present, S2 normal heart sound present, no gallops, no murmurs and no rubs Neuro General: patient oriented x3 Extrem Other: swelling of finger joints noted General: Yes normal to inspection, No no pedal edema and No calf tenderness Psych Appearance: grossly normal Mental Status: mental status grossly normal Speech and movement: Normal speech and movement present Office Procedures EKG Details: EKGs shows normal sinus rhythm with normal EKGs [id number], Complete Assessment & Plan Assessment & Plan (1) CAD (coronary artery disease): Comment: CTA of the coronary arteries, 08/19/2024, RCA minimal stenosis less than 25%, other vessels normal. Code(s): I25.10 - Atherosclerotic heart disease of [place] coronary artery without angina pectoris Category: Medical Plan: Nonobstructive CAD with mild disease. She has no new symptoms. At this point time strongly recommend smoking cessation. Continue aspirin therapy. Continue high-intensity statin therapy with target goal LDL actually under 70 mg/dL. Recommend to further optimize her therapy and consider adding ezetimibe to her regimen. Importance of aggressive atherosclerotic risk factor modification was discussed. She remains at risk for acute coronary syndrome given her continued smoking. She is encouraged to maintain activity level as tolerated. (2) Hypertension: Code(s): I10 - Essential (primary) hypertension Category: Medical Qualifiers: Hypertension type: primary hypertension Qualified Code(s): I10 - Essential (primary) hypertension Plan: Hypertension which is currently well optimized on current therapy. Importance of good blood pressure control was discussed. Advised to continue current therapy. Importance of stress mitigation strategies was discussed. Low-salt diet was discussed. Will follow up in the clinic in 2 years time, sooner PRN. Thank you for allowing me to partake in her care Coding Level of Care Code Est Pt Level 4 (66060) Complex EM visit Add On G2211 Diagnoses CAD (coronary artery disease) I25.10 Primary hypertension I10 Hypertension type: primary hypertension CPT Codes EKG - CPT: 24426-[id number], Complete ([id number])
== END 2025-05-25 15:43 | disposition home or self-care (01) ==
LOC: HO.HCS 14:51
PROVIDERS: PCP Internal Medicine; Visit Provider Internal Medicine Cardiovascular Disease
DX: I25.10 Atherosclerotic heart disease of native coronary artery without angina pectoris (principal); I10 Essential (primary) hypertension
CPT/HCPCS: 93010; 99214; G2211

== ENCOUNTER → 2025-05-25 14:50 | Outpatient (BNVA) | payer MEDICARE, MEDICAID, SELFPAY | PROVIDERS: PCP Internal Medicine; Visit Provider Internal Medicine Cardiovascular Disease | DX: I25.10 Atherosclerotic heart disease of native coronary artery without angina pectoris (principal); I10 Essential (primary) hypertension | CPT/HCPCS: 93005; 99212 ==

== ENCOUNTER 2025-05-27 12:55 | Outpatient (REF) | payer MEDICARE, MEDICAID, SELFPAY ==
--- NOTE | ~2025-05-27 | MR_ITS ---
CLINICAL HISTORY: G31.84 - Mild cognitive impairment of uncertain or unknown etiology MR BRAIN WITHOUT GADOLINIUM Comparison: CT/REG/SR - CT HEAD WITHOUT IV CONTRAST - 09/01/22 15:55 EST Findings: No restricted diffusion. No intra-axial mass or hemorrhage. Incidental partial empty sella. Several scattered T2 FLAIR foci of signal alteration in the subcortical white matter. No midline shift. No hydrocephalus. Vascular flow voids are intact. The orbits are normal. Nonspecific left maxillary sinus disease. Signal alteration in the left mastoid air cells suggesting nonspecific partial opacification. No focal bone lesion. IMPRESSION: 1. No acute infarct or hemorrhage. 2. Very small burden of periventricular and subcortical white matter signal alteration. This is a nonspecific finding that can be seen in the setting of age advanced microangiopathy, remote trauma, prior infectious/inflammatory process (such as demyelination) or can be seen with increased frequency in patients with a history of migraine headaches. 3. Nonspecific left maxillary sinus disease and partial left mastoid opacification. This document has been electronically signed by: Deepthi Pickard DO on 05/27/2025 14:53:32
--- OUTSIDE RECORDS SUMMARY | 2025-05-27 15:53 | XMS_ITS | Clinical Summary ---
Author Organization [facility] Address [address] [place] [address] Phone Care Team Providers Care Panel Beater Name Role Phone Jackie Watt MD Primary [...] [employer] [facility] Adv PPO ([id number]) Medicaid [place] Aet[employer] MCR Adv PPO ([id number]) Care Teams Panel Beater Relationship Specialty Start Date End Date Jackie Watt MD [address] [facility] [address] [place], [place] PCP - General 08/01/20
== END 2025-05-27 12:56 | disposition home or self-care (01) ==
LOC: HO.MRI 12:55
PROVIDERS: PCP Internal Medicine; Visit Provider Registered Nurse
DX: G31.84 Mild cognitive impairment of uncertain or unknown etiology (principal)
CPT/HCPCS: 70551

== ENCOUNTER → 2025-05-27 12:55 | Outpatient (BNV) | payer MEDICARE, MEDICAID, SELFPAY | PROVIDERS: PCP Internal Medicine; Visit Provider Radiology Diagnostic Radiology | DX: G31.84 Mild cognitive impairment of uncertain or unknown etiology (principal) | CPT/HCPCS: 70551 ==

== ENCOUNTER 2025-06-01 10:33 | Outpatient (REF) | payer MEDICARE, MEDICAID, SELFPAY ==
--- NOTE | 2025-06-01 12:29 | EEG_ITS ---
Reason for Exam: G31.84 Mild cognitive impairment History: Concerned about forgetfulness and difficulty concentrating. Had 2 episodes of right sided numbness that lasted about 5 minutes. The first was on 04/23/2025 and then again 04/26/2025. No associated symptoms. No headache at the time. No dizziness or vision changes. Had 2 falls in last 6 months, last was 2 weeks ago. Legs feel heavy at times, using cane. Medications: acetaminophen, albuterol sulfate, aspirin, azithromycin, bisacodyl, nnnwgvmvdy-fwivtgrm-jtezbgaozv, buspirone, celecoxib, cetirizine, cholecalciferol (vitamin D3), dicyclomine, ezetimibe, folic acid, hydrocortisone, isosorbide mononitrate, lidocaine, linaclotide, espuba-aiwaevzy-iuteejb, lorazepam, lurasidone, methotrexate sodium, metoprolol succinate, mometasone, montelukast, naloxone, nifedipine, nortriptyline, oxycodone, polyethylene glycol, prednisolone acetate, prednisone, pregabalin, rabeprazole, roflumilast, romosozumab-aqqg (Evenity), rosuvastatin, simethicone, tamsulosin, tizanidine, tocilizumab, valacyclovir, valsartan-hydrochlorothiazide, vibegron ,zolpidem Technical Description Photic Stimulation: completed Hyperventilation: performed - good effort Behavioral State: pleasant State of Consciousness: awake and drowsy Skull Defect: none Sedation: none Handedness: right Duration: 34 min 56 sec Description: This is a 16 channel EEG with an EKG lead. Patient is reported awake during the tracing. Background EEG rhythm is low amplitude mixed theta beta with no obvious asymmetry or paroxysmal tendency. Photic stimulation does not produce any significant driving. Hyperventilation is is unremarkable. No sharp waves, spikes, asymmetric activity, or paroxysmal activity noted. Cardiac lead does not reveal any significant abnormality. Impression: Unremarkable EEG. [facility]
== END 2025-06-01 10:34 | disposition home or self-care (01) ==
LOC: HO.NEURO 10:33
PROVIDERS: PCP Internal Medicine; Visit Provider Registered Nurse
DX: G31.84 Mild cognitive impairment of uncertain or unknown etiology (principal)
CPT/HCPCS: 95816

== ENCOUNTER → 2025-06-01 12:29 | Outpatient (BNV) | payer MEDICARE, MEDICAID, SELFPAY | PROVIDERS: PCP Internal Medicine; Visit Provider Psychiatry & Neurology Neurology | DX: G31.84 Mild cognitive impairment of uncertain or unknown etiology (principal) | CPT/HCPCS: 95816 ==

== ENCOUNTER 2025-06-08 14:11 | Outpatient (AMB) | payer MEDICARE, MEDICAID, SELFPAY ==
--- NOTE | 2025-06-08 14:15 | MHC.OFFVIS ---
Vital Signs 06/08/25 14:16 Height 5 ft 3 in Weight 114 lb 10.246 oz BMI 20.3 BP 158/74 H Blood Pressure Location Lt brachial Position Sitting Pulse 76 Pulse Source Pulse Oximeter Pulse Oximetry (%) 99 Oxygen Delivery Method Room Air Intake Visit Reasons: COPD Stitchdown Thread Laster Required: Yes Stitchdown Thread Laster Services: Stitchdown Thread Laster Offered & Declined Stitchdown Thread Laster Name: MD speaks danish Accompanied by: Self / Same As Patient Allergies Penicillins (PENICILLINS) Allergy (Intermediate, Verified 06/08/25 14:22) RASH/HIVES dexamethasone Allergy (Verified 06/08/25 14:22) Eye Swelling adalimumab (From Humira) Adverse Reaction (Intermediate, Verified 06/08/25 14:22) Chest Pain HPI Comments Details: The patient is a 60 year woman with known history of tobacco dependency who apparently underwent a kyphoplasty for compression fractures back in September 2022. After the procedure the patient developed significant shortness of breath and chest discomfort. She did undergo a CTA at [facility] which I personally reviewed demonstrating a left pulmonary cement emboli. The patient was treated initially was her outcome for about a month. Then she was taking off. She has noticed increasing shortness of breath with minimal activity moderate severity. Also developing chest discomfort. She continues to smoke cigarettes. We did talk about the importance of her quitting. We did talk about the findings on the CT scan also demonstrating pulmonary nodules that need close follow-up. And a brief walking oximetry the patient maintain a pulse ox of 98% which is reassuring and the heart rate was stable. Will plan to get blood works including a D-dimer at this time. If the D-dimer is elevated will go ahead and request a CTA to rule out thromboembolic disease. We know that that cement can be thrombogenic and can increase the risk of clotting. 01/24/2023 the patient is here for pulmonary follow-up visit. Overall the patient has been doing well. She is working on quitting smoking altogether. She is using the patch. The patient still having some dyspnea on exertion mild in severity. Overall doing better. She did have blood work during the last visit and she did have an elevated D-dimer therefore she underwent a CTA. She still had the area of residual cement within the pulmonary vasculature on the left hemithorax but otherwise no evidence of any thromboembolic disease. The patient's ground-glass opacities have subsided the patient also has pulmonary nodules some of them have improved as well. She will need some degree follow-up for the pulmonary nodule specially with high risk with her smoking history. She also has significant coronary artery disease that is described as moderately severe calcifications of the coronary arteries. Patient does have dyspnea on exertion and has complained of some chest pressure at times. Therefore I will have her undergo an EKG and also a stress test. Patient may benefit from Cardiology consultation if any abnormalities noted. 07/18/2023 the patient is here for a pulmonary follow-up visit. Overall the patient has been doing fairly well from a respiratory status. She does complaint of back pain. Been bothering her significant amount. She is going to be evaluated for sciatica soon. In the meantime we did review her CT scan of the chest that she had back in November 2022 demonstrating the persistence amount of her vessels secondary to her kyphoplasty. In addition to that underlying pulmonary nodules. She is a high-risk patient because of her smoking history. The patient will need to have a repeat CT scan in a year from her last 1 was be November 2023. she will continue with current respiratory therapy. Will follow-up in December after her CT scan. 01/21/2024 the patient is here for a pulmonary follow-up visit. Overall the patient has been doing okay. She has been developing worsening chest congestion. Also some chest tightness. In addition to that her arthritis has been more active. She had been on biologic therapy for her rheumatoid arthritis and then switched over to methotrexate. She has been on methotrexate now just for several weeks. Still not controlling her arthritis. We did talk about methotrexate be in an excellent medication for rheumatoid arthritis. Although the patient is aware that in some cases it can result in worsening adverse pulmonary symptoms. She did have a CT scan in November which is personally reviewed. I do not believe she was on the methotrexate done. She had a slight area of ground-glass opacity. She also has evidence of chronic bronchitis. We are going to go ahead and treat her for bronchitis with doxycycline. She is going to try to provide us with a sputum culture. In the meantime the patient also has some wheezing and will place her on low dose prednisone taper to see if we can provide some relief. Will monitor closely her symptoms. If the patient continues to have worsening cough, will consider additional imaging at that point. To make sure that she has not developing any adverse effects from the medication. She continues with respiratory therapy. Will follow-up until 3 months. If she does not worsening symptoms prior to this she will call for an earlier assessment. 04/28/2024 the patient is here for a pulmonary follow-up visit. The patient continues to struggle with her breathing. She has still having significant chest congestion shortness breath and chest tightness. She does not feel like the Breo has been helping. She did see her primary care doctor recently and she was placed on another course of antibiotics and prednisone. She felt better and then she stopped the prednisone. Once she stopped the prednisone her arthritis became very active. Therefore she started small dose again. She has also been cutting down the smoking. She is only smoking about 2 cigarettes a day. She needs to quit altogether. She is wanting to try the Nicorette gum. The patient is also following closely with Rheumatology. He again looked at her CT scan of the chest demonstrating some evidence of bronchitis. The patient also has pulmonary nodules. She will need to have follow-up. But at this point she does not need any additional imaging at this time. Will go ahead and treat her effectively with maximizing her respiratory therapy, started her on azithromycin 3 times a week. The patient may also be a good candidate for Daliresp to minimize her prednisone use in to improve her chronic bronchitis symptoms. She needs to be careful because she does not have too much weight to lose. If she notices significant weight loss then will have to either decrease it or stop it. The patient also monitor for any GI symptoms. 07/09/2024 the patient is here for pulmonary follow-up visit. Overall the patient has been doing fair. She has significant arthritic bodies and significant swelling of her small joints due to her rheumatoid arthritis. She has been on the methotrexate 20 mg weekly and also has been under folic acid. Seems like it does help but not enough. She also has osteoporosis making it difficult to place her on prednisone. But at this time she looks extremely uncomfortable and I will send her some prednisone for her to taper down. The patient also has been having worsening respiratory symptoms. She finds that the azithromycin has been helpful although it does not help her throughout. Therefore will try to increase the dose of the 500 mg dose to see if this does more effective. If it does not work she can always call and we can think about another option. The patient continues with respiratory therapy and she does use it regularly. She also continues on the Daliresp. Which will continue for now as well. Therefore, the patient will try the additional medicines and will follow-up in a couple months and see there is any progress. She has any worsening issues she will call for an earlier assessment. 09/15/2024 the patient is here for a pulmonary follow-up visit. Overall she is doing better from a respiratory status. The addition of the azithromycin has been affecting beneficial. She did have an EKG which was normal. She also had a CTA demonstrating a single-vessel disease with 25% obstruction of the RCA. She will follow-up with cardiology. In the meantime the patient did have a CT scan of the chest back in 12/09/2023 which I personally reviewed demonstrating a 6 mm pulmonary nodule. She will need to have a repeat CT scan sometime in November of 2024. The patient continues to smoke so therefore she is high risk for cancer. In the meantime the patient continues to struggle with her arthritis. She is going to follow-up with a new customer orders clerk soon. The patient also has been struggling with her smoking. She has been finding of the Nicorette gum helpful. Although she needs more. Will go ahead and place her on a small patch of 7 mg and also she can do the Nicorette gum as needed. She will continue with the current respiratory regimen. She seems to be tolerating the medicines well. Will follow up sometime in December after her CT scan to address her 6 mm pulmonary nodule. 01/05/2025 the patient is here for a pulmonary follow-up visit. The patient overall has been doing okay from a respiratory status. Recently she did have a respiratory illness and she did get antibiotics prednisone she is back to his baseline. She did follow-up with Rheumatology and her medications were adjusted. She is optimistic that she is going to feel better from a rheumatological standpoint. We did review her recent CT scan of the chest demonstrating stable pulmonary nodules this was done in November 2024. No evidence of any interstitial lung disease what is reassuring. Overall the patient is doing well she continues her respiratory therapy. Will plan to follow-up in 4-6 months. If she has any issues prior to this she will call for an earlier assessment. 06/08/2025 the patient is here for pulmonary follow-up visit. Overall she feels like she is doing worse from a respiratory status. She states that she is developing significant shortness of breath and chest tightness. She has been having to use her nebulizer more often. She states that she was doing okay but then she was switched over to IV formulation of methotrexate. She feels that after that initiation she started having some difficulties. She was also placed on Actemra. She has been noticing some headaches in addition to elevated blood pressures which is likely from that medication. We did go for brief walking oximetry and she actually did okay with maintaining a pulse ox of 95%. Will have her get a chest x-ray. The patient is aware that methotrexate can indeed cause pulmonary complications. Therefore we have to be vigilant. At this point I will give her some prednisone for the wheezing and for the chest tightness. I do believe that possibly considering switching her off methotrexate because of the concerns of underlying pulmonary adverse effects. Send a message to a customer orders clerk to see if this is something reasonable. In the meantime the patient will have a chest x-ray. Her last CT scan was back in November 2024 which demonstrated pulmonary nodules and she did have some areas of pneumonitis. If her x-ray is abnormal we can always get the CAT scan sooner to see if indeed there is any manifestations of any drug induced pulmonary process. [facility] Medical History Chest pain Atypical chest pain Bronchitis Hx of nephrolithotomy with removal of calculi Swelling of finger joint of right hand Swelling of finger joint of left hand Hypocalcemia Coronary artery calcification seen on CAT scan Dyspnea Pulmonary nodules COPD (chronic obstructive pulmonary disease) Pulmonary emboli Urinary urgency Hx of hemorrhoids Seropositive rheumatoid arthritis Surgical History Hx of tubal ligation Hx of hand surgery Hx of parathyroidectomy Hx of kyphoplasty History of back surgery History of esophagogastroduodenoscopy (EGD) Hx of colonoscopy Family History Father Cancer Mother Colon cancer HTN (hypertension) Diabetes Breast cancer Brother Lupus HTN (hypertension) Kidney transplanted Sister HTN (hypertension) Cancer Liver transplanted Other FH: cancer FH: mental illness Social History Household Members: None Housing: House Alcohol intake: former Patient Tobacco Use Status: Current everyday Tobacco user Tobacco use type: Cigarette Cigarettes Per Day: 4 Years Smoked: 43 Review of Systems Const Denies fatigue, Denies fever(s), Denies night sweats, Denies poor appetite and Denies weight loss Eyes Details: glasses Reports requires corrective lenses ENT Denies dysphagia Card Denies chest pain, Reports dyspnea and Reports dyspnea on exertion Resp Reports cough, Reports dyspnea, Reports dyspnea on exertion and Reports wheezing GI Denies dysphagia Musc Reports abnormal gait, Reports back pain, Reports myalgias, Reports arthralgias, Reports joint swelling and Reports limited range of motion Skin/Breast Denies pruritus, Denies lesions, Denies rash and Denies jaundice Neuro Denies Abnormal speech present and Reports abnormal gait Psych Reports mood swings Endo Denies fatigue Mason/Lymph Denies as per HPI, Denies easy bleeding and Denies easy bruising Aller/Immun Reports wheezing Physical Exam Vital Signs: Last Vital Signs Pulse 76 06/08/25 14:16 BP 158/74 H 06/08/25 14:16 Pulse Ox 99 06/08/25 14:16 Oxygen Delivery Method Room Air 06/08/25 14:16 BMI result Body Mass Index 20.3 Const General: cooperative, no acute distress, alert and awake Nutritional Appearance: well nourished Orientation/consciousness: patient oriented x3 Limitations: no limitations HEENT Head: Yes normal to inspection and Yes atraumatic Neck Neck: Yes normal visual inspection, Yes full ROM and Yes no lymphadenopathy Chest Chest palpation & inspection: normal inspection of the chest Resp Effort & Inspection: normal respiratory effort and No prolonged expiratory phase Auscultation: no rhonchi, no wheezes and diminished lung sounds Cardio Rate: regular rate Rhythm: regular rhythm GI Palpation (GI): Soft to palpation General: Yes no CVA tenderness Back/Spine/Pelvis Back: no CVA tenderness Neuro General: patient oriented x3 and moves all extremities Speech: No Abnormal speech present Extrem Right upper extremity: Extremity exam: right hand Details: tenderness and swelling Left upper extremity: hand Details: tenderness and swelling Assessment & Plan Assessment & Plan (1) COPD (chronic obstructive pulmonary disease): Code(s): J44.9 - Chronic obstructive pulmonary disease, unspecified Category: Medical Qualifiers: COPD type: COPD with acute lower respiratory infection Qualified Code(s): J44.0 - Chronic obstructive pulmonary disease with (acute) lower respiratory infection (2) Pulmonary nodules: Code(s): R91.8 - Other nonspecific abnormal finding of lung field Category: Medical (3) Coronary artery calcification seen on CAT scan: Code(s): I25.10 - Atherosclerotic heart disease of [place] coronary artery without angina pectoris Category: Medical (4) Pulmonary emboli: Code(s): I26.99 - Other pulmonary embolism without acute cor pulmonale Category: Medical Qualifiers: Acute cor pulmonale presence: unspecified Chronicity: chronic Pulmonary embolism type: unspecified Qualified Code(s): I27.82 - Chronic pulmonary embolism (5) Seropositive rheumatoid arthritis: Comment: +RF+CCP dx 2017 Methotrexate: prior to 2017- October 2021 effective per patient Leflunomide: October 2022 DC 12/2023 not effective Humira 2023 DC 12/2023 ineffective MTX restarted 12/2023 Code(s): M05.9 - Rheumatoid arthritis with rheumatoid factor, unspecified Category: Medical (6) ILD (interstitial lung disease): Code(s): J84.9 - Interstitial pulmonary disease, unspecified Category: Medical Plan Lesliedmitrijessieelbert stopped Azithromycin 500mg MWF, EKG normal continue Daliresp BISI as needed Smoking cessation nasonex nasal spray CXR with changes, will reuest CT chest F/U 4 months Orders: Orders XR chest 2V Today J44.0 - Chronic obstructive pulmonary disease with (acute) lower respiratory infection CT chest wo IV con Today J84.9 - Interstitial pulmonary disease, unspecified, R91.8 - Other nonspecific abnormal finding of lung field Medications: New prednisone PO daily; Take 2 tabs daily x 7 days, then, 1 tab daily x 7 days 21 tabs 1RF 14 days Coding Level of Care Code Est Pt Level 4 (19588) Complex EM visit Add On G2211 Diagnoses Chronic obstructive pulmonary disease with acute lower respiratory infection J44.0 COPD type: COPD with acute lower respiratory infection Pulmonary nodules R91.8 Coronary artery calcification seen on CAT scan I25.10 Chronic pulmonary embolism, unspecified pulmonary embolism type, unspecified whether acute cor pulmonale present I27.82 Acute cor pulmonale presence: unspecified Chronicity: chronic Pulmonary embolism type: unspecified Seropositive rheumatoid arthritis M05.9 ILD (interstitial lung disease) J84.9 Time Spent (min) 18
[2025-06-08 14:16] VITALS: BP 158/74; PULSE 76; O2SAT 99; BMI 20.3
== END 2025-06-08 15:28 | disposition home or self-care (01) ==
LOC: HO.HPS 14:12
PROVIDERS: PCP Internal Medicine; Visit Provider Hospitalist
DX: J44.0 Chronic obstructive pulmonary disease with (acute) lower respiratory infection (principal); R91.8 Other nonspecific abnormal finding of lung field; I25.10 Atherosclerotic heart disease of native coronary artery without angina pectoris; I27.82 Chronic pulmonary embolism; M05.9 Rheumatoid arthritis with rheumatoid factor, unspecified; J84.9 Interstitial pulmonary disease, unspecified
CPT/HCPCS: 99214; G2211

== ENCOUNTER 2025-06-08 14:11 | Outpatient (REF) | payer MEDICARE, MEDICAID, SELFPAY ==
--- NOTE | ~2025-06-08 | XR_ITS ---
EXAMINATION: XR CHEST CLINICAL INFORMATION: J44.0 - Chronic obstructive pulmonary disease with (acute) lower respira... COMPARISON: May 10, 2018. Correlated to CT chest dated December 10, 2024. TECHNIQUE: PA and lateral views. FINDINGS: Hyperinflated lungs. Pulmonary reticular pattern. No consolidation, pleural effusion or pneumothorax. Cardiomediastinal silhouette size is normal. Round cardiac apex. S-shaped curvature of the thoracolumbar spine. Multilevel spondylosis. Radiopaque material within the vertebral bodies of L2 and L3. XR/XR chest 2V IMPRESSION: Chronic interstitial lung disease. Scoliosis and spondylosis, thoracolumbar spine. Status post kyphoplasty/vertebroplasty procedure, L2 and L3. Electronically signed by: Darrel Dos Santos MD 06/08/2025 03:15 PM HUDSON ALTAMIRANO
--- OUTSIDE RECORDS SUMMARY | 2025-06-09 12:39 | XMS_ITS | Clinical Summary ---
Author Organization [facility] Address [address] [place] [address] Phone Care Team Providers Care Soundscriber Mechanic Name Role Phone Jackie Watt MD Primary [...] complete this topic Insurance Medicaid [place] Aetna [facility] Adv PPO ([id number]) Medicaid [place] Aet[employer] [facility] Adv PPO ([id number]) Care Teams Soundscriber Mechanic Relationship Specialty Start Date End Date Jackie Watt MD [address] [facility] [address] [place], [place] PCP - General 08/01/20
== END 2025-06-08 14:12 | disposition home or self-care (01) ==
LOC: HO.XRAY 14:11
PROVIDERS: PCP Internal Medicine; Visit Provider Hospitalist
DX: J44.0 Chronic obstructive pulmonary disease with (acute) lower respiratory infection (principal); R91.8 Other nonspecific abnormal finding of lung field; I25.10 Atherosclerotic heart disease of native coronary artery without angina pectoris; I27.82 Chronic pulmonary embolism; M05.9 Rheumatoid arthritis with rheumatoid factor, unspecified; J84.9 Interstitial pulmonary disease, unspecified; K21.9 Gastro-esophageal reflux disease without esophagitis; F17.210 Nicotine dependence, cigarettes, uncomplicated; Z79.899 Other long term (current) drug therapy; Z79.631 Long term (current) use of antimetabolite agent
CPT/HCPCS: 71046; 99212

== ENCOUNTER → 2025-06-08 14:52 | Outpatient (BNV) | payer MEDICARE, MEDICAID, SELFPAY | PROVIDERS: PCP Internal Medicine; Visit Provider Radiology Diagnostic Radiology | DX: J84.9 Interstitial pulmonary disease, unspecified (principal); M47.815 Spondylosis without myelopathy or radiculopathy, thoracolumbar region; M41.35 Thoracogenic scoliosis, thoracolumbar region | CPT/HCPCS: 71046 ==

== ENCOUNTER 2025-06-22 12:05 | Outpatient (AMB) | payer MEDICARE, MEDICAID, SELFPAY ==
--- NOTE | 2025-06-22 12:11 | A.OFFVIS_ITS ---
Vital Signs 06/22/25 12:13 06/22/25 12:18 Height 5 ft 3 in Weight 112 lb 6.972 oz BMI 19.9 BP 207/114 H Blood Pressure Location Lt brachial Lt brachial Position Sitting Sitting Intake Visit Reasons: GERD< CIC Intake Note: Brisa presents in the office as a follow up. CC: She states that she is still having reflux and severe constipation. She gets the burning in the chest and throat. 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 Allergies Penicillins (PENICILLINS) Allergy (Intermediate, Verified 06/22/25 12:14) RASH/HIVES dexamethasone Allergy (Verified 06/22/25 12:14) Eye Swelling adalimumab (From Humira) Adverse Reaction (Intermediate, Verified 06/22/25 12:14) Chest Pain HPI HPI GERD< CIC: Details: Assessment & Plan (1) GERD (gastroesophageal reflux disease): Code(s): K21.9 - Gastro-esophageal reflux disease without esophagitis Category: Medical (2) Chronic idiopathic constipation: Code(s): K59.04 - Chronic idiopathic constipation Category: Medical (3) Proctalgia fugax: Code(s): K59.4 - Anal spasm Category: Medical Plan She is on bid Aciphex, famotidine, Linzess 290mcg, dicyclomine, simethicone and Proctosol cream. She is doing well on the Linzess 290mcg over the 145mcg and has not needed the bisacodyl. She has occasional CP that si s tightness that is relieved with standing and stretching. She sees cardiology regularly, it may be breakthrough GERD. I advise her to try TUMS to see if this is breakthrough GERD vs musculoskeletal. RROV 6 mos. Medications: New polyethylene glycol 3350 (Miralax) 17 grams PO DAILY 510 grams 6RF 30 days K59.04 - Chronic idiopathic constipation Refilled kkwfuw-epxsulwo-iafpujb 24,000-76,000 -120,000 unit (Creon) 2 caps PO BID 120 caps 6RF K58.9 - Irritable bowel syndrome, unspecified dicyclomine 20 mg PO QID 120 tabs 6RF simethicone (Gas-X Extra Strength) 125 mg PO TID PRN 90 tabs 6RF abdominal distention rabeprazole 20 mg PO BID 60 tabs 6RF dicyclomine 20 mg PO QID 120 tabs 0RF linaclotide (Linzess) 290 mcg PO QAM 30 caps 6RF 30 days K59.04 - Chronic idiopathic constipation Discontinued polyethylene glycol 3350 Discontinued Reason: Doctor's Order 17 grams PO DAILY 28 ea 0RF TODAY'S VISIT [facility] Medical History ILD (interstitial lung disease) Chest pain Atypical chest pain Bronchitis Hx of nephrolithotomy with removal of calculi Swelling of finger joint of right hand Swelling of finger joint of left hand Hypocalcemia Coronary artery calcification seen on CAT scan Dyspnea Pulmonary nodules COPD (chronic obstructive pulmonary disease) Pulmonary emboli Urinary urgency Hx of hemorrhoids Seropositive rheumatoid arthritis Surgical History Hx of tubal ligation Hx of hand surgery Hx of parathyroidectomy Hx of kyphoplasty History of back surgery History of esophagogastroduodenoscopy (EGD) Hx of colonoscopy Family History Father Cancer Mother Colon cancer HTN (hypertension) Diabetes Breast cancer Brother Lupus HTN (hypertension) Kidney transplanted Sister HTN (hypertension) Cancer Liver transplanted Other FH: cancer FH: mental illness Social History Household Members: None Housing: House Alcohol intake: former Patient Tobacco Use Status: Current everyday Tobacco user Tobacco use type: Cigarette Cigarettes Per Day: 4 Years Smoked: 43 Review of Systems Const Denies fatigue, Denies fever(s), Reports malaise, Denies night sweats, Denies poor appetite and Reports weight loss Eyes Details: glasses Reports requires corrective lenses ENT Reports Normal hearing present, Denies dental pain, Denies dysphagia, Denies hearing loss, Denies mouth pain, Denies odynophagia, Denies throat swelling, Denies tongue swelling and Reports other (Dentition adequate) Card Reports no additional complaints and Reports dyspnea Resp Reports dyspnea and Reports wheezing GI Details: Reports abdominal pain, Denies melena, Denies bloating, Denies hematochezia, Reports constipation, Denies GI cramping, Denies dysphagia, Denies excessive flatus, Reports early satiety, Reports heartburn, Denies diarrhea, Reports nausea, Denies odynophagia, Denies vomiting and Denies hematemesis Musc Reports myalgias, Reports arthralgias, Reports joint swelling, Reports limited range of motion and Reports stiffness Skin/Breast Denies pruritus, Denies lesions, Denies rash and Denies jaundice Neuro Reports Normal hearing present and Denies Abnormal speech present Endo Denies fatigue Aller/Immun Denies throat swelling, Denies tongue swelling and Reports wheezing Physical Exam Vital Signs: Last Vital Signs BP 207/114 H 06/22/25 12:13 BMI result Body Mass Index 19.9 Const General: cooperative, no acute distress, well developed and well groomed Nutritional Appearance: well nourished Orientation/consciousness: oriented to person, oriented to place and oriented to time Limitations: language barrier HEENT Head: Yes normocephalic and Yes atraumatic Eyes General: appearance normal, both eyes and all related structures Pupils: Equal, round and reactive pupils present Neck Neck: Yes normal visual inspection and Yes no lymphadenopathy Thyroid: Thyroid normal Resp Effort & Inspection: normal respiratory effort and able to speak in complete sentences Auscultation: clear to auscultation bilaterally Cardio Rate: regular rate Rhythm: regular rhythm Heart sounds: Normal, physiologic split S2 sound present Peripheral pulses: radial pulses present and posterior tibial pulses present GI Inspection: No distended and No Abdominal panniculus present Palpation (GI): Soft to palpation, Tenderness to palpation present (GI) in the epigastrum, no guarding, not rigid and No hepatosplenomegaly present Percussion: Yes normal to percussion Auscultation: normal bowel sounds Rectal Exam - Female: deferred Skin General skin exam: no rashes or lesions noted, turgor normal, skin not dry, no jaundice, No spider nevi and no striae Rashes: no rashes Nails: normal Neuro General: oriented to person, oriented to place and oriented to time Cranial nerves: Yes Equal, round and reactive pupils present and Yes Normal hearing present Speech: No Abnormal speech present Extrem General: No no joint enlargement, No clubbing, No cyanosis and No edema Right upper extremity: Extremity exam: right hand Details: tenderness Location: of the thumb, of the 2nd digit, of the 3rd digit, of the 4th digit and of the 5th digit, warmth and swelling Psych Appearance: grossly normal and well kempt Mental Status: mental status grossly normal Speech and movement: Normal speech and movement present Affect: normal affect Attitude: cooperative Thought process: Normal thought process present and not confabulating Thought content: Normal thought content present Insight: Good insight present (Psych) Judgement: Good judgement present (Psych) Assessment & Plan Assessment & Plan (1) GERD (gastroesophageal reflux disease): Code(s): K21.9 - Gastro-esophageal reflux disease without esophagitis Category: Medical (2) Chronic idiopathic constipation: Code(s): K59.04 - Chronic idiopathic constipation Category: Medical (3) Functional dyspepsia: Code(s): K30 - Functional dyspepsia Category: Medical (4) Nausea: Code(s): R11.0 - Nausea Category: Medical Plan She is on bid Aciphex, famotidine, Linzess 290mcg, dicyclomine, simethicone and Proctosol cream. She is doing well on the Linzess 290mcg over the 145mcg and has not needed the bisacodyl. Subjective Patient reports ongoing gastrointestinal symptoms since starting weekly tocilizu mab (Actemra) injections and switching methotrexate to weekly injectable form per rheumatology approximately two months ago. Symptoms include constant epigastric pain with burning chest/throat consistent with worsening reflux, marked nausea, frequent foul?smelling burping, early satiety, bloating/fullness even without eating, worsening constipation, and involuntary passage of gas without awareness. She notes increased shortness of breath for the first several days after injections requiring more frequent albuterol nebulizer use, which in turn raises her blood pressure. She feels overall GI symptoms have been significantly worse since instituting the injections. She reports weight loss. Rheumatoid arthritis control is poor; she describes ongoing joint pain and swelling. Prednisone was started by Dr. Meraz about two weeks ago for worsening dyspnea, which she feels also elevates blood pressure and worsens constipation. She continues Creon, dicyclomine, simethicone, rabeprazole twice d aily, Linzess 290 mcg daily, and uses bisacodyl as needed. She denies diabetes. Rheumatoid arthritis noted in history; uses albuterol for reactive airway symptoms. Not diabetic. Objective - Small joints of the hands appear swollen and erythematous today. Assessment & Plan Functional dyspepsia and nausea, suspected medication?related delayed gastric emptying: Clinical picture of epigastric pain/burning, early satiety, bloating, nausea, constipation, and weight loss temporally associated with initiation of weekly tocilizumab and injectable methotrexate. - Start metoclopramide 20 mg/day divided four times daily (take at breakfast, lunch, supper, and bedtime, regardless of meals). - Reviewed potential adverse effects including akathisia/motor restlessness, tremor, extrapyramidal symptoms; if these occur, stop the medication and contact me. - Reviewed rare risk of serotonin syndrome when combined with antidepressants; advised to report symptoms such as sudden confusion, feverish feeling, flushing, and marked dryness. - Continue current GI regimen: rabeprazole twice daily, Creon, dicyclomine, simethicone, Linzess 290 mcg daily, and bisacodyl as needed. - Defer gastric emptying study for now; may pursue if results would change management coordinator. Will reassess pending rheumatology?s plan regarding continuation of the biologic and methotrexate. Gastroesophageal reflux disease, worsened: Exacerbation characterized by severe heartburn and retrosternal/throat burning with foul?smelling belching. - Continue high?dose rabeprazole twice daily. - Initiate prokinetic therapy as above to address suspected delayed gastric emptying contributing to symptoms. Constipation and gas/flatulence incontinence: Likely multifactorial, including medication effects and impaired GI motility. - Continue Linzess 290 mcg daily; continue bisacodyl as needed. - Trial metoclopramide as above to improve upper GI motility, which may secondarily assist bowel function. Rheumatoid arthritis with inadequate control; on new weekly tocilizumab and injectable methotrexate; prednisone recently initiated: - Continue close follow?up with rheumatology to assess efficacy versus adverse effects of current regimen and determine whether to continue or modify therapy. - No changes made by me today to RA regimen. Shortness of breath temporally related to injections; increased albuterol use with transient blood pressure elevation: - Monitor symptoms; will coordinate with rheumatology as medication adjustments are considered. Medications: New metoclopramide HCl (Reglan) 5 mg PO QIDACHS 120 tabs 3RF K30 - Functional dyspepsia, R11.0 - Nausea Refilled dicyclomine 20 mg PO QID 120 tabs 6RF bisacodyl 10 mg (2 x 5 mg) PO BEDTIME 60 tabs 1RF K59.04 - Chronic idiopathic constipation linaclotide (Linzess) 290 mcg PO QAM 30 caps 6RF 30 days K59.04 - Chronic idiopathic constipation iiizky-kaehzdli-erusbtw (pork) 24,000-76,000 -120,000 unit (Creon) 2 caps PO BID 100 caps 3RF K58.9 - Irritable bowel syndrome, unspecified rabeprazole 20 mg PO BID 60 tabs 6RF simethicone (Gas-X Extra Strength) 125 mg PO TID PRN 90 tabs 6RF abdominal distention Coding Level of Care Code Est Pt Level 3 (56296) Diagnoses GERD (gastroesophageal reflux disease) K21.9 Chronic idiopathic constipation K59.04 Functional dyspepsia K30 Nausea R11.0
[2025-06-22 12:13] VITALS: BP 207/114; BMI 19.9
== END 2025-06-22 13:16 | disposition home or self-care (01) ==
LOC: HO.HGI 12:06
PROVIDERS: PCP Internal Medicine; Visit Provider Nurse Practitioner
DX: K21.9 Gastro-esophageal reflux disease without esophagitis (principal); K59.04 Chronic idiopathic constipation; K30 Functional dyspepsia; R11.0 Nausea
CPT/HCPCS: 99213

== ENCOUNTER 2025-06-22 12:05 | Outpatient (REF) | payer MEDICARE, MEDICAID, SELFPAY ==
[2025-06-22 14:33] LABS: Albumin Level 4.8 g/dL (3.5-5.0); Anion Gap 13 (12-20); Blood Urea Nitrogen 12 mg/dL (9-16); Calcium 9.4 mg/dL (8.4-10.2); Carbon Dioxide 29 mmol/L (22-29); Chloride 107 mmol/L (96-108); Estimated Glomerular Filt Rate > 60; Potassium 4.0 mmol/L (3.3-5.1); Sodium 145 mmol/L (135-145)
[2025-06-22 14:34] LABS: Calcium 9.4 mg/dL (8.4-10.2)
[2025-06-22 15:12] LABS: Folate 11.5 ng/mL (> or = 4.0); Vitamin B12 614 pg/mL (200-900)
== END 2025-06-22 12:06 | disposition home or self-care (01) ==
LOC: HO.LAB 12:05
PROVIDERS: Absent Provider Registered Nurse; PCP Internal Medicine; Referring Provider Student in an Organized Health Care Education/Training Program; Visit Provider Internal Medicine Endocrinology, Diabetes & Metabolism
DX: K21.9 Gastro-esophageal reflux disease without esophagitis (principal); E21.3 Hyperparathyroidism, unspecified; G31.84 Mild cognitive impairment of uncertain or unknown etiology; K59.04 Chronic idiopathic constipation; K30 Functional dyspepsia; M80.00XD Age-related osteoporosis with current pathological fracture, unspecified site, subsequent encounter for fracture with routine healing; Z79.899 Other long term (current) drug therapy
CPT/HCPCS: 36415; 80048; 82040; 82306; 82310; 82607; 82746; 99212

== ENCOUNTER 2025-06-24 12:59 | Outpatient (REF) | payer MEDICARE, MEDICAID, SELFPAY ==
--- NOTE | ~2025-06-24 | US_ITS ---
EXAMINATION: US RETROPERITONEAL LIMITED (RENAL ONLY) CLINICAL INFORMATION: N20.0. Calculus of kidney.. COMPARISON: April 22, 2024. TECHNIQUE: Real-time ultrasound of the kidneys using grayscale technique. FINDINGS: RIGHT KIDNEY: 10 x 3 x 5 cm (SAG x AP x TRV). Volume: 94 cc. Normal echotexture. Renal cortical thickness is normal. No hydronephrosis. Multiple, less than 3 mm hyperechoic structures. No gross solid or cystic lesion. LEFT KIDNEY: 10 x 4 x 5 cm (SAG x AP x TRV). Volume: 108 cc. Normal echotexture. Renal cortical thickness is normal. No hydronephrosis. Few scattered less than 3 mm hyperechoic structures. No gross solid or cystic lesion. US/US renal BI IMPRESSION: Bilateral nephrolithiasis. No hydronephrosis.. Electronically signed by: Darrel Dos Santos MD 06/24/2025 01:44 PM EST
== END 2025-06-24 13:00 | disposition home or self-care (01) ==
LOC: HO.US 12:59
PROVIDERS: PCP Internal Medicine; Visit Provider Urology
DX: N20.0 Calculus of kidney (principal)
CPT/HCPCS: 76775

== ENCOUNTER → 2025-06-24 13:01 | Outpatient (BNV) | payer MEDICARE, MEDICAID, SELFPAY | PROVIDERS: PCP Internal Medicine; Visit Provider Radiology Diagnostic Radiology | DX: N20.0 Calculus of kidney (principal) | CPT/HCPCS: 76775 ==

== ENCOUNTER 2025-06-29 14:36 | Outpatient (RCR) | payer MEDICARE, MEDICAID, SELFPAY ==
[2025-06-29 14:37] VITALS: BP 205/112; PULSE 76; RESP 16; TEMP 36.7; O2SAT 99
== END 2025-06-29 15:13 | disposition home or self-care (01) ==
LOC: HO.INF 14:36
PROVIDERS: Visit Provider Internal Medicine Endocrinology, Diabetes & Metabolism
DX: M81.0 Age-related osteoporosis without current pathological fracture (principal)
CPT/HCPCS: 96374; J3489

== ENCOUNTER 2025-07-01 14:11 | Outpatient (AMB) | payer MEDICARE, MEDICAID, SELFPAY ==
--- NOTE | 2025-07-01 14:32 | MHC.OFFVIS ---
Intake Visit Reasons: 9m/US (set)UA) Intake Note: Patient is present for a 9m follow up with US 06/24 Renal US Urology Medication:Gemtesa, Tamsulosin Antibiotic Allergy:PCN Blood Thinner:Aspirin Rn Float Required: No Allergies Penicillins (PENICILLINS) Allergy (Intermediate, Verified 07/01/25 14:34) RASH/HIVES dexamethasone Allergy (Verified 07/01/25 14:34) Eye Swelling adalimumab (From Humira) Adverse Reaction (Intermediate, Verified 07/01/25 14:34) Chest Pain Medication List - Last Reconciled 07/01/25 by Jt Witt MD acetaminophen ER 650 mg PO TID PRN albuterol sulfate mg inhalation albuterol sulfate 90 mcg/actuation 2 inhalations inhalation QID aspirin 81 mg PO DAILY azithromycin For 500 mg dose pack: take 500 mg once daily for 3 days PO bisacodyl 10 mg (2 x 5 mg) PO BEDTIME khbvcyrouj-sdfsicfg-rxlsymsvxu 160-9-4.8 mcg/actuation (Breztri Aerosphere) 2 inhalations inhalation BID buspirone 15 mg PO BID calcium citrate 500 mg (2 x 250 mg calcium) PO BID celecoxib 100 mg PO DAILY cetirizine 10 mg PO DAILY cholecalciferol (vitamin D3) 50 mcg PO DAILY dicyclomine 20 mg PO QID ezetimibe 10 mg PO DAILY folic acid 1 mg PO DAILY hydrocortisone 2.5% 1 appl PA BID isosorbide mononitrate ER 30 mg PO DAILY lidocaine 1.8% (ZTlido) 1 patch topical DAILY PRN linaclotide (Linzess) 290 mcg PO QAM 30 days ijayer-quktbfgv-llizeuk (pork) 24,000-76,000 -120,000 unit (Creon) 2 caps PO BID lorazepam 1 mg orally 1/2 tablet in the morning and 1 tablet at bedtime; lurasidone mg PO DAILY methotrexate (PF) (Rasuvo (PF)) 25 mg (0.5 mL) subcut QWEEK metoclopramide HCl (Reglan) 5 mg PO QIDACHS metoprolol succinate ER 100 mg PO DAILY mometasone 50 mcg/actuation 2 sprays intranasal DAILY montelukast 10 mg PO DAILY naloxone 4 mg/actuation 0 sprays intranasal nebulizer and compressor ([employer]ol [employer]) As directed nifedipine ER 120 mg (2 x 60 mg) PO DAILY nortriptyline 25 mg PO BEDTIME 90 days oxycodone mg PO oxycodone ER (OxyContin) 30 mg PO BID polyethylene glycol 3350 (Miralax) 17 grams PO DAILY 30 days prednisolone acetate 1% drps ophthalmic (eye) prednisolone sodium phosphate mg PO prednisone PO daily; Take 2 tabs daily x 7 days, then, 1 tab daily x 7 days 14 days pregabalin 300 mg PO BID 30 days rabeprazole 20 mg PO BID roflumilast 500 mcg PO DAILY rosuvastatin 10 mg PO DAILY simethicone (Gas-X Extra Strength) 125 mg PO TID PRN tamsulosin 0.4 mg PO BEDTIME tizanidine 6 mg PO BID PRN 30 days tocilizumab (Actemra ACTPen) 162 mg (0.9 mL) subcut QWEEK valacyclovir 1,000 mg PO DAILY valsartan-hydrochlorothiazide 320-25 mg 1 tab PO DAILY vibegron (Gemtesa) 75 mg PO DAILY zolpidem 10 mg PO BEDTIME PRN 30 days PFSH Medical History ILD (interstitial lung disease) Chest pain Atypical chest pain Bronchitis Hx of nephrolithotomy with removal of calculi Swelling of finger joint of right hand Swelling of finger joint of left hand Hypocalcemia Coronary artery calcification seen on CAT scan Dyspnea Pulmonary nodules COPD (chronic obstructive pulmonary disease) Pulmonary emboli Urinary urgency Hx of hemorrhoids Seropositive rheumatoid arthritis Surgical History Hx of tubal ligation Hx of hand surgery Hx of parathyroidectomy Hx of kyphoplasty History of back surgery History of esophagogastroduodenoscopy (EGD) Hx of colonoscopy Family History Father Cancer Mother Colon cancer HTN (hypertension) Diabetes Breast cancer Brother Lupus HTN (hypertension) Kidney transplanted Sister HTN (hypertension) Cancer Liver transplanted Other FH: cancer FH: mental illness Social History Household Members: None Housing: House Alcohol intake: former Patient Tobacco Use Status: Current everyday Tobacco user Tobacco use type: Cigarette Cigarettes Per Day: 4 Years Smoked: 43 Results AMB Urinalysis, Automated UA Leukoctes 15 Cecilia/uL Last Edit by Blanca Rojas on 07/01/25 16:39 UA Nitrite Negative Last Edit by Blanca Rojas on 07/01/25 16:39 UA Urobilinogen 0.2 mg/dL Last Edit by Blanca Rojas on 07/01/25 16:39 UA Protein 15 mg/dL Last Edit by Blanca Rojas on 07/01/25 16:39 UA pH 6.5 Last Edit by Blanca Rojas on 07/01/25 16:39 UA Blood 0 Art/uL Last Edit by Blanca Rojas on 07/01/25 16:39 UA Specific [place] 1.010 Last Edit by Blanca Rojas on 07/01/25 16:39 UA Ketone Positive Last Edit by Blanca Rojas on 07/01/25 16:39 UA Bilirubin 0 mg/dL Last Edit by Blanca Rojas on 07/01/25 16:39 UA Glucose 0 mg/dL Last Edit by Blanca Rojas on 07/01/25 16:39 Assessment & Plan Assessment & Plan Orders: Orders AMB Urinalysis Automated Today Z13.9 - Encounter for screening, unspecified Medications: Changed From tamsulosin (Flomax) 0.4 mg PO BEDTIME 30 caps 5RF to help with urination To tamsulosin 0.4 mg PO BEDTIME 30 caps 8RF to help with urination Refilled vibegron (Gemtesa) 75 mg PO DAILY 30 tabs 8RF Coding
== END 2025-07-01 15:29 | disposition home or self-care (01) ==
LOC: HO.HUSH 14:12
PROVIDERS: PCP Internal Medicine; Visit Provider Urology
DX: Z13.9 Encounter for screening, unspecified (principal)